=== PATIENT | male | born 1950 | race Two or more races ===

== ENCOUNTER 2017-06-27 13:53 | Inpatient (IN) | payer OTHER ==
[2017-06-27] MEDS ORDERED: METOPROLOL TARTRATE 5 MG/5 ML VIAL ONE ×3 (14:37→15:28)
[2017-06-27] MEDS ORDERED: ASPIRIN 81 MG CHEWABLE TABLETS PO ONE (14:37)
[2017-06-27] MEDS ORDERED: METOPROLOL TARTRATE 5 MG/5 ML VIAL IVPUSH ONE ×3 (14:37→15:30)
[2017-06-27 14:51] LABS: BASO % 0.8 % (0-2.0); HEMATOCRIT 36.9 % (35.4-49); HEMOGLOBIN 11.9 GM/dL (11.7-16.9); LYMPH % 14.3 % (8-40); MCH 27.1 pg (25.7-33.7); MCHC 32.3 g/dl (32.0-35.9); MEAN CELL VOLUME 83.9 fl (80-96); MEAN PLT VOLUME 10.1 fl (7.5-11.1); MONO % 7.3 % (3.8-10.2); NEUT % 76.6 % (42.8-82.8); PLATELET COUNT 232 K/MM3 (134-434); RBC 4.39 M/mm3 (4.00-5.60); RDW 15.6 % (11.9-15.9); WHITE BLOOD COUNT 6.9 K/mm3 (4.0-10.0)
[2017-06-27 15:04] LABS: INR 1.3 (0.82-1.09); PROTHROMBIN TIME (PATIENT) 14.7 SEC (9.7-13.0)
--- NOTE | 2017-06-27 15:13 | PDOC ---
History of Present Illness <Alicia Vanegas - Last Filed: 06/27/17 18:38> <Finesse Fitzpatrick - Last Filed: 06/27/17 19:14> - General Chief Complaint: Chest Pain Stated Complaint: CHEST PAIN Time Seen by Provider: 06/27/17 14:29 - History of Present Illness Initial Comments: 06/27/17 18:38 Patient is a 66 year old Singaporean speaking male with history of hypertension, atrial fibrillation on Coumadin, diabetes and bladder CA s/p chemo and resection with urostomy in place who presents to the ED with chest pain, lightheadedness, sob, palpitations. Patient states that he saw his traffic attendant yesterday for evaluation. Pts family member reports that his blood pressure was abnormally low. He reports associated lightheadedness and shortness of breath. Patient denies fever, chills, nausea, vomiting, diarrhea, melena. Allergies: denies Medications: see nursing notes PCP: Celia Zurita [employer] Officer: Dr. Tejada ([facility]) (Alicia Vanegas) Past History <Alicia Vanegas - Last Filed: 06/27/17 18:38> - Past Medical History Cancer: Yes (Bladder) COPD: No Diabetes: Yes HTN: Yes - Surgical History Abdominal Surgery: Yes (RT ABD UROSTOMY) Neurologic Surgery: Yes - Immunization History Immunization Up to Date: No - Suicide/Smoking/Psychosocial Hx Smoking Status: No Smoking History: Never smoked Number of Cigarettes Smoked Daily: 0 Hx Alcohol Use: No Drug/Substance Use Hx: No Substance Use Type: None Hx Substance Use Treatment: No <Finesse Fitzpatrick - Last Filed: 06/27/17 19:14> - Past Medical History Allergies/Adverse Reactions: Allergies Allergy/AdvReac Type Severity Reaction Status Date / Time No Known Allergies Allergy Verified 06/27/17 14:01 Home Medications: Ambulatory Orders Alfuzosin HCl [Uroxatral] 10 mg PO DAILY 03/04/15 Aspirin [Aspirin EC] 81 mg PO DAILY 03/04/15 Cholecalciferol (Vitamin D3) [Vitamin D -] 400 unit PO DAILY 03/04/15 Citalopram Hydrobromide [Celexa -] 10 mg PO DAILY 03/04/15 Simvastatin [Zocor -] 20 mg PO HS 01/24/16 Metoprolol Tartrate 50 mg PO BID #60 tablet 03/08/15 Warfarin Na [Coumadin] 3 mg PO DAILY #30 tablet 03/08/15 Review of Systems <Alicia Vanegas - Last Filed: 06/27/17 18:38> <Finesse Fitzpatrick - Last Filed: 06/27/17 19:14> - Review of Systems Comments:: CONSTITUTIONAL: No reported: Fever, Chills, Diaphoresis, Generalized Weakness, Malaise, Loss of Appetite HEENT: No reported: Rhinorrhea, Nasal Congestion, Throat Pain, Throat Swelling, Difficulty Swallowing, Mouth Swelling, Ear Pain, Eye Pain, Visual Changes CARDIOVASCULAR: Reported: Chest Pain, Lightheadedness, Palpitations, No reported: , Syncope, Irregular Heart Rate, Peripheral Edema RESPIRATORY: Reported: Shortness of Breath No reported: Cough, SOB with Exertion, Orthopnea, Wheezing, Stridor, Hemoptysis GASTROINTESTINAL: Reported: Abdominal pain No reported: , Abdominal Distension, Nausea, Vomiting, Diarrhea, Constipation, Melena, Hematochezia GENITOURINARY: No reported: Dysuria, Frequency, Urgency, Hesitancy, Flank Pain, Genital Pain MUSCULOSKELETAL: No reported: Myalgia, Arthralgia, Joint Swelling, Back pain, Neck Pain SKIN: No reported: Rash, Itching, Pallor HEMEATOLOGIC/IMMUNOLOGIC: No reported: Easy Bleeding, Easy Bruising, Lymphadenopathy, Frequent infections ENDOCRINE: No reported: Unexplained Weight Gain, Unexplained Weight Loss, Heat Intolerance , Cold Intolerance NEUROLOGIC: No reported: Headache, Focal Weakness, Paresthesias, Vertigo, Lightheadedness, Unsteady Gait, Seizure, Mental Status Changes, Incontinence PSYCHIATRIC: No reported: Anxiety, Depression 06/27/17 18:39 (Alicia Vanegas) *Physical Exam <Alicia Vanegas - Last Filed: 06/27/17 18:38> <Finesse Fitzpatrick - Last Filed: 06/27/17 19:14> - Vital Signs Last Vital Signs Temp Pulse Resp BP Pulse Ox 98.0 F 96 H 18 122/83 96 06/27/17 18:53 06/27/17 18:53 06/27/17 18:53 06/27/17 18:53 06/27/17 18:53 - Physical Exam Comments: 06/27/17 18:39 GENERAL: The patient is awake, alert, and fully oriented, Nontoxic - in no acute distress. HEAD: Normocephalic, atraumatic. EYES: extraocular movements intact, sclera anicteric, conjunctiva clear. ENT: Normal voice, Moist mucous membranes. NECK: Normal range of motion, supple LUNGS: Breath sounds equal, clear to auscultation bilaterally. No wheezes, no rhonchi, no rales. HEART: Tachycardic. Irregular rate and rhythm, without murmur, rub or gallop. ABDOMEN: Soft, nontender, No guarding, no rebound.No CVA tenderness EXTREMITIES: Normal range of motion, trace edema. No cyanosis. No erythema, or tenderness. NEUROLOGICAL: No facial asymmetry, Normal speech, moving all 4 extremities spontaneously symmetrically PSYCH: Normal mood, normal affect. SKIN: Warm, Dry, normal turgor. (Alicia Vanegas) Heart Score/ECG Review <Alicia Vanegas - Last Filed: 06/27/17 18:38> <Finesse Fitzpatrick - Last Filed: 06/27/17 19:14> - ECG Impressions Comment:: 06/27/17 15:42 Twelve-lead EKG was performed and reviewed by me. Irregularly irregular rate of [address] depressionso n lateral leads impression: afib w/ rvr 06/27/17 16:41 Twelve-lead EKG was performed and reviewed by me. irregularluy irregular w HR of 108 twi in lateral leads (Finesse Fitzpatrick) ED Treatment Course - LABORATORY CBC & Chemistry Diagram: 06/27/17 14:20 06/27/17 14:20 - Consult/PCP Time Called: 16:35 (Parminder Bullard) <Alicia Vanegas - Last Filed: 06/27/17 18:38> - LABORATORY CBC & Chemistry Diagram: 06/27/17 14:20 06/27/17 14:20 <Finesse Fitzpatrick - Last Filed: 06/27/17 19:14> - ADDITIONAL ORDERS Additional order review: Laboratory Results 06/27/17 06/27/17 06/27/17 14:20 14:20 14:20 PT with INR 14.70 H INR 1.30 H D Sodium 139 Potassium 4.7 Chloride 109 H Carbon Dioxide 25 Anion Gap 5 L BUN 29 H D Creatinine 1.5 H D Creat Clearance w eGFR 46.54 Random Glucose 144 H Calcium 8.7 Magnesium 1.9 Total Bilirubin 0.7 D AST 14 L ALT 20 D Alkaline Phosphatase 107 D Creatine Kinase 98 Troponin I < 0.02 B-Natriuretic Peptide 4810.01 H Total Protein 7.4 D Albumin 3.5 D TSH 1.25 D 06/27/17 14:20 RBC 4.39 D MCV 83.9 MCHC 32.3 RDW 15.6 MPV 10.1 Neutrophils % 76.6 Lymphocytes % 14.3 Monocytes % 7.3 Eosinophils % 1.0 Basophils % 0.8 - RADIOLOGY Radiology Studies Ordered: Category Date Time Status CHEST X-RAY PORTABLE* [RAD] Stat Radiology 06/27/17 14:37 Completed Radiograph Interpretation: 06/27/17 17:20 Chest X-ray Imaging reveals a large heart, apical lordotic projection, lower cervical spine fusion and some congestive changes. A discrete infiltrate is not seen. The angles are sharp and the soft tissues are intact. Correlation recommended. Reported By: Sergio Kang MD 06/27/17 3523 (Alicia Vanegas) - Medications Given in the ED: ED Medications Discontinued Medications Generic Name Dose Route Start Last Admin Trade Name Freq PRN Reason Stop Dose Admin Aspirin 162 mg 06/27/17 14:37 06/27/17 15:04 Asa - PO 06/27/17 14:38 162 mg ONCE ONE Administration Diltiazem HCl 10 mg 06/27/17 16:32 06/27/17 16:35 Cardizem Injection - IVPUSH 06/27/17 16:33 10 mg ONCE ONE Administration Diltiazem HCl 30 mg 06/27/17 16:40 06/27/17 16:45 Cardizem - PO 06/27/17 16:41 30 mg ONCE ONE Administration Heparin Sodium (Porcine) 5,000 unit 06/27/17 18:26 06/27/17 18:29 Heparin - IVPUSH 06/27/17 18:27 5,000 unit ONCE ONE Administration Metoprolol Tartrate 5 mg 06/27/17 14:37 06/27/17 15:03 Lopressor Injection - IVPUSH 06/27/17 14:38 5 mg ONCE ONE Administration Metoprolol Tartrate 5 mg 06/27/17 15:10 06/27/17 15:14 Lopressor Injection - IVPUSH 06/27/17 15:11 5 mg ONCE ONE Administration Metoprolol Tartrate 5 mg 06/27/17 15:30 06/27/17 15:30 Lopressor Injection - IVPUSH 06/27/17 15:31 5 mg ONCE ONE Administration Medical Decision Making <Alicia Vanegas - Last Filed: 06/27/17 18:38> <Finesse Fitzpatrick - Last Filed: 06/27/17 19:14> - Medical Decision Making 06/27/17 15:36 66y M hx of bladder ca, htn, dm, afib on coumadin presents with complaint of feeling chest pain/lightheadedness, sob, for the past week, had gone to dr. pruett who referred the pt to cardiology. the pt presents today due to perssitent symptoms. on arrival pt noted with HR of 161 afib RVR on ekg ptw as brought to a room placed on monitor, given 5mg metoprolol x 3, bp stable in the 130s/80s. 06/27/17 16:40 HR improved with 10mg dilt IV will give dilt 30mg PO - recommended of 30mg Q6 hr per cardiology, and increase metoprolol 50mg Q8hr per will admit for furhter managment due to cr, will give heparin rather than lovenox 06/27/17 16:[address] delgadillo agree with admission fo furrther management of rapid afib and subtherapeutic inr stabel or tele 06/27/17 19:10 CRITICAL CARE DOCUMENTATION: I spent ~75 minutes of Critical Care time, excluding separately billable procedures, involving high complexity decision making to assess, manipulate and support vital system function(s) to treat single or multiple vital organ system failure and/or to prevent further life threatening deterioration of the patient' s condition. Case discussed in detail with admitting physician including history, physical exam and ancillary studies. Admitting physician has assumed care for the patient, will follow all pending diagnostics and will complete the evaluation and treatment. (Finesse Fitzpatrick) *DC/Admit/Observation/Transfer <Alicia Vanegas - Last Filed: 06/27/17 18:38> - Discharge Dispostion Decision to Admit order: Yes <Finesse Fitzpatrick - Last Filed: 06/27/17 19:14> Diagnosis at time of Disposition: Supratherapeutic INR Atrial fibrillation Qualifiers: Atrial fibrillation type: unspecified Qualified Code(s): I48.91 - Unspecified atrial fibrillation - Discharge Dispostion Condition at time of disposition: Stable - Attestations Scribe Attestion: 06/27/17 18:40 Documentation prepared by Alicia Vanegas, acting as director medical safety for Finesse Fitzpatrick MD. (Alicia Vanegas)
[2017-06-27 15:17] LABS: ALBUMIN 3.5 g/dl (3.4-5.0); ANION GAP 5 (8-16); BILIRUBIN,TOTAL 0.7 mg/dL (0.2-1.0); BLOOD UREA NITROGEN 29 mg/dL (7-18); CALCIUM 8.7 mg/dL (8.5-10.1); CHLORIDE 109 mmol/L (98-107); CO2 25 mmol/L (21-32); CREATININE 1.5 mg/dL (0.7-1.3); GLUCOSE,RANDOM 144 mg/dL (74-106); MAGNESIUM 1.9 mg/dL (1.8-2.4); POTASSIUM 4.7 mmol/L (3.5-5.1); SGOT/AST 14 U/L (15-37); SGPT/ALT 20 U/L (12-78); SODIUM 139 mmol/L (136-145); TOT PROT 7.4 g/dl (6.4-8.2)
[2017-06-27 15:20] LABS: ALK PHOS 107 U/L (45-117); N-TERMINAL BNP 4810.01 pg/ml (5-125)
[2017-06-27] MEDS ORDERED: ASPIRIN 81 MG CHEWABLE TABLETS ONE (15:25)
[2017-06-27] MEDS ORDERED: dilTIAZem HCL 125 MG/25 ML - 25 ML VIAL ONE (16:19)
[2017-06-27] MEDS ORDERED: dilTIAZem HCL 50 MG/10 ML - 10 ML VIAL IVPUSH ONE (16:32)
[2017-06-27] MEDS ORDERED: dilTIAZem HCL 30 MG TABLET (FP) PO ONE (16:40)
[2017-06-27] MEDS ORDERED: dilTIAZem HCL 30 MG TABLET (FP) ONE (16:47)
--- NOTE | 2017-06-27 17:52 | CON.CARD ---
Consult Consult Specialty:: cardiology Reason for Consultation:: AF with RVR - History of Present Illness Chief Complaint: shortness of breath History of Present Illness: 66y M hx of bladder ca, htn, dm, afib on coumadin, nonobstructive CAD on 2013 coronary angiogram (per pt's son), who presents with complaint of feeling chest pain/lightheadedness, sob, for the past week, had gone to dr. morales who referred the pt to cardiology. the pt presents today due to perssitent symptoms. on arrival pt noted with HR of 161 afib RVR on ekg ptw as brought to a room placed on monitor, given 5mg metoprolol x 3, bp stable in the 130s/80s. Pt was in Dr. Morales's office yesterday, and was noted by him to be in AF with RVR for the first time). INR subtherapeutic (?it had been held for a bladder procedure) - History Source History Provided By: Patient, Family Member, Medical Record Limitations to Obtaining History: No Limitations - Past Medical History Cardio/Vascular: Yes: AFIB, HTN, Hyperlipdemia Pulmonary: Yes: Sleep Apnea (rule out) Renal/: Yes: Cancer (bladder) Endocrine: Yes: Diabetes Mellitus - Alcohol/Substance Use Hx Alcohol Use: No History of Substance Use: reports: None - Smoking History Smoking history: Never smoked Aproximately how many cigarettes per day: 0 - Social History ADL: Independent History of Recent Travel: Yes ([place]) Home Medications - Allergies Allergies/Adverse Reactions: Allergies Allergy/AdvReac Type Severity Reaction Status Date / Time No Known Allergies Allergy Verified 06/27/17 14:01 - Home Medications Home Medications: Ambulatory Orders Alfuzosin HCl [Uroxatral] 10 mg PO DAILY 03/04/15 Aspirin [Aspirin EC] 81 mg PO DAILY 03/04/15 Cholecalciferol (Vitamin D3) [Vitamin D -] 400 unit PO DAILY 03/04/15 Citalopram Hydrobromide [Celexa -] 10 mg PO DAILY 03/04/15 Simvastatin [Zocor -] 20 mg PO HS 03/04/15 Metoprolol Tartrate 50 mg PO BID #60 tablet 03/08/15 Warfarin Na [Coumadin] 3 mg PO DAILY #30 tablet 03/08/15 Family Disease History - Family Disease History Family History: Denies Review of Systems - Review of Systems Constitutional: reports: No Symptoms Eyes: reports: No Symptoms HENT: reports: No Symptoms Neck: reports: No Symptoms Cardiovascular: reports: Chest Pain, Shortness of Breath Respiratory: reports: Exercise Intolerance, SOB Genitourinary: reports: No Symptoms Breasts: reports: No Symptoms Reported Musculoskeletal: reports: Muscle Weakness Integumentary: reports: No Symptoms Neurological: reports: Weakness Endocrine: reports: No Symptoms Hematology/Lymphatic: reports: No Symptoms Psychiatric: reports: No Symptoms - Risk Factors Known Risk Factors: Yes: Age, Gender, Hypercholesterolemia, Hypertension, Physical Inactivity, Other (CHF; AF) Vital Signs: Vital Signs Temperature 98.0 F 06/27/17 16:26 Pulse Rate 106 H 06/27/17 17:10 Respiratory Rate 16 06/27/17 17:10 Blood Pressure 99/76 06/27/17 17:10 O2 Sat by Pulse Oximetry (%) 98 06/27/17 17:10 Constitutional: Yes: Anxious, Mild Distress Eyes: Yes: WNL HENT: Yes: WNL Neck: Yes: Supple Respiratory: Yes: Diminished, Tachypnea Gastrointestinal: Yes: Soft Renal/: No: Anuria Cardiovascular: Yes: Tachycardia, Pulse Irregular Heart Sounds: Yes: S1 (varies in intensity), S2 Murmur: Yes: Systolic Murmur, Grade 2 Extremities: Yes: Cool Edema: Yes Edema: LLE: Trace, RLE: Trace Peripheral Pulses WNL: Yes Integumentary: Yes: WNL Neurological: Yes: Alert, Oriented, Weakness Psychiatric: Yes: WNL - Other Data Labs, Other Data: CBC, BMP 06/27/17 14:20 06/27/17 14:20 INR, PTT INR 1.30 (0.82-1.09) H D 06/27/17 14:20 Troponin, BNP 06/27/17 14:20 Troponin I < 0.02 B-Natriuretic Peptide 4810.01 H Troponin, BNP 06/27/17 14:20 Troponin I < 0.02 B-Natriuretic Peptide 4810.01 H Abnormal Lab Results 06/27/17 06/27/17 06/27/17 14:20 14:20 17:10 Hgb Hct Neutrophils % PT with INR 14.70 H INR 1.30 H D PTT (Actin FS) D-Dimer ABG pO2 at Pt Temp ABG HCO3 ABG O2 Sat (Measured) ABG Base Excess Chloride 109 H Anion Gap 5 L BUN 29 H D Creatinine 1.5 H D Random Glucose 144 H Calcium AST 14 L B-Natriuretic Peptide 4810.01 H HDL Cholesterol Free T4 1.21 H 06/28/17 06/28/17 06/28/17 01:15 02:43 03:15 Hgb Hct Neutrophils % PT with INR INR PTT (Actin FS) 39.6 H D D-Dimer 1027 H ABG pO2 at Pt Temp 217.0 H* ABG HCO3 19.0 L ABG O2 Sat (Measured) 99.7 H* ABG Base Excess -5.3 L Chloride Anion Gap BUN Creatinine Random Glucose Calcium AST B-Natriuretic Peptide HDL Cholesterol Free T4 06/28/17 06/28/17 06:00 06:00 Hgb 11.3 L Hct 34.2 L Neutrophils % 84.9 H PT with INR INR PTT (Actin FS) D-Dimer ABG pO2 at Pt Temp ABG HCO3 ABG O2 Sat (Measured) ABG Base Excess Chloride 109 H Anion Gap 7 L BUN 38 H D Creatinine 1.7 H Random Glucose 180 H D Calcium 7.9 L AST B-Natriuretic Peptide HDL Cholesterol 23 L Free T4 Imaging - Results EKG: Image Reviewed (AF with RVR) Problem List - Problems (1) Obesity Code(s): E66.9 - OBESITY, UNSPECIFIED (2) Atrial fibrillation with rapid ventricular response Assessment/Plan: On metoprolol: increase dose to 50 mg q8h. Now on diltiazem 30 mg PO q6h. IV heparin until warfarin --> INR 2-3. F/u telemetry. Serial HR and BP. TSH Serial TNIs Serial EKG ECHO for LVEF, wall motion, chamber sizes. Code(s): I48.91 - UNSPECIFIED ATRIAL FIBRILLATION (3) Hyperlipidemia Code(s): E78.5 - HYPERLIPIDEMIA, UNSPECIFIED Qualifiers: Hyperlipidemia type: Pure hypercholesterolemia (4) Hypertension Code(s): I10 - ESSENTIAL (PRIMARY) HYPERTENSION Qualifiers: Hypertension type: essential hypertension Qualified Code(s): I10 - Essential (primary) hypertension (5) CAD (coronary artery disease) Assessment/Plan: Son reports 30-40% ?two vessel disease on 2014 angiogram. F/u records. Reported STT changes noted while in AF qwith RVR in office yesterday. F/u TNI serially: initial TNI is < 0.02.. TSH WNL. Stress MIBI when stable. Code(s): I25.10 - ATHSCL HEART DISEASE OF [place] CORONARY ARTERY W/O ANG PCTRS
[2017-06-27] MEDS ORDERED: HEPARIN NA (PORCINE) 5,000 UNITS/ML 1ML VIAL IVPUSH ONE (18:26)
[2017-06-27] MEDS ORDERED: HEPARIN NA (PORCINE) 5,000 UNITS/ML 1ML VIAL ONE (18:41)
[2017-06-27] MEDS: HEPARIN INFUSION - 25,000 UNITS/500 ML INFUS.BAG IVPB SCH (18:45)
[2017-06-27] MEDS ORDERED: ENOXAPARIN NA (PORCINE) 120 MG/0.8 ML DISP.SYRIN SQ SCH (22:00)
[2017-06-27] MEDS ORDERED: ATORVASTATIN CA 10 MG TABLET (FP) PO SCH (22:00)
[2017-06-27] MEDS: METOPROLOL TARTRATE 50 MG TABLET (FP) PO SCH (22:18)
[2017-06-28] MEDS ORDERED: dilTIAZem HCL 25 MG/5 ML - 5 ML VIAL IVPUSH PRN (00:03)
[2017-06-28 00:36] VITALS: BMI 36.8
[2017-06-28] MEDS: dilTIAZem HCL 30 MG TABLET (FP) PO SCH ×4 (01:52→17:59)
[2017-06-28] MEDS ORDERED: FUROSEMIDE 40 MG/4 ML INJECTABLE VIAL ONE (02:37)
[2017-06-28] MEDS ORDERED: FUROSEMIDE 40 MG/4 ML INJECTABLE VIAL IVPUSH ONE ×2 (02:45→03:22)
[2017-06-28] MEDS ORDERED: ISOSORBIDE MONONITRATE 30 MG TAB.SR.24H (FP) PO ONE (02:45)
[2017-06-28 03:32] LABS: ARTERIAL BLOOD GAS BASE EXCESS -5.3 meq/l (-2-2); ARTERIAL BLOOD GAS PCO2 35.1 mmHg (35-45); ARTERIAL BLOOD GAS pH 7.35 (7.35-7.45)
[2017-06-28 03:36] LABS: ALLENS TEST POSITIVE
[2017-06-28 03:40] LABS: ARTERIAL BLD GAS O2 SATURATION 99.7 % (90-98.9)
--- NOTE | 2017-06-28 06:23 | HOSP ---
Subjective - Review of Symptoms Subjective: This is a delayed entry. Called by RN at approximately 12:30AM as pt was diaphoretic, hypoxic with worsening SOB. Examined patient at bedside. 02 sat 86% on 3L NC HOB elevated, pt placed on non-rebreather mask and improved sat to 92-93%. Respiratory at bedside, neb tx x 1 given. Stat troponin ordered (returned negative), stat EKG done without significant changes from past EKG. Pt sx improved, no longer c/o SOB, appeared comfortable. Called again at 3AM by nurse for reevaluation - pt still sat 100% on non-rebreather. Pt no longer SOB, sleeping. On exam, in sinus and with bibasilar crackles. -ABG was done - with elevated P02 at 207, ordered for change to NC 02 -CXR ordered -20mg Lasix IVP x 1 given Pt currently feeling improved without complaint, sat well. Physical Examination Vital Signs: Vital Signs Temperature 97.8 F 06/27/17 21:00 Pulse Rate 126 H 06/27/17 21:00 Respiratory Rate 20 06/27/17 21:00 Blood Pressure 130/96 06/27/17 21:00 O2 Sat by Pulse Oximetry (%) 94 L 06/27/17 21:00 Labs: CBC, BMP 06/27/17 14:20 06/27/17 14:20 Visit type - Emergency Visit Emergency Visit: No - New Patient This patient is new to me today: Yes Date on this admission: 06/28/17 - Critical Care Critical Care patient: No
[2017-06-28] MEDS: METOPROLOL TARTRATE 50 MG TABLET (FP) PO SCH ×4 (06:44→22:17)
[2017-06-28 06:52] LABS: BASO % 0.4 % (0-2.0); EOS % 0.1 % (0-4.5); HEMATOCRIT 34.2 % (35.4-49); HEMOGLOBIN 11.3 GM/dL (11.7-16.9); LYMPH % 8.4 % (8-40); MCH 27.8 pg (25.7-33.7); MCHC 32.9 g/dl (32.0-35.9); MEAN CELL VOLUME 84.5 fl (80-96); MEAN PLT VOLUME 10.1 fl (7.5-11.1); MONO % 6.2 % (3.8-10.2); NEUT % 84.9 % (42.8-82.8); PLATELET COUNT 238 K/MM3 (134-434); RBC 4.05 M/mm3 (4.00-5.60); RDW 15.5 % (11.9-15.9); WHITE BLOOD COUNT 9.1 K/mm3 (4.0-10.0)
[2017-06-28 07:10] LABS: CHLORIDE 109 mmol/L (98-107); CHOLESTEROL 107 mg/dL (50-200); POTASSIUM 4.9 mmol/L (3.5-5.1); SODIUM 140 mmol/L (136-145); TRIGLYCERIDES 80 mg/dL (35-160)
[2017-06-28 07:25] LABS: ANION GAP 7 (8-16); BLOOD UREA NITROGEN 38 mg/dL (7-18); CALCIUM 7.9 mg/dL (8.5-10.1); CO2 24 mmol/L (21-32); CREATININE 1.7 mg/dL (0.7-1.3); GLUCOSE,RANDOM 180 mg/dL (74-106); HDL CHOLESTEROL 23 mg/dL (40-60)
[2017-06-28] MEDS: HEPARIN INFUSION - 25,000 UNITS/500 ML INFUS.BAG IVPB SCH ×2 (09:00→18:00)
--- NOTE | 2017-06-28 09:55 | PN ---
Progress Note, Physician Chief Complaint: Pt sitting up; A&Ox3; feels better now (less dyspneic). Last night, converted to sinus rhythm; then had SOB with diaphoresis-->100% nonrebreather transiently. Responded to IV furosemide, Imdur. Now again in AF. History of Present Illness: 66y M hx of bladder ca, htn, dm, afib on coumadin, nonobstructive CAD on 2013 coronary angiogram (per pt's son), who presents with complaint of feeling chest pain/lightheadedness, sob, for the past week, had gone to dr. morales who referred the pt to cardiology. the pt presents today due to perssitent symptoms. on arrival pt noted with HR of 161 afib RVR on ekg ptw as brought to a room placed on monitor, given 5mg metoprolol x 3, bp stable in the 130s/80s. Pt was in Dr. Morales's office yesterday, and was noted by him to be in AF with RVR for the first time). INR subtherapeutic (?it had been held for a bladder procedure) - Current Medication List Current Medications: Active Medications Aspirin (Ecotrin -) 81 mg PO DAILY [facility] Atorvastatin Calcium (Lipitor -) 10 mg PO HS [facility] Last Admin: 06/27/17 22:18 Dose: 10 mg Cholecalciferol (Vitamin D3 -) 400 unit PO DAILY [facility] Citalopram Hydrobromide (Celexa -) 10 mg PO DAILY [facility] Diltiazem HCl (Cardizem -) 30 mg PO Q6HPO [facility] Last Admin: 06/28/17 06:44 Dose: Not Given Diltiazem HCl (Cardizem Injection -) 10 mg IVPUSH Q6H PRN PRN Reason: HR > 160 Heparin Sodium/Dextrose (Heparin Infusion -) 25,000 units in 500 mls @ 20 mls/ hr IVPB TITR ANGELITA; 1,000 UNITS/HR PRN Reason: Protocol Last Titration: 06/28/17 02:47 Dose: 1,150 units/hr, 23 mls/hr Metoprolol Tartrate (Lopressor -) 50 mg PO BID [facility] Last Admin: 06/27/17 22:18 Dose: 50 mg Metoprolol Tartrate (Lopressor -) 50 mg PO TID [facility] Last Admin: 06/28/17 06:44 Dose: 50 mg Pantoprazole Sodium (Protonix -) 20 mg PO DAILY [facility] Tamsulosin HCl (Flomax -) 0.4 mg PO DAILY@0830 [facility] Warfarin Sodium (Coumadin -) 5 mg PO DAILY@1800 [facility] - Objective Vital Signs: Vital Signs Temperature 98.3 F 06/28/17 06:23 Pulse Rate 70 06/28/17 06:23 Respiratory Rate 20 06/28/17 06:23 Blood Pressure 114/67 06/28/17 06:23 O2 Sat by Pulse Oximetry (%) 94 L 06/27/17 21:00 Constitutional: Yes: Calm Eyes: Yes: WNL HENT: Yes: WNL Neck: Yes: WNL Cardiovascular: Yes: Pulse Irregular, S1 (varies in intensity), S2 Respiratory: Yes: Diminished Gastrointestinal: Yes: Soft ...Rectal Exam: Yes: Deferred Genitourinary: No: Anuria Musculoskeletal: Yes: Muscle Weakness Extremities: Yes: Cool Edema: Yes Edema: LLE: Trace, RLE: Trace Peripheral Pulses WNL: Yes Neurological: Yes: WNL Psychiatric: Yes: WNL Labs: CBC, BMP 06/28/17 06:00 06/28/17 06:00 INR, PTT INR 1.30 (0.82-1.09) H D 06/27/17 14:20 Abnormal Lab Results 06/28/17 06/28/17 06/28/17 06:00 06:00 14:40 RBC Hgb Hct PT with INR INR PTT (Actin FS) 51.2 H Chloride 109 H Anion Gap 7 L BUN 38 H D Creatinine 1.7 H Random Glucose 180 H D Hemoglobin A1c % 7.3 H D Calcium 7.9 L HDL Cholesterol 23 L 06/29/17 06/29/17 06:25 06:25 RBC 3.93 L Hgb 10.7 L Hct 33.1 L PT with INR 14.90 H INR 1.32 H PTT (Actin FS) Chloride Anion Gap BUN Creatinine Random Glucose Hemoglobin A1c % Calcium HDL Cholesterol - ....Imaging Other: Image Reviewed (telemetry: AF with RVR converted to NSR overnight; in early am, reverted back to AF) Problem List - Problems (1) Obesity Code(s): E66.9 - OBESITY, UNSPECIFIED (2) Atrial fibrillation with rapid ventricular response Assessment/Plan: On metoprolol: increase dose to 50 mg q8h. Now on diltiazem 30 mg PO q6h (held doses when BP dropped and pt was in NSR; consider restart today given recurrence of AF). IV heparin until warfarin --> INR 2-3. F/u telemetry. Serial HR and BP. TSH WNL. Serial TNIs: < 0.02 Serial EKG ECHO for LVEF, wall motion, chamber sizes. Code(s): I48.91 - UNSPECIFIED ATRIAL FIBRILLATION (3) Hyperlipidemia Code(s): E78.5 - HYPERLIPIDEMIA, UNSPECIFIED Qualifiers: Hyperlipidemia type: Pure hypercholesterolemia (4) Hypertension Code(s): I10 - ESSENTIAL (PRIMARY) HYPERTENSION Qualifiers: Hypertension type: essential hypertension Qualified Code(s): I10 - Essential (primary) hypertension (5) CAD (coronary artery disease) Assessment/Plan: Son reports 30-40% ?two vessel disease on 2014 angiogram. F/u records. Reported STT changes noted while in AF with RVR in office yesterday. F/u TNI serially: initial TNI is < 0.02.. TSH WNL. Stress MIBI done 12/2016: no evidence of ischemia. Given STT changes noted while in AF with RVR, and clinical picture, vic require further evaluation to r/o CAD, likely coronary angiogram. Code(s): I25.10 - ATHSCL HEART DISEASE OF [place] CORONARY ARTERY W/O ANG PCTRS
[2017-06-28] MEDS: CHOLECALCIFEROL (VITAMIN D3) 400 UNIT TABLET (FP) PO SCH (10:00)
--- NOTE | 2017-06-28 10:22 | HP ---
Admitting History and Physical - Admission History of Present Illness: 66 year old Guinean speaking male with history of hypertension, atrial fibrillation on Coumadin, diabetes and bladder CA s/p chemo and resection with urostomy in place who presents to the ED with chest pain, lightheadedness, sob, palpitations. Patient states that he saw his systems engineer (DR Briones from [facility]) on thursday and w/u in progress for cad. Last night pt had sob requiring more oxygen This am better no cp - Past Medical History Cardiovascular: Yes: AFIB, HTN, Hyperlipdemia Pulmonary: Yes: Sleep Apnea (rule out) Renal/: Yes: Cancer (bladder) Endocrine: Yes: Diabetes Mellitus - Smoking History Smoking history: Never smoked Have you smoked in the past 12 months: No Aproximately how many cigarettes per day: 0 - Alcohol/Substance Use Hx Alcohol Use: No History of Substance Use: reports: None - Social History ADL: Independent History of Recent Travel: Yes ([place]) Home Medications - Allergies Allergies/Adverse Reactions: Allergies Allergy/AdvReac Type Severity Reaction Status Date / Time No Known Allergies Allergy Verified 06/27/17 14:01 - Home Medications Home Medications: Ambulatory Orders Alfuzosin HCl [Uroxatral] 10 mg PO DAILY 03/04/15 Aspirin [Aspirin EC] 81 mg PO DAILY 03/04/15 Cholecalciferol (Vitamin D3) [Vitamin D -] 400 unit PO DAILY 03/04/15 Citalopram Hydrobromide [Celexa -] 10 mg PO DAILY 03/04/15 Simvastatin [Zocor -] 20 mg PO HS 03/04/15 Metoprolol Tartrate 50 mg PO BID #60 tablet 03/08/15 Warfarin Na [Coumadin] 3 mg PO DAILY #30 tablet 03/08/15 Review of Systems - Review of Systems Constitutional: reports: Weakness Cardiovascular: reports: Chest Pain, Palpitations. denies: Edema Respiratory: reports: SOB, SOB on Exertion Neurological: reports: Weakness Physical Examination Vital Signs: Vital Signs Temperature 98.3 F 06/28/17 06:23 Pulse Rate 70 06/28/17 06:23 Respiratory Rate 20 06/28/17 06:23 Blood Pressure 114/67 06/28/17 06:23 O2 Sat by Pulse Oximetry (%) 94 L 06/27/17 21:00 Cardiovascular: Yes: Pulse Irregular, S1, S2 Respiratory: Yes: Regular, CTA Bilaterally Gastrointestinal: Yes: Normal Bowel Sounds, Soft Edema: No Labs: CBC, BMP 06/28/17 06:00 06/28/17 06:00 Problem List - Problems (1) Atrial fibrillation Assessment/Plan: -continue with AC --coumadin and heparin -same meds and monitor rate Code(s): I48.91 - UNSPECIFIED ATRIAL FIBRILLATION Qualifiers: Atrial fibrillation type: unspecified Qualified Code(s): I48.91 - Unspecified atrial fibrillation (2) CAD (coronary artery disease) Assessment/Plan: -on asa -pt will need yo follow up with cardio regarding cath depending on hospital course -statin -echo Code(s): I25.10 - ATHSCL HEART DISEASE OF [place] CORONARY ARTERY W/O ANG PCTRS (3) Hyperlipidemia Code(s): E78.5 - HYPERLIPIDEMIA, UNSPECIFIED Qualifiers: Hyperlipidemia type: Pure hypercholesterolemia (4) Hypertension Code(s): I10 - ESSENTIAL (PRIMARY) HYPERTENSION Qualifiers: Hypertension type: essential hypertension Qualified Code(s): I10 - Essential (primary) hypertension (5) CHF (congestive heart failure) Code(s): I50.9 - HEART FAILURE, UNSPECIFIED (6) SOB (shortness of breath) Code(s): R06.02 - SHORTNESS OF BREATH
[2017-06-28] MEDS: PANTOPRAZOLE 20 MG TABLET (FP) PO SCH (10:32)
[2017-06-28] MEDS: CITALOPRAM HYDROBROMIDE 10 MG TABLET (FP) PO SCH (10:32)
[2017-06-28] MEDS: TAMSULOSIN HCL 0.4 MG CAP.ER.24H (FP) PO SCH (10:32)
[2017-06-28] MEDS: ASPIRIN COATED 81 MG TABLET.EC PO SCH (10:32)
--- NOTE | 2017-06-28 13:46 | CON.PULM ---
Consult Consult Specialty:: PULMONARY Referred by:: MANOJ Reason for Consultation:: SOB - History of Present Illness Chief Complaint: SOB History of Present Illness: Patient is a 66 year old Cambodian speaking male with history of hypertension, atrial fibrillation on Coumadin, diabetes and bladder CA s/p chemo and resection with urostomy in place who presents to the ED with chest pain, lightheadedness, sob, palpitations. Patient states that he saw his site inspector yesterday for evaluation. Pts family member reports that his blood pressure was abnormally low. He reports associated lightheadedness and shortness of breath. Patient denies fever, chills, nausea, vomiting, diarrhea, melena. 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 Cardio/Vascular: Yes: AFIB, HTN, Hyperlipdemia Pulmonary: Yes: Sleep Apnea (rule out) Gastrointestinal: No: Ascites Hepatobiliary: No: Cirrhosis Renal/: Yes: Renal Inusuff, Cancer (bladder) Heme/Onc: Yes: Anemia Endocrine: Yes: Diabetes Mellitus - Alcohol/Substance Use Hx Alcohol Use: No History of Substance Use: reports: None - Smoking History Smoking history: Never smoked Have you smoked in the past 12 months: No Aproximately how many cigarettes per day: 0 - Social History ADL: Independent Place of : Other History of Recent Travel: Yes ([place]) Home Medications - Allergies Allergies/Adverse Reactions: Allergies Allergy/AdvReac Type Severity Reaction Status Date / Time No Known Allergies Allergy Verified 06/27/17 14:01 - Home Medications Home Medications: Ambulatory Orders Alfuzosin HCl [Uroxatral] 10 mg PO DAILY 03/04/15 Aspirin [Aspirin EC] 81 mg PO DAILY 03/04/15 Cholecalciferol (Vitamin D3) [Vitamin D -] 400 unit PO DAILY 03/04/15 Citalopram Hydrobromide [Celexa -] 10 mg PO DAILY 03/04/15 Simvastatin [Zocor -] 20 mg PO HS 03/04/15 Metoprolol Tartrate 50 mg PO BID #60 tablet 03/08/15 Warfarin Na [Coumadin] 3 mg PO DAILY #30 tablet 03/08/15 Family Disease History - Family Disease History Family History: Unremarkable Review of Systems Unable to obtain ROS, reason: DIFFICULT TO OBTAIN - Review of Systems Cardiovascular: denies: Chest Pain Respiratory: denies: Cough, SOB on Exertion Physical Exam Vital Sings: Vital Signs Temperature 98.3 F 06/28/17 06:23 Pulse Rate 70 06/28/17 06:23 Respiratory Rate 20 06/28/17 06:23 Blood Pressure 114/67 06/28/17 06:23 O2 Sat by Pulse Oximetry (%) 94 L 06/27/17 21:00 Constitutional: Yes: Calm Eyes: Yes: EOM Intact HENT: Yes: Normocephalic Neck: Yes: Trachea Midline Cardiovascular: Yes: Pulse Irregular, S1, S2 Respiratory: Yes: Diminished Gastrointestinal: Yes: Normal Bowel Sounds, Soft, Abdomen, Obese Edema: LLE: 1+, RLE: 1+ Neurological: Yes: Alert Labs: CBC, BMP 06/28/17 06:00 06/28/17 06:00 ABG Results ABG pH 7.35 (7.35-7.45) 06/28/17 03:15 ABG pCO2 at Pt Temp 35.1 mmHg (35-45) 06/28/17 03:15 ABG pO2 at Pt Temp 217.0 mmHg (80-100) H* 06/28/17 03:15 ABG HCO3 19.0 meq/L (22-26) L 06/28/17 03:15 ABG O2 Sat (Measured) 99.7 % (90-98.9) H* 06/28/17 03:15 ABG O2 Content 17.5 % vol (15-22) 06/28/17 03:15 ABG Base Excess -5.3 meq/l (-2-2) L 06/28/17 03:15 REST REVIEWED Imaging - Results Chest X-ray: Report Reviewed, Image Reviewed Problem List - Problems (1) Renal insufficiency Code(s): N28.9 - DISORDER OF KIDNEY AND URETER, UNSPECIFIED (2) Atrial fibrillation Code(s): I48.91 - UNSPECIFIED ATRIAL FIBRILLATION Qualifiers: Atrial fibrillation type: unspecified Qualified Code(s): I48.91 - Unspecified atrial fibrillation (3) CAD (coronary artery disease) Code(s): I25.10 - ATHSCL HEART DISEASE OF [place] CORONARY ARTERY W/O ANG PCTRS (4) CHF (congestive heart failure) Code(s): I50.9 - HEART FAILURE, UNSPECIFIED (5) Obesity Code(s): E66.9 - OBESITY, UNSPECIFIED (6) SOB (shortness of breath) Code(s): R06.02 - SHORTNESS OF BREATH (7) Atrial fibrillation with rapid ventricular response Code(s): I48.91 - UNSPECIFIED ATRIAL FIBRILLATION Assessment/Plan AF WITH RVR RESOLVING VOLUME OVERLOAD IMPROVING HPL/HTN/CAD RENAL INSUFFICIENCY M. OBESITY/DM BLADDER CA S/P RESECTION/CHEMOTX O2 TO KEEP SAT GREATER THAN 90% RATE CONTROL/ANTICOAGULATION DIURETICS IF REQUIRED WILL FOLLOW Wilberto SRIVASTAVA MD
[2017-06-28] MEDS: WARFARIN NA 5 MG TABLET (UD) PO SCH (17:59)
[2017-06-28] MEDS: ATORVASTATIN CA 40 MG TABLET (FP) PO SCH (22:18)
[2017-06-29] MEDS: dilTIAZem HCL 30 MG TABLET (FP) PO SCH ×4 (00:15→18:47)
[2017-06-29] MEDS: METOPROLOL TARTRATE 50 MG TABLET (FP) PO SCH ×3 (06:08→21:58)
[2017-06-29 06:46] LABS: BASO % 0.7 % (0-2.0); EOS % 2.4 % (0-4.5); HEMATOCRIT 33.1 % (35.4-49); HEMOGLOBIN 10.7 GM/dL (11.7-16.9); LYMPH % 17.6 % (8-40); MCH 27.2 pg (25.7-33.7); MCHC 32.3 g/dl (32.0-35.9); MEAN CELL VOLUME 84.1 fl (80-96); MEAN PLT VOLUME 9.9 fl (7.5-11.1); MONO % 7.9 % (3.8-10.2); NEUT % 71.4 % (42.8-82.8); PLATELET COUNT 196 K/MM3 (134-434); RBC 3.93 M/mm3 (4.00-5.60); RDW 15.3 % (11.9-15.9); WHITE BLOOD COUNT 6.5 K/mm3 (4.0-10.0)
[2017-06-29 07:15] LABS: CHLORIDE 108 mmol/L (98-107); INR 1.32 (0.82-1.09); POTASSIUM 4.3 mmol/L (3.5-5.1); PROTHROMBIN TIME (PATIENT) 14.9 SEC (9.7-13.0); SODIUM 138 mmol/L (136-145)
[2017-06-29 07:36] LABS: ALBUMIN 3.1 g/dl (3.4-5.0); ALK PHOS 90 U/L (45-117); ANION GAP 8 (8-16); BILIRUBIN,TOTAL 0.6 mg/dL (0.2-1.0); BLOOD UREA NITROGEN 39 mg/dL (7-18); CALCIUM 7.9 mg/dL (8.5-10.1); CO2 22 mmol/L (21-32); CREATININE 1.5 mg/dL (0.7-1.3); GLUCOSE,RANDOM 150 mg/dL (74-106); SGOT/AST 15 U/L (15-37); SGPT/ALT 24 U/L (12-78); TOT PROT 6.6 g/dl (6.4-8.2)
[2017-06-29] MEDS: HEPARIN INFUSION - 25,000 UNITS/500 ML INFUS.BAG IVPB SCH ×2 (09:00→16:00)
[2017-06-29] MEDS ORDERED: PT OWN MED DRAWER 7, Y5N ONE (09:42)
[2017-06-29] MEDS: PANTOPRAZOLE 20 MG TABLET (FP) PO SCH (09:59)
[2017-06-29] MEDS: ASPIRIN COATED 81 MG TABLET.EC PO SCH (09:59)
[2017-06-29] MEDS: CITALOPRAM HYDROBROMIDE 10 MG TABLET (FP) PO SCH (09:59)
[2017-06-29] MEDS: TAMSULOSIN HCL 0.4 MG CAP.ER.24H (FP) PO SCH (10:00)
[2017-06-29] MEDS: CHOLECALCIFEROL (VITAMIN D3) 400 UNIT TABLET (FP) PO SCH (10:00)
--- NOTE | 2017-06-29 10:19 | PN ---
Progress Note, Physician History of Present Illness: 66y M hx of bladder ca, htn, dm, afib on coumadin, nonobstructive CAD on 2013 coronary angiogram (per pt's son), who presents with complaint of feeling chest pain/lightheadedness, sob, for the past week, had gone to dr. morales who referred the pt to cardiology. the pt presents today due to perssitent symptoms. on arrival pt noted with HR of 161 afib RVR on ekg ptw as brought to a room placed on monitor, given 5mg metoprolol x 3, bp stable in the 130s/80s. Pt was in Dr. Morales's office yesterday, and was noted by him to be in AF with RVR for the first time). INR subtherapeutic (?it had been held for a bladder procedure) - Current Medication List Current Medications: Active Medications Aspirin (Ecotrin -) 81 mg PO DAILY [facility] Last Admin: 06/29/17 09:59 Dose: 81 mg Atorvastatin Calcium (Lipitor -) 40 mg PO HS [facility] Last Admin: 06/28/17 22:18 Dose: 40 mg Cholecalciferol (Vitamin D3 -) 400 unit PO DAILY [facility] Last Admin: 06/29/17 10:00 Dose: 400 unit Citalopram Hydrobromide (Celexa -) 10 mg PO DAILY [facility] Last Admin: 06/29/17 09:59 Dose: 10 mg Diltiazem HCl (Cardizem -) 30 mg PO Q6HPO [facility] Last Admin: 06/29/17 06:09 Dose: 30 mg Diltiazem HCl (Cardizem Injection -) 10 mg IVPUSH Q6H PRN PRN Reason: HR > 160 Heparin Sodium/Dextrose (Heparin Infusion -) 25,000 units in 500 mls @ 20 mls/ hr IVPB TITR ANGELITA; 1,000 UNITS/HR PRN Reason: Protocol Last Admin: 06/29/17 09:00 Dose: 1,350 units/hr, 27 mls/hr Metoprolol Tartrate (Lopressor -) 50 mg PO TID [facility] Last Admin: 06/29/17 06:08 Dose: 50 mg Pantoprazole Sodium (Protonix -) 20 mg PO DAILY [facility] Last Admin: 06/29/17 09:59 Dose: 20 mg Tamsulosin HCl (Flomax -) 0.4 mg PO DAILY@0830 [facility] Last Admin: 06/29/17 10:00 Dose: 0.4 mg Warfarin Sodium (Coumadin -) 5 mg PO DAILY@1800 [facility] Last Admin: 06/28/17 17:59 Dose: 5 mg - Objective Vital Signs: Vital Signs Temperature 97.2 F L 06/29/17 05:20 Pulse Rate 96 H 06/29/17 05:20 Respiratory Rate 20 06/29/17 05:20 Blood Pressure 102/69 06/29/17 05:20 O2 Sat by Pulse Oximetry (%) 95 06/28/17 21:00 Eyes: Yes: WNL, Conjunctiva Clear, EOM Intact HENT: Yes: WNL, Atraumatic, Normocephalic Neck: Yes: WNL, Supple, Trachea Midline Cardiovascular: Yes: WNL, Regular Rate and Rhythm Respiratory: Yes: WNL, Regular, CTA Bilaterally Gastrointestinal: Yes: WNL, Normal Bowel Sounds Genitourinary: Yes: WNL Musculoskeletal: Yes: WNL Extremities: Yes: WNL Edema: No Integumentary: Yes: WNL Neurological: Yes: WNL, Alert, Oriented ...Motor Strength: WNL Psychiatric: Yes: WNL Labs: CBC, BMP 06/29/17 06:25 06/29/17 06:25 INR, PTT INR 1.32 (0.82-1.09) H 06/29/17 06:25 Assessment/Plan - Problems (1) Obesity Code(s): E66.9 - OBESITY, UNSPECIFIED (2) Atrial fibrillation with rapid ventricular response Assessment/Plan: On metoprolol: increase dose to 50 mg q8h. Now on diltiazem 30 mg PO q6h (held doses when BP dropped and pt was in NSR; consider restart today given recurrence of AF). IV heparin until warfarin --> INR 2-3. F/u telemetry. Serial HR and BP. TSH WNL. Serial TNIs: < 0.02 Serial EKG ECHO for LVEF, wall motion, chamber sizes. Code(s): I48.91 - UNSPECIFIED ATRIAL FIBRILLATION (3) Hyperlipidemia Code(s): E78.5 - HYPERLIPIDEMIA, UNSPECIFIED Qualifiers: Hyperlipidemia type: Pure hypercholesterolemia (4) Hypertension Code(s): I10 - ESSENTIAL (PRIMARY) HYPERTENSION Qualifiers: Hypertension type: essential hypertension Qualified Code(s): I10 - Essential (primary) hypertension (5) CAD (coronary artery disease) Assessment/Plan: Son reports 30-40% ?two vessel disease on 2013 angiogram. F/u records. Reported STT changes noted while in AF with RVR in office yesterday. F/u TNI serially: initial TNI is < 0.02.. TSH WNL. Stress MIBI done 12/2016: no evidence of ischemia. Given STT changes noted while in AF with RVR, and clinical picture, vic require further evaluation to r/o CAD, likely coronary angiogram. Code(s): I25.10 - ATHSCL HEART DISEASE OF [place] CORONARY ARTERY W/O ANG PCTRS
--- NOTE | 2017-06-29 10:47 | PN ---
Progress Note, Physician History of Present Illness: PULMONARY ALERT,NAD,-SOB,-CP - Current Medication List Current Medications: Active Medications Aspirin (Ecotrin -) 81 mg PO DAILY [facility] Last Admin: 06/29/17 09:59 Dose: 81 mg Atorvastatin Calcium (Lipitor -) 40 mg PO HS [facility] Last Admin: 06/28/17 22:18 Dose: 40 mg Cholecalciferol (Vitamin D3 -) 400 unit PO DAILY [facility] Last Admin: 06/29/17 10:00 Dose: 400 unit Citalopram Hydrobromide (Celexa -) 10 mg PO DAILY [facility] Last Admin: 06/29/17 09:59 Dose: 10 mg Diltiazem HCl (Cardizem -) 30 mg PO Q6HPO [facility] Last Admin: 06/29/17 06:09 Dose: 30 mg Diltiazem HCl (Cardizem Injection -) 10 mg IVPUSH Q6H PRN PRN Reason: HR > 160 Heparin Sodium/Dextrose (Heparin Infusion -) 25,000 units in 500 mls @ 20 mls/ hr IVPB TITR ANGELITA; 1,000 UNITS/HR PRN Reason: Protocol Last Admin: 06/29/17 09:00 Dose: 1,350 units/hr, 27 mls/hr Metoprolol Tartrate (Lopressor -) 50 mg PO TID [facility] Last Admin: 06/29/17 06:08 Dose: 50 mg Pantoprazole Sodium (Protonix -) 20 mg PO DAILY [facility] Last Admin: 06/29/17 09:59 Dose: 20 mg Tamsulosin HCl (Flomax -) 0.4 mg PO DAILY@0830 [facility] Last Admin: 06/29/17 10:00 Dose: 0.4 mg Warfarin Sodium (Coumadin -) 5 mg PO DAILY@1800 [facility] Last Admin: 06/28/17 17:59 Dose: 5 mg - Objective Vital Signs: Vital Signs Temperature 97.2 F L 06/29/17 05:20 Pulse Rate 96 H 06/29/17 05:20 Respiratory Rate 20 06/29/17 05:20 Blood Pressure 102/69 06/29/17 05:20 O2 Sat by Pulse Oximetry (%) 95 06/28/17 21:00 Constitutional: Yes: Well Nourished, Calm Eyes: Yes: WNL HENT: Yes: WNL Neck: Yes: WNL Cardiovascular: Yes: Pulse Irregular, S1, S2 Respiratory: Yes: Diminished (BIBASIALR RALES), Rales Gastrointestinal: Yes: Normal Bowel Sounds, Soft Extremities: Yes: WNL Edema: No Labs: CBC, BMP 06/29/17 06:25 06/29/17 06:25 INR, PTT INR 1.32 (0.82-1.09) H 06/29/17 06:25 Assessment/Plan Problem List - Problems (1) Renal insufficiency Code(s): N28.9 - DISORDER OF KIDNEY AND URETER, UNSPECIFIED (2) Atrial fibrillation Code(s): I48.91 - UNSPECIFIED ATRIAL FIBRILLATION Qualifiers: Atrial fibrillation type: unspecified Qualified Code(s): I48.91 - Unspecified atrial fibrillation (3) CAD (coronary artery disease) Code(s): I25.10 - ATHSCL HEART DISEASE OF [place] CORONARY ARTERY W/O ANG PCTRS (4) CHF (congestive heart failure) Code(s): I50.9 - HEART FAILURE, UNSPECIFIED (5) Obesity Code(s): E66.9 - OBESITY, UNSPECIFIED (6) SOB (shortness of breath) Code(s): R06.02 - SHORTNESS OF BREATH (7) Atrial fibrillation with rapid ventricular response Code(s): I48.91 - UNSPECIFIED ATRIAL FIBRILLATION Assessment/Plan AF WITH RVR RESOLVED VOLUME OVERLOAD IMPROVING HPL/HTN/CAD RENAL INSUFFICIENCY M. OBESITY/DM BLADDER CA S/P RESECTION/CHEMOTX O2 TO KEEP SAT GREATER THAN 90% RATE CONTROL/ANTICOAGULATION DIURETICS PRN MONITOR LYTES,RENAL FUNCTION DR KENDALL
--- NOTE | 2017-06-29 16:48 | PN ---
Progress Note, Physician Chief Complaint: AWAKE ALERT MILD DISTRESS EVENTS AND NOTES REVIEWED - Current Medication List Current Medications: Active Medications Aspirin (Ecotrin -) 81 mg PO DAILY [facility] Last Admin: 06/29/17 09:59 Dose: 81 mg Atorvastatin Calcium (Lipitor -) 40 mg PO HS [facility] Last Admin: 06/28/17 22:18 Dose: 40 mg Cholecalciferol (Vitamin D3 -) 400 unit PO DAILY [facility] Last Admin: 06/29/17 10:00 Dose: 400 unit Citalopram Hydrobromide (Celexa -) 10 mg PO DAILY [facility] Last Admin: 06/29/17 09:59 Dose: 10 mg Diltiazem HCl (Cardizem -) 30 mg PO Q6HPO [facility] Last Admin: 06/29/17 12:38 Dose: 30 mg Diltiazem HCl (Cardizem Injection -) 10 mg IVPUSH Q6H PRN PRN Reason: HR > 160 Heparin Sodium/Dextrose (Heparin Infusion -) 25,000 units in 500 mls @ 20 mls/ hr IVPB TITR ANGELITA; 1,000 UNITS/HR PRN Reason: Protocol Last Admin: 06/29/17 09:00 Dose: 1,350 units/hr, 27 mls/hr Metoprolol Tartrate (Lopressor -) 50 mg PO TID [facility] Last Admin: 06/29/17 15:03 Dose: 50 mg Pantoprazole Sodium (Protonix -) 20 mg PO DAILY [facility] Last Admin: 06/29/17 09:59 Dose: 20 mg Tamsulosin HCl (Flomax -) 0.4 mg PO DAILY@0830 [facility] Last Admin: 06/29/17 10:00 Dose: 0.4 mg Warfarin Sodium (Coumadin -) 5 mg PO DAILY@1800 [facility] Last Admin: 06/28/17 17:59 Dose: 5 mg - Objective Vital Signs: Vital Signs Temperature 98.2 F 06/29/17 13:49 Pulse Rate 96 H 06/29/17 13:49 Respiratory Rate 18 06/29/17 13:49 Blood Pressure 132/65 06/29/17 13:49 O2 Sat by Pulse Oximetry (%) 96 06/29/17 09:00 Constitutional: Yes: Mild Distress Eyes: Yes: WNL HENT: Yes: WNL Neck: Yes: WNL Cardiovascular: Yes: Pulse Irregular Respiratory: Yes: WNL Gastrointestinal: Yes: WNL Genitourinary: Yes: WNL Musculoskeletal: Yes: WNL Extremities: Yes: WNL Edema: No Peripheral Pulses WNL: Yes Integumentary: Yes: WNL Wound/Incision: Yes: Clean/Dry Neurological: Yes: WNL ...Motor Strength: WNL Psychiatric: Yes: WNL Labs: CBC, BMP 06/29/17 06:25 06/29/17 06:25 INR, PTT INR 1.32 (0.82-1.09) H 06/29/17 06:25 Problem List - Problems (1) Atrial fibrillation Code(s): I48.91 - UNSPECIFIED ATRIAL FIBRILLATION Qualifiers: Atrial fibrillation type: unspecified Qualified Code(s): I48.91 - Unspecified atrial fibrillation (2) CAD (coronary artery disease) Code(s): I25.10 - ATHSCL HEART DISEASE OF [place] CORONARY ARTERY W/O ANG PCTRS (3) CHF (congestive heart failure) Code(s): I50.9 - HEART FAILURE, UNSPECIFIED (4) Obesity Code(s): E66.9 - OBESITY, UNSPECIFIED (5) Renal insufficiency Code(s): N28.9 - DISORDER OF KIDNEY AND URETER, UNSPECIFIED (6) Atrial fibrillation with rapid ventricular response Code(s): I48.91 - UNSPECIFIED ATRIAL FIBRILLATION (7) Hyperlipidemia Code(s): E78.5 - HYPERLIPIDEMIA, UNSPECIFIED Qualifiers: Hyperlipidemia type: Pure hypercholesterolemia Assessment/Plan CARDIOLOGY EVAL CHECK TSH/FREE T4 CRI STABLE INR CHECK TELEMETRY MONITORING CONTINUED PULMONARY EVAL
[2017-06-29] MEDS ORDERED: HEPARIN NA (PORCINE) 5,000 UNITS/ML 1ML VIAL IVPUSH PRN ×2 (17:46→17:51)
[2017-06-29] MEDS ORDERED: HEPARIN - 25,000 UNIT in SODIUM CHLORIDE 495 ML IV SCH (18:00)
[2017-06-29] MEDS: WARFARIN NA 5 MG TABLET (UD) PO SCH (18:46)
[2017-06-29] MEDS: ATORVASTATIN CA 40 MG TABLET (FP) PO SCH (21:58)
--- NOTE | 2017-06-29 23:37 | EKG ---
Test Reason : Blood Pressure : / mmHG Vent. Rate : 096 BPM Atrial Rate : 091 BPM P-R Int : 000 ms QRS Dur : 084 ms QT Int : 406 ms P-R-T Axes : 000 -27 260 degrees QTc Int : 512 ms ATRIAL FIBRILLATION WITH PREMATURE VENTRICULAR OR ABERRANTLY CONDUCTED COMPLEXES ABNORMAL ECG WHEN COMPARED WITH ECG OF 28-JUN-2017 10:11, ATRIAL FIBRILLATION HAS REPLACED ATRIAL FLUTTER Confirmed by ANNITA CHAMBERS, ROBBIE ([id number]) on 06/29/2017 11:36:47 PM Referred By: JOSE JACKSON Confirmed By:ROBBIE ARIZA MD
--- NOTE | 2017-06-30 00:07 | EKG ---
Test Reason : Blood Pressure : / mmHG Vent. Rate : 105 BPM Atrial Rate : 288 BPM P-R Int : 000 ms QRS Dur : 078 ms QT Int : 376 ms P-R-T Axes : 000 -16 269 degrees QTc Int : 496 ms ATRIAL FLUTTER WITH VARIABLE A-V BLOCK LOW VOLTAGE QRS ABNORMAL ECG WHEN COMPARED WITH ECG OF 28-JUN-2017 01:14, ATRIAL FLUTTER HAS REPLACED SINUS RHYTHM Confirmed by ANNITA CHAMBERS, ROBBIE ([id number]) on 06/30/2017 12:07:17 AM Referred By: Gaviota AVILA Confirmed By:ROBBIE ARIZA MD
--- NOTE | 2017-06-30 00:26 | EKG ---
Test Reason : Blood Pressure : / mmHG Vent. Rate : 086 BPM Atrial Rate : 086 BPM P-R Int : 168 ms QRS Dur : 082 ms QT Int : 406 ms P-R-T Axes : 046 -26 263 degrees QTc Int : 485 ms NORMAL SINUS RHYTHM ABNORMAL ECG WHEN COMPARED WITH ECG OF 27-JUN-2017 16:38, SINUS RHYTHM HAS REPLACED ATRIAL FIBRILLATION Confirmed by ROBBIE ARIZA MD ([id number]) on 06/30/2017 12:26:31 AM Referred By: Confirmed By:ROBBIE ARIZA MD
--- NOTE | 2017-06-30 00:31 | EKG ---
Test Reason : Blood Pressure : / mmHG Vent. Rate : 161 BPM Atrial Rate : 340 BPM P-R Int : 000 ms QRS Dur : 078 ms QT Int : 286 ms P-R-T Axes : 000 -22 168 degrees QTc Int : 468 ms ATRIAL FIBRILLATION WITH RAPID VENTRICULAR RESPONSE NONSPECIFIC ST AND T WAVE ABNORMALITY ABNORMAL ECG WHEN COMPARED WITH ECG OF 04-MAR-2015 13:37, NO SIGNIFICANT CHANGE WAS FOUND Confirmed by ROBBIE ARIZA MD ([id number]) on 06/30/2017 12:31:27 AM Referred By: Confirmed By:ROBBIE ARIZA MD
[2017-06-30] MEDS: METOPROLOL TARTRATE 50 MG TABLET (FP) PO SCH ×3 (06:42→21:23)
[2017-06-30] MEDS: dilTIAZem HCL 30 MG TABLET (FP) PO SCH ×4 (06:42→17:54)
[2017-06-30 08:03] LABS: HEMATOCRIT 34.6 % (35.4-49); HEMOGLOBIN 11.1 GM/dL (11.7-16.9); MCH 27.3 pg (25.7-33.7); MCHC 32.1 g/dl (32.0-35.9); MEAN CELL VOLUME 85.1 fl (80-96); MEAN PLT VOLUME 10.1 fl (7.5-11.1); PLATELET COUNT 201 K/MM3 (134-434); RBC 4.06 M/mm3 (4.00-5.60); RDW 15.6 % (11.9-15.9); WHITE BLOOD COUNT 6.2 K/mm3 (4.0-10.0)
[2017-06-30 08:17] LABS: INR 1.33 (0.82-1.09)
[2017-06-30 08:20] LABS: ACTIVATED PTT 50.7 SECONDS (26.9-34.4)
--- NOTE | 2017-06-30 09:23 | PN ---
Progress Note, Physician Chief Complaint: Pt sitting up; A&Ox3; still short of breath on mild exertion; no further chest discomfort. History of Present Illness: 66y M hx of bladder ca, htn, dm, afib on coumadin, nonobstructive CAD on 2013 coronary angiogram (per pt's son), who presents with complaint of feeling chest pain/lightheadedness, sob, for the past week, had gone to dr. morales who referred the pt to cardiology. the pt presents today due to perssitent symptoms. on arrival pt noted with HR of 161 afib RVR on ekg ptw as brought to a room placed on monitor, given 5mg metoprolol x 3, bp stable in the 130s/80s. Pt was in Dr. Morales's office yesterday, and was noted by him to be in AF with RVR for the first time). INR subtherapeutic (?it had been held for a bladder procedure) - Current Medication List Current Medications: Active Medications Aspirin (Ecotrin -) 81 mg PO DAILY [facility] Last Admin: 06/29/17 09:59 Dose: 81 mg Atorvastatin Calcium (Lipitor -) 40 mg PO HS [facility] Last Admin: 06/29/17 21:58 Dose: 40 mg Cholecalciferol (Vitamin D3 -) 400 unit PO DAILY [facility] Last Admin: 06/29/17 10:00 Dose: 400 unit Citalopram Hydrobromide (Celexa -) 10 mg PO DAILY [facility] Last Admin: 06/29/17 09:59 Dose: 10 mg Diltiazem HCl (Cardizem -) 30 mg PO Q6HPO [facility] Last Admin: 06/30/17 06:42 Dose: 30 mg Diltiazem HCl (Cardizem Injection -) 10 mg IVPUSH Q6H PRN PRN Reason: HR > 160 Heparin Sodium (Porcine) (Heparin -) 1,000 unit IVPUSH PRN PRN PRN Reason: Heparin Heparin Sodium (Porcine) (Heparin -) 5,000 unit IVPUSH PRN PRN PRN Reason: Heparin Heparin Sodium/Dextrose (Heparin Infusion -) 25,000 units in 500 mls @ 20 mls/ hr IVPB TITR [facility]; 1,000 UNITS/HR PRN Reason: Protocol Last Admin: 06/29/17 16:00 Dose: 1,450 units/hr, 29 mls/hr Metoprolol Tartrate (Lopressor -) 50 mg PO TID [facility] Last Admin: 06/30/17 06:42 Dose: 50 mg Pantoprazole Sodium (Protonix -) 20 mg PO DAILY [facility] Last Admin: 06/29/17 09:59 Dose: 20 mg Tamsulosin HCl (Flomax -) 0.4 mg PO DAILY@0830 [facility] Last Admin: 06/29/17 10:00 Dose: 0.4 mg Warfarin Sodium (Coumadin -) 5 mg PO DAILY@1800 [facility] Last Admin: 06/29/17 18:46 Dose: 5 mg - Objective Vital Signs: Vital Signs Temperature 98.2 F 06/30/17 02:00 Pulse Rate 126 H 06/30/17 02:00 Respiratory Rate 20 06/30/17 02:00 Blood Pressure 94/63 06/30/17 02:00 O2 Sat by Pulse Oximetry (%) 95 06/29/17 19:51 Constitutional: Yes: Calm Eyes: Yes: WNL HENT: Yes: WNL Neck: Yes: WNL Cardiovascular: Yes: Pulse Irregular Respiratory: Yes: Diminished Gastrointestinal: Yes: Soft, Abdomen, Obese ...Rectal Exam: Yes: Deferred Genitourinary: No: Anuria Musculoskeletal: Yes: Muscle Weakness Extremities: Yes: Cool Edema: Yes Edema: LLE: Trace, RLE: Trace Peripheral Pulses WNL: Yes Integumentary: Yes: WNL Neurological: Yes: Alert, Oriented Psychiatric: Yes: Alert, Oriented Labs: CBC, BMP 06/30/17 07:12 06/29/17 06:25 INR, PTT INR 1.33 (0.82-1.09) H 06/30/17 07:12 Abnormal Lab Results 06/30/17 06/30/17 07/01/17 21:25 21:25 05:00 RBC 3.88 L Hgb 10.6 L Hct 32.6 L PTT (Actin FS) Urine Protein 1+ H D Urine Blood 1+ H Ur Leukocyte Esterase 2+ H U Random Total Protein 47 H 07/01/17 05:00 RBC Hgb Hct PTT (Actin FS) 48.4 H Urine Protein Urine Blood Ur Leukocyte Esterase U Random Total Protein Problem List - Problems (1) Obesity Assessment/Plan: The importance of following a heart-healthy diet, with portion control and exercise as aids to losing weight, was discussed. Pt says he weighed only 130 lbs at 23 yrs old. He has lost at least 10 lbs lately (though still weighs >200 lbs) through changing diet and avoiding processed and fried foods. He does little exercise; his is in poor health, and he cares for her, leaving little time for himself. Code(s): E66.9 - OBESITY, UNSPECIFIED (2) Atrial fibrillation with rapid ventricular response Assessment/Plan: On metoprolol: increased dose to 50 mg q8h Now on diltiazem 30 mg PO q6h IV heparin until warfarin --> INR 2-3. F/u telemetry. Serial HR and BP. TSH WNL. Serial TNIs: < 0.02 Serial EKG ECHO for LVEF, wall motion, chamber sizes. Code(s): I48.91 - UNSPECIFIED ATRIAL FIBRILLATION (3) Hyperlipidemia Code(s): E78.5 - HYPERLIPIDEMIA, UNSPECIFIED Qualifiers: Hyperlipidemia type: Pure hypercholesterolemia (4) Hypertension Code(s): I10 - ESSENTIAL (PRIMARY) HYPERTENSION Qualifiers: Hypertension type: essential hypertension Qualified Code(s): I10 - Essential (primary) hypertension (5) CAD (coronary artery disease) Assessment/Plan: Son reports 30-40% ?two vessel disease on 2014 angiogram. F/u records. Reported STT changes noted while in AF with RVR in office yesterday. F/u TNI serially: initial TNI is < 0.02.. TSH WNL. Stress MIBI done 12/2016: no evidence of ischemia. Given STT changes noted while in AF with RVR, and clinical picture, vic require further evaluation to r/o CAD, either repeat stress test or coronary angiogram. Code(s): I25.10 - ATHSCL HEART DISEASE OF [place] CORONARY ARTERY W/O ANG PCTRS
--- NOTE | 2017-06-30 10:20 | PN ---
Progress Note, Physician History of Present Illness: PULMONARY ALERT,FEELING BETTER,-SOB,MILD CHEST TIGHTNESS - Current Medication List Current Medications: Active Medications Aspirin (Ecotrin -) 81 mg PO DAILY [facility] Last Admin: 06/29/17 09:59 Dose: 81 mg Atorvastatin Calcium (Lipitor -) 40 mg PO HS [facility] Last Admin: 06/29/17 21:58 Dose: 40 mg Cholecalciferol (Vitamin D3 -) 400 unit PO DAILY [facility] Last Admin: 06/29/17 10:00 Dose: 400 unit Citalopram Hydrobromide (Celexa -) 10 mg PO DAILY [facility] Last Admin: 06/29/17 09:59 Dose: 10 mg Diltiazem HCl (Cardizem -) 30 mg PO Q6HPO [facility] Last Admin: 06/30/17 06:42 Dose: 30 mg Diltiazem HCl (Cardizem Injection -) 10 mg IVPUSH Q6H PRN PRN Reason: HR > 160 Heparin Sodium (Porcine) (Heparin -) 1,000 unit IVPUSH PRN PRN PRN Reason: Heparin Heparin Sodium (Porcine) (Heparin -) 5,000 unit IVPUSH PRN PRN PRN Reason: Heparin Heparin Sodium/Dextrose (Heparin Infusion -) 25,000 units in 500 mls @ 20 mls/ hr IVPB TITR [facility]; 1,000 UNITS/HR PRN Reason: Protocol Last Admin: 06/29/17 16:00 Dose: 1,450 units/hr, 29 mls/hr Metoprolol Tartrate (Lopressor -) 50 mg PO TID [facility] Last Admin: 06/30/17 06:42 Dose: 50 mg Pantoprazole Sodium (Protonix -) 20 mg PO DAILY [facility] Last Admin: 06/29/17 09:59 Dose: 20 mg Tamsulosin HCl (Flomax -) 0.4 mg PO DAILY@0830 [facility] Last Admin: 06/29/17 10:00 Dose: 0.4 mg Warfarin Sodium (Coumadin -) 5 mg PO DAILY@1800 [facility] Last Admin: 06/29/17 18:46 Dose: 5 mg - Objective Vital Signs: Vital Signs Temperature 98.2 F 06/30/17 02:00 Pulse Rate 126 H 06/30/17 02:00 Respiratory Rate 20 06/30/17 02:00 Blood Pressure 94/63 06/30/17 02:00 O2 Sat by Pulse Oximetry (%) 95 06/29/17 19:51 Constitutional: Yes: Well Nourished, Calm Eyes: Yes: WNL HENT: Yes: WNL Neck: Yes: WNL Cardiovascular: Yes: Tachycardia, Pulse Irregular, S1, S2 Respiratory: Yes: Diminished Gastrointestinal: Yes: Normal Bowel Sounds, Soft Extremities: Yes: WNL Edema: No Labs: CBC, BMP 06/30/17 07:12 06/29/17 06:25 INR, PTT INR 1.33 (0.82-1.09) H 06/30/17 07:12 Assessment/Plan Problem List - Problems (1) Renal insufficiency Code(s): N28.9 - DISORDER OF KIDNEY AND URETER, UNSPECIFIED (2) Atrial fibrillation Code(s): I48.91 - UNSPECIFIED ATRIAL FIBRILLATION Qualifiers: Atrial fibrillation type: unspecified Qualified Code(s): I48.91 - Unspecified atrial fibrillation (3) CAD (coronary artery disease) Code(s): I25.10 - ATHSCL HEART DISEASE OF [place] CORONARY ARTERY W/O ANG PCTRS (4) CHF (congestive heart failure) Code(s): I50.9 - HEART FAILURE, UNSPECIFIED (5) Obesity Code(s): E66.9 - OBESITY, UNSPECIFIED (6) SOB (shortness of breath) Code(s): R06.02 - SHORTNESS OF BREATH (7) Atrial fibrillation with rapid ventricular response Code(s): I48.91 - UNSPECIFIED ATRIAL FIBRILLATION Assessment/Plan AF WITH RVR VOLUME OVERLOAD IMPROVING HPL/HTN/CAD RENAL INSUFFICIENCY M. OBESITY/DM BLADDER CA S/P RESECTION/CHEMOTX O2 TO KEEP SAT GREATER THAN 90% RATE CONTROL PER CARDIOLOGY ANTICOAGULATION DIURETICS PRN MONITOR LYTES,RENAL FUNCTION DR KENDALL
[2017-06-30] MEDS: TAMSULOSIN HCL 0.4 MG CAP.ER.24H (FP) PO SCH (11:11)
[2017-06-30] MEDS: ASPIRIN COATED 81 MG TABLET.EC PO SCH (11:11)
[2017-06-30] MEDS: CITALOPRAM HYDROBROMIDE 10 MG TABLET (FP) PO SCH (11:12)
[2017-06-30] MEDS: PANTOPRAZOLE 20 MG TABLET (FP) PO SCH (11:12)
[2017-06-30] MEDS: CHOLECALCIFEROL (VITAMIN D3) 400 UNIT TABLET (FP) PO SCH (11:29)
--- NOTE | 2017-06-30 14:31 | CONSULT ---
Consult Consult Specialty:: Nephrology Reason for Consultation:: HEYDI - History of Present Illness Chief Complaint: chest pain History of Present Illness: Pt is a 66 year old male with pmhx of HTN, a-fib, bladder cancer with urostomy, and DM who presents to the ER with chest pain. He was found to have hypotension. He was found to have elevated creatinine and I was called to evaluate him. He denies shortness of breath at the moment. He denies fevers or chills. He denies history of CKD. He denies hematuria. He denies nsaid use. - History Source History Provided By: Patient - Past Medical History Cardio/Vascular: Yes: AFIB, HTN, Hyperlipdemia Pulmonary: Yes: Sleep Apnea (rule out) Renal/: Yes: Renal Inusuff, Cancer (bladder) Endocrine: Yes: Diabetes Mellitus - Alcohol/Substance Use Hx Alcohol Use: No History of Substance Use: reports: None - Smoking History Smoking history: Never smoked Have you smoked in the past 12 months: No Aproximately how many cigarettes per day: 0 - Social History ADL: Independent History of Recent Travel: Yes ([place]) Home Medications - Allergies Allergies/Adverse Reactions: Allergies Allergy/AdvReac Type Severity Reaction Status Date / Time No Known Allergies Allergy Verified 06/27/17 14:01 - Home Medications Home Medications: Ambulatory Orders Alfuzosin HCl [Uroxatral] 10 mg PO DAILY 03/04/15 Aspirin [Aspirin EC] 81 mg PO DAILY 03/04/15 Cholecalciferol (Vitamin D3) [Vitamin D -] 400 unit PO DAILY 03/04/15 Citalopram Hydrobromide [Celexa -] 10 mg PO DAILY 03/04/15 Simvastatin [Zocor -] 20 mg PO HS 03/04/15 Metoprolol Tartrate 50 mg PO BID #60 tablet 03/08/15 Warfarin Na [Coumadin] 3 mg PO DAILY #30 tablet 03/08/15 Family Disease History - Family Disease History Family History: Denies Review of Systems - Review of Systems Constitutional: reports: No Symptoms Eyes: reports: No Symptoms HENT: reports: No Symptoms Neck: reports: No Symptoms Cardiovascular: reports: Chest Pain, Palpitations. denies: Edema Respiratory: reports: No Symptoms Gastrointestinal: reports: No Symptoms Genitourinary: reports: No Symptoms Musculoskeletal: reports: No Symptoms Integumentary: reports: No Symptoms Neurological: reports: No Symptoms Endocrine: reports: No Symptoms Hematology/Lymphatic: reports: No Symptoms Psychiatric: reports: No Symptoms Physical Exam Vital Signs: Vital Signs Temperature 98.2 F 06/30/17 02:00 Pulse Rate 126 H 06/30/17 02:00 Respiratory Rate 20 06/30/17 02:00 Blood Pressure 94/63 06/30/17 02:00 O2 Sat by Pulse Oximetry (%) 95 06/29/17 19:51 Constitutional: Yes: Calm Eyes: Yes: Conjunctiva Clear HENT: Yes: Atraumatic Neck: Yes: Supple Cardiovascular: Yes: S1, S2 Respiratory: Yes: CTA Bilaterally Gastrointestinal: Yes: Soft, Abdomen, Obese Musculoskeletal: Yes: WNL Edema: No Neurological: Yes: Oriented Psychiatric: Yes: Oriented Labs: CBC, BMP 06/30/17 07:12 06/29/17 06:25 Laboratory Tests 06/27/17 06/28/17 06/29/17 14:20 06:00 06:25 Hgb 10.7 L Sodium Potassium Chloride Creatinine 1.5 H D 1.7 H 06/29/17 06/30/17 06:25 07:12 Hgb 11.1 L Sodium 138 Potassium 4.3 Chloride 108 H Creatinine 1.5 H Imaging - Results Chest X-ray: Report Reviewed Problem List - Problems (1) Atrial fibrillation Code(s): I48.91 - UNSPECIFIED ATRIAL FIBRILLATION Qualifiers: Atrial fibrillation type: unspecified Qualified Code(s): I48.91 - Unspecified atrial fibrillation (2) Obesity Code(s): E66.9 - OBESITY, UNSPECIFIED (3) Renal insufficiency Code(s): N28.9 - DISORDER OF KIDNEY AND URETER, UNSPECIFIED Assessment/Plan Current Medications Generic Name Dose Route Start Last Admin Trade Name Freq PRN Reason Stop Dose Admin Aspirin 81 mg 06/28/17 10:00 06/30/17 11:11 Ecotrin - PO 81 mg DAILY [facility] Administration Atorvastatin Calcium 40 mg 06/28/17 22:00 06/29/17 21:58 Lipitor - PO 40 mg HS [facility] Administration Cholecalciferol 400 unit 06/28/17 10:00 06/30/17 11:29 Vitamin D3 - PO 400 unit DAILY [facility] Administration Citalopram Hydrobromide 10 mg 06/28/17 10:00 06/30/17 11:12 Celexa - PO 10 mg DAILY [facility] Administration Diltiazem HCl 30 mg 06/28/17 00:15 06/30/17 11:12 Cardizem - PO 30 mg Q6HPO [facility] Administration Diltiazem HCl 10 mg 06/28/17 00:03 Cardizem Injection - IVPUSH Q6H PRN HR > 160 Heparin Sodium (Porcine) 1,000 unit 06/29/17 17:51 Heparin - IVPUSH PRN PRN Heparin Heparin Sodium (Porcine) 5,000 unit 06/29/17 17:46 Heparin - IVPUSH PRN PRN Heparin Heparin Sodium/Dextrose 25,000 units in 500 mls @ 20 mls/hr 06/27/17 18:30 16:00 Heparin Infusion - IVPB 1,450 units/hr TITR [facility] 29 mls/hr Protocol Administration 1,000 UNITS/HR Metoprolol Tartrate 50 mg 06/28/17 06:00 06/30/17 14:52 Lopressor - PO 50 mg TID [facility] Administration Pantoprazole Sodium 20 mg 06/28/17 10:00 06/30/17 11:12 Protonix - PO 20 mg DAILY [facility] Administration Tamsulosin HCl 0.4 mg 06/28/17 08:30 06/30/17 11:11 Flomax - PO 0.4 mg DAILY@0830 [facility] Administration Warfarin Sodium 5 mg 06/28/17 18:00 06/29/17 18:46 Coumadin - PO 5 mg DAILY@1800 [facility] Administration Impression 1. CKD 2. r/o ACD 3. a-fib 4. DM 5. HTN 6. hx bladder cancer Plan - repeat bmp in am - check renal ultrasound - send ua - check prt to forestry fire aide ration - check lytes and forestry fire aide - avoid nsaids Dr Baltazar
--- NOTE | 2017-06-30 17:39 | PN ---
Progress Note, Physician Chief Complaint: AWAKE FEELING BETTER DENIES FEVER OR SOB - Current Medication List Current Medications: Active Medications Aspirin (Ecotrin -) 81 mg PO DAILY [facility] Last Admin: 06/30/17 11:11 Dose: 81 mg Atorvastatin Calcium (Lipitor -) 40 mg PO HS [facility] Last Admin: 06/29/17 21:58 Dose: 40 mg Cholecalciferol (Vitamin D3 -) 400 unit PO DAILY [facility] Last Admin: 06/30/17 11:29 Dose: 400 unit Citalopram Hydrobromide (Celexa -) 10 mg PO DAILY [facility] Last Admin: 06/30/17 11:12 Dose: 10 mg Diltiazem HCl (Cardizem -) 30 mg PO Q6HPO [facility] Last Admin: 06/30/17 11:12 Dose: 30 mg Diltiazem HCl (Cardizem Injection -) 10 mg IVPUSH Q6H PRN PRN Reason: HR > 160 Heparin Sodium (Porcine) (Heparin -) 1,000 unit IVPUSH PRN PRN PRN Reason: Heparin Heparin Sodium (Porcine) (Heparin -) 5,000 unit IVPUSH PRN PRN PRN Reason: Heparin Heparin Sodium/Dextrose (Heparin Infusion -) 25,000 units in 500 mls @ 20 mls/ hr IVPB TITR [facility]; 1,000 UNITS/HR PRN Reason: Protocol Last Admin: 06/29/17 16:00 Dose: 1,450 units/hr, 29 mls/hr Metoprolol Tartrate (Lopressor -) 50 mg PO TID [facility] Last Admin: 06/30/17 14:52 Dose: 50 mg Pantoprazole Sodium (Protonix -) 20 mg PO DAILY [facility] Last Admin: 06/30/17 11:12 Dose: 20 mg Tamsulosin HCl (Flomax -) 0.4 mg PO DAILY@0830 [facility] Last Admin: 06/30/17 11:11 Dose: 0.4 mg Warfarin Sodium (Coumadin -) 5 mg PO DAILY@1800 [facility] Last Admin: 06/29/17 18:46 Dose: 5 mg - Objective Vital Signs: Vital Signs Temperature 97.7 F 06/30/17 14:00 Pulse Rate 96 H 06/30/17 14:00 Respiratory Rate 20 06/30/17 09:00 Blood Pressure 138/68 06/30/17 14:00 O2 Sat by Pulse Oximetry (%) 95 06/30/17 09:00 Constitutional: Yes: No Distress Eyes: Yes: WNL HENT: Yes: WNL Neck: Yes: WNL Cardiovascular: Yes: Pulse Irregular Respiratory: Yes: WNL Gastrointestinal: Yes: WNL Genitourinary: Yes: WNL Musculoskeletal: Yes: WNL, Muscle Weakness Extremities: Yes: WNL Edema: No Peripheral Pulses WNL: Yes Integumentary: Yes: WNL Wound/Incision: Yes: Clean/Dry Neurological: Yes: WNL ...Motor Strength: WNL Psychiatric: Yes: WNL Labs: CBC, BMP 06/30/17 07:12 06/29/17 06:25 INR, PTT INR 1.33 (0.82-1.09) H 06/30/17 07:12 Problem List - Problems (1) Atrial fibrillation Code(s): I48.91 - UNSPECIFIED ATRIAL FIBRILLATION Qualifiers: Atrial fibrillation type: unspecified Qualified Code(s): I48.91 - Unspecified atrial fibrillation (2) CAD (coronary artery disease) Code(s): I25.10 - ATHSCL HEART DISEASE OF [place] CORONARY ARTERY W/O ANG PCTRS (3) CHF (congestive heart failure) Code(s): I50.9 - HEART FAILURE, UNSPECIFIED (4) Obesity Code(s): E66.9 - OBESITY, UNSPECIFIED (5) Renal insufficiency Code(s): N28.9 - DISORDER OF KIDNEY AND URETER, UNSPECIFIED (6) Atrial fibrillation with rapid ventricular response Code(s): I48.91 - UNSPECIFIED ATRIAL FIBRILLATION (7) Hyperlipidemia Code(s): E78.5 - HYPERLIPIDEMIA, UNSPECIFIED Qualifiers: Hyperlipidemia type: Pure hypercholesterolemia Assessment/Plan CARDIOLOGY EVAL APPRECIATED ON IV HEPARIN AND BRIDGING TO COUMADIN CHECK TSH/FREE T4 CRI STABLE INR CHECK TELEMETRY MONITORING CONTINUED PULMONARY EVAL
[2017-06-30] MEDS: HEPARIN INFUSION - 25,000 UNITS/500 ML INFUS.BAG IVPB SCH (17:54)
[2017-06-30] MEDS: WARFARIN NA 5 MG TABLET (UD) PO SCH (17:54)
[2017-06-30] MEDS: ATORVASTATIN CA 40 MG TABLET (FP) PO SCH (21:23)
[2017-06-30 21:49] LABS: URINE CREATININE 50.2 mg/dL (20-370)
[2017-06-30 21:51] LABS: RATIO URIN PROTEIN/URIN CREAT 0.93 MG/DL
[2017-06-30 21:57] LABS: URINE APPEARANCE SL CLOUDY; URINE COLOR YELLOW
[2017-06-30 21:58] LABS: URINE BILIRUBIN NEGATIVE (<2.0 mg/dL); URINE GLUCOSE (UA) NEGATIVE (NEGATIVE); URINE KETONE NEGATIVE (NEGATIVE); URINE LEUK ESTERASE 2+ (NEGATIVE); URINE NITRITE NEGATIVE (NEGATIVE); URINE PROTEIN 1+ (NEGATIVE)
[2017-06-30 21:59] LABS: EPI CELLS RARE /HPF (FEW); URINE BACTERIA RARE /hpf (NONE SEEN); URINE MUCUS RARE
[2017-07-01] MEDS: dilTIAZem HCL 30 MG TABLET (FP) PO SCH ×4 (00:11→17:47)
[2017-07-01] MEDS: METOPROLOL TARTRATE 50 MG TABLET (FP) PO SCH ×3 (06:37→21:50)
[2017-07-01 06:40] LABS: HEMATOCRIT 32.6 % (35.4-49); HEMOGLOBIN 10.6 GM/dL (11.7-16.9); MCH 27.2 pg (25.7-33.7); MCHC 32.4 g/dl (32.0-35.9); MEAN PLT VOLUME 10.5 fl (7.5-11.1); PLATELET COUNT 195 K/MM3 (134-434); RBC 3.88 M/mm3 (4.00-5.60); RDW 15.5 % (11.9-15.9); WHITE BLOOD COUNT 5.4 K/mm3 (4.0-10.0)
[2017-07-01] MEDS: HEPARIN INFUSION - 25,000 UNITS/500 ML INFUS.BAG IVPB SCH ×2 (09:00→16:00)
[2017-07-01] MEDS: PANTOPRAZOLE 20 MG TABLET (FP) PO SCH (09:51)
[2017-07-01] MEDS: TAMSULOSIN HCL 0.4 MG CAP.ER.24H (FP) PO SCH (09:51)
[2017-07-01] MEDS: ASPIRIN COATED 81 MG TABLET.EC PO SCH (09:51)
[2017-07-01] MEDS: CITALOPRAM HYDROBROMIDE 10 MG TABLET (FP) PO SCH (09:51)
[2017-07-01] MEDS: CHOLECALCIFEROL (VITAMIN D3) 400 UNIT TABLET (FP) PO SCH (09:51)
--- NOTE | 2017-07-01 09:59 | PN ---
Progress Note, Physician History of Present Illness: PULMONARY ALERT,NAD,-CP,-SOB - Current Medication List Current Medications: Active Medications Aspirin (Ecotrin -) 81 mg PO DAILY [facility] Last Admin: 07/01/17 09:51 Dose: 81 mg Atorvastatin Calcium (Lipitor -) 40 mg PO HS [facility] Last Admin: 06/30/17 21:23 Dose: 40 mg Cholecalciferol (Vitamin D3 -) 400 unit PO DAILY [facility] Last Admin: 07/01/17 09:51 Dose: 400 unit Citalopram Hydrobromide (Celexa -) 10 mg PO DAILY [facility] Last Admin: 07/01/17 09:51 Dose: 10 mg Diltiazem HCl (Cardizem -) 30 mg PO Q6HPO [facility] Last Admin: 07/01/17 06:37 Dose: 30 mg Diltiazem HCl (Cardizem Injection -) 10 mg IVPUSH Q6H PRN PRN Reason: HR > 160 Heparin Sodium (Porcine) (Heparin -) 1,000 unit IVPUSH PRN PRN PRN Reason: Heparin Heparin Sodium (Porcine) (Heparin -) 5,000 unit IVPUSH PRN PRN PRN Reason: Heparin Heparin Sodium/Dextrose (Heparin Infusion -) 25,000 units in 500 mls @ 20 mls/ hr IVPB TITR [facility]; Protocol Last Admin: 06/30/17 17:54 Dose: 1,450 units/hr, 29 mls/hr Metoprolol Tartrate (Lopressor -) 50 mg PO TID [facility] Last Admin: 07/01/17 06:37 Dose: 50 mg Pantoprazole Sodium (Protonix -) 20 mg PO DAILY [facility] Last Admin: 07/01/17 09:51 Dose: 20 mg Tamsulosin HCl (Flomax -) 0.4 mg PO DAILY@0830 [facility] Last Admin: 07/01/17 09:51 Dose: 0.4 mg Warfarin Sodium (Coumadin -) 5 mg PO DAILY@1800 [facility] Last Admin: 06/30/17 17:54 Dose: 5 mg - Objective Vital Signs: Vital Signs Temperature 98.2 F 07/01/17 06:00 Pulse Rate 98 H 07/01/17 06:00 Respiratory Rate 20 07/01/17 06:00 Blood Pressure 102/52 07/01/17 06:00 O2 Sat by Pulse Oximetry (%) 97 06/30/17 21:00 Constitutional: Yes: Well Nourished, Calm Eyes: Yes: WNL HENT: Yes: WNL Neck: Yes: WNL Cardiovascular: Yes: Pulse Irregular, S1, S2 Respiratory: Yes: CTA Bilaterally Gastrointestinal: Yes: Normal Bowel Sounds, Soft Extremities: Yes: WNL Edema: No Labs: CBC, BMP 07/01/17 05:00 INR, PTT INR 1.33 (0.82-1.09) H 06/30/17 07:12 Assessment/Plan Problem List - Problems (1) Renal insufficiency Code(s): N28.9 - DISORDER OF KIDNEY AND URETER, UNSPECIFIED (2) Atrial fibrillation Code(s): I48.91 - UNSPECIFIED ATRIAL FIBRILLATION Qualifiers: Atrial fibrillation type: unspecified Qualified Code(s): I48.91 - Unspecified atrial fibrillation (3) CAD (coronary artery disease) Code(s): I25.10 - ATHSCL HEART DISEASE OF [place] CORONARY ARTERY W/O ANG PCTRS (4) CHF (congestive heart failure) Code(s): I50.9 - HEART FAILURE, UNSPECIFIED (5) Obesity Code(s): E66.9 - OBESITY, UNSPECIFIED (6) SOB (shortness of breath) Code(s): R06.02 - SHORTNESS OF BREATH (7) Atrial fibrillation with rapid ventricular response Code(s): I48.91 - UNSPECIFIED ATRIAL FIBRILLATION Assessment/Plan AF WITH RVR IMPROVED VOLUME OVERLOAD IMPROVING HPL/HTN/CAD RENAL INSUFFICIENCY M. OBESITY/DM BLADDER CA S/P RESECTION/CHEMOTX O2 TO KEEP SAT GREATER THAN 90% RATE CONTROL PER CARDIOLOGY ANTICOAGULATION DIURETICS PRN MONITOR LYTES,RENAL FUNCTION DR KENDALL
--- NOTE | 2017-07-01 11:03 | PN ---
Progress Note, Physician Chief Complaint: AWAKE ALERT NO DISTRESS - Current Medication List Current Medications: Active Medications Aspirin (Ecotrin -) 81 mg PO DAILY [facility] Last Admin: 07/01/17 09:51 Dose: 81 mg Atorvastatin Calcium (Lipitor -) 40 mg PO HS [facility] Last Admin: 06/30/17 21:23 Dose: 40 mg Cholecalciferol (Vitamin D3 -) 400 unit PO DAILY [facility] Last Admin: 07/01/17 09:51 Dose: 400 unit Citalopram Hydrobromide (Celexa -) 10 mg PO DAILY [facility] Last Admin: 07/01/17 09:51 Dose: 10 mg Diltiazem HCl (Cardizem -) 30 mg PO Q6HPO [facility] Last Admin: 07/01/17 06:37 Dose: 30 mg Diltiazem HCl (Cardizem Injection -) 10 mg IVPUSH Q6H PRN PRN Reason: HR > 160 Heparin Sodium (Porcine) (Heparin -) 1,000 unit IVPUSH PRN PRN PRN Reason: Heparin Last Admin: 07/01/17 09:00 Dose: 1,000 unit Heparin Sodium (Porcine) (Heparin -) 5,000 unit IVPUSH PRN PRN PRN Reason: Heparin Heparin Sodium/Dextrose (Heparin Infusion -) 25,000 units in 500 mls @ 20 mls/ hr IVPB TITR [facility]; Protocol Last Admin: 07/01/17 09:00 Dose: 1,550 units/hr, 31 mls/hr Metoprolol Tartrate (Lopressor -) 50 mg PO TID [facility] Last Admin: 07/01/17 06:37 Dose: 50 mg Pantoprazole Sodium (Protonix -) 20 mg PO DAILY [facility] Last Admin: 07/01/17 09:51 Dose: 20 mg Tamsulosin HCl (Flomax -) 0.4 mg PO DAILY@0830 [facility] Last Admin: 07/01/17 09:51 Dose: 0.4 mg Warfarin Sodium (Coumadin -) 5 mg PO DAILY@1800 [facility] Last Admin: 06/30/17 17:54 Dose: 5 mg - Objective Vital Signs: Vital Signs Temperature 98.2 F 07/01/17 06:00 Pulse Rate 98 H 07/01/17 06:00 Respiratory Rate 20 07/01/17 06:00 Blood Pressure 102/52 07/01/17 06:00 O2 Sat by Pulse Oximetry (%) 97 06/30/17 21:00 Constitutional: Yes: No Distress Eyes: Yes: WNL HENT: Yes: WNL Neck: Yes: WNL Cardiovascular: Yes: Pulse Irregular Respiratory: Yes: WNL Gastrointestinal: Yes: WNL Genitourinary: Yes: WNL Musculoskeletal: Yes: WNL Extremities: Yes: WNL Edema: No Peripheral Pulses WNL: Yes Integumentary: Yes: WNL Wound/Incision: Yes: Steri Strips Neurological: Yes: WNL ...Motor Strength: WNL Psychiatric: Yes: WNL Labs: CBC, BMP 07/01/17 05:00 06/29/17 06:25 INR, PTT INR 1.33 (0.82-1.09) H 06/30/17 07:12 Problem List - Problems (1) Atrial fibrillation Code(s): I48.91 - UNSPECIFIED ATRIAL FIBRILLATION Qualifiers: Qualified Code(s): I48.91 - Unspecified atrial fibrillation (2) CAD (coronary artery disease) Code(s): I25.10 - ATHSCL HEART DISEASE OF [place] CORONARY ARTERY W/O ANG PCTRS (3) CHF (congestive heart failure) Code(s): I50.9 - HEART FAILURE, UNSPECIFIED (4) Obesity Code(s): E66.9 - OBESITY, UNSPECIFIED (5) Renal insufficiency Code(s): N28.9 - DISORDER OF KIDNEY AND URETER, UNSPECIFIED (6) Atrial fibrillation with rapid ventricular response Code(s): I48.91 - UNSPECIFIED ATRIAL FIBRILLATION (7) Hyperlipidemia Code(s): E78.5 - HYPERLIPIDEMIA, UNSPECIFIED Assessment/Plan CARDIOLOGY EVAL APPRECIATED STRESS TEST UNDERWAY AWAIT RESULTS ON IV HEPARIN AND BRIDGING TO COUMADIN CHECK TSH/FREE T4 CRI STABLE INR CHECK TELEMETRY MONITORING CONTINUED PULMONARY EVAL
--- NOTE | 2017-07-01 11:07 | PN ---
Progress Note, Physician History of Present Illness: 66y M hx of bladder ca, htn, dm, afib on coumadin, nonobstructive CAD on 2013 coronary angiogram (per pt's son), who presents with complaint of feeling chest pain/lightheadedness, sob, for the past week, had gone to dr. morales who referred the pt to cardiology. the pt presents today due to perssitent symptoms. on arrival pt noted with HR of 161 afib RVR on ekg ptw as brought to a room placed on monitor, given 5mg metoprolol x 3, bp stable in the 130s/80s. Pt was in Dr. Morales's office yesterday, and was noted by him to be in AF with RVR for the first time). INR subtherapeutic (?it had been held for a bladder procedure) - Current Medication List Current Medications: Active Medications Aspirin (Ecotrin -) 81 mg PO DAILY [facility] Last Admin: 07/01/17 09:51 Dose: 81 mg Atorvastatin Calcium (Lipitor -) 40 mg PO HS [facility] Last Admin: 06/30/17 21:23 Dose: 40 mg Cholecalciferol (Vitamin D3 -) 400 unit PO DAILY [facility] Last Admin: 07/01/17 09:51 Dose: 400 unit Citalopram Hydrobromide (Celexa -) 10 mg PO DAILY [facility] Last Admin: 07/01/17 09:51 Dose: 10 mg Diltiazem HCl (Cardizem -) 30 mg PO Q6HPO [facility] Last Admin: 07/01/17 06:37 Dose: 30 mg Diltiazem HCl (Cardizem Injection -) 10 mg IVPUSH Q6H PRN PRN Reason: HR > 160 Heparin Sodium (Porcine) (Heparin -) 1,000 unit IVPUSH PRN PRN PRN Reason: Heparin Last Admin: 07/01/17 09:00 Dose: 1,000 unit Heparin Sodium (Porcine) (Heparin -) 5,000 unit IVPUSH PRN PRN PRN Reason: Heparin Heparin Sodium/Dextrose (Heparin Infusion -) 25,000 units in 500 mls @ 20 mls/ hr IVPB TITR [facility]; Protocol Last Admin: 07/01/17 09:00 Dose: 1,550 units/hr, 31 mls/hr Metoprolol Tartrate (Lopressor -) 50 mg PO TID [facility] Last Admin: 07/01/17 06:37 Dose: 50 mg Pantoprazole Sodium (Protonix -) 20 mg PO DAILY [facility] Last Admin: 07/01/17 09:51 Dose: 20 mg Tamsulosin HCl (Flomax -) 0.4 mg PO DAILY@0830 [facility] Last Admin: 07/01/17 09:51 Dose: 0.4 mg Warfarin Sodium (Coumadin -) 5 mg PO DAILY@1800 [facility] Last Admin: 06/30/17 17:54 Dose: 5 mg - Objective Vital Signs: Vital Signs Temperature 98.2 F 07/01/17 06:00 Pulse Rate 98 H 07/01/17 06:00 Respiratory Rate 20 07/01/17 06:00 Blood Pressure 102/52 07/01/17 06:00 O2 Sat by Pulse Oximetry (%) 97 06/30/17 21:00 Eyes: Yes: WNL, Conjunctiva Clear, EOM Intact HENT: Yes: WNL, Atraumatic, Normocephalic Neck: Yes: WNL, Supple, Trachea Midline Cardiovascular: Yes: Pulse Irregular, S1, S2 Respiratory: Yes: WNL, Regular, CTA Bilaterally Gastrointestinal: Yes: WNL, Normal Bowel Sounds Genitourinary: Yes: WNL Musculoskeletal: Yes: WNL Extremities: Yes: WNL Edema: No Integumentary: Yes: WNL Neurological: Yes: WNL, Alert, Oriented ...Motor Strength: WNL Psychiatric: Yes: WNL Labs: CBC, BMP 07/01/17 05:00 06/29/17 06:25 INR, PTT INR 1.33 (0.82-1.09) H 06/30/17 07:12 Assessment/Plan - Problems (1) Obesity Assessment/Plan: The importance of following a heart-healthy diet, with portion control and exercise as aids to losing weight, was discussed. Pt says he weighed only 130 lbs at 23 yrs old. He has lost at least 10 lbs lately (though still weighs >200 lbs) through changing diet and avoiding processed and fried foods. He does little exercise; his is in poor health, and he cares for her, leaving little time for himself. Code(s): E66.9 - OBESITY, UNSPECIFIED (2) Atrial fibrillation with rapid ventricular response Assessment/Plan: On metoprolol: increased dose to 50 mg q8h Now on diltiazem 30 mg PO q6h IV heparin d/c warfarin prior to c. cath F/u telemetry. Serial HR and BP. TSH WNL. Serial TNIs: < 0.02 Serial EKG ECHO for LVEF, wall motion, chamber sizes. Code(s): I48.91 - UNSPECIFIED ATRIAL FIBRILLATION (3) Hyperlipidemia Code(s): E78.5 - HYPERLIPIDEMIA, UNSPECIFIED Qualifiers: Hyperlipidemia type: Pure hypercholesterolemia (4) Hypertension Code(s): I10 - ESSENTIAL (PRIMARY) HYPERTENSION Qualifiers: Hypertension type: essential hypertension Qualified Code(s): I10 - Essential (primary) hypertension (5) CAD (coronary artery disease) Assessment/Plan: Son reports 30-40% ?two vessel disease on 2013 angiogram. F/u records. Reported STT changes noted while in AF with RVR in office yesterday. F/u TNI serially: initial TNI is < 0.02.. TSH WNL. Stress MIBI done 12/2016: no evidence of ischemia. Given STT changes noted while in AF with RVR, and clinical picture, vic require further evaluation to r/o CAD, coronary angiogram in am. Code(s): I25.10 - ATHSCL HEART DISEASE OF [place] CORONARY ARTERY W/O ANG PCTRS
--- NOTE | 2017-07-01 13:35 | PN ---
Progress Note, Physician History of Present Illness: Pt seen and examined at bedside. He is awake and alert. He denies chest pain. - Current Medication List Current Medications: Active Medications Aspirin (Ecotrin -) 81 mg PO DAILY [facility] Last Admin: 07/01/17 09:51 Dose: 81 mg Atorvastatin Calcium (Lipitor -) 40 mg PO HS [facility] Last Admin: 06/30/17 21:23 Dose: 40 mg Cholecalciferol (Vitamin D3 -) 400 unit PO DAILY [facility] Last Admin: 07/01/17 09:51 Dose: 400 unit Citalopram Hydrobromide (Celexa -) 10 mg PO DAILY [facility] Last Admin: 07/01/17 09:51 Dose: 10 mg Diltiazem HCl (Cardizem -) 30 mg PO Q6HPO [facility] Last Admin: 07/01/17 12:34 Dose: 30 mg Diltiazem HCl (Cardizem Injection -) 10 mg IVPUSH Q6H PRN PRN Reason: HR > 160 Heparin Sodium (Porcine) (Heparin -) 1,000 unit IVPUSH PRN PRN PRN Reason: Heparin Last Admin: 07/01/17 09:00 Dose: 1,000 unit Heparin Sodium (Porcine) (Heparin -) 5,000 unit IVPUSH PRN PRN PRN Reason: Heparin Heparin Sodium/Dextrose (Heparin Infusion -) 25,000 units in 500 mls @ 20 mls/ hr IVPB TITR [facility]; Protocol Last Admin: 07/01/17 09:00 Dose: 1,550 units/hr, 31 mls/hr Metoprolol Tartrate (Lopressor -) 50 mg PO TID [facility] Last Admin: 07/01/17 06:37 Dose: 50 mg Pantoprazole Sodium (Protonix -) 20 mg PO DAILY [facility] Last Admin: 07/01/17 09:51 Dose: 20 mg Tamsulosin HCl (Flomax -) 0.4 mg PO DAILY@0830 [facility] Last Admin: 07/01/17 09:51 Dose: 0.4 mg - Objective Vital Signs: Vital Signs Temperature 97.7 F 07/01/17 10:00 Pulse Rate 88 07/01/17 10:00 Respiratory Rate 18 07/01/17 10:00 Blood Pressure 114/79 07/01/17 10:00 O2 Sat by Pulse Oximetry (%) 97 07/01/17 09:00 Constitutional: Yes: Calm Eyes: Yes: Conjunctiva Clear HENT: Yes: Atraumatic Neck: Yes: Supple Cardiovascular: Yes: S1, S2 Respiratory: Yes: CTA Bilaterally Gastrointestinal: Yes: Soft, Other (ileal conduit) Genitourinary: Yes: Other (ileal conduit) Musculoskeletal: Yes: WNL Edema: No Neurological: Yes: Oriented Psychiatric: Yes: Oriented Labs: CBC, BMP 07/01/17 05:00 06/29/17 06:25 INR, PTT INR 1.33 (0.82-1.09) H 06/30/17 07:12 Problem List - Problems (1) Atrial fibrillation Code(s): I48.91 - UNSPECIFIED ATRIAL FIBRILLATION Qualifiers: Atrial fibrillation type: unspecified Qualified Code(s): I48.91 - Unspecified atrial fibrillation (2) Obesity Code(s): E66.9 - OBESITY, UNSPECIFIED (3) Renal insufficiency Code(s): N28.9 - DISORDER OF KIDNEY AND URETER, UNSPECIFIED Assessment/Plan Current Medications Generic Name Dose Route Start Last Admin Trade Name Freq PRN Reason Stop Dose Admin Aspirin 81 mg 06/28/17 10:00 07/01/17 09:51 Ecotrin - PO 81 mg DAILY [facility] Administration Atorvastatin Calcium 40 mg 06/28/17 22:00 06/30/17 21:23 Lipitor - PO 40 mg HS [facility] Administration Cholecalciferol 400 unit 06/28/17 10:00 07/01/17 09:51 Vitamin D3 - PO 400 unit DAILY [facility] Administration Citalopram Hydrobromide 10 mg 06/28/17 10:00 07/01/17 09:51 Celexa - PO 10 mg DAILY [facility] Administration Diltiazem HCl 30 mg 06/28/17 00:15 07/01/17 12:34 Cardizem - PO 30 mg Q6HPO [facility] Administration Diltiazem HCl 10 mg 06/28/17 00:03 Cardizem Injection - IVPUSH Q6H PRN HR > 160 Heparin Sodium (Porcine) 1,000 unit 06/29/17 17:51 07/01/17 09:00 Heparin - IVPUSH 1,000 unit PRN PRN Administration Heparin Heparin Sodium (Porcine) 5,000 unit 06/29/17 17:46 Heparin - IVPUSH PRN PRN Heparin Heparin Sodium/Dextrose 25,000 units in 500 mls @ 20 mls/hr 06/27/17 18:30 09:00 Heparin Infusion - IVPB 1,550 units/hr TITR [facility] 31 mls/hr Administration Protocol 1,000 UNITS/HR Metoprolol Tartrate 50 mg 06/28/17 06:00 07/01/17 06:37 Lopressor - PO 50 mg TID [facility] Administration Pantoprazole Sodium 20 mg 06/28/17 10:00 07/01/17 09:51 Protonix - PO 20 mg DAILY [facility] Administration Tamsulosin HCl 0.4 mg 06/28/17 08:30 07/01/17 09:51 Flomax - PO 0.4 mg DAILY@0830 [facility] Administration Impression 1. CKD 2. r/o ACD 3. a-fib 4. DM 5. HTN 6. hx bladder cancer Plan - check bmp to evaluate renal function - renal ultrasound neg for hydro - cardio follow up for workup - follow urine studies - will need outpt follow up as well - avoid nsaids Dr Baltazar
[2017-07-01] MEDS: ATORVASTATIN CA 40 MG TABLET (FP) PO SCH (21:50)
[2017-07-02] MEDS: dilTIAZem HCL 30 MG TABLET (FP) PO SCH ×4 (00:43→17:42)
[2017-07-02] MEDS: METOPROLOL TARTRATE 50 MG TABLET (FP) PO SCH ×2 (05:50→14:49)
[2017-07-02 06:28] LABS: HEMATOCRIT 34.8 % (35.4-49); HEMOGLOBIN 11.1 GM/dL (11.7-16.9); MCH 26.9 pg (25.7-33.7); MEAN CELL VOLUME 84.1 fl (80-96); PLATELET COUNT 187 K/MM3 (134-434); RBC 4.14 M/mm3 (4.00-5.60); RDW 15.4 % (11.9-15.9); WHITE BLOOD COUNT 6.1 K/mm3 (4.0-10.0)
[2017-07-02 06:45] LABS: INR 1.69 (0.82-1.09); PROTHROMBIN TIME (PATIENT) 19.1 SEC (9.7-13.0)
[2017-07-02 07:35] LABS: ANION GAP 8 (8-16); BLOOD UREA NITROGEN 30 mg/dL (7-18); CALCIUM 8.4 mg/dL (8.5-10.1); CHLORIDE 107 mmol/L (98-107); CO2 24 mmol/L (21-32); CREATININE 1.4 mg/dL (0.7-1.3); GLUCOSE,RANDOM 195 mg/dL (74-106); SODIUM 139 mmol/L (136-145)
[2017-07-02 07:41] LABS: POTASSIUM 4.8 mmol/L (3.5-5.1)
[2017-07-02] MEDS: TAMSULOSIN HCL 0.4 MG CAP.ER.24H (FP) PO SCH (09:15)
[2017-07-02] MEDS: CITALOPRAM HYDROBROMIDE 10 MG TABLET (FP) PO SCH (09:15)
[2017-07-02] MEDS: CHOLECALCIFEROL (VITAMIN D3) 400 UNIT TABLET (FP) PO SCH (09:15)
[2017-07-02] MEDS: ASPIRIN COATED 81 MG TABLET.EC PO SCH (09:15)
[2017-07-02] MEDS: PANTOPRAZOLE 20 MG TABLET (FP) PO SCH (09:15)
--- NOTE | 2017-07-02 11:54 | PN ---
Progress Note, Physician Chief Complaint: Pt is A&Ox3; lying in bed; no chest pain or dyspnea; intermittent palpitations. History of Present Illness: 66y M hx of bladder ca, htn, dm, afib on coumadin, nonobstructive CAD on 2013 coronary angiogram (per pt's son), who presents with complaint of feeling chest pain/lightheadedness, sob, for the past week, had gone to dr. morales who referred the pt to cardiology. the pt presents today due to perssitent symptoms. on arrival pt noted with HR of 161 afib RVR on ekg ptw as brought to a room placed on monitor, given 5mg metoprolol x 3, bp stable in the 130s/80s. Pt was in Dr. Morales's office yesterday, and was noted by him to be in AF with RVR for the first time). INR subtherapeutic (?it had been held for a bladder procedure) - Current Medication List Current Medications: Active Medications Aspirin (Ecotrin -) 81 mg PO DAILY [facility] Last Admin: 07/02/17 09:15 Dose: 81 mg Atorvastatin Calcium (Lipitor -) 40 mg PO HS [facility] Last Admin: 07/01/17 21:50 Dose: 40 mg Cholecalciferol (Vitamin D3 -) 400 unit PO DAILY [facility] Last Admin: 07/02/17 09:15 Dose: 400 unit Citalopram Hydrobromide (Celexa -) 10 mg PO DAILY [facility] Last Admin: 07/02/17 09:15 Dose: 10 mg Diltiazem HCl (Cardizem -) 30 mg PO Q6HPO [facility] Last Admin: 07/02/17 05:50 Dose: 30 mg Diltiazem HCl (Cardizem Injection -) 10 mg IVPUSH Q6H PRN PRN Reason: HR > 160 Heparin Sodium (Porcine) (Heparin -) 1,000 unit IVPUSH PRN PRN PRN Reason: Heparin Last Admin: 07/01/17 09:00 Dose: 1,000 unit Heparin Sodium (Porcine) (Heparin -) 5,000 unit IVPUSH PRN PRN PRN Reason: Heparin Heparin Sodium/Dextrose (Heparin Infusion -) 25,000 units in 500 mls @ 20 mls/ hr IVPB TITR [facility]; Protocol Last Admin: 07/01/17 16:00 Dose: 1,400 units/hr, 28 mls/hr Metoprolol Tartrate (Lopressor -) 50 mg PO TID [facility] Last Admin: 07/02/17 05:50 Dose: 50 mg Pantoprazole Sodium (Protonix -) 20 mg PO DAILY [facility] Last Admin: 07/02/17 09:15 Dose: 20 mg Tamsulosin HCl (Flomax -) 0.4 mg PO DAILY@0830 [facility] Last Admin: 07/02/17 09:15 Dose: 0.4 mg - Objective Vital Signs: Vital Signs Temperature 98.2 F 07/02/17 05:51 Pulse Rate 96 H 07/02/17 05:51 Respiratory Rate 20 07/02/17 05:51 Blood Pressure 124/86 07/02/17 05:51 O2 Sat by Pulse Oximetry (%) 98 07/01/17 21:00 Constitutional: Yes: No Distress, Obese Eyes: Yes: WNL HENT: Yes: WNL Neck: Yes: WNL Cardiovascular: Yes: Pulse Irregular Labs: CBC, BMP 07/02/17 06:10 07/02/17 06:10 INR, PTT INR 1.69 (0.82-1.09) H 07/02/17 06:10 Problem List - Problems (1) Obesity Assessment/Plan: The importance of following a heart-healthy diet, with portion control and exercise as aids to losing weight, was discussed. Pt says he weighed only 130 lbs at 23 yrs old. He has lost at least 10 lbs lately (though still weighs >200 lbs) through changing diet and avoiding processed and fried foods. He does little exercise; his is in poor health, and he cares for her, leaving little time for himself. Code(s): E66.9 - OBESITY, UNSPECIFIED (2) Atrial fibrillation with rapid ventricular response Assessment/Plan: On metoprolol: increased dose to 50 mg q8h Now on diltiazem 30 mg PO q6h warfarin held pending corfonary angiogram. F/u telemetry. Serial HR and BP. TSH WNL. Serial TNIs: < 0.02 Serial EKG ECHO for LVEF, wall motion, chamber sizes. (3) Hyperlipidemia Code(s): E78.5 - HYPERLIPIDEMIA, UNSPECIFIED Qualifiers: Hyperlipidemia type: Pure hypercholesterolemia (4) Hypertension Code(s): I10 - ESSENTIAL (PRIMARY) HYPERTENSION Qualifiers: Hypertension type: essential hypertension Qualified Code(s): I10 - Essential (primary) hypertension (5) CAD (coronary artery disease) Assessment/Plan: Son reports 30-40% ?two vessel disease on 2013 angiogram. F/u records. Reported STT changes noted while in AF with RVR in office yesterday; anterolateral STT changes suspicious for ischemia noted during this admission, even when HR was < 100 bpm. TNI < 0.02 x 3 TSH WNL. Stress MIBI done 12/2016: no evidence of ischemia. Given STT changes noted while in AF with RVR, and clinical picture that includes chest tightness, pt will be transferred to [facility] for coronary angiogram. Code(s): I25.10 - ATHSCL HEART DISEASE OF [place] CORONARY ARTERY W/O ANG PCTRS (6) Renal dysfunction Assessment/Plan: BUN/Cr 30/1.4; will give IV hydrtation; pt for coronary angiogram. Code(s): N28.9 - DISORDER OF KIDNEY AND URETER, UNSPECIFIED
--- NOTE | 2017-07-02 12:16 | PN ---
Progress Note (short form) - Note Progress Note: PULMONARY Still some occasional chest discomfort, shortness of breath. For cardiac cath today. Last Vital Signs Temp Pulse Resp BP Pulse Ox 98.2 F 96 H 20 124/86 98 07/02/17 05:51 07/02/17 05:51 07/02/17 05:51 07/02/17 05:51 07/01/17 21:00 Gen: NAD in chair Heart: RRR Lung: decreased breath sounds at the bases Abd: soft, nontender Ext: no edema CBC, BMP 07/02/17 06:10 07/02/17 06:10 Active Medications Aspirin (Ecotrin -) 81 mg PO DAILY [facility] Last Admin: 07/02/17 09:15 Dose: 81 mg Atorvastatin Calcium (Lipitor -) 40 mg PO HS [facility] Last Admin: 07/01/17 21:50 Dose: 40 mg Cholecalciferol (Vitamin D3 -) 400 unit PO DAILY [facility] Last Admin: 07/02/17 09:15 Dose: 400 unit Citalopram Hydrobromide (Celexa -) 10 mg PO DAILY [facility] Last Admin: 07/02/17 09:15 Dose: 10 mg Diltiazem HCl (Cardizem -) 30 mg PO Q6HPO [facility] Last Admin: 07/02/17 05:50 Dose: 30 mg Diltiazem HCl (Cardizem Injection -) 10 mg IVPUSH Q6H PRN PRN Reason: HR > 160 Heparin Sodium (Porcine) (Heparin -) 1,000 unit IVPUSH PRN PRN PRN Reason: Heparin Last Admin: 07/01/17 09:00 Dose: 1,000 unit Heparin Sodium (Porcine) (Heparin -) 5,000 unit IVPUSH PRN PRN PRN Reason: Heparin Heparin Sodium/Dextrose (Heparin Infusion -) 25,000 units in 500 mls @ 20 mls/ hr IVPB TITR [facility]; Protocol Last Admin: 07/01/17 16:00 Dose: 1,400 units/hr, 28 mls/hr Dextrose/Sodium Chloride (D5-1/2ns -) 1,000 mls @ 83 mls/hr IV ASDIR [facility] Metoprolol Tartrate (Lopressor -) 50 mg PO TID [facility] Last Admin: 07/02/17 05:50 Dose: 50 mg Pantoprazole Sodium (Protonix -) 20 mg PO DAILY [facility] Last Admin: 07/02/17 09:15 Dose: 20 mg Tamsulosin HCl (Flomax -) 0.4 mg PO DAILY@0830 [facility] Last Admin: 07/02/17 09:15 Dose: 0.4 mg A/P Atrial Fibrillation with RVR Acute Diastolic Heart Failure CAD HTN Hyperlipidemia h/o Bladder Ca - rate controlled - continue anticoagulation - lasix as needed - O2 to keep SpO2 >90% - for cardiac catheterization
--- NOTE | 2017-07-02 12:26 | DS ---
Physical Examination Vital Signs: Vital Signs Temperature 98.2 F 07/02/17 05:51 Pulse Rate 96 H 07/02/17 05:51 Respiratory Rate 20 07/02/17 05:51 Blood Pressure 124/86 07/02/17 05:51 O2 Sat by Pulse Oximetry (%) 98 07/01/17 21:00 Constitutional: Yes: Mild Distress Eyes: Yes: WNL HENT: Yes: WNL Neck: Yes: WNL Cardiovascular: Yes: Pulse Irregular Respiratory: Yes: WNL Gastrointestinal: Yes: WNL Renal/: Yes: WNL Musculoskeletal: Yes: WNL Extremities: Yes: WNL Edema: No Peripheral Pulses WNL: Yes Integumentary: Yes: WNL Wound/Incision: Yes: Clean/Dry Neurological: Yes: WNL ...Motor Strength: WNL Psychiatric: Yes: WNL Labs: CBC, BMP 07/02/17 06:10 07/02/17 06:10 Discharge Summary Reason For Visit: MILD RENAL INSUFFIENCY,ATRIAL FIBRILLATION WITH Current Active Problems Atrial fibrillation (Acute) CAD (coronary artery disease) (Acute) CHF (congestive heart failure) (Acute) Obesity (Acute) Renal dysfunction (Acute) Renal insufficiency (Acute) SOB (shortness of breath) (Acute) Supratherapeutic INR (Acute) Procedures: Principal: stress test Hospital Course: admitted chest pain and transferring to [place] cardiac cath, workup here on telemetry iv heparin and coumadin therapy, arrythmia controlled on meds Condition: Stable - Instructions Diet, Activity, Other Instructions: low salt/ada low fat see your pmd on after discharge Referrals: Parminder Yang MD [Primary Care Provider] - Disposition: TRANSFER ACUTE CARE/OTHER HOSP - Home Medications Comprehensive Discharge Medication List: Ambulatory Orders Alfuzosin HCl [Uroxatral] 10 mg PO DAILY 03/04/15 Aspirin [Aspirin EC] 81 mg PO DAILY 03/04/15 Cholecalciferol (Vitamin D3) [Vitamin D -] 400 unit PO DAILY 03/04/15 Citalopram Hydrobromide [Celexa -] 10 mg PO DAILY 03/04/15 Simvastatin [Zocor -] 20 mg PO HS 03/04/15 Metoprolol Tartrate 50 mg PO BID #60 tablet 03/08/15 Warfarin Na [Coumadin] 3 mg PO DAILY #30 tablet 03/08/15
[2017-07-02] MEDS ORDERED: DEXTROSE 5%-0.45% SALINE 1,000 ML IV SCH (12:30)
--- NOTE | 2017-07-02 14:20 | PN ---
Progress Note, Physician History of Present Illness: Pt seen and examined at bedside. He is awake and alert. He denies shortness of breath. - Current Medication List Current Medications: Active Medications Aspirin (Ecotrin -) 81 mg PO DAILY [facility] Last Admin: 07/02/17 09:15 Dose: 81 mg Atorvastatin Calcium (Lipitor -) 40 mg PO HS [facility] Last Admin: 07/01/17 21:50 Dose: 40 mg Cholecalciferol (Vitamin D3 -) 400 unit PO DAILY [facility] Last Admin: 07/02/17 09:15 Dose: 400 unit Citalopram Hydrobromide (Celexa -) 10 mg PO DAILY [facility] Last Admin: 07/02/17 09:15 Dose: 10 mg Diltiazem HCl (Cardizem -) 30 mg PO Q6HPO [facility] Last Admin: 07/02/17 13:04 Dose: 30 mg Diltiazem HCl (Cardizem Injection -) 10 mg IVPUSH Q6H PRN PRN Reason: HR > 160 Heparin Sodium (Porcine) (Heparin -) 1,000 unit IVPUSH PRN PRN PRN Reason: Heparin Last Admin: 07/01/17 09:00 Dose: 1,000 unit Heparin Sodium (Porcine) (Heparin -) 5,000 unit IVPUSH PRN PRN PRN Reason: Heparin Heparin Sodium/Dextrose (Heparin Infusion -) 25,000 units in 500 mls @ 20 mls/ hr IVPB TITR [facility]; Protocol Last Admin: 07/01/17 16:00 Dose: 1,400 units/hr, 28 mls/hr Dextrose/Sodium Chloride (D5-1/2ns -) 1,000 mls @ 83 mls/hr IV ASDIR [facility] Last Admin: 07/02/17 13:04 Dose: 83 mls/hr Metoprolol Tartrate (Lopressor -) 50 mg PO TID [facility] Last Admin: 07/02/17 05:50 Dose: 50 mg Pantoprazole Sodium (Protonix -) 20 mg PO DAILY [facility] Last Admin: 07/02/17 09:15 Dose: 20 mg Tamsulosin HCl (Flomax -) 0.4 mg PO DAILY@0830 [facility] Last Admin: 07/02/17 09:15 Dose: 0.4 mg - Objective Vital Signs: Vital Signs Temperature 98.2 F 07/02/17 05:51 Pulse Rate 96 H 07/02/17 05:51 Respiratory Rate 20 07/02/17 09:00 Blood Pressure 124/86 07/02/17 05:51 O2 Sat by Pulse Oximetry (%) 98 07/02/17 09:00 Constitutional: Yes: Calm Eyes: Yes: Conjunctiva Clear HENT: Yes: Atraumatic Cardiovascular: Yes: S1, S2 Respiratory: Yes: CTA Bilaterally Gastrointestinal: Yes: Normal Bowel Sounds, Soft Genitourinary: Yes: Other (conduit) Musculoskeletal: Yes: WNL Edema: No Neurological: Yes: Oriented Psychiatric: Yes: Oriented Labs: CBC, BMP 07/02/17 06:10 07/02/17 06:10 INR, PTT INR 1.69 (0.82-1.09) H 07/02/17 06:10 Problem List - Problems (1) Atrial fibrillation Code(s): I48.91 - UNSPECIFIED ATRIAL FIBRILLATION Qualifiers: Atrial fibrillation type: unspecified Qualified Code(s): I48.91 - Unspecified atrial fibrillation (2) Obesity Code(s): E66.9 - OBESITY, UNSPECIFIED (3) Renal insufficiency Code(s): N28.9 - DISORDER OF KIDNEY AND URETER, UNSPECIFIED Assessment/Plan Current Medications Generic Name Dose Route Start Last Admin Trade Name Freq PRN Reason Stop Dose Admin Aspirin 81 mg 06/28/17 10:00 07/02/17 09:15 Ecotrin - PO 81 mg DAILY [facility] Administration Atorvastatin Calcium 40 mg 06/28/17 22:00 07/01/17 21:50 Lipitor - PO 40 mg HS [facility] Administration Cholecalciferol 400 unit 06/28/17 10:00 07/02/17 09:15 Vitamin D3 - PO 400 unit DAILY [facility] Administration Citalopram Hydrobromide 10 mg 06/28/17 10:00 07/02/17 09:15 Celexa - PO 10 mg DAILY [facility] Administration Diltiazem HCl 30 mg 06/28/17 00:15 07/02/17 13:04 Cardizem - PO 30 mg Q6HPO [facility] Administration Diltiazem HCl 10 mg 06/28/17 00:03 Cardizem Injection - IVPUSH Q6H PRN HR > 160 Heparin Sodium (Porcine) 1,000 unit 06/29/17 17:51 07/01/17 09:00 Heparin - IVPUSH 1,000 unit PRN PRN Administration Heparin Heparin Sodium (Porcine) 5,000 unit 06/29/17 17:46 Heparin - IVPUSH PRN PRN Heparin Heparin Sodium/Dextrose 25,000 units in 500 mls @ 20 mls/hr 06/27/17 18:30 16:00 Heparin Infusion - IVPB 1,400 units/hr TITR [facility] 28 mls/hr Administration Protocol 1,000 UNITS/HR Dextrose/Sodium Chloride 1,000 mls @ 83 mls/hr 07/02/17 12:30 07/02/17 13:04 D5-1/2ns - IV 83 mls/hr ASDIR [facility] Administration Metoprolol Tartrate 50 mg 06/28/17 06:00 07/02/17 05:50 Lopressor - PO 50 mg TID [facility] Administration Pantoprazole Sodium 20 mg 06/28/17 10:00 07/02/17 09:15 Protonix - PO 20 mg DAILY [facility] Administration Tamsulosin HCl 0.4 mg 06/28/17 08:30 07/02/17 09:15 Flomax - PO 0.4 mg DAILY@0830 [facility] Administration Impression 1. CKD 2. r/o ACD 3. a-fib 4. DM 5. HTN 6. hx bladder cancer Plan - cont to monitor renal function - repeat labs in am - pt will need ckd workup, this was explains to patient - cardio follow up - avoid nsaids Dr Baltazar
[2017-07-02 17:33] VITALS: BP 113/62; PULSE 96; TEMP 98.3
[2017-07-02 21:04] LABS: INR 1.56 (0.82-1.09); PROTHROMBIN TIME (PATIENT) 17.6 SEC (9.7-13.0)
== END 2017-07-02 18:31 | disposition short-term general hospital (02) | DRG 308 ==
LOC: JER 13:53 → JERBED 16:49 → J4W 21:41
PROVIDERS: ADMIT Family Medicine; ATTEND Family Medicine
DX: I48.91 Unspecified atrial fibrillation (principal); I50.31 Acute diastolic (congestive) heart failure; I25.10 Atherosclerotic heart disease of native coronary artery without angina pectoris; R79.1 Abnormal coagulation profile; E66.9 Obesity, unspecified; Z68.36 Body mass index [BMI] 36.0-36.9, adult; E78.5 Hyperlipidemia, unspecified; N28.9 Disorder of kidney and ureter, unspecified; Z85.51 Personal history of malignant neoplasm of bladder
CPT/HCPCS: 36415; 36600; 71045-TC-FY; 76775-TC; 76856-TC; 80048; 80053; 80061; 81003; 81015; 82436; 82550; 82570; 82803; 82962; 83036; 83721; 83735; 83880; 84133; 84156; 84300; 84439; 84443; 84481; 84484; 85025; 85027; 85379; 85610; 85730; 93005; 93010; 93306-TC; 99285-25; J1644

== ENCOUNTER 2017-08-25 10:06 | Inpatient (IN) | payer OTHER ==
--- NOTE | 2017-08-25 10:25 | PDOC ---
History of Present Illness - General Chief Complaint: Pain Stated Complaint: BLOOD PRESSURE PROBLEM, WEAKNESS History Source: Patient, Care Provider Exam Limitations: No Limitations - History of Present Illness Initial Comments: 08/25/17 10:24 66 year old French speaking male with history of hypertension, atrial fibrillation on Coumadin, (some ST changes last visit 06/28, was transferred to [facility] for coronary angio) diabetes and bladder CA s/p chemo and resection with urostomy in place who presents to the ED with bilateral sided flank pain for the past 3 weeks, increasing in intensity. Urologist Dr. Berrios, had appointment today but canceled to to intractable pain and difficulty ambulating. Also complains of chest pain from the "abdominal pressure". Denies fever, palpitations, shortness of breath, hematuria in the bag or weakness. PCP: Carmen Past History - Past Medical History Allergies/Adverse Reactions: Allergies Allergy/AdvReac Type Severity Reaction Status Date / Time No Known Allergies Allergy Verified 08/25/17 10:07 Home Medications: Ambulatory Orders Aspirin [Aspirin EC] 81 mg PO DAILY 08/25/17 Citalopram Hydrobromide [Citalopram HBr] 10 mg PO DAILY 08/25/17 Clopidogrel Bisulfate [Plavix] 75 mg PO DAILY 08/25/17 Ergocalciferol (Vitamin D2) [Drisdol] 1.25 mg PO WEEKLY 08/25/17 Furosemide [Lasix] 20 mg PO DAILY 08/25/17 Insulin Aspart [Novolog] 2 unit SQ ASDIR PRN 08/25/17 Insulin Glargine,Hum.rec.anlog [Basaglar Kwikpen U-100] 60 unit SQ DAILY Linagliptin [Tradjenta] 5 mg PO DAILY 08/25/17 Metoprolol Tartrate [Lopressor -] 50 mg PO BID 08/25/17 Oxycodone HCl/Acetaminophen [Endocet 5-325 Tablet] 1 each PO Q6H PRN 08/25/17 Pantoprazole Sodium [Protonix] 40 mg PO DAILY 08/25/17 Warfarin Na [Coumadin] 2 mg PO DAILY 08/25/17 Cancer: Yes (Bladder) COPD: No Diabetes: Yes HTN: Yes Hypercholesterolemia: Yes - Surgical History Abdominal Surgery: Yes (rectal, and urostomy) Neurologic Surgery: Yes - Immunization History Immunization Up to Date: No - Suicide/Smoking/Psychosocial Hx Smoking Status: No Smoking History: Never smoked Have you smoked in the past 12 months: No Number of Cigarettes Smoked Daily: 0 Information on smoking cessation initiated: No Hx Alcohol Use: No Drug/Substance Use Hx: No Substance Use Type: None Hx Substance Use Treatment: No Review of Systems - Review of Systems Able to Perform ROS?: Yes Is the patient limited Serbian proficient: Yes Constitutional: No: Symptoms Reported HEENTM: No: Symptoms Reported Respiratory: No: Symptoms reported Cardiac (ROS): No: Symptoms Reported ABD/GI: Yes: See HPI : Yes: See HPI Musculoskeletal: No: Symptoms Reported Integumentary: No: Symptoms Reported All Other Systems: Reviewed and Negative *Physical Exam - Vital Signs Last Vital Signs Temp Pulse Resp BP Pulse Ox 98.3 F 77 18 130/77 100 08/25/17 10:08 08/25/17 10:08 08/25/17 10:08 08/25/17 10:08 08/25/17 10:08 - Physical Exam General Appearance: Yes: Appropriately Dressed, Obese HEENT: positive: EOMI, CANDELARIA, Normal ENT Inspection Respiratory/Chest: positive: Lungs Clear, Normal Breath Sounds. negative: Chest Tender, Respiratory Distress Cardiovascular: positive: S1, S2, Tachycardia Gastrointestinal/Abdominal: positive: Normal Bowel Sounds, Protuberent, Other ( urostomy bad in place over lower right quadrant with minimal urine ) Musculoskeletal: positive: CVA Tenderness (bilaterally) Integumentary: positive: Normal Color, Dry, Warm Neurologic: positive: Fully Oriented, Alert, Normal Mood/Affect, Normal Response ED Treatment Course - LABORATORY CBC & Chemistry Diagram: 08/25/17 11:28 08/25/17 11:28 Medical Decision Making - Medical Decision Making 08/25/17 11:13 66m with pmh of atrial fibrillation on Coumadin,plavix s/p coronary angio diabetes and bladder CA s/p urostomy presents to the ED with bilateral sided flank pain. Will check basic labs, UA, cultures r/o pyelo, vs HEYDI vs bleed 08/25/17 11:[address] scan 08/25/17 12:11 Rapid afib on ekg: Atrial fibrillation with rapid ventricular response. St&Twave abdn. consider lateral ischemia. Rate controlled with cardizem 08/25/17 18:44 CT ABD: 1. Multiple, bilateral pulmonary masses strongly suspicious for metastatic disease. 2. A few small hepatic masses, also suspicious for metastases. 3. S/P cystectomy with right lower quadrant ileal conduit. 4. Mild right-sided hydronephrosis. 5. Moderate retroperitoneal lymphadenopathy, right greater than left. Clinical correlation and follow-up recommended. Please see above discussion.. 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
--- NOTE | 2017-08-25 10:51 | PDOC ---
Attending Attestation - HPI HPI: 08/25/17 11:08 The patient is a 66 year old [place]ib[place]ian speaking male accompanied with his aide, with a significant past medical history of bladder cancer s/p chemo and urostomy in place, atrial fibrillation on Warfarin, hypertension, diabetes, and hyperlipidemia, who presents to the emergency department for evaluation of bilateral lower back pain. The patient reports a 3 week history of bilateral lower back pain. He describes the pain as constant, radiating around the abdomen. As per aide at bedside, she states the pain has been worsening over the last 3 weeks and has become unbearable prompting them to visit our facility for further evaluation. Patient reports associated an associated symptom of nausea. The patient was given an echo on 08/13/2017 with noted bilateral cysts and no hydronephrosis. The patient denies chest pain, shortness of breath, headache, and dizziness. Denies fever, chills, vomiting, diarrhea, and constipation. Denies dysuria, urinary urgency/frequency, and hematuria. Allergies: NKDA Social History: No reported alcohol, cigarette, or drug use. Surgical History: Rectal and urostomy PCP: Dr. Iris Morales ([phone]) Jet Blade Polisher: Dr. Tejada ([facility]) Aide: Bety Arita [phone] - Physicial Exam PE: Vitals: Triage Vital signs reviewed General Appearance: no acute distress, well nourished well developed, Head: Atraumatic, normocephalic Eyes: Pupils equal reactive round, extraocular movement intact Neck: Supple Chest Wall: Nontender Cardiac: (+)Tachycardic, no murmurs, no rubs, no gallops, Lungs: Clear to auscultation bilateral, good air movement bilaterally, Abdomen: Soft, nondistended, nontender to palpation Back: (+)Reproducible bilateral lower back pain. Extremities: Full range of motion to all extremities, no cyanosis, clubbing, or edema Skin: Warm and dry, no rashes or lesions, no petechiae Psych: normal mood, normal affect - Medical Decision Making The patient is a 66 year old [place]ib[place]ian speaking male accompanied with his aide, with a significant past medical history of bladder cancer s/p chemo and urostomy in place, atrial fibrillation on Warfarin, hypertension, diabetes, and hyperlipidemia, who presents to the emergency department for evaluation of a 3 week history of bilateral lower back pain. Plans: CT scan of abdomen and pelvis ECG Labs UA <Mary Ann Tyson - Last Filed: 08/25/17 11:50> - Resident Resident Name: Corbin Hall - ED Attending Attestation I have performed the following: I have examined & evaluated the patient, The case was reviewed & discussed with the resident, I agree w/resident's findings & plan, Exceptions are as noted - Critical Care Time Total Critical Care Time: 45 Critical Care Statement: The care of this patient involved high complexity decision making to prevent further life threatening deterioration of the patient 's condition and/or to evaluate & treat vital organ system(s) failure or risk of failure. - Medical Decision Making Presents with low back discomfort EKG demonstrates A. fib with RVR treated with IV diltiazem and by mouth Cardizem Patient now rate controlled hemodynamically stable. CT abdomen pelvis demonstrates lymphadenopathy and evidence of metastatic disease this most likely is client account representative of patient's pain Findings discussed with patient's primary care provider We'll admit to medicine for further management. 08/25/17 18:27 <Troy Gregory - Last Filed: 08/25/17 18:28> Attestations - Attestations Documentation prepared by Mary Ann Tyson, acting as medical staff credentialing coordinator for Troy Gregory MD. <Mary Ann Tyson - Last Filed: 08/25/17 11:50>
[2017-08-25] MEDS ORDERED: ACETAMINOPHEN 1000 MG/100 ML VIAL (NON FORMULARY) IVPB ONE (11:01)
[2017-08-25] MEDS ORDERED: SODIUM CHLORIDE 500 ML IV STA (11:06)
[2017-08-25] MEDS ORDERED: dilTIAZem HCL 50 MG/10 ML - 10 ML VIAL IVPUSH ONE (11:32)
[2017-08-25] MEDS ORDERED: ACETAMINOPHEN INJECTION 100 ML IVPB ONE (11:34)
[2017-08-25] MEDS ORDERED: dilTIAZem HCL 50 MG/10 ML - 10 ML VIAL ONE (11:35)
[2017-08-25 11:39] LABS: BASO % 0.6 % (0-2.0); EOS % 0.4 % (0-4.5); HEMATOCRIT 42.5 % (35.4-49); HEMOGLOBIN 13.8 GM/dL (11.7-16.9); LYMPH % 9.5 % (8-40); MCHC 32.5 g/dl (32.0-35.9); MEAN CELL VOLUME 79.9 fl (80-96); MEAN PLT VOLUME 9.2 fl (7.5-11.1); MONO % 6.7 % (3.8-10.2); NEUT % 82.8 % (42.8-82.8); PLATELET COUNT 297 K/MM3 (134-434); RBC 5.32 M/mm3 (4.00-5.60); RDW 17.3 % (11.9-15.9); WHITE BLOOD COUNT 11.9 K/mm3 (4.0-10.0)
[2017-08-25 11:44] LABS: VENOUS PC02 39.4 mmHg (38-52); VENOUS PH 7.4 (7.32-7.42); VENOUS PO2 45.9 mmHg (28-48)
[2017-08-25] MEDS ORDERED: DILTIAZEM INJECTION 125 MG in DEXTROSE 5%-WATER - 100 ML IVPB SCH (11:45)
[2017-08-25 11:52] LABS: URINE APPEARANCE CLOUDY; URINE BILIRUBIN NEGATIVE (<2.0 mg/dL); URINE COLOR DKYELLOW; URINE GLUCOSE (UA) NEGATIVE (NEGATIVE); URINE KETONE NEGATIVE (NEGATIVE); URINE NITRITE NEGATIVE (NEGATIVE); URINE UROBILINOGEN NEGATIVE mg/dL (0.2-1.0)
[2017-08-25 11:56] LABS: INR 2.08 (0.82-1.09); PROTHROMBIN TIME (PATIENT) 23.5 SEC (9.7-13.0)
[2017-08-25 11:59] LABS: URINE LEUK ESTERASE 2+ (NEGATIVE); URINE PROTEIN 2+ (NEGATIVE)
[2017-08-25] MEDS ORDERED: dilTIAZem HCL 60 MG TABLET (FP) PO ONE (11:59)
[2017-08-25 12:02] LABS: ALBUMIN 3.3 g/dl (3.4-5.0); ALK PHOS 142 U/L (45-117); ANION GAP 9 (8-16); BILIRUBIN,TOTAL 0.5 mg/dL (0.2-1.0); BLOOD UREA NITROGEN 26 mg/dL (7-18); CALCIUM 8.9 mg/dL (8.5-10.1); CHLORIDE 105 mmol/L (98-107); CO2 24 mmol/L (21-32); CREATININE 1.3 mg/dL (0.7-1.3); GLUCOSE,RANDOM 109 mg/dL (74-106); SGPT/ALT 19 U/L (12-78); SODIUM 138 mmol/L (136-145); TOT PROT 8.1 g/dl (6.4-8.2)
[2017-08-25 12:05] LABS: URINE MUCUS RARE
[2017-08-25 12:10] LABS: POTASSIUM 5.1 mmol/L (3.5-5.1); SGOT/AST 24 U/L (15-37)
[2017-08-25] MEDS ORDERED: dilTIAZem HCL 60 MG TABLET (FP) ONE (12:15)
--- NOTE | 2017-08-25 21:50 | EKG ---
Test Reason : Blood Pressure : / mmHG Vent. Rate : 130 BPM Atrial Rate : 340 BPM P-R Int : 000 ms QRS Dur : 084 ms QT Int : 318 ms P-R-T Axes : 000 -28 131 degrees QTc Int : 467 ms ATRIAL FIBRILLATION WITH RAPID VENTRICULAR RESPONSE ABNORMAL ECG WHEN COMPARED WITH ECG OF 29-JUN-2017 08:55, NONSPECIFIC T WAVE ABNORMALITY NO LONGER EVIDENT IN INFERIOR LEADS T WAVE INVERSION LESS EVIDENT IN ANTERIOR LEADS Confirmed by MD CHAYA, SAMANTHA ([id number]) on 08/25/2017 9:49:49 PM Referred By: Confirmed By:SAMANTHA LARKIN MD
[2017-08-25] MEDS ORDERED: dilTIAZem HCL 30 MG TABLET (FP) PO ONE (22:04)
[2017-08-25] MEDS ORDERED: ERTAPENEM SODIUM 1 GM in SODIUM CHLORIDE 50 ML IVPB ONE (22:43)
[2017-08-25] MEDS: oxyCODONE HCL 5 MG TABLET PO PRN (22:55)
[2017-08-25] MEDS ORDERED: METOPROLOL TARTRATE 50 MG TABLET (FP) PO ONE (23:00)
[2017-08-26] MEDS: WARFARIN NA 2 MG TABLET (UD) PO SCH ×2 (00:04→18:40)
--- NOTE | 2017-08-26 00:06 | HP ---
CHIEF COMPLAINT: back pain PCP: Carmen HISTORY OF PRESENT ILLNESS: This is a 66 year old male with a significant past medical history of bladder CA , CAD s/p stent placement one month ago, CHF with lifevest who presented to the ED with bilateral flank pain and low back pain radiating to hips x 3 weeks. Pt states the pain started a few days after being DC from [facility] s/p stent. He reports increased pain when he walks. ER course was notable for: (1) WBC 11.9 (2) CT abd/pel with pulmonary and hepatic masses c/w metastatic disease (3) afib with RVR, corrected with cardizem IV and po Recent Travel: pt denies PAST MEDICAL HISTORY: Bladder CA s/p resection/urostomy, DM, HTN, Afib, CHF s/p life vest PAST SURGICAL HISTORY: ileal conduit lumbar spinal surgery 20y ago Social History: Smoking: prior Alcohol: pt denies Drugs: pt denies Family History: unk Allergies No Known Allergies Allergy (Verified 08/25/17 10:07) HOME MEDICATIONS: 3 Medication Instructions Recorded Aspirin [Aspirin EC] 81 mg PO DAILY 08/25/17 Citalopram Hydrobromide 10 mg PO DAILY 08/25/17 [Citalopram HBr] Clopidogrel Bisulfate [Plavix] 75 mg PO DAILY 08/25/17 Ergocalciferol (Vitamin D2) 1.25 mg PO WEEKLY 08/25/17 [Drisdol] Furosemide [Lasix] 20 mg PO DAILY 08/25/17 Insulin Aspart [Novolog] 2 unit SQ ASDIR PRN 08/25/17 Insulin Glargine,Hum.rec.anlog 60 unit SQ DAILY 08/25/17 [Basaglar Kwikpen U-100] Linagliptin [Tradjenta] 5 mg PO DAILY 08/25/17 Metoprolol Tartrate [Lopressor -] 50 mg PO BID 08/25/17 Oxycodone HCl/Acetaminophen 1 each PO Q6H PRN 08/25/17 [Endocet 5-325 Tablet] Pantoprazole Sodium [Protonix] 40 mg PO DAILY 08/25/17 Warfarin Na [Coumadin] 2 mg PO DAILY 08/25/17 REVIEW OF SYSTEMS CONSTITUTIONAL: Absent: fever, chills, diaphoresis, generalized weakness, malaise, loss of appetite, weight change HEENT: Absent: rhinorrhea, nasal congestion, throat pain, throat swelling, difficulty swallowing, mouth swelling, ear pain, eye pain, visual changes CARDIOVASCULAR: Absent: chest pain, syncope, palpitations, irregular heart rate, lightheadedness , peripheral edema RESPIRATORY: Absent: cough, shortness of breath, dyspnea with exertion, orthopnea, wheezing, stridor, hemoptysis GASTROINTESTINAL: Absent: abdominal pain, abdominal distension, nausea, vomiting, diarrhea, constipation, melena, hematochezia GENITOURINARY: Absent: dysuria, frequency, urgency, hesitancy, hematuria, flank pain, genital pain MUSCULOSKELETAL: Present: back pain Absent: myalgia, arthralgia, joint swelling, neck pain SKIN: Absent: rash, itching, pallor HEMATOLOGIC/IMMUNOLOGIC: Absent: easy bleeding, easy bruising, lymphadenopathy, frequent infections ENDOCRINE: Absent: unexplained weight gain, unexplained weight loss, heat intolerance, cold intolerance NEUROLOGIC: Absent: headache, focal weakness or paresthesias, dizziness, unsteady gait, seizure, mental status changes, bladder or bowel incontinence PSYCHIATRIC: Absent: anxiety, depression, suicidal or homicidal ideation, hallucinations. PHYSICAL EXAMINATION Vital Signs - 24 hr 3 08/25/17 08/25/17 08/25/17 10:08 10:43 11:00 Temperature 98.3 F 99.6 F Pulse Rate 77 Pulse Rate [ 118 H 136 H Right Radial] Respiratory 18 26 H 18 Rate Blood Pressure 130/77 Blood Pressure 117/87 117/56 [Left Arm] O2 Sat by Pulse 100 97 97 Oximetry (%) 08/25/17 08/25/17 08/25/17 11:37 11:42 11:48 Temperature Pulse Rate Pulse Rate [ 129 H 147 H 93 H Right Radial] Respiratory 25 H 20 22 Rate Blood Pressure Blood Pressure 124/105 132/88 [Left Arm] O2 Sat by Pulse 97 97 96 Oximetry (%) 08/25/17 08/25/17 08/25/17 12:00 15:05 15:38 Temperature 98.7 F Pulse Rate Pulse Rate [ 99 H 83 97 H Right Radial] Respiratory 25 H 18 18 Rate Blood Pressure Blood Pressure 119/90 127/64 [Left Arm] O2 Sat by Pulse 96 97 97 Oximetry (%) 08/25/17 20:41 Temperature Pulse Rate Pulse Rate [ 72 Right Radial] Respiratory 18 Rate Blood Pressure Blood Pressure 122/75 [Left Arm] O2 Sat by Pulse 100 Oximetry (%) GENERAL: Awake, alert, and fully oriented, in no acute distress. HEAD: Normal with no signs of trauma. EYES: Pupils equal, round and reactive to light, extraocular movements intact, sclera anicteric, conjunctiva clear. No lid lag. EARS, NOSE, THROAT: Ears normal, nares patent, oropharynx clear without exudates. Moist mucous membranes. NECK: Normal range of motion, supple without lymphadenopathy, JVD, or masses. LUNGS: Breath sounds equal, clear to auscultation bilaterally. No wheezes, and no crackles. No accessory muscle use. HEART: Regular rate and rhythm, normal S1 and S2 without murmur, rub or gallop. ABDOMEN: Soft, nontender, not distended, normoactive bowel sounds, no guarding, no rebound, no masses. No hepatomegaly or splenomegaly. urostomy present, normal appearance MUSCULOSKELETAL: Normal range of motion at all joints. No bony deformities or tenderness. No CVA tenderness. no tenderness on palpation of lumbar spine UPPER EXTREMITIES: 2+ pulses, warm, well-perfused. No cyanosis. No clubbing. No peripheral edema. LOWER EXTREMITIES: 2+ pulses, warm, well-perfused. No calf tenderness. No peripheral edema. NEUROLOGICAL: Cranial nerves II-XII intact. Normal speech. Normal gait. PSYCHIATRIC: Cooperative. Good eye contact. Appropriate mood and affect. SKIN: Warm, dry, normal turgor, no rashes or lesions noted, normal capillary refill. Laboratory Results - last 24 hr 3 08/25/17 08/25/17 08/25/17 11:14 11:28 11:28 WBC 11.9 H RBC 5.32 Hgb 13.8 Hct 42.5 D MCV 79.9 L MCH 26.0 MCHC 32.5 RDW 17.3 H Plt Count 297 D MPV 9.2 Absolute Neuts (auto) 9.9 Neutrophils % 82.8 Lymphocytes % 9.5 D Monocytes % 6.7 Eosinophils % 0.4 D Basophils % 0.6 Nucleated RBC % 0 PT with INR 23.50 H INR 2.08 H D VBG pH 7.40 POC VBG pCO2 39.4 POC VBG pO2 45.9 Mixed VBG HCO3 23.9 Sodium 138 Potassium 5.1 Chloride 105 Carbon Dioxide 24 Anion Gap 9 BUN 26 H Creatinine 1.3 Creat Clearance w eGFR 54.90 Random Glucose 109 H D Lactic Acid 1.4 Calcium 8.9 Total Bilirubin 0.5 AST 24 D ALT 19 D Alkaline Phosphatase 142 H Troponin I < 0.02 Total Protein 8.1 Albumin 3.3 L Urine Color Dkyellow Urine Appearance Cloudy Urine pH 7.0 Ur Specific [place] 1.015 Urine Protein 2+ H Urine Glucose (UA) Negative Urine Ketones Negative Urine Blood 3+ H Urine Nitrite Negative Urine Bilirubin Negative Urine Urobilinogen Negative Ur Leukocyte Esterase 2+ H Urine WBC (Auto) 115 Urine RBC (Auto) 642 Urine Mucus Rare ECG ATRIAL FIBRILLATION WITH RAPID VENTRICULAR RESPONSE ST & T WAVE ABNORMALITY, CONSIDER LATERAL ISCHEMIA ABNORMAL ECG WHEN COMPARED WITH ECG OF 29-JUN-2017 08:55, NONSPECIFIC T WAVE ABNORMALITY NO LONGER EVIDENT IN INFERIOR LEADS T WAVE INVERSION LESS EVIDENT IN ANTERIOR LEADS Confirmed by MD CHAYA, SAMANTHA ([id number]) on 08/25/2017 9:49:[address] abd/pelvis IMPRESSION: 1. Multiple, bilateral pulmonary masses strongly suspicious for metastatic disease. 2. A few small hepatic masses, also suspicious for metastases. 3. S/P cystectomy with right lower quadrant ileal conduit. 4. Mild right-sided hydronephrosis. 5. Moderate retroperitoneal lymphadenopathy, right greater than left. Clinical correlation and follow-up recommended. Please see above discussion. 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 sepsis secondary to UTI - start ertapenem, multiple resistances on previous urine c/s 03/05/15 - given IVF in ED, appears euvolemic at present, no further IVF - urine culture resent as not received by micro in computer - urology consult Bladder CA with probable liver and lung metastases - will need oncology consult, pt unsure of prior oncologist, defer to PCP - urology consult back pain - CT lumbar spine ordered to r/o metastasis, xray negative 08/05/17 - cont home oxycodone afib with RVR - rate now controlled. Cont home metoprolol - transfer to telemetry - trend trop to r/o ischemic event as trigger, likely sepsis as trigger - monitor hr, increase metoprolol dose if elevated and BP tolerating - cont home warfarin, INR therapeutic - cardiology consult, defer to PCP, pt seen multiple groups as inpt in past CHF - cont lifevest - cont home lopressor, lasix CAD s/p stent placement one month ago - cont ASA and plavix, cont lopressor DM - hold home tadjenta - home basaglar 60u qAM changed to formulary levemir 30BID - BGM AC/HS with novolog sliding scale DVT PPX - cont home warfarin, INR therapeutic FEN - tolerating po - BMP in am - low sodium, diabetic diet as tolerated Dispo: Pt currently requires further inpatient monitoring for management of his multiple acute conditions. Visit type - Emergency Visit Emergency Visit: Yes ED Registration Date: 08/25/17 Care time: The patient presented to the Emergency Department on the above date and was hospitalized for further evaluation of their emergent condition. - New Patient This patient is new to me today: Yes Date on this admission: 08/25/17 - Critical Care Critical Care patient: No Hospitalist Screening - Colonoscopy Questionnaire Colonoscopy Questionnaire: Colonoscopy Questionnaire - Patient: 50 - 75 years old and never had a screening colonoscopy: Yes History of colon or rectal polyps, or CA: No History of IBD, Crohn's disease or UC: No History of abdominal radiation therapy as a child: No - Relative: 1 with colon or rectal CA, or polyps at age 60 or younger: Unknown Colon or rectal CA diagnosed at age 45 or younger: Unknown Multiple relatives with colon or rectal CA: Unknown - Outcome: Screening Result: Positive Screen
[2017-08-26 00:30] VITALS: BMI 33.9
[2017-08-26] MEDS: ERTAPENEM SODIUM 1 GM in SODIUM CHLORIDE 50 ML IVPB SCH ×2 (00:47→22:48)
[2017-08-26] MEDS: INSULIN SLIDING SCALE (NOVOLOG) 1 VIAL SQ SCH ×4 (06:43→22:47)
[2017-08-26] MEDS: INSULIN (LEVEMIR) 100 UNITS/ML UNITS SQ SCH ×2 (07:45→22:48)
--- NOTE | 2017-08-26 08:25 | CON.GU ---
Consult Consult Specialty:: urology Reason for Consultation:: bladder cancer s/p cystectomy and ileal conduit - History of Present Illness Chief Complaint: abdominal pain History of Present Illness: Patient with history of bladder cancer s/p cystectomy and conduit. Patient presented with abdominal pain. Denies nausea, vomitin, fever, and chills or gross hematuria in conduit bag. Patient had a CT scan suspicious for metastases. The patient is comfortable. - History Source History Provided By: Patient - Past Medical History Cardio/Vascular: Yes: AFIB, HTN, Hyperlipdemia Pulmonary: Yes: Sleep Apnea (rule out) Renal/: Yes: Renal Inusuff, Cancer (bladder) Endocrine: Yes: Diabetes Mellitus - Alcohol/Substance Use Hx Alcohol Use: No History of Substance Use: reports: None - Smoking History Smoking history: Never smoked Have you smoked in the past 12 months: No Aproximately how many cigarettes per day: 0 - Social History ADL: Independent History of Recent Travel: Yes ([place]) Home Medications - Allergies Allergies/Adverse Reactions: Allergies Allergy/AdvReac Type Severity Reaction Status Date / Time No Known Allergies Allergy Verified 08/25/17 10:07 - Home Medications Home Medications: Ambulatory Orders Aspirin [Aspirin EC] 81 mg PO DAILY 08/25/17 Citalopram Hydrobromide [Citalopram HBr] 10 mg PO DAILY 08/25/17 Clopidogrel Bisulfate [Plavix] 75 mg PO DAILY 08/25/17 Ergocalciferol (Vitamin D2) [Drisdol] 1.25 mg PO WEEKLY 08/25/17 Furosemide [Lasix] 20 mg PO DAILY 08/25/17 Insulin Aspart [Novolog] 2 unit SQ ASDIR PRN 08/25/17 Insulin Glargine,Hum.rec.anlog [Basaglar Kwikpen U-100] 60 unit SQ DAILY Linagliptin [Tradjenta] 5 mg PO DAILY 08/25/17 Metoprolol Tartrate [Lopressor -] 50 mg PO BID 08/25/17 Oxycodone HCl/Acetaminophen [Endocet 5-325 Tablet] 1 each PO Q6H PRN 08/25/17 Pantoprazole Sodium [Protonix] 40 mg PO DAILY 08/25/17 Warfarin Na [Coumadin] 2 mg PO DAILY 08/25/17 Physical Exam- Vital Signs: Vital Signs Temperature 98.5 F 08/26/17 06:00 Pulse Rate 90 08/26/17 06:00 Respiratory Rate 20 08/26/17 06:00 Blood Pressure 115/62 08/26/17 06:00 O2 Sat by Pulse Oximetry (%) 96 08/26/17 02:00 Constitutional: Yes: Well Nourished, No Distress, Calm Eyes: Yes: WNL, Conjunctiva Clear, EOM Intact HENT: Yes: WNL, Atraumatic, Normocephalic Neck: Yes: WNL, Supple, Trachea Midline Cardiovascular: Yes: WNL Respiratory: Yes: WNL, Regular Gastrointestinal: Yes: WNL, Normal Bowel Sounds, Soft (conduit draining clear urine) Renal/: Yes: WNL, Urethral Discharge Pelvis: Yes: WNL Testicles: Yes: WNL Scrotum: Yes: WNL Penis: Yes: WNL (no prostate palpable) Extremities: Yes: WNL Labs: CBC, BMP 08/25/17 11:28 08/25/17 11:28 Imaging - Results Cat Scan: Report Reviewed Assessment/Plan impression metastatic bladder cancer right hydronephrosis with stable creatinine urine suspicious for uti from ostomy bag plan urine collected for culture is from ostomy bag and is contaminated; would treat organisms base on clinical findings right hydronephrosis may be followed without intervention; if creatinine rises would consider diuretic renal scan metastatic disease may be followed as outpatient by oncology discussed with patient and chart reviewed x 25 minutes
[2017-08-26] MEDS: METOPROLOL TARTRATE 50 MG TABLET (FP) PO SCH ×2 (09:45→22:48)
[2017-08-26] MEDS: ASPIRIN COATED 81 MG TABLET.EC PO SCH (09:45)
[2017-08-26] MEDS: PANTOPRAZOLE 40 MG TABLET (FP) PO SCH (09:45)
[2017-08-26] MEDS: CITALOPRAM HYDROBROMIDE 10 MG TABLET (FP) PO SCH (09:45)
[2017-08-26] MEDS: CLOPIDOGREL BISULFATE 75 MG TABLET (FP) PO SCH (09:45)
[2017-08-26] MEDS: FUROSEMIDE 20 MG TABLET (FP) PO SCH (09:45)
--- NOTE | 2017-08-26 11:39 | EKG ---
Test Reason : Blood Pressure : / mmHG Vent. Rate : 110 BPM Atrial Rate : 096 BPM P-R Int : 000 ms QRS Dur : 088 ms QT Int : 330 ms P-R-T Axes : 000 -24 204 degrees QTc Int : 446 ms ATRIAL FIBRILLATION WITH RAPID VENTRICULAR RESPONSE WITH PREMATURE VENTRICULAR OR ABERRANTLY CONDUCTED COMPLEXES ABNORMAL ECG WHEN COMPARED WITH ECG OF 25-AUG-2017 11:23, T WAVE INVERSION MORE EVIDENT IN ANTERIOR LEADS Confirmed by LIS CHAMBERS, ROMULO ([id number]) on 08/26/2017 11:39:06 AM Referred By: KIMBERLY CROSS DR Confirmed By:ROMULO HAYS MD
--- NOTE | 2017-08-26 15:30 | PN ---
Progress Note, Physician Chief Complaint: EVENTS AND NOTES REVIEWED IN BED MILD DISTRESS - Current Medication List Current Medications: Active Medications Aspirin (Ecotrin -) 81 mg PO DAILY [facility] Last Admin: 08/26/17 09:45 Dose: 81 mg Citalopram Hydrobromide (Celexa -) 10 mg PO DAILY [facility] Last Admin: 08/26/17 09:45 Dose: 10 mg Clopidogrel Bisulfate (Plavix -) 75 mg PO DAILY [facility] Last Admin: 08/26/17 09:45 Dose: 75 mg Ergocalciferol (Drisdol -) 50,000 unit PO Q7D@1000 [facility] Furosemide (Lasix -) 20 mg PO DAILY [facility] Last Admin: 08/26/17 09:45 Dose: 20 mg Ertapenem 1 gm/ Sodium (Chloride) 50 mls @ 100 mls/hr IVPB HS [facility]; Protocol Last Admin: 08/26/17 00:47 Dose: 100 mls/hr Insulin Aspart (Novolog Vial Sliding Scale -) 1 vial SQ ACHS [facility]; Protocol Last Admin: 08/26/17 12:27 Dose: Not Given Insulin Detemir (Levemir Vial) 30 units SQ BID@0700,2200 [facility] Last Admin: 08/26/17 07:45 Dose: Not Given Metoprolol Tartrate (Lopressor -) 50 mg PO BID [facility] Last Admin: 08/26/17 09:45 Dose: 50 mg Oxycodone HCl (Roxicodone -) 5 mg PO Q6H PRN PRN Reason: PAIN LEVEL 6-10 Last Admin: 08/25/17 22:55 Dose: 5 mg Pantoprazole Sodium (Protonix -) 40 mg PO DAILY [facility] Last Admin: 08/26/17 09:45 Dose: 40 mg Warfarin Sodium (Coumadin -) 2 mg PO DAILY@1800 [facility] Last Admin: 08/26/17 00:04 Dose: 2 mg - Objective Vital Signs: Vital Signs Temperature 98.2 F 08/26/17 14:10 Pulse Rate 119 H 08/26/17 14:10 Respiratory Rate 20 08/26/17 14:10 Blood Pressure 132/68 08/26/17 14:10 O2 Sat by Pulse Oximetry (%) 96 08/26/17 09:00 Constitutional: Yes: Mild Distress Eyes: Yes: WNL HENT: Yes: WNL Neck: Yes: WNL Cardiovascular: Yes: Pulse Irregular Respiratory: Yes: WNL, On Nasal O2 Gastrointestinal: Yes: WNL Genitourinary: Yes: Other Musculoskeletal: Yes: Muscle Weakness Extremities: Yes: Other Edema: Yes Edema: LLE: Trace, RLE: Trace Peripheral Pulses WNL: Yes Integumentary: Yes: WNL Wound/Incision: Yes: Clean/Dry Neurological: Yes: Pre-Existing Deficit ...Motor Strength: LLE, RLE Psychiatric: Yes: WNL Labs: CBC, BMP 08/25/17 11:28 08/25/17 11:28 INR, PTT INR 2.08 (0.82-1.09) H D 08/25/17 11:28 Problem List - Problems (1) Sepsis due to urinary tract infection Code(s): A41.9 - SEPSIS, UNSPECIFIED ORGANISM; N39.0 - URINARY TRACT INFECTION, SITE NOT SPECIFIED (2) 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 (3) 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 Code(s): C67.9 - MALIGNANT NEOPLASM OF BLADDER, UNSPECIFIED; C78.7 - SECONDARY MALIG NEOPLASM OF LIVER AND INTRAHEPATIC BILE DUCT (4) Atrial fibrillation Code(s): I48.91 - UNSPECIFIED ATRIAL FIBRILLATION Qualifiers: Atrial fibrillation type: unspecified Qualified Code(s): I48.91 - Unspecified atrial fibrillation (5) Atrial fibrillation with rapid ventricular response Code(s): I48.91 - UNSPECIFIED ATRIAL FIBRILLATION (6) CAD (coronary artery disease) Code(s): I25.10 - ATHSCL HEART DISEASE OF [place] CORONARY ARTERY W/O ANG PCTRS (7) Hematuria Code(s): R31.9 - HEMATURIA, UNSPECIFIED Assessment/Plan ID CONSULT CHECK CX AND SENS IV ABX TELE UROLOGY EVAL CHECK LABS OOB TO CHAIR
[2017-08-26] MEDS ORDERED: PT OWN MED DRAWER 7, Y5N ONE (22:42)
[2017-08-27] MEDS: INSULIN SLIDING SCALE (NOVOLOG) 1 VIAL SQ SCH ×4 (06:09→21:17)
[2017-08-27] MEDS: INSULIN (LEVEMIR) 100 UNITS/ML UNITS SQ SCH ×2 (06:09→21:21)
[2017-08-27 06:22] LABS: BASO % 0.6 % (0-2.0); EOS % 0.6 % (0-4.5); HEMATOCRIT 39.2 % (35.4-49); HEMOGLOBIN 13.2 GM/dL (11.7-16.9); LYMPH % 11.3 % (8-40); MCH 26.9 pg (25.7-33.7); MCHC 33.6 g/dl (32.0-35.9); MEAN PLT VOLUME 9.5 fl (7.5-11.1); MONO % 8.9 % (3.8-10.2); NEUT % 78.6 % (42.8-82.8); PLATELET COUNT 273 K/MM3 (134-434); RDW 17.6 % (11.9-15.9)
[2017-08-27 06:52] LABS: INR 2.16 (0.82-1.09); PROTHROMBIN TIME (PATIENT) 24.4 SEC (9.7-13.0)
[2017-08-27 06:55] LABS: CHLORIDE 104 mmol/L (98-107); POTASSIUM 4.4 mmol/L (3.5-5.1); SODIUM 140 mmol/L (136-145)
[2017-08-27 07:11] LABS: ALBUMIN 2.9 g/dl (3.4-5.0); ALK PHOS 130 U/L (45-117); ANION GAP 9 (8-16); BILIRUBIN,TOTAL 0.3 mg/dL (0.2-1.0); BLOOD UREA NITROGEN 32 mg/dL (7-18); CALCIUM 8.4 mg/dL (8.5-10.1); CO2 27 mmol/L (21-32); CREATININE 1.4 mg/dL (0.7-1.3); GLUCOSE,RANDOM 128 mg/dL (74-106); MAGNESIUM 1.9 mg/dL (1.8-2.4); PHOSPHOROUS 3.7 mg/dL (2.5-4.9); SGOT/AST 12 U/L (15-37); SGPT/ALT 16 U/L (12-78); TOT PROT 7.1 g/dl (6.4-8.2)
[2017-08-27] MEDS: METOPROLOL TARTRATE 50 MG TABLET (FP) PO SCH ×2 (09:56→21:17)
[2017-08-27] MEDS: ASPIRIN COATED 81 MG TABLET.EC PO SCH (09:56)
[2017-08-27] MEDS: FUROSEMIDE 20 MG TABLET (FP) PO SCH (09:56)
[2017-08-27] MEDS: PANTOPRAZOLE 40 MG TABLET (FP) PO SCH (09:56)
[2017-08-27] MEDS: CLOPIDOGREL BISULFATE 75 MG TABLET (FP) PO SCH (09:56)
[2017-08-27] MEDS: CITALOPRAM HYDROBROMIDE 10 MG TABLET (FP) PO SCH (09:57)
--- NOTE | 2017-08-27 11:40 | PN ---
Progress Note, Physician Chief Complaint: awake alert in mild distress - Current Medication List Current Medications: Active Medications Aspirin (Ecotrin -) 81 mg PO DAILY [facility] Last Admin: 08/27/17 09:56 Dose: 81 mg Citalopram Hydrobromide (Celexa -) 10 mg PO DAILY [facility] Last Admin: 08/27/17 09:57 Dose: 10 mg Clopidogrel Bisulfate (Plavix -) 75 mg PO DAILY [facility] Last Admin: 08/27/17 09:56 Dose: 75 mg Ergocalciferol (Drisdol -) 50,000 unit PO Q7D@1000 [facility] Furosemide (Lasix -) 20 mg PO DAILY [facility] Last Admin: 08/27/17 09:56 Dose: 20 mg Ertapenem 1 gm/ Sodium (Chloride) 50 mls @ 100 mls/hr IVPB HS [facility]; Protocol Last Admin: 08/26/17 22:48 Dose: 100 mls/hr Insulin Aspart (Novolog Vial Sliding Scale -) 1 vial SQ ACHS [facility]; Protocol Last Admin: 08/27/17 11:24 Dose: 2 units Insulin Detemir (Levemir Vial) 30 units SQ BID@0700,2200 [facility] Last Admin: 08/27/17 06:09 Dose: Not Given Metoprolol Tartrate (Lopressor -) 50 mg PO BID [facility] Last Admin: 08/27/17 09:56 Dose: 50 mg Oxycodone HCl (Roxicodone -) 5 mg PO Q6H PRN PRN Reason: PAIN LEVEL 6-10 Last Admin: 08/25/17 22:55 Dose: 5 mg Pantoprazole Sodium (Protonix -) 40 mg PO DAILY [facility] Last Admin: 08/27/17 09:56 Dose: 40 mg Warfarin Sodium (Coumadin -) 2 mg PO DAILY@1800 [facility] Last Admin: 08/26/17 18:40 Dose: 2 mg - Objective Vital Signs: Vital Signs Temperature 98.6 F 08/27/17 10:00 Pulse Rate 103 H 08/27/17 10:00 Respiratory Rate 18 08/27/17 10:00 Blood Pressure 107/49 08/27/17 10:00 O2 Sat by Pulse Oximetry (%) 96 08/27/17 09:00 Constitutional: Yes: Mild Distress Eyes: Yes: WNL HENT: Yes: WNL Neck: Yes: WNL Cardiovascular: Yes: WNL Respiratory: Yes: WNL Gastrointestinal: Yes: WNL Genitourinary: Yes: Other Musculoskeletal: Yes: Muscle Weakness, Other Extremities: Yes: WNL Edema: No Peripheral Pulses WNL: Yes Integumentary: Yes: WNL Wound/Incision: Yes: Clean/Dry Neurological: Yes: Pre-Existing Deficit ...Motor Strength: LLE, RLE Psychiatric: Yes: WNL Labs: CBC, BMP 08/27/17 05:30 08/27/17 05:30 INR, PTT INR 2.16 (0.82-1.09) H 08/27/17 05:30 Problem List - Problems (1) Sepsis due to urinary tract infection Code(s): A41.9 - SEPSIS, UNSPECIFIED ORGANISM; N39.0 - URINARY TRACT INFECTION, SITE NOT SPECIFIED (2) 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 (3) 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 Code(s): C67.9 - MALIGNANT NEOPLASM OF BLADDER, UNSPECIFIED; C78.7 - SECONDARY MALIG NEOPLASM OF LIVER AND INTRAHEPATIC BILE DUCT (4) Atrial fibrillation Code(s): I48.91 - UNSPECIFIED ATRIAL FIBRILLATION Qualifiers: Atrial fibrillation type: unspecified Qualified Code(s): I48.91 - Unspecified atrial fibrillation (5) Atrial fibrillation with rapid ventricular response Code(s): I48.91 - UNSPECIFIED ATRIAL FIBRILLATION (6) CAD (coronary artery disease) Code(s): I25.10 - ATHSCL HEART DISEASE OF [place] CORONARY ARTERY W/O ANG PCTRS (7) Hematuria Code(s): R31.9 - HEMATURIA, UNSPECIFIED Assessment/Plan ID CONSULT CHECK CX AND SENS IV ABX TELE UROLOGY EVAL CHECK LABS OOB TO CHAIR snf placement
--- NOTE | 2017-08-27 16:16 | CONSULT ---
Consult Consult Specialty:: Nephrology Reason for Consultation:: CKD - History of Present Illness Chief Complaint: flank pain History of Present Illness: Pt is a 66 year old male with pmhx of HTN, CKD, bladder cancer and DM who presents to the ER with flank pain. He says that he has had the flank pain for about 3 weeks. He denies fevers or chills. He denies nausea or voiting. He has al ileal conduit and does not feel that the urine is changed in color. I was called to evaluate him for elevated creatinine. He denies shortness of breath. - History Source History Provided By: Patient, Medical Record - Past Medical History Cardio/Vascular: Yes: AFIB, HTN, Hyperlipdemia Pulmonary: Yes: Sleep Apnea (rule out) Renal/: Yes: Renal Inusuff, Cancer (bladder) Endocrine: Yes: Diabetes Mellitus - Alcohol/Substance Use Hx Alcohol Use: No History of Substance Use: reports: None - Smoking History Smoking history: Never smoked Have you smoked in the past 12 months: No Aproximately how many cigarettes per day: 0 - Social History ADL: Independent History of Recent Travel: Yes ([place]) Home Medications - Allergies Allergies/Adverse Reactions: Allergies Allergy/AdvReac Type Severity Reaction Status Date / Time No Known Allergies Allergy Verified 08/25/17 10:07 - Home Medications Home Medications: Ambulatory Orders Aspirin [Aspirin EC] 81 mg PO DAILY 08/25/17 Citalopram Hydrobromide [Citalopram HBr] 10 mg PO DAILY 08/25/17 Clopidogrel Bisulfate [Plavix] 75 mg PO DAILY 08/25/17 Ergocalciferol (Vitamin D2) [Drisdol] 1.25 mg PO WEEKLY 08/25/17 Furosemide [Lasix] 20 mg PO DAILY 08/25/17 Insulin Aspart [Novolog] 2 unit SQ ASDIR PRN 08/25/17 Insulin Glargine,Hum.rec.anlog [Basaglar Kwikpen U-100] 60 unit SQ DAILY Linagliptin [Tradjenta] 5 mg PO DAILY 08/25/17 Metoprolol Tartrate [Lopressor -] 50 mg PO BID 08/25/17 Oxycodone HCl/Acetaminophen [Endocet 5-325 Tablet] 1 each PO Q6H PRN 08/25/17 Pantoprazole Sodium [Protonix] 40 mg PO DAILY 08/25/17 Warfarin Na [Coumadin] 2 mg PO DAILY 08/25/17 Family Disease History - Family Disease History Family History: Denies Review of Systems - Review of Systems Constitutional: reports: Malaise Eyes: reports: No Symptoms HENT: reports: No Symptoms Neck: reports: No Symptoms Cardiovascular: reports: No Symptoms Respiratory: reports: No Symptoms Gastrointestinal: reports: No Symptoms Genitourinary: reports: Flank Pain Musculoskeletal: reports: No Symptoms Neurological: reports: No Symptoms Hematology/Lymphatic: reports: No Symptoms Psychiatric: reports: No Symptoms Physical Exam Vital Signs: Vital Signs Temperature 98.4 F 08/27/17 14:00 Pulse Rate 97 H 08/27/17 14:00 Respiratory Rate 20 08/27/17 14:00 Blood Pressure 121/72 08/27/17 14:00 O2 Sat by Pulse Oximetry (%) 96 08/27/17 09:00 Constitutional: Yes: Calm Eyes: Yes: Conjunctiva Clear HENT: Yes: Atraumatic Cardiovascular: Yes: S1, S2 Respiratory: Yes: CTA Bilaterally Gastrointestinal: Yes: Soft Renal/: Yes: Other (ileal conduit) Musculoskeletal: Yes: WNL Edema: No Neurological: Yes: Oriented Psychiatric: Yes: Oriented Labs: CBC, BMP 08/27/17 05:30 08/27/17 05:30 Laboratory Tests 03/08/15 06/28/17 06/29/17 06:30 06:00 06:25 WBC BUN Creatinine 1.0 1.7 H 1.5 H 07/02/17 08/25/17 08/25/17 06:10 11:28 11:28 WBC 11.9 H BUN Creatinine 1.4 H 1.3 08/27/17 08/27/17 05:30 05:30 WBC 10.0 BUN 32 H Creatinine 1.4 H Imaging - Results Cat Scan: Report Reviewed Ultrasound: Report Reviewed 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 (2) Atrial fibrillation Code(s): I48.91 - UNSPECIFIED ATRIAL FIBRILLATION Qualifiers: Atrial fibrillation type: unspecified Qualified Code(s): I48.91 - Unspecified atrial fibrillation (3) Hyperlipidemia Code(s): E78.5 - HYPERLIPIDEMIA, UNSPECIFIED Qualifiers: Hyperlipidemia type: Pure hypercholesterolemia Assessment/Plan Current Medications Generic Name Dose Route Start Last Admin Trade Name Blayneq PRN Reason Stop Dose Admin Aspirin 81 mg 08/26/17 10:00 08/27/17 09:56 Ecotrin - PO 81 mg DAILY [facility] Administration Citalopram Hydrobromide 10 mg 08/26/17 10:00 08/27/17 09:57 Celexa - PO 10 mg DAILY [facility] Administration Clopidogrel Bisulfate 75 mg 08/26/17 10:00 08/27/17 09:56 Plavix - PO 75 mg DAILY [facility] Administration Ergocalciferol 50,000 unit 09/01/17 10:00 Drisdol - PO Q7D@1000 [facility] Furosemide 20 mg 08/26/17 10:00 08/27/17 09:56 Lasix - PO 20 mg DAILY [facility] Administration Ertapenem 1 gm/ Sodium 50 mls @ 100 mls/hr 08/25/17 22:45 08/26/17 22:48 Chloride IVPB 100 mls/hr HS [facility] Administration Protocol Insulin Aspart 1 vial 08/26/17 07:00 08/27/17 11:24 Novolog Vial Sliding Scale - SQ 2 units ACHS [facility] Administration Protocol Insulin Detemir 30 units 08/26/17 07:00 08/27/17 06:09 Levemir Vial SQ Not Given BID@0700,2200 [facility] Metoprolol Tartrate 50 mg 08/26/17 10:00 08/27/17 09:56 Lopressor - PO 50 mg BID [facility] Administration Oxycodone HCl 5 mg 08/25/17 22:06 08/25/17 22:55 Roxicodone - PO 5 mg Q6H PRN Administration PAIN LEVEL 6-10 Pantoprazole Sodium 40 mg 08/26/17 10:00 08/27/17 09:56 Protonix - PO 40 mg DAILY [facility] Administration Warfarin Sodium 2 mg 08/25/17 23:45 08/26/17 18:40 Coumadin - PO 2 mg DAILY@1800 [facility] Administration Impression 1. CKD 2. right hydro 3. a-fib 4. DM 5. HTN 6. hx bladder cancer 7. bladder cancer Plan - renal function is stable - repeat labs in am - urology input is appreciated - pt will need ckd workup - pt has not followed as outpt - avoid nsaids Dr Baltazar
[2017-08-27] MEDS ORDERED: INSULIN (NOVOLOG) ASPART 100 UNITS/ML 10ML VIAL ONE ×2 (17:06→21:09)
[2017-08-27] MEDS: WARFARIN NA 2 MG TABLET (UD) PO SCH (17:28)
--- NOTE | 2017-08-27 18:52 | CON.ID ---
Consult Consult Specialty:: infectious diseases Referred by:: Reason for Consultation:: urosepsis - History of Present Illness Chief Complaint: bilateral flank pain History of Present Illness: This is a 66 year old male with a significant past medical history of bladder CA , CAD s/p stent placement one month ago, CHF with life[facility] who presented to the ED with bilateral flank pain and low back pain radiating to hips x 3 weeks. Pt states the pain started a few days after being DC from [facility] s/p stent. He reports increased pain when he walks. currently patient feels much better patient was started on ceftriaxone and his cx were send.patient currently calm - History Source History Provided By: Patient, Medical Record Limitations to Obtaining History: Language Barrier - Past Medical History Cardio/Vascular: Yes: AFIB, HTN, Hyperlipdemia Pulmonary: Yes: Sleep Apnea (rule out) Renal/: Yes: Renal Inusuff, Cancer (bladder) Endocrine: Yes: Diabetes Mellitus - Alcohol/Substance Use Hx Alcohol Use: No History of Substance Use: reports: None - Smoking History Smoking history: Never smoked Have you smoked in the past 12 months: No Aproximately how many cigarettes per day: 0 - Social History ADL: Independent History of Recent Travel: Yes ([place]) Home Medications - Allergies Allergies/Adverse Reactions: Allergies Allergy/AdvReac Type Severity Reaction Status Date / Time No Known Allergies Allergy Verified 08/25/17 10:07 - Home Medications Home Medications: Ambulatory Orders Aspirin [Aspirin EC] 81 mg PO DAILY 08/25/17 Citalopram Hydrobromide [Citalopram HBr] 10 mg PO DAILY 08/25/17 Clopidogrel Bisulfate [Plavix] 75 mg PO DAILY 08/25/17 Ergocalciferol (Vitamin D2) [Drisdol] 1.25 mg PO WEEKLY 08/25/17 Furosemide [Lasix] 20 mg PO DAILY 08/25/17 Insulin Aspart [Novolog] 2 unit SQ ASDIR PRN 08/25/17 Insulin Glargine,Hum.rec.anlog [Basaglar Kwikpen U-100] 60 unit SQ DAILY Linagliptin [Tradjenta] 5 mg PO DAILY 08/25/17 Metoprolol Tartrate [Lopressor -] 50 mg PO BID 08/25/17 Oxycodone HCl/Acetaminophen [Endocet 5-325 Tablet] 1 each PO Q6H PRN 08/25/17 Pantoprazole Sodium [Protonix] 40 mg PO DAILY 08/25/17 Warfarin Na [Coumadin] 2 mg PO DAILY 08/25/17 Review of Systems - Review of Systems Constitutional: reports: No Symptoms Eyes: reports: No Symptoms HENT: reports: No Symptoms Neck: reports: No Symptoms Cardiovascular: reports: No Symptoms Respiratory: reports: No Symptoms Gastrointestinal: reports: No Symptoms Genitourinary: reports: Flank Pain Musculoskeletal: reports: No Symptoms Integumentary: reports: No Symptoms Neurological: reports: No Symptoms Endocrine: reports: No Symptoms Hematology/Lymphatic: reports: No Symptoms Psychiatric: reports: No Symptoms Physical Exam Vital Signs: Vital Signs Temperature 98.4 F 08/27/17 14:00 Pulse Rate 97 H 08/27/17 14:00 Respiratory Rate 20 08/27/17 14:00 Blood Pressure 121/72 08/27/17 14:00 O2 Sat by Pulse Oximetry (%) 96 08/27/17 09:00 Constitutional: Yes: Well Nourished, No Distress, Calm Eyes: Yes: Conjunctiva Clear HENT: Yes: Atraumatic, Normocephalic Neck: Yes: Supple, Trachea Midline Cardiovascular: Yes: Regular Rate and Rhythm Respiratory: Yes: Regular, CTA Bilaterally Gastrointestinal: Yes: Normal Bowel Sounds, Soft, Other (urostomy in place site loks good,draiang clear urine) Musculoskeletal: Yes: WNL Extremities: Yes: WNL Integumentary: Yes: WNL Neurological: Yes: Alert, Oriented Psychiatric: Yes: Alert, Oriented Labs: CBC, BMP 08/27/17 05:30 08/27/17 05:30 Imaging - Results Cat Scan: Report Reviewed, Image Reviewed Ultrasound: Report Reviewed, Image Reviewed Assessment/Plan Problem List - Problems (1) Sepsis due to urinary tract infection Code(s): A41.9 - SEPSIS, UNSPECIFIED ORGANISM; N39.0 - URINARY TRACT INFECTION, SITE NOT SPECIFIED (2) 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 (3) 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 Code(s): C67.9 - MALIGNANT NEOPLASM OF BLADDER, UNSPECIFIED; C78.7 - SECONDARY MALIG NEOPLASM OF LIVER AND INTRAHEPATIC BILE DUCT (4) Atrial fibrillation Code(s): I48.91 - UNSPECIFIED ATRIAL FIBRILLATION Qualifiers: Atrial fibrillation type: unspecified Qualified Code(s): I48.91 - Unspecified atrial fibrillation (5) Atrial fibrillation with rapid ventricular response Code(s): I48.91 - UNSPECIFIED ATRIAL FIBRILLATION (6) CAD (coronary artery disease) Code(s): I25.10 - ATHSCL HEART DISEASE OF [place] CORONARY ARTERY W/O ANG PCTRS (7) Hematuria Code(s): R31.9 - HEMATURIA, UNSPECIFIED plan will stop ceftriaxone will switch to zosyn await for identification and sensitivities rest continue current mgmt
[2017-08-27] MEDS ORDERED: DEXTROSE 5%-WATER - 50 ML IVPB ONE (19:53)
[2017-08-27] MEDS ORDERED: PIPERACILLIN/TAZOBACTAM 3.375 GM VIAL IVPB ONE (19:53)
[2017-08-27] MEDS: PIPERACILLIN/TAZOB 3.375 GM 3.375 GM in DEXTROSE 5%-WATER - 50 ML IVPB SCH (20:01)
[2017-08-28] MEDS ORDERED: PIPERACILLIN/TAZOBACTAM 3.375 GM VIAL IVPB ONE ×2 (02:25→16:51)
[2017-08-28] MEDS ORDERED: DEXTROSE 5%-WATER - 50 ML IVPB ONE ×2 (02:26→16:51)
[2017-08-28] MEDS: PIPERACILLIN/TAZOB 3.375 GM 3.375 GM in DEXTROSE 5%-WATER - 50 ML IVPB SCH ×3 (02:44→16:54)
[2017-08-28] MEDS: INSULIN (LEVEMIR) 100 UNITS/ML UNITS SQ SCH ×2 (06:28→22:06)
[2017-08-28] MEDS: INSULIN SLIDING SCALE (NOVOLOG) 1 VIAL SQ SCH ×4 (06:29→22:07)
[2017-08-28] MEDS: METOPROLOL TARTRATE 50 MG TABLET (FP) PO SCH ×3 (08:18→22:06)
[2017-08-28] MEDS: oxyCODONE HCL 5 MG TABLET PO PRN (08:18)
[2017-08-28] MEDS: PANTOPRAZOLE 40 MG TABLET (FP) PO SCH (10:51)
[2017-08-28] MEDS: CLOPIDOGREL BISULFATE 75 MG TABLET (FP) PO SCH (10:52)
[2017-08-28] MEDS: CITALOPRAM HYDROBROMIDE 10 MG TABLET (FP) PO SCH (10:52)
[2017-08-28] MEDS: FUROSEMIDE 20 MG TABLET (FP) PO SCH (10:52)
[2017-08-28] MEDS: ASPIRIN COATED 81 MG TABLET.EC PO SCH (10:52)
--- NOTE | 2017-08-28 14:25 | PN ---
Progress Note, Physician History of Present Illness: patient feeling better no complaints - Current Medication List Current Medications: Active Medications Aspirin (Ecotrin -) 81 mg PO DAILY [facility] Last Admin: 08/28/17 10:52 Dose: 81 mg Citalopram Hydrobromide (Celexa -) 10 mg PO DAILY [facility] Last Admin: 08/28/17 10:52 Dose: 10 mg Clopidogrel Bisulfate (Plavix -) 75 mg PO DAILY [facility] Last Admin: 08/28/17 10:52 Dose: 75 mg Ergocalciferol (Drisdol -) 50,000 unit PO Q7D@1000 [facility] Furosemide (Lasix -) 20 mg PO DAILY [facility] Last Admin: 08/28/17 10:52 Dose: 20 mg Piperacillin Sod/Tazobactam (Sod 3.375 gm/ Dextrose) 50 mls @ 100 mls/hr IVPB Q8H-IV [facility]; Protocol Last Admin: 08/28/17 10:52 Dose: 100 mls/hr Insulin Aspart (Novolog Vial Sliding Scale -) 1 vial SQ ACHS [facility]; Protocol Last Admin: 08/28/17 12:56 Dose: 2 units Insulin Detemir (Levemir Vial) 30 units SQ BID@0700,2200 [facility] Last Admin: 08/28/17 06:28 Dose: Not Given Metoprolol Tartrate (Lopressor -) 50 mg PO BID [facility] Last Admin: 08/28/17 10:52 Dose: Not Given Oxycodone HCl (Roxicodone -) 5 mg PO Q6H PRN PRN Reason: PAIN LEVEL 6-10 Last Admin: 08/28/17 08:18 Dose: 5 mg Pantoprazole Sodium (Protonix -) 40 mg PO DAILY [facility] Last Admin: 08/28/17 10:51 Dose: 40 mg Warfarin Sodium (Coumadin -) 2 mg PO DAILY@1800 [facility] Last Admin: 08/27/17 17:28 Dose: 2 mg - Objective Vital Signs: Vital Signs Temperature 98.2 F 08/28/17 06:00 Pulse Rate 110 H 08/28/17 08:47 Respiratory Rate 20 08/28/17 08:47 Blood Pressure 102/64 08/28/17 08:47 O2 Sat by Pulse Oximetry (%) 96 08/27/17 21:00 Constitutional: Yes: No Distress, Calm Cardiovascular: Yes: Regular Rate and Rhythm Respiratory: Yes: Regular, CTA Bilaterally Gastrointestinal: Yes: Normal Bowel Sounds, Soft, Other (urostomy in place) Musculoskeletal: Yes: WNL Extremities: Yes: WNL Neurological: Yes: Alert, Oriented Psychiatric: Yes: Alert, Oriented Labs: CBC, BMP 08/27/17 05:30 08/27/17 05:30 INR, PTT INR 2.16 (0.82-1.09) H 08/27/17 05:30 Assessment/Plan Problem List - Problems (1) Sepsis due to urinary tract infection Code(s): A41.9 - SEPSIS, UNSPECIFIED ORGANISM; N39.0 - URINARY TRACT INFECTION, SITE NOT SPECIFIED (2) 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 (3) 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 Code(s): C67.9 - MALIGNANT NEOPLASM OF BLADDER, UNSPECIFIED; C78.7 - SECONDARY MALIG NEOPLASM OF LIVER AND INTRAHEPATIC BILE DUCT (4) Atrial fibrillation Code(s): I48.91 - UNSPECIFIED ATRIAL FIBRILLATION Qualifiers: Atrial fibrillation type: unspecified Qualified Code(s): I48.91 - Unspecified atrial fibrillation (5) Atrial fibrillation with rapid ventricular response Code(s): I48.91 - UNSPECIFIED ATRIAL FIBRILLATION (6) CAD (coronary artery disease) Code(s): I25.10 - ATHSCL HEART DISEASE OF [place] CORONARY ARTERY W/O ANG PCTRS (7) Hematuria Code(s): R31.9 - HEMATURIA, UNSPECIFIED plan continue zosyn await for identification of one organism rest continue current mgmt patient stable
--- NOTE | 2017-08-28 14:52 | PN ---
Progress Note, Physician Chief Complaint: AWAKE ALERT NO COMPLAINTS - Current Medication List Current Medications: Active Medications Aspirin (Ecotrin -) 81 mg PO DAILY [facility] Last Admin: 08/28/17 10:52 Dose: 81 mg Citalopram Hydrobromide (Celexa -) 10 mg PO DAILY [facility] Last Admin: 08/28/17 10:52 Dose: 10 mg Clopidogrel Bisulfate (Plavix -) 75 mg PO DAILY [facility] Last Admin: 08/28/17 10:52 Dose: 75 mg Ergocalciferol (Drisdol -) 50,000 unit PO Q7D@1000 [facility] Furosemide (Lasix -) 20 mg PO DAILY [facility] Last Admin: 08/28/17 10:52 Dose: 20 mg Piperacillin Sod/Tazobactam (Sod 3.375 gm/ Dextrose) 50 mls @ 100 mls/hr IVPB Q8H-IV [facility]; Protocol Last Admin: 08/28/17 10:52 Dose: 100 mls/hr Insulin Aspart (Novolog Vial Sliding Scale -) 1 vial SQ ACHS [facility]; Protocol Last Admin: 08/28/17 12:56 Dose: 2 units Insulin Detemir (Levemir Vial) 30 units SQ BID@0700,2200 [facility] Last Admin: 08/28/17 06:28 Dose: Not Given Metoprolol Tartrate (Lopressor -) 50 mg PO BID [facility] Last Admin: 08/28/17 10:52 Dose: Not Given Oxycodone HCl (Roxicodone -) 5 mg PO Q6H PRN PRN Reason: PAIN LEVEL 6-10 Last Admin: 08/28/17 08:18 Dose: 5 mg Pantoprazole Sodium (Protonix -) 40 mg PO DAILY [facility] Last Admin: 08/28/17 10:51 Dose: 40 mg Warfarin Sodium (Coumadin -) 2 mg PO DAILY@1800 [facility] Last Admin: 08/27/17 17:28 Dose: 2 mg - Objective Vital Signs: Vital Signs Temperature 98.2 F 08/28/17 06:00 Pulse Rate 110 H 08/28/17 08:47 Respiratory Rate 20 08/28/17 08:47 Blood Pressure 102/64 08/28/17 08:47 O2 Sat by Pulse Oximetry (%) 96 08/27/17 21:00 Constitutional: Yes: Mild Distress Eyes: Yes: WNL HENT: Yes: WNL Neck: Yes: WNL Cardiovascular: Yes: Pulse Irregular Respiratory: Yes: WNL Gastrointestinal: Yes: WNL Genitourinary: Yes: [place] Present Musculoskeletal: Yes: Muscle Weakness Extremities: Yes: WNL Edema: Yes Peripheral Pulses WNL: Yes Integumentary: Yes: Rash, Venous Stasis Changes Wound/Incision: Yes: Dressing Dry and Intact Neurological: Yes: Pre-Existing Deficit ...Motor Strength: LLE, RLE Psychiatric: Yes: WNL Labs: CBC, BMP 08/27/17 05:30 08/27/17 05:30 INR, PTT INR 2.16 (0.82-1.09) H 08/27/17 05:30 Problem List - Problems (1) Sepsis due to urinary tract infection Code(s): A41.9 - SEPSIS, UNSPECIFIED ORGANISM; N39.0 - URINARY TRACT INFECTION, SITE NOT SPECIFIED (2) 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 (3) 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 Code(s): C67.9 - MALIGNANT NEOPLASM OF BLADDER, UNSPECIFIED; C78.7 - SECONDARY MALIG NEOPLASM OF LIVER AND INTRAHEPATIC BILE DUCT (4) Atrial fibrillation Code(s): I48.91 - UNSPECIFIED ATRIAL FIBRILLATION Qualifiers: Atrial fibrillation type: unspecified Qualified Code(s): I48.91 - Unspecified atrial fibrillation (5) Atrial fibrillation with rapid ventricular response Code(s): I48.91 - UNSPECIFIED ATRIAL FIBRILLATION (6) CAD (coronary artery disease) Code(s): I25.10 - ATHSCL HEART DISEASE OF [place] CORONARY ARTERY W/O ANG PCTRS (7) Hematuria Code(s): R31.9 - HEMATURIA, UNSPECIFIED Assessment/Plan ID CONSULT CHECK CX AND SENS IV ABX ON ZOSYN TELE UROLOGY EVAL CHECK LABS OOB TO CHAIR HOME WITH NURSES CARE
--- NOTE | 2017-08-28 15:02 | PN ---
Progress Note, Physician History of Present Illness: Pt seen and examined at bedside. He is awake and alert. He denies shortness of breath. - Current Medication List Current Medications: Active Medications Aspirin (Ecotrin -) 81 mg PO DAILY [facility] Last Admin: 08/28/17 10:52 Dose: 81 mg Citalopram Hydrobromide (Celexa -) 10 mg PO DAILY [facility] Last Admin: 08/28/17 10:52 Dose: 10 mg Clopidogrel Bisulfate (Plavix -) 75 mg PO DAILY [facility] Last Admin: 08/28/17 10:52 Dose: 75 mg Ergocalciferol (Drisdol -) 50,000 unit PO Q7D@1000 [facility] Furosemide (Lasix -) 20 mg PO DAILY [facility] Last Admin: 08/28/17 10:52 Dose: 20 mg Piperacillin Sod/Tazobactam (Sod 3.375 gm/ Dextrose) 50 mls @ 100 mls/hr IVPB Q8H-IV [facility]; Protocol Last Admin: 08/28/17 10:52 Dose: 100 mls/hr Insulin Aspart (Novolog Vial Sliding Scale -) 1 vial SQ ACHS [facility]; Protocol Last Admin: 08/28/17 12:56 Dose: 2 units Insulin Detemir (Levemir Vial) 30 units SQ BID@0700,2200 [facility] Last Admin: 08/28/17 06:28 Dose: Not Given Metoprolol Tartrate (Lopressor -) 50 mg PO BID [facility] Last Admin: 08/28/17 10:52 Dose: Not Given Oxycodone HCl (Roxicodone -) 5 mg PO Q6H PRN PRN Reason: PAIN LEVEL 6-10 Last Admin: 08/28/17 08:18 Dose: 5 mg Pantoprazole Sodium (Protonix -) 40 mg PO DAILY [facility] Last Admin: 08/28/17 10:51 Dose: 40 mg Warfarin Sodium (Coumadin -) 2 mg PO DAILY@1800 [facility] Last Admin: 08/27/17 17:28 Dose: 2 mg - Objective Vital Signs: Vital Signs Temperature 98.2 F 08/28/17 06:00 Pulse Rate 110 H 08/28/17 08:47 Respiratory Rate 20 08/28/17 08:47 Blood Pressure 102/64 08/28/17 08:47 O2 Sat by Pulse Oximetry (%) 96 07/19/18 21:00 Constitutional: Yes: Calm Eyes: Yes: Conjunctiva Clear HENT: Yes: Atraumatic Neck: Yes: Supple Cardiovascular: Yes: S1, S2 Respiratory: Yes: CTA Bilaterally Gastrointestinal: Yes: Soft Genitourinary: Yes: Other (ileal conduit) Musculoskeletal: Yes: WNL Edema: No Neurological: Yes: Oriented Psychiatric: Yes: Oriented Labs: CBC, BMP 08/27/17 05:30 08/27/17 05:30 INR, PTT INR 2.16 (0.82-1.09) H 08/27/17 05:30 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 (2) Atrial fibrillation Code(s): I48.91 - UNSPECIFIED ATRIAL FIBRILLATION Qualifiers: Atrial fibrillation type: unspecified Qualified Code(s): I48.91 - Unspecified atrial fibrillation (3) Hyperlipidemia Code(s): E78.5 - HYPERLIPIDEMIA, UNSPECIFIED Qualifiers: Hyperlipidemia type: Pure hypercholesterolemia Assessment/Plan Current Medications Generic Name Dose Route Start Last Admin Trade Name Freq PRN Reason Stop Dose Admin Aspirin 81 mg 08/26/17 10:00 08/28/17 10:52 Ecotrin - PO 81 mg DAILY [facility] Administration Citalopram Hydrobromide 10 mg 08/26/17 10:00 08/28/17 10:52 Celexa - PO 10 mg DAILY [facility] Administration Clopidogrel Bisulfate 75 mg 08/26/17 10:00 08/28/17 10:52 Plavix - PO 75 mg DAILY [facility] Administration Ergocalciferol 50,000 unit 09/01/17 10:00 Drisdol - PO Q7D@1000 [facility] Furosemide 20 mg 08/26/17 10:00 08/28/17 10:52 Lasix - PO 20 mg DAILY [facility] Administration Piperacillin Sod/Tazobactam 50 mls @ 100 mls/hr 08/27/17 19:00 08/28/17 10:52 Sod 3.375 gm/ Dextrose IVPB 100 mls/hr Q8H-IV [facility] Administration Protocol Insulin Aspart 1 vial 08/26/17 07:00 08/28/17 12:56 Novolog Vial Sliding Scale - SQ 2 units ACHS [facility] Administration Protocol Insulin Detemir 30 units 08/26/17 07:00 08/28/17 06:28 Levemir Vial SQ Not Given BID@0700,2200 [facility] Metoprolol Tartrate 50 mg 08/26/17 10:00 08/28/17 10:52 Lopressor - PO Not Given BID [facility] Oxycodone HCl 5 mg 08/25/17 22:06 08/28/17 08:18 Roxicodone - PO 5 mg Q6H PRN Administration PAIN LEVEL 6-10 Pantoprazole Sodium 40 mg 08/26/17 10:00 08/28/17 10:51 Protonix - PO 40 mg DAILY [facility] Administration Warfarin Sodium 2 mg 08/25/17 23:45 08/27/17 17:28 Coumadin - PO 2 mg DAILY@1800 [facility] Administration Impression 1. CKD 2. right hydro 3. a-fib 4. DM 5. HTN 6. hx bladder cancer 7. bladder cancer Plan - check bmp - follow cultures - abx per ID - pt will need ckd workup - avoid nsaids Dr Baltazar
[2017-08-28] MEDS: WARFARIN NA 2 MG TABLET (UD) PO SCH (17:08)
[2017-08-29] MEDS ORDERED: PIPERACILLIN/TAZOBACTAM 3.375 GM VIAL IVPB ONE ×3 (00:44→18:39)
[2017-08-29] MEDS ORDERED: DEXTROSE 5%-WATER - 50 ML IVPB ONE ×3 (00:44→18:39)
[2017-08-29] MEDS: PIPERACILLIN/TAZOB 3.375 GM 3.375 GM in DEXTROSE 5%-WATER - 50 ML IVPB SCH ×4 (00:59→18:41)
[2017-08-29] MEDS: INSULIN SLIDING SCALE (NOVOLOG) 1 VIAL SQ SCH ×4 (06:01→22:15)
[2017-08-29] MEDS: INSULIN (LEVEMIR) 100 UNITS/ML UNITS SQ SCH ×2 (06:01→22:18)
[2017-08-29 08:52] LABS: ANION GAP 9 (8-16); BLOOD UREA NITROGEN 34 mg/dL (7-18); CALCIUM 8.6 mg/dL (8.5-10.1); CHLORIDE 103 mmol/L (98-107); CO2 28 mmol/L (21-32); CREATININE 1.5 mg/dL (0.7-1.3); GLUCOSE,RANDOM 115 mg/dL (74-106); POTASSIUM 3.8 mmol/L (3.5-5.1); SODIUM 140 mmol/L (136-145)
--- NOTE | 2017-08-29 10:32 | CONSULT ---
Consult - text type - Consultation Consultation Note: ONCOLOGY CONSULT : HISTORY OF PRESENT ILLNESS: 66 yr old male referred to us for further management of his metastatic cancer. He is a poor historian (I had this conversation with an pecan huller) 66 yr old male with PMH of bladder Ca with ileal conduit. He doesnt remember who is surgeon is, but said his office was across [facility]. He hasnt see the surgeon for a few years and since the surgeon's office moved he hasnt followed up with him. I introduced Dr. Remy dn Dr. Bee name but he didnt recognize it. He was admitted with flank pain and back pain and currently he is being treated for suspected UTI/ pyelonephritis with zosyn. A CTA/P shows extensive metastatic disease in the lungs, RP nodes and the liver. Comorbidities : CAD s/p stent placement one month ago, CHF with lifevest Recent Travel: pt denies PAST MEDICAL HISTORY: Bladder CA s/p resection/urostomy, DM, HTN, Afib, CHF s/p life vest PAST SURGICAL HISTORY: ileal conduit lumbar spinal surgery 20y ago Social History: Smoking: prior Alcohol: pt denies Drugs: pt denies Family History: unk Allergies No Known Allergies Allergy (Verified 08/25/17 10:07) HOME MEDICATIONS: 3 Medication Instructions Recorded Aspirin [Aspirin EC] 81 mg PO DAILY 08/25/17 Citalopram Hydrobromide 10 mg PO DAILY 08/25/17 [Citalopram HBr] Clopidogrel Bisulfate [Plavix] 75 mg PO DAILY 08/25/17 Ergocalciferol (Vitamin D2) 1.25 mg PO WEEKLY 08/25/17 [Drisdol] Furosemide [Lasix] 20 mg PO DAILY 08/25/17 Insulin Aspart [Novolog] 2 unit SQ ASDIR PRN 08/25/17 Insulin Glargine,Hum.rec.anlog 60 unit SQ DAILY 08/25/17 [Basaglar Kwikpen U-100] Linagliptin [Tradjenta] 5 mg PO DAILY 08/25/17 Metoprolol Tartrate [Lopressor -] 50 mg PO BID 08/25/17 Oxycodone HCl/Acetaminophen 1 each PO Q6H PRN 08/25/17 [Endocet 5-325 Tablet] Pantoprazole Sodium [Protonix] 40 mg PO DAILY 08/25/17 Warfarin Na [Coumadin] 2 mg PO DAILY 08/25/17 REVIEW OF SYSTEMS CONSTITUTIONAL: Absent: fever, chills, diaphoresis, generalized weakness, malaise, loss of appetite, weight change HEENT: Absent: rhinorrhea, nasal congestion, throat pain, throat swelling, difficulty swallowing, mouth swelling, ear pain, eye pain, visual changes CARDIOVASCULAR: Absent: chest pain, syncope, palpitations, irregular heart rate, lightheadedness , peripheral edema RESPIRATORY: Absent: cough, shortness of breath, dyspnea with exertion, orthopnea, wheezing, stridor, hemoptysis GASTROINTESTINAL: Absent: abdominal pain, abdominal distension, nausea, vomiting, diarrhea, constipation, melena, hematochezia GENITOURINARY: Absent: dysuria, frequency, urgency, hesitancy, hematuria, flank pain, genital pain MUSCULOSKELETAL: Present: back pain Absent: myalgia, arthralgia, joint swelling, neck pain SKIN: Absent: rash, itching, pallor HEMATOLOGIC/IMMUNOLOGIC: Absent: easy bleeding, easy bruising, lymphadenopathy, frequent infections ENDOCRINE: Absent: unexplained weight gain, unexplained weight loss, heat intolerance, cold intolerance NEUROLOGIC: Absent: headache, focal weakness or paresthesias, dizziness, unsteady gait, seizure, mental status changes, bladder or bowel incontinence PSYCHIATRIC: Absent: anxiety, depression, suicidal or homicidal ideation, hallucinations. Vital Signs Period Temp Pulse Resp BP Sys/Maynard Pulse Ox Last 24 Hr 97.9 F-98.6 F 66-105 18-20 100-119/60-74 98 GENERAL: Awake, alert, and fully oriented, in no acute distress. HEAD: Normal with no signs of trauma. EYES: Pupils equal, round and reactive to light, extraocular movements intact, sclera anicteric, conjunctiva clear. No lid lag. EARS, NOSE, THROAT: Ears normal, nares patent, oropharynx clear without exudates. Moist mucous membranes. NECK: Normal range of motion, supple without lymphadenopathy, JVD, or masses. LUNGS: Breath sounds equal, clear to auscultation bilaterally. No wheezes, and no crackles. No accessory muscle use. HEART: Regular rate and rhythm, normal S1 and S2 without murmur, rub or gallop. ABDOMEN: Soft, nontender, not distended, normoactive bowel sounds, no guarding, no rebound, no masses. No hepatomegaly or splenomegaly. urostomy bag present, normal appearance MUSCULOSKELETAL: Normal range of motion at all joints. No bony deformities or tenderness. UPPER EXTREMITIES: 2+ pulses, warm, well-perfused. No cyanosis. No clubbing. No peripheral edema. LOWER EXTREMITIES: 2+ pulses, warm, well-perfused. No calf tenderness. No peripheral edema. NEUROLOGICAL: Cranial nerves II-XII intact. Normal speech. Normal gait. PSYCHIATRIC: Cooperative. Good eye contact. Appropriate mood and affect. SKIN: Warm, dry, normal turgor, no rashes or lesions noted, normal capillary refill. 08/27/17 05:30 08/29/17 07:[address] abd/pelvis IMPRESSION: 1. Multiple, bilateral pulmonary masses strongly suspicious for metastatic disease. 2. A few small hepatic masses, also suspicious for metastases. 3. S/P cystectomy with right lower quadrant ileal conduit. 4. Mild right-sided hydronephrosis. 5. Moderate retroperitoneal lymphadenopathy, right greater than left. Clinical correlation and follow-up recommended. Please see above discussion. 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 Bladder cancer vs other primary - I see a note from 2016 in the chart saying that he had TCC of the bladder s/p BCG and TURBT but did not have muscle invasive disease at that time. The CT scans were also negative -A tissue diagnosis is important and a Retroperitoneal LN biopsy by IR is important to know which malignancy this is - the presentation could eb consistent with a lymphoma or GI primary as well. -Transitioning from coumadin to lovenox would be important to get a biopsy. -continue management of A. flutter and uro sepsis. -will order tumor markers
[2017-08-29] MEDS: CLOPIDOGREL BISULFATE 75 MG TABLET (FP) PO SCH (10:59)
[2017-08-29] MEDS: CITALOPRAM HYDROBROMIDE 10 MG TABLET (FP) PO SCH (10:59)
[2017-08-29] MEDS: METOPROLOL TARTRATE 50 MG TABLET (FP) PO SCH ×2 (10:59→22:17)
[2017-08-29] MEDS: FUROSEMIDE 20 MG TABLET (FP) PO SCH (10:59)
[2017-08-29] MEDS: PANTOPRAZOLE 40 MG TABLET (FP) PO SCH (10:59)
[2017-08-29] MEDS: ASPIRIN COATED 81 MG TABLET.EC PO SCH (10:59)
--- NOTE | 2017-08-29 13:02 | PN ---
Progress Note, Physician - Current Medication List Current Medications: Active Medications Aspirin (Ecotrin -) 81 mg PO DAILY [facility] Last Admin: 08/29/17 10:59 Dose: 81 mg Citalopram Hydrobromide (Celexa -) 10 mg PO DAILY [facility] Last Admin: 08/29/17 10:59 Dose: 10 mg Clopidogrel Bisulfate (Plavix -) 75 mg PO DAILY [facility] Last Admin: 08/29/17 10:59 Dose: 75 mg Ergocalciferol (Drisdol -) 50,000 unit PO Q7D@1000 [facility] Furosemide (Lasix -) 20 mg PO DAILY [facility] Last Admin: 08/29/17 10:59 Dose: 20 mg Piperacillin Sod/Tazobactam (Sod 3.375 gm/ Dextrose) 50 mls @ 100 mls/hr IVPB Q8H-IV [facility]; Protocol Last Admin: 08/29/17 10:58 Dose: 100 mls/hr Insulin Aspart (Novolog Vial Sliding Scale -) 1 vial SQ ACHS [facility]; Protocol Last Admin: 08/29/17 10:59 Dose: 6 units Insulin Detemir (Levemir Vial) 30 units SQ BID@0700,2200 [facility] Last Admin: 08/29/17 06:01 Dose: Not Given Metoprolol Tartrate (Lopressor -) 50 mg PO BID [facility] Last Admin: 08/29/17 10:59 Dose: 50 mg Pantoprazole Sodium (Protonix -) 40 mg PO DAILY [facility] Last Admin: 08/29/17 10:59 Dose: 40 mg Warfarin Sodium (Coumadin -) 2 mg PO DAILY@1800 [facility] Last Admin: 08/28/17 17:08 Dose: 2 mg - Objective Vital Signs: Vital Signs Temperature 98.2 F 08/29/17 06:00 Pulse Rate 105 H 08/29/17 09:18 Respiratory Rate 18 08/29/17 09:18 Blood Pressure 118/74 08/29/17 09:18 O2 Sat by Pulse Oximetry (%) 98 08/28/17 21:00 Labs: CBC, BMP 08/27/17 05:30 08/29/17 07:00 INR, PTT INR 2.16 (0.82-1.09) H 08/27/17 05:30 Problem List - Problems (1) Sepsis due to urinary tract infection Assessment/Plan: - and sepsis secondary to UTI - multiple resistances on previous urine c/s 03/05/15 - given IVF in ED, appears euvolemic at present, no further IVF - urine culture resent as not received by micro in computer - urology consult -ID consult--abx per id Code(s): A41.9 - SEPSIS, UNSPECIFIED ORGANISM; N39.0 - URINARY TRACT INFECTION, SITE NOT SPECIFIED (2) Metastasis Assessment/Plan: -Oncology consult Code(s): C79.9 - SECONDARY MALIGNANT NEOPLASM OF UNSPECIFIED SITE (3) Bladder cancer Assessment/Plan: -Bladder CA with probable liver and lung metastases - will need oncology consult - urology consult Code(s): C67.9 - MALIGNANT NEOPLASM OF BLADDER, UNSPECIFIED (4) Atrial fibrillation Assessment/Plan: - rate now controlled. Cont home metoprolol - trend trop to r/o ischemic event as trigger, likely sepsis as trigger - monitor hr, increase metoprolol dose if elevated and BP tolerating - cont home warfarin, INR therapeutic - cardiology consult Code(s): I48.91 - UNSPECIFIED ATRIAL FIBRILLATION Qualifiers: Atrial fibrillation type: unspecified Qualified Code(s): I48.91 - Unspecified atrial fibrillation (5) CAD (coronary artery disease) Assessment/Plan: -CAD s/p stent placement one month ago - cont ASA and plavix, cont lopressor Code(s): I25.10 - ATHSCL HEART DISEASE OF [place] CORONARY ARTERY W/O ANG PCTRS (6) Renal dysfunction Code(s): N28.9 - DISORDER OF KIDNEY AND URETER, UNSPECIFIED (7) Diabetes Assessment/Plan: - hold home tadjenta - home basaglar 60u qAM changed to formulary levemir 30BID - BGM AC/HS with novolog sliding scale Code(s): E11.9 - TYPE 2 DIABETES MELLITUS WITHOUT COMPLICATIONS (8) CHF (congestive heart failure) Assessment/Plan: - cont lifevest - cont home lopressor, lasix Code(s): I50.9 - HEART FAILURE, UNSPECIFIED
--- NOTE | 2017-08-29 13:25 | PN ---
Progress Note, Physician History of Present Illness: Pt seen and examined. Events noted. Pt states he is feeling better. Denies chills or any other specific new complaints. - Current Medication List Current Medications: Active Medications Aspirin (Ecotrin -) 81 mg PO DAILY [facility] Last Admin: 08/29/17 10:59 Dose: 81 mg Citalopram Hydrobromide (Celexa -) 10 mg PO DAILY [facility] Last Admin: 08/29/17 10:59 Dose: 10 mg Clopidogrel Bisulfate (Plavix -) 75 mg PO DAILY [facility] Last Admin: 08/29/17 10:59 Dose: 75 mg Ergocalciferol (Drisdol -) 50,000 unit PO Q7D@1000 [facility] Furosemide (Lasix -) 20 mg PO DAILY [facility] Last Admin: 08/29/17 10:59 Dose: 20 mg Piperacillin Sod/Tazobactam (Sod 3.375 gm/ Dextrose) 50 mls @ 100 mls/hr IVPB Q8H-IV [facility]; Protocol Last Admin: 08/29/17 10:58 Dose: 100 mls/hr Insulin Aspart (Novolog Vial Sliding Scale -) 1 vial SQ ACHS [facility]; Protocol Last Admin: 08/29/17 10:59 Dose: 6 units Insulin Detemir (Levemir Vial) 30 units SQ BID@0700,2200 [facility] Last Admin: 08/29/17 06:01 Dose: Not Given Metoprolol Tartrate (Lopressor -) 50 mg PO BID [facility] Last Admin: 08/29/17 10:59 Dose: 50 mg Pantoprazole Sodium (Protonix -) 40 mg PO DAILY [facility] Last Admin: 08/29/17 10:59 Dose: 40 mg Warfarin Sodium (Coumadin -) 2 mg PO DAILY@1800 [facility] Last Admin: 08/28/17 17:08 Dose: 2 mg - Objective Vital Signs: Vital Signs Temperature 98.2 F 08/29/17 06:00 Pulse Rate 105 H 08/29/17 09:18 Respiratory Rate 18 08/29/17 09:18 Blood Pressure 118/74 08/29/17 09:18 O2 Sat by Pulse Oximetry (%) 98 08/28/17 21:00 Constitutional: Yes: No Distress, Calm Cardiovascular: Yes: Regular Rate and Rhythm Respiratory: Yes: Regular Gastrointestinal: Yes: Normal Bowel Sounds, Soft Genitourinary: Yes: Other (ileostomy) Musculoskeletal: Yes: Back Pain Extremities: Yes: WNL Integumentary: Yes: WNL Neurological: Yes: Alert, Oriented Labs: CBC, BMP 08/27/17 05:30 08/29/17 07:00 INR, PTT INR 2.16 (0.82-1.09) H 08/27/17 05:30 Microbiology 08/25/17 11:33 Urine - Urine Nephrostomy Tube Right Urine Culture - Final Escherichia Coli Escherichia Coli#2 Enterococcus Faecalis 08/25/17 11:33 Blood - Peripheral Venous Blood Culture - Preliminary NO GROWTH OBTAINED AFTER 96 HOURS, INCUBATION TO CONTINUE FOR 1 DAYS. 08/25/17 11:28 Blood - Peripheral Venous Blood Culture - Preliminary NO GROWTH OBTAINED AFTER 96 HOURS, INCUBATION TO CONTINUE FOR 1 DAYS. 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 Code(s): C67.9 - MALIGNANT NEOPLASM OF BLADDER, UNSPECIFIED; C78.7 - SECONDARY MALIG NEOPLASM OF LIVER AND INTRAHEPATIC BILE DUCT (3) Diabetes Code(s): E11.9 - TYPE 2 DIABETES MELLITUS WITHOUT COMPLICATIONS (4) Sepsis due to urinary tract infection Code(s): A41.9 - SEPSIS, UNSPECIFIED ORGANISM; N39.0 - URINARY TRACT INFECTION, SITE NOT SPECIFIED (5) Atrial fibrillation with rapid ventricular response Code(s): I48.91 - UNSPECIFIED ATRIAL FIBRILLATION (6) CAD (coronary artery disease) Code(s): I25.10 - ATHSCL HEART DISEASE OF [place] CORONARY ARTERY W/O ANG PCTRS (7) Hematuria Code(s): R31.9 - HEMATURIA, UNSPECIFIED Assessment/Plan Enterococcal/E. coli complicated UTI Metastatic Bladder CA with ileostomy CAD AFIB - cont. current antibiotic - pt currently afebrile without leukocytosis cont. monitor
[2017-08-29] MEDS: WARFARIN NA 2 MG TABLET (UD) PO SCH (18:41)
--- NOTE | 2017-08-29 21:42 | CONSULT ---
Consult Consult Specialty:: endocrine Referred by:: dr.annabi baxter Reason for Consultation:: diabetes mellitus - History of Present Illness Chief Complaint: back pain History of Present Illness: 66 year old male with a significant past medical history of bladder CA, CAD s/p stent placement one month ago, CHF with lifevest who presented to the ED with bilateral flank pain and low back pain radiating to hips. Pt states the pain started a few days ago,has since had higher sugars,despite not eating well,with shortness of breath and heavy breathing - Past Medical History Cardio/Vascular: Yes: AFIB, HTN, Hyperlipdemia Pulmonary: Yes: Sleep Apnea (rule out) Renal/: Yes: Renal Inusuff, Cancer (bladder) Endocrine: Yes: Diabetes Mellitus - Alcohol/Substance Use Hx Alcohol Use: No History of Substance Use: reports: None - Smoking History Smoking history: Never smoked Have you smoked in the past 12 months: No Aproximately how many cigarettes per day: 0 - Social History ADL: Independent History of Recent Travel: Yes ([place]) Home Medications - Allergies Allergies/Adverse Reactions: Allergies Allergy/AdvReac Type Severity Reaction Status Date / Time No Known Allergies Allergy Verified 08/25/17 10:07 - Home Medications Home Medications: Ambulatory Orders Aspirin [Aspirin EC] 81 mg PO DAILY 08/25/17 Citalopram Hydrobromide [Citalopram HBr] 10 mg PO DAILY 08/25/17 Clopidogrel Bisulfate [Plavix] 75 mg PO DAILY 08/25/17 Ergocalciferol (Vitamin D2) [Drisdol] 1.25 mg PO WEEKLY 08/25/17 Furosemide [Lasix] 20 mg PO DAILY 08/25/17 Insulin Aspart [Novolog] 2 unit SQ ASDIR PRN 08/25/17 Insulin Glargine,Hum.rec.anlog [Basaglar Kwikpen U-100] 60 unit SQ DAILY Linagliptin [Tradjenta] 5 mg PO DAILY 08/25/17 Metoprolol Tartrate [Lopressor -] 50 mg PO BID 08/25/17 Oxycodone HCl/Acetaminophen [Endocet 5-325 Tablet] 1 each PO Q6H PRN 08/25/17 Pantoprazole Sodium [Protonix] 40 mg PO DAILY 08/25/17 Warfarin Na [Coumadin] 2 mg PO DAILY 08/25/17 Review of Systems - Review of Systems Constitutional: reports: Weakness Eyes: reports: No Symptoms HENT: reports: No Symptoms Neck: reports: No Symptoms Cardiovascular: reports: Shortness of Breath Respiratory: reports: Exercise Intolerance, SOB on Exertion Gastrointestinal: reports: Bloating, Constipation Genitourinary: reports: Frequency, Urgency Breasts: reports: No Symptoms Reported Musculoskeletal: reports: Joint Pain, Joint Swelling, Muscle Pain Integumentary: reports: No Symptoms Endocrine: reports: Unexplained Weight Loss Physical Exam Vital Signs: Vital Signs Temperature 97.8 F 08/29/17 19:22 Pulse Rate 80 08/29/17 19:22 Respiratory Rate 18 08/29/17 19:22 Blood Pressure 107/76 08/29/17 19:22 O2 Sat by Pulse Oximetry (%) 98 08/28/17 21:00 Constitutional: Yes: Anxious Eyes: Yes: EOM Intact HENT: Yes: Normocephalic Neck: Yes: Trachea Midline Cardiovascular: Yes: Regular Rate and Rhythm Respiratory: Yes: CTA Bilaterally Gastrointestinal: Yes: Normal Bowel Sounds ...Rectal Exam: Yes: Deferred Breast(s): Yes: WNL Musculoskeletal: Yes: Back Pain, Muscle Pain Extremities: Yes: WNL Neurological: Yes: Alert, Oriented Labs: CBC, BMP 08/27/17 05:30 08/29/17 07:00 Assessment/Plan Current Active Problems Bladder cancer (Acute) 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 (Acute) 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 (Acute) Diabetes (Acute) Metastasis (Acute) Sepsis due to urinary tract infection (Acute) Abnormal Lab Results 08/29/17 07:00 BUN 34 H Creatinine 1.5 H Random Glucose 115 H Laboratory Results - last 24 hr 08/28/17 08/29/17 08/29/17 22:03 05:24 07:00 Sodium 140 Potassium 3.8 Chloride 103 Carbon Dioxide 28 Anion Gap 9 BUN 34 H Creatinine 1.5 H Creat Clearance w eGFR 46.54 POC Glucometer 162 129 Random Glucose 115 H Calcium 8.6 08/29/17 08/29/17 10:58 16:46 Sodium Potassium Chloride Carbon Dioxide Anion Gap BUN Creatinine Creat Clearance w eGFR POC Glucometer 329 145 Random Glucose Calcium plan bgm qid novolog scale levemir 20 units bid hold if sugar lower than 120mg/dl ck [id number]
[2017-08-30] MEDS: PIPERACILLIN/TAZOB 3.375 GM 3.375 GM in DEXTROSE 5%-WATER - 50 ML IVPB SCH ×3 (03:30→17:41)
[2017-08-30] MEDS ORDERED: oxyCODONE HCL 5 MG TABLET PO ONE (03:47)
[2017-08-30] MEDS: INSULIN (LEVEMIR) 100 UNITS/ML UNITS SQ SCH ×2 (06:10→21:59)
[2017-08-30] MEDS: INSULIN SLIDING SCALE (NOVOLOG) 1 VIAL SQ SCH ×4 (06:10→22:00)
[2017-08-30 07:47] LABS: BASO % 0.5 % (0-2.0); EOS % 1.7 % (0-4.5); HEMATOCRIT 36.6 % (35.4-49); HEMOGLOBIN 12.3 GM/dL (11.7-16.9); LYMPH % 10.1 % (8-40); MCH 26.8 pg (25.7-33.7); MCHC 33.6 g/dl (32.0-35.9); MEAN CELL VOLUME 79.8 fl (80-96); MEAN PLT VOLUME 9.4 fl (7.5-11.1); MONO % 6.8 % (3.8-10.2); NEUT % 80.9 % (42.8-82.8); PLATELET COUNT 270 K/MM3 (134-434); RBC 4.59 M/mm3 (4.00-5.60); RDW 17.8 % (11.9-15.9)
[2017-08-30 08:27] LABS: CHLORIDE 103 mmol/L (98-107); POTASSIUM 3.9 mmol/L (3.5-5.1); SODIUM 139 mmol/L (136-145)
[2017-08-30 08:35] LABS: ALBUMIN 2.8 g/dl (3.4-5.0); ALK PHOS 122 U/L (45-117); ANION GAP 9 (8-16); BILIRUBIN,TOTAL 0.6 mg/dL (0.2-1.0); BLOOD UREA NITROGEN 31 mg/dL (7-18); CALCIUM 8.4 mg/dL (8.5-10.1); CO2 27 mmol/L (21-32); CREATININE 1.4 mg/dL (0.7-1.3); GLUCOSE,RANDOM 123 mg/dL (74-106); LDH 179 U/L (87-241); SGOT/AST 12 U/L (15-37); SGPT/ALT 15 U/L (12-78)
[2017-08-30] MEDS ORDERED: PIPERACILLIN/TAZOBACTAM 3.375 GM VIAL IVPB ONE ×2 (10:27→17:18)
[2017-08-30] MEDS ORDERED: DEXTROSE 5%-WATER - 50 ML IVPB ONE ×2 (10:27→17:18)
[2017-08-30] MEDS: CLOPIDOGREL BISULFATE 75 MG TABLET (FP) PO SCH (10:36)
[2017-08-30] MEDS: PANTOPRAZOLE 40 MG TABLET (FP) PO SCH (10:36)
[2017-08-30] MEDS: ASPIRIN COATED 81 MG TABLET.EC PO SCH (10:36)
[2017-08-30] MEDS: FUROSEMIDE 20 MG TABLET (FP) PO SCH (10:37)
[2017-08-30] MEDS: CITALOPRAM HYDROBROMIDE 10 MG TABLET (FP) PO SCH (10:37)
[2017-08-30] MEDS: METOPROLOL TARTRATE 50 MG TABLET (FP) PO SCH (10:37)
--- NOTE | 2017-08-30 11:43 | PN ---
Progress Note, Physician - Current Medication List Current Medications: Active Medications Aspirin (Ecotrin -) 81 mg PO DAILY [facility] Last Admin: 08/30/17 10:36 Dose: 81 mg Citalopram Hydrobromide (Celexa -) 10 mg PO DAILY [facility] Last Admin: 08/30/17 10:37 Dose: 10 mg Clopidogrel Bisulfate (Plavix -) 75 mg PO DAILY [facility] Last Admin: 08/30/17 10:36 Dose: 75 mg Ergocalciferol (Drisdol -) 50,000 unit PO Q7D@1000 [facility] Furosemide (Lasix -) 20 mg PO DAILY [facility] Last Admin: 08/30/17 10:37 Dose: 20 mg Piperacillin Sod/Tazobactam (Sod 3.375 gm/ Dextrose) 50 mls @ 100 mls/hr IVPB Q8H-IV [facility]; Protocol Last Admin: 08/30/17 10:37 Dose: 100 mls/hr Insulin Aspart (Novolog Vial Sliding Scale -) 1 vial SQ ACHS [facility]; Protocol Last Admin: 08/30/17 06:10 Dose: Not Given Insulin Detemir (Levemir Vial) 20 units SQ BID@0700,2200 [facility] Last Admin: 08/30/17 06:10 Dose: Not Given Metoprolol Tartrate (Lopressor -) 50 mg PO BID [facility] Last Admin: 08/30/17 10:37 Dose: 50 mg Pantoprazole Sodium (Protonix -) 40 mg PO DAILY [facility] Last Admin: 08/30/17 10:36 Dose: 40 mg Warfarin Sodium (Coumadin -) 2 mg PO DAILY@1800 [facility] Last Admin: 08/29/17 18:41 Dose: 2 mg - Objective Vital Signs: Vital Signs Temperature 98.4 F 08/30/17 06:00 Pulse Rate 95 H 08/30/17 06:00 Respiratory Rate 20 08/30/17 06:00 Blood Pressure 110/66 08/30/17 06:00 O2 Sat by Pulse Oximetry (%) 98 08/29/17 21:00 Cardiovascular: Yes: S1, S2 Respiratory: Yes: Regular, CTA Bilaterally Gastrointestinal: Yes: Normal Bowel Sounds, Soft Labs: CBC, BMP 08/30/17 05:50 08/30/17 05:50 INR, PTT INR 2.16 (0.82-1.09) H 07/19/18 05:30 Problem List - Problems (1) Sepsis due to urinary tract infection Assessment/Plan: - and sepsis secondary to UTI - multiple resistances on previous urine c/s 03/05/15 - given IVF in ED, appears euvolemic at present, no further IVF - urine culture resent as not received by micro in computer - urology consult -ID consult--abx per id Code(s): A41.9 - SEPSIS, UNSPECIFIED ORGANISM; N39.0 - URINARY TRACT INFECTION, SITE NOT SPECIFIED (2) Metastasis Assessment/Plan: -Oncology consult noted -possible biopsy Code(s): C79.9 - SECONDARY MALIGNANT NEOPLASM OF UNSPECIFIED SITE (3) Bladder cancer Assessment/Plan: -Bladder CA with probable liver and lung metastases - will need oncology consult - urology consult Code(s): C67.9 - MALIGNANT NEOPLASM OF BLADDER, UNSPECIFIED (4) Atrial fibrillation Assessment/Plan: - rate now controlled. Cont home metoprolol - trend trop to r/o ischemic event as trigger, likely sepsis as trigger - monitor hr, increase metoprolol dose if elevated and BP tolerating - cont home warfarin, INR therapeutic - cardiology consult Code(s): I48.91 - UNSPECIFIED ATRIAL FIBRILLATION Qualifiers: Atrial fibrillation type: unspecified Qualified Code(s): I48.91 - Unspecified atrial fibrillation (5) CAD (coronary artery disease) Assessment/Plan: -CAD s/p stent placement one month ago - cont ASA and plavix, cont lopressor Code(s): I25.10 - ATHSCL HEART DISEASE OF [place] CORONARY ARTERY W/O ANG PCTRS (6) Renal dysfunction Code(s): N28.9 - DISORDER OF KIDNEY AND URETER, UNSPECIFIED (7) Diabetes Assessment/Plan: - hold home tadjenta - home basaglar 60u qAM changed to formulary levemir 30BID - BGM AC/HS with novolog sliding scale Code(s): E11.9 - TYPE 2 DIABETES MELLITUS WITHOUT COMPLICATIONS (8) CHF (congestive heart failure) Assessment/Plan: - cont lifevest - cont home lopressor, lasix Code(s): I50.9 - HEART FAILURE, UNSPECIFIED
--- NOTE | 2017-08-30 12:02 | CON.CARD ---
Consult Consult Specialty:: Cardiology for Drs. Michelle and Jenny Referred by:: Parminder Yang Reason for Consultation:: Afib, cardiomyopathy - History of Present Illness Chief Complaint: Flank and back pain History of Present Illness: 66y M hx of bladder ca with ileal conduit, htn, dm, afib on coumadin, CAD s/p recent PCI 1 month ago, cardiomyopathy on Lifevest admitted with flank pain and back pain and currently he is being treated for suspected UTI/ pyelonephritis with zosyn. A CTA/P shows extensive metastatic disease in the lungs, RP nodes and the liver. He denies chest pain, dyspnea, palpitations, near or true syncope , orthopnea, PND or LE edema. - History Source History Provided By: Patient, Caregiver - Past Medical History Cardio/Vascular: Yes: AFIB, CAD, HTN, Hyperlipdemia Pulmonary: Yes: Sleep Apnea (rule out) Renal/: Yes: Renal Inusuff, Cancer (bladder) Endocrine: Yes: Diabetes Mellitus - Past Surgical History Past Surgical History: Yes: Stent - Alcohol/Substance Use Hx Alcohol Use: No History of Substance Use: reports: None - Smoking History Smoking history: Never smoked Have you smoked in the past 12 months: No Aproximately how many cigarettes per day: 0 - Social History ADL: Independent History of Recent Travel: Yes ([place]) Home Medications - Allergies Allergies/Adverse Reactions: Allergies Allergy/AdvReac Type Severity Reaction Status Date / Time No Known Allergies Allergy Verified 08/25/17 10:07 - Home Medications Home Medications: Ambulatory Orders Aspirin [Aspirin EC] 81 mg PO DAILY 08/25/17 Citalopram Hydrobromide [Citalopram HBr] 10 mg PO DAILY 08/25/17 Clopidogrel Bisulfate [Plavix] 75 mg PO DAILY 08/25/17 Ergocalciferol (Vitamin D2) [Drisdol] 1.25 mg PO WEEKLY 08/25/17 Furosemide [Lasix] 20 mg PO DAILY 08/25/17 Insulin Aspart [Novolog] 2 unit SQ ASDIR PRN 08/25/17 Insulin Glargine,Hum.rec.anlog [Basaglar Kwikpen U-100] 60 unit SQ DAILY Linagliptin [Tradjenta] 5 mg PO DAILY 08/25/17 Metoprolol Tartrate [Lopressor -] 50 mg PO BID 08/25/17 Oxycodone HCl/Acetaminophen [Endocet 5-325 Tablet] 1 each PO Q6H PRN 08/25/17 Pantoprazole Sodium [Protonix] 40 mg PO DAILY 08/25/17 Warfarin Na [Coumadin] 2 mg PO DAILY 08/25/17 Review of Systems - Review of Systems Genitourinary: reports: Flank Pain Vital Signs: Vital Signs Temperature 98.4 F 08/30/17 06:00 Pulse Rate 95 H 08/30/17 06:00 Respiratory Rate 20 08/30/17 06:00 Blood Pressure 110/66 08/30/17 06:00 O2 Sat by Pulse Oximetry (%) 98 08/29/17 21:00 Constitutional: Yes: No Distress, Calm Neck: Yes: Supple Respiratory: Yes: Regular Gastrointestinal: Yes: Normal Bowel Sounds, Soft Cardiovascular: Yes: Pulse Irregular JVD: No Carotid Bruit: No Heart Sounds: Yes: S1, S2 Murmur: Yes: Systolic Murmur, Grade 2 Edema: No - Other Data Labs, Other Data: CBC, BMP 08/30/17 05:50 08/30/17 05:50 INR, PTT INR 2.16 (0.82-1.09) H 08/27/17 05:30 Afib @ 110 Echo: Report Reviewed Prior Cardiac Procedures: PTCA with Stent Ejection Fraction %: LVEF < 40 % Imaging - Results Cat Scan: Report Reviewed (CT abd/pelvis IMPRESSION: 1. Multiple, bilateral pulmonary masses strongly suspicious for metastatic disease. 2. A few small hepatic masses, also suspicious for metastases. 3. S/P cystectomy with right lower quadrant ileal conduit. 4. Mild right-sided hydronephrosis. 5. Moderate retroperitoneal lymphadenopathy, right greater than left. Clinical correlation and follow-up recommended. Please see above discussion. 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 (5) 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 Code(s): C67.9 - MALIGNANT NEOPLASM OF BLADDER, UNSPECIFIED; C78.7 - SECONDARY MALIG NEOPLASM OF LIVER AND INTRAHEPATIC BILE DUCT (6) Sepsis due to urinary tract infection Code(s): A41.9 - SEPSIS, UNSPECIFIED ORGANISM; N39.0 - URINARY TRACT INFECTION, SITE NOT SPECIFIED (7) Atrial fibrillation Code(s): I48.91 - UNSPECIFIED ATRIAL FIBRILLATION Qualifiers: Atrial fibrillation type: persistent Qualified Code(s): I48.1 - Persistent atrial fibrillation (8) CAD (coronary artery disease) Code(s): I25.10 - ATHSCL HEART DISEASE OF [place] CORONARY ARTERY W/O ANG PCTRS Qualifiers: Coronary Disease-Associated Artery/Lesion type: [place] artery [place] vs. transplanted heart: [place] heart Associated angina: without angina Qualified Code(s): I25.10 - Atherosclerotic heart disease of [place] coronary artery without angina pectoris (9) Hypertension Code(s): I10 - ESSENTIAL (PRIMARY) HYPERTENSION Qualifiers: Hypertension type: essential hypertension Qualified Code(s): I10 - Essential (primary) hypertension Assessment/Plan July 02, 2017 Echo: Normal LV size with moderate-severely decreased LV fxn mod dilated RV with decreased RV fxn, mild NICA, mod MR, TR Stress MIBI done 12/2016: no evidence of ischemia 1. Enterococcal/E. coli complicated UTI 2. Metastatic Bladder CA to lung and liver with ileostomy 3. CAD s/p recent PCI at [facility] 4. AFIB on coumadin with therapeutic INR 5. Cardiomyopathy on Lifevest pending reassessment of LV fxn post- revascularization, euvolemic 6. Acute on CKD with right hydronephrosis improving P: 1. Continue current antibiotic regimen per C&S 2. Oncology recommends retroperitoneal LN biopsy by IR, coumadin held prior to procedure 3. Review cath report from [facility], if LIDIA then would hesitate to d/c Plavix for at least 6 months post-procedure 4. Continue Plavix 75 qd, consider d/c ASA 81 qd while on coumadin after review of cath report, change Lasix 20 qd to aldactone 25 qd, change Lopressor 50 bid to Toprol XL 50 qd, ISAC-I/ARB once renal fxn stabilizes all with uptitration as hemodynamics tolerate 5. 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 Thank you for consultative opportunity
--- NOTE | 2017-08-30 14:29 | PN ---
Progress Note, Physician History of Present Illness: Pt states he feels well, remains afebrile. No specific complaints. - Current Medication List Current Medications: Active Medications Aspirin (Ecotrin -) 81 mg PO DAILY [facility] Last Admin: 08/30/17 10:36 Dose: 81 mg Citalopram Hydrobromide (Celexa -) 10 mg PO DAILY [facility] Last Admin: 08/30/17 10:37 Dose: 10 mg Clopidogrel Bisulfate (Plavix -) 75 mg PO DAILY [facility] Last Admin: 08/30/17 10:36 Dose: 75 mg Ergocalciferol (Drisdol -) 50,000 unit PO Q7D@1000 [facility] Furosemide (Lasix -) 20 mg PO DAILY [facility] Last Admin: 08/30/17 10:37 Dose: 20 mg Piperacillin Sod/Tazobactam (Sod 3.375 gm/ Dextrose) 50 mls @ 100 mls/hr IVPB Q8H-IV [facility]; Protocol Last Admin: 08/30/17 10:37 Dose: 100 mls/hr Insulin Aspart (Novolog Vial Sliding Scale -) 1 vial SQ ACHS [facility]; Protocol Last Admin: 08/30/17 12:33 Dose: 2 units Insulin Detemir (Levemir Vial) 20 units SQ BID@0700,2200 [facility] Last Admin: 08/30/17 06:10 Dose: Not Given Metoprolol Tartrate (Lopressor -) 50 mg PO BID [facility] Last Admin: 08/30/17 10:37 Dose: 50 mg Pantoprazole Sodium (Protonix -) 40 mg PO DAILY [facility] Last Admin: 08/30/17 10:36 Dose: 40 mg Warfarin Sodium (Coumadin -) 2 mg PO DAILY@1800 [facility] Last Admin: 08/29/17 18:41 Dose: 2 mg - Objective Vital Signs: Vital Signs Temperature 98.4 F 08/30/17 06:00 Pulse Rate 95 H 08/30/17 06:00 Respiratory Rate 20 08/30/17 06:00 Blood Pressure 110/66 08/30/17 06:00 O2 Sat by Pulse Oximetry (%) 98 08/29/17 21:00 Constitutional: Yes: No Distress, Calm Cardiovascular: Yes: Regular Rate and Rhythm Respiratory: Yes: Regular Gastrointestinal: Yes: Normal Bowel Sounds, Soft Genitourinary: Yes: Other (ostomy with clear, yellow urine) Extremities: Yes: WNL Neurological: Yes: Alert Labs: CBC, BMP 08/30/17 05:50 08/30/17 05:50 INR, PTT INR 2.16 (0.82-1.09) H 08/27/17 05:30 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 Code(s): C67.9 - MALIGNANT NEOPLASM OF BLADDER, UNSPECIFIED; C78.7 - SECONDARY MALIG NEOPLASM OF LIVER AND INTRAHEPATIC BILE DUCT (3) Diabetes Code(s): E11.9 - TYPE 2 DIABETES MELLITUS WITHOUT COMPLICATIONS (4) Sepsis due to urinary tract infection Code(s): A41.9 - SEPSIS, UNSPECIFIED ORGANISM; N39.0 - URINARY TRACT INFECTION, SITE NOT SPECIFIED (5) Atrial fibrillation with rapid ventricular response Code(s): I48.91 - UNSPECIFIED ATRIAL FIBRILLATION (6) CAD (coronary artery disease) Code(s): I25.10 - ATHSCL HEART DISEASE OF [place] CORONARY ARTERY W/O ANG PCTRS (7) Hematuria Code(s): R31.9 - HEMATURIA, UNSPECIFIED Assessment/Plan Enterococcal/E. coli complicated UTI Metastatic Bladder CA with ileostomy DM CAD AFIB - cont. Zosyn - pt afebrile without leukocytosis cont. monitor
[2017-08-30] MEDS ORDERED: PT OWN MED DRAWER 7, Y5N ONE (17:17)
[2017-08-31] MEDS ORDERED: oxyCODONE HCL 5 MG TABLET PO ONE (00:12)
[2017-08-31] MEDS ORDERED: PIPERACILLIN/TAZOBACTAM 3.375 GM VIAL IVPB ONE ×3 (00:56→16:25)
[2017-08-31] MEDS ORDERED: DEXTROSE 5%-WATER - 50 ML IVPB ONE ×3 (00:56→16:25)
[2017-08-31] MEDS: PIPERACILLIN/TAZOB 3.375 GM 3.375 GM in DEXTROSE 5%-WATER - 50 ML IVPB SCH ×3 (01:47→17:11)
[2017-08-31] MEDS: INSULIN (LEVEMIR) 100 UNITS/ML UNITS SQ SCH ×2 (06:02→21:21)
[2017-08-31] MEDS: INSULIN SLIDING SCALE (NOVOLOG) 1 VIAL SQ SCH ×4 (06:03→21:19)
[2017-08-31 06:56] LABS: INR 1.96 (0.82-1.09); PROTHROMBIN TIME (PATIENT) 22.2 SEC (9.7-13.0)
[2017-08-31] MEDS: ASPIRIN COATED 81 MG TABLET.EC PO SCH (09:13)
[2017-08-31] MEDS: CLOPIDOGREL BISULFATE 75 MG TABLET (FP) PO SCH (09:13)
[2017-08-31] MEDS: CITALOPRAM HYDROBROMIDE 10 MG TABLET (FP) PO SCH (09:13)
[2017-08-31] MEDS: PANTOPRAZOLE 40 MG TABLET (FP) PO SCH (09:13)
[2017-08-31] MEDS: SPIRONOLACTONE 25 MG TABLET (FP) PO SCH (09:14)
--- NOTE | 2017-08-31 09:52 | PN ---
Progress Note, Physician History of Present Illness: 66y M hx of bladder ca with ileal conduit, htn, dm, afib on coumadin, CAD s/p recent PCI 1 month ago, cardiomyopathy on Lifevest admitted with flank pain and back pain and currently he is being treated for suspected UTI/ pyelonephritis with zosyn. A CTA/P shows extensive metastatic disease in the lungs, RP nodes and the liver. He denies chest pain, dyspnea, palpitations, near or true syncope , orthopnea, PND or LE edema. - Current Medication List Current Medications: Active Medications Aspirin (Ecotrin -) 81 mg PO DAILY [facility] Last Admin: 08/31/17 09:13 Dose: 81 mg Citalopram Hydrobromide (Celexa -) 10 mg PO DAILY [facility] Last Admin: 08/31/17 09:13 Dose: 10 mg Clopidogrel Bisulfate (Plavix -) 75 mg PO DAILY [facility] Last Admin: 08/31/17 09:13 Dose: 75 mg Ergocalciferol (Drisdol -) 50,000 unit PO Q7D@1000 [facility] Piperacillin Sod/Tazobactam (Sod 3.375 gm/ Dextrose) 50 mls @ 100 mls/hr IVPB Q8H-IV [facility]; Protocol Last Admin: 08/31/17 09:11 Dose: 100 mls/hr Insulin Aspart (Novolog Vial Sliding Scale -) 1 vial SQ ACHS [facility]; Protocol Last Admin: 08/31/17 06:03 Dose: Not Given Insulin Detemir (Levemir Vial) 20 units SQ BID@0700,2200 [facility] Last Admin: 08/31/17 06:02 Dose: Not Given Metoprolol Succinate (Toprol Xl -) 50 mg PO DAILY [facility] Last Admin: 08/31/17 09:13 Dose: 50 mg Pantoprazole Sodium (Protonix -) 40 mg PO DAILY [facility] Last Admin: 08/31/17 09:13 Dose: 40 mg Spironolactone (Aldactone -) 25 mg PO DAILY [facility] Last Admin: 08/31/17 09:14 Dose: 25 mg - Objective Vital Signs: Vital Signs Temperature 98.4 F 08/31/17 05:47 Pulse Rate 71 08/31/17 05:47 Respiratory Rate 20 08/31/17 05:47 Blood Pressure 137/70 08/31/17 05:47 O2 Sat by Pulse Oximetry (%) 98 08/29/17 21:00 Eyes: Yes: WNL, Conjunctiva Clear, EOM Intact HENT: Yes: WNL, Atraumatic, Normocephalic Neck: Yes: WNL, Supple, Trachea Midline Cardiovascular: Yes: WNL, Regular Rate and Rhythm Respiratory: Yes: WNL, Regular, CTA Bilaterally Gastrointestinal: Yes: WNL, Normal Bowel Sounds Genitourinary: Yes: WNL Musculoskeletal: Yes: WNL Extremities: Yes: WNL Edema: No Integumentary: Yes: WNL Neurological: Yes: WNL, Alert, Oriented ...Motor Strength: WNL Psychiatric: Yes: WNL Labs: CBC, BMP 08/30/17 05:50 08/30/17 05:50 INR, PTT INR 1.96 (0.82-1.09) H 08/31/17 05:30 Assessment/Plan July 02, 2017 Echo: Normal LV size with moderate-severely decreased LV fxn mod dilated RV with decreased RV fxn, mild NICA, mod MR, TR Stress MIBI done 12/2016: no evidence of ischemia 1. Enterococcal/E. coli complicated UTI 2. Metastatic Bladder CA to lung and liver with ileostomy 3. CAD s/p LIDIA mRCA July 03 [facility] 4. AFIB on coumadin with therapeutic INR 5. Cardiomyopathy on Lifevest pending reassessment of LV fxn post- revascularization, euvolemic 6. Acute on CKD with right hydronephrosis improving P: 1. Continue current antibiotic regimen per C&S 2. Oncology recommends retroperitoneal LN biopsy by IR, coumadin held prior to procedure 3 Continue Plavix 75 qd, ASA 81 qd while on coumadin after review of cath report , change Lasix 20 qd to aldactone 25 qd, change Lopressor 50 bid to Toprol XL 50 qd, ISAC-I/ARB once renal fxn stabilizes all with uptitration as hemodynamics tolerate 5. 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
--- NOTE | 2017-08-31 12:47 | PN ---
Progress Note, Physician History of Present Illness: Pt seen and examined at bedside. He denies fevers or chills. - Current Medication List Current Medications: Active Medications Aspirin (Ecotrin -) 81 mg PO DAILY [facility] Last Admin: 08/31/17 09:13 Dose: 81 mg Citalopram Hydrobromide (Celexa -) 10 mg PO DAILY [facility] Last Admin: 08/31/17 09:13 Dose: 10 mg Clopidogrel Bisulfate (Plavix -) 75 mg PO DAILY [facility] Last Admin: 08/31/17 09:13 Dose: 75 mg Ergocalciferol (Drisdol -) 50,000 unit PO Q7D@1000 [facility] Piperacillin Sod/Tazobactam (Sod 3.375 gm/ Dextrose) 50 mls @ 100 mls/hr IVPB Q8H-IV [facility]; Protocol Last Admin: 08/31/17 09:11 Dose: 100 mls/hr Insulin Aspart (Novolog Vial Sliding Scale -) 1 vial SQ ACHS [facility]; Protocol Last Admin: 08/31/17 12:18 Dose: 2 units Insulin Detemir (Levemir Vial) 20 units SQ BID@0700,2200 [facility] Last Admin: 08/31/17 06:02 Dose: Not Given Metoprolol Succinate (Toprol Xl -) 50 mg PO DAILY [facility] Last Admin: 08/31/17 09:13 Dose: 50 mg Pantoprazole Sodium (Protonix -) 40 mg PO DAILY [facility] Last Admin: 08/31/17 09:13 Dose: 40 mg Spironolactone (Aldactone -) 25 mg PO DAILY [facility] Last Admin: 08/31/17 09:14 Dose: 25 mg - Objective Vital Signs: Vital Signs Temperature 97.8 F 08/31/17 10:00 Pulse Rate 80 08/31/17 10:00 Respiratory Rate 18 08/31/17 10:00 Blood Pressure 136/78 08/31/17 10:00 O2 Sat by Pulse Oximetry (%) 98 08/29/17 21:00 Constitutional: Yes: Calm Eyes: Yes: Conjunctiva Clear HENT: Yes: Atraumatic Cardiovascular: Yes: S1, S2 Respiratory: Yes: CTA Bilaterally Gastrointestinal: Yes: Normal Bowel Sounds, Soft Genitourinary: Yes: Other (ileal conduit) Musculoskeletal: Yes: WNL Edema: No Neurological: Yes: Oriented Psychiatric: Yes: Oriented Labs: CBC, BMP 07/22/18 05:50 08/30/17 05:50 INR, PTT INR 1.96 (0.82-1.09) H 08/31/17 05:30 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 (2) Atrial fibrillation Code(s): I48.91 - UNSPECIFIED ATRIAL FIBRILLATION Qualifiers: Atrial fibrillation type: persistent Qualified Code(s): I48.1 - Persistent atrial fibrillation (3) Hyperlipidemia Code(s): E78.5 - HYPERLIPIDEMIA, UNSPECIFIED Qualifiers: Hyperlipidemia type: pure hypercholesterolemia Qualified Code(s): E78.00 - Pure hypercholesterolemia, unspecified; E78.0 - Pure hypercholesterolemia Assessment/Plan Current Medications Generic Name Dose Route Start Last Admin Trade Name Freq PRN Reason Stop Dose Admin Aspirin 81 mg 08/26/17 10:00 08/31/17 09:13 Ecotrin - PO 81 mg DAILY [facility] Administration Citalopram Hydrobromide 10 mg 08/26/17 10:00 08/31/17 09:13 Celexa - PO 10 mg DAILY [facility] Administration Clopidogrel Bisulfate 75 mg 08/26/17 10:00 08/31/17 09:13 Plavix - PO 75 mg DAILY [facility] Administration Ergocalciferol 50,000 unit 09/01/17 10:00 Drisdol - PO Q7D@1000 [facility] Piperacillin Sod/Tazobactam 50 mls @ 100 mls/hr 08/27/17 19:00 08/31/17 09:11 Sod 3.375 gm/ Dextrose IVPB 100 mls/hr Q8H-IV [facility] Administration Protocol Insulin Aspart 1 vial 08/26/17 07:00 08/31/17 12:18 Novolog Vial Sliding Scale - SQ 2 units ACHS [facility] Administration Protocol Insulin Detemir 20 units 08/29/17 21:37 08/31/17 06:02 Levemir Vial SQ Not Given BID@0700,2200 [facility] Metoprolol Succinate 50 mg 08/31/17 10:00 08/31/17 09:13 Toprol Xl - PO 50 mg DAILY [facility] Administration Pantoprazole Sodium 40 mg 08/26/17 10:00 08/31/17 09:13 Protonix - PO 40 mg DAILY [facility] Administration Spironolactone 25 mg 08/31/17 10:00 08/31/17 09:14 Aldactone - PO 25 mg DAILY [facility] Administration Impression 1. CKD 2. right hydro 3. a-fib 4. DM 5. HTN 6. hx bladder cancer 7. bladder cancer Plan - check bmp and monitor renal function - follow up echo - abx per ID - pt will need ckd workup - avoid nsaids Dr Baltazar
--- NOTE | 2017-08-31 14:23 | ECHO ---
Name: MIRTA HANDY Exam:Adult Echocardiogram Study Date: 08/31/2017 12:29 PM Age: 66 yrs Reason For Study: LVEF Height: 66 in Weight: 210 lb BSA: 2.0 m2 MMode/2D Measurements & Calculations IVSd: 1.0 cm Ao root diam: 2.9 cm LVIDd: 5.7 cm LA dimension: 3.9 cm LVIDs: 3.6 cm LVPWd: 1.0 cm EDV(Teich): 161.0 ml ESV(Teich): 55.3 ml Doppler Measurements & Calculations MV E max tanner: 45.4 cm/sec MR max tanner: 277.6 cm/sec MV A max tanner: 66.6 cm/sec MR max P.8 mmHg MV E/A: 0.68 TR max tanner: 203.3 cm/sec Med Peak E' Tanner: 5.4 cm/sec TR max P.6 mmHg Med E/e': 8.5 Lat Peak E' Tanner: 6.5 cm/sec Lat E/e': 7.0 Procedure A two-dimensional transthoracic echocardiogram with color flow and Doppler was performed. The study w as technically difficult with many images being suboptimal in quality. Left Ventricle The left ventricle is mildly dilated. Left ventricular systolic function is mildly reduced. E/A rever anastasia consistent with but not diagnostic of poor LV compliance. Septal motion is consistent with conduction abnormality. Regional wall motion abnormalities cannot be excluded due to limited visualization. Right Ventricle The right ventricle is normal in size and function. Atria The left atrium is borderline dilated. The right atrium is borderline dilated. Mitral Valve There is mild mitral valve thickening. There is no mitral valve stenosis. There is mild to moderate m itral regurgitation. The mitral regurgitant jet is eccentrically directed. Tricuspid Valve There is mild tricuspid valve thickening. There is no tricuspid stenosis. There is mild tricuspid regurgitation. Right ventricular systolic pressure is normal. Aortic Valve The aortic valve is normal in structure and function. There is mild aortic valve thickening. No hemodynamically significant valvular aortic stenosis. No aortic regurgitation is present. Pulmonic Valve The pulmonic valve is not well visualized. There is no pulmonic valvular stenosis. Trace pulmonic maggie vular regurgitation. Great Vessels The aortic root is normal size. Pericardium/Pleura There is no pericardial effusion. Interpretation Summary The left ventricle is mildly dilated. Septal motion is consistent with conduction abnormality. The left atrium is borderline dilated. The right atrium is borderline dilated. Trace pulmonic valvular regurgitation. There is mild to moderate mitral regurgitation. The mitral regurgitant jet is eccentrically directed. The study was technically difficult with many images being suboptimal in quality. Regional wall motion abnormalities cannot be excluded due to limited visualization. E/A reversal consistent with but not diagnostic of poor LV compliance There is mild tricuspid regurgitation. Right ventricular systolic pressure is normal. MD Grant Michelle 08/31/2017 02:22 PM
--- NOTE | 2017-08-31 16:20 | PN ---
Progress Note, Physician Chief Complaint: AWAKE ALERT /C/O RIGHT HIP PAIN - Current Medication List Current Medications: Active Medications Aspirin (Ecotrin -) 81 mg PO DAILY [facility] Last Admin: 08/31/17 09:13 Dose: 81 mg Citalopram Hydrobromide (Celexa -) 10 mg PO DAILY [facility] Last Admin: 08/31/17 09:13 Dose: 10 mg Clopidogrel Bisulfate (Plavix -) 75 mg PO DAILY [facility] Last Admin: 08/31/17 09:13 Dose: 75 mg Ergocalciferol (Drisdol -) 50,000 unit PO Q7D@1000 [facility] Piperacillin Sod/Tazobactam (Sod 3.375 gm/ Dextrose) 50 mls @ 100 mls/hr IVPB Q8H-IV [facility]; Protocol Last Admin: 08/31/17 09:11 Dose: 100 mls/hr Insulin Aspart (Novolog Vial Sliding Scale -) 1 vial SQ ACHS [facility]; Protocol Last Admin: 08/31/17 12:18 Dose: 2 units Insulin Detemir (Levemir Vial) 20 units SQ BID@0700,2200 [facility] Last Admin: 08/31/17 06:02 Dose: Not Given Metoprolol Succinate (Toprol Xl -) 50 mg PO DAILY [facility] Last Admin: 08/31/17 09:13 Dose: 50 mg Pantoprazole Sodium (Protonix -) 40 mg PO DAILY [facility] Last Admin: 08/31/17 09:13 Dose: 40 mg Spironolactone (Aldactone -) 25 mg PO DAILY [facility] Last Admin: 08/31/17 09:14 Dose: 25 mg - Objective Vital Signs: Vital Signs Temperature 984 F H 08/31/17 15:00 Pulse Rate 82 08/31/17 15:00 Respiratory Rate 18 08/31/17 15:00 Blood Pressure 99/69 08/31/17 15:00 O2 Sat by Pulse Oximetry (%) 98 08/31/17 09:00 Constitutional: Yes: Mild Distress Eyes: Yes: WNL HENT: Yes: WNL Neck: Yes: WNL Cardiovascular: Yes: Pulse Irregular Respiratory: Yes: WNL Gastrointestinal: Yes: WNL, Tenderness, Other Genitourinary: Yes: Incontinence Musculoskeletal: Yes: Muscle Weakness Extremities: Yes: WNL Edema: Yes Edema: LLE: Trace, RLE: Trace Peripheral Pulses WNL: Yes Integumentary: Yes: Other Wound/Incision: Yes: Other Neurological: Yes: Pre-Existing Deficit ...Motor Strength: LLE, RLE Psychiatric: Yes: WNL Labs: CBC, BMP 08/30/17 05:50 08/30/17 05:50 INR, PTT INR 1.96 (0.82-1.09) H 08/31/17 05:30 Problem List - Problems (1) Sepsis due to urinary tract infection Code(s): A41.9 - SEPSIS, UNSPECIFIED ORGANISM; N39.0 - URINARY TRACT INFECTION, SITE NOT SPECIFIED (2) 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 (3) 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 Code(s): C67.9 - MALIGNANT NEOPLASM OF BLADDER, UNSPECIFIED; C78.7 - SECONDARY MALIG NEOPLASM OF LIVER AND INTRAHEPATIC BILE DUCT (4) Atrial fibrillation Code(s): I48.91 - UNSPECIFIED ATRIAL FIBRILLATION Qualifiers: Atrial fibrillation type: persistent Qualified Code(s): I48.1 - Persistent atrial fibrillation (5) Atrial fibrillation with rapid ventricular response Code(s): I48.91 - UNSPECIFIED ATRIAL FIBRILLATION (6) CAD (coronary artery disease) Code(s): I25.10 - ATHSCL HEART DISEASE OF [place] CORONARY ARTERY W/O ANG PCTRS Qualifiers: Coronary Disease-Associated Artery/Lesion type: [place] artery [place] vs. transplanted heart: [place] heart Associated angina: without angina Qualified Code(s): I25.10 - Atherosclerotic heart disease of [place] coronary artery without angina pectoris (7) Hematuria Code(s): R31.9 - HEMATURIA, UNSPECIFIED Assessment/Plan IV ABX PER ID NOW ON ZOSYN XRAYS HIPS OXYCODONE INCREASED 10MG Q 6HRS PT EVAL WORKUP
[2017-08-31] MEDS: oxyCODONE HCL 5 MG TABLET PO PRN (17:03)
--- NOTE | 2017-08-31 17:55 | PN ---
Progress Note, Physician History of Present Illness: doing well no complaints all cx result noted sensitivities noted - Current Medication List Current Medications: Active Medications Acetaminophen (Tylenol -) 650 mg PO Q6H PRN PRN Reason: PAIN LEVEL 1-6 Aspirin (Ecotrin -) 81 mg PO DAILY [facility] Last Admin: 08/31/17 09:13 Dose: 81 mg Citalopram Hydrobromide (Celexa -) 10 mg PO DAILY [facility] Last Admin: 08/31/17 09:13 Dose: 10 mg Clopidogrel Bisulfate (Plavix -) 75 mg PO DAILY [facility] Last Admin: 08/31/17 09:13 Dose: 75 mg Docusate Sodium (Colace -) 300 mg PO HS [facility] Ergocalciferol (Drisdol -) 50,000 unit PO Q7D@1000 [facility] Piperacillin Sod/Tazobactam (Sod 3.375 gm/ Dextrose) 50 mls @ 100 mls/hr IVPB Q8H-IV [facility]; Protocol Last Admin: 08/31/17 17:11 Dose: 100 mls/hr Insulin Aspart (Novolog Vial Sliding Scale -) 1 vial SQ ACHS [facility]; Protocol Last Admin: 08/31/17 17:11 Dose: Not Given Insulin Detemir (Levemir Vial) 20 units SQ BID@0700,2200 [facility] Last Admin: 08/31/17 06:02 Dose: Not Given Metoprolol Succinate (Toprol Xl -) 50 mg PO DAILY [facility] Last Admin: 08/31/17 09:13 Dose: 50 mg Oxycodone HCl (Roxicodone -) 10 mg PO Q6H PRN PRN Reason: PAIN LEVEL 7 - 10 Last Admin: 08/31/17 17:03 Dose: 10 mg Pantoprazole Sodium (Protonix -) 40 mg PO DAILY [facility] Last Admin: 08/31/17 09:13 Dose: 40 mg Spironolactone (Aldactone -) 25 mg PO DAILY [facility] Last Admin: 08/31/17 09:14 Dose: 25 mg - Objective Vital Signs: Vital Signs Temperature 984 F H 08/31/17 15:00 Pulse Rate 82 08/31/17 15:00 Respiratory Rate 18 08/31/17 15:00 Blood Pressure 99/69 08/31/17 15:00 O2 Sat by Pulse Oximetry (%) 98 08/31/17 09:00 Constitutional: Yes: No Distress, Calm Cardiovascular: Yes: Regular Rate and Rhythm Respiratory: Yes: Regular, CTA Bilaterally Gastrointestinal: Yes: Other (urosotmy in place) Musculoskeletal: Yes: WNL Extremities: Yes: WNL Neurological: Yes: Alert, Oriented Psychiatric: Yes: Alert, Oriented Labs: CBC, BMP 08/30/17 05:50 08/30/17 05:50 INR, PTT INR 1.96 (0.82-1.09) H 08/31/17 05:30 Assessment/Plan Problem List - Problems (1) Sepsis due to urinary tract infection Code(s): A41.9 - SEPSIS, UNSPECIFIED ORGANISM; N39.0 - URINARY TRACT INFECTION, SITE NOT SPECIFIED (2) 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 (3) 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 Code(s): C67.9 - MALIGNANT NEOPLASM OF BLADDER, UNSPECIFIED; C78.7 - SECONDARY MALIG NEOPLASM OF LIVER AND INTRAHEPATIC BILE DUCT (4) Atrial fibrillation Code(s): I48.91 - UNSPECIFIED ATRIAL FIBRILLATION Qualifiers: Atrial fibrillation type: unspecified Qualified Code(s): I48.91 - Unspecified atrial fibrillation (5) Atrial fibrillation with rapid ventricular response Code(s): I48.91 - UNSPECIFIED ATRIAL FIBRILLATION (6) CAD (coronary artery disease) Code(s): I25.10 - ATHSCL HEART DISEASE OF [place] CORONARY ARTERY W/O ANG PCTRS (7) Hematuria Code(s): R31.9 - HEMATURIA, UNSPECIFIED plan continue zosyn rest continue as per the team patient stable monitor for fevers
[2017-08-31] MEDS: DOCUSATE SODIUM 100 MG CAPSULE (FP) PO SCH (21:18)
--- NOTE | 2017-08-31 21:59 | PN ---
Progress Note (short form) - Note Progress Note: PAtient seen and examined Denies any complaints AFVSS Cor: RSR, No murmurs, No gallops Lungs: Clear to P&A Abd: Soft, Normal bowel sounds, No organomegaly Ext:No significant edema Abnormal Lab Results 09/01/17 05:30 BUN 24 H Random Glucose 118 H Active Medications Generic Name Dose Route Start Last Admin Trade Name Freq PRN Reason Stop Dose Admin Acetaminophen 650 mg 08/31/17 16:48 Tylenol - PO Q6H PRN PAIN LEVEL 1-6 Aspirin 81 mg 08/26/17 10:00 08/31/17 09:13 Ecotrin - PO 81 mg DAILY [facility] Administration Citalopram Hydrobromide 10 mg 08/26/17 10:00 08/31/17 09:13 Celexa - PO 10 mg DAILY [facility] Administration Clopidogrel Bisulfate 75 mg 08/26/17 10:00 08/31/17 09:13 Plavix - PO 75 mg DAILY [facility] Administration Docusate Sodium 300 mg 08/31/17 22:00 08/31/17 21:18 Colace - PO 300 mg HS [facility] Administration Ergocalciferol 50,000 unit 09/01/17 10:00 Drisdol - PO Q7D@1000 [facility] Piperacillin Sod/Tazobactam 50 mls @ 100 mls/hr 08/27/17 19:00 09/01/17 01:13 Sod 3.375 gm/ Dextrose IVPB 100 mls/hr Q8H-IV [facility] Administration Protocol Insulin Aspart 1 vial 08/26/17 07:00 09/01/17 06:19 Novolog Vial Sliding Scale - SQ Not Given ACHS [facility] Protocol Insulin Detemir 20 units 08/29/17 21:37 09/01/17 06:18 Levemir Vial SQ Not Given BID@0700,2200 [facility] Metoprolol Succinate 50 mg 08/31/17 10:00 08/31/17 09:13 Toprol Xl - PO 50 mg DAILY [facility] Administration Oxycodone HCl 10 mg 08/31/17 16:43 08/31/17 17:03 Roxicodone - PO 10 mg Q6H PRN Administration PAIN LEVEL 7 - 10 Pantoprazole Sodium 40 mg 08/26/17 10:00 08/31/17 09:13 Protonix - PO 40 mg DAILY [facility] Administration Spironolactone 25 mg 08/31/17 10:00 08/31/17 09:14 Aldactone - PO 25 mg DAILY [facility] Administration A/P 66yM with PMH 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 - I see a note from 2016 in the chart saying that he had TCC of the bladder s/p BCG and TURBT but did not have muscle invasive disease at that time. The CT scans were also negative -Now with hepatic masses/pulmonary masses and retroperitoneal adenopathy -will need tissue diagnosis -will need to coordinate with cardiology regarding ASA/Plavix/coumadin? bridging Currently coumadin on hold -continue management of A. flutter and uro sepsis.
[2017-09-01] MEDS ORDERED: PIPERACILLIN/TAZOBACTAM 3.375 GM VIAL IVPB ONE ×3 (00:51→17:01)
[2017-09-01] MEDS ORDERED: DEXTROSE 5%-WATER - 50 ML IVPB ONE ×3 (00:52→17:01)
[2017-09-01] MEDS: PIPERACILLIN/TAZOB 3.375 GM 3.375 GM in DEXTROSE 5%-WATER - 50 ML IVPB SCH ×3 (01:13→17:06)
[2017-09-01] MEDS: INSULIN (LEVEMIR) 100 UNITS/ML UNITS SQ SCH ×2 (06:18→22:08)
[2017-09-01] MEDS: INSULIN SLIDING SCALE (NOVOLOG) 1 VIAL SQ SCH ×4 (06:19→22:08)
[2017-09-01 06:27] LABS: HEMATOCRIT 34.9 % (35.4-49); HEMOGLOBIN 11.6 GM/dL (11.7-16.9); MCH 26.7 pg (25.7-33.7); MCHC 33.3 g/dl (32.0-35.9); MEAN CELL VOLUME 80.3 fl (80-96); MEAN PLT VOLUME 9.4 fl (7.5-11.1); PLATELET COUNT 238 K/MM3 (134-434); RBC 4.35 M/mm3 (4.00-5.60); RDW 17.8 % (11.9-15.9); WHITE BLOOD COUNT 8.9 K/mm3 (4.0-10.0)
[2017-09-01 06:51] LABS: ANION GAP 10 (8-16); BLOOD UREA NITROGEN 24 mg/dL (7-18); CALCIUM 8.6 mg/dL (8.5-10.1); CHLORIDE 104 mmol/L (98-107); CO2 26 mmol/L (21-32); CREATININE 1.2 mg/dL (0.7-1.3); GLUCOSE,RANDOM 118 mg/dL (74-106); POTASSIUM 3.9 mmol/L (3.5-5.1); SODIUM 140 mmol/L (136-145)
[2017-09-01] MEDS ORDERED: ERGOCALCIFEROL (VITAMIN D2) 50,000 UNIT CAPSULE (FP) PO SCH (10:00)
[2017-09-01] MEDS: SPIRONOLACTONE 25 MG TABLET (FP) PO SCH (11:05)
[2017-09-01] MEDS: CITALOPRAM HYDROBROMIDE 10 MG TABLET (FP) PO SCH (11:06)
[2017-09-01] MEDS: CLOPIDOGREL BISULFATE 75 MG TABLET (FP) PO SCH (11:14)
[2017-09-01] MEDS: ASPIRIN COATED 81 MG TABLET.EC PO SCH (11:14)
[2017-09-01] MEDS: PANTOPRAZOLE 40 MG TABLET (FP) PO SCH (11:15)
[2017-09-01] MEDS: oxyCODONE HCL 5 MG TABLET PO PRN (11:34)
[2017-09-01] MEDS: ACETAMINOPHEN 325 MG TABLET (FP) PO PRN (11:35)
--- NOTE | 2017-09-01 12:11 | PN ---
Progress Note, Physician Chief Complaint: Metastatic bladder ca History of Present Illness: NAD Seen by Hematology and cardiology needs retroperitoneal LN biopsy IR consult Warfarin being held Continue plavix - Current Medication List Current Medications: Active Medications Acetaminophen (Tylenol -) 650 mg PO Q6H PRN PRN Reason: PAIN LEVEL 1-6 Last Admin: 09/01/17 11:35 Dose: 650 mg Aspirin (Ecotrin -) 81 mg PO DAILY [facility] Last Admin: 09/01/17 11:14 Dose: 81 mg Citalopram Hydrobromide (Celexa -) 10 mg PO DAILY [facility] Last Admin: 09/01/17 11:06 Dose: 10 mg Clopidogrel Bisulfate (Plavix -) 75 mg PO DAILY [facility] Last Admin: 09/01/17 11:14 Dose: 75 mg Docusate Sodium (Colace -) 300 mg PO HS [facility] [place] Last Admin: 08/31/17 21:18 Dose: 300 mg Ergocalciferol (Drisdol -) 50,000 unit PO Q7D@1000 [facility] [place] Last Admin: 09/01/17 11:14 Dose: 50,000 unit Piperacillin Sod/Tazobactam (Sod 3.375 gm/ Dextrose) 50 mls @ 100 mls/hr IVPB Q8H-IV [facility]; Protocol Last Admin: 09/01/17 11:15 Dose: 100 mls/hr Insulin Aspart (Novolog Vial Sliding Scale -) 1 vial SQ ACHS [facility] [place]; Protocol Last Admin: 09/01/17 11:32 Dose: 2 units Insulin Detemir (Levemir Vial) 20 units SQ BID@0700,2200 [facility] [place] Last Admin: 09/01/17 06:18 Dose: Not Given Metoprolol Succinate (Toprol Xl -) 50 mg PO DAILY [facility] [place] Last Admin: 09/01/17 11:15 Dose: 50 mg Oxycodone HCl (Roxicodone -) 10 mg PO Q6H PRN PRN Reason: PAIN LEVEL 7 - 10 Last Admin: 09/01/17 11:34 Dose: 10 mg Pantoprazole Sodium (Protonix -) 40 mg PO DAILY [facility] [place] Last Admin: 09/01/17 11:15 Dose: 40 mg Spironolactone (Aldactone -) 25 mg PO DAILY [facility] Last Admin: 09/01/17 11:05 Dose: 25 mg - Objective Vital Signs: Vital Signs Temperature 98.7 F 09/01/17 10:00 Pulse Rate 73 09/01/17 10:00 Respiratory Rate 18 09/01/17 10:00 Blood Pressure 140/74 09/01/17 10:00 O2 Sat by Pulse Oximetry (%) 97 08/31/17 20:01 Constitutional: Yes: Well Nourished, No Distress, Calm Cardiovascular: Yes: Pulse Irregular Respiratory: Yes: Regular Gastrointestinal: Yes: Normal Bowel Sounds, Soft Neurological: Yes: Alert, Oriented Psychiatric: Yes: Alert, Oriented Labs: CBC, BMP 09/01/17 05:30 09/01/17 05:30 INR, PTT INR 1.96 (0.82-1.09) H 08/31/17 05:30 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 Assessment/Plan: -needs lung biopsy -Unable to stop ASA, plavix until the end of September, would re-initiate Warfarin at this time -Seen by Oncology Code(s): C67.9 - MALIGNANT NEOPLASM OF BLADDER, UNSPECIFIED; C78.00 - SECONDARY MALIGNANT NEOPLASM OF UNSPECIFIED LUNG (2) Cardiomyopathy Assessment/Plan: -seen by Cardiology -Has Life vest -Continue to monitor on Tele Code(s): I42.9 - CARDIOMYOPATHY, UNSPECIFIED Qualifiers: Cardiomyopathy type: ischemic Qualified Code(s): I25.5 - Ischemic cardiomyopathy (3) Diabetes Assessment/Plan: -Diabetic diet -Last A1C 7.3 -BGM ACHS -Levemir and novolog -RD consult Code(s): E11.9 - TYPE 2 DIABETES MELLITUS WITHOUT COMPLICATIONS (4) Constipation Assessment/Plan: -Takes milk of magnesia at home, would try the same inpatient -If needed would order fleet enema Code(s): K59.00 - CONSTIPATION, UNSPECIFIED (5) S/P coronary artery stent placement Assessment/Plan: s/p [place] Stent of RCA 07/03/2017 Unable to stop asa plavix until end september, if needed for any procedure -Seen by cardiology Code(s): Z95.5 - PRESENCE OF CORONARY ANGIOPLASTY IMPLANT AND GRAFT (6) Atrial fibrillation Assessment/Plan: -rate controlled -On BB and ISAC -Tele monitoring Code(s): I48.91 - UNSPECIFIED ATRIAL FIBRILLATION Qualifiers: Atrial fibrillation type: persistent Qualified Code(s): I48.1 - Persistent atrial fibrillation Assessment/Plan see problem list
--- NOTE | 2017-09-01 13:46 | PN ---
Progress Note, Physician Chief Complaint: Pt alert; ambulates slowly; c/o intermittent right lower back pain (he uses "a pomade" at home to alleviate the wright). History of Present Illness: 66 year old [place] speaking male with history of hypertension, atrial fibrillation on Coumadin, (some ST changes last visit 06/28, was transferred to [facility] for coronary angio) diabetes and bladder CA s/p chemo and resection with urostomy in place who presents to the ED with bilateral sided flank pain for the past 3 weeks, increasing in intensity. Urologist Dr. Berrios, had appointment today but canceled to to intractable pain and difficulty ambulating. Also complains of chest pain from the "abdominal pressure". Denies fever, palpitations, shortness of breath, hematuria in the bag or weakness. - Current Medication List Current Medications: Active Medications Acetaminophen (Tylenol -) 650 mg PO Q6H PRN PRN Reason: PAIN LEVEL 1-6 Last Admin: 09/01/17 11:35 Dose: 650 mg Aspirin (Ecotrin -) 81 mg PO DAILY [facility] Last Admin: 09/01/17 11:14 Dose: 81 mg Citalopram Hydrobromide (Celexa -) 10 mg PO DAILY [facility] Last Admin: 09/01/17 11:06 Dose: 10 mg Clopidogrel Bisulfate (Plavix -) 75 mg PO DAILY [facility] Last Admin: 09/01/17 11:14 Dose: 75 mg Docusate Sodium (Colace -) 300 mg PO HS [facility] Last Admin: 08/31/17 21:18 Dose: 300 mg Ergocalciferol (Drisdol -) 50,000 unit PO Q7D@1000 [facility] Last Admin: 09/01/17 11:14 Dose: 50,000 unit Piperacillin Sod/Tazobactam (Sod 3.375 gm/ Dextrose) 50 mls @ 100 mls/hr IVPB Q8H-IV [facility]; Protocol Last Admin: 09/01/17 11:15 Dose: 100 mls/hr Insulin Aspart (Novolog Vial Sliding Scale -) 1 vial SQ ACHS [facility]; Protocol Last Admin: 09/01/17 11:32 Dose: 2 units Insulin Detemir (Levemir Vial) 20 units SQ BID@0700,2200 [facility] Last Admin: 09/01/17 06:18 Dose: Not Given Metoprolol Succinate (Toprol Xl -) 50 mg PO DAILY [facility] Last Admin: 09/01/17 11:15 Dose: 50 mg Oxycodone HCl (Roxicodone -) 10 mg PO Q6H PRN PRN Reason: PAIN LEVEL 7 - 10 Last Admin: 09/01/17 11:34 Dose: 10 mg Pantoprazole Sodium (Protonix -) 40 mg PO DAILY [facility] Last Admin: 09/01/17 11:15 Dose: 40 mg Spironolactone (Aldactone -) 25 mg PO DAILY [facility] Last Admin: 09/01/17 11:05 Dose: 25 mg - Objective Vital Signs: Vital Signs Temperature 98.7 F 09/01/17 10:00 Pulse Rate 73 09/01/17 10:00 Respiratory Rate 18 09/01/17 10:00 Blood Pressure 140/74 09/01/17 10:00 O2 Sat by Pulse Oximetry (%) 97 08/31/17 20:01 Constitutional: Yes: Calm Eyes: Yes: WNL HENT: Yes: WNL Neck: Yes: WNL Cardiovascular: Yes: S1 (varies in intensity), S2 Respiratory: Yes: Regular Gastrointestinal: Yes: Soft ...Rectal Exam: Yes: Deferred Genitourinary: No: Anuria Musculoskeletal: Yes: Back Pain Extremities: Yes: WNL Edema: No Peripheral Pulses WNL: Yes Integumentary: Yes: WNL Neurological: Yes: Alert, Oriented, Weakness Psychiatric: Yes: Alert Labs: CBC, BMP 09/01/17 05:30 09/01/17 05:30 INR, PTT INR 1.96 (0.82-1.09) H 08/31/17 05:30 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 Damian. 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 Will discontinue Life Vest. [employer] (company) has been called, and will remove the vest today or tomorrow, per pt's RN. Continue metoprolol, spironolactone; start ACEI. Code(s): I42.9 - CARDIOMYOPATHY, UNSPECIFIED Qualifiers: Cardiomyopathy type: ischemic Qualified Code(s): I25.5 - Ischemic cardiomyopathy (4) Diabetes Code(s): E11.9 - TYPE 2 DIABETES MELLITUS WITHOUT COMPLICATIONS (5) S/P coronary artery stent placement Assessment/Plan: s/p DE Stent of RCA 07/03/2017. As discussed with pt's interventionalist, ASA and clopidogrel should be continued for a minimum of three months post-DE stent (i.e. until last week of this September) before stopping temporarily for any proposed procedure. Code(s): Z95.5 - PRESENCE OF CORONARY ANGIOPLASTY IMPLANT AND GRAFT (6) Atrial fibrillation Assessment/Plan: On metoprolol ER for HR caontrol (and systolic CHF). On warfarin for anticoagulation; this has been held pending biopsy. Would start IV heparin while INR is < 2.0. Code(s): I48.91 - UNSPECIFIED ATRIAL FIBRILLATION Qualifiers: Atrial fibrillation type: persistent Qualified Code(s): I48.1 - Persistent atrial fibrillation (7) Confusion Assessment/Plan: Pt appears disoriented to place, time. ? Hx dementia. He believes chronic right lower back pain is due to "arthritis"; denies having cancer. Code(s): R41.0 - DISORIENTATION, UNSPECIFIED
[2017-09-01] MEDS ORDERED: LISINOPRIL 5 MG TABLET (FP) PO ONE (15:00)
--- NOTE | 2017-09-01 15:33 | PN ---
Progress Note, Physician History of Present Illness: Pt seen and examined at bedside. He is awake and alert. He denies shortness of breath. - Current Medication List Current Medications: Active Medications Acetaminophen (Tylenol -) 650 mg PO Q6H PRN PRN Reason: PAIN LEVEL 1-6 Last Admin: 09/01/17 11:35 Dose: 650 mg Aspirin (Ecotrin -) 81 mg PO DAILY [facility] Last Admin: 09/01/17 11:14 Dose: 81 mg Citalopram Hydrobromide (Celexa -) 10 mg PO DAILY [facility] Last Admin: 09/01/17 11:06 Dose: 10 mg Clopidogrel Bisulfate (Plavix -) 75 mg PO DAILY [facility] Last Admin: 09/01/17 11:14 Dose: 75 mg Docusate Sodium (Colace -) 300 mg PO HS [facility] Last Admin: 08/31/17 21:18 Dose: 300 mg Ergocalciferol (Drisdol -) 50,000 unit PO Q7D@1000 [facility] Last Admin: 09/01/17 11:14 Dose: 50,000 unit Piperacillin Sod/Tazobactam (Sod 3.375 gm/ Dextrose) 50 mls @ 100 mls/hr IVPB Q8H-IV [facility]; Protocol Last Admin: 09/01/17 11:15 Dose: 100 mls/hr Insulin Aspart (Novolog Vial Sliding Scale -) 1 vial SQ ACHS [facility]; Protocol Last Admin: 09/01/17 11:32 Dose: 2 units Insulin Detemir (Levemir Vial) 20 units SQ BID@0700,2200 [facility] Last Admin: 09/01/17 06:18 Dose: Not Given Lisinopril (Prinivil) 2.5 mg PO DAILY [facility] Metoprolol Succinate (Toprol Xl -) 50 mg PO DAILY [facility] Last Admin: 09/01/17 11:15 Dose: 50 mg Oxycodone HCl (Roxicodone -) 10 mg PO Q6H PRN PRN Reason: PAIN LEVEL 7 - 10 Last Admin: 09/01/17 11:34 Dose: 10 mg Pantoprazole Sodium (Protonix -) 40 mg PO DAILY [facility] Last Admin: 09/01/17 11:15 Dose: 40 mg Spironolactone (Aldactone -) 25 mg PO DAILY [facility] Last Admin: 09/01/17 11:05 Dose: 25 mg - Objective Vital Signs: Vital Signs Temperature 98.6 F 09/01/17 14:23 Pulse Rate 79 09/01/17 14:23 Respiratory Rate 18 09/01/17 14:23 Blood Pressure 127/55 09/01/17 14:23 O2 Sat by Pulse Oximetry (%) 96 09/01/17 09:00 Constitutional: Yes: Calm Eyes: Yes: Conjunctiva Clear HENT: Yes: Atraumatic Neck: Yes: Supple Cardiovascular: Yes: S1, S2 Respiratory: Yes: CTA Bilaterally Gastrointestinal: Yes: Soft Genitourinary: Yes: Other (ileal conduit) Musculoskeletal: Yes: WNL Edema: No Neurological: Yes: Oriented Psychiatric: Yes: Oriented Labs: CBC, BMP 09/01/17 05:30 09/01/17 05:30 INR, PTT INR 1.96 (0.82-1.09) H 08/31/17 05:30 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 (2) Atrial fibrillation Code(s): I48.91 - UNSPECIFIED ATRIAL FIBRILLATION Qualifiers: Atrial fibrillation type: persistent Qualified Code(s): I48.1 - Persistent atrial fibrillation (3) Hyperlipidemia Code(s): E78.5 - HYPERLIPIDEMIA, UNSPECIFIED Qualifiers: Hyperlipidemia type: pure hypercholesterolemia Qualified Code(s): E78.00 - Pure hypercholesterolemia, unspecified; E78.0 - Pure hypercholesterolemia Assessment/Plan Current Medications Generic Name Dose Route Start Last Admin Trade Name Freq PRN Reason Stop Dose Admin Acetaminophen 650 mg 08/31/17 16:48 09/01/17 11:35 Tylenol - PO 650 mg Q6H PRN Administration PAIN LEVEL 1-6 Aspirin 81 mg 08/26/17 10:00 09/01/17 11:14 Ecotrin - PO 81 mg DAILY [facility] Administration Citalopram Hydrobromide 10 mg 08/26/17 10:00 09/01/17 11:06 Celexa - PO 10 mg DAILY [facility] Administration Clopidogrel Bisulfate 75 mg 08/26/17 10:00 09/01/17 11:14 Plavix - PO 75 mg DAILY [facility] Administration Docusate Sodium 300 mg 08/31/17 22:00 08/31/17 21:18 Colace - PO 300 mg HS [facility] Administration Ergocalciferol 50,000 unit 09/01/17 10:00 09/01/17 11:14 Drisdol - PO 50,000 unit Q7D@1000 [facility] Administration Piperacillin Sod/Tazobactam 50 mls @ 100 mls/hr 08/27/17 19:00 09/01/17 11:15 Sod 3.375 gm/ Dextrose IVPB 100 mls/hr Q8H-IV [facility] Administration Protocol Insulin Aspart 1 vial 08/26/17 07:00 09/01/17 11:32 Novolog Vial Sliding Scale - SQ 2 units ACHS [facility] Administration Protocol Insulin Detemir 20 units 08/29/17 21:37 09/01/17 06:18 Levemir Vial SQ Not Given BID@0700,2200 [facility] Lisinopril 2.5 mg 09/02/17 10:00 Prinivil PO DAILY [facility] Metoprolol Succinate 50 mg 08/31/17 10:00 09/01/17 11:15 Toprol Xl - PO 50 mg DAILY [facility] Administration Oxycodone HCl 10 mg 08/31/17 16:43 09/01/17 11:34 Roxicodone - PO 10 mg Q6H PRN Administration PAIN LEVEL 7 - 10 Pantoprazole Sodium 40 mg 08/26/17 10:00 09/01/17 11:15 Protonix - PO 40 mg DAILY ANGELITA Administration Spironolactone 25 mg 08/31/17 10:00 09/01/17 11:05 Aldactone - PO 25 mg DAILY ANGELITA Administration Impression 1. CKD 2. right hydro 3. a-fib 4. DM 5. HTN 6. hx bladder cancer 7. bladder cancer Plan - renal function is stable - monitor lytes - can titrate up to the dose of lisinopril if lytes stable - cardio input appreciated - avoid nsaids Dr Baltazar
[2017-09-01] MEDS: DOCUSATE SODIUM 100 MG CAPSULE (FP) PO SCH (22:02)
[2017-09-02] MEDS ORDERED: PIPERACILLIN/TAZOBACTAM 3.375 GM VIAL IVPB ONE ×3 (01:49→17:58)
[2017-09-02] MEDS ORDERED: DEXTROSE 5%-WATER - 50 ML IVPB ONE ×3 (01:50→17:58)
[2017-09-02] MEDS: PIPERACILLIN/TAZOB 3.375 GM 3.375 GM in DEXTROSE 5%-WATER - 50 ML IVPB SCH ×3 (02:01→18:30)
[2017-09-02] MEDS: oxyCODONE HCL 5 MG TABLET PO PRN ×2 (02:02→18:32)
[2017-09-02] MEDS: INSULIN SLIDING SCALE (NOVOLOG) 1 VIAL SQ SCH ×4 (06:08→22:49)
[2017-09-02] MEDS: INSULIN (LEVEMIR) 100 UNITS/ML UNITS SQ SCH ×2 (07:26→22:52)
--- NOTE | 2017-09-02 08:33 | PN ---
Progress Note (short form) - Note Progress Note: Patient seen and examined offers no specific complaints Last Vital Signs Temp Pulse Resp BP Pulse Ox 97.8 F 60 20 135/58 100 09/02/17 06:00 09/02/17 06:00 09/02/17 06:00 09/02/17 06:00 09/01/17 21:00 HEENT: BECYK, EOM Intact,upper dentures Oropharynx: No thrush, No mucositis Neck: Supple Nodes: Without adenopathy Cor: RSR, systolic murmur, Lungs: Clear to P&A Abd: Soft, Normal bowel sounds, No organomegaly Ext:No significant edema Skin: No rashes, Integument intact ileal conduit CBC, BMP 09/01/17 05:30 09/01/17 05:30 Current Medications Generic Name Dose Route Start Last Admin Trade Name Freq PRN Reason Stop Dose Admin Acetaminophen 650 mg 08/31/17 16:48 09/01/17 11:35 Tylenol - PO 650 mg Q6H PRN Administration PAIN LEVEL 1-6 Aspirin 81 mg 08/26/17 10:00 09/01/17 11:14 Ecotrin - PO 81 mg DAILY [facility] Administration Citalopram Hydrobromide 10 mg 08/26/17 10:00 09/01/17 11:06 Celexa - PO 10 mg DAILY [facility] Administration Clopidogrel Bisulfate 75 mg 08/26/17 10:00 09/01/17 11:14 Plavix - PO 75 mg DAILY [facility] Administration Docusate Sodium 300 mg 08/31/17 22:00 09/01/17 22:02 Colace - PO 300 mg HS [facility] Administration Ergocalciferol 50,000 unit 09/01/17 10:00 09/01/17 11:14 Drisdol - PO 50,000 unit Q7D@1000 [facility] Administration Piperacillin Sod/Tazobactam 50 mls @ 100 mls/hr 08/27/17 19:00 09/02/17 02:01 Sod 3.375 gm/ Dextrose IVPB 100 mls/hr Q8H-IV [facility] Administration Protocol Insulin Aspart 1 vial 08/26/17 07:00 09/02/17 06:08 Novolog Vial Sliding Scale - SQ Not Given ACHS [facility] Protocol Insulin Detemir 20 units 08/29/17 21:37 09/02/17 07:26 Levemir Vial SQ Not Given BID@0700,2200 [facility] Lisinopril 2.5 mg 09/02/17 10:00 Prinivil PO DAILY [facility] Metoprolol Succinate 50 mg 08/31/17 10:00 09/01/17 11:15 Toprol Xl - PO 50 mg DAILY [facility] Administration Oxycodone HCl 10 mg 08/31/17 16:43 09/02/17 02:02 Roxicodone - PO 10 mg Q6H PRN Administration PAIN LEVEL 7 - 10 Pantoprazole Sodium 40 mg 08/26/17 10:00 09/01/17 11:15 Protonix - PO 40 mg DAILY [facility] Administration Spironolactone 25 mg 08/31/17 10:00 09/01/17 11:05 Aldactone - PO 25 mg DAILY [facility] Administration Problem: Patient needs to be maintained on A/C in view of recent cardiac procedures. Apparently this is for 3 months. On imaging, It appears that patient has metastatic ca (? bladder) and to delay 3 months may be detrimental and not allow us the opportunity to treat patients presumed metastatic disease. Will need to discuss.
--- NOTE | 2017-09-02 09:18 | PN ---
Progress Note, Physician Chief Complaint: Metastatic bladder ca History of Present Illness: NAD Seen by Hematology and cardiology needs retroperitoneal LN biopsy IR consult Warfarin being held Continue plavix - Current Medication List Current Medications: Active Medications Acetaminophen (Tylenol -) 650 mg PO Q6H PRN PRN Reason: PAIN LEVEL 1-6 Last Admin: 09/01/17 11:35 Dose: 650 mg Aspirin (Ecotrin -) 81 mg PO DAILY [facility] Last Admin: 09/01/17 11:14 Dose: 81 mg Citalopram Hydrobromide (Celexa -) 10 mg PO DAILY [facility] Last Admin: 09/01/17 11:06 Dose: 10 mg Clopidogrel Bisulfate (Plavix -) 75 mg PO DAILY [facility] Last Admin: 09/01/17 11:14 Dose: 75 mg Docusate Sodium (Colace -) 300 mg PO HS [facility] Last Admin: 09/01/17 22:02 Dose: 300 mg Ergocalciferol (Drisdol -) 50,000 unit PO Q7D@1000 [facility] Last Admin: 09/01/17 11:14 Dose: 50,000 unit Piperacillin Sod/Tazobactam (Sod 3.375 gm/ Dextrose) 50 mls @ 100 mls/hr IVPB Q8H-IV [facility]; Protocol Last Admin: 09/02/17 02:01 Dose: 100 mls/hr Insulin Aspart (Novolog Vial Sliding Scale -) 1 vial SQ ACHS [facility]; Protocol Last Admin: 09/02/17 06:08 Dose: Not Given Insulin Detemir (Levemir Vial) 20 units SQ BID@0700,2200 [facility] Last Admin: 09/02/17 07:26 Dose: Not Given Lisinopril (Prinivil) 2.5 mg PO DAILY [facility] Metoprolol Succinate (Toprol Xl -) 50 mg PO DAILY [facility] Last Admin: 09/01/17 11:15 Dose: 50 mg Oxycodone HCl (Roxicodone -) 10 mg PO Q6H PRN PRN Reason: PAIN LEVEL 7 - 10 Last Admin: 09/02/17 02:02 Dose: 10 mg Pantoprazole Sodium (Protonix -) 40 mg PO DAILY [facility] Last Admin: 09/01/17 11:15 Dose: 40 mg Spironolactone (Aldactone -) 25 mg PO DAILY [facility] Last Admin: 09/01/17 11:05 Dose: 25 mg - Objective Vital Signs: Vital Signs Temperature 97.8 F 09/02/17 06:00 Pulse Rate 60 09/02/17 06:00 Respiratory Rate 20 09/02/17 06:00 Blood Pressure 135/58 09/02/17 06:00 O2 Sat by Pulse Oximetry (%) 100 09/01/17 21:00 Constitutional: Yes: Well Nourished, No Distress, Calm Cardiovascular: Yes: Regular Rate and Rhythm Respiratory: Yes: Regular Gastrointestinal: Yes: Normal Bowel Sounds, Soft Musculoskeletal: Yes: WNL Extremities: Yes: WNL Edema: No Peripheral Pulses WNL: Yes Neurological: Yes: Alert Psychiatric: Yes: Alert Labs: CBC, BMP 09/01/17 05:30 09/01/17 05:30 INR, PTT INR 1.96 (0.82-1.09) H 08/31/17 05:30 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 Assessment/Plan: -needs lung biopsy -Unable to stop ASA, plavix until the end september, would re-initiate Warfarin at this time -Seen by Oncology Code(s): C67.9 - MALIGNANT NEOPLASM OF BLADDER, UNSPECIFIED; C78.00 - SECONDARY MALIGNANT NEOPLASM OF UNSPECIFIED LUNG (2) Cardiomyopathy Assessment/Plan: -seen by Cardiology -Life vest discontinued -Continue to monitor on Tele Code(s): I42.9 - CARDIOMYOPATHY, UNSPECIFIED Qualifiers: Cardiomyopathy type: ischemic Qualified Code(s): I25.5 - Ischemic cardiomyopathy (3) Diabetes Assessment/Plan: -Diabetic diet -Last A1C 7.3 -BGM ACHS -Levemir and novolog -RD consult Code(s): E11.9 - TYPE 2 DIABETES MELLITUS WITHOUT COMPLICATIONS (4) Constipation Assessment/Plan: -Takes milk of magnesia at home, would try the same inpatient -If needed would order fleet enema Code(s): K59.00 - CONSTIPATION, UNSPECIFIED (5) S/P coronary artery stent placement Assessment/Plan: s/p DE Stent of RCA 07/03/2017 Unable to stop asa plavix until end september, if needed for any procedure -Seen by cardiology Code(s): Z95.5 - PRESENCE OF CORONARY ANGIOPLASTY IMPLANT AND GRAFT (6) Atrial fibrillation Assessment/Plan: -rate controlled -On BB and ISAC -Tele monitoring Code(s): I48.91 - UNSPECIFIED ATRIAL FIBRILLATION Qualifiers: Atrial fibrillation type: persistent Qualified Code(s): I48.1 - Persistent atrial fibrillation Assessment/Plan see problem list
[2017-09-02] MEDS: SPIRONOLACTONE 25 MG TABLET (FP) PO SCH (10:19)
[2017-09-02] MEDS: CITALOPRAM HYDROBROMIDE 10 MG TABLET (FP) PO SCH (11:20)
[2017-09-02] MEDS: CLOPIDOGREL BISULFATE 75 MG TABLET (FP) PO SCH (11:20)
[2017-09-02] MEDS: ASPIRIN COATED 81 MG TABLET.EC PO SCH (11:20)
[2017-09-02] MEDS: LISINOPRIL 5 MG TABLET (FP) PO SCH (11:20)
[2017-09-02] MEDS: PANTOPRAZOLE 40 MG TABLET (FP) PO SCH (11:21)
--- NOTE | 2017-09-02 11:49 | PN ---
Progress Note, Physician History of Present Illness: 66y M hx of bladder ca with ileal conduit, htn, dm, afib on coumadin, CAD s/p recent PCI 1 month ago, cardiomyopathy on Lifevest admitted with flank pain and back pain and currently he is being treated for suspected UTI/ pyelonephritis with zosyn. A CTA/P shows extensive metastatic disease in the lungs, RP nodes and the liver. He denies chest pain, dyspnea, palpitations, near or true syncope , orthopnea, PND or LE edema. - Current Medication List Current Medications: Active Medications Acetaminophen (Tylenol -) 650 mg PO Q6H PRN PRN Reason: PAIN LEVEL 1-6 Last Admin: 09/01/17 11:35 Dose: 650 mg Aspirin (Ecotrin -) 81 mg PO DAILY [facility] Last Admin: 09/02/17 11:20 Dose: 81 mg Citalopram Hydrobromide (Celexa -) 10 mg PO DAILY [facility] Last Admin: 09/02/17 11:20 Dose: 10 mg Clopidogrel Bisulfate (Plavix -) 75 mg PO DAILY [facility] Last Admin: 09/02/17 11:20 Dose: 75 mg Docusate Sodium (Colace -) 300 mg PO HS [facility] Last Admin: 09/01/17 22:02 Dose: 300 mg Ergocalciferol (Drisdol -) 50,000 unit PO Q7D@1000 [facility] Last Admin: 09/01/17 11:14 Dose: 50,000 unit Piperacillin Sod/Tazobactam (Sod 3.375 gm/ Dextrose) 50 mls @ 100 mls/hr IVPB Q8H-IV [facility]; Protocol Last Admin: 09/02/17 10:21 Dose: 100 mls/hr Insulin Aspart (Novolog Vial Sliding Scale -) 1 vial SQ ACHS [facility]; Protocol Last Admin: 09/02/17 06:08 Dose: Not Given Insulin Detemir (Levemir Vial) 20 units SQ BID@0700,2200 [facility] Last Admin: 09/02/17 07:26 Dose: Not Given Lisinopril (Prinivil) 2.5 mg PO DAILY [facility] Last Admin: 09/02/17 11:20 Dose: 2.5 mg Magnesium Hydroxide (Milk Of Magnesia -) 30 ml PO DAILY [facility] Metoprolol Succinate (Toprol Xl -) 50 mg PO DAILY [facility] Last Admin: 09/02/17 11:21 Dose: 50 mg Oxycodone HCl (Roxicodone -) 10 mg PO Q6H PRN PRN Reason: PAIN LEVEL 7 - 10 Last Admin: 09/02/17 02:02 Dose: 10 mg Pantoprazole Sodium (Protonix -) 40 mg PO DAILY [facility] Last Admin: 09/02/17 11:21 Dose: 40 mg Spironolactone (Aldactone -) 25 mg PO DAILY [facility] Last Admin: 09/02/17 10:19 Dose: 25 mg Warfarin Sodium (Coumadin -) 5 mg PO ONCE@1800 ONE Stop: 09/02/17 18:01 - Objective Vital Signs: Vital Signs Temperature 98.2 F 09/02/17 10:00 Pulse Rate 66 09/02/17 10:00 Respiratory Rate 18 09/02/17 10:00 Blood Pressure 142/80 09/02/17 10:00 O2 Sat by Pulse Oximetry (%) 100 09/01/17 21:00 Eyes: Yes: WNL, Conjunctiva Clear, EOM Intact HENT: Yes: WNL, Atraumatic, Normocephalic Neck: Yes: WNL, Supple, Trachea Midline Cardiovascular: Yes: WNL, Regular Rate and Rhythm Respiratory: Yes: WNL, Regular, CTA Bilaterally Gastrointestinal: Yes: WNL, Normal Bowel Sounds Genitourinary: Yes: WNL Musculoskeletal: Yes: WNL Extremities: Yes: WNL Edema: No Integumentary: Yes: WNL Neurological: Yes: WNL, Alert, Oriented ...Motor Strength: WNL Psychiatric: Yes: WNL Labs: CBC, BMP 09/01/17 05:30 09/01/17 05:30 INR, PTT INR 1.96 (0.82-1.09) H 08/31/17 05:30 Assessment/Plan - Problems (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 Damian. 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 Will discontinue Life Vest. [facility]) has been called, and will remove the vest today or tomorrow, per pt's RN. Continue metoprolol, spironolactone; start ACEI. Code(s): I42.9 - CARDIOMYOPATHY, UNSPECIFIED Qualifiers: Cardiomyopathy type: ischemic Qualified Code(s): I25.5 - Ischemic cardiomyopathy (4) Diabetes Code(s): E11.9 - TYPE 2 DIABETES MELLITUS WITHOUT COMPLICATIONS (5) S/P coronary artery stent placement Assessment/Plan: s/p DE Stent of RCA 07/03/2017. As discussed with pt's interventionalist, ASA and clopidogrel should be continued for a minimum of three months post-DE stent (i.e. until last week of this September) before stopping temporarily for any proposed procedure. Code(s): Z95.5 - PRESENCE OF CORONARY ANGIOPLASTY IMPLANT AND GRAFT (6) Atrial fibrillation Assessment/Plan: On metoprolol ER for HR caontrol (and systolic CHF). On warfarin for anticoagulation; this has been held pending biopsy. Would start IV heparin while INR is < 2.0. Code(s): I48.91 - UNSPECIFIED ATRIAL FIBRILLATION Qualifiers: Atrial fibrillation type: persistent Qualified Code(s): I48.1 - Persistent atrial fibrillation (7) Confusion Assessment/Plan: Pt appears disoriented to place, time. ? Hx dementia. He believes chronic right lower back pain is due to "arthritis"; denies having cancer. Code(s): R41.0 - DISORIENTATION, UNSPECIFIED
[2017-09-02] MEDS: MAGNESIUM HYDROX 2400MG/30ML ORAL SUSPENSION 30 ML CUP PO SCH (11:55)
--- NOTE | 2017-09-02 12:18 | PN ---
Progress Note, Physician History of Present Illness: Pt seen and examined at bedside. he denies shortness of breath. - Current Medication List Current Medications: Active Medications Acetaminophen (Tylenol -) 650 mg PO Q6H PRN PRN Reason: PAIN LEVEL 1-6 Last Admin: 09/01/17 11:35 Dose: 650 mg Aspirin (Ecotrin -) 81 mg PO DAILY [facility] Last Admin: 09/02/17 11:20 Dose: 81 mg Citalopram Hydrobromide (Celexa -) 10 mg PO DAILY [facility] Last Admin: 09/02/17 11:20 Dose: 10 mg Clopidogrel Bisulfate (Plavix -) 75 mg PO DAILY [facility] Last Admin: 09/02/17 11:20 Dose: 75 mg Docusate Sodium (Colace -) 300 mg PO HS [facility] Last Admin: 09/01/17 22:02 Dose: 300 mg Ergocalciferol (Drisdol -) 50,000 unit PO Q7D@1000 [facility] Last Admin: 09/01/17 11:14 Dose: 50,000 unit Piperacillin Sod/Tazobactam (Sod 3.375 gm/ Dextrose) 50 mls @ 100 mls/hr IVPB Q8H-IV [facility]; Protocol Last Admin: 09/02/17 10:21 Dose: 100 mls/hr Insulin Aspart (Novolog Vial Sliding Scale -) 1 vial SQ ACHS [facility]; Protocol Last Admin: 09/02/17 11:59 Dose: 2 units Insulin Detemir (Levemir Vial) 20 units SQ BID@0700,2200 [facility] Last Admin: 09/02/17 07:26 Dose: Not Given Lisinopril (Prinivil) 2.5 mg PO DAILY [facility] Last Admin: 09/02/17 11:20 Dose: 2.5 mg Magnesium Hydroxide (Milk Of Magnesia -) 30 ml PO DAILY [facility] Last Admin: 09/02/17 11:55 Dose: 30 ml Metoprolol Succinate (Toprol Xl -) 50 mg PO DAILY [facility] Last Admin: 09/02/17 11:21 Dose: 50 mg Oxycodone HCl (Roxicodone -) 10 mg PO Q6H PRN PRN Reason: PAIN LEVEL 7 - 10 Last Admin: 09/02/17 02:02 Dose: 10 mg Pantoprazole Sodium (Protonix -) 40 mg PO DAILY [facility] Last Admin: 09/02/17 11:21 Dose: 40 mg Spironolactone (Aldactone -) 25 mg PO DAILY [facility] Last Admin: 09/02/17 10:19 Dose: 25 mg Warfarin Sodium (Coumadin -) 5 mg PO ONCE@1800 ONE Stop: 09/02/17 18:01 - Objective Vital Signs: Vital Signs Temperature 98.2 F 09/02/17 10:00 Pulse Rate 66 09/02/17 10:00 Respiratory Rate 18 09/02/17 10:00 Blood Pressure 142/80 09/02/17 10:00 O2 Sat by Pulse Oximetry (%) 100 09/01/17 21:00 Constitutional: Yes: Calm Eyes: Yes: Conjunctiva Clear HENT: Yes: Atraumatic Neck: Yes: Supple Cardiovascular: Yes: S1, S2 Respiratory: Yes: CTA Bilaterally Gastrointestinal: Yes: Normal Bowel Sounds, Soft Genitourinary: Yes: Other (ileal conduit) Musculoskeletal: Yes: WNL Edema: No Neurological: Yes: Oriented Psychiatric: Yes: Oriented Labs: CBC, BMP 09/01/17 05:30 09/01/17 05:30 INR, PTT INR 1.96 (0.82-1.09) H 08/31/17 05:30 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 (2) Atrial fibrillation Code(s): I48.91 - UNSPECIFIED ATRIAL FIBRILLATION Qualifiers: Atrial fibrillation type: persistent Qualified Code(s): I48.1 - Persistent atrial fibrillation (3) Hyperlipidemia Code(s): E78.5 - HYPERLIPIDEMIA, UNSPECIFIED Qualifiers: Hyperlipidemia type: pure hypercholesterolemia Qualified Code(s): E78.00 - Pure hypercholesterolemia, unspecified; E78.0 - Pure hypercholesterolemia Assessment/Plan Current Medications Generic Name Dose Route Start Last Admin Trade Name Freq PRN Reason Stop Dose Admin Acetaminophen 650 mg 08/31/17 16:48 09/01/17 11:35 Tylenol - PO 650 mg Q6H PRN Administration PAIN LEVEL 1-6 Aspirin 81 mg 08/26/17 10:00 09/02/17 11:20 Ecotrin - PO 81 mg DAILY [facility] Administration Citalopram Hydrobromide 10 mg 08/26/17 10:00 09/02/17 11:20 Celexa - PO 10 mg DAILY [facility] Administration Clopidogrel Bisulfate 75 mg 08/26/17 10:00 09/02/17 11:20 Plavix - PO 75 mg DAILY [facility] Administration Docusate Sodium 300 mg 08/31/17 22:00 09/01/17 22:02 Colace - PO 300 mg HS [facility] Administration Ergocalciferol 50,000 unit 09/01/17 10:00 09/01/17 11:14 Drisdol - PO 50,000 unit Q7D@1000 [facility] Administration Piperacillin Sod/Tazobactam 50 mls @ 100 mls/hr 08/27/17 19:00 09/02/17 10:21 Sod 3.375 gm/ Dextrose IVPB 100 mls/hr Q8H-IV [facility] Administration Protocol Insulin Aspart 1 vial 08/26/17 07:00 09/02/17 11:59 Novolog Vial Sliding Scale - SQ 2 units ACHS [facility] Administration Protocol Insulin Detemir 20 units 08/29/17 21:37 09/02/17 07:26 Levemir Vial SQ Not Given BID@0700,2200 [facility] Lisinopril 2.5 mg 09/02/17 10:00 09/02/17 11:20 Prinivil PO 2.5 mg DAILY [facility] Administration Magnesium Hydroxide 30 ml 09/02/17 10:00 09/02/17 11:55 Milk Of Magnesia - PO 30 ml DAILY [facility] Administration Metoprolol Succinate 50 mg 08/31/17 10:00 09/02/17 11:21 Toprol Xl - PO 50 mg DAILY [facility] Administration Oxycodone HCl 10 mg 08/31/17 16:43 09/02/17 02:02 Roxicodone - PO 10 mg Q6H PRN Administration PAIN LEVEL 7 - 10 Pantoprazole Sodium 40 mg 08/26/17 10:00 09/02/17 11:21 Protonix - PO 40 mg DAILY [facility] Administration Spironolactone 25 mg 08/31/17 10:00 09/02/17 10:19 Aldactone - PO 25 mg DAILY [facility] Administration Warfarin Sodium 5 mg 09/02/17 18:00 Coumadin - PO 09/02/17 18:01 ONCE@1800 ONE Impression 1. CKD 2. right hydro 3. a-fib 4. DM 5. HTN 6. hx bladder cancer 7. bladder cancer Plan - check bmp - cont diuretics - renal function has been stable - ileal conduit care - cardio follow up - avoid nsaids Dr Baltazar
--- NOTE | 2017-09-02 13:08 | PN ---
Progress Note, Physician History of Present Illness: stable doing well no complaints - Current Medication List Current Medications: Active Medications Acetaminophen (Tylenol -) 650 mg PO Q6H PRN PRN Reason: PAIN LEVEL 1-6 Last Admin: 09/01/17 11:35 Dose: 650 mg Aspirin (Ecotrin -) 81 mg PO DAILY [facility] Last Admin: 09/02/17 11:20 Dose: 81 mg Citalopram Hydrobromide (Celexa -) 10 mg PO DAILY [facility] Last Admin: 09/02/17 11:20 Dose: 10 mg Clopidogrel Bisulfate (Plavix -) 75 mg PO DAILY [facility] Last Admin: 09/02/17 11:20 Dose: 75 mg Docusate Sodium (Colace -) 300 mg PO HS [facility] Last Admin: 09/01/17 22:02 Dose: 300 mg Ergocalciferol (Drisdol -) 50,000 unit PO Q7D@1000 [facility] Last Admin: 09/01/17 11:14 Dose: 50,000 unit Piperacillin Sod/Tazobactam (Sod 3.375 gm/ Dextrose) 50 mls @ 100 mls/hr IVPB Q8H-IV [facility]; Protocol Last Admin: 09/02/17 10:21 Dose: 100 mls/hr Insulin Aspart (Novolog Vial Sliding Scale -) 1 vial SQ ACHS [facility]; Protocol Last Admin: 09/02/17 11:59 Dose: 2 units Insulin Detemir (Levemir Vial) 20 units SQ BID@0700,2200 [facility] Last Admin: 09/02/17 07:26 Dose: Not Given Lisinopril (Prinivil) 2.5 mg PO DAILY [facility] Last Admin: 09/02/17 11:20 Dose: 2.5 mg Magnesium Hydroxide (Milk Of Magnesia -) 30 ml PO DAILY [facility] Last Admin: 09/02/17 11:55 Dose: 30 ml Metoprolol Succinate (Toprol Xl -) 50 mg PO DAILY [facility] Last Admin: 09/02/17 11:21 Dose: 50 mg Oxycodone HCl (Roxicodone -) 10 mg PO Q6H PRN PRN Reason: PAIN LEVEL 7 - 10 Last Admin: 09/02/17 02:02 Dose: 10 mg Pantoprazole Sodium (Protonix -) 40 mg PO DAILY [facility] Last Admin: 09/02/17 11:21 Dose: 40 mg Spironolactone (Aldactone -) 25 mg PO DAILY [facility] Last Admin: 09/02/17 10:19 Dose: 25 mg Warfarin Sodium (Coumadin -) 5 mg PO ONCE@1800 ONE Stop: 09/02/17 18:01 - Objective Vital Signs: Vital Signs Temperature 98.2 F 09/02/17 10:00 Pulse Rate 66 09/02/17 10:00 Respiratory Rate 18 09/02/17 10:00 Blood Pressure 142/80 09/02/17 10:00 O2 Sat by Pulse Oximetry (%) 100 09/01/17 21:00 Constitutional: Yes: No Distress, Calm Cardiovascular: Yes: Regular Rate and Rhythm Respiratory: Yes: Regular, CTA Bilaterally Gastrointestinal: Yes: Normal Bowel Sounds, Soft Neurological: Yes: Alert, Oriented Psychiatric: Yes: Alert, Oriented Labs: CBC, BMP 09/01/17 05:30 09/01/17 05:30 INR, PTT INR 1.96 (0.82-1.09) H 08/31/17 05:30 Assessment/Plan Problem List - Problems (1) Sepsis due to urinary tract infection Code(s): A41.9 - SEPSIS, UNSPECIFIED ORGANISM; N39.0 - URINARY TRACT INFECTION, SITE NOT SPECIFIED (2) 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 (3) 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 Code(s): C67.9 - MALIGNANT NEOPLASM OF BLADDER, UNSPECIFIED; C78.7 - SECONDARY MALIG NEOPLASM OF LIVER AND INTRAHEPATIC BILE DUCT (4) Atrial fibrillation Code(s): I48.91 - UNSPECIFIED ATRIAL FIBRILLATION Qualifiers: Atrial fibrillation type: unspecified Qualified Code(s): I48.91 - Unspecified atrial fibrillation (5) Atrial fibrillation with rapid ventricular response Code(s): I48.91 - UNSPECIFIED ATRIAL FIBRILLATION (6) CAD (coronary artery disease) Code(s): I25.10 - ATHSCL HEART DISEASE OF [place] CORONARY ARTERY W/O ANG PCTRS (7) Hematuria Code(s): R31.9 - HEMATURIA, UNSPECIFIED plan continue zosyn rest continue as per the team patient stable monitor for fevers we will give a 7 day course of abx
--- NOTE | 2017-09-02 13:10 | PN ---
Progress Note, Physician History of Present Illness: stable doing well no complaints all cx and sensitivites noted - Current Medication List Current Medications: Active Medications Acetaminophen (Tylenol -) 650 mg PO Q6H PRN PRN Reason: PAIN LEVEL 1-6 Last Admin: 09/01/17 11:35 Dose: 650 mg Aspirin (Ecotrin -) 81 mg PO DAILY [facility] Last Admin: 09/02/17 11:20 Dose: 81 mg Citalopram Hydrobromide (Celexa -) 10 mg PO DAILY [facility] Last Admin: 09/02/17 11:20 Dose: 10 mg Clopidogrel Bisulfate (Plavix -) 75 mg PO DAILY [facility] Last Admin: 09/02/17 11:20 Dose: 75 mg Docusate Sodium (Colace -) 300 mg PO HS [facility] Last Admin: 09/01/17 22:02 Dose: 300 mg Ergocalciferol (Drisdol -) 50,000 unit PO Q7D@1000 [facility] Last Admin: 09/01/17 11:14 Dose: 50,000 unit Piperacillin Sod/Tazobactam (Sod 3.375 gm/ Dextrose) 50 mls @ 100 mls/hr IVPB Q8H-IV [facility]; Protocol Last Admin: 09/02/17 10:21 Dose: 100 mls/hr Insulin Aspart (Novolog Vial Sliding Scale -) 1 vial SQ ACHS [facility]; Protocol Last Admin: 09/02/17 11:59 Dose: 2 units Insulin Detemir (Levemir Vial) 20 units SQ BID@0700,2200 [facility] Last Admin: 09/02/17 07:26 Dose: Not Given Lisinopril (Prinivil) 2.5 mg PO DAILY [facility] Last Admin: 09/02/17 11:20 Dose: 2.5 mg Magnesium Hydroxide (Milk Of Magnesia -) 30 ml PO DAILY [facility] Last Admin: 09/02/17 11:55 Dose: 30 ml Metoprolol Succinate (Toprol Xl -) 50 mg PO DAILY [facility] Last Admin: 09/02/17 11:21 Dose: 50 mg Oxycodone HCl (Roxicodone -) 10 mg PO Q6H PRN PRN Reason: PAIN LEVEL 7 - 10 Last Admin: 09/02/17 02:02 Dose: 10 mg Pantoprazole Sodium (Protonix -) 40 mg PO DAILY [facility] Last Admin: 09/02/17 11:21 Dose: 40 mg Spironolactone (Aldactone -) 25 mg PO DAILY [facility] Last Admin: 09/02/17 10:19 Dose: 25 mg Warfarin Sodium (Coumadin -) 5 mg PO ONCE@1800 ONE Stop: 09/02/17 18:01 - Objective Vital Signs: Vital Signs Temperature 98.2 F 09/02/17 10:00 Pulse Rate 66 09/02/17 10:00 Respiratory Rate 18 09/02/17 10:00 Blood Pressure 142/80 09/02/17 10:00 O2 Sat by Pulse Oximetry (%) 100 09/01/17 21:00 Constitutional: Yes: No Distress, Calm Cardiovascular: Yes: Regular Rate and Rhythm Respiratory: Yes: Regular, CTA Bilaterally Gastrointestinal: Yes: Normal Bowel Sounds, Soft Genitourinary: Yes: Other Musculoskeletal: Yes: WNL Extremities: Yes: WNL Neurological: Yes: Alert, Oriented Psychiatric: Yes: Alert, Oriented Labs: CBC, BMP 09/01/17 05:30 09/01/17 05:30 INR, PTT INR 1.96 (0.82-1.09) H 08/31/17 05:30 Assessment/Plan Problem List - Problems (1) Sepsis due to urinary tract infection Code(s): A41.9 - SEPSIS, UNSPECIFIED ORGANISM; N39.0 - URINARY TRACT INFECTION, SITE NOT SPECIFIED (2) 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 (3) 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 Code(s): C67.9 - MALIGNANT NEOPLASM OF BLADDER, UNSPECIFIED; C78.7 - 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
[2017-09-02 15:52] LABS: INR 1.43 (0.82-1.09)
[2017-09-02 16:00] LABS: PROTHROMBIN TIME (PATIENT) 16.2 SEC (9.7-13.0)
[2017-09-02] MEDS ORDERED: WARFARIN NA 5 MG TABLET (UD) PO ONE (18:00)
[2017-09-02] MEDS: ACETAMINOPHEN 325 MG TABLET (FP) PO PRN (18:34)
[2017-09-02] MEDS: DOCUSATE SODIUM 100 MG CAPSULE (FP) PO SCH (22:48)
[2017-09-03] MEDS: PIPERACILLIN/TAZOB 3.375 GM 3.375 GM in DEXTROSE 5%-WATER - 50 ML IVPB SCH ×2 (03:30→10:01)
[2017-09-03] MEDS ORDERED: PIPERACILLIN/TAZOBACTAM 3.375 GM VIAL IVPB ONE ×2 (03:37→09:28)
[2017-09-03] MEDS ORDERED: DEXTROSE 5%-WATER - 50 ML IVPB ONE ×2 (03:38→09:29)
[2017-09-03] MEDS: INSULIN SLIDING SCALE (NOVOLOG) 1 VIAL SQ SCH ×2 (06:58→11:52)
[2017-09-03] MEDS: INSULIN (LEVEMIR) 100 UNITS/ML UNITS SQ SCH (07:06)
[2017-09-03 07:58] VITALS: BP 119/75; PULSE 84; TEMP 97.5
[2017-09-03 08:12] LABS: BASO % 0.6 % (0-2.0); EOS % 0.9 % (0-4.5); HEMATOCRIT 35.7 % (35.4-49); HEMOGLOBIN 11.8 GM/dL (11.7-16.9); LYMPH % 7.8 % (8-40); MCH 26.7 pg (25.7-33.7); MEAN PLT VOLUME 9.1 fl (7.5-11.1); MONO % 7.4 % (3.8-10.2); NEUT % 83.3 % (42.8-82.8); PLATELET COUNT 273 K/MM3 (134-434); RBC 4.41 M/mm3 (4.00-5.60); RDW 17.9 % (11.9-15.9); WHITE BLOOD COUNT 9.5 K/mm3 (4.0-10.0)
[2017-09-03 08:22] LABS: INR 1.41 (0.82-1.09); PROTHROMBIN TIME (PATIENT) 15.9 SEC (9.7-13.0)
[2017-09-03 08:24] LABS: ACTIVATED PTT 30.2 SECONDS (25.2-36.5)
[2017-09-03 08:34] LABS: CHLORIDE 102 mmol/L (98-107); POTASSIUM 4.2 mmol/L (3.5-5.1); SODIUM 138 mmol/L (136-145)
[2017-09-03 08:43] LABS: ALK PHOS 112 U/L (45-117); ANION GAP 9 (8-16); BILIRUBIN,TOTAL 0.6 mg/dL (0.2-1.0); BLOOD UREA NITROGEN 20 mg/dL (7-18); CALCIUM 8.8 mg/dL (8.5-10.1); CO2 27 mmol/L (21-32); CREATININE 1.2 mg/dL (0.7-1.3); GLUCOSE,RANDOM 144 mg/dL (74-106); SGOT/AST 12 U/L (15-37); SGPT/ALT 21 U/L (12-78); TOT PROT 7.3 g/dl (6.4-8.2)
[2017-09-03] MEDS ORDERED: PT OWN MED DRAWER 7, Y5N ONE (09:28)
[2017-09-03] MEDS: CITALOPRAM HYDROBROMIDE 10 MG TABLET (FP) PO SCH (09:59)
[2017-09-03] MEDS: LISINOPRIL 5 MG TABLET (FP) PO SCH (09:59)
[2017-09-03] MEDS: SPIRONOLACTONE 25 MG TABLET (FP) PO SCH (09:59)
[2017-09-03] MEDS: CLOPIDOGREL BISULFATE 75 MG TABLET (FP) PO SCH (10:00)
[2017-09-03] MEDS: PANTOPRAZOLE 40 MG TABLET (FP) PO SCH (10:00)
[2017-09-03] MEDS: MAGNESIUM HYDROX 2400MG/30ML ORAL SUSPENSION 30 ML CUP PO SCH (10:00)
[2017-09-03] MEDS: ASPIRIN COATED 81 MG TABLET.EC PO SCH (10:00)
--- NOTE | 2017-09-03 10:11 | DS ---
Physical Examination Vital Signs: Vital Signs Temperature 97.5 F L 09/03/17 06:00 Pulse Rate 84 09/03/17 06:00 Respiratory Rate 20 09/03/17 06:00 Blood Pressure 119/75 09/03/17 06:00 O2 Sat by Pulse Oximetry (%) 98 09/02/17 09:00 Findings/Remarks: STILL SLIGHTLY CONFUSED, AX0 X 2 Constitutional: Yes: Mild Distress Eyes: Yes: WNL HENT: Yes: WNL Neck: Yes: WNL Cardiovascular: Yes: WNL Respiratory: Yes: WNL Gastrointestinal: Yes: Other Renal/: Yes: Other Musculoskeletal: Yes: Muscle Weakness Edema: No Peripheral Pulses WNL: Yes Integumentary: Yes: Other Wound/Incision: Yes: Dressing Dry and Intact, Unapproximated Neurological: Yes: Confusion, Pre-Existing Deficit, Unsteady Gait ...Motor Strength: LLE, RLE Psychiatric: Yes: Other Labs: CBC, BMP 09/03/17 07:00 09/03/17 07:00 Discharge Summary Reason For Visit: CARCINOMA OF BLADDER METASTATIC Current Active Problems Bladder cancer (Acute) 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 WILL NEED TO F/U INR Thursday WITH DR NICHOLS Condition: Fair - Instructions Diet, Activity, Other Instructions: SEE DR NICHOLS THURSDAY FOR INR CHECK COUMADIN 5MG DAILY FOR 3 DAYS, THURSDAY, THURSDAY AND THURSDAY THEN 2MG DAILY STARTING THURSDAY RENAL BIOPSY IN THE END OF SEPTEMBER AFTER 3 COMPLETE MONTHS OF PLAVIX POST-CARDIAC STENT. FOLLOW UP WITH ONCOLOGY NEXT WEEK Referrals: Iris Morales MD [Primary Care Provider] - Disposition: VNS/HOME HEALTH CARE - Home Medications Comprehensive Discharge Medication List: Ambulatory Orders Aspirin [Aspirin EC] 81 mg PO DAILY 08/25/17 Citalopram Hydrobromide [Citalopram HBr] 10 mg PO DAILY 08/25/17 Clopidogrel Bisulfate [Plavix] 75 mg PO DAILY 08/25/17 Ergocalciferol (Vitamin D2) [Drisdol] 1.25 mg PO WEEKLY 08/25/17 Insulin Glargine,Hum.rec.anlog [Basaglar Kwikpen U-100] 60 unit SQ DAILY Oxycodone HCl/Acetaminophen [Endocet 5-325 Tablet] 1 each PO Q6H PRN 08/25/17 Pantoprazole Sodium [Protonix] 40 mg PO DAILY 08/25/17 Acetaminophen [Tylenol .Regular Strength -] 650 mg PO Q6H PRN #120 tablet MDD 6 09/03/17 Docusate Sodium [Colace -] 300 mg PO HS #90 capsule 09/03/17 Insulin Aspart [Novolog Flexpen] 20 unit SQ BID #4 insuln.pen 09/03/17 Lisinopril [Prinivil] 2.5 mg PO DAILY #30 tablet 09/03/17 Metoprolol Succinate [Toprol XL -] 50 mg PO DAILY #30 tab.sr.24h 09/03/17 Spironolactone [Aldactone -] 25 mg PO DAILY #30 tablet 09/03/17 Warfarin Sodium [Coumadin] 2 mg PO DAILY #30 tablet 09/03/17 Warfarin Sodium [Coumadin] 5 mg PO DAILY #3 tablet 09/03/17
--- NOTE | 2017-09-03 10:36 | PN ---
Progress Note, Physician Chief Complaint: Pt alert; still with frequent bouts of lower back pain, though was able to sleep well. Does not know the date, nor his date of ; did not know he was in a hospital; was able to name "[place]" as the city. History of Present Illness: 66 year old Filipino speaking male with history of hypertension, atrial fibrillation on Coumadin, (some ST changes last visit 06/28, was transferred to [facility] for coronary angio) diabetes and bladder CA s/p chemo and resection with urostomy in place who presents to the ED with bilateral sided flank pain for the past 3 weeks, increasing in intensity. Urologist Dr. Berrios, had appointment today but canceled to to intractable pain and difficulty ambulating. Also complains of chest pain from the "abdominal pressure". Denies fever, palpitations, shortness of breath, hematuria in the bag or weakness. - Current Medication List Current Medications: Active Medications Acetaminophen (Tylenol -) 650 mg PO Q6H PRN PRN Reason: PAIN LEVEL 1-6 Last Admin: 09/02/17 18:34 Dose: 650 mg Aspirin (Ecotrin -) 81 mg PO DAILY [facility] Last Admin: 09/03/17 10:00 Dose: 81 mg Citalopram Hydrobromide (Celexa -) 10 mg PO DAILY [facility] Last Admin: 09/03/17 09:59 Dose: 10 mg Clopidogrel Bisulfate (Plavix -) 75 mg PO DAILY [facility] Last Admin: 09/03/17 10:00 Dose: 75 mg Docusate Sodium (Colace -) 300 mg PO HS [facility] Last Admin: 09/02/17 22:48 Dose: 300 mg Ergocalciferol (Drisdol -) 50,000 unit PO Q7D@1000 [facility] Last Admin: 09/01/17 11:14 Dose: 50,000 unit Piperacillin Sod/Tazobactam (Sod 3.375 gm/ Dextrose) 50 mls @ 100 mls/hr IVPB Q8H-IV [facility]; Protocol Last Admin: 09/03/17 10:01 Dose: 100 mls/hr Insulin Aspart (Novolog Vial Sliding Scale -) 1 vial SQ ACHS [facility]; Protocol Last Admin: 09/03/17 06:58 Dose: Not Given Insulin Detemir (Levemir Vial) 20 units SQ BID@0700,2200 [facility] Last Admin: 09/03/17 07:06 Dose: 20 units Lisinopril (Prinivil) 2.5 mg PO DAILY [facility] Last Admin: 09/03/17 09:59 Dose: 2.5 mg Magnesium Hydroxide (Milk Of Magnesia -) 30 ml PO DAILY [facility] Last Admin: 09/03/17 10:00 Dose: 30 ml Metoprolol Succinate (Toprol Xl -) 50 mg PO DAILY [facility] Last Admin: 09/03/17 10:00 Dose: 50 mg Oxycodone HCl (Roxicodone -) 10 mg PO Q6H PRN PRN Reason: PAIN LEVEL 7 - 10 Last Admin: 09/02/17 18:32 Dose: 10 mg Pantoprazole Sodium (Protonix -) 40 mg PO DAILY [facility] Last Admin: 09/03/17 10:00 Dose: 40 mg Spironolactone (Aldactone -) 25 mg PO DAILY [facility] Last Admin: 09/03/17 09:59 Dose: 25 mg - Objective Vital Signs: Vital Signs Temperature 97.5 F L 09/03/17 06:00 Pulse Rate 84 09/03/17 06:00 Respiratory Rate 20 09/03/17 06:00 Blood Pressure 119/75 09/03/17 06:00 O2 Sat by Pulse Oximetry (%) 98 09/02/17 09:00 Labs: CBC, BMP 09/03/17 07:00 09/03/17 07:00 INR, PTT INR 1.41 (0.82-1.09) H 09/03/17 07:00 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 Damian and Dr. Guaman. Pt will require being on both ASA and clopidogrel for at least one month ( until October 03) before they can be held for biopsy, unless procdure is felt to be emergent and risk of bleed on both medications (or risk of stent stenoss if medications are stopped early) is understood. 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 Life vest removed. Continue metoprolol, spironolactone; started ACEI. Code(s): I42.9 - CARDIOMYOPATHY, UNSPECIFIED Qualifiers: Cardiomyopathy type: ischemic Qualified Code(s): I25.5 - Ischemic cardiomyopathy (4) Diabetes Code(s): E11.9 - TYPE 2 DIABETES MELLITUS WITHOUT COMPLICATIONS (5) S/P coronary artery stent placement Code(s): Z95.5 - PRESENCE OF CORONARY ANGIOPLASTY IMPLANT AND GRAFT (6) Atrial fibrillation Code(s): I48.91 - UNSPECIFIED ATRIAL FIBRILLATION Qualifiers: Atrial fibrillation type: persistent Qualified Code(s): I48.1 - Persistent atrial fibrillation (7) Confusion Code(s): R41.0 - DISORIENTATION, UNSPECIFIED
== END 2017-09-03 12:55 | disposition home health service (06) | DRG 698 ==
LOC: JER 10:06 → JERBED 13:39 → J6S 21:41 → J4W 08-26 02:47
PROVIDERS: ADMIT Family Medicine; ATTEND Family Medicine
DX: N99.521 Infection of incontinent external stoma of urinary tract (principal); A41.9 Sepsis, unspecified organism; C78.7 Secondary malignant neoplasm of liver and intrahepatic bile duct; C78.00 Secondary malignant neoplasm of unspecified lung; N39.0 Urinary tract infection, site not specified; I50.22 Chronic systolic (congestive) heart failure; N13.30 Unspecified hydronephrosis; I13.0 Hypertensive heart and chronic kidney disease with heart failure and stage 1 through stage 4 chronic kidney disease, or unspecified chronic kidney disease; I48.92 Unspecified atrial flutter; I42.9 Cardiomyopathy, unspecified; E11.22 Type 2 diabetes mellitus with diabetic chronic kidney disease; N18.9 Chronic kidney disease, unspecified; I48.91 Unspecified atrial fibrillation; Y83.3 Surgical operation with formation of external stoma as the cause of abnormal reaction of the patient, or of later complication, without mention of misadventure at the time of the procedure; B95.2 Enterococcus as the cause of diseases classified elsewhere; B96.29 Other Escherichia coli [E. coli] as the cause of diseases classified elsewhere; I34.0 Nonrheumatic mitral (valve) insufficiency; Z85.51 Personal history of malignant neoplasm of bladder; Z79.4 Long term (current) use of insulin; E66.9 Obesity, unspecified; Z79.01 Long term (current) use of anticoagulants; Z68.33 Body mass index [BMI] 33.0-33.9, adult; E78.5 Hyperlipidemia, unspecified; I25.10 Atherosclerotic heart disease of native coronary artery without angina pectoris; Z95.5 Presence of coronary angioplasty implant and graft; M54.5 Low back pain; K59.00 Constipation, unspecified; R41.0 Disorientation, unspecified
CPT/HCPCS: 36415; 72131-TC; 74177-TC; 76775-TC; 80048; 80053; 81003; 81015; 82378; 82550; 82803; 82962; 83605; 83615; 83735; 84100; 84153; 84484; 85025; 85027; 85610; 85730; 86301; 87040; 87086; 87186; 93005; 93010; 93306-TC; 97116-GP; 97161-GP; 99285-25; J0131

== ENCOUNTER 2017-10-27 23:15 | Inpatient (IN) | payer MEDICARE, OTHER ==
--- NOTE | 2017-10-28 00:12 | PDOC ---
Attending Attestation - Medical Decision Making 10/28/17 00:37 Call placed to person to notify Ms. Regalado, case was discussed with resident. <Demond Pizano - Last Filed: 10/28/17 06:01> - Resident Resident Name: Edyta Wang - ED Attending Attestation I have performed the following: I have examined & evaluated the patient, The case was reviewed & discussed with the resident, I agree w/resident's findings & plan, Exceptions are as noted - HPI HPI: 10/28/17 01:27 The patient is a 67 year old Czech-speaking male, with a significant past medical history of metastatic bladder cancer to(s/p urostomy not on chemotherapy ), atrial fibrillation (unclear if on Warfarin), hypertension, diabetes, and hyperlipidemia, who presents to the emergency department with, generalized pain and weakness. Upon arrival, the patient is covered in feces with a full urostomy bag. He is unaware why he is currently in the ED and cannot remember his birthday or medications. The patient lives at home alone. He denies any recent fevers, chills, headache or dizziness. He denies any recent nausea, vomit, diarrhea or constipation. He denies any recent chest pain or shortness of breath. He denies any recent dysuria, frequency, urgency or hematuria. Allergies: NKDA Past surgical history: Urostomy placement. Cardiac catheterization (09/2017). Social History: Nonsmoker. Denies EtOH use and recreational drug use. Primary Care Physician: Dr. Morales Behavior Therapist: Dr. Tejada ([facility]) - Physicial Exam PE: 10/28/17 01:27 agree with resident exam - Medical Decision Making 10/28/17 01:28 67yo M MMP including metastatic bladder ca, AF presents to the ED with tachycardia, confusion, borderline low BP c/f sepsis. Will cover empirically and admit 10/28/17 06:14 Workup thus far remarkable for WBC 20.6 and +UA Pt with episode of diarrhea in ED c/f C.diff - sample sent Significant delay in dispo due to delays in obtaining CTH, CTA <Dallin Irene - Last Filed: 10/28/17 06:15> Attestations - Attestations 10/28/17 06:01 Documentation prepared by Demond Pizano, acting as medical illustrator for Dallin Irene MD. <Demond Pizano - Last Filed: 10/28/17 06:01>
[2017-10-28] MEDS ORDERED: SODIUM CHLORIDE 1,000 ML IV STA (00:16)
[2017-10-28 00:40] LABS: VENOUS PC02 37.7 mmHg (38-52); VENOUS PH 7.36 (7.32-7.42); VENOUS PO2 20.5 mmHg (28-48)
[2017-10-28 00:47] LABS: BASO % 0.2 % (0-2.0); EOS % 0.1 % (0-4.5); HEMATOCRIT 38.4 % (35.4-49); HEMOGLOBIN 12.5 GM/dL (11.7-16.9); LYMPH % 3.7 % (8-40); MCHC 32.4 g/dl (32.0-35.9); MEAN CELL VOLUME 83.2 fl (80-96); MEAN PLT VOLUME 9.1 fl (7.5-11.1); MONO % 8.2 % (3.8-10.2); NEUT % 87.8 % (42.8-82.8); PLATELET COUNT 341 K/MM3 (134-434); RBC 4.62 M/mm3 (4.00-5.60); RDW 16.4 % (11.9-15.9); WHITE BLOOD COUNT 20.6 K/mm3 (4.0-10.0)
[2017-10-28 00:48] LABS: URINE APPEARANCE CLOUDY; URINE BILIRUBIN NEGATIVE (<2.0 mg/dL); URINE COLOR DKYELLOW; URINE GLUCOSE (UA) NEGATIVE (NEGATIVE); URINE KETONE NEGATIVE (NEGATIVE); URINE NITRITE NEGATIVE (NEGATIVE); URINE UROBILINOGEN NEGATIVE mg/dL (0.2-1.0)
[2017-10-28 00:50] LABS: URINE LEUK ESTERASE 3+ (NEGATIVE); URINE PROTEIN 1+ (NEGATIVE)
[2017-10-28 00:53] LABS: EPI CELLS RARE /HPF (FEW); URINE BACTERIA MANY /hpf (NONE SEEN); URINE HYALINE CAST 6 /lpf; URINE MUCUS RARE; YEAST RARE
[2017-10-28 01:12] LABS: INR 1.46 (0.83-1.09); PROTHROMBIN TIME (PATIENT) 16.5 SEC (9.7-13.0)
[2017-10-28 01:14] LABS: ACTIVATED PTT 28.2 SECONDS (25.2-36.5)
--- NOTE | 2017-10-28 01:21 | PDOC ---
History of Present Illness - General Chief Complaint: Pain Stated Complaint: BACK PAIN Time Seen by Provider: 10/27/17 23:58 History Source: Patient Exam Limitations: No Limitations - History of Present Illness Initial Comments: This is a 67 YOM with h/o metastatic bladder cancer (with mets to liver and lung , s/p suprapubic catheter placement), and A-fib (on coumadin), CHF (on furosemide) who p/w rapid heart rate and generalized weakness. The patient himself is a somewhat poor historian and denies symptoms other than feeling generally weak/unwell. He denies f/c/n/v/d/c, abdominal pain, chest pain, SOB, n /t/w focally, dizziness, lightheadedness, black/bloody stool, or other symptoms. On discussion with the patient's emergency contact over the phone ( who identifies herself as his caregiver but not as a family member) the patient lives alone, has been unable to care for himself, and has been increasingly generally weak today. She notes he has the metastatic cancer and no family members living close by. He has no advance directive paperwork that the caregiver knows of. Past History - Past Medical History Allergies/Adverse Reactions: Allergies Allergy/AdvReac Type Severity Reaction Status Date / Time No Known Allergies Allergy Verified 10/27/17 23:31 Home Medications: Ambulatory Orders Aspirin [Aspirin EC] 81 mg PO DAILY 08/25/17 Citalopram Hydrobromide [Citalopram HBr] 10 mg PO DAILY 08/25/17 Clopidogrel Bisulfate [Plavix] 75 mg PO DAILY 08/25/17 Ergocalciferol (Vitamin D2) [Drisdol] 1.25 mg PO WEEKLY 08/25/17 Insulin Glargine,Hum.rec.anlog [Basaglar Kwikpen U-100] 60 unit SQ DAILY Oxycodone HCl/Acetaminophen [Endocet 5-325 Tablet] 1 each PO Q6H PRN 08/25/17 Pantoprazole Sodium [Protonix] 40 mg PO DAILY 08/25/17 Acetaminophen [Tylenol .Regular Strength -] 650 mg PO Q6H PRN #120 tablet MDD 6 09/03/17 Docusate Sodium [Colace -] 300 mg PO HS #90 capsule 09/03/17 Insulin Aspart [Novolog Flexpen] 20 unit SQ BID #4 insuln.pen 09/03/17 Lisinopril [Prinivil] 2.5 mg PO DAILY #30 tablet 09/03/17 Metoprolol Succinate [Toprol XL -] 50 mg PO DAILY #30 tab.sr.24h 09/03/17 Spironolactone [Aldactone -] 25 mg PO DAILY #30 tablet 09/03/17 Warfarin Sodium [Coumadin] 2 mg PO DAILY #30 tablet 09/03/17 Warfarin Sodium [Coumadin] 5 mg PO DAILY #3 tablet 09/03/17 Cancer: Yes (Bladder) COPD: No Diabetes: Yes HTN: Yes Hypercholesterolemia: Yes - Surgical History Abdominal Surgery: Yes (BLADDER) Neurologic Surgery: Yes - Immunization History Immunization Up to Date: No - Suicide/Smoking/Psychosocial Hx Smoking Status: No Smoking History: Never smoked Have you smoked in the past 12 months: No Number of Cigarettes Smoked Daily: 0 Information on smoking cessation initiated: No Hx Alcohol Use: No Drug/Substance Use Hx: No Substance Use Type: None Hx Substance Use Treatment: No Review of Systems - Review of Systems Able to Perform ROS?: No (altered) *Physical Exam - Vital Signs Last Vital Signs Temp Pulse Resp BP Pulse Ox 126 H 18 110/75 95 10/27/17 23:28 10/27/17 23:28 10/27/17 23:28 10/28/17 00:45 - Physical Exam General Appearance: Yes: Other (Older adult male patient, chronically ill appearing, answers simple questions but only about present symptomology, smells strongly of urine) HEENT: positive: EOMI, CANDELARIA, Hearing Grossly Normal, Other (slightly dry mucous membranes). negative: Scleral Icterus (R), Scleral Icterus (L), Pharyngeal Erythema, Tonsillar Exudate, Tonsillar Erythema, Rhinorrhea Neck: positive: Trachea midline, Supple. negative: Tender, Rigid, Lymphadenopathy (R), Lymphadenopathy (L) Respiratory/Chest: positive: Lungs Clear, Normal Breath Sounds. negative: Respiratory Distress, Labored Respiration Cardiovascular: positive: S1, S2, Tachycardia, Irregularly Irregular. negative : Edema, JVD Gastrointestinal/Abdominal: positive: Tender (minimal diffuse abdominal tenderness with mild right sided ttp), Protuberent, Other (suprapubic catheter bag in place, very full of joel urine). negative: Hernia Male Genitalia: positive: normal genitalia. negative: discharge Musculoskeletal: positive: Normal Inspection. negative: CVA Tenderness Neurologic: positive: manager universal II-XII NML intact (grossly), Alert. negative: Fully Oriented, EOM Palsy, Facial Droop, Numbness, Sensory Deficit ED Treatment Course - LABORATORY CBC & Chemistry Diagram: 10/30/17 05:30 10/30/17 05:30 - ADDITIONAL ORDERS Additional order review: Laboratory Results 10/28/17 10/28/17 00:21 00:21 VBG pH 7.36 POC VBG pCO2 37.7 L POC VBG pO2 20.5 L Mixed VBG HCO3 20.7 Urine Color Dkyellow Urine Appearance Cloudy Urine pH 6.0 Ur Specific [place] 1.011 Urine Protein 1+ H Urine Glucose (UA) Negative Urine Ketones Negative Urine Blood 1+ H Urine Nitrite Negative Urine Bilirubin Negative Urine Urobilinogen Negative Ur Leukocyte Esterase 3+ H Urine WBC (Auto) 46 Urine RBC (Auto) 4 Ur Epithelial Cells Rare Urine Bacteria Many Hyaline Casts 6 Urine Mucus Rare Urine Yeast Rare 10/28/17 00:21 RBC 4.62 MCV 83.2 MCHC 32.4 RDW 16.4 H MPV 9.1 Neutrophils % 87.8 H Lymphocytes % 3.7 L D Monocytes % 8.2 Eosinophils % 0.1 D Basophils % 0.2 - RADIOLOGY Radiology Studies Ordered: Category Date Time Status CHEST X-RAY PORTABLE* [RAD] Stat Radiology 10/28/17 00:16 Taken - Medications Given in the ED: ED Medications Discontinued Medications Generic Name Dose Route Start Last Admin Trade Name Freq PRN Reason Stop Dose Admin Sodium Chloride 1,000 mls @ 1,000 mls/hr 10/28/17 00:16 10/28/17 00:39 Normal Saline - IV 10/28/17 01:15 1,000 mls/hr ASDIR STA Administration Medical Decision Making - Medical Decision Making 10/28/17 02:50 Adult male Pt with metastatic bladder CA p/w palpitations, generalized weakness. Initial Vital Signs Pulse Resp BP Pulse Ox 126 H 18 110/75 95 10/27/17 23:28 10/27/17 23:28 10/27/17 23:28 10/27/17 23:28 Exam: As noted in Physical Exam section. DDX IBNLT: tachyarrhythmia (e.g. SVT, re-entrant tachycardia, WPW, Brugada, long QT, AF/AFL w/ RVR, MAT, ventricular dysrhythmia), ischemia (ACS), structural heart condition (MVP, mitral stenosis, atrial enlargement, HOCM), anxiety/panic, hypoxia, hemorrhage/anemia, PE, bronchitis/PNA, sepsis/shock, tamponade, metabolic (e.g. DKA, hypoglycemia), thyroid condition, catecholamine surge (e.g. pheochromocytoma), anxiety/panic disorder, medication effect, substance use, etc. W/U ordered: Monitor EKG CXR CBCD CMP Mg Phos Cardiac Panel UA UCx Chest CT with contrast (PE protocol), Head CT TX ordered: IV O2 Pacer pads applied IVF EKG: Reviewed; results as noted in ECG Review section. Laboratory Tests 10/28/17 10/28/17 10/28/17 00:21 00:21 00:21 WBC 20.6 H RBC 4.62 Hgb 12.5 Hct 38.4 MCV 83.2 MCH 27.0 MCHC 32.4 RDW 16.4 H Plt Count 341 D MPV 9.1 Absolute Neuts (auto) 18.0 H Neutrophils % 87.8 H Lymphocytes % 3.7 L D Monocytes % 8.2 Eosinophils % 0.1 D Basophils % 0.2 Nucleated RBC % 0 PT with INR 16.50 H INR 1.46 H PTT (Actin FS) 28.2 VBG pH POC VBG pCO2 POC VBG pO2 Mixed VBG HCO3 Sodium Potassium Chloride Carbon Dioxide Anion Gap BUN Creatinine Creat Clearance w eGFR Random Glucose Lactic Acid Calcium Total Bilirubin AST ALT Alkaline Phosphatase Creatine Kinase CK-MB (CK-2) Troponin I Total Protein Albumin Urine Color Dkyellow Urine Appearance Cloudy Urine pH 6.0 Ur Specific [place] 1.011 Urine Protein 1+ H Urine Glucose (UA) Negative Urine Ketones Negative Urine Blood 1+ H Urine Nitrite Negative Urine Bilirubin Negative Urine Urobilinogen Negative Ur Leukocyte Esterase 3+ H Urine WBC (Auto) 46 Urine RBC (Auto) 4 Ur Epithelial Cells Rare Urine Bacteria Many Hyaline Casts 6 Urine Mucus Rare Urine Yeast Rare Blood Type Antibody Screen 10/28/17 10/28/17 10/28/17 00:21 00:21 00:21 WBC RBC Hgb Hct MCV MCH MCHC RDW Plt Count MPV Absolute Neuts (auto) Neutrophils % Lymphocytes % Monocytes % Eosinophils % Basophils % Nucleated RBC % PT with INR INR PTT (Actin FS) VBG pH 7.36 POC VBG pCO2 37.7 L POC VBG pO2 20.5 L Mixed VBG HCO3 20.7 Sodium 131 L Potassium 4.1 Chloride 99 Carbon Dioxide 21 Anion Gap 11 BUN 41 H Creatinine 1.5 H Creat Clearance w eGFR 46.40 Random Glucose 148 H Lactic Acid 1.9 Calcium 9.1 Total Bilirubin 0.8 AST 27 ALT 25 Alkaline Phosphatase 250 H Creatine Kinase 103 CK-MB (CK-2) 2.75 Troponin I Total Protein 7.1 Albumin 2.3 L Urine Color Urine Appearance Urine pH Ur Specific [place] Urine Protein Urine Glucose (UA) Urine Ketones Urine Blood Urine Nitrite Urine Bilirubin Urine Urobilinogen Ur Leukocyte Esterase Urine WBC (Auto) Urine RBC (Auto) Ur Epithelial Cells Urine Bacteria Hyaline Casts Urine Mucus Urine Yeast Blood Type Antibody Screen 10/28/17 10/28/17 00:21 00:21 WBC RBC Hgb Hct MCV MCH MCHC RDW Plt Count MPV Absolute Neuts (auto) Neutrophils % Lymphocytes % Monocytes % Eosinophils % Basophils % Nucleated RBC % PT with INR INR PTT (Actin FS) VBG pH POC VBG pCO2 POC VBG pO2 Mixed VBG HCO3 Sodium Potassium Chloride Carbon Dioxide Anion Gap BUN Creatinine Creat Clearance w eGFR Random Glucose Lactic Acid Calcium Total Bilirubin AST ALT Alkaline Phosphatase Creatine Kinase CK-MB (CK-2) Troponin I < 0.02 Total Protein Albumin Urine Color Urine Appearance Urine pH Ur Specific [place] Urine Protein Urine Glucose (UA) Urine Ketones Urine Blood Urine Nitrite Urine Bilirubin Urine Urobilinogen Ur Leukocyte Esterase Urine WBC (Auto) Urine RBC (Auto) Ur Epithelial Cells Urine Bacteria Hyaline Casts Urine Mucus Urine Yeast Blood Type A POSITIVE Antibody Screen Negative Patient's rate has improved, 110s to low 120s. TX ordered: Vancomycin, Zosyn Vital Signs Temperature 98.2 F 10/28/17 02:54 Pulse Rate 133 H 10/28/17 03:35 Respiratory Rate 20 10/28/17 03:35 Blood Pressure 103/69 10/28/17 03:35 O2 Sat by Pulse Oximetry (%) 98 10/28/17 03:35 Reassessment: Patient states feeling improved, no pain. Vital Signs Temperature 98.2 F 09/19/18 02:54 Pulse Rate 142 H 10/28/17 06:50 Respiratory Rate 20 10/28/17 06:50 Blood Pressure 126/61 10/28/17 06:50 O2 Sat by Pulse Oximetry (%) 96 10/28/17 06:50 10/28/17 06:15 Repeat lactate was 1.4. BP re-checked to be 123/67 at this time. Ordered is 10 mg diltiazem as patient's rate intermittently increasing to 140s. 10/28/17 06:37 Patient's care will be signed out to oncoming attending physician at the end of my shift. Patient pending CT Chest PE protocol given h/o metastatic cancer. He will need admission for IV abx as he is unable to care for himself at home. Patient's admission will go to his primary team. Patient's care is endorsed to Dr. Mcdaniel at the end of my shift. *DC/Admit/Observation/Transfer Diagnosis at time of Disposition: Atrial fibrillation with rapid ventricular response, HEYDI (acute kidney injury) UTI (urinary tract infection) Qualifiers: Urinary tract infection type: acute cystitis Hematuria presence: without hematuria Qualified Code(s): N30.00 - Acute cystitis without hematuria - Discharge Dispostion Condition at time of disposition: Guarded - Referrals - Patient Instructions - Post Discharge Activity
[2017-10-28 01:22] LABS: ALBUMIN 2.3 g/dl (3.4-5.0); ANION GAP 11 MMOL/L (8-16); BILIRUBIN,TOTAL 0.8 mg/dL (0.2-1); BLOOD UREA NITROGEN 41 mg/dL (7-18); CALCIUM 9.1 mg/dL (8.5-10.1); CHLORIDE 99 mmol/L (98-107); CO2 21 mmol/L (21-32); CREATININE 1.5 mg/dL (0.55-1.3); GLUCOSE,RANDOM 148 mg/dL (74-106); POTASSIUM 4.1 mmol/L (3.5-5.1); SGOT/AST 27 U/L (15-37); SGPT/ALT 25 U/L (13-61); SODIUM 131 mmol/L (136-145); TOT PROT 7.1 g/dl (6.4-8.2)
[2017-10-28] MEDS ORDERED: PIPERACILLIN/TAZOB 4.5 GM 4.5 GM in DEXTROSE 5%-WATER 100 ML IVPB ONE (01:22)
[2017-10-28] MEDS ORDERED: VANCOMYCIN 1,500 MG in DEXTROSE 5%-WATER - 500 ML IVPB ONE (01:22)
[2017-10-28 01:24] LABS: ALK PHOS 250 U/L (45-117)
[2017-10-28] MEDS ORDERED: PIPERACILLIN/TAZOB 4.5 GM 4.5 GM/100 ML BAG IVPB ONE (02:30)
[2017-10-28 03:06] LABS: PLATELET ESTIMATE ADEQUATE
[2017-10-28] MEDS ORDERED: dilTIAZem HCL 50 MG/10 ML - 10 ML VIAL IVPUSH ONE (06:33)
[2017-10-28] MEDS ORDERED: dilTIAZem HCL 125 MG/25 ML - 25 ML VIAL ONE (06:51)
[2017-10-28] MEDS ORDERED: dilTIAZem HCL 30 MG TABLET (FP) ONE (07:22)
[2017-10-28] MEDS ORDERED: dilTIAZem HCL 30 MG TABLET (FP) PO ONE (07:50)
--- NOTE | 2017-10-28 09:19 | PDOC ---
*Physical Exam - Vital Signs Last Vital Signs Temp Pulse Resp BP Pulse Ox 98.2 F 118 H 18 111/68 98 10/28/17 02:54 10/28/17 08:00 10/28/17 08:00 10/28/17 08:00 10/28/17 08:00 ED Treatment Course - LABORATORY CBC & Chemistry Diagram: 10/31/17 05:30 10/31/17 05:30 - ADDITIONAL ORDERS Additional order review: Laboratory Results 10/28/17 10/28/17 10/28/17 03:28 00:21 00:21 PT with INR INR PTT (Actin FS) VBG pH POC VBG pCO2 POC VBG pO2 Mixed VBG HCO3 Sodium Potassium Chloride Carbon Dioxide Anion Gap BUN Creatinine Creat Clearance w eGFR Random Glucose Lactic Acid 1.4 Calcium Total Bilirubin AST ALT Alkaline Phosphatase Creatine Kinase CK-MB (CK-2) Troponin I < 0.02 Total Protein Albumin Urine Color Urine Appearance Urine pH Ur Specific [place] Urine Protein Urine Glucose (UA) Urine Ketones Urine Blood Urine Nitrite Urine Bilirubin Urine Urobilinogen Ur Leukocyte Esterase Urine WBC (Auto) Urine RBC (Auto) Ur Epithelial Cells Urine Bacteria Hyaline Casts Urine Mucus Urine Yeast Blood Type A POSITIVE Antibody Screen Negative 10/28/17 10/28/17 10/28/17 00:21 00:21 00:21 PT with INR INR PTT (Actin FS) VBG pH 7.36 POC VBG pCO2 37.7 L POC VBG pO2 20.5 L Mixed VBG HCO3 20.7 Sodium 131 L Potassium 4.1 Chloride 99 Carbon Dioxide 21 Anion Gap 11 BUN 41 H Creatinine 1.5 H Creat Clearance w eGFR 46.40 Random Glucose 148 H Lactic Acid 1.9 Calcium 9.1 Total Bilirubin 0.8 AST 27 ALT 25 Alkaline Phosphatase 250 H Creatine Kinase 103 CK-MB (CK-2) 2.75 Troponin I Total Protein 7.1 Albumin 2.3 L Urine Color Urine Appearance Urine pH Ur Specific [place] Urine Protein Urine Glucose (UA) Urine Ketones Urine Blood Urine Nitrite Urine Bilirubin Urine Urobilinogen Ur Leukocyte Esterase Urine WBC (Auto) Urine RBC (Auto) Ur Epithelial Cells Urine Bacteria Hyaline Casts Urine Mucus Urine Yeast Blood Type Antibody Screen 10/28/17 10/28/17 00:21 00:21 PT with INR 16.50 H INR 1.46 H PTT (Actin FS) 28.2 VBG pH POC VBG pCO2 POC VBG pO2 Mixed VBG HCO3 Sodium Potassium Chloride Carbon Dioxide Anion Gap BUN Creatinine Creat Clearance w eGFR Random Glucose Lactic Acid Calcium Total Bilirubin AST ALT Alkaline Phosphatase Creatine Kinase CK-MB (CK-2) Troponin I Total Protein Albumin Urine Color Dkyellow Urine Appearance Cloudy Urine pH 6.0 Ur Specific [place] 1.011 Urine Protein 1+ H Urine Glucose (UA) Negative Urine Ketones Negative Urine Blood 1+ H Urine Nitrite Negative Urine Bilirubin Negative Urine Urobilinogen Negative Ur Leukocyte Esterase 3+ H Urine WBC (Auto) 46 Urine RBC (Auto) 4 Ur Epithelial Cells Rare Urine Bacteria Many Hyaline Casts 6 Urine Mucus Rare Urine Yeast Rare Blood Type Antibody Screen 10/28/17 00:21 RBC 4.62 MCV 83.2 MCHC 32.4 RDW 16.4 H MPV 9.1 Neutrophils % 87.8 H Lymphocytes % 3.7 L D Monocytes % 8.2 Eosinophils % 0.1 D Basophils % 0.2 - Medications Given in the ED: ED Medications Discontinued Medications Generic Name Dose Route Start Last Admin Trade Name Blayneq PRN Reason Stop Dose Admin Diltiazem HCl 10 mg 10/28/17 06:33 10/28/17 07:00 Cardizem Injection - IVPUSH 10/28/17 06:34 10 mg ONCE ONE Administration Diltiazem HCl 30 mg 10/28/17 07:50 10/28/17 07:30 Cardizem - PO 10/28/17 07:51 30 mg ONCE ONE Administration Sodium Chloride 1,000 mls @ 1,000 mls/hr 10/28/17 00:16 10/28/17 00:39 Normal Saline - IV 10/28/17 01:15 1,000 mls/hr ASDIR STA Administration Vancomycin HCl 1,500 mg/ 500 mls @ 250 mls/hr 10/28/17 01:22 10/28/17 03:12 Dextrose IVPB 10/28/17 03:21 250 mls/hr ONCE ONE Administration Protocol Piperacillin Sod/Tazobactam 100 mls @ 200 mls/hr 10/28/17 01:22 10/28/17 02: 43 Sod 4.5 gm/ Dextrose IVPB 10/28/17 01:51 200 mls/hr ONCE ONE Administration Protocol Medical Decision Making - Medical Decision Making 10/28/17 09:08 I received this patient on sign out Plan is for admission to Dr Yang Pt given abx already HR improved s/p Cardizem IV/PO I received a call from pt son who would like him to be sent to [place] upon discharge I have asked pt to speak with case management in this regard *DC/Admit/Observation/Transfer Diagnosis at time of Disposition: Atrial fibrillation with rapid ventricular response, HEYDI (acute kidney injury) UTI (urinary tract infection) Qualifiers: Urinary tract infection type: acute cystitis Hematuria presence: without hematuria Qualified Code(s): N30.00 - Acute cystitis without hematuria - Discharge Dispostion Condition at time of disposition: Stable Decision to Admit order: Yes - Referrals - Patient Instructions - Post Discharge Activity
--- NOTE | 2017-10-28 10:27 | EKG ---
Test Reason : Blood Pressure : / mmHG Vent. Rate : 145 BPM Atrial Rate : 227 BPM P-R Int : 000 ms QRS Dur : 080 ms QT Int : 272 ms P-R-T Axes : 000 -18 245 degrees QTc Int : 422 ms ATRIAL FIBRILLATION WITH RAPID VENTRICULAR RESPONSE WITH PREMATURE VENTRICULAR OR ABERRANTLY CONDUCTED COMPLEXES LOW VOLTAGE QRS NONSPECIFIC ST AND T WAVE ABNORMALITY ABNORMAL ECG WHEN COMPARED WITH ECG OF 26-AUG-2017 08:53, NONSPECIFIC T WAVE ABNORMALITY HAS REPLACED INVERTED T WAVES IN ANTERIOR LEADS Confirmed by LIS CHAMBERS, ROMULO ([id number]) on 10/28/2017 10:27:27 AM Referred By: Confirmed By:ROMULO HAYS MD
[2017-10-28] MEDS ORDERED: ACETAMINOPHEN 325 MG TABLET (FP) PO PRN (10:39)
--- NOTE | 2017-10-28 11:44 | CON.CARD ---
Consult - History of Present Illness History of Present Illness: This is a 67 YOM with h/o metastatic bladder cancer (with mets to liver and lung , s/p suprapubic catheter placement), and A-fib (on coumadin), CHF (on furosemide) who p/w rapid heart rate and generalized weakness. The patient himself is a somewhat poor historian and denies symptoms other than feeling generally weak/unwell. He denies f/c/n/v/d/c, abdominal pain, chest pain, SOB, n /t/w focally, dizziness, lightheadedness, black/bloody stool, or other symptoms. On discussion with the patient's emergency contact over the phone ( who identifies herself as his caregiver but not as a family member) the patient lives alone, has been unable to care for himself, and has been increasingly generally weak today. She notes he has the metastatic cancer and no family members living close by. He has no advance directive paperwork that the caregiver knows of. Cardiac Cath: 07/03/17 LAD proximal 40%, mid 40%, distal 30% LCx mid 30% RCA mid 80%, RPDA 40% LVEDP ~ 20 mmHg No LV gram performed in order to minimize contrast load Also limited angiography performed due to elevated creatinine No significant on pull back Moderate pulmonary hypertension as noted PASP up to 50 mmHg Mean RA pressure ~ 8-10 mmHg Ongoing medical problems Hypertension Diabetes mellitus Bladder cancer Nonobstructive CAD A Fib - Past Medical History Cardio/Vascular: Yes: AFIB, CAD, HTN, Hyperlipdemia Pulmonary: Yes: Sleep Apnea (rule out) Renal/: Yes: Renal Inusuff, Cancer (bladder) Endocrine: Yes: Diabetes Mellitus - Past Surgical History Past Surgical History: Yes: Stent - Alcohol/Substance Use Hx Alcohol Use: No History of Substance Use: reports: None - Smoking History Smoking history: Never smoked Have you smoked in the past 12 months: No Aproximately how many cigarettes per day: 0 - Social History ADL: Independent History of Recent Travel: Yes ([place]) Home Medications - Allergies Allergies/Adverse Reactions: Allergies Allergy/AdvReac Type Severity Reaction Status Date / Time No Known Allergies Allergy Verified 10/27/17 23:31 - Home Medications Home Medications: Ambulatory Orders Aspirin [Aspirin EC] 81 mg PO DAILY 08/25/17 Citalopram Hydrobromide [Citalopram HBr] 10 mg PO DAILY 08/25/17 Clopidogrel Bisulfate [Plavix] 75 mg PO DAILY 08/25/17 Ergocalciferol (Vitamin D2) [Drisdol] 1.25 mg PO WEEKLY 08/25/17 Insulin Glargine,Hum.rec.anlog [Basaglar Kwikpen U-100] 60 unit SQ DAILY Oxycodone HCl/Acetaminophen [Endocet 5-325 Tablet] 1 each PO Q6H PRN 08/25/17 Pantoprazole Sodium [Protonix] 40 mg PO DAILY 08/25/17 Acetaminophen [Tylenol .Regular Strength -] 650 mg PO Q6H PRN #120 tablet MDD 6 09/03/17 Docusate Sodium [Colace -] 300 mg PO HS #90 capsule 09/03/17 Insulin Aspart [Novolog Flexpen] 20 unit SQ BID #4 insuln.pen 09/03/17 Lisinopril [Prinivil] 2.5 mg PO DAILY #30 tablet 09/03/17 Metoprolol Succinate [Toprol XL -] 50 mg PO DAILY #30 tab.sr.24h 09/03/17 Spironolactone [Aldactone -] 25 mg PO DAILY #30 tablet 09/03/17 Warfarin Sodium [Coumadin] 2 mg PO DAILY #30 tablet 09/03/17 Warfarin Sodium [Coumadin] 5 mg PO DAILY #3 tablet 09/03/17 Review of Systems - Review of Systems Constitutional: reports: No Symptoms Eyes: reports: No Symptoms HENT: reports: No Symptoms Neck: reports: No Symptoms Cardiovascular: reports: Palpitations Gastrointestinal: reports: No Symptoms Genitourinary: reports: No Symptoms Breasts: reports: No Symptoms Reported Musculoskeletal: reports: No Symptoms Integumentary: reports: No Symptoms Neurological: reports: No Symptoms Endocrine: reports: No Symptoms Hematology/Lymphatic: reports: No Symptoms Psychiatric: reports: No Symptoms Vital Signs: Vital Signs Temperature 98.2 F 10/28/17 02:54 Pulse Rate 118 H 10/28/17 08:00 Respiratory Rate 18 10/28/17 08:00 Blood Pressure 111/68 10/28/17 08:00 O2 Sat by Pulse Oximetry (%) 98 10/28/17 08:00 Constitutional: Yes: Well Nourished, No Distress, Calm Eyes: Yes: WNL, Conjunctiva Clear, EOM Intact HENT: Yes: WNL, Atraumatic, Normocephalic Neck: Yes: WNL, Supple, Trachea Midline Respiratory: Yes: WNL, Regular, CTA Bilaterally Gastrointestinal: Yes: WNL, Normal Bowel Sounds Renal/: Yes: WNL Cardiovascular: Yes: Pulse Irregular Musculoskeletal: Yes: WNL Extremities: Yes: WNL Integumentary: Yes: WNL Neurological: Yes: WNL, Alert, Oriented ...Motor Strength: WNL Psychiatric: Yes: WNL, Alert, Oriented - Other Data Labs, Other Data: CBC, BMP 10/28/17 00:21 10/28/17 00:21 INR, PTT INR 1.46 (0.83-1.09) H 10/28/17 00:21 Troponin, BNP 10/28/17 00:21 Troponin I < 0.02 Troponin, BNP 10/28/17 00:21 Troponin I < 0.02 Imaging - Results Chest X-ray: Image Reviewed (no i/e) EKG: Image Reviewed ([facility]) Problem List - Problems (1) Atrial fibrillation with rapid ventricular response Code(s): I48.91 - UNSPECIFIED ATRIAL FIBRILLATION (2) UTI (urinary tract infection) Code(s): N39.0 - URINARY TRACT INFECTION, SITE NOT SPECIFIED Qualifiers: Urinary tract infection type: acute cystitis Hematuria presence: without hematuria Qualified Code(s): N30.00 - Acute cystitis without hematuria (3) Atrial fibrillation Code(s): I48.91 - UNSPECIFIED ATRIAL FIBRILLATION Qualifiers: Atrial fibrillation type: persistent Qualified Code(s): I48.1 - Persistent atrial fibrillation (4) Bladder cancer Code(s): C67.9 - MALIGNANT NEOPLASM OF BLADDER, UNSPECIFIED (5) 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 (6) CAD (coronary artery disease) Code(s): I25.10 - ATHSCL HEART DISEASE OF [place] CORONARY ARTERY W/O ANG PCTRS Qualifiers: Coronary Disease-Associated Artery/Lesion type: [place] artery [place] vs. transplanted heart: [place] heart Associated angina: without angina Qualified Code(s): I25.10 - Atherosclerotic heart disease of [place] coronary artery without angina pectoris (7) CHF (congestive heart failure) Code(s): I50.9 - HEART FAILURE, UNSPECIFIED (8) 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 Code(s): C67.9 - MALIGNANT NEOPLASM OF BLADDER, UNSPECIFIED; C78.7 - SECONDARY MALIG NEOPLASM OF LIVER AND INTRAHEPATIC BILE DUCT (9) Cardiomyopathy Code(s): I42.9 - CARDIOMYOPATHY, UNSPECIFIED Qualifiers: Cardiomyopathy type: ischemic Qualified Code(s): I25.5 - Ischemic cardiomyopathy (10) Chronic anticoagulation Code(s): Z79.01 - [employer] MACHINE (CURRENT) USE OF ANTICOAGULANTS (11) Confusion Code(s): R41.0 - DISORIENTATION, UNSPECIFIED (12) Constipation Code(s): K59.00 - CONSTIPATION, UNSPECIFIED (13) Diabetes Code(s): E11.9 - TYPE 2 DIABETES MELLITUS WITHOUT COMPLICATIONS (14) Hematuria Code(s): R31.9 - HEMATURIA, UNSPECIFIED (15) Hyperlipidemia Code(s): E78.5 - HYPERLIPIDEMIA, UNSPECIFIED Qualifiers: Hyperlipidemia type: pure hypercholesterolemia Qualified Code(s): E78.00 - Pure hypercholesterolemia, unspecified; E78.0 - Pure hypercholesterolemia (16) Hypertension Code(s): I10 - ESSENTIAL (PRIMARY) HYPERTENSION Qualifiers: Hypertension type: essential hypertension Qualified Code(s): I10 - Essential (primary) hypertension (17) Metastasis Code(s): C79.9 - SECONDARY MALIGNANT NEOPLASM OF UNSPECIFIED SITE (18) Obesity Code(s): E66.9 - OBESITY, UNSPECIFIED (19) Rectal bleed Code(s): K62.5 - HEMORRHAGE OF ANUS AND RECTUM (20) Renal dysfunction Code(s): N28.9 - DISORDER OF KIDNEY AND URETER, UNSPECIFIED (21) Renal insufficiency Code(s): N28.9 - DISORDER OF KIDNEY AND URETER, UNSPECIFIED (22) Renal insufficiency, mild Code(s): N28.9 - DISORDER OF KIDNEY AND URETER, UNSPECIFIED (23) S/P coronary artery stent placement Code(s): Z95.5 - PRESENCE OF CORONARY ANGIOPLASTY IMPLANT AND GRAFT (24) SOB (shortness of breath) Code(s): R06.02 - SHORTNESS OF BREATH (25) Sepsis due to urinary tract infection Code(s): A41.9 - SEPSIS, UNSPECIFIED ORGANISM; N39.0 - URINARY TRACT INFECTION, SITE NOT SPECIFIED (26) Supratherapeutic INR Code(s): R79.1 - ABNORMAL COAGULATION PROFILE Assessment/Plan This is a 67 YOM with h/o metastatic bladder cancer (with mets to liver and lung , s/p suprapubic catheter placement), and A-fib (on coumadin), CHF (on furosemide) who p/w rapid heart rate and generalized weakness. Plan cont ac metoprolol for rate control echo will f/u
[2017-10-28] MEDS: CLOPIDOGREL BISULFATE 75 MG TABLET (FP) PO SCH (12:12)
--- NOTE | 2017-10-28 15:20 | ECHO ---
Name: MIRTA HANDY Exam:Adult Echocardiogram Study Date: 10/28/2017 02:04 PM Age: 67 yrs Reason For Study: ef Height: 63 in Weight: 265 lb BSA: 2.2 m2 MMode/2D Measurements & Calculations LVIDd: 4.0 cm Ao root diam: 3.1 cm LVIDs: 3.3 cm LA dimension: 3.1 cm EDV(Teich): 69.1 ml LVOT diam: 2.0 cm ESV(Teich): 45.5 ml Doppler Measurements & Calculations MV E max humza: 47.0 cm/sec Med Peak E' Humza: 8.9 cm/sec Med E/e': 5.3 Lat Peak E' Humza: 11.2 cm/sec Lat E/e': 4.2 Procedure A two-dimensional transthoracic echocardiogram with color flow and Doppler was performed. The study w as technically difficult with many images being suboptimal in quality. Left Ventricle The left ventricle is grossly normal size. Left ventricular systolic function is severely reduced. Th ere is severe global hypokinesis of the left ventricle. Regional wall motion abnormalities cannot be exclude d due to limited visualization. Right Ventricle The right ventricle is not well visualized. Atria Normal left and right atrial size and function. Mitral Valve The mitral valve is not well visualized. There is no mitral valve stenosis. There is trace to mild mi tral regurgitation. Tricuspid Valve The tricuspid valve is not well visualized. There is no tricuspid stenosis. There was insufficient TR detected to calculate RV systolic pressure. Aortic Valve The aortic valve is not well visualized. No hemodynamically significant valvular aortic stenosis. No aortic regurgitation is present. Pulmonic Valve The pulmonic valve is not well visualized. There is no pulmonic valvular stenosis. There is no pulmon ic valvular regurgitation. Great Vessels The aortic root is normal size. Pericardium/Pleura There is no pericardial effusion. Interpretation Summary The left ventricle is grossly normal size. Left ventricular systolic function is severely reduced. There is severe global hypokinesis of the left ventricle. Regional wall motion abnormalities cannot be excluded due to limited visualization. There is trace to mild mitral regurgitation. There was insufficient TR detected to calculate RV systolic pressure. MD Grant Michelle 10/28/2017 03:20 PM
--- NOTE | 2017-10-28 18:04 | HP ---
Admitting History and Physical - Primary Care Physician PCP: Iris Morales I (Parminder Yang) - Admission Chief Complaint: Rapid Afib. Sepsis History of Present Illness: This is a 67 YOM with h/o metastatic bladder cancer (with mets to liver and lung , s/p suprapubic catheter placement), and A-fib (on coumadin), CHF (on furosemide) who p/w rapid heart rate and generalized weakness. The patient himself is a somewhat poor historian and denies symptoms other than feeling generally weak/unwell. He denies f/c/n/v/d/c, abdominal pain, chest pain, SOB, n /t/w focally, dizziness, lightheadedness, black/bloody stool, or other symptoms. On discussion with the patient's emergency contact over the phone ( who identifies herself as his caregiver but not as a family member) the patient lives alone, has been unable to care for himself, and has been increasingly generally weak today. She notes he has the metastatic cancer and no family members living close by. He has no advance directive paperwork that the caregiver knows of. History Source: Medical Record Limitations to Obtaining History: Clinical Condition - Past Medical History Cardiovascular: Yes: AFIB, CAD, HTN, Hyperlipdemia Pulmonary: Yes: Sleep Apnea (rule out) Renal/: Yes: Renal Inusuff, Cancer (bladder) Heme/Onc: Yes: Anemia Endocrine: Yes: Diabetes Mellitus - Past Surgical History Past Surgical History: Yes: Stent - Smoking History Smoking history: Never smoked Have you smoked in the past 12 months: No Aproximately how many cigarettes per day: 0 - Alcohol/Substance Use Hx Alcohol Use: No History of Substance Use: reports: None - Social History ADL: Independent History of Recent Travel: Yes ([place]) Home Medications - Allergies Allergies/Adverse Reactions: Allergies Allergy/AdvReac Type Severity Reaction Status Date / Time No Known Allergies Allergy Verified 10/27/17 23:31 - Home Medications Home Medications: Ambulatory Orders Aspirin [Aspirin EC] 81 mg PO DAILY 08/25/17 Citalopram Hydrobromide [Citalopram HBr] 10 mg PO DAILY 08/25/17 Clopidogrel Bisulfate [Plavix] 75 mg PO DAILY 08/25/17 Ergocalciferol (Vitamin D2) [Drisdol] 1.25 mg PO WEEKLY 08/25/17 Insulin Glargine,Hum.rec.anlog [Basaglar Kwikpen U-100] 60 unit SQ DAILY Oxycodone HCl/Acetaminophen [Endocet 5-325 Tablet] 1 each PO Q6H PRN 08/25/17 Pantoprazole Sodium [Protonix] 40 mg PO DAILY 08/25/17 Acetaminophen [Tylenol .Regular Strength -] 650 mg PO Q6H PRN #120 tablet MDD 6 09/03/17 Docusate Sodium [Colace -] 300 mg PO HS #90 capsule 09/03/17 Insulin Aspart [Novolog Flexpen] 20 unit SQ BID #4 insuln.pen 09/03/17 Lisinopril [Prinivil] 2.5 mg PO DAILY #30 tablet 09/03/17 Metoprolol Succinate [Toprol XL -] 50 mg PO DAILY #30 tab.sr.24h 09/03/17 Spironolactone [Aldactone -] 25 mg PO DAILY #30 tablet 09/03/17 Warfarin Sodium [Coumadin] 2 mg PO DAILY #30 tablet 09/03/17 Warfarin Sodium [Coumadin] 5 mg PO DAILY #3 tablet 09/03/17 Review of Systems - Review of Systems Constitutional: reports: Weakness Eyes: reports: No Symptoms HENT: reports: No Symptoms Neck: reports: No Symptoms Cardiovascular: reports: No Symptoms Respiratory: reports: No Symptoms Gastrointestinal: reports: No Symptoms Genitourinary: reports: No Symptoms Breasts: reports: No Symptoms Reported Musculoskeletal: reports: No Symptoms Integumentary: reports: No Symptoms Neurological: reports: No Symptoms Endocrine: reports: No Symptoms Hematology/Lymphatic: reports: No Symptoms Psychiatric: reports: No Symptoms Physical Examination Vital Signs: Vital Signs Temperature 98.3 F 10/28/17 12:48 Pulse Rate 114 H 10/28/17 12:48 Respiratory Rate 18 10/28/17 12:48 Blood Pressure 103/74 10/28/17 12:48 O2 Sat by Pulse Oximetry (%) 98 10/28/17 08:00 Constitutional: Yes: No Distress, Calm, Obese Labs: CBC, BMP 10/28/17 00:21 10/28/17 00:21
[2017-10-28] MEDS ORDERED: WARFARIN NA 5 MG TABLET (UD) ONE (18:17)
[2017-10-28] MEDS: WARFARIN NA 7.5 MG TABLET (FP) PO SCH (18:21)
--- NOTE | 2017-10-28 18:22 | PN ---
Progress Note (short form) - Note Progress Note: ID consult dictated imp/reccd metastatic bladder cancer with ileal conduit leukocytosis lives alone came to ED weak and covered in feces awake no complaints empiric ceftriaxone pending cultures ?leukemoid reaction renal ultrasound Problem List - Problems (1) Leukocytosis Code(s): D72.829 - ELEVATED WHITE BLOOD CELL COUNT, UNSPECIFIED (2) 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
[2017-10-28] MEDS ORDERED: CEFTRIAXONE 2 GM/100 ML BAG IVPB ONE (19:44)
[2017-10-28] MEDS: CEFTRIAXONE 2 GM in DEXTROSE 5%-WATER 100 ML IVPB SCH (19:48)
[2017-10-28] MEDS: DOCUSATE SODIUM 100 MG CAPSULE (FP) PO SCH (22:03)
[2017-10-28] MEDS: INSULIN SLIDING SCALE (NOVOLOG) 1 VIAL SQ SCH (22:04)
[2017-10-28] MEDS ORDERED: METOPROLOL TARTRATE 25 MG TABLET (FP) PO ONE (23:30)
[2017-10-28] MEDS ORDERED: METOPROLOL TARTRATE 5 MG/5 ML VIAL IVPUSH ONE (23:30)
--- NOTE | 2017-10-29 00:01 | CONS ---
DATE OF CONSULTATION: DATE OF DICTATION: 10/28/2017 INFECTIOUS DISEASE CONSULTATION REQUESTING PHYSICIAN: Parminder Yang M.D. CONSULTING PHYSICIAN: Jair Lubin M.D. HISTORY OF PRESENT ILLNESS: This is a 67-year-old man. Most of the history was from the chart. He lives alone. He presented to the emergency room covered in feces with overflowing urostomy bag. He has a history of metastatic bladder cancer. Never got any chemotherapy, with metastases to liver and lung, who has a urostomy. He has been unable to care for himself with generally increasing weakness. He was sent to the emergency room in the condition as stated previously. There was no recorded fever. He has a history of atrial fibrillation, coronary artery disease, hypertension, hyperlipidemia, sleep apnea, renal insufficiency, bladder cancer, anemia, diabetes. SURGICAL HISTORY: Notable for what appears to be an ileal conduit. He has a history of a stent as well. SOCIAL HISTORY: Negative for cigarette or substance use. ALLERGIES: He has no known drug allergies. MEDICATION: Include aspirin, Celexa, Plavix, Colace, Prinivil, metoprolol, spironolactone and warfarin. He is currently resting comfortably without any complaints. He is currently awake and alert. REVIEW OF SYSTEMS: He denies all complaints. He was seen in August by oncology, at which time he was noted to have bladder cancer with an ileal conduit. He has not seen the surgeon since that time. He was noted to have extensive metastatic disease. PHYSICAL EXAMINATION: GENERAL: He is alert. Temperature 98.3, pulse 114, blood pressure 103/74, respiratory rate 18, saturating 97% on room air. HEENT: Normocephalic. Eyes are anicteric. NECK: Supple. LUNGS: Diminished breath sounds at the bases. HEART: Tachycardic. ABDOMEN: Firm. He has got a ileostomy that is full of urine. EXTREMITIES: Without edema. LABORATORY: Notable for a white count of 20, hemoglobin 12.5, platelets 341, INR 1.4. His BUN and creatinine are 41 and 1.5. His urinalysis is 3+ leukocytes with [address] white cells[address] His chest CT reveals no evidence of PE and multiple pulmonary masses and liver masses. He had a head CT which shows no evidence of CVA. IMPRESSION: 1. In summary, this is a 67-year-old man with metastatic bladder cancer with ileal conduit. He has got leukocytosis. He lives alone. I would cover him empirically with ceftriaxone pending cultures. This could all be a leukemoid reaction. He also has had no imaging of his abdomen and pelvis, given the elevated creatinine, I think it would be reasonable to at least obtain a renal ultrasound. 2. History of coronary artery disease. He is status post stent. Further recommendations to follow. JAIR LUBIN M.D. [id number] MTDD
[2017-10-29 01:25] VITALS: BMI 30.4
[2017-10-29] MEDS: INSULIN SLIDING SCALE (NOVOLOG) 1 VIAL SQ SCH ×4 (06:07→21:44)
[2017-10-29] MEDS: INSULIN (LEVEMIR) 100 UNITS/ML UNITS SQ SCH (06:41)
[2017-10-29 08:05] LABS: BASO % 0.4 % (0-2.0); EOS % 0.2 % (0-4.5); HEMATOCRIT 35.1 % (35.4-49); HEMOGLOBIN 11.3 GM/dL (11.7-16.9); MCH 26.8 pg (25.7-33.7); MCHC 32.3 g/dl (32.0-35.9); MEAN PLT VOLUME 9.4 fl (7.5-11.1); MONO % 7.6 % (3.8-10.2); NEUT % 87.8 % (42.8-82.8); PLATELET COUNT 284 K/MM3 (134-434); RBC 4.23 M/mm3 (4.00-5.60); RDW 16.5 % (11.9-15.9); WHITE BLOOD COUNT 15.4 K/mm3 (4.0-10.0)
--- NOTE | 2017-10-29 08:27 | PN ---
Progress Note, Physician - Current Medication List Current Medications: Active Medications Acetaminophen (Tylenol -) 650 mg PO Q6H PRN PRN Reason: PAIN LEVEL 1-6 Acetaminophen (Tylenol -) 325 mg PO Q6H PRN PRN Reason: PAIN 7-10 Aspirin (Ecotrin -) 81 mg PO DAILY [facility] Citalopram Hydrobromide (Celexa -) 10 mg PO DAILY [facility] Clopidogrel Bisulfate (Plavix -) 75 mg PO DAILY [facility] Last Admin: 10/28/17 12:12 Dose: 75 mg Docusate Sodium (Colace -) 300 mg PO HS [facility] Last Admin: 10/28/17 22:03 Dose: 300 mg Ceftriaxone Sodium 2 gm/ (Dextrose) 100 mls @ 200 mls/hr IVPB DAILY [facility]; Protocol Last Admin: 10/28/17 19:48 Dose: 200 mls/hr Influenza Virus Vaccine Quadrival (Flulaval Quad ) 60 mcg IM .ONCE ONE Stop: 10/29/17 10:01 Insulin Aspart (Novolog Vial Sliding Scale -) 1 vial SQ ACHS [facility]; Protocol Last Admin: 10/29/17 06:07 Dose: Not Given Insulin Detemir (Levemir Vial) 60 units SQ DAILY@0700 [facility] Last Admin: 10/29/17 06:41 Dose: Not Given Lisinopril (Prinivil) 2.5 mg PO DAILY [facility] Metoprolol Succinate (Toprol Xl -) 50 mg PO DAILY [facility] Last Admin: 10/28/17 20:54 Dose: 50 mg Oxycodone HCl (Roxicodone -) 5 mg PO Q6H PRN PRN Reason: PAIN 7-10 Pantoprazole Sodium (Protonix -) 40 mg PO DAILY [facility] Spironolactone (Aldactone -) 25 mg PO DAILY [facility] Warfarin Sodium (Coumadin -) 7.5 mg PO DAILY@1800 [facility] Last Admin: 10/28/17 18:21 Dose: 7.5 mg - Objective Vital Signs: Vital Signs Temperature 98.1 F 10/29/17 05:50 Pulse Rate 98 H 10/29/17 05:50 Respiratory Rate 18 10/29/17 05:50 Blood Pressure 94/67 10/29/17 05:50 O2 Sat by Pulse Oximetry (%) 98 10/29/17 06:00 Cardiovascular: Yes: S1, S2 Respiratory: Yes: Regular, CTA Bilaterally Gastrointestinal: Yes: Normal Bowel Sounds, Soft. No: Tenderness Neurological: Yes: Alert Labs: CBC, BMP 10/29/17 06:45 INR, PTT INR 1.46 (0.83-1.09) H 10/28/17 00:21 <Parminder Yang - Last Filed: 10/29/17 10:55> Chief Complaint: AWAKE ALERT EVENTS AND NOTES REVIEWED DENIES CHEST PAIN OR SOB - Current Medication List Current Medications: Active Medications Acetaminophen (Tylenol -) 650 mg PO Q6H PRN PRN Reason: PAIN LEVEL 1-6 Acetaminophen (Tylenol -) 325 mg PO Q6H PRN PRN Reason: PAIN 7-10 Last Admin: 10/29/17 14:39 Dose: 325 mg Aspirin (Ecotrin -) 81 mg PO DAILY [facility] Last Admin: 10/29/17 10:07 Dose: 81 mg Citalopram Hydrobromide (Celexa -) 10 mg PO DAILY [facility] Last Admin: 10/29/17 10:07 Dose: 10 mg Clopidogrel Bisulfate (Plavix -) 75 mg PO DAILY [facility] Last Admin: 10/29/17 10:07 Dose: 75 mg Docusate Sodium (Colace -) 300 mg PO HS [facility] Last Admin: 10/29/17 21:45 Dose: 300 mg Ceftriaxone Sodium 2 gm/ (Dextrose) 100 mls @ 200 mls/hr IVPB DAILY [facility]; Protocol Last Admin: 10/29/17 10:07 Dose: 200 mls/hr Insulin Aspart (Novolog Vial Sliding Scale -) 1 vial SQ ACHS [facility]; Protocol Last Admin: 10/30/17 06:13 Dose: Not Given Insulin Detemir (Levemir Vial) 60 units SQ DAILY@0700 [facility] Last Admin: 10/30/17 06:12 Dose: Not Given Lisinopril (Prinivil) 2.5 mg PO DAILY [facility] Last Admin: 10/29/17 10:05 Dose: 2.5 mg Metoprolol Succinate (Toprol Xl -) 50 mg PO DAILY [facility] Last Admin: 10/29/17 10:07 Dose: 50 mg Oxycodone HCl (Roxicodone -) 5 mg PO Q6H PRN PRN Reason: PAIN 7-10 Last Admin: 10/29/17 14:39 Dose: 5 mg Pantoprazole Sodium (Protonix -) 40 mg PO DAILY [facility] Last Admin: 10/29/17 10:05 Dose: 40 mg Spironolactone (Aldactone -) 25 mg PO DAILY [facility] Last Admin: 10/29/17 10:07 Dose: 25 mg Warfarin Sodium (Coumadin -) 7.5 mg PO DAILY@1800 [facility] Last Admin: 10/29/17 17:02 Dose: 7.5 mg - Objective Vital Signs: Vital Signs Temperature 98.4 F 10/30/17 06:00 Pulse Rate 74 10/30/17 06:00 Respiratory Rate 16 10/30/17 06:00 Blood Pressure 106/60 10/30/17 06:00 O2 Sat by Pulse Oximetry (%) 97 10/30/17 06:00 Constitutional: Yes: No Distress Eyes: Yes: WNL HENT: Yes: WNL Neck: Yes: WNL Cardiovascular: Yes: Pulse Irregular Respiratory: Yes: WNL Gastrointestinal: Yes: WNL Genitourinary: Yes: [place] Present Musculoskeletal: Yes: Muscle Weakness Extremities: Yes: WNL Edema: No Peripheral Pulses WNL: Yes Integumentary: Yes: WNL Wound/Incision: Yes: Clean/Dry Neurological: Yes: WNL ...Motor Strength: LLE, RLE Psychiatric: Yes: WNL Labs: CBC, BMP 10/30/17 05:30 10/30/17 05:30 INR, PTT INR 3.27 (0.83-1.09) H 10/30/17 05:30 <Enrique Hernadez - Last Filed: 10/30/17 10:08> Problem List - Problems (1) Leukocytosis Assessment/Plan: -Follow Cultures -Abx Per ID -Follow Labs Code(s): D72.829 - ELEVATED WHITE BLOOD CELL COUNT, UNSPECIFIED (2) 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 Assessment/Plan: -Oncology Consult Code(s): C67.9 - MALIGNANT NEOPLASM OF BLADDER, UNSPECIFIED; C78.00 - SECONDARY MALIGNANT NEOPLASM OF UNSPECIFIED LUNG (3) Atrial fibrillation Assessment/Plan: -Home meds -Monitor on Tele -Cardio on board Code(s): I48.91 - UNSPECIFIED ATRIAL FIBRILLATION Qualifiers: Atrial fibrillation type: persistent Qualified Code(s): I48.1 - Persistent atrial fibrillation (4) CHF (congestive heart failure) Assessment/Plan: -No evidence of failure Code(s): I50.9 - HEART FAILURE, UNSPECIFIED (5) Diabetes Assessment/Plan: -Bgm -Follow Labs Code(s): E11.9 - TYPE 2 DIABETES MELLITUS WITHOUT COMPLICATIONS <Parminder Yang - Last Filed: 10/29/17 10:55> - Problems (1) Leukocytosis Code(s): D72.829 - ELEVATED WHITE BLOOD CELL COUNT, UNSPECIFIED (2) UTI (urinary tract infection) Code(s): N39.0 - URINARY TRACT INFECTION, SITE NOT SPECIFIED Qualifiers: Urinary tract infection type: acute cystitis Hematuria presence: without hematuria Qualified Code(s): N30.00 - Acute cystitis without hematuria (3) Atrial fibrillation Code(s): I48.91 - UNSPECIFIED ATRIAL FIBRILLATION Qualifiers: Atrial fibrillation type: persistent Qualified Code(s): I48.1 - Persistent atrial fibrillation (4) 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 transplanted heart: [place] heart Associated angina: without angina Qualified Code(s): I25.10 - Atherosclerotic heart disease of [place] coronary artery without angina pectoris (6) Diabetes Code(s): E11.9 - TYPE 2 DIABETES MELLITUS WITHOUT COMPLICATIONS (7) Hematuria Code(s): R31.9 - HEMATURIA, UNSPECIFIED <Enrique Hernadez - Last Filed: 10/30/17 10:08> Assessment/Plan CEFTRIAXONE CONTINUE FOR UTI FOLLOW CULTURES OOB TO CHAIR WITH PT CONTINUE TRUJILLO CATH WILL NEED SNF HOLD COUMADIN TODAY FOR INR 3.27 <Enrique Hernadez - Last Filed: 10/30/17 10:08>
[2017-10-29 08:59] LABS: CHLORIDE 102 mmol/L (98-107); POTASSIUM 4.8 mmol/L (3.5-5.1); SODIUM 133 mmol/L (136-145)
[2017-10-29 09:16] LABS: ALBUMIN 2.1 g/dl (3.4-5.0); ALK PHOS 234 U/L (45-117); ANION GAP 11 MMOL/L (8-16); BILIRUBIN,TOTAL 0.6 mg/dL (0.2-1); BLOOD UREA NITROGEN 33 mg/dL (7-18); CALCIUM 9.4 mg/dL (8.5-10.1); CO2 20 mmol/L (21-32); CREATININE 1.2 mg/dL (0.55-1.3); GLUCOSE,RANDOM 134 mg/dL (74-106); SGOT/AST 20 U/L (15-37); SGPT/ALT 24 U/L (13-61); TOT PROT 6.4 g/dl (6.4-8.2)
[2017-10-29 09:17] LABS: INR 1.77 (0.83-1.09)
[2017-10-29] MEDS ORDERED: DEXTROSE 5%-WATER 100 ML IVPB ONE (09:55)
[2017-10-29] MEDS ORDERED: FLU VACCINE QUAD 60 MCG/0.5 ML (MDV 18-19) IM ONE (10:00)
[2017-10-29] MEDS: LISINOPRIL 5 MG TABLET (FP) PO SCH (10:05)
[2017-10-29] MEDS: PANTOPRAZOLE 40 MG TABLET (FP) PO SCH (10:05)
[2017-10-29] MEDS: CEFTRIAXONE 2 GM in DEXTROSE 5%-WATER 100 ML IVPB SCH (10:07)
[2017-10-29] MEDS: SPIRONOLACTONE 25 MG TABLET (FP) PO SCH (10:07)
[2017-10-29] MEDS: CLOPIDOGREL BISULFATE 75 MG TABLET (FP) PO SCH (10:07)
[2017-10-29] MEDS: ASPIRIN COATED 81 MG TABLET.EC PO SCH (10:07)
[2017-10-29] MEDS: CITALOPRAM HYDROBROMIDE 10 MG TABLET (FP) PO SCH (10:07)
--- NOTE | 2017-10-29 11:20 | CONSULT ---
Consultation: REQUESTING PROVIDER: CONSULT REQUEST: We have been asked to medically evaluate this patient for ( bladder cancer). HISTORY OF PRESENT ILLNESS: Patient is a poor historian. 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 Patient is a 66 year old Nepalese speaking male who presented to the ED via EMS for weakness and lower abdominal pain. As per the patient, he was by himself at home and his was at the 7th floor, he called EMS due to weakness. But per the EMR records, his youth care worker was contacted by the ED physician who stated he lives alone and doesn't have family members around. Patient stated he had severe abdominal pain, 6/10 in intensity, non radiating, not associated with nausea or vomiting. Further history couldn't be obtained as patient is not oriented. Recent Travel: Denies PAST MEDICAL HISTORY: Bladder CA s/p resection/urostomy, DM, HTN, Afib, CHF, CAD s.p stent placement in 07/27 s/p life vest PAST SURGICAL HISTORY:ileal conduit; lumbar spinal surgery 20yrs ago Social History: Smoking: prior Alcohol: pt denies Drugs: pt denies Family History: Unknown. REVIEW OF SYSTEMS: CONSTITUTIONAL: Absent: fever, chills, diaphoresis, generalized weakness, malaise, loss of appetite, weight change HEENT: Absent: rhinorrhea, nasal congestion, throat pain, throat swelling, difficulty swallowing, mouth swelling, ear pain, eye pain, visual changes CARDIOVASCULAR: Absent: chest pain, syncope, palpitations, irregular heart rate, lightheadedness , peripheral edema RESPIRATORY: Absent: cough, shortness of breath, dyspnea with exertion, orthopnea, wheezing, stridor, hemoptysis GASTROINTESTINAL: Present: abdominal pain Absent: abdominal distension, nausea, vomiting, diarrhea, constipation, melena , hematochezia GENITOURINARY: Absent: dysuria, frequency, urgency, hesitancy, hematuria, flank pain, genital pain MUSCULOSKELETAL: Absent: myalgia, arthralgia, joint swelling, back pain, neck pain SKIN: Absent: rash, itching, pallor HEMATOLOGIC/IMMUNOLOGIC: Absent: easy bleeding, easy bruising, lymphadenopathy, frequent infections ENDOCRINE: Absent: unexplained weight gain, unexplained weight loss, heat intolerance, cold intolerance NEUROLOGIC: Absent: headache, focal weakness or paresthesias, dizziness, unsteady gait, seizure, mental status changes, bladder or bowel incontinence PSYCHIATRIC: Absent: anxiety, depression, suicidal or homicidal ideation, hallucinations. PHYSICAL EXAMINATION Vital Signs - 24 hr 10/28/17 10/28/17 10/28/17 12:48 18:09 20:05 Temperature 98.3 F 98.2 F Pulse Rate 121 H Pulse Rate [ 114 H 120 H Apical] Respiratory 18 16 18 Rate Blood Pressure 120/63 Blood Pressure 103/74 114/76 [Right Arm] O2 Sat by Pulse 100 98 Oximetry (%) 10/28/17 10/28/17 10/29/17 22:00 23:47 01:54 Temperature 98.5 F 97.7 F Pulse Rate 125 H 128 H 110 H Pulse Rate [ Apical] Respiratory 18 18 Rate Blood Pressure 135/67 117/58 101/54 Blood Pressure [Right Arm] O2 Sat by Pulse Oximetry (%) 10/29/17 10/29/17 05:50 06:00 Temperature 98.1 F Pulse Rate 98 H Pulse Rate [ Apical] Respiratory 18 Rate Blood Pressure 94/67 Blood Pressure [Right Arm] O2 Sat by Pulse 98 Oximetry (%) GENERAL: Elderly male, lying comfortably in bed, Awake, alert, and oriented x 1 , in no acute distress. HEAD: Normal with no signs of trauma. EYES: EOM intact, no pallor or icterus. EARS, NOSE, THROAT: Ears normal. Moist mucous membranes. NECK: Supple. LUNGS: Breath sounds equal, clear to auscultation bilaterally. No wheezes, and no crackles. No accessory muscle use. HEART: Irregularly irregular rate and rhythm, normal S1 and S2 without murmur. ABDOMEN: ileal conduit in place draining clear urine. Soft, nontender, no organomegaly. MUSCULOSKELETAL: Normal range of motion at all joints. No bony deformities or tenderness. No CVA tenderness. UPPER EXTREMITIES: 2+ pulses, warm, well-perfused. No cyanosis. No clubbing. Cap refill <2 seconds. No peripheral edema. LOWER EXTREMITIES: 2+ pulses, warm, well-perfused. No calf tenderness. No peripheral edema. NEUROLOGICAL: No facial droop. Normal speech. Gait not observed. PSYCHIATRIC: Cooperative. Good eye contact. Appropriate mood and affect. SKIN: Warm, dry, normal turgor, no rashes or lesions noted. Laboratory Results - last 24 hr 10/28/17 10/28/17 10/29/17 15:23 22:02 05:49 WBC RBC Hgb Hct MCV MCH MCHC RDW Plt Count MPV Absolute Neuts (auto) Neutrophils % Lymphocytes % Monocytes % Eosinophils % Basophils % Nucleated RBC % PT with INR INR Sodium Potassium Chloride Carbon Dioxide Anion Gap BUN Creatinine Creat Clearance w eGFR POC Glucometer 182 141 Random Glucose Calcium Total Bilirubin AST ALT Alkaline Phosphatase Creatine Kinase 49 Troponin I < 0.02 B-Natriuretic Peptide 4093.30 H Total Protein Albumin 10/29/17 10/29/17 10/29/17 06:45 06:45 06:45 WBC 15.4 H RBC 4.23 Hgb 11.3 L Hct 35.1 L MCV 83.0 MCH 26.8 MCHC 32.3 RDW 16.5 H Plt Count 284 MPV 9.4 Absolute Neuts (auto) 13.5 H Neutrophils % 87.8 H Lymphocytes % 4.0 L Monocytes % 7.6 Eosinophils % 0.2 D Basophils % 0.4 Nucleated RBC % 0 PT with INR 20.00 H INR 1.77 H Sodium 133 L Potassium 4.8 Chloride 102 Carbon Dioxide 20 L Anion Gap 11 BUN 33 H Creatinine 1.2 Creat Clearance w eGFR > 60 POC Glucometer Random Glucose 134 H Calcium 9.4 Total Bilirubin 0.6 AST 20 ALT 24 Alkaline Phosphatase 234 H Creatine Kinase 42 Troponin I < 0.02 B-Natriuretic Peptide Total Protein 6.4 Albumin 2.1 L Active Medications Generic Name Dose Route Start Last Admin Trade Name Freq PRN Reason Stop Dose Admin Acetaminophen 650 mg 10/28/17 10:39 Tylenol - PO Q6H PRN PAIN LEVEL 1-6 Acetaminophen 325 mg 10/28/17 10:55 Tylenol - PO Q6H PRN PAIN 7-10 Aspirin 81 mg 10/29/17 10:00 10/29/17 10:07 Ecotrin - PO 81 mg DAILY [facility] Administration Citalopram Hydrobromide 10 mg 10/29/17 10:00 10/29/17 10:07 Celexa - PO 10 mg DAILY [facility] Administration Clopidogrel Bisulfate 75 mg 10/28/17 10:45 10/29/17 10:07 Plavix - PO 75 mg DAILY [facility] Administration Docusate Sodium 300 mg 10/28/17 22:00 10/28/17 22:03 Colace - PO 300 mg HS [facility] Administration Ceftriaxone Sodium 2 gm/ 100 mls @ 200 mls/hr 10/28/17 18:30 10/29/17 10:07 Dextrose IVPB 200 mls/hr DAILY [facility] Administration Protocol Insulin Aspart 1 vial 10/28/17 22:00 10/29/17 06:07 Novolog Vial Sliding Scale - SQ Not Given ACHS [facility] Protocol Insulin Detemir 60 units 10/29/17 07:00 10/29/17 06:41 Levemir Vial SQ Not Given DAILY@0700 [facility] Lisinopril 2.5 mg 10/29/17 10:00 10/29/17 10:05 Prinivil PO 2.5 mg DAILY [facility] Administration Metoprolol Succinate 50 mg 10/28/17 21:00 10/29/17 10:07 Toprol Xl - PO 50 mg DAILY [facility] Administration Oxycodone HCl 5 mg 10/28/17 10:55 Roxicodone - PO Q6H PRN PAIN 7-10 Pantoprazole Sodium 40 mg 10/29/17 10:00 10/29/17 10:05 Protonix - PO 40 mg DAILY [facility] Administration Spironolactone 25 mg 10/29/17 10:00 10/29/17 10:07 Aldactone - PO 25 mg DAILY [facility] Administration Warfarin Sodium 7.5 mg 10/28/17 18:00 10/28/17 18:21 Coumadin - PO 7.5 mg DAILY@1800 [facility] Administration Patient is a 66 year old Nepalese speaking male who presented to the ED via EMS for weakness and lower abdominal pain. ASSESSMENT Multiple pulmonary masses Bladder CA s/p resection/urostomy Leukocytosis DM HTN Afib on Coumadin CAD s/p stent in 07/27 CHF PLAN Leukocytosis likely due to infection vs reactive WBC count was 20--> 15 today. On IV Ceftriaxone. Received one dose of Vancomycin Repeat CBC in AM. Multiple pulmonary mass likely metastatic disease Will discuss if IR guided biopsy can be done. Ct head neg for mets Bladder CA s/p resection/urostomy Pt reports he had resection 7 yrs ago, underwent chemo and radiation. Details unknown. Will try to get the name of his oncologist from his youth care worker. Case discussed with Dr. Collier: We will continue to follow the patient. Thank you for this consultative opportunity. Visit type - Emergency Visit Emergency Visit: Yes ED Registration Date: 10/28/17 Care time: The patient presented to the Emergency Department on the above date and was hospitalized for further evaluation of their emergent condition. - New Patient This patient is new to me today: Yes Date on this admission: 10/29/17 - Critical Care Critical Care patient: No
[2017-10-29] MEDS: ACETAMINOPHEN 325 MG TABLET (FP) PO PRN (14:39)
[2017-10-29] MEDS: oxyCODONE HCL 5 MG TABLET PO PRN (14:39)
--- NOTE | 2017-10-29 15:32 | CONSULT ---
Consult Consult Specialty:: Nephrology Reason for Consultation:: CKD - History of Present Illness Chief Complaint: generalized weakness History of Present Illness: Pt is a 67 year old male with pmhx of metastatic bladder cancer, urostomy, a-fib , DM, CKD, and HTN who presents to the ER with confusion and generalized weakness. He was confused and had generalized weakness. His creatinine was elevated and I was called to evaluate him. He does not remember what happened. He denies shortness of breath or palpitations. He denies fevers. He was also found to have leukocytosis. - History Source History Provided By: Medical Record - Past Medical History Cardio/Vascular: Yes: AFIB, CAD, HTN, Hyperlipdemia Pulmonary: Yes: Sleep Apnea (rule out) Renal/: Yes: Renal Inusuff, Cancer (bladder) Endocrine: Yes: Diabetes Mellitus - Past Surgical History Past Surgical History: Yes: Stent - Alcohol/Substance Use Hx Alcohol Use: No History of Substance Use: reports: None - Smoking History Smoking history: Never smoked Have you smoked in the past 12 months: No Aproximately how many cigarettes per day: 0 - Social History ADL: Independent History of Recent Travel: Yes ([place]) Home Medications - Allergies Allergies/Adverse Reactions: Allergies Allergy/AdvReac Type Severity Reaction Status Date / Time No Known Allergies Allergy Verified 10/27/17 23:31 - Home Medications Home Medications: Ambulatory Orders Aspirin [Aspirin EC] 81 mg PO DAILY 08/25/17 Citalopram Hydrobromide [Citalopram HBr] 10 mg PO DAILY 08/25/17 Clopidogrel Bisulfate [Plavix] 75 mg PO DAILY 08/25/17 Ergocalciferol (Vitamin D2) [Drisdol] 1.25 mg PO WEEKLY 08/25/17 Insulin Glargine,Hum.rec.anlog [Basaglar Kwikpen U-100] 60 unit SQ DAILY Oxycodone HCl/Acetaminophen [Endocet 5-325 Tablet] 1 each PO Q6H PRN 08/25/17 Pantoprazole Sodium [Protonix] 40 mg PO DAILY 08/25/17 Acetaminophen [Tylenol .Regular Strength -] 650 mg PO Q6H PRN #120 tablet MDD 6 09/03/17 Docusate Sodium [Colace -] 300 mg PO HS #90 capsule 09/03/17 Insulin Aspart [Novolog Flexpen] 20 unit SQ BID #4 insuln.pen 09/03/17 Lisinopril [Prinivil] 2.5 mg PO DAILY #30 tablet 09/03/17 Metoprolol Succinate [Toprol XL -] 50 mg PO DAILY #30 tab.sr.24h 09/03/17 Spironolactone [Aldactone -] 25 mg PO DAILY #30 tablet 09/03/17 Warfarin Sodium [Coumadin] 2 mg PO DAILY #30 tablet 09/03/17 Warfarin Sodium [Coumadin] 5 mg PO DAILY #3 tablet 09/03/17 Family Disease History - Family Disease History Family History: Unable to Obtain Review of Systems - Review of Systems Constitutional: reports: Malaise. denies: Chills, Fever Eyes: reports: No Symptoms HENT: reports: No Symptoms Neck: reports: No Symptoms Cardiovascular: reports: No Symptoms Respiratory: reports: No Symptoms Gastrointestinal: reports: No Symptoms Musculoskeletal: reports: Muscle Weakness Integumentary: reports: No Symptoms Neurological: reports: No Symptoms Endocrine: reports: No Symptoms Hematology/Lymphatic: reports: No Symptoms Psychiatric: reports: No Symptoms Physical Exam Vital Signs: Vital Signs Temperature 98 F 10/29/17 14:41 Pulse Rate 74 10/29/17 14:41 Respiratory Rate 18 10/29/17 14:41 Blood Pressure 117/68 10/29/17 14:41 O2 Sat by Pulse Oximetry (%) 96 10/29/17 10:00 Constitutional: Yes: Calm Eyes: Yes: Conjunctiva Clear HENT: Yes: Atraumatic Neck: Yes: Supple Cardiovascular: Yes: S1, S2 Respiratory: Yes: CTA Bilaterally Gastrointestinal: Yes: Normal Bowel Sounds, Soft Renal/: Yes: Other (ileal cnduit) Musculoskeletal: Yes: WNL Edema: Yes Edema: LLE: Trace, RLE: Trace Neurological: Yes: Confusion Labs: CBC, BMP 10/29/17 06:45 10/29/17 06:45 Laboratory Tests 09/01/17 09/03/17 10/28/17 05:30 07:00 00:21 WBC 20.6 H Hgb BUN Creatinine 1.2 1.2 Urine Protein Urine Blood 10/28/17 10/28/17 10/29/17 00:21 00:21 06:45 WBC 15.4 H Hgb 11.3 L BUN Creatinine 1.5 H Urine Protein 1+ H Urine Blood 1+ H 10/29/17 06:45 WBC Hgb BUN 33 H Creatinine 1.2 Urine Protein Urine Blood Imaging - Results Ultrasound: Report Reviewed Problem List - Problems (1) Atrial fibrillation with rapid ventricular response Code(s): I48.91 - UNSPECIFIED ATRIAL FIBRILLATION (2) Leukocytosis Code(s): D72.829 - ELEVATED WHITE BLOOD CELL COUNT, UNSPECIFIED (3) UTI (urinary tract infection) Code(s): N39.0 - URINARY TRACT INFECTION, SITE NOT SPECIFIED Qualifiers: Urinary tract infection type: acute cystitis Hematuria presence: without hematuria Qualified Code(s): N30.00 - Acute cystitis without hematuria (4) Bladder cancer Code(s): C67.9 - MALIGNANT NEOPLASM OF BLADDER, UNSPECIFIED Assessment/Plan Current Medications Generic Name Dose Route Start Last Admin Trade Name Freq PRN Reason Stop Dose Admin Acetaminophen 650 mg 10/28/17 10:39 Tylenol - PO Q6H PRN PAIN LEVEL 1-6 Acetaminophen 325 mg 10/28/17 10:55 10/29/17 14:39 Tylenol - PO 325 mg Q6H PRN Administration PAIN 7-10 Aspirin 81 mg 10/29/17 10:00 10/29/17 10:07 Ecotrin - PO 81 mg DAILY [facility] Administration Citalopram Hydrobromide 10 mg 10/29/17 10:00 10/29/17 10:07 Celexa - PO 10 mg DAILY [facility] Administration Clopidogrel Bisulfate 75 mg 10/28/17 10:45 10/29/17 10:07 Plavix - PO 75 mg DAILY [facility] Administration Docusate Sodium 300 mg 10/28/17 22:00 10/28/17 22:03 Colace - PO 300 mg HS [facility] Administration Ceftriaxone Sodium 2 gm/ 100 mls @ 200 mls/hr 10/28/17 18:30 10/29/17 10:07 Dextrose IVPB 200 mls/hr DAILY [facility] Administration Protocol Insulin Aspart 1 vial 10/28/17 22:00 10/29/17 16:34 Novolog Vial Sliding Scale - SQ Not Given ACHS [facility] Protocol Insulin Detemir 60 units 10/29/17 07:00 10/29/17 06:41 Levemir Vial SQ Not Given DAILY@0700 [facility] Lisinopril 2.5 mg 10/29/17 10:00 10/29/17 10:05 Prinivil PO 2.5 mg DAILY [facility] Administration Metoprolol Succinate 50 mg 10/28/17 21:00 10/29/17 10:07 Toprol Xl - PO 50 mg DAILY [facility] Administration Oxycodone HCl 5 mg 10/28/17 10:55 10/29/17 14:39 Roxicodone - PO 5 mg Q6H PRN Administration PAIN 7-10 Pantoprazole Sodium 40 mg 10/29/17 10:00 10/29/17 10:05 Protonix - PO 40 mg DAILY [facility] Administration Spironolactone 25 mg 10/29/17 10:00 10/29/17 10:07 Aldactone - PO 25 mg DAILY [facility] Administration Warfarin Sodium 7.5 mg 10/28/17 18:00 10/29/17 17:02 Coumadin - PO 7.5 mg DAILY@1800 [facility] Administration Impression 1. CKD 2. altered mental status 3. a-fib 4. DM 5. HTN 6. hx bladder cancer 7. leukocytosis 8. r/o uti Plan - renal function has returned to baseline - monitor lytes - bilateral renal cysts on ultrasound - follow cultures - cont abx - ileal conduit care
[2017-10-29] MEDS: WARFARIN NA 7.5 MG TABLET (FP) PO SCH (17:02)
--- NOTE | 2017-10-29 21:27 | PN ---
Teaching Attending Note Name of Resident: Elly Quiñones ATTENDING PHYSICIAN STATEMENT I saw and evaluated the patient. I reviewed the resident's note and discussed the case with the resident. I agree with the resident's findings and plan as documented. Bladder CA s/p resection/urostomy Multiple lung masses, liver masses Leukocytosis DM HTN Afib on Coumadin CAD s/p stent in 07/27. 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 Bahena --- biopsy of metastatic site was bein contemplated Also poor performance status and goals of care were being discussed at this time patient on coumadin/asa/plavix --will discuss with cardiology/IR MAy be a candidate for immunotherapy
[2017-10-29] MEDS: DOCUSATE SODIUM 100 MG CAPSULE (FP) PO SCH (21:45)
[2017-10-30] MEDS: INSULIN (LEVEMIR) 100 UNITS/ML UNITS SQ SCH (06:12)
[2017-10-30] MEDS: INSULIN SLIDING SCALE (NOVOLOG) 1 VIAL SQ SCH ×4 (06:13→21:37)
[2017-10-30 06:53] LABS: BASO % 0.4 % (0-2.0); EOS % 0.5 % (0-4.5); HEMATOCRIT 32.6 % (35.4-49); HEMOGLOBIN 10.5 GM/dL (11.7-16.9); LYMPH % 4.8 % (8-40); MCH 26.7 pg (25.7-33.7); MCHC 32.2 g/dl (32.0-35.9); MEAN PLT VOLUME 9.2 fl (7.5-11.1); MONO % 7.6 % (3.8-10.2); NEUT % 86.7 % (42.8-82.8); PLATELET COUNT 274 K/MM3 (134-434); RBC 3.93 M/mm3 (4.00-5.60); RDW 16.2 % (11.9-15.9); WHITE BLOOD COUNT 12.5 K/mm3 (4.0-10.0)
[2017-10-30 07:04] LABS: INR 3.27 (0.83-1.09)
[2017-10-30 07:48] LABS: ALK PHOS 207 U/L (45-117); ANION GAP 10 MMOL/L (8-16); BILIRUBIN,TOTAL 0.3 mg/dL (0.2-1); BLOOD UREA NITROGEN 37 mg/dL (7-18); CALCIUM 9.1 mg/dL (8.5-10.1); CHLORIDE 104 mmol/L (98-107); CO2 21 mmol/L (21-32); CREATININE 1.3 mg/dL (0.55-1.3); GLUCOSE,RANDOM 100 mg/dL (74-106); POTASSIUM 4.2 mmol/L (3.5-5.1); SGOT/AST 13 U/L (15-37); SGPT/ALT 21 U/L (13-61); SODIUM 135 mmol/L (136-145)
[2017-10-30] MEDS ORDERED: DEXTROSE 5%-WATER 100 ML IVPB ONE (09:34)
[2017-10-30] MEDS ORDERED: PT OWN MED DRAWER 7, Y5N ONE (09:35)
[2017-10-30] MEDS: ASPIRIN COATED 81 MG TABLET.EC PO SCH (10:09)
[2017-10-30] MEDS: CITALOPRAM HYDROBROMIDE 10 MG TABLET (FP) PO SCH (10:09)
[2017-10-30] MEDS: PANTOPRAZOLE 40 MG TABLET (FP) PO SCH (10:09)
[2017-10-30] MEDS: SPIRONOLACTONE 25 MG TABLET (FP) PO SCH (10:09)
[2017-10-30] MEDS: CLOPIDOGREL BISULFATE 75 MG TABLET (FP) PO SCH (10:09)
[2017-10-30] MEDS: LISINOPRIL 5 MG TABLET (FP) PO SCH (10:10)
[2017-10-30] MEDS: CEFTRIAXONE 2 GM in DEXTROSE 5%-WATER 100 ML IVPB SCH (10:10)
[2017-10-30] MEDS: ACETAMINOPHEN 325 MG TABLET (FP) PO PRN (10:12)
[2017-10-30] MEDS: oxyCODONE HCL 5 MG TABLET PO PRN (10:12)
--- NOTE | 2017-10-30 14:51 | PN ---
Progress Note (short form) - Note Progress Note: awake knows his name, denies any pain no diarrhea Vital Signs Period Temp Pulse Resp BP Sys/Maynard Pulse Ox Last 24 Hr 98.4 F-98.8 F 70-98 16-18 91-106/55-63 97-97 cor-rrr lungs clear, decreased bs at bases abd soft,nt +urostomy ext no edema CBC, BMP 10/30/17 05:30 10/30/17 05:30 Microbiology 10/28/17 01:51 Stool Clostridium difficile (PCR) - Preliminary 10/28/17 00:21 Urine - Urine Suprapubic Urine Culture - Preliminary Escherichia Coli Group D Strep Or Entero Coccus 10/28/17 00:21 Blood - Peripheral Venous Blood Culture - Preliminary NO GROWTH OBTAINED AFTER 48 HOURS, INCUBATION TO CONTINUE FOR 3 DAYS. 10/28/17 00:21 Blood - Peripheral Venous Blood Culture - Preliminary NO GROWTH OBTAINED AFTER 48 HOURS, INCUBATION TO CONTINUE FOR 3 DAYS. 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
--- NOTE | 2017-10-30 14:58 | PN ---
Progress Note, Physician History of Present Illness: Pt seen and examined at bedside. He is awake and appears comfortable. He denies shortness of breath. - Current Medication List Current Medications: Active Medications Acetaminophen (Tylenol -) 650 mg PO Q6H PRN PRN Reason: PAIN LEVEL 1-6 Acetaminophen (Tylenol -) 325 mg PO Q6H PRN PRN Reason: PAIN 7-10 Last Admin: 10/30/17 10:12 Dose: 325 mg Amoxicillin (Amoxicillin -) 500 mg PO TID [facility] Aspirin (Ecotrin -) 81 mg PO DAILY [facility] Last Admin: 10/30/17 10:09 Dose: 81 mg Citalopram Hydrobromide (Celexa -) 10 mg PO DAILY [facility] Last Admin: 10/30/17 10:09 Dose: 10 mg Clopidogrel Bisulfate (Plavix -) 75 mg PO DAILY [facility] Last Admin: 10/30/17 10:09 Dose: 75 mg Docusate Sodium (Colace -) 300 mg PO HS [facility] Last Admin: 10/29/17 21:45 Dose: 300 mg Insulin Aspart (Novolog Vial Sliding Scale -) 1 vial SQ [facility]; Protocol Last Admin: 10/30/17 11:31 Dose: Not Given Insulin Detemir (Levemir Vial) 60 units SQ DAILY@0700 [facility] Last Admin: 10/30/17 06:12 Dose: Not Given Lisinopril (Prinivil) 2.5 mg PO DAILY [facility] Last Admin: 10/30/17 10:10 Dose: 2.5 mg Metoprolol Succinate (Toprol Xl -) 50 mg PO DAILY [facility] Last Admin: 10/30/17 10:09 Dose: 50 mg Oxycodone HCl (Roxicodone -) 5 mg PO Q6H PRN PRN Reason: PAIN 7-10 Last Admin: 10/30/17 10:12 Dose: 5 mg Pantoprazole Sodium (Protonix -) 40 mg PO DAILY [facility] Last Admin: 10/30/17 10:09 Dose: 40 mg Spironolactone (Aldactone -) 25 mg PO DAILY [facility] Last Admin: 10/30/17 10:09 Dose: 25 mg Warfarin Sodium (Coumadin -) 7.5 mg PO DAILY@1800 [facility] Last Admin: 10/29/17 17:02 Dose: 7.5 mg - Objective Vital Signs: Vital Signs Temperature 98.4 F 10/30/17 06:00 Pulse Rate 74 10/30/17 06:00 Respiratory Rate 16 10/30/17 06:00 Blood Pressure 106/60 10/30/17 06:00 O2 Sat by Pulse Oximetry (%) 97 10/30/17 06:00 Constitutional: Yes: Calm Eyes: Yes: Conjunctiva Clear HENT: Yes: Atraumatic Cardiovascular: Yes: S1, S2 Respiratory: Yes: CTA Bilaterally Gastrointestinal: Yes: Soft Genitourinary: Yes: Other (ileal conduit) Musculoskeletal: Yes: WNL Edema: No Neurological: Yes: Oriented Labs: CBC, BMP 10/30/17 05:30 10/30/17 05:30 INR, PTT INR 3.27 (0.83-1.09) H 10/30/17 05:30 Problem List - Problems (1) Atrial fibrillation with rapid ventricular response Code(s): I48.91 - UNSPECIFIED ATRIAL FIBRILLATION (2) Leukocytosis Code(s): D72.829 - ELEVATED WHITE BLOOD CELL COUNT, UNSPECIFIED (3) UTI (urinary tract infection) Code(s): N39.0 - URINARY TRACT INFECTION, SITE NOT SPECIFIED Qualifiers: Urinary tract infection type: acute cystitis Hematuria presence: without hematuria Qualified Code(s): N30.00 - Acute cystitis without hematuria (4) Bladder cancer Code(s): C67.9 - MALIGNANT NEOPLASM OF BLADDER, UNSPECIFIED Assessment/Plan Current Medications Generic Name Dose Route Start Last Admin Trade Name Freq PRN Reason Stop Dose Admin Acetaminophen 650 mg 10/28/17 10:39 Tylenol - PO Q6H PRN PAIN LEVEL 1-6 Acetaminophen 325 mg 10/28/17 10:55 10/30/17 10:12 Tylenol - PO 325 mg Q6H PRN Administration PAIN 7-10 Amoxicillin 500 mg 10/30/17 22:00 Amoxicillin - PO TID [facility] Aspirin 81 mg 10/29/17 10:00 10/30/17 10:09 Ecotrin - PO 81 mg DAILY [facility] Administration Citalopram Hydrobromide 10 mg 10/29/17 10:00 10/30/17 10:09 Celexa - PO 10 mg DAILY [facility] Administration Clopidogrel Bisulfate 75 mg 10/28/17 10:45 10/30/17 10:09 Plavix - PO 75 mg DAILY [facility] Administration Docusate Sodium 300 mg 10/28/17 22:00 10/29/17 21:45 Colace - PO 300 mg HS [facility] Administration Insulin Aspart 1 vial 10/28/17 22:00 10/30/17 11:31 Novolog Vial Sliding Scale - SQ Not Given ACHS [facility] Protocol Insulin Detemir 60 units 10/29/17 07:00 10/30/17 06:12 Levemir Vial SQ Not Given DAILY@0700 [facility] Lactobacillus Acidophilus 1 tab 10/30/17 15:00 Bacid - PO DAILY [facility] Lisinopril 2.5 mg 10/29/17 10:00 10/30/17 10:10 Prinivil PO 2.5 mg DAILY [facility] Administration Metoprolol Succinate 50 mg 10/28/17 21:00 10/30/17 10:09 Toprol Xl - PO 50 mg DAILY [facility] Administration Oxycodone HCl 5 mg 10/28/17 10:55 10/30/17 10:12 Roxicodone - PO 5 mg Q6H PRN Administration PAIN 7-10 Pantoprazole Sodium 40 mg 10/29/17 10:00 10/30/17 10:09 Protonix - PO 40 mg DAILY [facility] Administration Spironolactone 25 mg 10/29/17 10:00 10/30/17 10:09 Aldactone - PO 25 mg DAILY [facility] Administration Warfarin Sodium 7.5 mg 10/28/17 18:00 10/29/17 17:02 Coumadin - PO 7.5 mg DAILY@1800 [facility] Administration Impression 1. CKD 2. altered mental status 3. a-fib 4. DM 5. HTN 6. hx bladder cancer 7. leukocytosis 8. r/o uti Plan - cont to monitor renal function - monitor potassium on aldactone and lisinopril - cont abx - follow cultures - ileal conduit care - renal function is stable - will follow PRN
--- NOTE | 2017-10-30 16:56 | CONSULT ---
Consult Consult Specialty:: endocrine Referred by:: dr.annabi baxter Reason for Consultation:: diabetes mellitus hyperglycemia - History of Present Illness Chief Complaint: high sugars History of Present Illness: 67 YOM with h/o diabetes mellitus metastatic bladder cancer (with mets to liver and lung, s/p suprapubic catheter placement), and A-fib (on coumadin), CHF (on furosemide) who p/w rapid heart rate and generalize, has been unable to care for himself, and has been increasingly generally weak today. She notes he has the metastatic cancer and has not been checkin blood sugars lately. - History Source History Provided By: Patient - Past Medical History Cardio/Vascular: Yes: AFIB, CAD, HTN, Hyperlipdemia Pulmonary: Yes: Sleep Apnea (rule out) Renal/: Yes: Renal Inusuff, Cancer (bladder) Endocrine: Yes: Diabetes Mellitus - Past Surgical History Past Surgical History: Yes: Stent - Alcohol/Substance Use Hx Alcohol Use: No History of Substance Use: reports: None - Smoking History Smoking history: Never smoked Have you smoked in the past 12 months: No Aproximately how many cigarettes per day: 0 - Social History ADL: Independent History of Recent Travel: Yes ([place]) Home Medications - Allergies Allergies/Adverse Reactions: Allergies Allergy/AdvReac Type Severity Reaction Status Date / Time No Known Allergies Allergy Verified 10/27/17 23:31 - Home Medications Home Medications: Ambulatory Orders Aspirin [Aspirin EC] 81 mg PO DAILY 08/25/17 Citalopram Hydrobromide [Citalopram HBr] 10 mg PO DAILY 08/25/17 Clopidogrel Bisulfate [Plavix] 75 mg PO DAILY 08/25/17 Ergocalciferol (Vitamin D2) [Drisdol] 1.25 mg PO WEEKLY 08/25/17 Insulin Glargine,Hum.rec.anlog [Basaglar Kwikpen U-100] 60 unit SQ DAILY Oxycodone HCl/Acetaminophen [Endocet 5-325 Tablet] 1 each PO Q6H PRN 08/25/17 Pantoprazole Sodium [Protonix] 40 mg PO DAILY 08/25/17 Acetaminophen [Tylenol .Regular Strength -] 650 mg PO Q6H PRN #120 tablet MDD 6 09/03/17 Docusate Sodium [Colace -] 300 mg PO HS #90 capsule 09/03/17 Insulin Aspart [Novolog Flexpen] 20 unit SQ BID #4 insuln.pen 09/03/17 Lisinopril [Prinivil] 2.5 mg PO DAILY #30 tablet 09/03/17 Metoprolol Succinate [Toprol XL -] 50 mg PO DAILY #30 tab.sr.24h 09/03/17 Spironolactone [Aldactone -] 25 mg PO DAILY #30 tablet 09/03/17 Warfarin Sodium [Coumadin] 2 mg PO DAILY #30 tablet 09/03/17 Warfarin Sodium [Coumadin] 5 mg PO DAILY #3 tablet 09/03/17 Review of Systems - Review of Systems Constitutional: reports: Lethargy, Weakness Eyes: reports: No Symptoms HENT: reports: No Symptoms Neck: reports: No Symptoms Cardiovascular: reports: Shortness of Breath Respiratory: reports: Exercise Intolerance, SOB on Exertion Gastrointestinal: reports: Bloating Genitourinary: reports: No Symptoms Musculoskeletal: reports: Muscle Pain, Muscle Cramps, Muscle Weakness Integumentary: reports: No Symptoms Neurological: reports: Weakness Endocrine: reports: Unexplained Weight Gain Physical Exam Vital Signs: Vital Signs Temperature 98.4 F 10/30/17 06:00 Pulse Rate 74 10/30/17 06:00 Respiratory Rate 16 10/30/17 06:00 Blood Pressure 106/60 10/30/17 06:00 O2 Sat by Pulse Oximetry (%) 97 10/30/17 06:00 Constitutional: Yes: Calm Eyes: Yes: EOM Intact HENT: Yes: Normocephalic Neck: Yes: Trachea Midline Cardiovascular: Yes: Regular Rate and Rhythm Respiratory: Yes: CTA Bilaterally Gastrointestinal: Yes: Normal Bowel Sounds ...Rectal Exam: Yes: Deferred Renal/: Yes: WNL Musculoskeletal: Yes: WNL Extremities: Yes: WNL Neurological: Yes: Alert, Oriented, Weakness Labs: CBC, BMP 10/30/17 05:30 10/30/17 05:30 Problem List - Problems (1) Diabetes 1.5, managed as type 2 Code(s): E10.9 - TYPE 1 DIABETES MELLITUS WITHOUT COMPLICATIONS (2) Atrial fibrillation with rapid ventricular response Code(s): I48.91 - UNSPECIFIED ATRIAL FIBRILLATION (3) Leukocytosis Code(s): D72.829 - ELEVATED WHITE BLOOD CELL COUNT, UNSPECIFIED (4) Atrial fibrillation Code(s): I48.91 - UNSPECIFIED ATRIAL FIBRILLATION Qualifiers: Atrial fibrillation type: persistent Qualified Code(s): I48.1 - Persistent atrial fibrillation (5) Bladder cancer Code(s): C67.9 - MALIGNANT NEOPLASM OF BLADDER, UNSPECIFIED (6) 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 (7) CAD (coronary artery disease) Code(s): I25.10 - ATHSCL HEART DISEASE OF [place] CORONARY ARTERY W/O ANG PCTRS Qualifiers: Coronary Disease-Associated Artery/Lesion type: [place] artery [place] vs. transplanted heart: [place] heart Associated angina: without angina Qualified Code(s): I25.10 - Atherosclerotic heart disease of [place] coronary artery without angina pectoris Assessment/Plan Current Active Problems Atrial fibrillation with rapid ventricular response (Acute) Leukocytosis (Acute) UTI (urinary tract infection) (Acute) diabetes mellitus hyperglycemia Abnormal Lab Results 10/30/17 10/30/17 10/30/17 05:30 05:30 05:30 WBC 12.5 H RBC 3.93 L Hgb 10.5 L Hct 32.6 L RDW 16.2 H Absolute Neuts (auto) 10.8 H Neutrophils % 86.7 H Lymphocytes % 4.8 L PT with INR 37.00 H INR 3.27 H Sodium 135 L BUN 37 H AST 13 L Alkaline Phosphatase 207 H Total Protein 6.0 L Albumin 2.0 L Laboratory Results - last 24 hr 10/29/17 10/29/17 10/30/17 16:33 21:44 05:30 WBC 12.5 H RBC 3.93 L Hgb 10.5 L Hct 32.6 L MCV 83.0 MCH 26.7 MCHC 32.2 RDW 16.2 H Plt Count 274 MPV 9.2 Absolute Neuts (auto) 10.8 H Neutrophils % 86.7 H Lymphocytes % 4.8 L Monocytes % 7.6 Eosinophils % 0.5 D Basophils % 0.4 Nucleated RBC % 0 PT with INR INR Sodium Potassium Chloride Carbon Dioxide Anion Gap BUN Creatinine Creat Clearance w eGFR POC Glucometer 151 129 Random Glucose Calcium Total Bilirubin AST ALT Alkaline Phosphatase Total Protein Albumin 10/30/17 10/30/17 10/30/17 05:30 05:30 06:11 WBC RBC Hgb Hct MCV MCH MCHC RDW Plt Count MPV Absolute Neuts (auto) Neutrophils % Lymphocytes % Monocytes % Eosinophils % Basophils % Nucleated RBC % PT with INR 37.00 H INR 3.27 H Sodium 135 L Potassium 4.2 Chloride 104 Carbon Dioxide 21 Anion Gap 10 BUN 37 H Creatinine 1.3 Creat Clearance w eGFR 54.73 POC Glucometer 123 Random Glucose 100 Calcium 9.1 Total Bilirubin 0.3 AST 13 L ALT 21 Alkaline Phosphatase 207 H Total Protein 6.0 L Albumin 2.0 L 10/30/17 11:24 WBC RBC Hgb Hct MCV MCH MCHC RDW Plt Count MPV Absolute Neuts (auto) Neutrophils % Lymphocytes % Monocytes % Eosinophils % Basophils % Nucleated RBC % PT with INR INR Sodium Potassium Chloride Carbon Dioxide Anion Gap BUN Creatinine Creat Clearance w eGFR POC Glucometer 131 Random Glucose Calcium Total Bilirubin AST ALT Alkaline Phosphatase Total Protein Albumin plan Laboratory Tests 06/27/17 06/28/17 06/28/17 17:10 06:00 06:00 Sodium Potassium Chloride Carbon Dioxide Anion Gap BUN Creatinine Creat Clearance w eGFR POC Glucometer Hemoglobin A1c % 7.3 H D Total LDL Cholesterol 78 TSH 1.29 D 10/30/17 10/30/17 10/30/17 05:30 06:11 11:24 Sodium 135 L Potassium 4.2 Chloride 104 Carbon Dioxide 21 Anion Gap 10 BUN 37 H Creatinine 1.3 Creat Clearance w eGFR 54.73 POC Glucometer 123 131 Hemoglobin A1c % Total LDL Cholesterol TSH continue bgm qid novolog insulin dose levemir/novolog am diet and close follow up as outpatient Current Medications Generic Name Dose Route Start Last Admin Trade Name Freq PRN Reason Stop Dose Admin Acetaminophen 650 mg 10/28/17 10:39 Tylenol - PO Q6H PRN PAIN LEVEL 1-6 Acetaminophen 325 mg 10/28/17 10:55 10/30/17 10:12 Tylenol - PO 325 mg Q6H PRN Administration PAIN 7-10 Amoxicillin 500 mg 10/30/17 22:00 Amoxicillin - PO TID [facility] Aspirin 81 mg 10/29/17 10:00 10/30/17 10:09 Ecotrin - PO 81 mg DAILY [facility] Administration Citalopram Hydrobromide 10 mg 10/29/17 10:00 10/30/17 10:09 Celexa - PO 10 mg DAILY [facility] Administration Clopidogrel Bisulfate 75 mg 10/28/17 10:45 10/30/17 10:09 Plavix - PO 75 mg DAILY [facility] Administration Docusate Sodium 300 mg 10/28/17 22:00 10/29/17 21:45 Colace - PO 300 mg HS [facility] Administration Insulin Aspart 1 vial 10/28/17 22:00 10/30/17 11:31 Novolog Vial Sliding Scale - SQ Not Given ACHS [facility] Protocol Insulin Detemir 60 units 10/29/17 07:00 10/30/17 06:12 Levemir Vial SQ Not Given DAILY@0700 [facility] Lactobacillus Acidophilus 1 tab 10/30/17 15:00 Bacid - PO DAILY [facility] Lisinopril 2.5 mg 10/29/17 10:00 10/30/17 10:10 Prinivil PO 2.5 mg DAILY [facility] Administration Metoprolol Succinate 50 mg 10/28/17 21:00 10/30/17 10:09 Toprol Xl - PO 50 mg DAILY [facility] Administration Oxycodone HCl 5 mg 10/28/17 10:55 10/30/17 10:12 Roxicodone - PO 5 mg Q6H PRN Administration PAIN 7-10 Pantoprazole Sodium 40 mg 10/29/17 10:00 10/30/17 10:09 Protonix - PO 40 mg DAILY [facility] Administration Spironolactone 25 mg 10/29/17 10:00 10/30/17 10:09 Aldactone - PO 25 mg DAILY [facility] Administration Warfarin Sodium 7.5 mg 10/28/17 18:00 10/29/17 17:02 Coumadin - PO 7.5 mg DAILY@1800 [facility] Administration
--- NOTE | 2017-10-30 18:19 | PN ---
Progress Note, Physician Chief Complaint: AWAKE ALERT CHART AND NOTES REVIEWED DENIES PAIN OR FEVER - Current Medication List Current Medications: Active Medications Acetaminophen (Tylenol -) 650 mg PO Q6H PRN PRN Reason: PAIN LEVEL 1-6 Acetaminophen (Tylenol -) 325 mg PO Q6H PRN PRN Reason: PAIN 7-10 Last Admin: 10/30/17 10:12 Dose: 325 mg Amoxicillin (Amoxicillin -) 500 mg PO TID [facility] Aspirin (Ecotrin -) 81 mg PO DAILY [facility] Last Admin: 10/30/17 10:09 Dose: 81 mg Citalopram Hydrobromide (Celexa -) 10 mg PO DAILY [facility] Last Admin: 10/30/17 10:09 Dose: 10 mg Clopidogrel Bisulfate (Plavix -) 75 mg PO DAILY [facility] Last Admin: 10/30/17 10:09 Dose: 75 mg Docusate Sodium (Colace -) 300 mg PO HS [facility] Last Admin: 10/29/17 21:45 Dose: 300 mg Insulin Aspart (Novolog Vial Sliding Scale -) 1 vial SQ [facility]; Protocol Last Admin: 10/30/17 18:17 Dose: Not Given Insulin Detemir (Levemir Vial) 60 units SQ DAILY@0700 [facility] Last Admin: 10/30/17 06:12 Dose: Not Given Lactobacillus Acidophilus (Bacid -) 1 tab PO DAILY [facility] Lisinopril (Prinivil) 2.5 mg PO DAILY [facility] Last Admin: 10/30/17 10:10 Dose: 2.5 mg Metoprolol Succinate (Toprol Xl -) 50 mg PO DAILY [facility] Last Admin: 10/30/17 10:09 Dose: 50 mg Oxycodone HCl (Roxicodone -) 5 mg PO Q6H PRN PRN Reason: PAIN 7-10 Last Admin: 10/30/17 10:12 Dose: 5 mg Pantoprazole Sodium (Protonix -) 40 mg PO DAILY [facility] Last Admin: 10/30/17 10:09 Dose: 40 mg Spironolactone (Aldactone -) 25 mg PO DAILY [facility] Last Admin: 10/30/17 10:09 Dose: 25 mg Warfarin Sodium (Coumadin -) 7.5 mg PO DAILY@1800 [facility] Last Admin: 10/29/17 17:02 Dose: 7.5 mg - Objective Vital Signs: Vital Signs Temperature 98.4 F 10/30/17 06:00 Pulse Rate 74 10/30/17 06:00 Respiratory Rate 16 10/30/17 06:00 Blood Pressure 106/60 10/30/17 06:00 O2 Sat by Pulse Oximetry (%) 97 10/30/17 06:00 Constitutional: Yes: No Distress Eyes: Yes: WNL HENT: Yes: WNL Neck: Yes: WNL Cardiovascular: Yes: WNL Respiratory: Yes: WNL Gastrointestinal: Yes: WNL Genitourinary: Yes: [place] Present Musculoskeletal: Yes: Muscle Weakness Extremities: Yes: Other Edema: No Peripheral Pulses WNL: Yes Integumentary: Yes: WNL Wound/Incision: Yes: Clean/Dry Neurological: Yes: Other ...Motor Strength: LLE, RLE Psychiatric: Yes: Other Labs: CBC, BMP 10/30/17 05:30 10/30/17 05:30 INR, PTT INR 3.27 (0.83-1.09) H 10/30/17 05:30 Problem List - Problems (1) Leukocytosis Code(s): D72.829 - ELEVATED WHITE BLOOD CELL COUNT, UNSPECIFIED (2) UTI (urinary tract infection) Code(s): N39.0 - URINARY TRACT INFECTION, SITE NOT SPECIFIED Qualifiers: Urinary tract infection type: acute cystitis Hematuria presence: without hematuria Qualified Code(s): N30.00 - Acute cystitis without hematuria (3) Atrial fibrillation Code(s): I48.91 - UNSPECIFIED ATRIAL FIBRILLATION Qualifiers: Atrial fibrillation type: persistent Qualified Code(s): I48.1 - Persistent atrial fibrillation (4) 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 (5) CAD (coronary artery disease) Code(s): I25.10 - ATHSCL HEART DISEASE OF [place] CORONARY ARTERY W/O ANG PCTRS Qualifiers: Coronary Disease-Associated Artery/Lesion type: [place] artery [place] vs. transplanted heart: [place] heart Associated angina: without angina Qualified Code(s): I25.10 - Atherosclerotic heart disease of [place] coronary artery without angina pectoris (6) Diabetes Code(s): E11.9 - TYPE 2 DIABETES MELLITUS WITHOUT COMPLICATIONS (7) Hematuria Code(s): R31.9 - HEMATURIA, UNSPECIFIED Assessment/Plan IV ABX PER ID CHECKING CX LEUKMOID RX VS UTI DVT PROPHYLAXIS
[2017-10-30] MEDS: LACTOBACILLUS ACIDOPHILUS 1 TABLET PO SCH (19:21)
--- NOTE | 2017-10-30 21:19 | PN ---
Progress Note (short form) - Note Progress Note: Patient seen and examined Offers no complaints Discussed in detail with him and his domestic partner via moz[place]ican speaking nurse Last Vital Signs Temp Pulse Resp BP Pulse Ox 98.2 F 69 18 100/60 96 10/30/17 21:00 10/30/17 21:00 10/30/17 21:00 10/30/17 21:00 10/30/17 21:00 Cor: RSR, No murmurs, No gallops Lungs: Clear to P&A Abd: Soft, Normal bowel sounds, No organomegaly Ext:No significant edema Abnormal Lab Results 10/30/17 10/30/17 10/30/17 05:30 05:30 05:30 WBC 12.5 H RBC 3.93 L Hgb 10.5 L Hct 32.6 L RDW 16.2 H Absolute Neuts (auto) 10.8 H Neutrophils % 86.7 H Lymphocytes % 4.8 L PT with INR 37.00 H INR 3.27 H Sodium 135 L BUN 37 H AST 13 L Alkaline Phosphatase 207 H Total Protein 6.0 L Albumin 2.0 L Home Medication List Medication Instructions Recorded Confirmed Type Aspirin [Aspirin EC] 81 mg PO DAILY 08/25/17 10/28/17 History Citalopram Hydrobromide 10 mg PO DAILY 08/25/17 10/28/17 History [Citalopram HBr] Clopidogrel Bisulfate [Plavix] 75 mg PO DAILY 08/25/17 10/28/17 History Ergocalciferol (Vitamin D2) 1.25 mg PO WEEKLY 08/25/17 10/28/17 History [Drisdol] Insulin Glargine,Hum.rec.anlog 60 unit SQ DAILY 08/25/17 10/28/17 History [Basaglar Kwikpen U-100] Oxycodone HCl/Acetaminophen 1 each PO Q6H PRN 08/25/17 10/28/17 History [Endocet 5-325 Tablet] Pantoprazole Sodium [Protonix] 40 mg PO DAILY 08/25/17 10/28/17 History Active Medications Generic Name Dose Route Start Last Admin Trade Name Freq PRN Reason Stop Dose Admin Acetaminophen 650 mg 10/28/17 10:39 Tylenol - PO Q6H PRN PAIN LEVEL 1-6 Acetaminophen 325 mg 10/28/17 10:55 10/30/17 10:12 Tylenol - PO 325 mg Q6H PRN Administration PAIN 7-10 Amoxicillin 500 mg 10/30/17 22:00 Amoxicillin - PO TID [facility] Aspirin 81 mg 10/29/17 10:00 10/30/17 10:09 Ecotrin - PO 81 mg DAILY [facility] Administration Citalopram Hydrobromide 10 mg 10/29/17 10:00 10/30/17 10:09 Celexa - PO 10 mg DAILY [facility] Administration Clopidogrel Bisulfate 75 mg 10/28/17 10:45 10/30/17 10:09 Plavix - PO 75 mg DAILY [facility] Administration Docusate Sodium 300 mg 10/28/17 22:00 10/29/17 21:45 Colace - PO 300 mg HS [facility] Administration Insulin Aspart 1 vial 10/28/17 22:00 10/30/17 18:17 Novolog Vial Sliding Scale - SQ Not Given ACHS [facility] Protocol Insulin Detemir 60 units 10/29/17 07:00 10/30/17 06:12 Levemir Vial SQ Not Given DAILY@0700 [facility] Lactobacillus Acidophilus 1 tab 10/30/17 15:00 10/30/17 19:21 Bacid - PO 1 tab DAILY [facility] Administration Lisinopril 2.5 mg 10/29/17 10:00 10/30/17 10:10 Prinivil PO 2.5 mg DAILY [facility] Administration Metoprolol Succinate 50 mg 10/28/17 21:00 10/30/17 10:09 Toprol Xl - PO 50 mg DAILY [facility] Administration Oxycodone HCl 5 mg 10/28/17 10:55 10/30/17 10:12 Roxicodone - PO 5 mg Q6H PRN Administration PAIN 7-10 Pantoprazole Sodium 40 mg 10/29/17 10:00 10/30/17 10:09 Protonix - PO 40 mg DAILY [facility] Administration Spironolactone 25 mg 10/29/17 10:00 10/30/17 10:09 Aldactone - PO 25 mg DAILY [facility] Administration Warfarin Sodium 7.5 mg 10/28/17 18:00 10/29/17 17:02 Coumadin - PO 7.5 mg DAILY@1800 [facility] Administration A/P Bladder CA s/p resection/urostomy Multiple lung masses, liver masses Leukocytosis DM HTN Afib on Coumadin CAD s/p stent in 07/27. on ASA/pLavix CHF PLAN 66yM with PMH transitional cell bladder CA s/p resection, ileal conduit, CHF , CAD s/p stent placement recently, afib, DM who presents with weakness h/o bladder cancer, s/p resection, followed by at [facility] now with concern for liver/lung mets Last seen by Dr. Bahena on 10/06 --- biopsy of metastatic site was being contemplated Also poor performance status and goals of care were being discussed does not have social support here. discussed with patient and his in great detail via mozambican speaking nurse. discussed that we could pursue biopsy if he is able to come back and forth to get immunotherapy in the office. Patient is unable to do that given his performance status and care needs and social support. He wants to go to [place] ansd spend his last days with his children in [place]. He and his partner are very keen about it. He has appointed his partner as health care proxy. she is sick herself and not able to care for him His 2 nd health care proxy is his daughter who will come and help make arrangements to take him to [place] if feasible psych social worker consult to look into this Rehab placement when medically stable Will discuss with primary team
[2017-10-30] MEDS: DOCUSATE SODIUM 100 MG CAPSULE (FP) PO SCH (21:28)
[2017-10-30] MEDS: AMOXICILLIN 500 MG CAPSULE (FP) PO SCH (21:29)
--- NOTE | 2017-10-30 23:35 | PN ---
Progress Note, Physician Chief Complaint: Pt A&O; no chest pain or dyspnea; c/o pain in lower back, and at ileal conduit site History of Present Illness: This is a 67 YOM with h/o metastatic bladder cancer (with mets to liver and lung , s/p suprapubic catheter placement), and A-fib (on coumadin), severe systolic CHF (on furosemide) who p/w rapid heart rate and generalized weakness. The patient himself is a somewhat poor historian and denies symptoms other than feeling generally weak/unwell. He denies f/c/n/v/d/c, abdominal pain, chest pain , SOB, n/t/w focally, dizziness, lightheadedness, black/bloody stool, or other symptoms. On discussion with the patient's emergency contact over the phone ( who identifies herself as his caregiver but not as a family member) the patient lives alone, has been unable to care for himself, and has been increasingly generally weak today. She notes he has the metastatic cancer and no family members living close by. He has no advance directive paperwork that the caregiver knows of. Cardiac Cath: 07/03/17 LAD proximal 40%, mid 40%, distal 30% LCx mid 30% RCA mid 80%, RPDA 40% LVEDP ~ 20 mmHg No LV gram performed in order to minimize contrast load Also limited angiography performed due to elevated creatinine No significant on pull back Moderate pulmonary hypertension as noted PASP up to 50 mmHg Mean RA pressure ~ 8-10 mmHg Ongoing medical problems Hypertension Diabetes mellitus Bladder cancer Nonobstructive CAD A Fib - Current Medication List Current Medications: Active Medications Acetaminophen (Tylenol -) 650 mg PO Q6H PRN PRN Reason: PAIN LEVEL 1-6 Acetaminophen (Tylenol -) 325 mg PO Q6H PRN PRN Reason: PAIN 7-10 Last Admin: 10/30/17 10:12 Dose: 325 mg Amoxicillin (Amoxicillin -) 500 mg PO TID [facility] Last Admin: 10/30/17 21:29 Dose: 500 mg Aspirin (Ecotrin -) 81 mg PO DAILY [facility] Last Admin: 10/30/17 10:09 Dose: 81 mg Citalopram Hydrobromide (Celexa -) 10 mg PO DAILY [facility] Last Admin: 10/30/17 10:09 Dose: 10 mg Clopidogrel Bisulfate (Plavix -) 75 mg PO DAILY [facility] Last Admin: 10/30/17 10:09 Dose: 75 mg Docusate Sodium (Colace -) 300 mg PO HS [facility] Last Admin: 10/30/17 21:28 Dose: 300 mg Insulin Aspart (Novolog Vial Sliding Scale -) 1 vial SQ ACHS [facility]; Protocol Last Admin: 10/30/17 21:37 Dose: Not Given Insulin Detemir (Levemir Vial) 60 units SQ DAILY@0700 [facility] Last Admin: 10/30/17 06:12 Dose: Not Given Lactobacillus Acidophilus (Bacid -) 1 tab PO DAILY [facility] Last Admin: 10/30/17 19:21 Dose: 1 tab Lisinopril (Prinivil) 2.5 mg PO DAILY [facility] Last Admin: 10/30/17 10:10 Dose: 2.5 mg Metoprolol Succinate (Toprol Xl -) 50 mg PO DAILY [facility] Last Admin: 10/30/17 10:09 Dose: 50 mg Oxycodone HCl (Roxicodone -) 5 mg PO Q6H PRN PRN Reason: PAIN 7-10 Last Admin: 10/30/17 10:12 Dose: 5 mg Pantoprazole Sodium (Protonix -) 40 mg PO DAILY [facility] Last Admin: 10/30/17 10:09 Dose: 40 mg Spironolactone (Aldactone -) 25 mg PO DAILY [facility] Last Admin: 10/30/17 10:09 Dose: 25 mg Warfarin Sodium (Coumadin -) 7.5 mg PO DAILY@1800 [facility] Last Admin: 10/29/17 17:02 Dose: 7.5 mg - Objective Vital Signs: Vital Signs Temperature 98.2 F 10/30/17 21:00 Pulse Rate 69 10/30/17 21:00 Respiratory Rate 18 10/30/17 21:00 Blood Pressure 100/60 10/30/17 21:00 O2 Sat by Pulse Oximetry (%) 96 10/30/17 21:00 Constitutional: Yes: Anxious HENT: Yes: WNL Neck: Yes: WNL Cardiovascular: Yes: Pulse Irregular, S1 (varies in intensity), S2 Respiratory: Yes: Regular Gastrointestinal: Yes: Soft ...Rectal Exam: Yes: Deferred Genitourinary: No: Anuria Breast(s): Yes: WNL Musculoskeletal: Yes: Muscle Pain, Muscle Weakness Extremities: Yes: Cool Edema: No Peripheral Pulses WNL: Yes Integumentary: Yes: Incision Wound/Incision: Yes: Other Neurological: Yes: Alert, Oriented, Weakness Psychiatric: Yes: Alert, Oriented Labs: CBC, BMP 10/30/17 05:30 10/30/17 05:30 INR, PTT INR 3.27 (0.83-1.09) H 10/30/17 05:30 Problem List - Problems (1) Chronic systolic (congestive) heart failure Assessment/Plan: On lisinopril, metoprolol, and spironolactone. Furosemide prn. F/u BUN/cr, electrolytes, daily weight, Is and Os. Code(s): I50.22 - CHRONIC SYSTOLIC (CONGESTIVE) HEART FAILURE (2) Leukocytosis Assessment/Plan: on antibiotics; f/u cultures. Code(s): D72.829 - ELEVATED WHITE BLOOD CELL COUNT, UNSPECIFIED (3) Atrial fibrillation Assessment/Plan: On metoprolol for HR contrl. On warfarin: maintain INR 2-3. Code(s): I48.91 - UNSPECIFIED ATRIAL FIBRILLATION Qualifiers: Atrial fibrillation type: persistent Qualified Code(s): I48.1 - Persistent atrial fibrillation (4) Bladder cancer Assessment/Plan: ?mets to liver and lung. F/u with oncologist. Code(s): C67.9 - MALIGNANT NEOPLASM OF BLADDER, UNSPECIFIED (5) CAD (coronary artery disease) Assessment/Plan: s/p coronary stent. Total cholesterol 107 mg/dL. On clopidogrel and ASA. Code(s): I25.10 - ATHSCL HEART DISEASE OF [place] CORONARY ARTERY W/O ANG PCTRS Qualifiers: Coronary Disease-Associated Artery/Lesion type: [place] artery [place] vs. transplanted heart: [place] heart Associated angina: without angina Qualified Code(s): I25.10 - Atherosclerotic heart disease of [place] coronary artery without angina pectoris
--- NOTE | 2017-10-31 00:12 | PN ---
Progress Note, Physician Chief Complaint: Pt A&O; no chest pain or dyspnea; again asks for pain medication lower back and abdominal pain. History of Present Illness: This is a 67 YO man with h/o metastatic bladder cancer (with possible mets to liver and lung, s/p suprapubic catheter placement), A-fib (on coumadin), severe systolic CHF (on metoprolol, lisinopril, spironolactone; and furosemide prn), renal dysfunction, who c/w rapid heart rate and generalized weakness. The patient himself is a somewhat poor historian and denies symptoms other than feeling generally weak/unwell. He denies f/c/n/v/d/c, abdominal pain, chest pain , SOB, n/t/w focally, dizziness, lightheadedness, black/bloody stool, or other symptoms. On discussion with the patient's emergency contact over the phone ( who identifies herself as his caregiver but not as a family member) the patient lives alone, has been unable to care for himself, and has been increasingly generally weak today. She notes he has metastatic cancer and no family members living close by. He has no advance directive paperwork that the caregiver knows of. Cardiac Cath: 07/03/17 LAD proximal 40%, mid 40%, distal 30% LCx mid 30% RCA mid 80%, RPDA 40% LVEDP ~ 20 mmHg No LV gram performed in order to minimize contrast load Also limited angiography performed due to elevated creatinine No significant on pull back Moderate pulmonary hypertension as noted PASP up to 50 mmHg Mean RA pressure ~ 8-10 mmHg Ongoing medical problems Hypertension Diabetes mellitus Bladder cancer Nonobstructive CAD A Fib - Current Medication List Current Medications: Active Medications Acetaminophen (Tylenol -) 650 mg PO Q6H PRN PRN Reason: PAIN LEVEL 1-6 Acetaminophen (Tylenol -) 325 mg PO Q6H PRN PRN Reason: PAIN 7-10 Last Admin: 10/30/17 10:12 Dose: 325 mg Amoxicillin (Amoxicillin -) 500 mg PO TID [facility] Last Admin: 10/30/17 21:29 Dose: 500 mg Aspirin (Ecotrin -) 81 mg PO DAILY [facility] Last Admin: 10/30/17 10:09 Dose: 81 mg Citalopram Hydrobromide (Celexa -) 10 mg PO DAILY [facility] Last Admin: 10/30/17 10:09 Dose: 10 mg Clopidogrel Bisulfate (Plavix -) 75 mg PO DAILY [facility] Last Admin: 10/30/17 10:09 Dose: 75 mg Docusate Sodium (Colace -) 300 mg PO HS [facility] Last Admin: 10/30/17 21:28 Dose: 300 mg Insulin Aspart (Novolog Vial Sliding Scale -) 1 vial SQ ACHS [facility]; Protocol Last Admin: 10/30/17 21:37 Dose: Not Given Insulin Detemir (Levemir Vial) 60 units SQ DAILY@0700 [facility] Last Admin: 10/30/17 06:12 Dose: Not Given Lactobacillus Acidophilus (Bacid -) 1 tab PO DAILY [facility] Last Admin: 10/30/17 19:21 Dose: 1 tab Lisinopril (Prinivil) 2.5 mg PO DAILY [facility] Last Admin: 10/30/17 10:10 Dose: 2.5 mg Metoprolol Succinate (Toprol Xl -) 50 mg PO DAILY [facility] Last Admin: 10/30/17 10:09 Dose: 50 mg Oxycodone HCl (Roxicodone -) 5 mg PO Q6H PRN PRN Reason: PAIN 7-10 Last Admin: 10/30/17 10:12 Dose: 5 mg Pantoprazole Sodium (Protonix -) 40 mg PO DAILY [facility] Last Admin: 10/30/17 10:09 Dose: 40 mg Spironolactone (Aldactone -) 25 mg PO DAILY [facility] Last Admin: 10/30/17 10:09 Dose: 25 mg Warfarin Sodium (Coumadin -) 7.5 mg PO DAILY@1800 [facility] Last Admin: 10/29/17 17:02 Dose: 7.5 mg - Objective Vital Signs: Vital Signs Temperature 98.2 F 10/30/17 21:00 Pulse Rate 69 10/30/17 21:00 Respiratory Rate 18 10/30/17 21:00 Blood Pressure 100/60 10/30/17 21:00 O2 Sat by Pulse Oximetry (%) 96 10/30/17 21:00 Constitutional: Yes: Calm Eyes: Yes: WNL HENT: Yes: WNL Neck: Yes: WNL Cardiovascular: Yes: Pulse Irregular, S1 (varies in intentisy), S2 Respiratory: Yes: WNL Gastrointestinal: Yes: Soft, Other (ileal conduit) ...Rectal Exam: Yes: Deferred Genitourinary: Yes: Other. No: Anuria Musculoskeletal: Yes: Muscle Pain, Muscle Weakness Extremities: Yes: Cool Edema: No Peripheral Pulses WNL: Yes Neurological: Yes: Alert, Weakness Psychiatric: Yes: Alert Labs: CBC, BMP 10/30/17 05:30 10/30/17 05:30 INR, PTT INR 3.27 (0.83-1.09) H 10/30/17 05:30 Abnormal Lab Results 10/30/17 10/30/17 10/30/17 05:30 05:30 05:30 WBC 12.5 H RBC 3.93 L Hgb 10.5 L Hct 32.6 L RDW 16.2 H Absolute Neuts (auto) 10.8 H Neutrophils % 86.7 H Lymphocytes % 4.8 L PT with INR 37.00 H INR 3.27 H Sodium 135 L BUN 37 H AST 13 L Alkaline Phosphatase 207 H Total Protein 6.0 L Albumin 2.0 L - ....Imaging Cat Scan: Image Reviewed (likely pulmonary metastases) Problem List - Problems (1) Chronic systolic (congestive) heart failure Assessment/Plan: continue lisinopril, metoprolol, and spironolactone. Furosemide prn. F/u BUN/Cr, electrolytes, daily weight, Is and Os. Code(s): I50.22 - CHRONIC SYSTOLIC (CONGESTIVE) HEART FAILURE (2) Leukocytosis Assessment/Plan: on antibiotics (now changed to oral amoxicillin; cuiltures are negative; WBCs, while still elevated, are decreasing). Code(s): D72.829 - ELEVATED WHITE BLOOD CELL COUNT, UNSPECIFIED (3) Atrial fibrillation Assessment/Plan: On metoprolol; HR better-controlled. On warfarin: maintain INR 2-3. Code(s): I48.91 - UNSPECIFIED ATRIAL FIBRILLATION Qualifiers: Atrial fibrillation type: persistent Qualified Code(s): I48.1 - Persistent atrial fibrillation (4) Bladder cancer Assessment/Plan: Images show high likelihood of extensive metasteses to liver and lung. F/u with oncologist. Code(s): C67.9 - MALIGNANT NEOPLASM OF BLADDER, UNSPECIFIED (5) CAD (coronary artery disease) Assessment/Plan: ?hx coronary stent (80% lesion mid RCA on angiogram). Total cholesterol 107 mg/dL. On clopidogrel and ASA. Code(s): I25.10 - ATHSCL HEART DISEASE OF [place] CORONARY ARTERY W/O ANG PCTRS Qualifiers: Coronary Disease-Associated Artery/Lesion type: [place] artery [place] vs. transplanted heart: [place] heart Associated angina: without angina Qualified Code(s): I25.10 - Atherosclerotic heart disease of [place] coronary artery without angina pectoris (6) Anemia Code(s): D64.9 - ANEMIA, UNSPECIFIED
[2017-10-31 06:19] LABS: BASO % 0.7 % (0-2.0); EOS % 0.5 % (0-4.5); HEMATOCRIT 32.9 % (35.4-49); HEMOGLOBIN 10.5 GM/dL (11.7-16.9); LYMPH % 5.5 % (8-40); MCH 26.4 pg (25.7-33.7); MCHC 32.1 g/dl (32.0-35.9); MEAN CELL VOLUME 82.3 fl (80-96); MONO % 7.8 % (3.8-10.2); NEUT % 85.5 % (42.8-82.8); PLATELET COUNT 282 K/MM3 (134-434); RBC 3.99 M/mm3 (4.00-5.60); WHITE BLOOD COUNT 12.8 K/mm3 (4.0-10.0)
[2017-10-31 06:29] LABS: PROTHROMBIN TIME (PATIENT) 50.5 SEC (9.7-13.0)
[2017-10-31] MEDS: INSULIN (LEVEMIR) 100 UNITS/ML UNITS SQ SCH (06:29)
[2017-10-31] MEDS: INSULIN SLIDING SCALE (NOVOLOG) 1 VIAL SQ SCH ×4 (06:29→21:52)
[2017-10-31] MEDS: AMOXICILLIN 500 MG CAPSULE (FP) PO SCH ×3 (06:39→21:56)
[2017-10-31 06:48] LABS: INR 4.47 (0.83-1.09)
[2017-10-31 07:26] LABS: ALBUMIN 2.2 g/dl (3.4-5.0); ALK PHOS 237 U/L (45-117); ANION GAP 10 MMOL/L (8-16); BILIRUBIN,TOTAL 0.3 mg/dL (0.2-1); BLOOD UREA NITROGEN 36 mg/dL (7-18); CALCIUM 9.4 mg/dL (8.5-10.1); CHLORIDE 104 mmol/L (98-107); CO2 21 mmol/L (21-32); CREATININE 1.3 mg/dL (0.55-1.3); GLUCOSE,RANDOM 105 mg/dL (74-106); POTASSIUM 4.9 mmol/L (3.5-5.1); SGOT/AST 17 U/L (15-37); SGPT/ALT 24 U/L (13-61); SODIUM 135 mmol/L (136-145); TOT PROT 6.3 g/dl (6.4-8.2)
--- NOTE | 2017-10-31 09:00 | PN ---
Progress Note (short form) - Note Progress Note: Subjective: 67 year old male with past medical history significant for bladder cancer s/p resection/urostomy complicated by mets to lung and liverwith atrial fibrillation on coumadin, HTN, HL, CAD s/p PCI admitted with infection found to be in atrial fibrillation with rapid ventricular response- currently improving on antibiotics, hemodynamically stable with HR in the 70s. No complaints this morning. Denies any lh, dizziness, chest pain or shortness of breath. Past Medical History of significance: HTN DM Bladder CA s/p resection/urostomy complicated by mets to lung and liver Afib on coumadin CAD status post PCI 07/27 on ASA/plavix Objective: T: 98.6 HR: 76 BP: 100/61 Gen: well appearing male sitting upright breathing comfortably on room air in NAD HEENT: NC/AT. OP Clear, MMM Cardiac: S1/S2, 2/6 systolic murmur loudest at LSB. JVP 6 cm. Pulm: clear breath sounds bilaterally. No rales. Ext: WWP. No edema Labs: reviewed. K 4.9 Cr 1.34 INR 4.47 Echocardiogram 9.21: severely reduced LV function with global hypokinesis. poor quality study. A/P: 67 year old male with past medical history significant for bladder cancer s/p resection/urostomy complicated by mets to lung and liverwith atrial fibrillation on coumadin, HTN, HL, CAD s/p PCI admitted with infection found to be in atrial fibrillation with rapid ventricular response- currently improving on antibiotics, hemodynamically stable with HR in the 70s. #AHA/ACC Stage C HF; --echocardiogram with severely reduced LVEF, consider outpatient echocardiogram with definity contrast to better assess wall motion if within goals of care --continue GDMT including aspirin 81mg, metoprolol succinate 50mg, lisinopril 2.5mg #CAD s/p PCI --continue GDMT as above including ASA/plavix #pAfib --continue rate control with metoprolol succinate 50mg qday --continue coumadin with goal INR 2-3 (elevated today, management per primary team) Will follow-up with outpatient planer off [facility] for further management. No further recommendations at this time. We will sign off but if any questions or concerns please do not hesitate to contact me. Pool Ji MD
[2017-10-31] MEDS: LISINOPRIL 5 MG TABLET (FP) PO SCH (09:54)
[2017-10-31] MEDS: LACTOBACILLUS ACIDOPHILUS 1 TABLET PO SCH (09:55)
[2017-10-31] MEDS: ASPIRIN COATED 81 MG TABLET.EC PO SCH (09:55)
[2017-10-31] MEDS: PANTOPRAZOLE 40 MG TABLET (FP) PO SCH (09:55)
[2017-10-31] MEDS: CLOPIDOGREL BISULFATE 75 MG TABLET (FP) PO SCH (09:55)
[2017-10-31] MEDS: CITALOPRAM HYDROBROMIDE 10 MG TABLET (FP) PO SCH (09:55)
[2017-10-31] MEDS: SPIRONOLACTONE 25 MG TABLET (FP) PO SCH (09:56)
[2017-10-31] MEDS ORDERED: PT OWN MED DRAWER 7, Y5N ONE ×2 (14:56→21:54)
--- NOTE | 2017-10-31 17:43 | PN ---
Progress Note, Physician Chief Complaint: UTI History of Present Illness: NAD comfortable in bed alert but confused, knows that he is in the hospital Spoke to daughter, who is also primarily comoran speaking, questions translated by great grand daughter Elda to pat's daughter Bety. Pt did poorly with PT, candidate for SNF, daughter in agreement - Current Medication List Current Medications: Active Medications Acetaminophen (Tylenol -) 650 mg PO Q6H PRN PRN Reason: PAIN LEVEL 1-6 Acetaminophen (Tylenol -) 325 mg PO Q6H PRN PRN Reason: PAIN 7-10 Last Admin: 10/30/17 10:12 Dose: 325 mg Amoxicillin (Amoxicillin -) 500 mg PO TID [facility] Last Admin: 10/31/17 14:57 Dose: 500 mg Aspirin (Ecotrin -) 81 mg PO DAILY [facility] Last Admin: 10/31/17 09:55 Dose: 81 mg Citalopram Hydrobromide (Celexa -) 10 mg PO DAILY [facility] Last Admin: 10/31/17 09:55 Dose: 10 mg Clopidogrel Bisulfate (Plavix -) 75 mg PO DAILY [facility] Last Admin: 10/31/17 09:55 Dose: 75 mg Docusate Sodium (Colace -) 300 mg PO [facility] Last Admin: 10/30/17 21:28 Dose: 300 mg Insulin Aspart (Novolog Vial Sliding Scale -) 1 vial SQ [facility]; Protocol Last Admin: 10/31/17 17:19 Dose: Not Given Insulin Detemir (Levemir Vial) 60 units SQ DAILY@0700 [facility] Last Admin: 10/31/17 06:29 Dose: Not Given Lactobacillus Acidophilus (Bacid -) 1 tab PO DAILY [facility] Last Admin: 10/31/17 09:55 Dose: 1 tab Lisinopril (Prinivil) 2.5 mg PO DAILY [facility] Last Admin: 10/31/17 09:54 Dose: 2.5 mg Metoprolol Succinate (Toprol Xl -) 50 mg PO DAILY [facility] Last Admin: 10/31/17 09:55 Dose: 50 mg Oxycodone HCl (Roxicodone -) 5 mg PO Q6H PRN PRN Reason: PAIN 7-10 Last Admin: 10/30/17 10:12 Dose: 5 mg Pantoprazole Sodium (Protonix -) 40 mg PO DAILY [facility] Last Admin: 10/31/17 09:55 Dose: 40 mg Spironolactone (Aldactone -) 25 mg PO DAILY [facility] Last Admin: 10/31/17 09:56 Dose: 25 mg Warfarin Sodium (Coumadin -) 7.5 mg PO DAILY@1800 [facility] Last Admin: 10/29/17 17:02 Dose: 7.5 mg - Objective Vital Signs: Vital Signs Temperature 97.5 F L 10/31/17 14:00 Pulse Rate 73 10/31/17 14:00 Respiratory Rate 20 10/31/17 14:00 Blood Pressure 107/61 10/31/17 14:00 O2 Sat by Pulse Oximetry (%) 97 10/31/17 09:00 Constitutional: Yes: Well Nourished, No Distress, Calm Cardiovascular: Yes: Regular Rate and Rhythm Respiratory: Yes: Regular Gastrointestinal: Yes: Normal Bowel Sounds, Soft Musculoskeletal: Yes: WNL Extremities: Yes: WNL Edema: No Neurological: Yes: Alert, Pre-Existing Deficit Psychiatric: Yes: Alert Labs: CBC, BMP 10/31/17 05:30 10/31/17 05:30 INR, PTT INR 4.47 (0.83-1.09) H* 10/31/17 05:30 Problem List - Problems (1) UTI (urinary tract infection) Assessment/Plan: -UC: Microbiology 10/28/17 00:21 Urine - Urine Suprapubic Urine Culture - Final Escherichia Coli Enterococcus Faecalis 10/28/17 00:21 Blood - Peripheral Venous Blood Culture - Preliminary NO GROWTH OBTAINED AFTER 72 HOURS, INCUBATION TO CONTINUE FOR 2 DAYS. 10/28/17 00:21 Blood - Peripheral Venous Blood Culture - Preliminary NO GROWTH OBTAINED AFTER 72 HOURS, INCUBATION TO CONTINUE FOR 2 DAYS. 10/28/17 01:51 Stool Clostridium difficile (PCR) - Preliminary 10/29/17 12:00 Stool Clostridium difficile Antigen (MAGDA) - Final 10/29/17 12:00 Stool Clostridium difficile Toxin Assay - Final -Seen by ID -on PO amoxicillin Code(s): N39.0 - URINARY TRACT INFECTION, SITE NOT SPECIFIED Qualifiers: Urinary tract infection type: acute cystitis Hematuria presence: without hematuria Qualified Code(s): N30.00 - Acute cystitis without hematuria (2) Atrial fibrillation Assessment/Plan: on warfarin, on hold due to elevated INR -daily INR check Code(s): I48.91 - UNSPECIFIED ATRIAL FIBRILLATION Qualifiers: Atrial fibrillation type: persistent Qualified Code(s): I48.1 - Persistent atrial fibrillation (3) Diabetes Assessment/Plan: -A1c at 7.3, has not been getting levemir due to decreased blood sugars -d/c levemir -BGM ACHS -continue novolog sliding scale -diabetic diet Code(s): E11.9 - TYPE 2 DIABETES MELLITUS WITHOUT COMPLICATIONS Assessment/Plan see problem list
--- NOTE | 2017-10-31 17:47 | DS ---
Physical Examination Vital Signs: Vital Signs Temperature 97.5 F L 10/31/17 14:00 Pulse Rate 73 10/31/17 14:00 Respiratory Rate 20 10/31/17 14:00 Blood Pressure 107/61 10/31/17 14:00 O2 Sat by Pulse Oximetry (%) 97 10/31/17 09:00 Findings/Remarks: This is a 67 YOM with h/o metastatic bladder cancer (with mets to liver and lung , s/p suprapubic catheter placement), and A-fib (on coumadin), CHF (on furosemide) who p/w rapid heart rate and generalized weakness. The patient himself is a somewhat poor historian and denies symptoms other than feeling generally weak/unwell. He denies f/c/n/v/d/c, abdominal pain, chest pain, SOB, n /t/w focally, dizziness, lightheadedness, black/bloody stool, or other symptoms. On discussion with the patient's emergency contact over the phone ( who identifies herself as his caregiver but not as a family member) the patient lives alone, has been unable to care for himself, and has been increasingly generally weak today. She notes he has the metastatic cancer and no family members living close by. He has no advance directive paperwork that the caregiver knows of. Constitutional: Yes: Well Nourished, No Distress, Calm Cardiovascular: Yes: Regular Rate and Rhythm Respiratory: Yes: Regular Gastrointestinal: Yes: Normal Bowel Sounds, Soft Musculoskeletal: Yes: Muscle Weakness Edema: No Peripheral Pulses WNL: Yes Neurological: Yes: Alert, Pre-Existing Deficit Psychiatric: Yes: Alert Labs: CBC, BMP 10/31/17 05:30 10/31/17 05:30 Discharge Summary Reason For Visit: URINARY TRACT INFECTION, ATRIAL FIBRILLATION WITH Current Active Problems HEYDI (acute kidney injury) (Acute) Anemia (Acute) Atrial fibrillation with rapid ventricular response (Acute) Chronic systolic (congestive) heart failure (Acute) Diabetes 1.5, managed as type 2 (Acute) Leukocytosis (Acute) UTI (urinary tract infection) (Acute) Condition: Stable - Instructions Referrals: Iris Morales MD [Primary Care Provider] - iMtch Alvarado MD [Staff Physician] - Nati Villar MD [Staff Physician] - Disposition: [facility] - Home Medications Comprehensive Discharge Medication List: Ambulatory Orders Aspirin [Aspirin EC] 81 mg PO DAILY 08/25/17 Citalopram Hydrobromide [Citalopram HBr] 10 mg PO DAILY 08/25/17 Clopidogrel Bisulfate [Plavix] 75 mg PO DAILY 08/25/17 Ergocalciferol (Vitamin D2) [Drisdol] 1.25 mg PO WEEKLY 08/25/17 Insulin Glargine,Hum.rec.anlog [Basaglar Kwikpen U-100] 60 unit SQ DAILY Oxycodone HCl/Acetaminophen [Endocet 5-325 Tablet] 1 each PO Q6H PRN 08/25/17 Pantoprazole Sodium [Protonix] 40 mg PO DAILY 08/25/17 Acetaminophen [Tylenol .Regular Strength -] 650 mg PO Q6H PRN #120 tablet MDD 6 09/03/17 Docusate Sodium [Colace -] 300 mg PO HS #90 capsule 09/03/17 Insulin Aspart [Novolog Flexpen] 20 unit SQ BID #4 insuln.pen 09/03/17 Lisinopril [Prinivil] 2.5 mg PO DAILY #30 tablet 09/03/17 Metoprolol Succinate [Toprol XL -] 50 mg PO DAILY #30 tab.sr.24h 09/03/17 Spironolactone [Aldactone -] 25 mg PO DAILY #30 tablet 09/03/17 Warfarin Sodium [Coumadin] 2 mg PO DAILY #30 tablet 09/03/17 Warfarin Sodium [Coumadin] 5 mg PO DAILY #3 tablet 09/03/17
[2017-10-31] MEDS: DOCUSATE SODIUM 100 MG CAPSULE (FP) PO SCH (21:56)
[2017-11-01] MEDS: AMOXICILLIN 500 MG CAPSULE (FP) PO SCH ×3 (05:48→21:37)
[2017-11-01] MEDS: INSULIN SLIDING SCALE (NOVOLOG) 1 VIAL SQ SCH ×3 (06:09→21:23)
[2017-11-01 06:14] LABS: BASO % 0.2 % (0-2.0); EOS % 0.6 % (0-4.5); HEMATOCRIT 32.7 % (35.4-49); HEMOGLOBIN 10.7 GM/dL (11.7-16.9); MCH 27.1 pg (25.7-33.7); MCHC 32.7 g/dl (32.0-35.9); MEAN CELL VOLUME 82.8 fl (80-96); MONO % 7.9 % (3.8-10.2); NEUT % 86.3 % (42.8-82.8); PLATELET COUNT 321 K/MM3 (134-434); RBC 3.95 M/mm3 (4.00-5.60); RDW 16.1 % (11.9-15.9); WHITE BLOOD COUNT 11.6 K/mm3 (4.0-10.0)
[2017-11-01 06:38] LABS: PROTHROMBIN TIME (PATIENT) 45.6 SEC (9.7-13.0)
[2017-11-01 07:03] LABS: INR 4.04 (0.83-1.09)
[2017-11-01 07:26] LABS: ALK PHOS 255 U/L (45-117); ANION GAP 9 MMOL/L (8-16); BILIRUBIN,TOTAL 0.4 mg/dL (0.2-1); BLOOD UREA NITROGEN 30 mg/dL (7-18); CALCIUM 8.7 mg/dL (8.5-10.1); CHLORIDE 104 mmol/L (98-107); CO2 20 mmol/L (21-32); CREATININE 1.1 mg/dL (0.55-1.3); GLUCOSE,RANDOM 97 mg/dL (74-106); SGOT/AST 17 U/L (15-37); SGPT/ALT 22 U/L (13-61); SODIUM 132 mmol/L (136-145); TOT PROT 6.3 g/dl (6.4-8.2)
[2017-11-01] MEDS: CLOPIDOGREL BISULFATE 75 MG TABLET (FP) PO SCH (10:19)
[2017-11-01] MEDS: PANTOPRAZOLE 40 MG TABLET (FP) PO SCH (10:19)
[2017-11-01] MEDS: LACTOBACILLUS ACIDOPHILUS 1 TABLET PO SCH (10:19)
[2017-11-01] MEDS: SPIRONOLACTONE 25 MG TABLET (FP) PO SCH (10:19)
[2017-11-01] MEDS: LISINOPRIL 5 MG TABLET (FP) PO SCH (10:20)
[2017-11-01] MEDS: CITALOPRAM HYDROBROMIDE 10 MG TABLET (FP) PO SCH (10:20)
[2017-11-01] MEDS: ASPIRIN COATED 81 MG TABLET.EC PO SCH (10:20)
[2017-11-01] MEDS ORDERED: PHYTONADIONE 5 MG TABLET PO ONE (12:42)
--- NOTE | 2017-11-01 12:47 | PN ---
Progress Note, Physician Chief Complaint: UTI History of Present Illness: NAD comfortable in bed alert but confused, knows that he is in the hospital Spoke to daughter, who is also primarily uzbek speaking, questions translated by great grand daughter Elda to pat's daughter Bety. Pt did poorly with PT, candidate for SNF, daughter in agreement, ok with [facility] - Current Medication List Current Medications: Active Medications Acetaminophen (Tylenol -) 650 mg PO Q6H PRN PRN Reason: PAIN LEVEL 1-6 Acetaminophen (Tylenol -) 325 mg PO Q6H PRN PRN Reason: PAIN 7-10 Last Admin: 10/30/17 10:12 Dose: 325 mg Amoxicillin (Amoxicillin -) 500 mg PO TID [facility] Last Admin: 11/01/17 05:48 Dose: 500 mg Aspirin (Ecotrin -) 81 mg PO DAILY [facility] Last Admin: 11/01/17 10:20 Dose: 81 mg Citalopram Hydrobromide (Celexa -) 10 mg PO DAILY [facility] Last Admin: 11/01/17 10:20 Dose: 10 mg Clopidogrel Bisulfate (Plavix -) 75 mg PO DAILY [facility] Last Admin: 11/01/17 10:19 Dose: 75 mg Docusate Sodium (Colace -) 300 mg PO HS [facility] Last Admin: 10/31/17 21:56 Dose: 300 mg Insulin Aspart (Novolog Vial Sliding Scale -) 1 vial SQ ACHS [facility]; Protocol Last Admin: 11/01/17 06:09 Dose: Not Given Lactobacillus Acidophilus (Bacid -) 1 tab PO DAILY [facility] Last Admin: 11/01/17 10:19 Dose: 1 tab Lisinopril (Prinivil) 2.5 mg PO DAILY [facility] Last Admin: 11/01/17 10:20 Dose: 2.5 mg Metoprolol Succinate (Toprol Xl -) 50 mg PO DAILY [facility] Last Admin: 11/01/17 10:19 Dose: 50 mg Oxycodone HCl (Roxicodone -) 5 mg PO Q6H PRN PRN Reason: PAIN 7-10 Last Admin: 10/30/17 10:12 Dose: 5 mg Pantoprazole Sodium (Protonix -) 40 mg PO DAILY [facility] Last Admin: 11/01/17 10:19 Dose: 40 mg Phytonadione (Mephyton -) 5 mg PO ONCE ONE Stop: 11/01/17 12:43 Spironolactone (Aldactone -) 25 mg PO DAILY [facility] Last Admin: 11/01/17 10:19 Dose: 25 mg Warfarin Sodium (Coumadin -) 7.5 mg PO DAILY@1800 [facility] Last Admin: 10/29/17 17:02 Dose: 7.5 mg - Objective Vital Signs: Vital Signs Temperature 99.2 F 11/01/17 05:11 Pulse Rate 80 11/01/17 05:11 Respiratory Rate 18 11/01/17 09:00 Blood Pressure 112/62 11/01/17 05:11 O2 Sat by Pulse Oximetry (%) 100 11/01/17 09:00 Constitutional: Yes: Well Nourished, No Distress, Calm Cardiovascular: Yes: Regular Rate and Rhythm Respiratory: Yes: Regular Gastrointestinal: Yes: Normal Bowel Sounds, Soft Musculoskeletal: Yes: Muscle Weakness Extremities: Yes: WNL Edema: No Peripheral Pulses WNL: Yes Neurological: Yes: Alert, Pre-Existing Deficit Psychiatric: Yes: Alert Labs: CBC, BMP 11/01/17 05:03 11/01/17 05:03 INR, PTT INR 4.04 (0.83-1.09) H* 11/01/17 05:03 Problem List - Problems (1) UTI (urinary tract infection) Assessment/Plan: -UC: Microbiology 10/28/17 00:21 Urine - Urine Suprapubic Urine Culture - Final Escherichia Coli Enterococcus Faecalis 10/28/17 00:21 Blood - Peripheral Venous Blood Culture - Preliminary NO GROWTH OBTAINED AFTER 72 HOURS, INCUBATION TO CONTINUE FOR 2 DAYS. 10/28/17 00:21 Blood - Peripheral Venous Blood Culture - Preliminary NO GROWTH OBTAINED AFTER 72 HOURS, INCUBATION TO CONTINUE FOR 2 DAYS. 10/28/17 01:51 Stool Clostridium difficile (PCR) - Preliminary 10/29/17 12:00 Stool Clostridium difficile Antigen (MAGDA) - Final 10/29/17 12:00 Stool Clostridium difficile Toxin Assay - Final -Seen by ID -on PO amoxicillin Code(s): N39.0 - URINARY TRACT INFECTION, SITE NOT SPECIFIED Qualifiers: Urinary tract infection type: acute cystitis Hematuria presence: without hematuria Qualified Code(s): N30.00 - Acute cystitis without hematuria (2) Atrial fibrillation Assessment/Plan: on warfarin, on hold due to elevated INR -daily INR check Code(s): I48.91 - UNSPECIFIED ATRIAL FIBRILLATION Qualifiers: Atrial fibrillation type: persistent Qualified Code(s): I48.1 - Persistent atrial fibrillation (3) Diabetes Assessment/Plan: -A1c at 7.3, has not been getting levemir due to decreased blood sugars -d/c levemir -BGM ACHS -continue novolog sliding scale -diabetic diet Code(s): E11.9 - TYPE 2 DIABETES MELLITUS WITHOUT COMPLICATIONS Assessment/Plan see problem list
[2017-11-01] MEDS ORDERED: PT OWN MED DRAWER 7, Y5N ONE (16:16)
--- NOTE | 2017-11-01 18:06 | PN ---
Progress Note, Physician Chief Complaint: improving sugars no complaint History of Present Illness: dm,ashd,cad,diabetic neuropathy with labile sugar levels - Current Medication List Current Medications: Active Medications Acetaminophen (Tylenol -) 650 mg PO Q6H PRN PRN Reason: PAIN LEVEL 1-6 Acetaminophen (Tylenol -) 325 mg PO Q6H PRN PRN Reason: PAIN 7-10 Last Admin: 10/30/17 10:12 Dose: 325 mg Amoxicillin (Amoxicillin -) 500 mg PO TID [facility] Last Admin: 11/01/17 05:48 Dose: 500 mg Aspirin (Ecotrin -) 81 mg PO DAILY [facility] Last Admin: 11/01/17 10:20 Dose: 81 mg Citalopram Hydrobromide (Celexa -) 10 mg PO DAILY [facility] Last Admin: 11/01/17 10:20 Dose: 10 mg Clopidogrel Bisulfate (Plavix -) 75 mg PO DAILY [facility] Last Admin: 11/01/17 10:19 Dose: 75 mg Docusate Sodium (Colace -) 300 mg PO [facility] Last Admin: 10/31/17 21:56 Dose: 300 mg Insulin Aspart (Novolog Vial Sliding Scale -) 1 vial SQ [facility]; Protocol Last Admin: 11/01/17 06:09 Dose: Not Given Lactobacillus Acidophilus (Bacid -) 1 tab PO DAILY [facility] Last Admin: 11/01/17 10:19 Dose: 1 tab Lisinopril (Prinivil) 2.5 mg PO DAILY [facility] Last Admin: 11/01/17 10:20 Dose: 2.5 mg Metoprolol Succinate (Toprol Xl -) 50 mg PO DAILY [facility] Last Admin: 11/01/17 10:19 Dose: 50 mg Oxycodone HCl (Roxicodone -) 5 mg PO Q6H PRN PRN Reason: PAIN 7-10 Last Admin: 10/30/17 10:12 Dose: 5 mg Pantoprazole Sodium (Protonix -) 40 mg PO DAILY [facility] Last Admin: 11/01/17 10:19 Dose: 40 mg Spironolactone (Aldactone -) 25 mg PO DAILY [facility] Last Admin: 11/01/17 10:19 Dose: 25 mg Warfarin Sodium (Coumadin -) 7.5 mg PO DAILY@1800 [facility] Last Admin: 10/29/17 17:02 Dose: 7.5 mg - Objective Vital Signs: Vital Signs Temperature 98.2 F 11/01/17 17:59 Pulse Rate 72 11/01/17 17:59 Respiratory Rate 20 11/01/17 17:59 Blood Pressure 114/62 11/01/17 17:59 O2 Sat by Pulse Oximetry (%) 100 11/01/17 09:00 Constitutional: Yes: Calm Eyes: Yes: EOM Intact HENT: Yes: Normocephalic Neck: Yes: Trachea Midline Cardiovascular: Yes: Regular Rate and Rhythm Respiratory: Yes: CTA Bilaterally Gastrointestinal: Yes: Normal Bowel Sounds ...Rectal Exam: Yes: Deferred Genitourinary: Yes: WNL Breast(s): Yes: WNL Musculoskeletal: Yes: Muscle Pain, Muscle Weakness Labs: CBC, BMP 11/01/17 05:03 11/01/17 05:03 INR, PTT INR 4.04 (0.83-1.09) H* 11/01/17 05:03 Problem List - Problems (1) Diabetes 1.5, managed as type 2 Code(s): E10.9 - TYPE 1 DIABETES MELLITUS WITHOUT COMPLICATIONS (2) Atrial fibrillation with rapid ventricular response Code(s): I48.91 - UNSPECIFIED ATRIAL FIBRILLATION (3) Leukocytosis Code(s): D72.829 - ELEVATED WHITE BLOOD CELL COUNT, UNSPECIFIED (4) Atrial fibrillation Code(s): I48.91 - UNSPECIFIED ATRIAL FIBRILLATION Qualifiers: Atrial fibrillation type: persistent Qualified Code(s): I48.1 - Persistent atrial fibrillation (5) Bladder cancer Code(s): C67.9 - MALIGNANT NEOPLASM OF BLADDER, UNSPECIFIED (6) 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 transplanted heart: [place] heart Associated angina: without angina Qualified Code(s): I25.10 - Atherosclerotic heart disease of [place] coronary artery without angina pectoris Assessment/Plan Current Active Problems HEYDI (acute kidney injury) (Acute) Anemia (Acute) Atrial fibrillation with rapid ventricular response (Acute) Chronic systolic (congestive) heart failure (Acute) Diabetes 1.5, managed as type 2 (Acute) Leukocytosis (Acute) UTI (urinary tract infection) (Acute) Abnormal Lab Results 11/01/17 11/01/17 11/01/17 05:03 05:03 05:03 WBC 11.6 H RBC 3.95 L Hgb 10.7 L Hct 32.7 L RDW 16.1 H Absolute Neuts (auto) 10.1 H Neutrophils % 86.3 H Lymphocytes % 5.0 L PT with INR 45.60 H INR 4.04 H* Sodium 132 L Carbon Dioxide 20 L BUN 30 H Ferritin Alkaline Phosphatase 255 H Total Protein 6.3 L Albumin 2.0 L Vitamin B12 Free T4 11/01/17 05:03 WBC RBC Hgb Hct RDW Absolute Neuts (auto) Neutrophils % Lymphocytes % PT with INR INR Sodium Carbon Dioxide BUN Ferritin 537.7 H Alkaline Phosphatase Total Protein Albumin Vitamin B12 5957 H Free T4 1.37 H Current Medications Generic Name Dose Route Start Last Admin Trade Name Freq PRN Reason Stop Dose Admin Acetaminophen 650 mg 10/28/17 10:39 Tylenol - PO Q6H PRN PAIN LEVEL 1-6 Acetaminophen 325 mg 10/28/17 10:55 10/30/17 10:12 Tylenol - PO 325 mg Q6H PRN Administration PAIN 7-10 Amoxicillin 500 mg 10/30/17 22:00 11/01/17 05:48 Amoxicillin - PO 500 mg TID [facility] Administration Aspirin 81 mg 10/29/17 10:00 11/01/17 10:20 Ecotrin - PO 81 mg DAILY [facility] Administration Citalopram Hydrobromide 10 mg 10/29/17 10:00 11/01/17 10:20 Celexa - PO 10 mg DAILY [facility] Administration Clopidogrel Bisulfate 75 mg 10/28/17 10:45 11/01/17 10:19 Plavix - PO 75 mg DAILY [facility] Administration Docusate Sodium 300 mg 10/28/17 22:00 10/31/17 21:56 Colace - PO 300 mg HS [facility] Administration Insulin Aspart 1 vial 10/28/17 22:00 11/01/17 06:09 Novolog Vial Sliding Scale - SQ Not Given ACHS [facility] Protocol Lactobacillus Acidophilus 1 tab 10/30/17 15:00 11/01/17 10:19 Bacid - PO 1 tab DAILY [facility] Administration Lisinopril 2.5 mg 10/29/17 10:00 11/01/17 10:20 Prinivil PO 2.5 mg DAILY [facility] Administration Metoprolol Succinate 50 mg 10/28/17 21:00 11/01/17 10:19 Toprol Xl - PO 50 mg DAILY [facility] Administration Oxycodone HCl 5 mg 10/28/17 10:55 10/30/17 10:12 Roxicodone - PO 5 mg Q6H PRN Administration PAIN 7-10 Pantoprazole Sodium 40 mg 10/29/17 10:00 11/01/17 10:19 Protonix - PO 40 mg DAILY [facility] Administration Spironolactone 25 mg 10/29/17 10:00 11/01/17 10:19 Aldactone - PO 25 mg DAILY [facility] Administration Warfarin Sodium 7.5 mg 10/28/17 18:00 10/29/17 17:02 Coumadin - PO 7.5 mg DAILY@1800 [facility] Administration plan: nutrition guide family to advise for continued follow with outpatient care continue same dose insulin
[2017-11-01] MEDS: DOCUSATE SODIUM 100 MG CAPSULE (FP) PO SCH (21:33)
[2017-11-02] MEDS ORDERED: PT OWN MED DRAWER 7, Y5N ONE ×3 (05:44→22:15)
[2017-11-02] MEDS: AMOXICILLIN 500 MG CAPSULE (FP) PO SCH ×3 (05:51→22:17)
[2017-11-02] MEDS: INSULIN SLIDING SCALE (NOVOLOG) 1 VIAL SQ SCH ×4 (05:59→22:26)
[2017-11-02 06:52] LABS: INR 3.43 (0.83-1.09); PROTHROMBIN TIME (PATIENT) 38.8 SEC (9.7-13.0)
[2017-11-02 07:01] LABS: BASO % 0.3 % (0-2.0); EOS % 0.7 % (0-4.5); HEMATOCRIT 34.7 % (35.4-49); HEMOGLOBIN 11.1 GM/dL (11.7-16.9); MCH 26.6 pg (25.7-33.7); MCHC 32.1 g/dl (32.0-35.9); MEAN PLT VOLUME 9.6 fl (7.5-11.1); MONO % 8.6 % (3.8-10.2); NEUT % 85.4 % (42.8-82.8); PLATELET COUNT 346 K/MM3 (134-434); RBC 4.18 M/mm3 (4.00-5.60); WHITE BLOOD COUNT 12.5 K/mm3 (4.0-10.0)
[2017-11-02 07:13] LABS: ALBUMIN 2.1 g/dl (3.4-5.0); ALK PHOS 263 U/L (45-117); ANION GAP 10 MMOL/L (8-16); BILIRUBIN,TOTAL 0.4 mg/dL (0.2-1); BLOOD UREA NITROGEN 32 mg/dL (7-18); CALCIUM 9.1 mg/dL (8.5-10.1); CHLORIDE 104 mmol/L (98-107); CO2 20 mmol/L (21-32); CREATININE 1.1 mg/dL (0.55-1.3); GLUCOSE,RANDOM 103 mg/dL (74-106); POTASSIUM 4.3 mmol/L (3.5-5.1); SGOT/AST 16 U/L (15-37); SGPT/ALT 24 U/L (13-61); SODIUM 134 mmol/L (136-145); TOT PROT 6.7 g/dl (6.4-8.2)
[2017-11-02 08:06] LABS: SERUM IRON SATURATION 12 % (15-55); TOTAL IRON BINDING CAPACITY 162 ug/dL (250-450); UIBC 142 ug/dL (111-343)
--- NOTE | 2017-11-02 08:58 | PN ---
Progress Note, Physician - Current Medication List Current Medications: Active Medications Acetaminophen (Tylenol -) 650 mg PO Q6H PRN PRN Reason: PAIN LEVEL 1-6 Acetaminophen (Tylenol -) 325 mg PO Q6H PRN PRN Reason: PAIN 7-10 Last Admin: 10/30/17 10:12 Dose: 325 mg Amoxicillin (Amoxicillin -) 500 mg PO TID [facility] Last Admin: 11/02/17 05:51 Dose: 500 mg Aspirin (Ecotrin -) 81 mg PO DAILY [facility] Last Admin: 11/01/17 10:20 Dose: 81 mg Citalopram Hydrobromide (Celexa -) 10 mg PO DAILY [facility] Last Admin: 11/01/17 10:20 Dose: 10 mg Clopidogrel Bisulfate (Plavix -) 75 mg PO DAILY [facility] Last Admin: 11/01/17 10:19 Dose: 75 mg Docusate Sodium (Colace -) 300 mg PO HS [facility] Last Admin: 11/01/17 21:33 Dose: 300 mg Insulin Aspart (Novolog Vial Sliding Scale -) [address] [facility]; Protocol Last Admin: 11/02/17 05:59 Dose: Not Given Lactobacillus Acidophilus (Bacid -) 1 tab PO DAILY [facility] Last Admin: 11/01/17 10:19 Dose: 1 tab Lisinopril (Prinivil) 2.5 mg PO DAILY [facility] Last Admin: 11/01/17 10:20 Dose: 2.5 mg Metoprolol Succinate (Toprol Xl -) 50 mg PO DAILY [facility] Last Admin: 11/01/17 10:19 Dose: 50 mg Oxycodone HCl (Roxicodone -) 5 mg PO Q6H PRN PRN Reason: PAIN 7-10 Last Admin: 10/30/17 10:12 Dose: 5 mg Pantoprazole Sodium (Protonix -) 40 mg PO DAILY [facility] Last Admin: 11/01/17 10:19 Dose: 40 mg Spironolactone (Aldactone -) 25 mg PO DAILY [facility] Last Admin: 11/01/17 10:19 Dose: 25 mg Warfarin Sodium (Coumadin -) 7.5 mg PO DAILY@1800 [facility] Last Admin: 10/29/17 17:02 Dose: 7.5 mg - Objective Vital Signs: Vital Signs Temperature 98.2 F 11/02/17 05:00 Pulse Rate 82 11/02/17 08:26 Respiratory Rate 18 09/24/18 08:27 Blood Pressure 103/60 11/02/17 08:26 O2 Sat by Pulse Oximetry (%) 100 11/02/17 08:27 Labs: CBC, BMP 11/02/17 05:30 11/02/17 05:30 INR, PTT INR 3.43 (0.83-1.09) H 11/02/17 05:30 Problem List - Problems (1) Leukocytosis Assessment/Plan: -Follow Cultures -Abx Per ID-- -Follow Lab-on PO amoxicillin Microbiology 10/28/17 00:21 Urine - Urine Suprapubic Urine Culture - Final Escherichia Coli Enterococcus Faecalis 10/28/17 00:21 Blood - Peripheral Venous Blood Culture - Preliminary NO GROWTH OBTAINED AFTER 72 HOURS, INCUBATION TO CONTINUE FOR 2 DAYS. 10/28/17 00:21 Blood - Peripheral Venous Blood Culture - Preliminary NO GROWTH OBTAINED AFTER 72 HOURS, INCUBATION TO CONTINUE FOR 2 DAYS. 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 Assessment/Plan: -Oncology Consult Code(s): C67.9 - MALIGNANT NEOPLASM OF BLADDER, UNSPECIFIED; C78.00 - SECONDARY MALIGNANT NEOPLASM OF UNSPECIFIED LUNG (3) Atrial fibrillation Assessment/Plan: -Home meds -Monitor on Tele -Cardio on board on warfarin, on hold due to elevated INR -daily INR check Code(s): I48.91 - UNSPECIFIED ATRIAL FIBRILLATION Qualifiers: Atrial fibrillation type: persistent Qualified Code(s): I48.1 - Persistent atrial fibrillation (4) CHF (congestive heart failure) Assessment/Plan: -No evidence of failure Code(s): I50.9 - HEART FAILURE, UNSPECIFIED (5) Diabetes Assessment/Plan: -A1c at 7.3, has not been getting levemir due to decreased blood sugars -d/c levemir -BGM ACHS -continue novolog sliding scale -diabetic diet Code(s): E11.9 - TYPE 2 DIABETES MELLITUS WITHOUT COMPLICATIONS
[2017-11-02] MEDS: LACTOBACILLUS ACIDOPHILUS 1 TABLET PO SCH (11:33)
[2017-11-02] MEDS: LISINOPRIL 5 MG TABLET (FP) PO SCH (11:33)
[2017-11-02] MEDS: CLOPIDOGREL BISULFATE 75 MG TABLET (FP) PO SCH (11:33)
[2017-11-02] MEDS: CITALOPRAM HYDROBROMIDE 10 MG TABLET (FP) PO SCH (11:33)
[2017-11-02] MEDS: ASPIRIN COATED 81 MG TABLET.EC PO SCH (11:33)
[2017-11-02] MEDS: PANTOPRAZOLE 40 MG TABLET (FP) PO SCH (11:33)
[2017-11-02] MEDS: SPIRONOLACTONE 25 MG TABLET (FP) PO SCH (11:34)
--- NOTE | 2017-11-02 12:40 | PN ---
Progress Note, Physician History of Present Illness: This is a 67 YOM with h/o metastatic bladder cancer (with mets to liver and lung , s/p suprapubic catheter placement), and A-fib (on coumadin), CHF (on furosemide) who p/w rapid heart rate and generalized weakness. The patient himself is a somewhat poor historian and denies symptoms other than feeling generally weak/unwell. He denies f/c/n/v/d/c, abdominal pain, chest pain, SOB, n /t/w focally, dizziness, lightheadedness, black/bloody stool, or other symptoms. On discussion with the patient's emergency contact over the phone ( who identifies herself as his caregiver but not as a family member) the patient lives alone, has been unable to care for himself, and has been increasingly generally weak today. She notes he has the metastatic cancer and no family members living close by. He has no advance directive paperwork that the caregiver knows of. Cardiac Cath: 07/03/17 LAD proximal 40%, mid 40%, distal 30% LCx mid 30% RCA mid 80%, RPDA 40% LVEDP ~ 20 mmHg No LV gram performed in order to minimize contrast load Also limited angiography performed due to elevated creatinine No significant on pull back Moderate pulmonary hypertension as noted PASP up to 50 mmHg Mean RA pressure ~ 8-10 mmHg Ongoing medical problems Hypertension Diabetes mellitus Bladder cancer Nonobstructive CAD A Fib - Current Medication List Current Medications: Active Medications Acetaminophen (Tylenol -) 650 mg PO Q6H PRN PRN Reason: PAIN LEVEL 1-6 Acetaminophen (Tylenol -) 325 mg PO Q6H PRN PRN Reason: PAIN 7-10 Last Admin: 10/30/17 10:12 Dose: 325 mg Amoxicillin (Amoxicillin -) 500 mg PO TID [facility] Last Admin: 11/02/17 05:51 Dose: 500 mg Aspirin (Ecotrin -) 81 mg PO DAILY [facility] Last Admin: 11/02/17 11:33 Dose: 81 mg Citalopram Hydrobromide (Celexa -) 10 mg PO DAILY [facility] Last Admin: 11/02/17 11:33 Dose: 10 mg Clopidogrel Bisulfate (Plavix -) 75 mg PO DAILY [facility] Last Admin: 11/02/17 11:33 Dose: 75 mg Docusate Sodium (Colace -) 300 mg PO HS [facility] Last Admin: 11/01/17 21:33 Dose: 300 mg Insulin Aspart (Novolog Vial Sliding Scale -) 1 vial SQ ACHS [facility]; Protocol Last Admin: 11/02/17 11:34 Dose: Not Given Lactobacillus Acidophilus (Bacid -) 1 tab PO DAILY [facility] Last Admin: 11/02/17 11:33 Dose: 1 tab Lisinopril (Prinivil) 2.5 mg PO DAILY [facility] Last Admin: 11/02/17 11:33 Dose: 2.5 mg Metoprolol Succinate (Toprol Xl -) 50 mg PO DAILY [facility] Last Admin: 11/02/17 11:33 Dose: 50 mg Oxycodone HCl (Roxicodone -) 5 mg PO Q6H PRN PRN Reason: PAIN 7-10 Last Admin: 10/30/17 10:12 Dose: 5 mg Pantoprazole Sodium (Protonix -) 40 mg PO DAILY [facility] Last Admin: 11/02/17 11:33 Dose: 40 mg Spironolactone (Aldactone -) 25 mg PO DAILY [facility] Last Admin: 11/02/17 11:34 Dose: 25 mg Warfarin Sodium (Coumadin -) 5 mg PO DAILY@1800 [facility] - Objective Vital Signs: Vital Signs Temperature 98.2 F 11/02/17 05:00 Pulse Rate 82 11/02/17 08:26 Respiratory Rate 18 11/02/17 08:27 Blood Pressure 103/60 11/02/17 08:26 O2 Sat by Pulse Oximetry (%) 100 11/02/17 08:27 Eyes: Yes: WNL, Conjunctiva Clear, EOM Intact HENT: Yes: WNL, Atraumatic, Normocephalic Neck: Yes: WNL, Supple, Trachea Midline Cardiovascular: Yes: WNL, Regular Rate and Rhythm Respiratory: Yes: WNL, Regular, CTA Bilaterally Gastrointestinal: Yes: WNL, Normal Bowel Sounds Genitourinary: Yes: WNL Musculoskeletal: Yes: WNL Extremities: Yes: WNL Edema: No Integumentary: Yes: WNL Neurological: Yes: WNL, Alert, Oriented ...Motor Strength: WNL Psychiatric: Yes: WNL Labs: CBC, BMP 11/02/17 05:30 11/02/17 05:30 INR, PTT INR 3.43 (0.83-1.09) H 11/02/17 05:30 Problem List - Problems (1) Atrial fibrillation with rapid ventricular response Code(s): I48.91 - UNSPECIFIED ATRIAL FIBRILLATION (2) UTI (urinary tract infection) Code(s): N39.0 - URINARY TRACT INFECTION, SITE NOT SPECIFIED Qualifiers: Urinary tract infection type: acute cystitis Hematuria presence: without hematuria Qualified Code(s): N30.00 - Acute cystitis without hematuria (3) Atrial fibrillation Code(s): I48.91 - UNSPECIFIED ATRIAL FIBRILLATION Qualifiers: Atrial fibrillation type: persistent Qualified Code(s): I48.1 - Persistent atrial fibrillation (4) Bladder cancer Code(s): C67.9 - MALIGNANT NEOPLASM OF BLADDER, UNSPECIFIED (5) 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 transplanted heart: [place] heart Associated angina: without angina Qualified Code(s): I25.10 - Atherosclerotic heart disease of [place] coronary artery without angina pectoris (7) CHF (congestive heart failure) Code(s): I50.9 - HEART FAILURE, UNSPECIFIED (8) 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 Code(s): C67.9 - MALIGNANT NEOPLASM OF BLADDER, UNSPECIFIED; C78.7 - SECONDARY MALIG NEOPLASM OF LIVER AND INTRAHEPATIC BILE DUCT (9) Cardiomyopathy Code(s): I42.9 - CARDIOMYOPATHY, UNSPECIFIED Qualifiers: Cardiomyopathy type: ischemic Qualified Code(s): I25.5 - Ischemic cardiomyopathy (10) Chronic anticoagulation Code(s): Z79.01 - PRISON (CURRENT) USE OF ANTICOAGULANTS (11) Confusion Code(s): R41.0 - DISORIENTATION, UNSPECIFIED (12) Constipation Code(s): K59.00 - CONSTIPATION, UNSPECIFIED (13) Diabetes Code(s): E11.9 - TYPE 2 DIABETES MELLITUS WITHOUT COMPLICATIONS (14) Hematuria Code(s): R31.9 - HEMATURIA, UNSPECIFIED (15) Hyperlipidemia Code(s): E78.5 - HYPERLIPIDEMIA, UNSPECIFIED Qualifiers: Hyperlipidemia type: pure hypercholesterolemia Qualified Code(s): E78.00 - Pure hypercholesterolemia, unspecified; E78.0 - Pure hypercholesterolemia (16) Hypertension Code(s): I10 - ESSENTIAL (PRIMARY) HYPERTENSION Qualifiers: Hypertension type: essential hypertension Qualified Code(s): I10 - Essential (primary) hypertension (17) Metastasis Code(s): C79.9 - SECONDARY MALIGNANT NEOPLASM OF UNSPECIFIED SITE (18) Obesity Code(s): E66.9 - OBESITY, UNSPECIFIED (19) Rectal bleed Code(s): K62.5 - HEMORRHAGE OF ANUS AND RECTUM (20) Renal dysfunction Code(s): N28.9 - DISORDER OF KIDNEY AND URETER, UNSPECIFIED (21) Renal insufficiency Code(s): N28.9 - DISORDER OF KIDNEY AND URETER, UNSPECIFIED (22) Renal insufficiency, mild Code(s): N28.9 - DISORDER OF KIDNEY AND URETER, UNSPECIFIED (23) S/P coronary artery stent placement Code(s): Z95.5 - PRESENCE OF CORONARY ANGIOPLASTY IMPLANT AND GRAFT (24) SOB (shortness of breath) Code(s): R06.02 - SHORTNESS OF BREATH (25) Sepsis due to urinary tract infection Code(s): A41.9 - SEPSIS, UNSPECIFIED ORGANISM; N39.0 - URINARY TRACT INFECTION, SITE NOT SPECIFIED (26) Supratherapeutic INR Code(s): R79.1 - ABNORMAL COAGULATION PROFILE Assessment/Plan This is a 67 YOM with h/o metastatic bladder cancer (with mets to liver and lung , s/p suprapubic catheter placement), and A-fib (on coumadin), CHF (on furosemide) who p/w rapid heart rate and generalized weakness. Plan cont ac metoprolol for rate control cardiac calvin stable
--- NOTE | 2017-11-02 12:52 | PN ---
Progress Note, Physician History of Present Illness: Pt seen and examined at bedside. He is awake and appears comfortable. He denies shortness of breath. - Current Medication List Current Medications: Active Medications Acetaminophen (Tylenol -) 650 mg PO Q6H PRN PRN Reason: PAIN LEVEL 1-6 Acetaminophen (Tylenol -) 325 mg PO Q6H PRN PRN Reason: PAIN 7-10 Last Admin: 10/30/17 10:12 Dose: 325 mg Amoxicillin (Amoxicillin -) 500 mg PO TID [facility] Last Admin: 11/02/17 05:51 Dose: 500 mg Aspirin (Ecotrin -) 81 mg PO DAILY [facility] Last Admin: 11/02/17 11:33 Dose: 81 mg Citalopram Hydrobromide (Celexa -) 10 mg PO DAILY [facility] Last Admin: 11/02/17 11:33 Dose: 10 mg Clopidogrel Bisulfate (Plavix -) 75 mg PO DAILY [facility] Last Admin: 11/02/17 11:33 Dose: 75 mg Docusate Sodium (Colace -) 300 mg PO HS [facility] Last Admin: 11/01/17 21:33 Dose: 300 mg Insulin Aspart (Novolog Vial Sliding Scale -) 1 vial SQ [facility]; Protocol Last Admin: 11/02/17 11:34 Dose: Not Given Lactobacillus Acidophilus (Bacid -) 1 tab PO DAILY [facility] Last Admin: 11/02/17 11:33 Dose: 1 tab Lisinopril (Prinivil) 2.5 mg PO DAILY [facility] Last Admin: 11/02/17 11:33 Dose: 2.5 mg Metoprolol Succinate (Toprol Xl -) 50 mg PO DAILY [facility] Last Admin: 11/02/17 11:33 Dose: 50 mg Oxycodone HCl (Roxicodone -) 5 mg PO Q6H PRN PRN Reason: PAIN 7-10 Last Admin: 10/30/17 10:12 Dose: 5 mg Pantoprazole Sodium (Protonix -) 40 mg PO DAILY [facility] Last Admin: 11/02/17 11:33 Dose: 40 mg Spironolactone (Aldactone -) 25 mg PO DAILY [facility] Last Admin: 11/02/17 11:34 Dose: 25 mg Warfarin Sodium (Coumadin -) 5 mg PO DAILY@1800 [facility] - Objective Vital Signs: Vital Signs Temperature 98.2 F 11/02/17 05:00 Pulse Rate 82 11/02/17 08:26 Respiratory Rate 18 11/02/17 08:27 Blood Pressure 103/60 11/02/17 08:26 O2 Sat by Pulse Oximetry (%) 100 11/02/17 08:27 Constitutional: Yes: Calm Eyes: Yes: Conjunctiva Clear HENT: Yes: Atraumatic Cardiovascular: Yes: S1, S2 Respiratory: Yes: CTA Bilaterally Gastrointestinal: Yes: Normal Bowel Sounds, Soft Genitourinary: Yes: Other (ileal conduit) Musculoskeletal: Yes: WNL Edema: No Psychiatric: Yes: Oriented Labs: CBC, BMP 11/02/17 05:30 11/02/17 05:30 INR, PTT INR 3.43 (0.83-1.09) H 11/02/17 05:30 Problem List - Problems (1) Atrial fibrillation with rapid ventricular response Code(s): I48.91 - UNSPECIFIED ATRIAL FIBRILLATION (2) Leukocytosis Code(s): D72.829 - ELEVATED WHITE BLOOD CELL COUNT, UNSPECIFIED (3) UTI (urinary tract infection) Code(s): N39.0 - URINARY TRACT INFECTION, SITE NOT SPECIFIED Qualifiers: Urinary tract infection type: acute cystitis Hematuria presence: without hematuria Qualified Code(s): N30.00 - Acute cystitis without hematuria (4) Bladder cancer Code(s): C67.9 - MALIGNANT NEOPLASM OF BLADDER, UNSPECIFIED Assessment/Plan Current Medications Generic Name Dose Route Start Last Admin Trade Name Freq PRN Reason Stop Dose Admin Acetaminophen 650 mg 10/28/17 10:39 Tylenol - PO Q6H PRN PAIN LEVEL 1-6 Acetaminophen 325 mg 10/28/17 10:55 10/30/17 10:12 Tylenol - PO 325 mg Q6H PRN Administration PAIN 7-10 Amoxicillin 500 mg 10/30/17 22:00 11/02/17 05:51 Amoxicillin - PO 500 mg TID [facility] Administration Aspirin 81 mg 10/29/17 10:00 11/02/17 11:33 Ecotrin - PO 81 mg DAILY [facility] Administration Citalopram Hydrobromide 10 mg 10/29/17 10:00 11/02/17 11:33 Celexa - PO 10 mg DAILY [facility] Administration Clopidogrel Bisulfate 75 mg 10/28/17 10:45 11/02/17 11:33 Plavix - PO 75 mg DAILY [facility] Administration Docusate Sodium 300 mg 10/28/17 22:00 11/01/17 21:33 Colace - PO 300 mg HS [facility] Administration Insulin Aspart 1 vial 10/28/17 22:00 11/02/17 11:34 Novolog Vial Sliding Scale - SQ Not Given ACHS [facility] Protocol Lactobacillus Acidophilus 1 tab 10/30/17 15:00 11/02/17 11:33 Bacid - PO 1 tab DAILY [facility] Administration Lisinopril 2.5 mg 10/29/17 10:00 11/02/17 11:33 Prinivil PO 2.5 mg DAILY [facility] Administration Metoprolol Succinate 50 mg 10/28/17 21:00 11/02/17 11:33 Toprol Xl - PO 50 mg DAILY [facility] Administration Oxycodone HCl 5 mg 10/28/17 10:55 10/30/17 10:12 Roxicodone - PO 5 mg Q6H PRN Administration PAIN 7-10 Pantoprazole Sodium 40 mg 10/29/17 10:00 11/02/17 11:33 Protonix - PO 40 mg DAILY [facility] Administration Spironolactone 25 mg 10/29/17 10:00 11/02/17 11:34 Aldactone - PO 25 mg DAILY [facility] Administration Warfarin Sodium 5 mg 11/02/17 18:00 Coumadin - PO DAILY@1800 [facility] Impression 1. CKD 2. altered mental status 3. a-fib 4. DM 5. HTN 6. hx bladder cancer 7. leukocytosis 8. r/o uti Plan - renal function is stable - cont diuretics - cont yaima - monitor lytes - ileal conduit care - will follow PRN
[2017-11-02] MEDS: WARFARIN NA 5 MG TABLET (UD) PO SCH (17:41)
[2017-11-02] MEDS: DOCUSATE SODIUM 100 MG CAPSULE (FP) PO SCH (22:17)
[2017-11-03] MEDS ORDERED: ACETAMINOPHEN 325 MG TABLET (FP) PO PRN ×2 (00:44)
[2017-11-03] MEDS ORDERED: oxyCODONE HCL 5 MG TABLET PO PRN (00:44)
[2017-11-03] MEDS ORDERED: PT OWN MED DRAWER 7, Y5N ONE ×2 (06:10→09:19)
[2017-11-03] MEDS: AMOXICILLIN 500 MG CAPSULE (FP) PO SCH ×3 (06:25→22:10)
[2017-11-03] MEDS: INSULIN SLIDING SCALE (NOVOLOG) 1 VIAL SQ SCH ×4 (06:27→21:51)
[2017-11-03] MEDS: PANTOPRAZOLE 40 MG TABLET (FP) PO SCH (09:42)
[2017-11-03] MEDS: LISINOPRIL 5 MG TABLET (FP) PO SCH (09:42)
[2017-11-03] MEDS: ASPIRIN COATED 81 MG TABLET.EC PO SCH (09:42)
[2017-11-03] MEDS: CITALOPRAM HYDROBROMIDE 10 MG TABLET (FP) PO SCH (09:42)
[2017-11-03] MEDS: CLOPIDOGREL BISULFATE 75 MG TABLET (FP) PO SCH (09:42)
[2017-11-03] MEDS: LACTOBACILLUS ACIDOPHILUS 1 TABLET PO SCH (09:42)
[2017-11-03] MEDS: SPIRONOLACTONE 25 MG TABLET (FP) PO SCH (09:43)
--- NOTE | 2017-11-03 14:13 | PN ---
Progress Note, Physician Chief Complaint: Pt alert; denies feeling depressed. Poor appetite (says food has little taste for him, and that he has trouble chewing). History of Present Illness: This is a 67 YO man (b. [place]), with h/o metastatic bladder cancer (with possible mets to liver and lung, s/p suprapubic catheter placement), A-fib (on coumadin), severe systolic CHF (on metoprolol, lisinopril, spironolactone; and furosemide prn), renal dysfunction, who c/w rapid heart rate and generalized weakness. The patient himself is a somewhat poor historian and denies symptoms other than feeling generally weak/unwell. He denies f/c/n/v/d/c, abdominal pain , chest pain, SOB, n/t/w focally, dizziness, lightheadedness, black/bloody stool , or other symptoms. On discussion with the patient's emergency contact over the phone (who identifies herself as his caregiver but not as a family member) the patient lives alone, has been unable to care for himself, and has been increasingly generally weak today. She notes he has metastatic cancer and no family members living close by. He has no advance directive paperwork that the caregiver knows of. Cardiac Cath: 07/03/17 LAD proximal 40%, mid 40%, distal 30% LCx mid 30% RCA mid 80%, RPDA 40% LVEDP ~ 20 mmHg No LV gram performed in order to minimize contrast load Also limited angiography performed due to elevated creatinine No significant on pull back Moderate pulmonary hypertension as noted PASP up to 50 mmHg Mean RA pressure ~ 8-10 mmHg Ongoing medical problems Hypertension Diabetes mellitus Bladder cancer Nonobstructive CAD A Fib - Current Medication List Current Medications: Active Medications Acetaminophen (Tylenol -) 650 mg PO Q6H PRN PRN Reason: PAIN LEVEL 1-6 Acetaminophen (Tylenol -) 325 mg PO Q6H PRN PRN Reason: PAIN 7-10 Amoxicillin (Amoxicillin -) 500 mg PO TID [facility] Last Admin: 11/03/17 06:25 Dose: 500 mg Aspirin (Ecotrin -) 81 mg PO DAILY [facility] Last Admin: 11/03/17 09:42 Dose: 81 mg Citalopram Hydrobromide (Celexa -) 10 mg PO DAILY [facility] Last Admin: 11/03/17 09:42 Dose: 10 mg Clopidogrel Bisulfate (Plavix -) 75 mg PO DAILY [facility] Last Admin: 11/03/17 09:42 Dose: 75 mg Docusate Sodium (Colace -) 300 mg PO [facility] Insulin Aspart (Novolog Vial Sliding Scale -) 1 vial SQ ACHS [facility]; Protocol Last Admin: 11/03/17 11:28 Dose: Not Given Lactobacillus Acidophilus (Bacid -) 1 tab PO DAILY [facility] Last Admin: 11/03/17 09:42 Dose: 1 tab Lisinopril (Prinivil) 2.5 mg PO DAILY [facility] Last Admin: 11/03/17 09:42 Dose: 2.5 mg Metoprolol Succinate (Toprol Xl -) 50 mg PO DAILY [facility] Last Admin: 11/03/17 09:42 Dose: 50 mg Oxycodone HCl (Roxicodone -) 5 mg PO Q6H PRN PRN Reason: PAIN 7-10 Pantoprazole Sodium (Protonix -) 40 mg PO DAILY [facility] Last Admin: 11/03/17 09:42 Dose: 40 mg Spironolactone (Aldactone -) 25 mg PO DAILY [facility] Last Admin: 11/03/17 09:43 Dose: 25 mg Warfarin Sodium (Coumadin -) 5 mg PO DAILY@1800 [facility] Last Admin: 11/02/17 17:41 Dose: Not Given - Objective Vital Signs: Vital Signs Temperature 98.1 F 11/03/17 09:39 Pulse Rate 79 11/03/17 09:39 Respiratory Rate 18 11/03/17 09:39 Blood Pressure 119/58 L 11/03/17 09:39 O2 Sat by Pulse Oximetry (%) 100 11/02/17 21:00 Constitutional: Yes: Pallor Eyes: Yes: WNL HENT: Yes: WNL Neck: Yes: WNL Cardiovascular: Yes: S1 (varies in intensity), S2 Respiratory: Yes: Regular Gastrointestinal: Yes: Soft, Other (ileosomy conduit) ...Rectal Exam: Yes: Deferred Genitourinary: No: Anuria Musculoskeletal: Yes: Muscle Weakness Extremities: Yes: Cool Edema: No Peripheral Pulses WNL: Yes Integumentary: Yes: Other Wound/Incision: Yes: Open to air Psychiatric: Yes: Other (ani xiety) Labs: CBC, BMP 11/02/17 05:30 11/02/17 05:30 INR, PTT INR 3.43 (0.83-1.09) H 11/02/17 05:30 Problem List - Problems (1) Chronic systolic (congestive) heart failure Assessment/Plan: continue lisinopril, metoprolol, and spironolactone. Furosemide prn. F/u BUN/Cr, electrolytes, daily weight, Is and Os. Code(s): I50.22 - CHRONIC SYSTOLIC (CONGESTIVE) HEART FAILURE (2) Leukocytosis Assessment/Plan: on antibiotics (now changed to oral amoxicillin; cuiltures are negative; WBCs, while still elevated, are decreasing). Code(s): D72.829 - ELEVATED WHITE BLOOD CELL COUNT, UNSPECIFIED (3) Atrial fibrillation Assessment/Plan: On metoprolol; HR better-controlled. On warfarin: maintain INR 2-3. (F/u today's level; yesterday showed >3). f/u EKG in am. Code(s): I48.91 - UNSPECIFIED ATRIAL FIBRILLATION Qualifiers: Atrial fibrillation type: persistent Qualified Code(s): I48.1 - Persistent atrial fibrillation (4) Bladder cancer Assessment/Plan: Images show high likelihood of extensive metasteses to liver and lung. F/u with oncologist. Code(s): C67.9 - MALIGNANT NEOPLASM OF BLADDER, UNSPECIFIED (5) CAD (coronary artery disease) Assessment/Plan: ?hx coronary stent (80% lesion mid RCA on angiogram). Total cholesterol 107 mg/dL. On clopidogrel and ASA. Code(s): I25.10 - ATHSCL HEART DISEASE OF [place] CORONARY ARTERY W/O ANG PCTRS Qualifiers: Coronary Disease-Associated Artery/Lesion type: [place] artery [place] vs. transplanted heart: [place] heart Associated angina: without angina Qualified Code(s): I25.10 - Atherosclerotic heart disease of [place] coronary artery without angina pectoris (6) Anemia Code(s): D64.9 - ANEMIA, UNSPECIFIED (7) Anxiety Assessment/Plan: pt denies depression, but eating poorly, and not very communicative with staff. Code(s): F41.9 - ANXIETY DISORDER, UNSPECIFIED (8) Poor appetite Code(s): R63.0 - ANOREXIA
--- NOTE | 2017-11-03 14:28 | PN ---
Progress Note, Physician Chief Complaint: patient in bed no distress - Current Medication List Current Medications: Active Medications Acetaminophen (Tylenol -) 650 mg PO Q6H PRN PRN Reason: PAIN LEVEL 1-6 Acetaminophen (Tylenol -) 325 mg PO Q6H PRN PRN Reason: PAIN 7-10 Amoxicillin (Amoxicillin -) 500 mg PO TID [facility] Last Admin: 11/03/17 06:25 Dose: 500 mg Aspirin (Ecotrin -) 81 mg PO DAILY [facility] Last Admin: 11/03/17 09:42 Dose: 81 mg Citalopram Hydrobromide (Celexa -) 10 mg PO DAILY [facility] Last Admin: 11/03/17 09:42 Dose: 10 mg Clopidogrel Bisulfate (Plavix -) 75 mg PO DAILY [facility] Last Admin: 11/03/17 09:42 Dose: 75 mg Docusate Sodium (Colace -) 300 mg PO [facility] Insulin Aspart (Novolog Vial Sliding Scale -) 1 vial SQ [facility]; Protocol Last Admin: 11/03/17 11:28 Dose: Not Given Lactobacillus Acidophilus (Bacid -) 1 tab PO DAILY [facility] Last Admin: 11/03/17 09:42 Dose: 1 tab Lisinopril (Prinivil) 2.5 mg PO DAILY [facility] Last Admin: 11/03/17 09:42 Dose: 2.5 mg Metoprolol Succinate (Toprol Xl -) 50 mg PO DAILY [facility] Last Admin: 11/03/17 09:42 Dose: 50 mg Oxycodone HCl (Roxicodone -) 5 mg PO Q6H PRN PRN Reason: PAIN 7-10 Pantoprazole Sodium (Protonix -) 40 mg PO DAILY [facility] Last Admin: 11/03/17 09:42 Dose: 40 mg Spironolactone (Aldactone -) 25 mg PO DAILY [facility] Last Admin: 11/03/17 09:43 Dose: 25 mg Warfarin Sodium (Coumadin -) 5 mg PO DAILY@1800 [facility] Last Admin: 11/02/17 17:41 Dose: Not Given - Objective Vital Signs: Vital Signs Temperature 98.1 F 11/03/17 09:39 Pulse Rate 79 11/03/17 09:39 Respiratory Rate 18 11/03/17 09:39 Blood Pressure 119/58 L 11/03/17 09:39 O2 Sat by Pulse Oximetry (%) 100 11/02/17 21:00 Constitutional: Yes: Calm Cardiovascular: Yes: Regular Rate and Rhythm, S1, S2 Respiratory: Yes: CTA Bilaterally Gastrointestinal: Yes: Normal Bowel Sounds, Soft Genitourinary: Yes: [place] Present Edema: No Labs: CBC, BMP 11/02/17 05:30 11/02/17 05:30 INR, PTT INR 3.43 (0.83-1.09) H 11/02/17 05:30 Problem List - Problems (1) HEYDI (acute kidney injury) Assessment/Plan: renal function much improved Code(s): N17.9 - ACUTE KIDNEY FAILURE, UNSPECIFIED (2) Anemia Assessment/Plan: h/h stable iron saturation low will give venofer and start ferrous sulfate for low saturation Code(s): D64.9 - ANEMIA, UNSPECIFIED (3) Diabetes 1.5, managed as type 2 Assessment/Plan: bgm sliding scale Code(s): E10.9 - TYPE 1 DIABETES MELLITUS WITHOUT COMPLICATIONS (4) Atrial fibrillation Assessment/Plan: hold couamdin given supratherapuetic INR restart couamdin tmw Code(s): I48.91 - UNSPECIFIED ATRIAL FIBRILLATION Qualifiers: Atrial fibrillation type: persistent Qualified Code(s): I48.1 - Persistent atrial fibrillation (5) Chronic systolic (congestive) heart failure Assessment/Plan: lisinopril aldactone metoprolol Code(s): I50.22 - CHRONIC SYSTOLIC (CONGESTIVE) HEART FAILURE Assessment/Plan dc to [facility] in AM check iNR daily till INR btw 2-3
[2017-11-03] MEDS ORDERED: IRON SUCROSE INJECTION 100 MG in SODIUM CHLORIDE 95 ML IVPB ONE (14:45)
[2017-11-03 16:52] LABS: INR 2.35 (0.83-1.09); PROTHROMBIN TIME (PATIENT) 26.5 SEC (9.7-13.0)
--- NOTE | 2017-11-03 16:55 | PN ---
Progress Note, Physician History of Present Illness: Pt seen and examined at bedside. He is awake and appears comfortable. - Current Medication List Current Medications: Active Medications Acetaminophen (Tylenol -) 650 mg PO Q6H PRN PRN Reason: PAIN LEVEL 1-6 Acetaminophen (Tylenol -) 325 mg PO Q6H PRN PRN Reason: PAIN 7-10 Amoxicillin (Amoxicillin -) 500 mg PO TID [facility] Last Admin: 11/03/17 14:32 Dose: 500 mg Aspirin (Ecotrin -) 81 mg PO DAILY [facility] Last Admin: 11/03/17 09:42 Dose: 81 mg Citalopram Hydrobromide (Celexa -) 10 mg PO DAILY [facility] Last Admin: 11/03/17 09:42 Dose: 10 mg Clopidogrel Bisulfate (Plavix -) 75 mg PO DAILY [facility] Last Admin: 11/03/17 09:42 Dose: 75 mg Docusate Sodium (Colace -) 300 mg PO HS [facility] Insulin Aspart (Novolog Vial Sliding Scale -) 1 vial SQ ACHS [facility]; Protocol Last Admin: 11/03/17 16:38 Dose: Not Given Lactobacillus Acidophilus (Bacid -) 1 tab PO DAILY [facility] Last Admin: 11/03/17 09:42 Dose: 1 tab Lisinopril (Prinivil) 2.5 mg PO DAILY [facility] Last Admin: 11/03/17 09:42 Dose: 2.5 mg Metoprolol Succinate (Toprol Xl -) 50 mg PO DAILY [facility] Last Admin: 11/03/17 09:42 Dose: 50 mg Oxycodone HCl (Roxicodone -) 5 mg PO Q6H PRN PRN Reason: PAIN 7-10 Pantoprazole Sodium (Protonix -) 40 mg PO DAILY [facility] Last Admin: 11/03/17 09:42 Dose: 40 mg Spironolactone (Aldactone -) 25 mg PO DAILY [facility] Last Admin: 11/03/17 09:43 Dose: 25 mg Warfarin Sodium (Coumadin -) 5 mg PO DAILY@1800 [facility] Last Admin: 11/02/17 17:41 Dose: Not Given - Objective Vital Signs: Vital Signs Temperature 98.0 F 11/03/17 14:49 Pulse Rate 75 11/03/17 14:49 Respiratory Rate 18 11/03/17 14:49 Blood Pressure 115/62 11/03/17 14:49 O2 Sat by Pulse Oximetry (%) 98 11/03/17 09:39 Constitutional: Yes: Calm Eyes: Yes: Conjunctiva Clear HENT: Yes: Atraumatic Cardiovascular: Yes: S1, S2 Respiratory: Yes: CTA Bilaterally Gastrointestinal: Yes: Soft Genitourinary: Yes: Other (ileal conduit care) Edema: No Neurological: Yes: Oriented Labs: CBC, BMP 11/02/17 05:30 11/02/17 05:30 INR, PTT INR 3.43 (0.83-1.09) H 11/02/17 05:30 Problem List - Problems (1) Atrial fibrillation with rapid ventricular response Code(s): I48.91 - UNSPECIFIED ATRIAL FIBRILLATION (2) Leukocytosis Code(s): D72.829 - ELEVATED WHITE BLOOD CELL COUNT, UNSPECIFIED (3) UTI (urinary tract infection) Code(s): N39.0 - URINARY TRACT INFECTION, SITE NOT SPECIFIED Qualifiers: Urinary tract infection type: acute cystitis Hematuria presence: without hematuria Qualified Code(s): N30.00 - Acute cystitis without hematuria (4) Bladder cancer Code(s): C67.9 - MALIGNANT NEOPLASM OF BLADDER, UNSPECIFIED Assessment/Plan Current Medications Generic Name Dose Route Start Last Admin Trade Name Freq PRN Reason Stop Dose Admin Acetaminophen 650 mg 11/03/17 00:44 Tylenol - PO Q6H PRN PAIN LEVEL 1-6 Acetaminophen 325 mg 11/03/17 00:44 Tylenol - PO Q6H PRN PAIN 7-10 Amoxicillin 500 mg 11/03/17 06:00 11/03/17 14:32 Amoxicillin - PO 500 mg TID ANGELITA Administration Aspirin 81 mg 11/03/17 10:00 11/03/17 09:42 Ecotrin - PO 81 mg DAILY [facility] Administration Citalopram Hydrobromide 10 mg 11/03/17 10:00 11/03/17 09:42 Celexa - PO 10 mg DAILY [facility] Administration Clopidogrel Bisulfate 75 mg 11/03/17 10:00 11/03/17 09:42 Plavix - PO 75 mg DAILY [facility] Administration Docusate Sodium 300 mg 11/03/17 22:00 Colace - PO HS [facility] Insulin Aspart 1 vial 11/03/17 07:00 11/03/17 16:38 Novolog Vial Sliding Scale - SQ Not Given ACHS [facility] Protocol Lactobacillus Acidophilus 1 tab 11/03/17 10:00 11/03/17 09:42 Bacid - PO 1 tab DAILY [facility] Administration Lisinopril 2.5 mg 11/03/17 10:00 11/03/17 09:42 Prinivil PO 2.5 mg DAILY [facility] Administration Metoprolol Succinate 50 mg 11/03/17 10:00 11/03/17 09:42 Toprol Xl - PO 50 mg DAILY [facility] Administration Oxycodone HCl 5 mg 11/03/17 00:44 Roxicodone - PO Q6H PRN PAIN 7-10 Pantoprazole Sodium 40 mg 11/03/17 10:00 11/03/17 09:42 Protonix - PO 40 mg DAILY [facility] Administration Spironolactone 25 mg 11/03/17 10:00 11/03/17 09:43 Aldactone - PO 25 mg DAILY [facility] Administration Warfarin Sodium 5 mg 11/02/17 18:00 11/02/17 17:41 Coumadin - PO Not Given DAILY@1800 [facility] Impression 1. CKD 2. altered mental status 3. a-fib 4. DM 5. HTN 6. hx bladder cancer 7. leukocytosis 8. r/o uti Plan - check bmp - cont diuretics - cont yaima - monitor lytes - ileal conduit care - will follow PRN
[2017-11-03] MEDS: WARFARIN NA 5 MG TABLET (UD) PO SCH (18:18)
[2017-11-03] MEDS ORDERED: DOCUSATE SODIUM 100 MG CAPSULE (FP) PO SCH (22:00)
[2017-11-04] MEDS: INSULIN SLIDING SCALE (NOVOLOG) 1 VIAL SQ SCH ×2 (06:12→11:54)
[2017-11-04] MEDS: AMOXICILLIN 500 MG CAPSULE (FP) PO SCH ×2 (06:37→13:20)
[2017-11-04 07:23] LABS: ANION GAP 12 MMOL/L (8-16); BLOOD UREA NITROGEN 37 mg/dL (7-18); CALCIUM 10.1 mg/dL (8.5-10.1); CHLORIDE 104 mmol/L (98-107); CO2 18 mmol/L (21-32); GLUCOSE,RANDOM 90 mg/dL (74-106); SODIUM 134 mmol/L (136-145)
[2017-11-04 07:27] LABS: INR 2.61 (0.83-1.09); PROTHROMBIN TIME (PATIENT) 29.5 SEC (9.7-13.0)
--- NOTE | 2017-11-04 10:01 | DS ---
Physical Examination Vital Signs: Vital Signs Temperature 97.8 F 11/04/17 05:15 Pulse Rate 81 11/04/17 05:15 Respiratory Rate 18 11/04/17 05:15 Blood Pressure 105/58 L 11/04/17 05:15 O2 Sat by Pulse Oximetry (%) 100 11/03/17 21:00 Labs: CBC, BMP 11/02/17 05:30 11/04/17 06:00 Discharge Summary Reason For Visit: URINARY TRACT INFECTION, ATRIAL FIBRILLATION WITH Current Active Problems HEYDI (acute kidney injury) (Acute) Anemia (Acute) Anxiety (Acute) Atrial fibrillation with rapid ventricular response (Acute) Chronic systolic (congestive) heart failure (Acute) Diabetes 1.5, managed as type 2 (Acute) Leukocytosis (Acute) Poor appetite (Acute) UTI (urinary tract infection) (Acute) Condition: Stable - Instructions Diet, Activity, Other Instructions: daily inr till INR is btw 2-3 and then check INR -- monitor bgm and if elevated restart levemir and novolog Referrals: Iris Morales MD [Primary Care Provider] - Mitch Alvarado MD [Staff Physician] - Nati Villar MD [Staff Physician] - Disposition: SNF FACILITY - Home Medications Comprehensive Discharge Medication List: Ambulatory Orders Aspirin [Aspirin EC] 81 mg PO DAILY 08/25/17 Citalopram Hydrobromide [Citalopram HBr] 10 mg PO DAILY 08/25/17 Clopidogrel Bisulfate [Plavix] 75 mg PO DAILY 08/25/17 Oxycodone HCl/Acetaminophen [Endocet 5-325 Tablet] 1 each PO Q6H PRN 08/25/17 Pantoprazole Sodium [Protonix] 40 mg PO DAILY 08/25/17 Acetaminophen [Tylenol .Regular Strength -] 650 mg PO Q6H PRN #120 tablet MDD 6 09/03/17 Docusate Sodium [Colace -] 300 mg PO HS #90 capsule 09/03/17 Lisinopril [Prinivil] 2.5 mg PO DAILY #30 tablet 09/03/17 Metoprolol Succinate [Toprol XL -] 50 mg PO DAILY #30 tab.sr.24h 09/03/17 Spironolactone [Aldactone -] 25 mg PO DAILY #30 tablet 09/03/17 Warfarin Sodium [Coumadin] 4 mg PO HS #20 tablet MDD 1 11/03/17
[2017-11-04 10:08] VITALS: BP 110/61
[2017-11-04] MEDS: LISINOPRIL 5 MG TABLET (FP) PO SCH (10:09)
[2017-11-04] MEDS: LACTOBACILLUS ACIDOPHILUS 1 TABLET PO SCH (10:09)
[2017-11-04] MEDS: PANTOPRAZOLE 40 MG TABLET (FP) PO SCH (10:10)
[2017-11-04] MEDS: ASPIRIN COATED 81 MG TABLET.EC PO SCH (10:10)
[2017-11-04] MEDS: CLOPIDOGREL BISULFATE 75 MG TABLET (FP) PO SCH (10:10)
[2017-11-04] MEDS: SPIRONOLACTONE 25 MG TABLET (FP) PO SCH (10:11)
[2017-11-04] MEDS: CITALOPRAM HYDROBROMIDE 10 MG TABLET (FP) PO SCH (10:18)
--- NOTE | 2017-11-04 11:30 | PN ---
Progress Note, Physician History of Present Illness: This is a 67 YOM with h/o metastatic bladder cancer (with mets to liver and lung , s/p suprapubic catheter placement), and A-fib (on coumadin), CHF (on furosemide) who p/w rapid heart rate and generalized weakness. The patient himself is a somewhat poor historian and denies symptoms other than feeling generally weak/unwell. He denies f/c/n/v/d/c, abdominal pain, chest pain, SOB, n /t/w focally, dizziness, lightheadedness, black/bloody stool, or other symptoms. On discussion with the patient's emergency contact over the phone ( who identifies herself as his caregiver but not as a family member) the patient lives alone, has been unable to care for himself, and has been increasingly generally weak today. She notes he has the metastatic cancer and no family members living close by. He has no advance directive paperwork that the caregiver knows of. Cardiac Cath: 07/03/17 LAD proximal 40%, mid 40%, distal 30% LCx mid 30% RCA mid 80%, RPDA 40% LVEDP ~ 20 mmHg No LV gram performed in order to minimize contrast load Also limited angiography performed due to elevated creatinine No significant on pull back Moderate pulmonary hypertension as noted PASP up to 50 mmHg Mean RA pressure ~ 8-10 mmHg Ongoing medical problems Hypertension Diabetes mellitus Bladder cancer Nonobstructive CAD A Fib - Current Medication List Current Medications: Active Medications Acetaminophen (Tylenol -) 650 mg PO Q6H PRN PRN Reason: PAIN LEVEL 1-6 Acetaminophen (Tylenol -) 325 mg PO Q6H PRN PRN Reason: PAIN 7-10 Amoxicillin (Amoxicillin -) 500 mg PO TID [facility] Last Admin: 11/04/17 06:37 Dose: 500 mg Aspirin (Ecotrin -) 81 mg PO DAILY [facility] Last Admin: 11/04/17 10:10 Dose: 81 mg Citalopram Hydrobromide (Celexa -) 10 mg PO DAILY [facility] Last Admin: 11/04/17 10:18 Dose: 10 mg Clopidogrel Bisulfate (Plavix -) 75 mg PO DAILY [facility] Last Admin: 11/04/17 10:10 Dose: 75 mg Docusate Sodium (Colace -) 300 mg PO [facility] Last Admin: 11/03/17 22:09 Dose: 300 mg Insulin Aspart (Novolog Vial Sliding Scale -) 1 vial SQ ACHS [facility]; Protocol Last Admin: 11/04/17 06:12 Dose: Not Given Lactobacillus Acidophilus (Bacid -) 1 tab PO DAILY [facility] Last Admin: 11/04/17 10:09 Dose: 1 tab Lisinopril (Prinivil) 2.5 mg PO DAILY [facility] Last Admin: 11/04/17 10:09 Dose: 2.5 mg Metoprolol Succinate (Toprol Xl -) 50 mg PO DAILY [facility] Last Admin: 11/04/17 10:10 Dose: 50 mg Oxycodone HCl (Roxicodone -) 5 mg PO Q6H PRN PRN Reason: PAIN 7-10 Pantoprazole Sodium (Protonix -) 40 mg PO DAILY [facility] Last Admin: 11/04/17 10:10 Dose: 40 mg Spironolactone (Aldactone -) 25 mg PO DAILY [facility] Last Admin: 11/04/17 10:11 Dose: 25 mg Warfarin Sodium (Coumadin -) 5 mg PO DAILY@1800 [facility] Last Admin: 11/03/17 18:18 Dose: 5 mg - Objective Vital Signs: Vital Signs Temperature 98.3 F 11/04/17 10:00 Pulse Rate 88 11/04/17 10:00 Respiratory Rate 18 11/04/17 10:00 Blood Pressure 110/61 11/04/17 10:00 O2 Sat by Pulse Oximetry (%) 100 11/03/17 21:00 Eyes: Yes: WNL, Conjunctiva Clear, EOM Intact HENT: Yes: WNL, Atraumatic, Normocephalic Neck: Yes: WNL, Supple, Trachea Midline Cardiovascular: Yes: WNL, Regular Rate and Rhythm Respiratory: Yes: WNL, Regular, CTA Bilaterally Gastrointestinal: Yes: WNL, Normal Bowel Sounds Genitourinary: Yes: WNL Musculoskeletal: Yes: WNL Extremities: Yes: WNL Edema: No Integumentary: Yes: WNL Neurological: Yes: WNL, Alert, Oriented ...Motor Strength: WNL Psychiatric: Yes: WNL Labs: CBC, BMP 11/02/17 05:30 11/04/17 06:00 INR, PTT INR 2.61 (0.83-1.09) H 11/04/17 06:00 Problem List - Problems (1) Atrial fibrillation with rapid ventricular response Code(s): I48.91 - UNSPECIFIED ATRIAL FIBRILLATION (2) UTI (urinary tract infection) Code(s): N39.0 - URINARY TRACT INFECTION, SITE NOT SPECIFIED Qualifiers: Urinary tract infection type: acute cystitis Hematuria presence: without hematuria Qualified Code(s): N30.00 - Acute cystitis without hematuria (3) Atrial fibrillation Code(s): I48.91 - UNSPECIFIED ATRIAL FIBRILLATION Qualifiers: Atrial fibrillation type: persistent Qualified Code(s): I48.1 - Persistent atrial fibrillation (4) Bladder cancer Code(s): C67.9 - MALIGNANT NEOPLASM OF BLADDER, UNSPECIFIED (5) 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 (6) CAD (coronary artery disease) Code(s): I25.10 - ATHSCL HEART DISEASE OF [place] CORONARY ARTERY W/O ANG PCTRS Qualifiers: Coronary Disease-Associated Artery/Lesion type: [place] artery [place] vs. transplanted heart: [place] heart Associated angina: without angina Qualified Code(s): I25.10 - Atherosclerotic heart disease of [place] coronary artery without angina pectoris (7) CHF (congestive heart failure) Code(s): I50.9 - HEART FAILURE, UNSPECIFIED (8) 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 Code(s): C67.9 - MALIGNANT NEOPLASM OF BLADDER, UNSPECIFIED; C78.7 - SECONDARY MALIG NEOPLASM OF LIVER AND INTRAHEPATIC BILE DUCT (9) Cardiomyopathy Code(s): I42.9 - CARDIOMYOPATHY, UNSPECIFIED Qualifiers: Cardiomyopathy type: ischemic Qualified Code(s): I25.5 - Ischemic cardiomyopathy (10) Chronic anticoagulation Code(s): Z79.01 - LONGTERM (CURRENT) USE OF ANTICOAGULANTS (11) Confusion Code(s): R41.0 - DISORIENTATION, UNSPECIFIED (12) Constipation Code(s): K59.00 - CONSTIPATION, UNSPECIFIED (13) Diabetes Code(s): E11.9 - TYPE 2 DIABETES MELLITUS WITHOUT COMPLICATIONS (14) Hematuria Code(s): R31.9 - HEMATURIA, UNSPECIFIED (15) Hyperlipidemia Code(s): E78.5 - HYPERLIPIDEMIA, UNSPECIFIED Qualifiers: Hyperlipidemia type: pure hypercholesterolemia Qualified Code(s): E78.00 - Pure hypercholesterolemia, unspecified; E78.0 - Pure hypercholesterolemia (16) Hypertension Code(s): I10 - ESSENTIAL (PRIMARY) HYPERTENSION Qualifiers: Hypertension type: essential hypertension Qualified Code(s): I10 - Essential (primary) hypertension (17) Metastasis Code(s): C79.9 - SECONDARY MALIGNANT NEOPLASM OF UNSPECIFIED SITE (18) Obesity Code(s): E66.9 - OBESITY, UNSPECIFIED (19) Rectal bleed Code(s): K62.5 - HEMORRHAGE OF ANUS AND RECTUM (20) Renal dysfunction Code(s): N28.9 - DISORDER OF KIDNEY AND URETER, UNSPECIFIED (21) Renal insufficiency Code(s): N28.9 - DISORDER OF KIDNEY AND URETER, UNSPECIFIED (22) Renal insufficiency, mild Code(s): N28.9 - DISORDER OF KIDNEY AND URETER, UNSPECIFIED (23) S/P coronary artery stent placement Code(s): Z95.5 - PRESENCE OF CORONARY ANGIOPLASTY IMPLANT AND GRAFT (24) SOB (shortness of breath) Code(s): R06.02 - SHORTNESS OF BREATH (25) Sepsis due to urinary tract infection Code(s): A41.9 - SEPSIS, UNSPECIFIED ORGANISM; N39.0 - URINARY TRACT INFECTION, SITE NOT SPECIFIED (26) Supratherapeutic INR Code(s): R79.1 - ABNORMAL COAGULATION PROFILE Assessment/Plan - Problems (1) Chronic systolic (congestive) heart failure Assessment/Plan: continue lisinopril, metoprolol, and spironolactone. Furosemide prn. F/u BUN/Cr, electrolytes, daily weight, Is and Os. Code(s): I50.22 - CHRONIC SYSTOLIC (CONGESTIVE) HEART FAILURE (2) Leukocytosis Assessment/Plan: on antibiotics (now changed to oral amoxicillin; cuiltures are negative; WBCs, while still elevated, are decreasing). Code(s): D72.829 - ELEVATED WHITE BLOOD CELL COUNT, UNSPECIFIED (3) Atrial fibrillation Assessment/Plan: On metoprolol; HR better-controlled. On warfarin: maintain INR 2-3. (F/u today's level; yesterday showed >3). f/u EKG in am. Code(s): I48.91 - UNSPECIFIED ATRIAL FIBRILLATION Qualifiers: Atrial fibrillation type: persistent Qualified Code(s): I48.1 - Persistent atrial fibrillation (4) Bladder cancer Assessment/Plan: Images show high likelihood of extensive metasteses to liver and lung. F/u with oncologist. Code(s): C67.9 - MALIGNANT NEOPLASM OF BLADDER, UNSPECIFIED (5) CAD (coronary artery disease) Assessment/Plan: ?hx coronary stent (80% lesion mid RCA on angiogram). Total cholesterol 107 mg/dL. On clopidogrel and ASA. Code(s): I25.10 - ATHSCL HEART DISEASE OF [place] CORONARY ARTERY W/O ANG PCTRS Qualifiers: Coronary Disease-Associated Artery/Lesion type: [place] artery [place] vs. transplanted heart: [place] heart Associated angina: without angina Qualified Code(s): I25.10 - Atherosclerotic heart disease of [place] coronary artery without angina pectoris (6) Anemia Code(s): D64.9 - ANEMIA, UNSPECIFIED (7) Anxiety Assessment/Plan: pt denies depression, but eating poorly, and not very communicative with staff. Code(s): F41.9 - ANXIETY DISORDER, UNSPECIFIED (8) Poor appetite Code(s): R63.0 - ANOREXIA
--- NOTE | 2017-11-04 11:40 | EKG ---
Test Reason : Blood Pressure : / mmHG Vent. Rate : 089 BPM Atrial Rate : 089 BPM P-R Int : 146 ms QRS Dur : 086 ms QT Int : 368 ms P-R-T Axes : 068 -09 041 degrees QTc Int : 447 ms NORMAL SINUS RHYTHM LOW VOLTAGE QRS BORDERLINE ECG WHEN COMPARED WITH ECG OF 27-OCT-2017 23:57, SINUS RHYTHM HAS REPLACED ATRIAL FIBRILLATION VENT. RATE HAS DECREASED BY 56 BPM NONSPECIFIC T WAVE ABNORMALITY, IMPROVED IN INFERIOR LEADS NONSPECIFIC T WAVE ABNORMALITY NO LONGER EVIDENT IN ANTEROLATERAL LEADS Confirmed by LIS CHAMBERS, ROMULO ([id number]) on 11/04/2017 11:40:19 AM Referred By: SHAINA ALCOCER Confirmed By:ROMULO HAYS MD
[2017-11-04 15:18] VITALS: PULSE 78; TEMP 97.7
--- NOTE | 2017-11-04 16:33 | PN ---
Progress Note, Physician History of Present Illness: Pt seen and examined earlier today. He says he feels well. - Objective Vital Signs: Vital Signs Temperature 97.7 F 11/04/17 15:17 Pulse Rate 78 11/04/17 15:17 Respiratory Rate 18 11/04/17 15:17 Blood Pressure 110/61 11/04/17 10:00 O2 Sat by Pulse Oximetry (%) 98 11/04/17 09:00 Constitutional: Yes: Calm Eyes: Yes: Conjunctiva Clear HENT: Yes: Atraumatic Cardiovascular: Yes: S1, S2 Respiratory: Yes: CTA Bilaterally Gastrointestinal: Yes: Soft Genitourinary: Yes: Other (ileal conduit) Edema: No Neurological: Yes: Oriented Psychiatric: Yes: Oriented Labs: CBC, BMP 11/02/17 05:30 11/04/17 06:00 INR, PTT INR 2.61 (0.83-1.09) H 11/04/17 06:00 Problem List - Problems (1) Atrial fibrillation with rapid ventricular response Code(s): I48.91 - UNSPECIFIED ATRIAL FIBRILLATION (2) Leukocytosis Code(s): D72.829 - ELEVATED [place]ITE BLOOD CELL COUNT, UNSPECIFIED (3) UTI (urinary tract infection) Code(s): N39.0 - URINARY TRACT INFECTION, SITE NOT SPECIFIED Qualifiers: Urinary tract infection type: acute cystitis Hematuria presence: without hematuria Qualified Code(s): N30.00 - Acute cystitis without hematuria (4) Bladder cancer Code(s): C67.9 - MALIGNANT NEOPLASM OF BLADDER, UNSPECIFIED Assessment/Plan Impression 1. CKD 2. altered mental status 3. a-fib 4. DM 5. HTN 6. hx bladder cancer 7. leukocytosis 8. r/o uti Plan - labs reviewed - can see in iffice - avoid nsaids - cont yaima - monitor lytes - ileal conduit care - will follow PRN
== END 2017-11-04 15:33 | DRG 690 ==
LOC: JER 23:15 → JERBED 10-28 09:20 → J4W 10-28 20:11 → J7W 11-03 00:11
PROVIDERS: ADMIT Family Medicine; ATTEND Family Medicine
DX: N39.0 Urinary tract infection, site not specified (principal); I48.1 Persistent atrial fibrillation; I50.22 Chronic systolic (congestive) heart failure; C78.7 Secondary malignant neoplasm of liver and intrahepatic bile duct; C78.00 Secondary malignant neoplasm of unspecified lung; I13.0 Hypertensive heart and chronic kidney disease with heart failure and stage 1 through stage 4 chronic kidney disease, or unspecified chronic kidney disease; I42.9 Cardiomyopathy, unspecified; D64.9 Anemia, unspecified; D72.829 Elevated white blood cell count, unspecified; C67.9 Malignant neoplasm of bladder, unspecified; R41.82 Altered mental status, unspecified; E11.22 Type 2 diabetes mellitus with diabetic chronic kidney disease; N18.9 Chronic kidney disease, unspecified; I27.20 Pulmonary hypertension, unspecified; I25.10 Atherosclerotic heart disease of native coronary artery without angina pectoris; E78.5 Hyperlipidemia, unspecified; R79.1 Abnormal coagulation profile; F41.9 Anxiety disorder, unspecified; R63.0 Anorexia; E11.40 Type 2 diabetes mellitus with diabetic neuropathy, unspecified; Z98.61 Coronary angioplasty status; R31.9 Hematuria, unspecified; E11.65 Type 2 diabetes mellitus with hyperglycemia
CPT/HCPCS: 36415; 70450-TC; 71045-TC-FY; 71260-TC; 76775-TC; 80048; 80053; 81003; 81015; 82550; 82553; 82607; 82728; 82746; 82803; 82962; 83540; 83550; 83605; 83880; 84439; 84443; 84484; 85025; 85610; 85730; 86850; 86900; 86901; 87040; 87086; 87186; 87324; 87449; 87493; 90688; 93005; 93010; 93306-TC; 97116-GP; 97162-GP; 99285-25; G0008; J1756; J7030

== ENCOUNTER 2017-11-05 08:33 | Inpatient (IN) | payer MEDICARE, OTHER ==
[2017-11-05] MEDS ORDERED: SODIUM CHLORIDE 0.9% 500 ML INFUS.BAG IV ONE ×3 (08:38→15:45)
--- NOTE | 2017-11-05 08:49 | PDOC ---
Attending Attestation - HPI HPI: 11/05/17 10:13 The patient is a 67 year old male, from [facility], with a significant PMH of atrial fibrillation (on Warfarin, Plavix and baby aspirin), congestive heart failure, coronary artery disease, hypertension, GERD and depression who presents to the emergency department via EMS with mid back pain. As per EMS the patients systolic was noted to be in the 60s and they placed a PIV and started a liter of NS prior to arrival in the emergency department. The patient denies chest pain, shortness of breath, headache and dizziness. Denies fever, chills, nausea, vomit, diarrhea and constipation. Denies dysuria, frequency, urgency and hematuria. Allergies: NKA PCP: Dr Betancur - Medical Decision Making 11/05/17 10:14 Patient is a 67 year old male, from [facility], with history of atrial fibrillation (on Warfarin, Plavix and baby aspirin), congestive heart failure, coronary artery disease, hypertension, GERD and depression, presents to the emergency department via EMS with mid back pain. Plan: CXR, Labs/ Blood work, Meds, Abdomen/ Chest CT, EKG. <Artie Taylor - Last Filed: 11/05/17 10:17> - Resident Resident Name: Edyta Wang - ED Attending Attestation I have performed the following: I have examined & evaluated the patient, The case was reviewed & discussed with the resident, I agree w/resident's findings & plan, Exceptions are as noted - HPI HPI: 11/05/17 14:15 67 years old A. fib on Plavix congestive heart failure metastatic cancer with metastases to lung bone presents to the emergency department with vital signs concerning for sepsis Sepsis workup initiated Patient with suprapubic catheter. Source of infection appears to be urine. Despite 30 mL/kg fluid resuscitation patient has remained hypotensive Broad-spectrum antibiotics started. Central line placed. Timeout and consent performed prior to procedure. Goals of care addressed with family daughter who is health care proxy states that at this time patient is full code although the acknowledge the poor prognosis of the patient's situation and the necessity to reassess goals of care with family Central line placed we'll start vasopressors and admit to ICU We'll consult urology - Physicial Exam PE: 11/05/17 14:17 Agree with residents PE <Troy Gregory - Last Filed: 11/05/17 17:09> Heart Score/ECG Review - ECG Impressions Comment:: 11/05/17 17:09 EKG performed at 8:52 AM demonstrates atrial fibrillation no ST elevations subtle ST depressions laterally <Troy Gregory - Last Filed: 11/05/17 17:09> Attestations - Attestations 11/05/17 10:17 Documentation prepared by Artie Taylor, acting as medical practice administrator for Troy Gregory MD. <Artie Taylor - Last Filed: 11/05/17 10:17>
--- NOTE | 2017-11-05 09:04 | PDOC ---
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 vertebrae), s/p ileal conduit, A-fib (on warfarin, Plavix, and baby ASA), CHF, CAD, HTN, GERD, and depression who was BIBEMS from [facility] (where he was recently admitted) who was found by care facility staff this morning half-off his bed and complaining of mid-back pain. They measured his BP to be 86/60, HR 77, RR 18, T 97.8. EMS reports that his pressures were actually in the 60s systolic during their care, and they placed a PIV and started a liter of NS. The patient himself has no complaints other than back pain (denies malaise, body aches, fever, chills, nausea, vomiting, diarrhea, dizziness, n/t/w focally , headache, chest pain, SOB, abdominal pain, etc. PCP from [facility] is Dr. Betancur. Past History - Past Medical History Allergies/Adverse Reactions: Allergies Allergy/AdvReac Type Severity Reaction Status Date / Time No Known Allergies Allergy Verified 10/27/17 23:31 Home Medications: Ambulatory Orders Aspirin [Aspirin EC] 81 mg PO DAILY 08/25/17 Citalopram Hydrobromide [Citalopram HBr] 10 mg PO DAILY 08/25/17 Clopidogrel Bisulfate [Plavix] 75 mg PO DAILY 08/25/17 Oxycodone HCl/Acetaminophen [Endocet 5-325 Tablet] 1 each PO Q6H PRN 08/25/17 Pantoprazole Sodium [Protonix] 40 mg PO DAILY 08/25/17 Acetaminophen [Tylenol .Regular Strength -] 650 mg PO Q6H PRN #120 tablet MDD 6 09/03/17 Docusate Sodium [Colace -] 300 mg PO HS #90 capsule 09/03/17 Lisinopril [Prinivil] 2.5 mg PO DAILY #30 tablet 09/03/17 Metoprolol Succinate [Toprol XL -] 50 mg PO DAILY #30 tab.sr.24h 09/03/17 Spironolactone [Aldactone -] 25 mg PO DAILY #30 tablet 09/03/17 Warfarin Sodium [Coumadin] 4 mg PO HS #20 tablet MDD 1 11/03/17 Cancer: Yes (Bladder) COPD: No Diabetes: Yes Disorders: Yes (BLADDER CANCER) HTN: Yes Hypercholesterolemia: Yes - Surgical History Abdominal Surgery: Yes (BLADDER) Neurologic Surgery: Yes - Immunization History Immunization Up to Date: No - Suicide/Smoking/Psychosocial Hx Smoking Status: No Smoking History: Never smoked Have you smoked in the past 12 months: No Number of Cigarettes Smoked Daily: 0 Hx Alcohol Use: No Drug/Substance Use Hx: No Substance Use Type: None Hx Substance Use Treatment: No Review of Systems - Review of Systems Able to Perform ROS?: Yes Constitutional: No: Chills, Fever, Unexplained wgt Loss HEENTM: No: Nose Congestion, Throat Pain Respiratory: No: Cough, Shortness of Breath Cardiac (ROS): No: Chest Pain, Palpitations ABD/GI: No: Constipated, Diarrhea, Nausea, Vomiting : No: Burning, Dysuria Musculoskeletal: Yes: Back Pain. No: Neck Pain Integumentary: No: Bruising, Rash Neurological: No: Headache, Numbness, Tingling, Weakness, Dizziness Endocrine: No: Unexplained Weight Gain, Unexplained Weight Loss *Physical Exam - Vital Signs Initial Vital Signs Temp Pulse Resp BP Pulse Ox 96.7 F L 140 H 20 80/42 L 96 11/05/17 08:35 11/05/17 08:35 11/05/17 08:35 11/05/17 08:35 11/05/17 08:35 GENERAL: pale and a bit unwell-appearing, generally well nourished appearing, A/ O to self, date, and type of building only, no acute distress, speaking in full sentences, answers simple questions appropriately, Azeri-speaking only HEENT: PERRLA, EOMI, dry mucous membranes, no posterior pharyngeal erythema, no tonsillar swelling or exudates, no cervical lymphadenopathy NECK: No midline ttp, no spinal stepoff or deformity, full ROM, supple CARDIOVASCULAR: Irregularly irregular and tachycardic, normal S1S2, MGR, radial and DP pulses a thready, capillary refill 4 seconds, extremities lukewarm Chest wall: Normal appearance, no rash, no bruising, no costal stepoff or deformity, nontender to compression LUNGS/RESPIRATORY: No respiratory distress, normal and symmetric chest movements during respirations, lungs CTA bilaterally, equal breath sounds, no cyanosis, no nail clubbing GI/ABDOMEN: Normal symmetric appearance, normoactive bowel sounds, soft, mild RUQ tenderness to palpation, no midline pulsatile masses, no palpated organomegaly : R>L CVA tenderness, ileal conduit in place draining urine, normal external genitalia appearance, no lesions BACK: Moderate midline ttp to lower thoracic and upper lumbar spine without stepoff or deformity EXTREMITIES: distal pulses 1+, no LE edema SKIN: Warm and dry, pale, no jaundice, no bruising, no rash, no skin breakdown, no cuts, no lesions NEUROLOGICAL: GCS 15, CN II-XII grossly intact, moving all extremities, 4/5 strength proximally and distally and equal all 4 extremities, no facial droop, no decreased sensation Procedures - Central Line Central Line Lumen: triple Central Line Position: internal jugular (R) Anesthesia: 1% Lidocaine Amount of anesthesia (ccs): 4 Complications: none Post Central Line Insertion: sutured, good blood return, position confirmed w/ CXR Progress: Patient tolerated well - Bedside Ultrasound Bedside Ultrasound: Gallbladder Remarks: Study: GB/RUQ Indication: RUQ pain Findings: Difficult study, no pericholecystic fluid, wall thickening, sludge/ stones, distention. Conclusion: Very limited but no gross e/o cholecystitis. Heart Score/ECG Review #1 11/05/17 08:53 A-fib with RVR, rate 144, low voltages in limb leads, normal axis, QKr=046, no ischemic ST-T changes ED Treatment Course - LABORATORY CBC & Chemistry Diagram: 11/05/17 08:55 11/05/17 16:45 - RADIOLOGY Radiology Studies Ordered: Category Date Time Status CHEST X-RAY PORTABLE* [RAD] Stat Radiology 11/05/17 08:36 Ordered Medical Decision Making - Critical Care Time Total Critical Care Time (minutes): 45 Critical Care Statement: The care of this patient involved high complexity decision making to prevent further life threatening deterioration of the patient 's condition and/or to evaluate & treat vital organ system(s) failure or risk of failure. - Medical Decision Making 11/05/17 09:11 Elderly Pt p/w hypotension, back pain, rapid palpitations, found in strange position on bed by [facility] staff. Initial Vital Signs Temp Pulse Resp BP Pulse Ox 96.7 F L 140 H 20 80/42 L 96 11/05/17 08:35 11/05/17 08:35 11/05/17 08:35 11/05/17 08:35 11/05/17 08:35 Exam: As noted in Physical Exam section. DDX IBNLT: sepsis (c/f severe versus shock, UTI, PNA), tachyarrhythmia (e.g. SVT , re-entrant tachycardia, WPW, Brugada, long QT, AF/AFL w/ RVR, MAT, ventricular dysrhythmia), ischemia (ACS), structural heart condition (MVP, mitral stenosis, atrial enlargement, HOCM), anxiety/panic, hypoxia, anemia ( e.g. hemorrhage from heavy menstruation, ruptured ectopic, etc), PE, PTX, bronchitis/PNA, sepsis/shock, tamponade, metabolic (e.g. DKA, hypoglycemia), thyroid condition, catecholamine surge (e.g. pheochromocytoma), anxiety/panic disorder, medication effect, substance use, etc. W/U ordered: Monitor EKG CXR CBCD CMP Cardiac Panel UA UCx TX ordered: IV O2 EMS has administered 1 liter fluids as running when patient arrives. The patient's 30 cc/kg bolus requirement is 2410cc. I have placed orders for an additional 1500 cc NS. The patient has no clinical e/o volume overload. EKG: Reviewed; results as noted in ECG Review section. 11/05/17 09:57 Pressure at this time is 99/65, HR is 108. TX ordered: Zosyn, vancomycin, Ofirmev. CXR: multiple lung nodules not significantly changed from prior, nothing acute. Vital Signs Temperature 96.4 F L 11/05/17 08:36 Pulse Rate 120 H 11/05/17 10:26 Respiratory Rate 16 11/05/17 10:26 Blood Pressure 106/59 L 11/05/17 10:26 O2 Sat by Pulse Oximetry (%) 98 11/05/17 10:26 11/05/17 10:50 BP 93/60 LUE, 79/61 RUE. Additional 1 liter beyond 30 cc/kg bolus has already been ordered. Laboratory Tests 11/05/17 11/05/17 11/05/17 08:43 08:45 08:55 WBC 16.0 H RBC 4.48 Hgb 12.0 Hct 37.4 MCV 83.4 MCH 26.7 MCHC 32.0 RDW 16.0 H Plt Count 467 H D MPV 9.5 Absolute Neuts (auto) 14.4 H Neutrophils % 90.0 H Lymphocytes % 2.7 L D Monocytes % 6.4 Eosinophils % 0.1 D Basophils % 0.8 Nucleated RBC % 0 PT with INR INR PTT (Actin FS) VBG pH POC VBG pCO2 POC VBG pO2 Mixed VBG HCO3 Sodium Potassium Chloride Carbon Dioxide Anion Gap BUN Creatinine Creat Clearance w eGFR POC Glucometer [phone] Random Glucose Lactic Acid Calcium Total Bilirubin AST ALT Alkaline Phosphatase Creatine Kinase CK-MB (CK-2) Troponin I Total Protein Albumin Urine Color Urine Appearance Urine pH Ur Specific [place] Urine Protein Urine Glucose (UA) Urine Ketones Urine Blood Urine Nitrite Urine Bilirubin Urine Urobilinogen Ur Leukocyte Esterase Urine WBC (Auto) Urine RBC (Auto) Ur Epithelial Cells Urine Bacteria Urine Yeast Stool Occult Blood Negative 11/05/17 11/05/17 11/05/17 08:55 08:55 08:55 WBC RBC Hgb Hct MCV MCH MCHC RDW Plt Count MPV Absolute Neuts (auto) Neutrophils % Lymphocytes % Monocytes % Eosinophils % Basophils % Nucleated RBC % PT with INR 54.60 H INR 4.83 H* PTT (Actin FS) 38.0 H VBG pH 7.31 L POC VBG pCO2 35.9 L POC VBG pO2 24.3 L Mixed VBG HCO3 17.7 L Sodium Potassium Chloride Carbon Dioxide Anion Gap BUN Creatinine Creat Clearance w eGFR POC Glucometer Random Glucose Lactic Acid Calcium Total Bilirubin AST ALT Alkaline Phosphatase Creatine Kinase CK-MB (CK-2) Troponin I Total Protein Albumin Urine Color Dkyellow Urine Appearance Cloudy Urine pH 7.0 Ur Specific [place] 1.012 Urine Protein 2+ H Urine Glucose (UA) Negative Urine Ketones Negative Urine Blood 2+ H Urine Nitrite Negative Urine Bilirubin Negative Urine Urobilinogen Negative Ur Leukocyte Esterase 3+ H Urine WBC (Auto) 107 Urine RBC (Auto) 14 Ur Epithelial Cells Rare Urine Bacteria Many Urine Yeast Moderate Stool Occult Blood 11/05/17 11/05/17 08:55 08:55 WBC RBC Hgb Hct MCV MCH MCHC RDW Plt Count MPV Absolute Neuts (auto) Neutrophils % Lymphocytes % Monocytes % Eosinophils % Basophils % Nucleated RBC % PT with INR INR PTT (Actin FS) VBG pH POC VBG pCO2 POC VBG pO2 Mixed VBG HCO3 Sodium 133 L Potassium 5.5 H Chloride 102 Carbon Dioxide 16 L Anion Gap 15 BUN 48 H Creatinine 1.8 H Creat Clearance w eGFR 37.60 POC Glucometer Random Glucose 204 H Lactic Acid 2.4 H* Calcium 9.7 Total Bilirubin 0.5 AST 22 ALT 25 Alkaline Phosphatase 260 H Creatine Kinase 42 CK-MB (CK-2) 1.9 Troponin I < 0.02 Total Protein 6.5 Albumin 2.0 L Urine Color Urine Appearance Urine pH Ur Specific [place] Urine Protein Urine Glucose (UA) Urine Ketones Urine Blood Urine Nitrite Urine Bilirubin Urine Urobilinogen Ur Leukocyte Esterase Urine WBC (Auto) Urine RBC (Auto) Ur Epithelial Cells Urine Bacteria Urine Yeast Stool Occult Blood Reassessment: Sleeping comfortably, repeat exam with continued mild RUQ tenderness. Vital Signs Temperature 96.4 F L 11/05/17 08:36 Pulse Rate 112 H 11/05/17 11:10 Respiratory Rate 18 11/05/17 11:10 Blood Pressure 87/57 L 11/05/17 11:10 O2 Sat by Pulse Oximetry (%) 98 11/05/17 11:10 Repeat BP again at 12:00: 88/59. This is after 3 liters IVF. Patient may need pressors during admission. Likelihood that patient will need central venous access when back from CT. 11/05/17 12:13 Ordered one albuterol neb given hyperkalemia. Will await CT results to ensure nonsurgical abdomen, then decide whether to order PO kayexalate. Again, there are no peaked T waves on EKG taken at 08:53 today. The Pt is unsafe for discharge at this time. They require further hospital observation, workup, and treatment. I spoke with Dr. Yang who is in agreement patient to be admitted. Decision to Admit order placed. I spoke with ICU on-call and the patient is accepted for placement. Consult orders placed for Delaney Aguirre, Hyun Alvarado, and Caitlin. 11/05/17 14:45 Post-CVC placement film shows good RIJ CVC placement with tip of CVC in the right atrium. *DC/Admit/Observation/Transfer Diagnosis at time of Disposition: HEYDI (acute kidney injury), Supratherapeutic INR UTI (urinary tract infection) Qualifiers: Urinary tract infection type: acute cystitis Hematuria presence: with hematuria Qualified Code(s): N30.01 - Acute cystitis with hematuria Sepsis Qualifiers: Sepsis type: sepsis due to unspecified organism Qualified Code(s): A41.9 - Sepsis, unspecified organism - Discharge Dispostion Condition at time of disposition: Guarded Decision to Admit order: Yes - Referrals - Patient Instructions - Post Discharge Activity
[2017-11-05 09:20] LABS: BASO % 0.8 % (0-2.0); EOS % 0.1 % (0-4.5); HEMATOCRIT 37.4 % (35.4-49); LYMPH % 2.7 % (8-40); MCH 26.7 pg (25.7-33.7); MEAN CELL VOLUME 83.4 fl (80-96); MEAN PLT VOLUME 9.5 fl (7.5-11.1); MONO % 6.4 % (3.8-10.2); PLATELET COUNT 467 K/MM3 (134-434); RBC 4.48 M/mm3 (4.00-5.60)
[2017-11-05 09:23] LABS: VENOUS PC02 35.9 mmHg (38-52); VENOUS PH 7.31 (7.32-7.42); VENOUS PO2 24.3 mmHg (28-48)
[2017-11-05] MEDS ORDERED: PIPERACILLIN/TAZOBACTAM 4.5 GM VIAL IVPB ONE (09:39)
[2017-11-05] MEDS ORDERED: SODIUM CHLORIDE 0.9% 1000 ML INFUS.BAG IV ONE (09:48)
[2017-11-05 09:51] LABS: PROTHROMBIN TIME (PATIENT) 54.6 SEC (9.7-13.0)
[2017-11-05 10:11] LABS: INR 4.83 (0.83-1.09)
[2017-11-05 10:14] LABS: ALK PHOS 260 U/L (45-117); ANION GAP 15 MMOL/L (8-16); BILIRUBIN,TOTAL 0.5 mg/dL (0.2-1); BLOOD UREA NITROGEN 48 mg/dL (7-18); CALCIUM 9.7 mg/dL (8.5-10.1); CHLORIDE 102 mmol/L (98-107); CO2 16 mmol/L (21-32); CREATININE 1.8 mg/dL (0.55-1.3); GLUCOSE,RANDOM 204 mg/dL (74-106); POTASSIUM 5.5 mmol/L (3.5-5.1); SGOT/AST 22 U/L (15-37); SGPT/ALT 25 U/L (13-61); SODIUM 133 mmol/L (136-145); TOT PROT 6.5 g/dl (6.4-8.2)
[2017-11-05] MEDS ORDERED: PIPERACILLIN/TAZOB 4.5 GM 4.5 GM/100 ML BAG IVPB ONE (10:28)
[2017-11-05] MEDS ORDERED: ACETAMINOPHEN 1000 MG/100 ML VIAL (NON FORMULARY) IVPB ONE (10:37)
[2017-11-05] MEDS ORDERED: VANCOMYCIN 1,500 MG in DEXTROSE 5%-WATER - 500 ML IVPB ONE (10:38)
[2017-11-05 10:45] LABS: URINE APPEARANCE CLOUDY; URINE BILIRUBIN NEGATIVE (<2.0 mg/dL); URINE COLOR DKYELLOW; URINE GLUCOSE (UA) NEGATIVE (NEGATIVE); URINE KETONE NEGATIVE (NEGATIVE); URINE NITRITE NEGATIVE (NEGATIVE); URINE UROBILINOGEN NEGATIVE mg/dL (0.2-1.0)
[2017-11-05 10:51] LABS: URINE LEUK ESTERASE 3+ (NEGATIVE); URINE PROTEIN 2+ (NEGATIVE)
[2017-11-05 10:52] LABS: EPI CELLS RARE /HPF (FEW); URINE BACTERIA MANY /hpf (NONE SEEN); YEAST MODERATE
[2017-11-05] MEDS ORDERED: ACETAMINOPHEN INJECTION 100 ML IVPB ONE (10:56)
[2017-11-05 11:24] LABS: ACANTHOCYTES 0; ANISOCYTOSIS 0; HELMET CELLS 0; HOWELL-JOLLY BODIES 0; MACROCYTOSIS 0; OVALOCYTE 0; PLATELET ESTIMATE NORMAL; ROULEAU 0; SICKELED CELLS 0; TARGET CELLS 0; TEAR DROP CELLS 0; TOXIC GRANULATION 0
[2017-11-05] MEDS ORDERED: ALBUTEROL SO4 0.083% IH SOL 2.5 MG/3 ML VIAL.NEB. NEB ONE (12:10)
[2017-11-05] MEDS ORDERED: VASOPRESSIN 50 UNITS in SODIUM CHLORIDE 97.5 ML IVPB SCH (14:00)
--- NOTE | 2017-11-05 14:31 | EKG ---
Test Reason : Blood Pressure : / mmHG Vent. Rate : 144 BPM Atrial Rate : 156 BPM P-R Int : 000 ms QRS Dur : 086 ms QT Int : 312 ms P-R-T Axes : 000 -15 046 degrees QTc Int : 483 ms ATRIAL FIBRILLATION WITH RAPID VENTRICULAR RESPONSE NONSPECIFIC ST AND T WAVE ABNORMALITY ABNORMAL ECG WHEN COMPARED WITH ECG OF 04-NOV-2017 09:31, ATRIAL FIBRILLATION HAS REPLACED SINUS RHYTHM VENT. RATE HAS INCREASED BY 55 BPM Confirmed by KAMLESH CAMARGO MD ([id number]) on 11/05/2017 2:31:05 PM Referred By: Confirmed By:KAMLESH CAMARGO MD
[2017-11-05] MEDS ORDERED: SODIUM POLYSTYRENE SULFONATE 15 GM/60 ML BOTTLE PO ONE (14:36)
[2017-11-05] MEDS ORDERED: SODIUM CHLORIDE 1,000 ML IV SCH (14:45)
[2017-11-05] MEDS ORDERED: ACETAMINOPHEN 1000 MG/100 ML VIAL (NON FORMULARY) IVPB PRN (14:49)
--- NOTE | 2017-11-05 15:01 | CONSULT ---
Consultation: REQUESTING PROVIDER: Dr. Gregory CONSULT REQUEST: We have been asked to medically evaluate this patient for Dr. Morales. HISTORY OF PRESENT ILLNESS: A 67 y.o. M w/ PMHx. of A.Fib ( on warfarin), sCHF, CAD, HTN, GERD, s/p cystectomy and ileal conduit for Metastatic Bladder Ca ( Lungs, Liver, L2-L4 vertebrae and right adrenal gland), and recent (discharged ) hospital admission for UTI( completed Amoxicillin for E.Coli and Enterrococcus Faecium). Pt. states that he has had a suprapubic catheter placed over 7 years ago and has not had chemotherapy in years. Pt. is a poor historian as Pt. is unable to remember the date, his birthday or where he is. Pt. describes feeling weak and endorses back pain. Per EMS report and chart review from ED records, Pt. presented from [facility] with tachycardia, SBP in the 60s , non-responsive to fluids and generalized weakness. Pt. received 3.5 L in total before being trasnported to the ICU. REVIEW OF SYSTEMS: CONSTITUTIONAL: Present: generalized weakness Absent: fever, chills, diaphoresis, , malaise, loss of appetite, weight change HEENT: Absent: rhinorrhea, nasal congestion, throat pain, throat swelling, difficulty swallowing, mouth swelling, ear pain, eye pain, visual changes CARDIOVASCULAR: Absent: chest pain, syncope, palpitations, irregular heart rate , lightheadedness, peripheral edema RESPIRATORY: Absent: cough, shortness of breath, dyspnea with exertion, orthopnea, wheezing, stridor, hemoptysis GASTROINTESTINAL: Absent: abdominal pain, abdominal distension, nausea, vomiting , diarrhea, constipation, melena, hematochezia GENITOURINARY: Present: Hematuria Absent: dysuria, frequency, urgency, hesitancy , flank pain, genital pain MUSCULOSKELETAL: Present: back pain Absent: myalgia, arthralgia, joint swelling , neck pain SKIN: Absent: rash, itching, pallor HEMATOLOGIC/IMMUNOLOGIC: Absent: easy bleeding, easy bruising, lymphadenopathy, frequent infections ENDOCRINE: Present: cold intolerance Absent: unexplained weight gain, unexplained weight loss, heat intolerance, NEUROLOGIC: Absent: headache, focal weakness or paresthesias, dizziness, unsteady gait, seizure, mental status changes, bladder or bowel incontinence PHYSICAL EXAMINATION Vital Signs - 24 hr 09/27/18 09/27/18 09/27/18 08:35 08:36 08:37 Temperature 96.7 F L 96.4 F L Pulse Rate 140 H Pulse Rate [ 145 H Apical] Respiratory 20 20 Rate Blood Pressure 80/42 L Blood Pressure 70/42 L [Right Arm] O2 Sat by Pulse 96 96 Oximetry (%) 11/05/17 11/05/17 11/05/17 09:06 10:05 10:26 Temperature Pulse Rate Pulse Rate [ 116 H 130 H 120 H Apical] Respiratory 20 20 16 Rate Blood Pressure Blood Pressure 88/46 L 99/56 L 106/59 L [Right Arm] O2 Sat by Pulse 98 98 98 Oximetry (%) 11/05/17 11/05/17 11/05/17 10:45 11:10 12:05 Temperature Pulse Rate Pulse Rate [ 120 H 112 H 120 H Apical] Respiratory 20 18 20 Rate Blood Pressure Blood Pressure 74/56 L 87/57 L 88/56 L [Right Arm] O2 Sat by Pulse 98 98 98 Oximetry (%) 11/05/17 11/05/17 11/05/17 13:00 13:54 14:16 Temperature Pulse Rate Pulse Rate [ 118 H 96 H 125 H Apical] Respiratory 20 16 16 Rate Blood Pressure Blood Pressure 77/56 L 95/56 L 77/56 L [Right Arm] O2 Sat by Pulse 100 100 100 Oximetry (%) GENERAL: Awake, alert, and oriented only to name, in no acute distress. EYES: Pupils equal, round and reactive to light, sclera anicteric, conjunctiva clear. No lid lag. EARS, NOSE, THROAT: Ears normal, nares patent, oropharynx clear without exudates. Moist mucous membranes. LUNGS: Breath sounds equal, clear to auscultation bilaterally. No wheezes, and no crackles. No accessory muscle use. HEART: Irregular rate and rhythm ABDOMEN: Soft, nontender, not distended, normoactive bowel sounds, no guarding, no rebound, no masses. MUSCULOSKELETAL: No CVA tenderness? UPPER EXTREMITIES: 2+ pulses, cool to touch, pale, no clubbing. Cap refill <3 seconds. No peripheral edema. LOWER EXTREMITIES: 2+ pulses, warm, well-perfused. No calf tenderness. No peripheral edema. PSYCHIATRIC: Cooperative. Good eye contact. Appropriate mood and affect. SKIN: Warm, dry, normal turgor, Laboratory Results - last 24 hr 11/05/17 11/05/17 11/05/17 08:43 08:45 08:55 WBC 16.0 H RBC 4.48 Hgb 12.0 Hct 37.4 MCV 83.4 MCH 26.7 MCHC 32.0 RDW 16.0 H Plt Count 467 H D MPV 9.5 Absolute Neuts (auto) 14.4 H Neutrophils % 90.0 H Neutrophils % (Manual) 84.4 H Band Neutrophils % 0.0 Lymphocytes % 2.7 L D Lymphocytes % (Manual) 4.2 L Monocytes % 6.4 Monocytes % (Manual) 6 D Eosinophils % 0.1 D Eosinophils % (Manual) 0.0 Basophils % 0.8 Basophils % (Manual) 1.0 Myelocytes % (Man) 0 Promyelocytes % (Man) 0 Blast Cells % (Manual) 0 Nucleated RBC % 0 Metamyelocytes 0 Hypochromia 0 Toxic Granulation 0 Dohle Bodies 0 Platelet Estimate Normal Polychromasia 0 Poikilocytosis 0 Basophilic Stippling 0 Anisocytosis 0 Microcytosis 0 Macrocytosis 0 Spherocytes 0 Sickle Cells 0 Target Cells 0 Tear Drop Cells 0 Ovalocytes 0 Stomatocytes 0 Helmet Cells 0 [place] Bodies 0 [place] Rings 0 [place] Cells 0 Acanthocytes (Spur) 0 Rouleaux 0 Fragmented RBCs 0 Schistocytes 0 PT with INR INR PTT (Actin FS) VBG pH POC VBG pCO2 POC VBG pO2 Mixed VBG HCO3 Sodium Potassium Chloride Carbon Dioxide Anion Gap BUN Creatinine Creat Clearance w eGFR POC Glucometer [phone] Random Glucose Lactic Acid Calcium Total Bilirubin AST ALT Alkaline Phosphatase Creatine Kinase CK-MB (CK-2) Troponin I Total Protein Albumin Urine Color Urine Appearance Urine pH Ur Specific [place] Urine Protein Urine Glucose (UA) Urine Ketones Urine Blood Urine Nitrite Urine Bilirubin Urine Urobilinogen Ur Leukocyte Esterase Urine WBC (Auto) Urine RBC (Auto) Ur Epithelial Cells Urine Bacteria Urine Yeast Stool Occult Blood Negative Blood Type Antibody Screen 11/05/17 11/05/17 11/05/17 08:55 08:55 08:55 WBC RBC Hgb Hct MCV MCH MCHC RDW Plt Count MPV Absolute Neuts (auto) Neutrophils % Neutrophils % (Manual) Band Neutrophils % Lymphocytes % Lymphocytes % (Manual) Monocytes % Monocytes % (Manual) Eosinophils % Eosinophils % (Manual) Basophils % Basophils % (Manual) Myelocytes % (Man) Promyelocytes % (Man) Blast Cells % (Manual) Nucleated RBC % Metamyelocytes Hypochromia Toxic Granulation Dohle Bodies Platelet Estimate Polychromasia Poikilocytosis Basophilic Stippling Anisocytosis Microcytosis Macrocytosis Spherocytes Sickle Cells Target Cells Tear Drop Cells Ovalocytes Stomatocytes Helmet Cells [place] Bodies [place] Rings [place] Cells Acanthocytes (Spur) Rouleaux Fragmented RBCs Schistocytes PT with INR 54.60 H INR 4.83 H* PTT (Actin FS) 38.0 H VBG pH 7.31 L POC VBG pCO2 35.9 L POC VBG pO2 24.3 L Mixed VBG HCO3 17.7 L Sodium Potassium Chloride Carbon Dioxide Anion Gap BUN Creatinine Creat Clearance w eGFR POC Glucometer Random Glucose Lactic Acid Calcium Total Bilirubin AST ALT Alkaline Phosphatase Creatine Kinase CK-MB (CK-2) Troponin I Total Protein Albumin Urine Color Dkyellow Urine Appearance Cloudy Urine pH 7.0 Ur Specific [place] 1.012 Urine Protein 2+ H Urine Glucose (UA) Negative Urine Ketones Negative Urine Blood 2+ H Urine Nitrite Negative Urine Bilirubin Negative Urine Urobilinogen Negative Ur Leukocyte Esterase 3+ H Urine WBC (Auto) 107 Urine RBC (Auto) 14 Ur Epithelial Cells Rare Urine Bacteria Many Urine Yeast Moderate Stool Occult Blood Blood Type Antibody Screen 11/05/17 11/05/17 11/05/17 08:55 08:55 08:55 WBC RBC Hgb Hct MCV MCH MCHC RDW Plt Count MPV Absolute Neuts (auto) Neutrophils % Neutrophils % (Manual) Band Neutrophils % Lymphocytes % Lymphocytes % (Manual) Monocytes % Monocytes % (Manual) Eosinophils % Eosinophils % (Manual) Basophils % Basophils % (Manual) Myelocytes % (Man) Promyelocytes % (Man) Blast Cells % (Manual) Nucleated RBC % Metamyelocytes Hypochromia Toxic Granulation Dohle Bodies Platelet Estimate Polychromasia Poikilocytosis Basophilic Stippling Anisocytosis Microcytosis Macrocytosis Spherocytes Sickle Cells Target Cells Tear Drop Cells Ovalocytes Stomatocytes Helmet Cells [place] Bodies [place] Rings [place] Cells Acanthocytes (Spur) Rouleaux Fragmented RBCs Schistocytes PT with INR INR PTT (Actin FS) VBG pH POC VBG pCO2 POC VBG pO2 Mixed VBG HCO3 Sodium 133 L Potassium 5.5 H Chloride 102 Carbon Dioxide 16 L Anion Gap 15 BUN 48 H Creatinine 1.8 H Creat Clearance w eGFR 37.60 POC Glucometer Random Glucose 204 H Lactic Acid 2.4 H* Calcium 9.7 Total Bilirubin 0.5 AST 22 ALT 25 Alkaline Phosphatase 260 H Creatine Kinase 42 CK-MB (CK-2) 1.9 Troponin I < 0.02 Total Protein 6.5 Albumin 2.0 L Urine Color Urine Appearance Urine pH Ur Specific [place] Urine Protein Urine Glucose (UA) Urine Ketones Urine Blood Urine Nitrite Urine Bilirubin Urine Urobilinogen Ur Leukocyte Esterase Urine WBC (Auto) Urine RBC (Auto) Ur Epithelial Cells Urine Bacteria Urine Yeast Stool Occult Blood Blood Type A POSITIVE Antibody Screen Negative 11/05/17 10:46 WBC RBC Hgb Hct MCV MCH MCHC RDW Plt Count MPV Absolute Neuts (auto) Neutrophils % Neutrophils % (Manual) Band Neutrophils % Lymphocytes % Lymphocytes % (Manual) Monocytes % Monocytes % (Manual) Eosinophils % Eosinophils % (Manual) Basophils % Basophils % (Manual) Myelocytes % (Man) Promyelocytes % (Man) Blast Cells % (Manual) Nucleated RBC % Metamyelocytes Hypochromia Toxic Granulation Dohle Bodies Platelet Estimate Polychromasia Poikilocytosis Basophilic Stippling Anisocytosis Microcytosis Macrocytosis Spherocytes Sickle Cells Target Cells Tear Drop Cells Ovalocytes Stomatocytes Helmet Cells [place] Bodies [place] Rings [place] Cells Acanthocytes (Spur) Rouleaux Fragmented RBCs Schistocytes PT with INR INR PTT (Actin FS) VBG pH POC VBG pCO2 POC VBG pO2 Mixed VBG HCO3 Sodium Potassium Chloride Carbon Dioxide Anion Gap BUN Creatinine Creat Clearance w eGFR POC Glucometer Random Glucose Lactic Acid 1.5 Calcium Total Bilirubin AST ALT Alkaline Phosphatase Creatine Kinase CK-MB (CK-2) Troponin I Total Protein Albumin Urine Color Urine Appearance Urine pH Ur Specific [place] Urine Protein Urine Glucose (UA) Urine Ketones Urine Blood Urine Nitrite Urine Bilirubin Urine Urobilinogen Ur Leukocyte Esterase Urine WBC (Auto) Urine RBC (Auto) Ur Epithelial Cells Urine Bacteria Urine Yeast Stool Occult Blood Blood Type Antibody Screen Active Medications Current Medications Acetaminophen (Ofirmev Injection -) 1,000 mg IVPB Q6H PRN PRN Reason: Pain 1-7 Aspirin (Ecotrin -) 81 mg PO DAILY [facility] Chlorhexidine Gluconate (Hibiclens For Decolonization -) 1 applic TP HS [facility] Clopidogrel Bisulfate (Plavix -) 75 mg PO DAILY [facility] Heparin Sodium (Porcine) (Heparin -) 5,000 unit SQ TID [facility] Norepinephrine Bitartrate 4, (000 mcg/ Dextrose) 500 mls @ 37.5 mls/hr IV TITR [facility]; Protocol Sodium Chloride (Normal Saline -) 1,000 mls @ 75 mls/hr IV ASDIR [facility] Insulin Aspart (Novolog Vial Sliding Scale -) 0 vial SQ ACHS [facility]; Protocol Mupirocin (Bactroban Ointment (For Decolonization) -) 1 applic NS BID [facility] Stop: 11/10/17 21:59 Pantoprazole Sodium (Protonix Iv) 40 mg IVPUSH DAILY [facility] ASSESSMENT/PLAN: A 67 y.o. M w/ PMHx. of A.Fib (on warfarin), sCHF, CAD, HTN, GERD, s/p cystectomy and ileal conduit for Metastatic Bladder Ca (Lungs, Liver, L2-L4 vertebrae and right adrenal gland), and recent (discharged 11/04/17) hospital admission for UTI( completed Amoxicillin for E.Coli and Enterrococcus Faecium) presents to the ED with hypotension, tachycardia and generalized weakness. #Cardiovascular -Hypotension 2/2 septic shock Received 5L of NS Central Line placed( RIJ) monitor CVP start Levophed @ 10mcg start Hydrocortisone 50mg Q6H Hold Spironolactone, Lisinopril and Metoprolol VBG appreciated Lactic Acid 2.4-->1.5 -CAD Hardware visible on CT scan c/w ASA and Plavix Troponin - EKG appreciated: A.Fib w/ RVR, QTc: 483, Monitor QTc, especially with QT prolonging drugs. -CHF Hold home Lasix Echo(10/28/17): severe global hypokinesis of LV, severe reduced LV function, normal LV size Cardiology consult appreciated ( Dr. Alvarado) Strict Is & Os -A.Fib Hold warfarin as INR is supra therapeutic to 4.83 Hold Metoprolol as Pt. is hypotensive on Levophed #Pulmonology -Pulmonary Metastases CXR (11/05/17) confirmed pulmonary nodules, no acute pathology CT Scan (11/05/17): shows multiple mets to liver, lungs, worsening hydronephrosis , suspicious for distal ureteral strictures at conduit, worsening L2-L4 bone metastases, new right adrenal metastases stable #Urology -s/p cystectomy and ileal conduit for Metastatic Bladder Ca S/p suprapubic catheter placement Urology Consult appreciated (Dr. Ruddy Mcguire) Nephrology Consult appreciated (Dr. Baltazar) #Infectious Disease -Septic Shock 2/2 complicated UTI UA positive for bacteria, yeast, WBCs and 3+ LE received 1 dose of Vanc and Zosyn in ED, will D/C Vanc at this time per ID Given loading dose of Cancidas(Capsofungin) 70mg. Will reassess tomorrow if we need to continue with 50mg maintenance dose. Did not give Diflucan as that would further increase warfarin levels which are already supratherapeutic c/w Zosyn 3.375- (renally dosed) f/u random Vancomycin level f/u Urine Cx. and BCx. ID consult appreciated (Dr. Gaines) #Psychiatry -Depression stable hold Citalopram 10mg #F/E/N -received 1L NS in EMS, 3L in ED and 1L in ICU, -Strict Is & Os -monitor electrolytes and replete as necessary -NPO #PPx. -DVT Heparin SQ ASA Plavix Hold Warfarin as INR is supratherapeutic @ 4.83 -GI c/w IV Protonix 50mg Visit type - Emergency Visit Emergency Visit: Yes ED Registration Date: 11/05/17 Care time: The patient presented to the Emergency Department on the above date and was hospitalized for further evaluation of their emergent condition. - New Patient This patient is new to me today: Yes Date on this admission: 11/06/17 - Critical Care Critical Care patient: No
[2017-11-05] MEDS ORDERED: NOREPINEPHRINE BITARTRATE 4 MG/4 ML ML IV ONE (15:20)
--- NOTE | 2017-11-05 15:36 | PN ---
Teaching Attending Note Name of Resident: Durga Crystal ATTENDING PHYSICIAN STATEMENT I saw and evaluated the patient. I reviewed the resident's note and discussed the case with the resident. I agree with the resident's findings and plan as documented. SUBJECTIVE: 67 M, known metastatic bladder CA (lungs, liver, right adrenal), Cystectomy, ileal conduit, AFib on Coumadin, CAD, CHF, GERD, and recent admission for UTI. Re-admitted via the ER due to hypotension. Patient has received 3.5 Liters of IVF and remains hypotensive. Right IJ TLC was inserted in the ER. No travel history or sick contacts. No hemoptysis. CXR: multiple bilateral lesions / (-) PTX Intake & Output 11/02/17 11/03/17 11/04/17 11/05/17 23:59 23:59 23:59 23:59 Intake Total 1500 Output Total 100 Balance 1400 Weight 177 lb Last Vital Signs Temp Pulse Resp BP Pulse Ox 96.4 F L 98 H 18 87/65 L 100 11/05/17 08:36 11/05/17 14:59 11/05/17 14:59 11/05/17 14:59 11/05/17 14:59 Active Medications Acetaminophen (Ofirmev Injection -) 1,000 mg IVPB Q6H PRN PRN Reason: Pain 1-7 Aspirin (Ecotrin -) 81 mg PO DAILY [facility] Chlorhexidine Gluconate (Hibiclens For Decolonization -) 1 applic TP HS [facility] Clopidogrel Bisulfate (Plavix -) 75 mg PO DAILY [facility] Heparin Sodium (Porcine) (Heparin -) 5,000 unit SQ TID [facility] Norepinephrine Bitartrate 4, (000 mcg/ Dextrose) 500 mls @ 37.5 mls/hr IV TITR [facility]; Protocol Sodium Chloride (Normal Saline -) 1,000 mls @ 75 mls/hr IV ASDIR [facility] Insulin Aspart (Novolog Vial Sliding Scale -) 0 vial SQ ACHS [facility]; Protocol Mupirocin (Bactroban Ointment (For Decolonization) -) 1 applic NS BID [facility] Stop: 11/10/17 21:59 Pantoprazole Sodium (Protonix Iv) 40 mg IVPUSH DAILY [facility] GENERAL: Awake, alert, confused EYES: Sclera anicteric, conjunctiva clear. No lid lag. EARS, NOSE, THROAT: Ears normal, nares patent, oropharynx clear without exudates. Moist mucous membranes. LUNGS: few rhonchi, (-) wheeze HEART: Tachycardia ABDOMEN: Soft, nontender, (+) BS, (+) RLQ ileal conduit MUSCULOSKELETAL: No CVA tenderness UPPER EXTREMITIES: 2+ pulses, cool to touch, pale, no clubbing. Cap refill <2 seconds. No peripheral edema. LOWER EXTREMITIES: 2+ pulses, warm, well-perfused. No calf tenderness. No peripheral edema. PSYCHIATRIC: Cooperative. SKIN: Warm, dry, normal turgor Laboratory Results - last 24 hr 11/05/17 11/05/17 11/05/17 08:43 08:45 08:55 WBC 16.0 H RBC 4.48 Hgb 12.0 Hct 37.4 MCV 83.4 MCH 26.7 MCHC 32.0 RDW 16.0 H Plt Count 467 H D MPV 9.5 Absolute Neuts (auto) 14.4 H Neutrophils % 90.0 H Neutrophils % (Manual) 84.4 H Band Neutrophils % 0.0 Lymphocytes % 2.7 L D Lymphocytes % (Manual) 4.2 L Monocytes % 6.4 Monocytes % (Manual) 6 D Eosinophils % 0.1 D Eosinophils % (Manual) 0.0 Basophils % 0.8 Basophils % (Manual) 1.0 Myelocytes % (Man) 0 Promyelocytes % (Man) 0 Blast Cells % (Manual) 0 Nucleated RBC % 0 Metamyelocytes 0 Hypochromia 0 Toxic Granulation 0 Dohle Bodies 0 Platelet Estimate Normal Polychromasia 0 Poikilocytosis 0 Basophilic Stippling 0 Anisocytosis 0 Microcytosis 0 Macrocytosis 0 Spherocytes 0 Sickle Cells 0 Target Cells 0 Tear Drop Cells 0 Ovalocytes 0 Stomatocytes 0 Helmet Cells 0 [place] Bodies 0 [place] Rings 0 [place]ja Cells 0 Acanthocytes (Spur) 0 Rouleaux 0 Fragmented RBCs 0 Schistocytes 0 PT with INR INR PTT (Actin FS) VBG pH POC VBG pCO2 POC VBG pO2 Mixed VBG HCO3 Sodium Potassium Chloride Carbon Dioxide Anion Gap BUN Creatinine Creat Clearance w eGFR POC Glucometer [phone] Random Glucose Lactic Acid Calcium Total Bilirubin AST ALT Alkaline Phosphatase Creatine Kinase CK-MB (CK-2) Troponin I Total Protein Albumin Urine Color Urine Appearance Urine pH Ur Specific [place] Urine Protein Urine Glucose (UA) Urine Ketones Urine Blood Urine Nitrite Urine Bilirubin Urine Urobilinogen Ur Leukocyte Esterase Urine WBC (Auto) Urine RBC (Auto) Ur Epithelial Cells Urine Bacteria Urine Yeast Stool Occult Blood Negative Blood Type Antibody Screen 11/05/17 11/05/17 11/05/17 08:55 08:55 08:55 WBC RBC Hgb Hct MCV MCH MCHC RDW Plt Count MPV Absolute Neuts (auto) Neutrophils % Neutrophils % (Manual) Band Neutrophils % Lymphocytes % Lymphocytes % (Manual) Monocytes % Monocytes % (Manual) Eosinophils % Eosinophils % (Manual) Basophils % Basophils % (Manual) Myelocytes % (Man) Promyelocytes % (Man) Blast Cells % (Manual) Nucleated RBC % Metamyelocytes Hypochromia Toxic Granulation Dohle Bodies Platelet Estimate Polychromasia Poikilocytosis Basophilic Stippling Anisocytosis Microcytosis Macrocytosis Spherocytes Sickle Cells Target Cells Tear Drop Cells Ovalocytes Stomatocytes Helmet Cells [place] Bodies [place] Rings Sonja Cells Acanthocytes (Spur) Rouleaux Fragmented RBCs Schistocytes PT with INR 54.60 H INR 4.83 H* PTT (Actin FS) 38.0 H VBG pH 7.31 L POC VBG pCO2 35.9 L POC VBG pO2 24.3 L Mixed VBG HCO3 17.7 L Sodium Potassium Chloride Carbon Dioxide Anion Gap BUN Creatinine Creat Clearance w eGFR POC Glucometer Random Glucose Lactic Acid Calcium Total Bilirubin AST ALT Alkaline Phosphatase Creatine Kinase CK-MB (CK-2) Troponin I Total Protein Albumin Urine Color Dkyellow Urine Appearance Cloudy Urine pH 7.0 Ur Specific [place] 1.012 Urine Protein 2+ H Urine Glucose (UA) Negative Urine Ketones Negative Urine Blood 2+ H Urine Nitrite Negative Urine Bilirubin Negative Urine Urobilinogen Negative Ur Leukocyte Esterase 3+ H Urine WBC (Auto) 107 Urine RBC (Auto) 14 Ur Epithelial Cells Rare Urine Bacteria Many Urine Yeast Moderate Stool Occult Blood Blood Type Antibody Screen 11/05/17 11/05/17 11/05/17 08:55 08:55 08:55 WBC RBC Hgb Hct MCV MCH MCHC RDW Plt Count MPV Absolute Neuts (auto) Neutrophils % Neutrophils % (Manual) Band Neutrophils % Lymphocytes % Lymphocytes % (Manual) Monocytes % Monocytes % (Manual) Eosinophils % Eosinophils % (Manual) Basophils % Basophils % (Manual) Myelocytes % (Man) Promyelocytes % (Man) Blast Cells % (Manual) Nucleated RBC % Metamyelocytes Hypochromia Toxic Granulation Dohle Bodies Platelet Estimate Polychromasia Poikilocytosis Basophilic Stippling Anisocytosis Microcytosis Macrocytosis Spherocytes Sickle Cells Target Cells Tear Drop Cells Ovalocytes Stomatocytes Helmet Cells [place] Bodies [place] Rings [place] Cells Acanthocytes (Spur) Rouleaux Fragmented RBCs Schistocytes PT with INR INR PTT (Actin FS) VBG pH POC VBG pCO2 POC VBG pO2 Mixed VBG HCO3 Sodium 133 L Potassium 5.5 H Chloride 102 Carbon Dioxide 16 L Anion Gap 15 BUN 48 H Creatinine 1.8 H Creat Clearance w eGFR 37.60 POC Glucometer Random Glucose 204 H Lactic Acid 2.4 H* Calcium 9.7 Total Bilirubin 0.5 AST 22 ALT 25 Alkaline Phosphatase 260 H Creatine Kinase 42 CK-MB (CK-2) 1.9 Troponin I < 0.02 Total Protein 6.5 Albumin 2.0 L Urine Color Urine Appearance Urine pH Ur Specific [place] Urine Protein Urine Glucose (UA) Urine Ketones Urine Blood Urine Nitrite Urine Bilirubin Urine Urobilinogen Ur Leukocyte Esterase Urine WBC (Auto) Urine RBC (Auto) Ur Epithelial Cells Urine Bacteria Urine Yeast Stool Occult Blood Blood Type A POSITIVE Antibody Screen Negative 11/05/17 10:46 WBC RBC Hgb Hct MCV MCH MCHC RDW Plt Count MPV Absolute Neuts (auto) Neutrophils % Neutrophils % (Manual) Band Neutrophils % Lymphocytes % Lymphocytes % (Manual) Monocytes % Monocytes % (Manual) Eosinophils % Eosinophils % (Manual) Basophils % Basophils % (Manual) Myelocytes % (Man) Promyelocytes % (Man) Blast Cells % (Manual) Nucleated RBC % Metamyelocytes Hypochromia Toxic Granulation Dohle Bodies Platelet Estimate Polychromasia Poikilocytosis Basophilic Stippling Anisocytosis Microcytosis Macrocytosis Spherocytes Sickle Cells Target Cells Tear Drop Cells Ovalocytes Stomatocytes Helmet Cells [place] Bodies [place] Rings [place] Cells Acanthocytes (Spur) Rouleaux Fragmented RBCs Schistocytes PT with INR INR PTT (Actin FS) VBG pH POC VBG pCO2 POC VBG pO2 Mixed VBG HCO3 Sodium Potassium Chloride Carbon Dioxide Anion Gap BUN Creatinine Creat Clearance w eGFR POC Glucometer Random Glucose Lactic Acid 1.5 Calcium Total Bilirubin AST ALT Alkaline Phosphatase Creatine Kinase CK-MB (CK-2) Troponin I Total Protein Albumin Urine Color Urine Appearance Urine pH Ur Specific [place] Urine Protein Urine Glucose (UA) Urine Ketones Urine Blood Urine Nitrite Urine Bilirubin Urine Urobilinogen Ur Leukocyte Esterase Urine WBC (Auto) Urine RBC (Auto) Ur Epithelial Cells Urine Bacteria Urine Yeast Stool Occult Blood Blood Type Antibody Screen ASSESSMENT/PLAN: Sepsis / Septic Shock due to a source Afib CHF CAD GERD HTN S/P Cystectomy Ileal conduit Metastatic Bladder CA Recent UTI PLAN: Check CVP Volume resuscitation CVP: 8 to 12 Will likely need to start NE for hemodynamic support Strict I & O Broad ABX ID evaluation O2 as needed Benitez-culture ICU monitoring for shock Dr Varma Critical care time spent in reviewing chart, evaluating patient and formulating plan - 36 minutes.
[2017-11-05] MEDS: NOREPINEPHRINE BITARTRATE 4,000 MCG in DEXTROSE 5%-WATER - 496 ML IV SCH (15:50)
--- NOTE | 2017-11-05 15:53 | CONSULT ---
Consult Consult Specialty:: Nephrology Reason for Consultation:: HEYDI - History of Present Illness Chief Complaint: sent in from [facility] for hypotension History of Present Illness: Pt is a 67 year old male with pmhx of ckd, bladder cancer, a-fib, CHFn HTN and CAD who was sent in from [place] for hypotension. He was discharged from the hospital yesterday. He was found to be in acute renal failure. He was also found to be hyperkalemic. He has received 4 liters of saline so far. He remained hypotensive. He was admitted to the ICU for pressors. - History Source History Provided By: Patient, Medical Record - Past Medical History Cardio/Vascular: Yes: AFIB, CAD, HTN, Hyperlipdemia Pulmonary: Yes: Sleep Apnea (rule out) Renal/: Yes: Renal Inusuff, Cancer (bladder) Endocrine: Yes: Diabetes Mellitus - Past Surgical History Past Surgical History: Yes: Stent - Alcohol/Substance Use Hx Alcohol Use: No History of Substance Use: reports: None - Smoking History Smoking history: Never smoked Have you smoked in the past 12 months: No Aproximately how many cigarettes per day: 0 - Social History ADL: Independent History of Recent Travel: Yes ([place]) Home Medications - Allergies Allergies/Adverse Reactions: Allergies Allergy/AdvReac Type Severity Reaction Status Date / Time No Known Allergies Allergy Verified 10/27/17 23:31 - Home Medications Home Medications: Ambulatory Orders Aspirin [Aspirin EC] 81 mg PO DAILY 08/25/17 Citalopram Hydrobromide [Citalopram HBr] 10 mg PO DAILY 08/25/17 Clopidogrel Bisulfate [Plavix] 75 mg PO DAILY 08/25/17 Oxycodone HCl/Acetaminophen [Endocet 5-325 Tablet] 1 each PO Q6H PRN 08/25/17 Pantoprazole Sodium [Protonix] 40 mg PO DAILY 08/25/17 Acetaminophen [Tylenol .Regular Strength -] 650 mg PO Q6H PRN #120 tablet MDD 6 09/03/17 Docusate Sodium [Colace -] 300 mg PO HS #90 capsule 09/03/17 Lisinopril [Prinivil] 2.5 mg PO DAILY #30 tablet 09/03/17 Metoprolol Succinate [Toprol XL -] 50 mg PO DAILY #30 tab.sr.24h 09/03/17 Spironolactone [Aldactone -] 25 mg PO DAILY #30 tablet 09/03/17 Warfarin Sodium [Coumadin] 4 mg PO HS #20 tablet MDD 1 11/03/17 Family Disease History - Family Disease History Family History: Denies Review of Systems - Review of Systems Constitutional: reports: Chills, Malaise Eyes: reports: No Symptoms HENT: reports: No Symptoms Neck: reports: No Symptoms Cardiovascular: reports: No Symptoms Respiratory: reports: No Symptoms Genitourinary: reports: Other (ileal conduit) Musculoskeletal: reports: No Symptoms Neurological: reports: Confusion Physical Exam Vital Signs: Vital Signs Temperature 98.9 F 11/05/17 15:36 Pulse Rate 104 H 11/05/17 15:36 Respiratory Rate 22 H 11/05/17 15:36 Blood Pressure 72/57 L 11/05/17 15:36 O2 Sat by Pulse Oximetry (%) 100 11/05/17 14:59 Constitutional: Yes: Calm Eyes: Yes: Conjunctiva Clear HENT: Yes: Atraumatic Neck: Yes: Supple Cardiovascular: Yes: S1, S2 Respiratory: Yes: CTA Bilaterally Gastrointestinal: Yes: Soft Renal/: Yes: Other (ileal conduit) Musculoskeletal: Yes: Back Pain Neurological: Yes: Confusion Psychiatric: Yes: Oriented Labs: CBC, BMP 11/05/17 08:55 11/05/17 08:55 Imaging - Results Chest X-ray: Report Reviewed Assessment/Plan Current Medications Generic Name Dose Route Start Last Admin Trade Name Freq PRN Reason Stop Dose Admin Acetaminophen 1,000 mg 11/05/17 14:49 Ofirmev Injection - IVPB Q6H PRN Pain 1-7 Aspirin 81 mg 11/06/17 10:00 Ecotrin - PO DAILY [facility] Chlorhexidine Gluconate 1 applic 11/05/17 22:00 Hibiclens For Decolonization - TP HS [facility] Clopidogrel Bisulfate 75 mg 11/06/17 10:00 Plavix - PO DAILY [facility] Heparin Sodium (Porcine) 5,000 unit 11/05/17 22:00 Heparin - SQ TID [facility] Norepinephrine Bitartrate 4, 500 mls @ 37.5 mls/hr 11/05/17 14:45 000 mcg/ Dextrose IV TITR ANGELITA Protocol 5 MCG/MIN Sodium Chloride 1,000 mls @ 75 mls/hr 11/05/17 14:45 Normal Saline - IV ASDIR [facility] Insulin Aspart 0 vial 11/05/17 16:30 Novolog Vial Sliding Scale - SQ ACHS [facility] Protocol Mupirocin 1 applic 11/05/17 22:00 Bactroban Ointment (For Decolonization) - NS 11/10/17 21:59 BID [facility] Pantoprazole Sodium 40 mg 11/05/17 14:45 Protonix Iv IVPUSH DAILY [facility] Impression 1. CKD 2. altered mental status 3. a-fib 4. DM 5. HTN 6. hx bladder cancer 7. leukocytosis 8. sepsis 9. hyperkalemia 10. heydi Plan - cont with fluids - cont with pressors for a map of 65 - repeat labs - discussed with ICU team - avoid nsaids - monitor lytes - ileal conduit care - hold yaima -admit to ICU Dr Baltazar
[2017-11-05] MEDS: PANTOPRAZOLE SODIUM 40 MG VIAL IVPUSH SCH (16:13)
--- NOTE | 2017-11-05 16:24 | CON.ID ---
Consult Consult Specialty:: infectious disease Referred by:: dr thompson Reason for Consultation:: septic shock - History of Present Illness Chief Complaint: hypotension History of Present Illness: just discharged from hospital yesterday after admission for lethargy historyof metastatic bladder cancer received 3 liters ivf in Ed started on pressors ctscan abd and pelvis shows increased hydronephrosis - History Source History Provided By: Medical Record Limitations to Obtaining History: Clinical Condition - Past Medical History Cardio/Vascular: Yes: AFIB, CAD, HTN, Hyperlipdemia Pulmonary: Yes: Sleep Apnea (rule out) Renal/: Yes: Renal Inusuff, Cancer (bladder) Endocrine: Yes: Diabetes Mellitus - Past Surgical History Past Surgical History: Yes: Stent - Alcohol/Substance Use Hx Alcohol Use: No History of Substance Use: reports: None - Smoking History Smoking history: Never smoked Have you smoked in the past 12 months: No Aproximately how many cigarettes per day: 0 - Social History ADL: Independent History of Recent Travel: Yes ([place]) Home Medications - Allergies Allergies/Adverse Reactions: Allergies Allergy/AdvReac Type Severity Reaction Status Date / Time No Known Allergies Allergy Verified 10/27/17 23:31 - Home Medications Home Medications: Ambulatory Orders Aspirin [Aspirin EC] 81 mg PO DAILY 08/25/17 Citalopram Hydrobromide [Citalopram HBr] 10 mg PO DAILY 08/25/17 Clopidogrel Bisulfate [Plavix] 75 mg PO DAILY 08/25/17 Oxycodone HCl/Acetaminophen [Endocet 5-325 Tablet] 1 each PO Q6H PRN 08/25/17 Pantoprazole Sodium [Protonix] 40 mg PO DAILY 08/25/17 Acetaminophen [Tylenol .Regular Strength -] 650 mg PO Q6H PRN #120 tablet MDD 6 09/03/17 Docusate Sodium [Colace -] 300 mg PO HS #90 capsule 09/03/17 Lisinopril [Prinivil] 2.5 mg PO DAILY #30 tablet 09/03/17 Metoprolol Succinate [Toprol XL -] 50 mg PO DAILY #30 tab.sr.24h 09/03/17 Spironolactone [Aldactone -] 25 mg PO DAILY #30 tablet 09/03/17 Warfarin Sodium [Coumadin] 4 mg PO HS #20 tablet MDD 1 11/03/17 Family Disease History - Family Disease History Family History: Unable to Obtain Physical Exam Vital Signs: Vital Signs Temperature 98.9 F 11/05/17 15:36 Pulse Rate 104 H 11/05/17 15:50 Respiratory Rate 22 H 11/05/17 15:36 Blood Pressure 72/57 L 11/05/17 15:50 O2 Sat by Pulse Oximetry (%) 100 11/05/17 14:59 Constitutional: Yes: No Distress, Calm Eyes: Yes: Conjunctiva Clear HENT: Yes: Atraumatic, Normocephalic Neck: Yes: Supple Cardiovascular: Yes: Regular Rate and Rhythm Respiratory: Yes: Regular, CTA Bilaterally Gastrointestinal: Yes: Normal Bowel Sounds, Soft ...Rectal Exam: Yes: Deferred Extremities: Yes: WNL Labs: CBC, BMP 11/05/17 08:55 11/05/17 08:55 Imaging - Results Chest X-ray: Report Reviewed, Image Reviewed Cat Scan: Report Reviewed Problem List - Problems (1) Sepsis Code(s): A41.9 - SEPSIS, UNSPECIFIED ORGANISM Qualifiers: Sepsis type: sepsis due to unspecified organism Qualified Code(s): A41.9 - Sepsis, unspecified organism (2) Hydronephrosis Code(s): N13.30 - UNSPECIFIED HYDRONEPHROSIS (3) UTI (urinary tract infection) Code(s): N39.0 - URINARY TRACT INFECTION, SITE NOT SPECIFIED Qualifiers: Urinary tract infection type: acute cystitis Hematuria presence: with hematuria Qualified Code(s): N30.01 - Acute cystitis with hematuria (4) Supratherapeutic INR Code(s): R79.1 - ABNORMAL COAGULATION PROFILE (5) 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 new adrenal mass agree with adding steroids overall prognosis is poor
--- NOTE | 2017-11-05 16:24 | CON.ID ---
Consult Consult Specialty:: infectious diseases Reason for Consultation:: septic shock,uti - Past Medical History Cardio/Vascular: Yes: AFIB, CAD, HTN, Hyperlipdemia Pulmonary: Yes: Sleep Apnea (rule out) Renal/: Yes: Renal Inusuff, Cancer (bladder) Endocrine: Yes: Diabetes Mellitus - Past Surgical History Past Surgical History: Yes: Stent - Alcohol/Substance Use Hx Alcohol Use: No History of Substance Use: reports: None - Smoking History Smoking history: Never smoked Have you smoked in the past 12 months: No Aproximately how many cigarettes per day: 0 - Social History ADL: Independent History of Recent Travel: Yes ([place]) Home Medications - Allergies Allergies/Adverse Reactions: Allergies Allergy/AdvReac Type Severity Reaction Status Date / Time No Known Allergies Allergy Verified 10/27/17 23:31 - Home Medications Home Medications: Ambulatory Orders Aspirin [Aspirin EC] 81 mg PO DAILY 08/25/17 Citalopram Hydrobromide [Citalopram HBr] 10 mg PO DAILY 08/25/17 Clopidogrel Bisulfate [Plavix] 75 mg PO DAILY 08/25/17 Oxycodone HCl/Acetaminophen [Endocet 5-325 Tablet] 1 each PO Q6H PRN 08/25/17 Pantoprazole Sodium [Protonix] 40 mg PO DAILY 08/25/17 Acetaminophen [Tylenol .Regular Strength -] 650 mg PO Q6H PRN #120 tablet MDD 6 09/03/17 Docusate Sodium [Colace -] 300 mg PO HS #90 capsule 09/03/17 Lisinopril [Prinivil] 2.5 mg PO DAILY #30 tablet 09/03/17 Metoprolol Succinate [Toprol XL -] 50 mg PO DAILY #30 tab.sr.24h 09/03/17 Spironolactone [Aldactone -] 25 mg PO DAILY #30 tablet 09/03/17 Warfarin Sodium [Coumadin] 4 mg PO HS #20 tablet MDD 1 11/03/17 Physical Exam Vital Signs: Vital Signs Temperature 98.9 F 11/05/17 15:36 Pulse Rate 104 H 11/05/17 15:50 Respiratory Rate 22 H 11/05/17 15:36 Blood Pressure 72/57 L 11/05/17 15:50 O2 Sat by Pulse Oximetry (%) 100 11/05/17 14:59 Labs: CBC, BMP 11/05/17 08:55 11/05/17 08:55
[2017-11-05] MEDS: HYDROCORTISONE SOD SUCCINATE 100 MG/2 ML VIAL IVPB SCH ×2 (16:28→21:03)
[2017-11-05] MEDS ORDERED: INSULIN SLIDING SCALE (NOVOLOG) 1 VIAL SQ SCH (16:30)
[2017-11-05] MEDS ORDERED: CASPOFUNGIN ACETATE 70 MG in SODIUM CHLORIDE 250 ML IVPB ONE (17:15)
[2017-11-05] MEDS ORDERED: PIPERACILLIN/TAZOBACTAM 3.375 GM VIAL IVPB ONE (17:35)
[2017-11-05] MEDS ORDERED: DEXTROSE 5%-WATER - 50 ML IVPB ONE (17:35)
[2017-11-05] MEDS: PIPERACILLIN/TAZOB 3.375 GM 3.375 GM in DEXTROSE 5%-WATER - 50 ML IVPB SCH (17:36)
[2017-11-05 18:13] LABS: ANION GAP 11 MMOL/L (8-16); BLOOD UREA NITROGEN 41 mg/dL (7-18); CHLORIDE 108 mmol/L (98-107); CO2 16 mmol/L (21-32); CREATININE 1.3 mg/dL (0.55-1.3); GLUCOSE,RANDOM 168 mg/dL (74-106); POTASSIUM 4.2 mmol/L (3.5-5.1); SODIUM 135 mmol/L (136-145)
[2017-11-05] MEDS: HEPARIN NA (PORCINE) 5,000 UNITS/ML 1ML VIAL SQ SCH (21:04)
[2017-11-05] MEDS: CHLORHEXIDINE GLUCONATE 4% CLEANSER FOR DECOLONIZATION TP SCH (21:06)
[2017-11-05] MEDS: MUPIROCIN 2% TOPICAL OINTMENT FOR DECOLONIZATION NS SCH (21:07)
--- NOTE | 2017-11-05 21:15 | PN ---
Repeat PE for Septic Shock - Vital Signs Vital Signs: Vital Signs Temperature 99.8 F H 11/05/17 20:00 Pulse Rate 105 H 11/05/17 20:00 Respiratory Rate 20 11/05/17 20:00 Blood Pressure 113/79 11/05/17 20:00 O2 Sat by Pulse Oximetry (%) 100 11/05/17 20:39 I have reviewed the most recent vital signs: Yes - PE CV for Spetic Shock: S1, S2 Lungs: Lungs Clear, Normal Breath Sounds Vascular: Left Radial: 2+, Right Radial: 2+, Left Doralis Pedis: 1+, Right Dorsalis Pedis: 1+ Capillary Refill: <3 seconds Skin exam: Pale (still requires vasopressors )
[2017-11-05] MEDS: INSULIN SLIDING SCALE (NOVOLOG) 1 VIAL SQ SCH (21:20)
[2017-11-06] MEDS ORDERED: PIPERACILLIN/TAZOBACTAM 3.375 GM VIAL IVPB ONE ×3 (00:55→17:38)
[2017-11-06] MEDS ORDERED: DEXTROSE 5%-WATER - 50 ML IVPB ONE ×3 (00:55→17:38)
[2017-11-06] MEDS: PIPERACILLIN/TAZOB 3.375 GM 3.375 GM in DEXTROSE 5%-WATER - 50 ML IVPB SCH ×3 (01:02→17:43)
[2017-11-06] MEDS: HYDROCORTISONE SOD SUCCINATE 100 MG/2 ML VIAL IVPB SCH ×3 (02:22→21:07)
[2017-11-06] MEDS: HEPARIN NA (PORCINE) 5,000 UNITS/ML 1ML VIAL SQ SCH ×3 (06:37→21:07)
[2017-11-06] MEDS: INSULIN SLIDING SCALE (NOVOLOG) 1 VIAL SQ SCH ×4 (06:37→21:23)
[2017-11-06 06:46] LABS: BASO % 0.1 % (0-2.0); HEMATOCRIT 34.2 % (35.4-49); HEMOGLOBIN 10.7 GM/dL (11.7-16.9); LYMPH % 1.9 % (8-40); MCH 26.1 pg (25.7-33.7); MCHC 31.2 g/dl (32.0-35.9); MEAN CELL VOLUME 83.5 fl (80-96); MEAN PLT VOLUME 9.5 fl (7.5-11.1); MONO % 3.2 % (3.8-10.2); NEUT % 94.8 % (42.8-82.8); PLATELET COUNT 413 K/MM3 (134-434); RDW 16.3 % (11.9-15.9); WHITE BLOOD COUNT 21.3 K/mm3 (4.0-10.0)
[2017-11-06 06:50] LABS: PROTHROMBIN TIME (PATIENT) 77.3 SEC (9.7-13.0)
[2017-11-06 06:53] LABS: ACTIVATED PTT 40.2 SECONDS (25.2-36.5)
[2017-11-06 06:58] LABS: INR 6.84 (0.83-1.09)
[2017-11-06 07:50] LABS: ALBUMIN 1.8 g/dl (3.4-5.0); ALK PHOS 202 U/L (45-117); ANION GAP 10 MMOL/L (8-16); BILIRUBIN,TOTAL 0.4 mg/dL (0.2-1); BLOOD UREA NITROGEN 33 mg/dL (7-18); CALCIUM 8.1 mg/dL (8.5-10.1); CHLORIDE 109 mmol/L (98-107); CO2 16 mmol/L (21-32); CREATININE 1.2 mg/dL (0.55-1.3); GLUCOSE,RANDOM 152 mg/dL (74-106); MAGNESIUM 1.9 mg/dL (1.8-2.4); PHOSPHOROUS 3.5 mg/dL (2.5-4.9); POTASSIUM 4.3 mmol/L (3.5-5.1); SGOT/AST 14 U/L (15-37); SGPT/ALT 20 U/L (13-61); SODIUM 135 mmol/L (136-145); TOT PROT 5.7 g/dl (6.4-8.2)
[2017-11-06] MEDS ORDERED: SODIUM CHLORIDE 1,000 ML IV SCH (08:14)
[2017-11-06] MEDS: SODIUM CHLORIDE 1,000 ML IV SCH (08:15)
--- NOTE | 2017-11-06 08:24 | CONSULT ---
Consult - text type - Consultation Consultation Note: CC: urosepsis with metastatic TCC s/p radical cystectomy and ileal conduit HPI: Patient has had recurrent episodes of urosepsis. Patient came in due to hypotension. Renal function has normalized with hydration. Patient is currently on levophed and is comfortable. The patient denies nausea/vomiting/ renal colic PE ileastomy draining clear urine no CVAT abdomen is soft and nontender wbc 21.[address] scan reviewed blood cultures pending impression urosepsis metastatic TCC s/p radical cystectomy and ileal conduit mild-moderate right hydronephrosis plan continue antibiotics as per ID follow renal function consideration for a right percutaneous nephrostomy if there is a change in renal function
--- NOTE | 2017-11-06 09:26 | PN ---
Progress Note (short form) - Note Progress Note: awake and alert pressors beiing tapered off quite comfortable Vital Signs Period Temp Pulse Resp BP Sys/Maynard Pulse Ox Last 24 Hr 98.3 F-99.8 F 96-130 16-24 72-124/55-88 92-100 cor-rrr lungs clear abd soft,nt +ileostomy-urine clear ext no edema CBC, BMP 11/06/17 05:30 11/06/17 05:30 Microbiology 11/05/17 08:55 Blood - Peripheral Venous Blood Culture - Preliminary NO GROWTH OBTAINED AFTER 24 HOURS, INCUBATION TO CONTINUE FOR 4 DAYS. 11/05/17 08:55 Blood - Peripheral Venous Blood Culture - Preliminary NO GROWTH OBTAINED AFTER 24 HOURS, INCUBATION TO CONTINUE FOR 4 DAYS. urine culture pending Current Medications Acetaminophen (Ofirmev Injection -) 1,000 mg IVPB Q6H PRN PRN Reason: Pain 1-7 Aspirin (Ecotrin -) 81 mg PO DAILY [facility] Chlorhexidine Gluconate (Hibiclens For Decolonization -) 1 applic TP HS ANGELITA Last Admin: 11/05/17 21:06 Dose: 1 applic Clopidogrel Bisulfate (Plavix -) 75 mg PO DAILY [facility] Heparin Sodium (Porcine) (Heparin -) 5,000 unit SQ TID ANGELITA Last Admin: 11/06/17 06:37 Dose: 5,000 unit Hydrocortisone Sodium Succinate (Solu-Cortef -) 50 mg IVPB Q6H-IV ANGELITA Last Admin: 11/06/17 02:22 Dose: 50 mg Norepinephrine Bitartrate 4, (000 mcg/ Dextrose) 500 mls @ 37.5 mls/hr IV TITR ANGELITA; Protocol Last Admin: 11/05/17 15:50 Dose: 5 mcg/min, 37.5 mls/hr Piperacillin Sod/Tazobactam (Sod 3.375 gm/ Dextrose) 50 mls @ 100 mls/hr IVPB Q8H-IV ANGELITA; Protocol Last Admin: 11/06/17 01:02 Dose: 100 mls/hr Sodium Chloride (Normal Saline -) 1,000 mls @ 125 mls/hr IV ASDIR ANGELITA Insulin Aspart (Novolog Vial Sliding Scale -) 1 vial SQ ACHS [facility]; Protocol Last Admin: 11/06/17 06:37 Dose: 2 units Mupirocin (Bactroban Ointment (For Decolonization) -) 1 applic NS BID [facility] Stop: 11/10/17 21:59 Last Admin: 11/05/17 21:07 Dose: 1 applic Pantoprazole Sodium (Protonix Iv) 40 mg IVPUSH DAILY [facility] Last Admin: 11/05/17 16:13 Dose: 40 mg a/p sepsis- most likely secondary to UTI/hydronephrosis suspected adrenal insufficiency due to adrenal mass (new) metastatic bladder cancer CAD- s/p stent leukocytosis most likely infection and steroids Problem List - Problems (1) Sepsis Code(s): A41.9 - SEPSIS, UNSPECIFIED ORGANISM Qualifiers: Sepsis type: sepsis due to unspecified organism Qualified Code(s): A41.9 - Sepsis, unspecified organism (2) Hydronephrosis Code(s): N13.30 - UNSPECIFIED HYDRONEPHROSIS (3) UTI (urinary tract infection) Code(s): N39.0 - URINARY TRACT INFECTION, SITE NOT SPECIFIED Qualifiers: Urinary tract infection type: acute cystitis Hematuria presence: with hematuria Qualified Code(s): N30.01 - Acute cystitis with hematuria (4) Supratherapeutic INR Code(s): R79.1 - ABNORMAL COAGULATION PROFILE (5) 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
[2017-11-06] MEDS: CLOPIDOGREL BISULFATE 75 MG TABLET (FP) PO SCH (10:03)
[2017-11-06] MEDS: PANTOPRAZOLE SODIUM 40 MG VIAL IVPUSH SCH (10:03)
[2017-11-06] MEDS: ASPIRIN COATED 81 MG TABLET.EC PO SCH (10:03)
[2017-11-06] MEDS: MUPIROCIN 2% TOPICAL OINTMENT FOR DECOLONIZATION NS SCH ×2 (10:04→21:09)
--- NOTE | 2017-11-06 10:17 | PN ---
Progress Note, Physician History of Present Illness: 67 y.o. M w/ PMHx. of A.Fib (on warfarin), sCHF, CAD, HTN, GERD, s/p cystectomy and ileal conduit for Metastatic Bladder Ca (Lungs, Liver, L2-L4 vertebrae and right adrenal gland), and recent (discharged 11/04/17) hospital admission for UTI( completed Amoxicillin for E.Coli and Enterrococcus Faecium) presents to the ED with hypotension, tachycardia and generalized weakness. - Current Medication List Current Medications: Active Medications Acetaminophen (Ofirmev Injection -) 1,000 mg IVPB Q6H PRN PRN Reason: Pain 1-7 Aspirin (Ecotrin -) 81 mg PO DAILY ANGELITA Last Admin: 11/06/17 10:03 Dose: 81 mg Chlorhexidine Gluconate (Hibiclens For Decolonization -) 1 applic TP HS ANGELITA Last Admin: 11/05/17 21:06 Dose: 1 applic Clopidogrel Bisulfate (Plavix -) 75 mg PO DAILY ANGELITA Last Admin: 11/06/17 10:03 Dose: 75 mg Heparin Sodium (Porcine) (Heparin -) 5,000 unit SQ TID ANGELITA Last Admin: 11/06/17 06:37 Dose: 5,000 unit Hydrocortisone Sodium Succinate (Solu-Cortef -) 50 mg IVPB Q6H-IV ANGELITA Last Admin: 11/06/17 10:03 Dose: 50 mg Norepinephrine Bitartrate 4, (000 mcg/ Dextrose) 500 mls @ 37.5 mls/hr IV TITR ANGELITA; Protocol Last Admin: 11/05/17 15:50 Dose: 5 mcg/min, 37.5 mls/hr Piperacillin Sod/Tazobactam (Sod 3.375 gm/ Dextrose) 50 mls @ 100 mls/hr IVPB Q8H-IV ANGELITA; Protocol Last Admin: 11/06/17 10:05 Dose: 100 mls/hr Sodium Chloride (Normal Saline -) 1,000 mls @ 125 mls/hr IV ASDIR ANGELITA Last Admin: 11/06/17 08:15 Dose: 125 mls/hr Insulin Aspart (Novolog Vial Sliding Scale -) 1 vial SQ ACHS ANGELITA; Protocol Last Admin: 11/06/17 06:37 Dose: 2 units Mupirocin (Bactroban Ointment (For Decolonization) -) 1 applic NS BID ANGELITA Stop: 11/10/17 21:59 Last Admin: 11/06/17 10:04 Dose: 1 applic Pantoprazole Sodium (Protonix Iv) 40 mg IVPUSH DAILY [facility] Last Admin: 11/06/17 10:03 Dose: 40 mg - Objective Vital Signs: Vital Signs Temperature 98.3 F 11/06/17 06:00 Pulse Rate 126 H 11/06/17 08:00 Respiratory Rate 18 11/06/17 09:00 Blood Pressure 111/72 11/06/17 08:00 O2 Sat by Pulse Oximetry (%) 100 11/06/17 09:00 Cardiovascular: Yes: S1, S2 Respiratory: Yes: Regular, CTA Bilaterally Gastrointestinal: Yes: Normal Bowel Sounds, Soft. No: Tenderness Labs: CBC, BMP 11/06/17 05:30 11/06/17 05:30 INR, PTT INR 6.84 (0.83-1.09) H* 11/06/17 05:30 Problem List - Problems (1) Adrenal mass Assessment/Plan: on Hydrocortisone 50mg Q6H -Endo consult Code(s): E27.9 - DISORDER OF ADRENAL GLAND, UNSPECIFIED (2) Sepsis Assessment/Plan: -Septic Shock 2/2 complicated UTI UA positive for bacteria, yeast, WBCs and 3+ LE received 1 dose of Vanc and Zosyn in ED, will D/C Vanc at this time per ID Given loading dose of Cancidas(Capsofungin) 70mg. Will reassess tomorrow if we need to continue with 50mg maintenance dose. f/u Urine Cx. and BCx. ID consult appreciated Code(s): A41.9 - SEPSIS, UNSPECIFIED ORGANISM Qualifiers: Sepsis type: sepsis due to unspecified organism Qualified Code(s): A41.9 - Sepsis, unspecified organism (3) Atrial fibrillation Assessment/Plan: Hold warfarin as INR is supra therapeutic to 4.83 Hold Metoprolol as Pt. is hypotensive on Levophed Code(s): I48.91 - UNSPECIFIED ATRIAL FIBRILLATION Qualifiers: Atrial fibrillation type: persistent Qualified Code(s): I48.1 - Persistent atrial fibrillation (4) CAD (coronary artery disease) Assessment/Plan: -Hypotension 2/2 septic shock monitor CVP on Levophed @ 2mcg Hold Spironolactone, Lisinopril and Metoprolol c/w ASA and Plavix Troponin - EKG appreciated: Mavis w/ RVR, Code(s): I25.10 - ATHSCL HEART DISEASE OF [place] CORONARY ARTERY W/O ANG PCTRS Qualifiers: Coronary Disease-Associated Artery/Lesion type: [place] artery [place] vs. 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 Ruddy Mcguire) Nephrology Consult appreciated (Dr. Baltazar) Code(s): C67.9 - MALIGNANT NEOPLASM OF BLADDER, UNSPECIFIED; C78.7 - SECONDARY MALIG NEOPLASM OF LIVER AND INTRAHEPATIC BILE DUCT (7) Diabetes Code(s): E11.9 - TYPE 2 DIABETES MELLITUS WITHOUT COMPLICATIONS
[2017-11-06] MEDS ORDERED: MORPHINE SULFATE 2 MG/ML VIAL IVPUSH PRN (11:27)
--- NOTE | 2017-11-06 12:11 | PN ---
Teaching Attending Note Name of Resident: Durga Crystal ATTENDING PHYSICIAN STATEMENT I saw and evaluated the patient. I reviewed the resident's note and discussed the case with the resident. I agree with the resident's findings and plan as documented. SUBJECTIVE: Patient seen and examined in the ICU. Remains on NE @ 2 mcq for hemodynamic support. Awake and responsive. Reports back pain. No CP or SOB. CXR: No gross change Intake & Output 11/03/17 11/04/17 11/05/17 11/06/17 23:59 23:59 23:59 23:59 Intake Total 3287.5 642.5 Output Total 1100 800 Balance 2187.5 -157.5 Weight 184 lb 11.958 oz 184 lb 5 oz Last Vital Signs Temp Pulse Resp BP Pulse Ox 98 F 118 H 22 H 107/61 100 11/06/17 10:00 11/06/17 11:00 11/06/17 11:00 11/06/17 11:00 11/06/17 09:00 Active Medications Acetaminophen (Ofirmev Injection -) 1,000 mg IVPB Q6H PRN PRN Reason: Pain 1-7 Aspirin (Ecotrin -) 81 mg PO DAILY [facility] Last Admin: 11/06/17 10:03 Dose: 81 mg Chlorhexidine Gluconate (Hibiclens For Decolonization -) 1 applic TP HS [facility]GEL[facility] Last Admin: 11/05/17 21:06 Dose: 1 applic Clopidogrel Bisulfate (Plavix -) 75 mg PO DAILY [facility] Last Admin: 11/06/17 10:03 Dose: 75 mg Fludrocortisone Acetate (Florinef -) 0.05 mg PO DAILY [facility] Heparin Sodium (Porcine) (Heparin -) 5,000 unit SQ TID [facility] Last Admin: 11/06/17 06:37 Dose: 5,000 unit Hydrocortisone Sodium Succinate (Solu-Cortef -) 50 mg IVPB Q6H-IV ANG[facility] Last Admin: 11/06/17 10:03 Dose: 50 mg Norepinephrine Bitartrate 4, (000 mcg/ Dextrose) 500 mls @ 37.5 mls/hr IV TITR ANGELITA; Protocol Last Admin: 11/05/17 15:50 Dose: 5 mcg/min, 37.5 mls/hr Piperacillin Sod/Tazobactam (Sod 3.375 gm/ Dextrose) 50 mls @ 100 mls/hr IVPB Q8H-IV ANGELITA; Protocol Last Admin: 11/06/17 10:05 Dose: 100 mls/hr Sodium Chloride (Normal Saline -) 1,000 mls @ 125 mls/hr IV ASDIR [facility]GEL[facility] Last Admin: 11/06/17 08:15 Dose: 125 mls/hr Insulin Aspart (Novolog Vial Sliding Scale -) 1 vial SQ ACHS ANGELITA; Protocol Last Admin: 11/06/17 06:37 Dose: 2 units Morphine Sulfate (Morphine Sulfate) 2 mg IVPUSH Q6H PRN PRN Reason: PAIN LEVEL 6-10 Mupirocin (Bactroban Ointment (For Decolonization) -) 1 applic NS BID ANGELITA Stop: 11/10/17 21:59 Last Admin: 11/06/17 10:04 Dose: 1 applic Pantoprazole Sodium (Protonix Iv) 40 mg IVPUSH DAILY [facility] Last Admin: 11/06/17 10:03 Dose: 40 mg GENERAL: Awake, alert, robbi confused EYES: Sclera anicteric, conjunctiva clear. No lid lag. EARS, NOSE, THROAT: Ears normal, nares patent, oropharynx clear without exudates. Moist mucous membranes. LUNGS: few rhonchi, (-) wheeze HEART: Tachycardia ABDOMEN: Soft, nontender, (+) BS, (+) RLQ ileal conduit MUSCULOSKELETAL: No CVA tenderness UPPER EXTREMITIES: 2+ pulses, cool to touch, pale, no clubbing. Cap refill <2 seconds. No peripheral edema. LOWER EXTREMITIES: 2+ pulses, warm, well-perfused. No calf tenderness. No peripheral edema. PSYCHIATRIC: Cooperative. SKIN: Warm, dry, normal turgor Laboratory Results - last 24 hr 11/05/17 11/05/17 11/05/17 08:55 10:46 16:45 WBC RBC Hgb Hct MCV MCH MCHC RDW Plt Count MPV Absolute Neuts (auto) Neutrophils % Lymphocytes % Monocytes % Eosinophils % Basophils % Nucleated RBC % PT with INR INR PTT (Actin FS) Sodium 135 L Potassium 4.2 Chloride 108 H Carbon Dioxide 16 L Anion Gap 11 BUN 41 H Creatinine 1.3 Creat Clearance w eGFR 54.73 POC Glucometer Random Glucose 168 H Lactic Acid 1.5 Calcium 8.0 L Phosphorus Magnesium Total Bilirubin AST ALT Alkaline Phosphatase Total Protein Albumin Random Vancomycin Blood Type A POSITIVE Antibody Screen Negative 11/05/17 11/05/17 11/06/17 17:07 21:18 05:30 WBC RBC Hgb Hct MCV MCH MCHC RDW Plt Count MPV Absolute Neuts (auto) Neutrophils % Lymphocytes % Monocytes % Eosinophils % Basophils % Nucleated RBC % PT with INR INR PTT (Actin FS) Sodium Potassium Chloride Carbon Dioxide Anion Gap BUN Creatinine Creat Clearance w eGFR POC Glucometer 61.29845 233.67187 Random Glucose Lactic Acid Calcium Phosphorus Magnesium Total Bilirubin AST ALT Alkaline Phosphatase Total Protein Albumin Random Vancomycin 10.8 L Blood Type Antibody Screen 11/06/17 11/06/17 11/06/17 05:30 05:30 05:30 WBC 21.3 H RBC 4.10 Hgb 10.7 L Hct 34.2 L MCV 83.5 MCH 26.1 MCHC 31.2 L RDW 16.3 H Plt Count 413 MPV 9.5 Absolute Neuts (auto) 20.2 H Neutrophils % 94.8 H Lymphocytes % 1.9 L D Monocytes % 3.2 L Eosinophils % 0.0 D Basophils % 0.1 Nucleated RBC % 0 PT with INR 77.30 H INR 6.84 H* PTT (Actin FS) 40.2 H Sodium 135 L Potassium 4.3 Chloride 109 H Carbon Dioxide 16 L Anion Gap 10 BUN 33 H Creatinine 1.2 Creat Clearance w eGFR > 60 POC Glucometer Random Glucose 152 H Lactic Acid Calcium 8.1 L Phosphorus 3.5 Magnesium 1.9 Total Bilirubin 0.4 AST 14 L ALT 20 Alkaline Phosphatase 202 H Total Protein 5.7 L Albumin 1.8 L Random Vancomycin Blood Type Antibody Screen 11/06/17 05:47 WBC RBC Hgb Hct MCV MCH MCHC RDW Plt Count MPV Absolute Neuts (auto) Neutrophils % Lymphocytes % Monocytes % Eosinophils % Basophils % Nucleated RBC % PT with INR INR PTT (Actin FS) Sodium Potassium Chloride Carbon Dioxide Anion Gap BUN Creatinine Creat Clearance w eGFR POC Glucometer [phone] Random Glucose Lactic Acid Calcium Phosphorus Magnesium Total Bilirubin AST ALT Alkaline Phosphatase Total Protein Albumin Random Vancomycin Blood Type Antibody Screen ASSESSMENT/PLAN: Sepsis / Septic Shock due to a source (?) component of adrenal insufficiency Afib CHF CAD GERD HTN S/P Cystectomy Ileal conduit Metastatic Bladder CA Recent UTI PLAN: Volume resuscitation CVP: 8 to 12 Taper NE as hemodynamics tolerate Hydrocortisone / Fludrocortisone Strict I & O Broad ABX per ID O2 as needed Follow cultures ICU monitoring for shock Dr Varma Critical care time spent in reviewing chart, evaluating patient and formulating plan - 36 minutes.
[2017-11-06 12:30] LABS: ANISOCYTOSIS 1+; MACROCYTOSIS 0; PLATELET ESTIMATE NORMAL
[2017-11-06] MEDS: FLUDROCORTISONE ACETATE 0.1 MG TABLET (FP) PO SCH (12:38)
--- NOTE | 2017-11-06 12:40 | PN ---
Physical Exam: SUBJECTIVE: Patient seen and examined. Pt. had BMm no bernadine blood or dark colored stool noted. Nurse was able to titrate Pt. off Levophed over night but BP declined progressively raymond to 80s/50s and Levophed was re-applied. Nurse was then able to titrate off Levophed this afternoon. Pt. endorses lower back pain. Pt. denies chest pain, abdominal pain, dizziness, SOB, palpitations or any other complaints at this time. OBJECTIVE: Vital Signs Period Temp Pulse Resp BP Sys/Maynard Pulse Ox Last 24 Hr 98 F-99.8 F 96-126 16-24 72-124/55-88 92-100 GENERAL: The patient is awake, alert, and fully oriented, lying in bed in no acute distress, Pt. jerks/twitches entire body in sleep. HEAD: Normal with no signs of gross trauma. EYES: PERRL, sclera anicteric, conjunctiva clear. No ptosis. ENT: Ears normal, nares patent, moist mucous membranes. LUNGS: Breath sounds equal, clear to auscultation bilaterally, no wheezes, no crackles, no accessory muscle use. HEART: Tachycardic, Irregular rate and rhythm, S1, S2 without murmur ABDOMEN: Soft, nontender, nondistended, normoactive bowel sounds, ileal conduit in place draining clear yellow urine EXTREMITIES: 2+ dorsal pedal pulses, warm, well-perfused, no edema, 3< seconds capillary refill, resting hand tremors, generalized weakness throughout limbs NEUROLOGICAL: Cranial nerves II through XII grossly intact. Normal speech, gait not assessed PSYCH: Normal mood, normal affect. SKIN: Warm, dry, normal turgor Laboratory Results - last 24 hr 11/05/17 11/05/17 11/05/17 10:46 16:45 17:07 WBC RBC Hgb Hct MCV MCH MCHC RDW Plt Count MPV Absolute Neuts (auto) Neutrophils % Lymphocytes % Monocytes % Eosinophils % Basophils % Nucleated RBC % PT with INR INR PTT (Actin FS) Sodium 135 L Potassium 4.2 Chloride 108 H Carbon Dioxide 16 L Anion Gap 11 BUN 41 H Creatinine 1.3 Creat Clearance w eGFR 54.73 POC Glucometer 61.17403 Random Glucose 168 H Lactic Acid 1.5 Calcium 8.0 L Phosphorus Magnesium Total Bilirubin AST ALT Alkaline Phosphatase Total Protein Albumin Random Vancomycin 11/05/17 11/06/17 11/06/17 21:18 05:30 05:30 WBC 21.3 H RBC 4.10 Hgb 10.7 L Hct 34.2 L MCV 83.5 MCH 26.1 MCHC 31.2 L RDW 16.3 H Plt Count 413 MPV 9.5 Absolute Neuts (auto) 20.2 H Neutrophils % 94.8 H Lymphocytes % 1.9 L D Monocytes % 3.2 L Eosinophils % 0.0 D Basophils % 0.1 Nucleated RBC % 0 PT with INR INR PTT (Actin FS) Sodium Potassium Chloride Carbon Dioxide Anion Gap BUN Creatinine Creat Clearance w eGFR POC Glucometer [phone] Random Glucose Lactic Acid Calcium Phosphorus Magnesium Total Bilirubin AST ALT Alkaline Phosphatase Total Protein Albumin Random Vancomycin 10.8 L 11/06/17 11/06/17 11/06/17 05:30 05:30 05:47 WBC RBC Hgb Hct MCV MCH MCHC RDW Plt Count MPV Absolute Neuts (auto) Neutrophils % Lymphocytes % Monocytes % Eosinophils % Basophils % Nucleated RBC % PT with INR 77.30 H INR 6.84 H* PTT (Actin FS) 40.2 H Sodium 135 L Potassium 4.3 Chloride 109 H Carbon Dioxide 16 L Anion Gap 10 BUN 33 H Creatinine 1.2 Creat Clearance w eGFR > 60 POC Glucometer 184.57171 Random Glucose 152 H Lactic Acid Calcium 8.1 L Phosphorus 3.5 Magnesium 1.9 Total Bilirubin 0.4 AST 14 L ALT 20 Alkaline Phosphatase 202 H Total Protein 5.7 L Albumin 1.8 L Random Vancomycin Active Medications Current Medications Acetaminophen (Ofirmev Injection -) 1,000 mg IVPB Q6H PRN PRN Reason: Pain 1-7 Aspirin (Ecotrin -) 81 mg PO DAILY [facility] Last Admin: 11/06/17 10:03 Dose: 81 mg Chlorhexidine Gluconate (Hibiclens For Decolonization -) 1 applic TP HS [facility] Last Admin: 11/05/17 21:06 Dose: 1 applic Clopidogrel Bisulfate (Plavix -) 75 mg PO DAILY [facility] Last Admin: 11/06/17 10:03 Dose: 75 mg Fludrocortisone Acetate (Florinef -) 0.05 mg PO DAILY [facility] Heparin Sodium (Porcine) (Heparin -) 5,000 unit SQ TID [facility] Last Admin: 11/06/17 06:37 Dose: 5,000 unit Hydrocortisone Sodium Succinate (Solu-Cortef -) 50 mg IVPB Q6H-IV [facility] Last Admin: 11/06/17 10:03 Dose: 50 mg Norepinephrine Bitartrate 4, (000 mcg/ Dextrose) 500 mls @ 37.5 mls/hr IV TITR ANGELITA; Protocol Last Admin: 11/05/17 15:50 Dose: 5 mcg/min, 37.5 mls/hr Piperacillin Sod/Tazobactam (Sod 3.375 gm/ Dextrose) 50 mls @ 100 mls/hr IVPB Q8H-IV ANGELITA; Protocol Last Admin: 11/06/17 10:05 Dose: 100 mls/hr Sodium Chloride (Normal Saline -) 1,000 mls @ 125 mls/hr IV ASDIR ANGELITA Last Admin: 11/06/17 08:15 Dose: 125 mls/hr Insulin Aspart (Novolog Vial Sliding Scale -) 1 vial SQ ACHS [facility]; Protocol Last Admin: 11/06/17 06:37 Dose: 2 units Morphine Sulfate (Morphine Sulfate) 2 mg IVPUSH Q6H PRN PRN Reason: PAIN LEVEL 6-10 Mupirocin (Bactroban Ointment (For Decolonization) -) 1 applic NS BID [facility] Stop: 11/10/17 21:59 Last Admin: 11/06/17 10:04 Dose: 1 applic Pantoprazole Sodium (Protonix Iv) 40 mg IVPUSH DAILY [facility] Last Admin: 11/06/17 10:03 Dose: 40 mg ASSESSMENT/PLAN: A 67 y.o. M w/ PMHx. of A.Fib (on warfarin), sCHF, CAD, HTN, GERD, s/p cystectomy and ileal conduit for Metastatic Bladder Ca (Lungs, Liver, L2-L4 vertebrae and right adrenal gland), and recent (discharged 11/04/17) hospital admission for UTI( completed Amoxicillin for E.Coli and Enterrococcus Faecium) presents to the ED with hypotension, tachycardia and generalized weakness. #Cardiovascular -Hypotension 2/2 septic shock and adrenal insufficiency D/c Levophed start Fludrocortisone 50mcg Daily monitor CVP, currecntly ~10 Increase Hydrocortisone to 100mg TID Central Line placed( RIJ) Use Lopressor 5mg to control heart rate until we restart home medications Hold Spironolactone and Lisinopril, Metoprolol will consider restarting in AM VBG appreciated Lactic Acid 2.4-->1.5 -CAD Hardware visible on CT scan c/w ASA and Plavix Troponin - EKG appreciated: A.Fib w/ RVR, QTc: 483, Monitor QTc, especially with QT prolonging drugs. -CHF Hold home Lasix Echo(10/28/17): severe global hypokinesis of LV, severe reduced LV function, normal LV size Cardiology consult appreciated (Dr. Alvarado) Strict Is & Os -A.Fib Hold warfarin as INR is supra therapeutic to 6.83, as per 2012 ACCP guidelines we can hold warfarin and monitor for bleeding. Vitamin K is not indicated at this time. If bleeding is noted can give 1-2.5mg oral Vitamin K. If severe bleeding is noted can give FFP as this acts faster. Hold Metoprolol as BP is hypotensive off Levophed #Endocrinology -Adrenal Insufficiency Consult with Endocrinology (Dr. Ortiz) appreciated- Recommends Hydrocortisone 100mg TID f/u TSH, free T4, T3, cortisol AM levels and PM levels. Normal AM(~6am) levels range from 10-20mcg/dL. Normal PM(after 4PM) levels range from 3-10mcg/dL c/w Fludrocortisone 50 mcg daily Increased hydrocortisone to 100mg TID #Pulmonology -Pulmonary Metastases CXR (11/05/17) confirmed pulmonary nodules, no acute pathology CT Scan (11/05/17): shows multiple mets to liver, lungs, worsening hydronephrosis , suspicious for distal ureteral strictures at conduit, worsening L2-L4 bone metastases, new right adrenal metastases stable #Urology -s/p cystectomy and ileal conduit for Metastatic Bladder Ca Started Oxycodone 5mg and 10mg for pain 4-6 and 7-10 respectively. S/p suprapubic catheter placement Urology Consult appreciated (Dr. Ruddy Mcguire)- if renal function continues to decline may need percutaneous nephrostomy tube, mild hydronephrosis is not concerning at this time Nephrology Consult appreciated (Dr. Baltazar) #Infectious Disease -Septic Shock 2/2 complicated UTI UCx. growing 100k CFUs Psuedomanas preliminarily UA positive for bacteria, yeast, WBCs and 3+ LE received 1 dose of Vanc and Zosyn in ED, will D/C Vanc at this time per ID Given loading dose of Cancidas(Capsofungin) 70mg. Will reassess tomorrow if we need to continue with 50mg maintenance dose. Did not give Diflucan as that would further increase warfarin levels which are already supratherapeutic c/w Zosyn 3.375- (renally dosed) random Vancomycin level: 10.8 f/u BCx. ID consult appreciated (Dr. Gaines) #Psychiatry -Depression stable hold Citalopram 10mg #F/E/N -c/w NS @ 125ml/hr -Strict Is & Os -monitor electrolytes and replete as necessary -NPO #PPx. -DVT Heparin SQ ASA Plavix Hold Warfarin as INR is supratherapeutic @ 6.84 -GI c/w IV Protonix 50mg Visit type - Emergency Visit Emergency Visit: Yes ED Registration Date: 11/05/17 Care time: The patient presented to the Emergency Department on the above date and was hospitalized for further evaluation of their emergent condition. - New Patient This patient is new to me today: No - Critical Care Critical Care patient: Yes Total Critical Care Time (in minutes): 36 Critical Care Statement: The care of this patient involved high complexity decision making to prevent further life threatening deterioration of the patient 's condition and/or to evaluate & treat vital organ system(s) failure or risk of failure. - Discharge Referral Referred to [facility] No
[2017-11-06] MEDS ORDERED: oxyCODONE HCL 5 MG TABLET PO PRN (13:30)
[2017-11-06] MEDS ORDERED: LACTATED RINGERS SOLUTION 1000 ML INFUS.BAG IV ONE ×2 (13:45→16:00)
[2017-11-06] MEDS ORDERED: METOPROLOL TARTRATE 5 MG/5 ML VIAL IVPUSH ONE (14:04)
[2017-11-06] MEDS ORDERED: METOPROLOL TARTRATE 5 MG/5 ML VIAL ONE (14:06)
--- NOTE | 2017-11-06 14:20 | CONSULT ---
Consult Consult Specialty:: endocrine Referred by:: dr.annabi baxter Reason for Consultation:: adrenal insuficiency - History of Present Illness Chief Complaint: weakness lethargic History of Present Illness: 67 YOM with h/o bladder CA with mets to lung, liver, and bone (delphine. vertebrae), s/p ileal conduit, A-fib (on warfarin, Plavix, and baby ASA), CHF, CAD, HTN, GERD, and depression who was BIBEMS from [facility] (where he was recently admitted ) who was found by care facility staff this morning half-off his bed and complaining of mid-back pain. They measured his BP to be 86/60, HR 77, RR 18, T 97.8. EMS reports that his pressures were actually in the 60s systolic during their care, and they placed a PIV and started a liter of NS. The patient himself has no complaints other than back pain denies nausea and vomiting,fever or chills, - History Source History Provided By: Patient - Past Medical History Cardio/Vascular: Yes: AFIB, CAD, HTN, Hyperlipdemia Pulmonary: Yes: Sleep Apnea (rule out) Renal/: Yes: Renal Inusuff, Cancer (bladder) Endocrine: Yes: Diabetes Mellitus - Past Surgical History Past Surgical History: Yes: Stent - Alcohol/Substance Use Hx Alcohol Use: No History of Substance Use: reports: None - Smoking History Smoking history: Never smoked Have you smoked in the past 12 months: No Aproximately how many cigarettes per day: 0 - Social History ADL: Independent History of Recent Travel: Yes ([place]) Home Medications - Allergies Allergies/Adverse Reactions: Allergies Allergy/AdvReac Type Severity Reaction Status Date / Time No Known Allergies Allergy Verified 10/27/17 23:31 - Home Medications Home Medications: Ambulatory Orders Aspirin [Aspirin EC] 81 mg PO DAILY 08/25/17 Citalopram Hydrobromide [Citalopram HBr] 10 mg PO DAILY 08/25/17 Clopidogrel Bisulfate [Plavix] 75 mg PO DAILY 08/25/17 Oxycodone HCl/Acetaminophen [Endocet 5-325 Tablet] 1 each PO Q6H PRN 08/25/17 Pantoprazole Sodium [Protonix] 40 mg PO DAILY 08/25/17 Acetaminophen [Tylenol .Regular Strength -] 650 mg PO Q6H PRN #120 tablet MDD 6 07/26/18 Docusate Sodium [Colace -] 300 mg PO HS #90 capsule 09/03/17 Lisinopril [Prinivil] 2.5 mg PO DAILY #30 tablet 09/03/17 Metoprolol Succinate [Toprol XL -] 50 mg PO DAILY #30 tab.sr.24h 09/03/17 Spironolactone [Aldactone -] 25 mg PO DAILY #30 tablet 09/03/17 Warfarin Sodium [Coumadin] 4 mg PO HS #20 tablet MDD 1 11/03/17 Review of Systems - Review of Systems Constitutional: reports: Lethargy, Weakness Eyes: reports: No Symptoms HENT: reports: Throat Pain Neck: reports: No Symptoms Cardiovascular: reports: Shortness of Breath Respiratory: reports: Exercise Intolerance, Orthopnea, SOB on Exertion Gastrointestinal: reports: Bloating, Nausea Genitourinary: reports: Hematuria, Urgency Breasts: reports: No Symptoms Reported Musculoskeletal: reports: Muscle Pain, Muscle Cramps, Muscle Weakness Endocrine: reports: Unexplained Weight Loss Physical Exam Vital Signs: Vital Signs Temperature 98 F 11/06/17 10:00 Pulse Rate 140 H 11/06/17 14:09 Respiratory Rate 16 11/06/17 12:00 Blood Pressure 90/58 L 11/06/17 14:09 O2 Sat by Pulse Oximetry (%) 100 11/06/17 09:00 Constitutional: Yes: Calm Eyes: Yes: EOM Intact HENT: Yes: Normocephalic Neck: Yes: Trachea Midline Respiratory: Yes: On Nasal O2, SOB, SOB on Exertion Gastrointestinal: Yes: Soft ...Rectal Exam: Yes: Deferred Renal/: Yes: Incontinence Breast(s): Yes: WNL Musculoskeletal: Yes: Back Pain, Joint Stiffness, Muscle Weakness Extremities: Yes: WNL, Cool Edema: No Neurological: Yes: Alert, Oriented Labs: CBC, BMP 11/06/17 05:30 11/06/17 05:30 Problem List - Problems (1) HEYDI (acute kidney injury) Code(s): N17.9 - ACUTE KIDNEY FAILURE, UNSPECIFIED (2) Adrenal mass Code(s): E27.9 - DISORDER OF ADRENAL GLAND, UNSPECIFIED (3) Hydronephrosis Code(s): N13.30 - UNSPECIFIED HYDRONEPHROSIS (4) Sepsis Code(s): A41.9 - SEPSIS, UNSPECIFIED ORGANISM Qualifiers: Sepsis type: sepsis due to unspecified organism Qualified Code(s): A41.9 - Sepsis, unspecified organism (5) Supratherapeutic INR Code(s): R79.1 - ABNORMAL COAGULATION PROFILE (6) Anemia Code(s): D64.9 - ANEMIA, UNSPECIFIED (7) Anxiety Code(s): F41.9 - ANXIETY DISORDER, UNSPECIFIED Assessment/Plan Current Active Problems HEYDI (acute kidney injury) (Acute) Adrenal mass (Acute) Hydronephrosis (Acute) Sepsis (Acute) Supratherapeutic INR (Acute) UTI (urinary tract infection) (Acute) adrenal insuficiency Abnormal Lab Results 11/05/17 11/06/17 11/06/17 16:45 05:30 05:30 WBC 21.3 H Hgb 10.7 L Hct 34.2 L MCHC 31.2 L RDW 16.3 H Absolute Neuts (auto) 20.2 H Neutrophils % 94.8 H Neutrophils % (Manual) 93.0 H Lymphocytes % 1.9 L D Lymphocytes % (Manual) 0.0 L Monocytes % 3.2 L PT with INR INR PTT (Actin FS) Sodium 135 L Chloride 108 H Carbon Dioxide 16 L BUN 41 H Random Glucose 168 H Calcium 8.0 L AST Alkaline Phosphatase Total Protein Albumin Random Vancomycin 10.8 L 11/06/17 11/06/17 05:30 05:30 WBC Hgb Hct MCHC RDW Absolute Neuts (auto) Neutrophils % Neutrophils % (Manual) Lymphocytes % Lymphocytes % (Manual) Monocytes % PT with INR 77.30 H INR 6.84 H* PTT (Actin FS) 40.2 H Sodium 135 L Chloride 109 H Carbon Dioxide 16 L BUN 33 H Random Glucose 152 H Calcium 8.1 L AST 14 L Alkaline Phosphatase 202 H Total Protein 5.7 L Albumin 1.8 L Random Vancomycin Laboratory Results - last 24 hr 11/05/17 11/05/17 11/05/17 16:45 17:07 21:18 WBC RBC Hgb Hct MCV MCH MCHC RDW Plt Count MPV Absolute Neuts (auto) Neutrophils % Neutrophils % (Manual) Band Neutrophils % Lymphocytes % Lymphocytes % (Manual) Monocytes % Monocytes % (Manual) Eosinophils % Eosinophils % (Manual) Basophils % Basophils % (Manual) Myelocytes % (Man) Promyelocytes % (Man) Blast Cells % (Manual) Nucleated RBC % Metamyelocytes Hypochromia Platelet Estimate Polychromasia Poikilocytosis Anisocytosis Microcytosis Macrocytosis Sonja Cells PT with INR INR PTT (Actin FS) Sodium 135 L Potassium 4.2 Chloride 108 H Carbon Dioxide 16 L Anion Gap 11 BUN 41 H Creatinine 1.3 Creat Clearance w eGFR 54.73 POC Glucometer 61.64896 233.56113 Random Glucose 168 H Calcium 8.0 L Phosphorus Magnesium Total Bilirubin AST ALT Alkaline Phosphatase Total Protein Albumin Random Vancomycin 11/06/17 11/06/17 11/06/17 05:30 05:30 05:30 WBC 21.3 H RBC 4.10 Hgb 10.7 L Hct 34.2 L MCV 83.5 MCH 26.1 MCHC 31.2 L RDW 16.3 H Plt Count 413 MPV 9.5 Absolute Neuts (auto) 20.2 H Neutrophils % 94.8 H Neutrophils % (Manual) 93.0 H Band Neutrophils % 1.0 Lymphocytes % 1.9 L D Lymphocytes % (Manual) 0.0 L Monocytes % 3.2 L Monocytes % (Manual) 6 Eosinophils % 0.0 D Eosinophils % (Manual) 0.0 Basophils % 0.1 Basophils % (Manual) 0.0 Myelocytes % (Man) 0 Promyelocytes % (Man) 0 Blast Cells % (Manual) 0 Nucleated RBC % 0 Metamyelocytes 0 Hypochromia 0 Platelet Estimate Normal Polychromasia 1+ Poikilocytosis 1+ Anisocytosis 1+ Microcytosis 1+ Macrocytosis 0 Sonja Cells 1+ PT with INR 77.30 H INR 6.84 H* PTT (Actin FS) 40.2 H Sodium Potassium Chloride Carbon Dioxide Anion Gap BUN Creatinine Creat Clearance w eGFR POC Glucometer Random Glucose Calcium Phosphorus Magnesium Total Bilirubin AST ALT Alkaline Phosphatase Total Protein Albumin Random Vancomycin 10.8 L 11/06/17 11/06/17 11/06/17 05:30 05:47 12:34 WBC RBC Hgb Hct MCV MCH MCHC RDW Plt Count MPV Absolute Neuts (auto) Neutrophils % Neutrophils % (Manual) Band Neutrophils % Lymphocytes % Lymphocytes % (Manual) Monocytes % Monocytes % (Manual) Eosinophils % Eosinophils % (Manual) Basophils % Basophils % (Manual) Myelocytes % (Man) Promyelocytes % (Man) Blast Cells % (Manual) Nucleated RBC % Metamyelocytes Hypochromia Platelet Estimate Polychromasia Poikilocytosis Anisocytosis Microcytosis Macrocytosis Sonja Cells PT with INR INR PTT (Actin FS) Sodium 135 L Potassium 4.3 Chloride 109 H Carbon Dioxide 16 L Anion Gap 10 BUN 33 H Creatinine 1.2 Creat Clearance w eGFR > 60 POC Glucometer 184.71259 178.24387 Random Glucose 152 H Calcium 8.1 L Phosphorus 3.5 Magnesium 1.9 Total Bilirubin 0.4 AST 14 L ALT 20 Alkaline Phosphatase 202 H Total Protein 5.7 L Albumin 1.8 L Random Vancomycin plan: check cortisol level check acth check tsh free t4 steroid support solucortef 100mg tid florinef po
[2017-11-06] MEDS: NOREPINEPHRINE BITARTRATE 4,000 MCG in DEXTROSE 5%-WATER - 496 ML IV SCH (15:35)
--- NOTE | 2017-11-06 15:42 | PN ---
Progress Note, Physician History of Present Illness: Pt seen and examined at bedside. He is awake and appears comfortable. - Current Medication List Current Medications: Active Medications Acetaminophen (Ofirmev Injection -) 1,000 mg IVPB Q6H PRN PRN Reason: Pain 1-7 Aspirin (Ecotrin -) 81 mg PO DAILY [facility] Last Admin: 11/06/17 10:03 Dose: 81 mg Chlorhexidine Gluconate (Hibiclens For Decolonization -) 1 applic TP HS [facility] Last Admin: 11/05/17 21:06 Dose: 1 applic Clopidogrel Bisulfate (Plavix -) 75 mg PO DAILY [facility] Last Admin: 11/06/17 10:03 Dose: 75 mg Fludrocortisone Acetate (Florinef -) 0.05 mg PO DAILY [facility] Last Admin: 11/06/17 12:38 Dose: 0.05 mg Heparin Sodium (Porcine) (Heparin -) 5,000 unit SQ TID [facility] Last Admin: 11/06/17 14:59 Dose: 5,000 unit Hydrocortisone Sodium Succinate (Solu-Cortef -) 100 mg IVPB TID [facility] Norepinephrine Bitartrate 4, (000 mcg/ Dextrose) 500 mls @ 37.5 mls/hr IV TITR [facility]; Protocol Last Admin: 11/06/17 15:35 Dose: Not Given Piperacillin Sod/Tazobactam (Sod 3.375 gm/ Dextrose) 50 mls @ 100 mls/hr IVPB Q8H-IV [facility]; Protocol Last Admin: 11/06/17 10:05 Dose: 100 mls/hr Sodium Chloride (Normal Saline -) 1,000 mls @ 125 mls/hr IV ASDIR [facility] Last Admin: 11/06/17 08:15 Dose: 125 mls/hr Insulin Aspart (Novolog Vial Sliding Scale -) 1 vial SQ ACHS [facility]; Protocol Last Admin: 11/06/17 12:38 Dose: 2 units Mupirocin (Bactroban Ointment (For Decolonization) -) 1 applic NS BID [facility] Stop: 11/10/17 21:59 Last Admin: 11/06/17 10:04 Dose: 1 applic Oxycodone HCl (Roxicodone -) 5 mg PO Q4H PRN PRN Reason: PAIN LEVEL 4 - 6 Oxycodone HCl (Roxicodone -) 10 mg PO Q4H PRN PRN Reason: PAIN LEVEL 7 - 10 Pantoprazole Sodium (Protonix Iv) 40 mg IVPUSH DAILY [facility] Last Admin: 11/06/17 10:03 Dose: 40 mg - Objective Vital Signs: Vital Signs Temperature 98.8 F 11/06/17 14:00 Pulse Rate 140 H 11/06/17 14:09 Respiratory Rate 18 11/06/17 14:00 Blood Pressure 90/58 L 11/06/17 14:09 O2 Sat by Pulse Oximetry (%) 100 11/06/17 09:00 Constitutional: Yes: Calm Eyes: Yes: Conjunctiva Clear HENT: Yes: Atraumatic Neck: Yes: Supple Cardiovascular: Yes: S1, S2 Respiratory: Yes: CTA Bilaterally Gastrointestinal: Yes: Normal Bowel Sounds, Soft Genitourinary: Yes: Other (ileal conduit) Musculoskeletal: Yes: WNL Edema: No Neurological: Yes: Oriented Labs: CBC, BMP 11/06/17 05:30 11/06/17 05:30 INR, PTT INR 6.84 (0.83-1.09) H* 11/06/17 05:30 Assessment/Plan Current Medications Generic Name Dose Route Start Last Admin Trade Name Blayneq PRN Reason Stop Dose Admin Acetaminophen 1,000 mg 11/05/17 14:49 Ofirmev Injection - IVPB Q6H PRN Pain 1-7 Aspirin 81 mg 11/06/17 10:00 11/06/17 10:03 Ecotrin - PO 81 mg DAILY [facility] Administration Chlorhexidine Gluconate 1 applic 11/05/17 22:00 11/05/17 21:06 Hibiclens For Decolonization - TP 1 applic HS [facility] Administration Clopidogrel Bisulfate 75 mg 11/06/17 10:00 11/06/17 10:03 Plavix - PO 75 mg DAILY [facility] Administration Fludrocortisone Acetate 0.05 mg 11/06/17 12:15 11/06/17 12:38 Florinef - PO 0.05 mg DAILY [facility] Administration Heparin Sodium (Porcine) 5,000 unit 11/05/17 22:00 11/06/17 14:59 Heparin - SQ 5,000 unit TID [facility] Administration Hydrocortisone Sodium Succinate 100 mg 11/06/17 22:00 Solu-Cortef - IVPB TID [facility] Norepinephrine Bitartrate 4, 500 mls @ 37.5 mls/hr 11/05/17 14:45 11/06/17 15 :35 000 mcg/ Dextrose IV Not Given TITR [facility] Protocol 5 MCG/MIN Piperacillin Sod/Tazobactam 50 mls @ 100 mls/hr 11/05/17 18:00 11/06/17 10:05 Sod 3.375 gm/ Dextrose IVPB 100 mls/hr Q8H-IV [facility] Administration Protocol Sodium Chloride 1,000 mls @ 125 mls/hr 11/06/17 08:15 11/06/17 08:15 Normal Saline - IV 125 mls/hr ASDIR [facility] Administration Insulin Aspart 1 vial 11/05/17 22:00 11/06/17 12:38 Novolog Vial Sliding Scale - SQ 2 units ACHS [facility] Administration Protocol Mupirocin 1 applic 11/05/17 22:00 11/06/17 10:04 Bactroban Ointment (For Decolonization) - NS 11/10/17 21:59 1 applic BID [facility] Administration Oxycodone HCl 5 mg 11/06/17 13:30 Roxicodone - PO Q4H PRN PAIN LEVEL 4 - 6 Oxycodone HCl 10 mg 11/06/17 13:30 Roxicodone - PO Q4H PRN PAIN LEVEL 7 - 10 Pantoprazole Sodium 40 mg 11/05/17 14:45 11/06/17 10:03 Protonix Iv IVPUSH 40 mg DAILY [facility] Administration Impression 1. CKD 2. altered mental status 3. a-fib 4. DM 5. HTN 6. hx bladder cancer 7. leukocytosis 8. sepsis 9. hyperkalemia 10. chon Plan - bp is improving - cont steroids - follow cortisol levels - endocrine input appreciated - pressor requirements improved - avoid nsaids - monitor lytes - ileal conduit care - hold yaima Dr Baltazar
[2017-11-06 19:21] LABS: PROTHROMBIN TIME (PATIENT) 80.7 SEC (9.7-13.0)
[2017-11-06 20:11] LABS: INR 6.71 (0.83-1.09)
[2017-11-06] MEDS: oxyCODONE HCL 5 MG TABLET PO PRN (21:08)
[2017-11-06] MEDS: CHLORHEXIDINE GLUCONATE 4% CLEANSER FOR DECOLONIZATION TP SCH (21:10)
[2017-11-07] MEDS ORDERED: DEXTROSE 5%-WATER - 50 ML IVPB ONE ×3 (00:58→17:25)
[2017-11-07] MEDS ORDERED: PIPERACILLIN/TAZOBACTAM 3.375 GM VIAL IVPB ONE ×3 (00:58→17:25)
[2017-11-07] MEDS: PIPERACILLIN/TAZOB 3.375 GM 3.375 GM in DEXTROSE 5%-WATER - 50 ML IVPB SCH ×3 (01:40→17:34)
[2017-11-07] MEDS: HYDROCORTISONE SOD SUCCINATE 100 MG/2 ML VIAL IVPB SCH ×3 (05:19→21:27)
[2017-11-07] MEDS: HEPARIN NA (PORCINE) 5,000 UNITS/ML 1ML VIAL SQ SCH ×3 (05:19→21:27)
[2017-11-07 05:56] LABS: BASO % 0.1 % (0-2.0); EOS % 0.1 % (0-4.5); HEMOGLOBIN 9.6 GM/dL (11.7-16.9); LYMPH % 3.3 % (8-40); MCH 26.6 pg (25.7-33.7); MEAN CELL VOLUME 83.1 fl (80-96); MEAN PLT VOLUME 9.1 fl (7.5-11.1); MONO % 3.9 % (3.8-10.2); NEUT % 92.6 % (42.8-82.8); PLATELET COUNT 335 K/MM3 (134-434); WHITE BLOOD COUNT 12.6 K/mm3 (4.0-10.0)
[2017-11-07 06:06] LABS: PROTHROMBIN TIME (PATIENT) 76.7 SEC (9.7-13.0)
[2017-11-07 06:13] LABS: INR 6.38 (0.83-1.09)
[2017-11-07 06:35] LABS: ALBUMIN 1.7 g/dl (3.4-5.0); ALK PHOS 180 U/L (45-117); ANION GAP 11 MMOL/L (8-16); BILIRUBIN,DIRECT 0.2 mg/dL (0.0-0.2); BILIRUBIN,TOTAL 0.3 mg/dL (0.2-1); BLOOD UREA NITROGEN 27 mg/dL (7-18); CALCIUM 8.4 mg/dL (8.5-10.1); CHLORIDE 113 mmol/L (98-107); CO2 16 mmol/L (21-32); GLUCOSE,RANDOM 135 mg/dL (74-106); MAGNESIUM 1.6 mg/dL (1.8-2.4); PHOSPHOROUS 2.8 mg/dL (2.5-4.9); POTASSIUM 3.5 mmol/L (3.5-5.1); SGOT/AST 10 U/L (15-37); SGPT/ALT 18 U/L (13-61); SODIUM 140 mmol/L (136-145); TOT PROT 5.3 g/dl (6.4-8.2)
[2017-11-07] MEDS: INSULIN SLIDING SCALE (NOVOLOG) 1 VIAL SQ SCH ×4 (06:57→21:33)
[2017-11-07] MEDS ORDERED: CALCIUM ACETATE 667 MG CAPSULE (FP) NGT ONE (08:00)
[2017-11-07] MEDS ORDERED: PT OWN MED DRAWER 7, Y5N ONE ×2 (09:04→11:10)
[2017-11-07] MEDS: ASPIRIN COATED 81 MG TABLET.EC PO SCH (09:08)
[2017-11-07] MEDS: PANTOPRAZOLE SODIUM 40 MG VIAL IVPUSH SCH (09:08)
[2017-11-07] MEDS: CLOPIDOGREL BISULFATE 75 MG TABLET (FP) PO SCH (09:08)
[2017-11-07] MEDS: SODIUM CHLORIDE 1,000 ML IV SCH (09:09)
[2017-11-07] MEDS: MUPIROCIN 2% TOPICAL OINTMENT FOR DECOLONIZATION NS SCH ×2 (09:10→21:29)
--- NOTE | 2017-11-07 10:21 | PN ---
Teaching Attending Note Name of Resident: Mary Bruce ATTENDING PHYSICIAN STATEMENT I saw and evaluated the patient. I reviewed the resident's note and discussed the case with the resident. I agree with the resident's findings and plan as documented. SUBJECTIVE: Pt seen and examined in the ICU. Off pressors. Denies fevers or chills. No shortness of breath or chest pain. OBJECTIVE: Vital Signs Period Temp Pulse Resp BP Sys/Maynard Pulse Ox Last 24 Hr 97 F-98.8 F 79-140 16-22 87-128/47-71 98 Intake & Output 11/04/17 11/05/17 11/06/17 11/07/17 23:59 23:59 23:59 23:59 Intake Total 3287.5 3557.5 1025 Output Total 1100 2000 500 Balance 2187.5 1557.5 525 Weight 83.8 kg 83.461 kg 85.332 kg Gen: NAD at rest Heart: RRR Lung: decreased breath sounds at the bases Abd: soft, nontender Ext: no edema CBC, BMP 11/07/17 05:30 11/07/17 05:30 Active Medications Acetaminophen (Ofirmev Injection -) 1,000 mg IVPB Q6H PRN PRN Reason: Pain 1-7 Aspirin (Ecotrin -) 81 mg PO DAILY [facility] Last Admin: 11/07/17 09:08 Dose: 81 mg Chlorhexidine Gluconate (Hibiclens For Decolonization -) 1 applic TP HS [facility] Last Admin: 11/06/17 21:10 Dose: 1 applic Clopidogrel Bisulfate (Plavix -) 75 mg PO DAILY [facility] Last Admin: 11/07/17 09:08 Dose: 75 mg Fludrocortisone Acetate (Florinef -) 0.05 mg PO DAILY [facility] Last Admin: 11/06/17 12:38 Dose: 0.05 mg Heparin Sodium (Porcine) (Heparin -) 5,000 unit SQ TID [facility] Last Admin: 11/07/17 05:19 Dose: 5,000 unit Hydrocortisone Sodium Succinate (Solu-Cortef -) 100 mg IVPB TID [facility] Last Admin: 11/07/17 05:19 Dose: 100 mg Norepinephrine Bitartrate 4, (000 mcg/ Dextrose) 500 mls @ 37.5 mls/hr IV TITR [facility]; Protocol Last Admin: 11/06/17 15:35 Dose: Not Given Piperacillin Sod/Tazobactam (Sod 3.375 gm/ Dextrose) 50 mls @ 100 mls/hr IVPB Q8H-IV [facility]; Protocol Last Admin: 11/07/17 09:08 Dose: 100 mls/hr Sodium Chloride (Normal Saline -) 1,000 mls @ 125 mls/hr IV ASDIR [facility] Last Admin: 11/07/17 09:09 Dose: 125 mls/hr Insulin Aspart (Novolog Vial Sliding Scale -) 1 vial SQ ACHS [facility]; Protocol Last Admin: 11/07/17 06:57 Dose: 2 units Mupirocin (Bactroban Ointment (For Decolonization) -) 1 applic NS BID [facility] Stop: 11/10/17 21:59 Last Admin: 11/07/17 09:10 Dose: 1 applic Oxycodone HCl (Roxicodone -) 5 mg PO Q4H PRN PRN Reason: PAIN LEVEL 4 - 6 Last Admin: 11/06/17 21:08 Dose: 5 mg Oxycodone HCl (Roxicodone -) 10 mg PO Q4H PRN PRN Reason: PAIN LEVEL 7 - 10 Pantoprazole Sodium (Protonix Iv) 40 mg IVPUSH DAILY [facility] Last Admin: 11/07/17 09:08 Dose: 40 mg ASSESSMENT AND PLAN: UTI Septic Shock improving h/o Bladder Ca s/p Cystectomy Acute on Chronic Renal Failure improving Adrenal Insufficiency Atrial Fibrillation HTN DM - continue antibiotics - f/u cultures - can d/c IVF - monitor urine output, creatinine - continue steroids - can d/c central line - PO as tolerated - DVT prophylaxis
[2017-11-07] MEDS: FLUDROCORTISONE ACETATE 0.1 MG TABLET (FP) PO SCH (11:19)
[2017-11-07] MEDS ORDERED: MAGNESIUM OXIDE 400 MG TABLET (FP) PO ONE (12:27)
--- NOTE | 2017-11-07 12:36 | PN ---
Progress Note, Physician - Current Medication List Current Medications: Active Medications Acetaminophen (Ofirmev Injection -) 1,000 mg IVPB Q6H PRN PRN Reason: Pain 1-7 Aspirin (Ecotrin -) 81 mg PO DAILY [facility] Last Admin: 11/07/17 09:08 Dose: 81 mg Chlorhexidine Gluconate (Hibiclens For Decolonization -) 1 applic TP HS [facility] Last Admin: 11/06/17 21:10 Dose: 1 applic Clopidogrel Bisulfate (Plavix -) 75 mg PO DAILY [facility] Last Admin: 11/07/17 09:08 Dose: 75 mg Fludrocortisone Acetate (Florinef -) 0.05 mg PO DAILY [facility] Last Admin: 11/07/17 11:19 Dose: 0.05 mg Heparin Sodium (Porcine) (Heparin -) 5,000 unit SQ TID [facility] Last Admin: 11/07/17 05:19 Dose: 5,000 unit Hydrocortisone Sodium Succinate (Solu-Cortef -) 100 mg IVPB TID [facility] Last Admin: 11/07/17 05:19 Dose: 100 mg Norepinephrine Bitartrate 4, (000 mcg/ Dextrose) 500 mls @ 37.5 mls/hr IV TITR [facility]; Protocol Last Admin: 11/06/17 15:35 Dose: Not Given Piperacillin Sod/Tazobactam (Sod 3.375 gm/ Dextrose) 50 mls @ 100 mls/hr IVPB Q8H-IV [facility]; Protocol Last Admin: 11/07/17 09:08 Dose: 100 mls/hr Insulin Aspart (Novolog Vial Sliding Scale -) 1 vial SQ ACHS [facility]; Protocol Last Admin: 11/07/17 11:19 Dose: 2 units Mupirocin (Bactroban Ointment (For Decolonization) -) 1 applic NS BID [facility] Stop: 11/10/17 21:59 Last Admin: 11/07/17 09:10 Dose: 1 applic Oxycodone HCl (Roxicodone -) 5 mg PO Q4H PRN PRN Reason: PAIN LEVEL 4 - 6 Last Admin: 11/06/17 21:08 Dose: 5 mg Oxycodone HCl (Roxicodone -) 10 mg PO Q4H PRN PRN Reason: PAIN LEVEL 7 - 10 Pantoprazole Sodium (Protonix Iv) 40 mg IVPUSH DAILY [facility] Last Admin: 11/07/17 09:08 Dose: 40 mg - Objective Vital Signs: Vital Signs Temperature 97.7 F 11/07/17 10:00 Pulse Rate 78 11/07/17 12:00 Respiratory Rate 20 11/07/17 12:00 Blood Pressure 136/79 11/07/17 12:00 O2 Sat by Pulse Oximetry (%) 96 11/07/17 09:00 Cardiovascular: Yes: S1, S2 Respiratory: Yes: Regular, CTA Bilaterally Gastrointestinal: Yes: Normal Bowel Sounds, Soft Labs: CBC, BMP 11/07/17 05:30 11/07/17 05:30 INR, PTT INR 6.38 (0.83-1.09) H* 11/07/17 05:30 Problem List - Problems (1) Adrenal mass Assessment/Plan: on Hydrocortisone 50mg Q6H -Endo consult Code(s): E27.9 - DISORDER OF ADRENAL GLAND, UNSPECIFIED (2) Sepsis Assessment/Plan: -Septic Shock 2/2 complicated UTI UA positive for bacteria, yeast, WBCs and 3+ LE ABX per ID f/u Urine Cx. and BCx. ID consult appreciated Microbiology 11/05/17 08:55 Urine Culture - Final Urine - Urine - Catheterized Pseudomonas Aeruginosa 11/05/17 08:55 Blood Culture - Preliminary Blood - Peripheral Venous NO GROWTH OBTAINED AFTER 48 HOURS, INCUBATION TO CONTINUE FOR 3 DAYS. 11/05/17 08:55 Blood Culture - Preliminary Blood - Peripheral Venous NO GROWTH OBTAINED AFTER 48 HOURS, INCUBATION TO CONTINUE FOR 3 DAYS. Code(s): A41.9 - SEPSIS, UNSPECIFIED ORGANISM Qualifiers: Sepsis type: sepsis due to unspecified organism Qualified Code(s): A41.9 - Sepsis, unspecified organism (3) Atrial fibrillation Assessment/Plan: Hold warfarin as INR is supra therapeutic to 4.83 Hold Metoprolol as Pt. is hypotensive on Levophed Code(s): I48.91 - UNSPECIFIED ATRIAL FIBRILLATION Qualifiers: Atrial fibrillation type: persistent Qualified Code(s): I48.1 - Persistent atrial fibrillation (4) CAD (coronary artery disease) Assessment/Plan: -Hypotension 2/2 septic shock monitor CVP on Levophed @ 2mcg Hold Spironolactone, Lisinopril and Metoprolol c/w ASA and Plavix Troponin - EKG appreciated: A.Fib w/ RVR, Code(s): I25.10 - ATHSCL HEART DISEASE OF [place] CORONARY ARTERY W/O ANG PCTRS Qualifiers: Coronary Disease-Associated Artery/Lesion type: [place] artery [place] vs. 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 Ruddy Mgcuire) Nephrology Consult appreciated (Dr. Baltazar) Code(s): C67.9 - MALIGNANT NEOPLASM OF BLADDER, UNSPECIFIED; C78.7 - SECONDARY MALIG NEOPLASM OF LIVER AND INTRAHEPATIC BILE DUCT (7) Diabetes Code(s): E11.9 - TYPE 2 DIABETES MELLITUS WITHOUT COMPLICATIONS
[2017-11-07 12:45] LABS: ANISOCYTOSIS 0; MACROCYTOSIS 0; PLATELET ESTIMATE NORMAL
--- NOTE | 2017-11-07 13:31 | PN ---
Progress Note, Physician History of Present Illness: Awake, alert Off pressors Afebrile WBC improved BC (-) Urine c/s Pseudomonas - Current Medication List Current Medications: Active Medications Acetaminophen (Ofirmev Injection -) 1,000 mg IVPB Q6H PRN PRN Reason: Pain 1-7 Aspirin (Ecotrin -) 81 mg PO DAILY [facility] Last Admin: 11/07/17 09:08 Dose: 81 mg Chlorhexidine Gluconate (Hibiclens For Decolonization -) 1 applic TP HS [facility] Last Admin: 11/06/17 21:10 Dose: 1 applic Clopidogrel Bisulfate (Plavix -) 75 mg PO DAILY [facility] Last Admin: 11/07/17 09:08 Dose: 75 mg Fludrocortisone Acetate (Florinef -) 0.05 mg PO DAILY [facility] Last Admin: 11/07/17 11:19 Dose: 0.05 mg Heparin Sodium (Porcine) (Heparin -) 5,000 unit SQ TID [facility] Last Admin: 11/07/17 13:09 Dose: 5,000 unit Hydrocortisone Sodium Succinate (Solu-Cortef -) 100 mg IVPB TID [facility] Last Admin: 11/07/17 13:11 Dose: 100 mg Norepinephrine Bitartrate 4, (000 mcg/ Dextrose) 500 mls @ 37.5 mls/hr IV TITR [facility]; Protocol Last Admin: 11/06/17 15:35 Dose: Not Given Piperacillin Sod/Tazobactam (Sod 3.375 gm/ Dextrose) 50 mls @ 100 mls/hr IVPB Q8H-IV [facility]; Protocol Last Admin: 11/07/17 09:08 Dose: 100 mls/hr Insulin Aspart (Novolog Vial Sliding Scale -) 1 vial SQ ACHS [facility]; Protocol Last Admin: 11/07/17 11:19 Dose: 2 units Mupirocin (Bactroban Ointment (For Decolonization) -) 1 applic NS BID [facility] Stop: 11/10/17 21:59 Last Admin: 11/07/17 09:10 Dose: 1 applic Oxycodone HCl (Roxicodone -) 5 mg PO Q4H PRN PRN Reason: PAIN LEVEL 4 - 6 Last Admin: 11/06/17 21:08 Dose: 5 mg Oxycodone HCl (Roxicodone -) 10 mg PO Q4H PRN PRN Reason: PAIN LEVEL 7 - 10 Pantoprazole Sodium (Protonix Iv) 40 mg IVPUSH DAILY [facility] Last Admin: 11/07/17 09:08 Dose: 40 mg - Objective Vital Signs: Vital Signs Temperature 97.7 F 11/07/17 10:00 Pulse Rate 78 11/07/17 12:00 Respiratory Rate 20 11/07/17 12:00 Blood Pressure 136/79 11/07/17 12:00 O2 Sat by Pulse Oximetry (%) 96 11/07/17 09:00 Constitutional: Yes: No Distress Eyes: Yes: Conjunctiva Clear Cardiovascular: Yes: Regular Rate and Rhythm, S1 Respiratory: Yes: Diminished Gastrointestinal: Yes: Normal Bowel Sounds, Soft, Other (+ ileal conduit). No: Tenderness Edema: No Labs: CBC, BMP 11/07/17 05:30 11/07/17 05:30 INR, PTT INR 6.38 (0.83-1.09) H* 11/07/17 05:30 Assessment/Plan Sepsis UTI/ sepsis secondary to UTI Metastatic bladder ca Leukocytosis- improved Continue zosyn
--- NOTE | 2017-11-07 14:32 | PN ---
Physical Exam: SUBJECTIVE: Patient seen and examined at bedside. No acute events overnight. Off pressors. Today, without complaint. Denies [place], fever, chills, SOB, or changes in urinary or bowel function. OBJECTIVE: -R IJ removed today -11/07/17 -has peripheral access -has been off pressors Vital Signs Period Temp Pulse Resp BP Sys/Maynard Pulse Ox Last 24 Hr 97 F-98.7 F 76-90 16-20 100-136/47-79 96-98 GENERAL: The patient is pleasant. awake, alert, and fully oriented, in no acute distress. HEAD: Normal with no signs of gross trauma. EYES: PERRL, sclera anicteric, conjunctiva clear. No ptosis. ENT: Ears normal, nares patent, moist mucous membranes. LUNGS: Breath sounds equal, clear to auscultation bilaterally, no wheezes, no crackles, no accessory muscle use. HEART:regular rate and rhythm, S1, S2 without rubs, murmurs or gallops ABDOMEN: Soft, nontender, nondistended, normoactive bowel sounds, ileal conduit in place. +yellow urine draining EXTREMITIES: 2+ dp pulses, warm, well-perfused, no edema NEUROLOGICAL: Cranial nerves II through XII grossly intact. Normal speech PSYCH: Normal mood, normal affect. Laboratory Results 11/06/17 11/07/17 11/07/17 16:15 05:30 05:30 WBC 12.6 H Hgb 9.6 L Hct 30.0 L Plt Count 335 Creatinine Cortisol AM Sample Pending Cortisol PM Sample Pending 11/07/17 11/07/17 05:30 05:30 INR 6.38 H* Sodium 140 Potassium 3.5 Chloride 113 H Carbon Dioxide 16 L BUN 27 H Creatinine 1.0 Active Medications Generic Name Dose Route Start Last Admin Trade Name Freq PRN Reason Stop Dose Admin Acetaminophen 1,000 mg 11/05/17 14:49 Ofirmev Injection - IVPB Q6H PRN Pain 1-7 Aspirin 81 mg 11/06/17 10:00 11/07/17 09:08 Ecotrin - PO 81 mg DAILY [facility] Administration Chlorhexidine Gluconate 1 applic 11/05/17 22:00 11/06/17 21:10 Hibiclens For Decolonization - TP 1 applic HS [facility] Administration Clopidogrel Bisulfate 75 mg 11/06/17 10:00 11/07/17 09:08 Plavix - PO 75 mg DAILY [facility] Administration Fludrocortisone Acetate 0.05 mg 11/06/17 12:15 11/07/17 11:19 Florinef - PO 0.05 mg DAILY [facility] Administration Heparin Sodium (Porcine) 5,000 unit 11/05/17 22:00 11/07/17 13:09 Heparin - SQ 5,000 unit TID [facility] Administration Hydrocortisone Sodium Succinate 100 mg 11/06/17 22:00 11/07/17 13:11 Solu-Cortef - IVPB 100 mg TID [facility] Administration Norepinephrine Bitartrate 4, 500 mls @ 37.5 mls/hr 11/05/17 14:45 11/06/17 15 :35 000 mcg/ Dextrose IV Not Given TITR [facility] Protocol 5 MCG/MIN Piperacillin Sod/Tazobactam 50 mls @ 100 mls/hr 11/05/17 18:00 11/07/17 09:08 Sod 3.375 gm/ Dextrose IVPB 100 mls/hr Q8H-IV [facility] Administration Protocol Insulin Aspart 1 vial 11/05/17 22:00 11/07/17 11:19 Novolog Vial Sliding Scale - SQ 2 units ACHS [facility] Administration Protocol Mupirocin 1 applic 11/05/17 22:00 11/07/17 09:10 Bactroban Ointment (For Decolonization) - NS 11/10/17 21:59 1 applic BID [facility] Administration Oxycodone HCl 5 mg 11/06/17 13:30 11/06/17 21:08 Roxicodone - PO 5 mg Q4H PRN Administration PAIN LEVEL 4 - 6 Oxycodone HCl 10 mg 11/06/17 13:30 Roxicodone - PO Q4H PRN PAIN LEVEL 7 - 10 Pantoprazole Sodium 40 mg 11/05/17 14:45 11/07/17 09:08 Protonix Iv IVPUSH 40 mg DAILY [facility] Administration ASSESSMENT/PLAN: 67 y.o. M w/ PMH of A.Fib (on warfarin), sCHF, CAD, HTN, GERD, s/p cystectomy and ileal conduit for Metastatic Bladder Ca (Lungs, Liver, L2-L4 vertebrae and right adrenal gland), and recent (discharged 11/04/17) hospital admission for UTI ( completed Amoxicillin for E.Coli and Enterrococcus Faecium) presented to the ED with hypotension, tachycardia and generalized weakness. Admitted to ICU since resistant to volume resuscitation and required pressors. ID #Septic Shock 2/2 complicated UTI -has been off pressors, maintaining MAP -central line removed today -off IVF -continue zosyn 3.375 gm IVPB q8h Cardio #Hypotension 2/2 septic shock and adrenal insufficiency -has resolved; normotensive -Fludrocortisone 50mcg Daily -Hydrocortisone 100mg TID #CAD -c/w ASA and Plavix -EKG appreciated: A.Fib w/ RVR, QTc: 483, Monitor QTc, especially with QT prolonging drugs. #CHF -hold home Lasix -Echo(10/28/17): severe global hypokinesis of LV, severe reduced LV function, normal LV size #A.Fib -Hold warfarin as INR is supra therapeutic to 6.83, as per 2012 ACCP guidelines we can hold warfarin and monitor for bleeding. Vitamin K is not indicated at this time. If bleeding is noted can give 1-2.5mg oral Vitamin K. If severe bleeding is noted can give FFP as this acts faster. -Holding Metoprolol Endocrine #Adrenal Insufficiency -f/u TSH, free T4, T3, cortisol AM levels and PM levels. Normal AM(~6am) levels range from 10-20mcg/dL. Normal PM(after 4PM) levels range from 3-10mcg/dL -c/w Fludrocortisone 50 mcg daily -hydrocortisone to 100mg TID Pulmonology #Pulmonary Metastases CXR (11/05/17) confirmed pulmonary nodules, no acute pathology CT Scan (11/05/17): shows multiple mets to liver, lungs, worsening hydronephrosis , suspicious for distal ureteral strictures at conduit, worsening L2-L4 bone metastases, new right adrenal metastases stable Urology -s/p cystectomy and ileal conduit for Metastatic Bladder Ca -Oxycodone 5mg and 10mg for pain 4-6 and 7-10 respectively. Psychiatry #Depression hold Citalopram 10mg #F/E/N -off IVF -continue to follow lytes -regular diet #PPx. -DVT: Heparin SQ -Hold Warfarin as INR is supratherapeutic -GI: c/w IV Protonix 50mg #Dispo -for transfer to med-surg Visit type - Emergency Visit Emergency Visit: No - New Patient This patient is new to me today: No - Critical Care Critical Care patient: Yes Total Critical Care Time (in minutes): 39 Critical Care Statement: The care of this patient involved high complexity decision making to prevent further life threatening deterioration of the patient 's condition and/or to evaluate & treat vital organ system(s) failure or risk of failure.
[2017-11-07] MEDS: CHLORHEXIDINE GLUCONATE 4% CLEANSER FOR DECOLONIZATION TP SCH (21:28)
[2017-11-08] MEDS ORDERED: DEXTROSE 5%-WATER - 50 ML IVPB ONE ×3 (02:31→17:21)
[2017-11-08] MEDS ORDERED: PIPERACILLIN/TAZOBACTAM 3.375 GM VIAL IVPB ONE ×3 (02:31→17:21)
[2017-11-08] MEDS: PIPERACILLIN/TAZOB 3.375 GM 3.375 GM in DEXTROSE 5%-WATER - 50 ML IVPB SCH ×3 (02:45→18:55)
[2017-11-08] MEDS: HYDROCORTISONE SOD SUCCINATE 100 MG/2 ML VIAL IVPB SCH ×3 (05:40→22:00)
[2017-11-08] MEDS: HEPARIN NA (PORCINE) 5,000 UNITS/ML 1ML VIAL SQ SCH ×2 (05:40→14:19)
[2017-11-08 06:01] LABS: BASO % 0.1 % (0-2.0); HEMOGLOBIN 10.5 GM/dL (11.7-16.9); LYMPH % 2.8 % (8-40); MCH 26.4 pg (25.7-33.7); MCHC 31.8 g/dl (32.0-35.9); MEAN CELL VOLUME 82.9 fl (80-96); MEAN PLT VOLUME 8.8 fl (7.5-11.1); NEUT % 92.1 % (42.8-82.8); PLATELET COUNT 342 K/MM3 (134-434); RBC 3.98 M/mm3 (4.00-5.60); RDW 16.1 % (11.9-15.9); WHITE BLOOD COUNT 12.9 K/mm3 (4.0-10.0)
[2017-11-08] MEDS: INSULIN SLIDING SCALE (NOVOLOG) 1 VIAL SQ SCH ×4 (06:04→23:02)
[2017-11-08 06:06] LABS: PROTHROMBIN TIME (PATIENT) 60.4 SEC (9.7-13.0)
[2017-11-08 06:19] LABS: ANION GAP 10 MMOL/L (8-16); BLOOD UREA NITROGEN 29 mg/dL (7-18); CALCIUM 8.2 mg/dL (8.5-10.1); CHLORIDE 112 mmol/L (98-107); CO2 17 mmol/L (21-32); CREATININE 1.1 mg/dL (0.55-1.3); GLUCOSE,RANDOM 138 mg/dL (74-106); MAGNESIUM 1.6 mg/dL (1.8-2.4); PHOSPHOROUS 2.9 mg/dL (2.5-4.9); POTASSIUM 3.5 mmol/L (3.5-5.1); SODIUM 139 mmol/L (136-145)
[2017-11-08 06:33] LABS: INR 5.04 (0.83-1.09)
[2017-11-08] MEDS ORDERED: PT OWN MED DRAWER 7, Y5N ONE ×2 (09:14→18:04)
[2017-11-08] MEDS: oxyCODONE HCL 5 MG TABLET PO PRN ×2 (09:39→20:21)
[2017-11-08] MEDS: ASPIRIN COATED 81 MG TABLET.EC PO SCH (09:40)
[2017-11-08] MEDS: PANTOPRAZOLE SODIUM 40 MG VIAL IVPUSH SCH (09:41)
[2017-11-08] MEDS: CLOPIDOGREL BISULFATE 75 MG TABLET (FP) PO SCH (09:41)
[2017-11-08] MEDS: FLUDROCORTISONE ACETATE 0.1 MG TABLET (FP) PO SCH (09:42)
[2017-11-08] MEDS: MUPIROCIN 2% TOPICAL OINTMENT FOR DECOLONIZATION NS SCH ×2 (09:44→23:03)
[2017-11-08 10:50] LABS: PLATELET ESTIMATE ADEQUATE
--- NOTE | 2017-11-08 11:13 | PN ---
Teaching Attending Note Name of Resident: Netta Tobar ATTENDING PHYSICIAN STATEMENT I saw and evaluated the patient. I reviewed the resident's note and discussed the case with the resident. I agree with the resident's findings and plan as documented. SUBJECTIVE: Pt seen and examined in the ICU. No issues overnight. No specific complaints. OBJECTIVE: Vital Signs Period Temp Pulse Resp BP Sys/Maynard Pulse Ox Last 24 Hr 97.8 F-98.4 F 76-90 11-21 136-146/72-94 97-98 Intake & Output 11/05/17 11/06/17 11/07/17 11/08/17 23:59 23:59 23:59 23:59 Intake Total 3287.5 3557.5 1535 290 Output Total 1100 2000 1700 600 Balance 2187.5 1557.5 -165 -310 Weight 83.8 kg 83.461 kg 85.332 kg 85.984 kg Gen: NAD at rest Heart: RRR Lung: decreased breath sounds at the bases Abd: soft, nontender Ext: + edema CBC, BMP 11/08/17 05:30 11/08/17 05:30 Active Medications Acetaminophen (Ofirmev Injection -) 1,000 mg IVPB Q6H PRN PRN Reason: Pain 1-7 Aspirin (Ecotrin -) 81 mg PO DAILY [facility] Last Admin: 11/08/17 09:40 Dose: 81 mg Chlorhexidine Gluconate (Hibiclens For Decolonization -) 1 applic TP HS [facility] Last Admin: 11/07/17 21:28 Dose: 1 applic Clopidogrel Bisulfate (Plavix -) 75 mg PO DAILY [facility] Last Admin: 11/08/17 09:41 Dose: 75 mg Fludrocortisone Acetate (Florinef -) 0.05 mg PO DAILY [facility] Last Admin: 11/08/17 09:42 Dose: 0.05 mg Heparin Sodium (Porcine) (Heparin -) 5,000 unit SQ TID [facility] Last Admin: 11/08/17 05:40 Dose: 5,000 unit Hydrocortisone Sodium Succinate (Solu-Cortef -) 100 mg IVPB TID [facility] Last Admin: 11/08/17 05:40 Dose: 100 mg Piperacillin Sod/Tazobactam (Sod 3.375 gm/ Dextrose) 50 mls @ 100 mls/hr IVPB Q8H-IV [facility]; Protocol Last Admin: 11/08/17 09:41 Dose: 100 mls/hr Insulin Aspart (Novolog Vial Sliding Scale -) 1 vial SQ ACHS [facility]; Protocol Last Admin: 11/08/17 06:04 Dose: 2 units Mupirocin (Bactroban Ointment (For Decolonization) -) 1 applic NS BID [facility] Stop: 11/10/17 21:59 Last Admin: 11/08/17 09:44 Dose: 1 applic Oxycodone HCl (Roxicodone -) 5 mg PO Q4H PRN PRN Reason: PAIN LEVEL 4 - 6 Last Admin: 11/08/17 09:39 Dose: 5 mg Oxycodone HCl (Roxicodone -) 10 mg PO Q4H PRN PRN Reason: PAIN LEVEL 7 - 10 Pantoprazole Sodium (Protonix Iv) 40 mg IVPUSH DAILY [facility] Last Admin: 11/08/17 09:41 Dose: 40 mg ASSESSMENT AND PLAN: UTI Septic Shock improved h/o Bladder Ca s/p Cystectomy Acute on Chronic Renal Failure improving Adrenal Insufficiency Atrial Fibrillation HTN DM - continue antibiotics - monitor urine output, creatinine - continue steroids - PO as tolerated - DVT prophylaxis - can monitor on floor
[2017-11-08] MEDS ORDERED: INSULIN (NOVOLOG) ASPART 100 UNITS/ML 10ML VIAL ONE ×2 (11:48→18:05)
--- NOTE | 2017-11-08 12:24 | PN ---
Progress Note, Physician History of Present Illness: Awake, alert Off pressors Afebrile WBC improved 12.9 BC (-) Urine c/s Pseudomonas - Current Medication List Current Medications: Active Medications Acetaminophen (Ofirmev Injection -) 1,000 mg IVPB Q6H PRN PRN Reason: Pain 1-7 Aspirin (Ecotrin -) 81 mg PO DAILY [facility] Last Admin: 11/08/17 09:40 Dose: 81 mg Chlorhexidine Gluconate (Hibiclens For Decolonization -) 1 applic TP HS [facility] Last Admin: 11/07/17 21:28 Dose: 1 applic Clopidogrel Bisulfate (Plavix -) 75 mg PO DAILY [facility] Last Admin: 11/08/17 09:41 Dose: 75 mg Fludrocortisone Acetate (Florinef -) 0.05 mg PO DAILY [facility] Last Admin: 11/08/17 09:42 Dose: 0.05 mg Heparin Sodium (Porcine) (Heparin -) 5,000 unit SQ TID [facility] Last Admin: 11/08/17 05:40 Dose: 5,000 unit Hydrocortisone Sodium Succinate (Solu-Cortef -) 100 mg IVPB TID [facility] Last Admin: 11/08/17 05:40 Dose: 100 mg Piperacillin Sod/Tazobactam (Sod 3.375 gm/ Dextrose) 50 mls @ 100 mls/hr IVPB Q8H-IV [facility]; Protocol Last Admin: 11/08/17 09:41 Dose: 100 mls/hr Insulin Aspart (Novolog Vial Sliding Scale -) 1 vial SQ ACHS [facility]; Protocol Last Admin: 11/08/17 11:49 Dose: 2 units Mupirocin (Bactroban Ointment (For Decolonization) -) 1 applic NS BID [facility] Stop: 11/10/17 21:59 Last Admin: 11/08/17 09:44 Dose: 1 applic Oxycodone HCl (Roxicodone -) 5 mg PO Q4H PRN PRN Reason: PAIN LEVEL 4 - 6 Last Admin: 11/08/17 09:39 Dose: 5 mg Oxycodone HCl (Roxicodone -) 10 mg PO Q4H PRN PRN Reason: PAIN LEVEL 7 - 10 Pantoprazole Sodium (Protonix Iv) 40 mg IVPUSH DAILY [facility] Last Admin: 11/08/17 09:41 Dose: 40 mg - Objective Vital Signs: Vital Signs Temperature 98.2 F 11/08/17 09:00 Pulse Rate 87 11/08/17 09:00 Respiratory Rate 16 11/08/17 09:00 Blood Pressure 143/83 11/08/17 09:00 O2 Sat by Pulse Oximetry (%) 97 11/08/17 09:00 Constitutional: Yes: No Distress Cardiovascular: Yes: Regular Rate and Rhythm, S1, S2 Respiratory: Yes: Diminished Gastrointestinal: Yes: Normal Bowel Sounds, Soft, Other (+ ileal conduit). No: Tenderness Edema: Yes Labs: CBC, BMP 11/08/17 05:30 11/08/17 05:30 INR, PTT INR 5.04 (0.83-1.09) H* 11/08/17 05:30 Assessment/Plan Sepsis UTI/ sepsis secondary to UTI Metastatic bladder ca Leukocytosis- improved Continue zosyn
--- NOTE | 2017-11-08 13:37 | CONSULT ---
Consult - text type - Consultation Consultation Note: 67 YOM with h/o bladder CA with mets to lung, liver, and bone , s/p ileal conduit, A-fib (on warfarin, Plavix, and baby ASA), CHF, CAD, HTN, GERD, and depression who was BIBEMS from [facility] (where he was recently admitted) who was found by care facility staff this morning half-off his bed and complaining of mid-back pain. He was readmitted for urospesis We have now been consulted for elevated INR - History Source History Provided By: Patient - Past Medical History Cardio/Vascular: Yes: AFIB, CAD, HTN, Hyperlipdemia Pulmonary: Yes: Sleep Apnea (rule out) Renal/: Yes: Renal Inusuff, Cancer (bladder) Endocrine: Yes: Diabetes Mellitus - Past Surgical History Past Surgical History: Yes: Stent - Smoking History Smoking history: Never smoked - Social History ADL: Independent History of Recent Travel: Yes ([place]) - Allergies Allergies/Adverse Reactions: Allergies Allergy/AdvReac Type Severity Reaction Status Date / Time No Known Allergies Allergy Verified 10/27/17 23:31 - Home Medications Home Medications: Ambulatory Orders Aspirin [Aspirin EC] 81 mg PO DAILY 08/25/17 Citalopram Hydrobromide [Citalopram HBr] 10 mg PO DAILY 08/25/17 Clopidogrel Bisulfate [Plavix] 75 mg PO DAILY 08/25/17 Oxycodone HCl/Acetaminophen [Endocet 5-325 Tablet] 1 each PO Q6H PRN 08/25/17 Pantoprazole Sodium [Protonix] 40 mg PO DAILY 08/25/17 Acetaminophen [Tylenol .Regular Strength -] 650 mg PO Q6H PRN #120 tablet MDD 6 09/03/17 Docusate Sodium [Colace -] 300 mg PO HS #90 capsule 09/03/17 Lisinopril [Prinivil] 2.5 mg PO DAILY #30 tablet 09/03/17 Metoprolol Succinate [Toprol XL -] 50 mg PO DAILY #30 tab.sr.24h 09/03/17 Spironolactone [Aldactone -] 25 mg PO DAILY #30 tablet 09/03/17 Warfarin Sodium [Coumadin] 4 mg PO HS #20 tablet MDD 1 11/03/17 Physical Exam Vital Signs: Last Vital Signs Temp Pulse Resp BP Pulse Ox 97.7 F 90 18 139/80 97 11/08/17 11:00 11/08/17 12:00 11/08/17 12:00 11/08/17 12:00 11/08/17 09:00 Cor: RSR, No murmurs, No gallops Lungs: Clear to P&A Abd: Soft, Normal bowel sounds, No organomegaly Ext:No significant edema Skin: No rashes, Integument intact Abnormal Lab Results 11/08/17 11/08/17 11/08/17 05:30 05:30 05:30 WBC 12.9 H RBC 3.98 L Hgb 10.5 L Hct 33.0 L MCHC 31.8 L RDW 16.1 H Absolute Neuts (auto) 11.9 H Neutrophils % 92.1 H Neutrophils % (Manual) 93.0 H Lymphocytes % 2.8 L Lymphocytes % (Manual) 2.0 L D PT with INR 60.40 H INR 5.04 H* Chloride 112 H Carbon Dioxide 17 L BUN 29 H Random Glucose 138 H Calcium 8.2 L Magnesium 1.6 L Active Medications Generic Name Dose Route Start Last Admin Trade Name Freq PRN Reason Stop Dose Admin Acetaminophen 1,000 mg 11/05/17 14:49 Ofirmev Injection - IVPB Q6H PRN Pain 1-7 Aspirin 81 mg 11/06/17 10:00 11/08/17 09:40 Ecotrin - PO 81 mg DAILY [facility] Administration Chlorhexidine Gluconate 1 applic 11/05/17 22:00 11/07/17 21:28 Hibiclens For Decolonization - TP 1 applic HS [facility] Administration Clopidogrel Bisulfate 75 mg 11/06/17 10:00 11/08/17 09:41 Plavix - PO 75 mg DAILY [facility] Administration Fludrocortisone Acetate 0.05 mg 11/06/17 12:15 11/08/17 09:42 Florinef - PO 0.05 mg DAILY [facility] Administration Heparin Sodium (Porcine) 5,000 unit 11/05/17 22:00 11/08/17 05:40 Heparin - SQ 5,000 unit TID [facility] Administration Hydrocortisone Sodium Succinate 100 mg 11/06/17 22:00 11/08/17 05:40 Solu-Cortef - IVPB 100 mg TID [facility] Administration Piperacillin Sod/Tazobactam 50 mls @ 100 mls/hr 11/05/17 18:00 11/08/17 09:41 Sod 3.375 gm/ Dextrose IVPB 100 mls/hr Q8H-IV [facility] Administration Protocol Insulin Aspart 1 vial 11/05/17 22:00 11/08/17 11:49 Novolog Vial Sliding Scale - SQ 2 units ACHS [facility] Administration Protocol Mupirocin 1 applic 11/05/17 22:00 11/08/17 09:44 Bactroban Ointment (For Decolonization) - NS 11/10/17 21:59 1 applic BID [facility] Administration Oxycodone HCl 5 mg 11/06/17 13:30 11/08/17 09:39 Roxicodone - PO 5 mg Q4H PRN Administration PAIN LEVEL 4 - 6 Oxycodone HCl 10 mg 11/06/17 13:30 Roxicodone - PO Q4H PRN PAIN LEVEL 7 - 10 Pantoprazole Sodium 40 mg 11/05/17 14:45 11/08/17 09:41 Protonix Iv IVPUSH 40 mg DAILY [facility] Administration Problem List - Problems (1) HEYDI (acute kidney injury) Code(s): N17.9 - ACUTE KIDNEY FAILURE, UNSPECIFIED (2) Adrenal mass Code(s): E27.9 - DISORDER OF ADRENAL GLAND, UNSPECIFIED (3) Hydronephrosis Code(s): N13.30 - UNSPECIFIED HYDRONEPHROSIS (4) Sepsis Code(s): A41.9 - SEPSIS, UNSPECIFIED ORGANISM Qualifiers: Sepsis type: sepsis due to unspecified organism Qualified Code(s): A41.9 - Sepsis, unspecified organism (5) Supratherapeutic INR Code(s): R79.1 - ABNORMAL COAGULATION PROFILE (6) Anemia Code(s): D64.9 - ANEMIA, UNSPECIFIED (7) Anxiety Code(s): F41.9 - ANXIETY DISORDER, UNSPECIFIED Assessment/Plan 67 YOM with h/o bladder CA with mets to lung, liver, and bone , s/p ileal conduit, A-fib (on warfarin, Plavix, and baby ASA), CHF, CAD, HTN, GERD, and depression who was BIBEMS from [facility] (where he was recently admitted) who was found by care facility staff this morning half-off his bed and complaining of mid-back pain. He was readmitted for urospesis We have now been consulted for elevated INR Elevated INR due to coagulopathy from sepsis/infection No active bleeding Monitor Metastatic bladder cancer -- poor peformance status ongoing discussions regarding goals of care
--- NOTE | 2017-11-08 14:13 | PN ---
Progress Note (short form) - Note Progress Note: Covering dr alex Soliz 1. CKD 2. altered mental status 3. a-fib 4. DM 5. HTN 6. hx bladder cancer 7. leukocytosis 8. sepsis 9. hyperkalemia 10. chon Current Medications Acetaminophen (Ofirmev Injection -) 1,000 mg IVPB Q6H PRN PRN Reason: Pain 1-7 Aspirin (Ecotrin -) 81 mg PO DAILY [facility] Last Admin: 11/08/17 09:40 Dose: 81 mg Chlorhexidine Gluconate (Hibiclens For Decolonization -) 1 applic TP HS [facility] Last Admin: 11/07/17 21:28 Dose: 1 applic Clopidogrel Bisulfate (Plavix -) 75 mg PO DAILY [facility] Last Admin: 11/08/17 09:41 Dose: 75 mg Fludrocortisone Acetate (Florinef -) 0.05 mg PO DAILY [facility] Last Admin: 11/08/17 09:42 Dose: 0.05 mg Heparin Sodium (Porcine) (Heparin -) 5,000 unit SQ TID [facility] Last Admin: 11/08/17 05:40 Dose: 5,000 unit Hydrocortisone Sodium Succinate (Solu-Cortef -) 100 mg IVPB TID [facility] Last Admin: 11/08/17 05:40 Dose: 100 mg Piperacillin Sod/Tazobactam (Sod 3.375 gm/ Dextrose) 50 mls @ 100 mls/hr IVPB Q8H-IV [facility]; Protocol Last Admin: 11/08/17 09:41 Dose: 100 mls/hr Insulin Aspart (Novolog Vial Sliding Scale -) 1 vial SQ ACHS [facility]; Protocol Last Admin: 11/08/17 11:49 Dose: 2 units Mupirocin (Bactroban Ointment (For Decolonization) -) 1 applic NS BID [facility] Stop: 11/10/17 21:59 Last Admin: 11/08/17 09:44 Dose: 1 applic Oxycodone HCl (Roxicodone -) 5 mg PO Q4H PRN PRN Reason: PAIN LEVEL 4 - 6 Last Admin: 11/08/17 09:39 Dose: 5 mg Oxycodone HCl (Roxicodone -) 10 mg PO Q4H PRN PRN Reason: PAIN LEVEL 7 - 10 Pantoprazole Sodium (Protonix Iv) 40 mg IVPUSH DAILY [facility] Last Admin: 11/08/17 09:41 Dose: 40 mg Last Vital Signs Temp Pulse Resp BP Pulse Ox 97.5 F L 92 H 18 141/78 97 11/08/17 14:00 11/08/17 14:00 11/08/17 14:00 11/08/17 14:00 11/08/17 09:00 Lungs clear Heart s1s2 Abd soft nontender Ext no edema CBC, BMP 11/08/17 05:30 11/08/17 05:30 IMP- obstructive uropathy UTI Medical acidosis Plan- follow renal function periodically
--- NOTE | 2017-11-08 15:06 | PN ---
Progress Note, Physician - Current Medication List Current Medications: Active Medications Acetaminophen (Ofirmev Injection -) 1,000 mg IVPB Q6H PRN PRN Reason: Pain 1-7 Aspirin (Ecotrin -) 81 mg PO DAILY [facility] Last Admin: 11/08/17 09:40 Dose: 81 mg Chlorhexidine Gluconate (Hibiclens For Decolonization -) 1 applic TP HS [facility] Last Admin: 11/07/17 21:28 Dose: 1 applic Clopidogrel Bisulfate (Plavix -) 75 mg PO DAILY [facility] Last Admin: 11/08/17 09:41 Dose: 75 mg Fludrocortisone Acetate (Florinef -) 0.05 mg PO DAILY [facility] Last Admin: 11/08/17 09:42 Dose: 0.05 mg Hydrocortisone Sodium Succinate (Solu-Cortef -) 100 mg IVPB TID [facility] Last Admin: 11/08/17 14:32 Dose: 100 mg Piperacillin Sod/Tazobactam (Sod 3.375 gm/ Dextrose) 50 mls @ 100 mls/hr IVPB Q8H-IV [facility]; Protocol Last Admin: 11/08/17 09:41 Dose: 100 mls/hr Insulin Aspart (Novolog Vial Sliding Scale -) 1 vial SQ ACHS [facility]; Protocol Last Admin: 11/08/17 11:49 Dose: 2 units Mupirocin (Bactroban Ointment (For Decolonization) -) 1 applic NS BID [facility] Stop: 11/10/17 21:59 Last Admin: 11/08/17 09:44 Dose: 1 applic Oxycodone HCl (Roxicodone -) 5 mg PO Q4H PRN PRN Reason: PAIN LEVEL 4 - 6 Last Admin: 11/08/17 09:39 Dose: 5 mg Oxycodone HCl (Roxicodone -) 10 mg PO Q4H PRN PRN Reason: PAIN LEVEL 7 - 10 Pantoprazole Sodium (Protonix Iv) 40 mg IVPUSH DAILY [facility] Last Admin: 11/08/17 09:41 Dose: 40 mg - Objective Vital Signs: Vital Signs Temperature 97.5 F L 11/08/17 14:00 Pulse Rate 92 H 11/08/17 14:00 Respiratory Rate 18 11/08/17 14:00 Blood Pressure 141/78 11/08/17 14:00 O2 Sat by Pulse Oximetry (%) 97 11/08/17 09:00 Cardiovascular: Yes: S1, S2 Respiratory: Yes: Regular, CTA Bilaterally Gastrointestinal: Yes: Normal Bowel Sounds, Soft, Distention Labs: CBC, BMP 11/08/17 05:30 11/08/17 05:30 INR, PTT INR 5.04 (0.83-1.09) H* 11/08/17 05:30 Problem List - Problems (1) Adrenal mass Assessment/Plan: on Hydrocortisone 50mg Q6H -Endo consult Code(s): E27.9 - DISORDER OF ADRENAL GLAND, UNSPECIFIED (2) Sepsis Assessment/Plan: -Septic Shock 2/2 complicated UTI UA positive for bacteria, yeast, WBCs and 3+ LE ABX per ID f/u Urine Cx. and BCx. ID consult appreciated Microbiology 11/05/17 08:55 Urine Culture - Final Urine - Urine - Catheterized Pseudomonas Aeruginosa 11/05/17 08:55 Blood Culture - Preliminary Blood - Peripheral Venous NO GROWTH OBTAINED AFTER 48 HOURS, INCUBATION TO CONTINUE FOR 3 DAYS. 11/05/17 08:55 Blood Culture - Preliminary Blood - Peripheral Venous NO GROWTH OBTAINED AFTER 48 HOURS, INCUBATION TO CONTINUE FOR 3 DAYS. Code(s): A41.9 - SEPSIS, UNSPECIFIED ORGANISM Qualifiers: Sepsis type: sepsis due to unspecified organism Qualified Code(s): A41.9 - Sepsis, unspecified organism (3) Atrial fibrillation Assessment/Plan: Hold warfarin as INR is supra therapeutic to 4.83 Hold Metoprolol as Pt. is hypotensive on Levophed Code(s): I48.91 - UNSPECIFIED ATRIAL FIBRILLATION Qualifiers: Atrial fibrillation type: persistent Qualified Code(s): I48.1 - Persistent atrial fibrillation (4) CAD (coronary artery disease) Assessment/Plan: -Hypotension 2/2 septic shock monitor CVP on Levophed @ 2mcg Hold Spironolactone, Lisinopril and Metoprolol c/w ASA and Plavix Troponin - EKG appreciated: A.Fib w/ RVR, Code(s): I25.10 - ATHSCL HEART DISEASE OF [place] CORONARY ARTERY W/O ANG PCTRS Qualifiers: Coronary Disease-Associated Artery/Lesion type: [place] artery [place] vs. transplanted heart: [place] heart Associated angina: without angina Qualified Code(s): I25.10 - Atherosclerotic heart disease of [place] coronary artery without angina pectoris (5) CHF (congestive heart failure) Assessment/Plan: Hold home Lasix Echo(10/28/17): severe global hypokinesis of LV, severe reduced LV function, normal LV size Cardiology consult Strict Is & Os Code(s): I50.9 - HEART FAILURE, UNSPECIFIED (6) 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 Assessment/Plan: -Pulmonary Metastases CXR (11/05/17) confirmed pulmonary nodules, no acute pathology CT Scan (11/05/17): shows multiple mets to liver, lungs, worsening hydronephrosis , suspicious for distal ureteral strictures at conduit, worsening L2-L4 bone metastases, new right adrenal metastases stable -s/p cystectomy and ileal conduit for Metastatic Bladder Ca S/p suprapubic catheter placement Urology Consult appreciated (Dr. Ruddy Mcguire) Nephrology Consult appreciated (Dr. Baltazar) Code(s): C67.9 - MALIGNANT NEOPLASM OF BLADDER, UNSPECIFIED; C78.7 - SECONDARY MALIG NEOPLASM OF LIVER AND INTRAHEPATIC BILE DUCT (7) Diabetes Code(s): E11.9 - TYPE 2 DIABETES MELLITUS WITHOUT COMPLICATIONS
--- NOTE | 2017-11-08 16:12 | PN ---
Physical Exam: SUBJECTIVE: Patient seen and examined; alert, oriented; off pressers, afebrile, in mild pain. Episodes of rapid a fib on monitor. OBJECTIVE: Vital Signs Period Temp Pulse Resp BP Sys/Maynard Pulse Ox Last 24 Hr 97.5 F-98.4 F 80-92 11-18 138-146/72-94 97-98 GENERAL: The patient is awake, alert, and fully oriented, LUNGS: decreased breath sounds HEART: Regular rate and rhythm, S1, S2 without murmur, rub or gallop. ABDOMEN: Soft,mildy tender, mild distension, BS+ EXTREMITIES: 2+ pulses, warm, well-perfused, no edema. NEUROLOGICAL: Cranial nerves II through XII grossly intact. Normal speech, gait not observed. SKIN: Warm, dry, normal turgor, no rashes or lesions noted Laboratory Results - last 24 hr 11/07/17 11/07/17 11/07/17 05:30 16:35 21:31 WBC RBC Hgb Hct MCV MCH MCHC RDW Plt Count MPV Absolute Neuts (auto) Total Counted Neutrophils % Neutrophils % (Manual) Lymphocytes % Lymphocytes % (Manual) Monocytes % Monocytes % (Manual) Eosinophils % Basophils % Nucleated RBC % Platelet Estimate Platelet Comment PT with INR INR Sodium Potassium Chloride Carbon Dioxide Anion Gap BUN Creatinine Creat Clearance w eGFR POC Glucometer 145.23295 162.30446 Random Glucose Calcium Phosphorus Magnesium Cortisol AM Sample 37.9 11/08/17 11/08/17 11/08/17 05:27 05:30 05:30 WBC 12.9 H RBC 3.98 L Hgb 10.5 L Hct 33.0 L MCV 82.9 MCH 26.4 MCHC 31.8 L RDW 16.1 H Plt Count 342 MPV 8.8 Absolute Neuts (auto) 11.9 H Total Counted 100 Neutrophils % 92.1 H Neutrophils % (Manual) 93.0 H Lymphocytes % 2.8 L Lymphocytes % (Manual) 2.0 L D Monocytes % 5.0 Monocytes % (Manual) 5 D Eosinophils % 0.0 D Basophils % 0.1 Nucleated RBC % 0 Platelet Estimate Adequate Platelet Comment No clumping noted PT with INR INR Sodium 139 Potassium 3.5 Chloride 112 H Carbon Dioxide 17 L Anion Gap 10 BUN 29 H Creatinine 1.1 Creat Clearance w eGFR > 60 POC Glucometer 151.22220 Random Glucose 138 H Calcium 8.2 L Phosphorus 2.9 Magnesium 1.6 L Cortisol AM Sample 11/08/17 11/08/17 05:30 11:43 WBC RBC Hgb Hct MCV MCH MCHC RDW Plt Count MPV Absolute Neuts (auto) Total Counted Neutrophils % Neutrophils % (Manual) Lymphocytes % Lymphocytes % (Manual) Monocytes % Monocytes % (Manual) Eosinophils % Basophils % Nucleated RBC % Platelet Estimate Platelet Comment PT with INR 60.40 H INR 5.04 H* Sodium Potassium Chloride Carbon Dioxide Anion Gap BUN Creatinine Creat Clearance w eGFR POC Glucometer 200.26126 Random Glucose Calcium Phosphorus Magnesium Cortisol AM Sample Active Medications Generic Name Dose Route Start Last Admin Trade Name Freq PRN Reason Stop Dose Admin Acetaminophen 1,000 mg 11/05/17 14:49 Ofirmev Injection - IVPB Q6H PRN Pain 1-7 Aspirin 81 mg 11/06/17 10:00 11/08/17 09:40 Ecotrin - PO 81 mg DAILY [facility] Administration Chlorhexidine Gluconate 1 applic 11/05/17 22:00 11/07/17 21:28 Hibiclens For Decolonization - TP 1 applic HS [facility] Administration Clopidogrel Bisulfate 75 mg 11/06/17 10:00 11/08/17 09:41 Plavix - PO 75 mg DAILY [facility] Administration Fludrocortisone Acetate 0.05 mg 11/06/17 12:15 11/08/17 09:42 Florinef - PO 0.05 mg DAILY [facility] Administration Hydrocortisone Sodium Succinate 100 mg 11/06/17 22:00 11/08/17 14:32 Solu-Cortef - IVPB 100 mg TID [facility] Administration Piperacillin Sod/Tazobactam 50 mls @ 100 mls/hr 11/05/17 18:00 11/08/17 09:41 Sod 3.375 gm/ Dextrose IVPB 100 mls/hr Q8H-IV [facility] Administration Protocol Insulin Aspart 1 vial 11/05/17 22:00 11/08/17 11:49 Novolog Vial Sliding Scale - SQ 2 units ACHS [facility] Administration Protocol Mupirocin 1 applic 11/05/17 22:00 11/08/17 09:44 Bactroban Ointment (For Decolonization) - NS 11/10/17 21:59 1 applic BID [facility] Administration Oxycodone HCl 5 mg 11/06/17 13:30 11/08/17 09:39 Roxicodone - PO 5 mg Q4H PRN Administration PAIN LEVEL 4 - 6 Oxycodone HCl 10 mg 11/06/17 13:30 Roxicodone - PO Q4H PRN PAIN LEVEL 7 - 10 Pantoprazole Sodium 40 mg 11/05/17 14:45 11/08/17 09:41 Protonix Iv IVPUSH 40 mg DAILY [facility] Administration ASSESSMENT/PLAN: This is a 67 yo male with h/o bladder CA with mets to lung, liver, and bone , s/ p ileal conduit, A-fib, CHF, CAD, HTN, GERD, and depression who was BIBEMS from [facility] presented with severe sepsis from urinary tract infection and supratheraputic INR. #septic shock secondary to UTI #metastatic bladder CA #acute on chronic renal failure #atrial fibrillation #adrenal insufficiency #hsx of htn #DM -off pressers -maintain MAP>65 -IV antibiotics on zosyn -cont steroids -will restart metoprolol 25mg BID; f/u cardio -hold warfarin due to supratheraputic INR -po intake -GI/DVY ppl Transfer to floors Visit type - Emergency Visit Emergency Visit: Yes ED Registration Date: 11/05/17 Care time: The patient presented to the Emergency Department on the above date and was hospitalized for further evaluation of their emergent condition. - New Patient This patient is new to me today: Yes Date on this admission: 11/08/17 - Critical Care Critical Care patient: Yes Total Critical Care Time (in minutes): 45 Critical Care Statement: The care of this patient involved high complexity decision making to prevent further life threatening deterioration of the patient 's condition and/or to evaluate & treat vital organ system(s) failure or risk of failure.
[2017-11-08] MEDS ORDERED: POTASSIUM CHLORIDE 20 MEQ PREMIX IVPB 100 ML IVPB ONE (17:14)
[2017-11-08] MEDS ORDERED: MAGNESIUM SULF 50% (8.12 MEQ/2 ML-1 GM VIAL) IVPB ONE (17:15)
[2017-11-08] MEDS ORDERED: METOPROLOL TARTRATE 25 MG TABLET (FP) PO ONE (17:30)
[2017-11-08] MEDS ORDERED: POTASSIUM CHLORIDE TABS 20 MEQ TABLET.ER (FP) PO ONE (17:30)
[2017-11-08] MEDS ORDERED: MAGNESIUM 1GM/D5W - 1 GM/100 ML IVPB IVPB ONE (17:30)
[2017-11-08] MEDS: KCL 10 MEQ IVPB 10 MEQ/100 ML INFUS.BAG IVPB SCH ×2 (18:38→20:20)
[2017-11-08] MEDS: CHLORHEXIDINE GLUCONATE 4% CLEANSER FOR DECOLONIZATION TP SCH (21:56)
[2017-11-08] MEDS: METOPROLOL TARTRATE 25 MG TABLET (FP) PO SCH (21:57)
[2017-11-09] MEDS ORDERED: DEXTROSE 5%-WATER - 50 ML IVPB ONE ×3 (00:31→18:37)
[2017-11-09] MEDS ORDERED: PIPERACILLIN/TAZOBACTAM 3.375 GM VIAL IVPB ONE ×3 (00:31→18:37)
[2017-11-09] MEDS: PIPERACILLIN/TAZOB 3.375 GM 3.375 GM in DEXTROSE 5%-WATER - 50 ML IVPB SCH ×3 (02:33→18:51)
[2017-11-09 05:40] LABS: BASO % 0.1 % (0-2.0); EOS % 0.1 % (0-4.5); HEMATOCRIT 33.2 % (35.4-49); HEMOGLOBIN 10.7 GM/dL (11.7-16.9); LYMPH % 2.4 % (8-40); MCH 26.5 pg (25.7-33.7); MCHC 32.1 g/dl (32.0-35.9); MEAN CELL VOLUME 82.7 fl (80-96); MONO % 4.3 % (3.8-10.2); NEUT % 93.1 % (42.8-82.8); PLATELET COUNT 404 K/MM3 (134-434); RBC 4.02 M/mm3 (4.00-5.60); RDW 16.5 % (11.9-15.9); WHITE BLOOD COUNT 15.3 K/mm3 (4.0-10.0)
[2017-11-09] MEDS: HYDROCORTISONE SOD SUCCINATE 100 MG/2 ML VIAL IVPB SCH ×3 (05:54→21:27)
[2017-11-09] MEDS: oxyCODONE HCL 5 MG TABLET PO PRN (05:55)
[2017-11-09 06:07] LABS: ALK PHOS 194 U/L (45-117); ANION GAP 14 MMOL/L (8-16); BILIRUBIN,TOTAL 0.3 mg/dL (0.2-1); BLOOD UREA NITROGEN 28 mg/dL (7-18); CALCIUM 8.9 mg/dL (8.5-10.1); CHLORIDE 111 mmol/L (98-107); CO2 15 mmol/L (21-32); CREATININE 1.1 mg/dL (0.55-1.3); GLUCOSE,RANDOM 121 mg/dL (74-106); MAGNESIUM 1.9 mg/dL (1.8-2.4); PHOSPHOROUS 2.7 mg/dL (2.5-4.9); POTASSIUM 3.8 mmol/L (3.5-5.1); SGOT/AST 14 U/L (15-37); SGPT/ALT 24 U/L (13-61); SODIUM 140 mmol/L (136-145); TOT PROT 5.9 g/dl (6.4-8.2)
[2017-11-09] MEDS: INSULIN SLIDING SCALE (NOVOLOG) 1 VIAL SQ SCH ×5 (06:51→21:26)
[2017-11-09] MEDS ORDERED: oxyCODONE HCL 5 MG TABLET PO PRN (06:58)
[2017-11-09] MEDS ORDERED: SODIUM POLYSTYRENE SULFONATE 15 GM/60 ML BOTTLE PO ONE (06:58)
[2017-11-09 08:26] LABS: INR 3.86 (0.83-1.09); PROTHROMBIN TIME (PATIENT) 46.2 SEC (9.7-13.0)
--- NOTE | 2017-11-09 09:00 | CON.CARD ---
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 As per EMS the patients systolic was noted to be in the 60s and they placed a PIV and started a liter of NS prior to arrival in the emergency department. The patient denies chest pain, shortness of breath, headache and dizziness. Denies fever, chills, nausea, vomit, diarrhea and constipation. Denies dysuria, frequency, urgency and hematuria. - History Source History Provided By: Patient, Caregiver Limitations to Obtaining History: Poor Historian - Past Medical History Cardio/Vascular: Yes: AFIB, CAD, HTN, Hyperlipdemia Pulmonary: Yes: Sleep Apnea (rule out) Renal/: Yes: Renal Inusuff, Cancer (bladder) Endocrine: Yes: Diabetes Mellitus - Past Surgical History Past Surgical History: Yes: Stent - Alcohol/Substance Use Hx Alcohol Use: No History of Substance Use: reports: None - Smoking History Smoking history: Never smoked Have you smoked in the past 12 months: No Aproximately how many cigarettes per day: 0 - Social History ADL: Independent History of Recent Travel: Yes ([place]) Home Medications - Allergies Allergies/Adverse Reactions: Allergies Allergy/AdvReac Type Severity Reaction Status Date / Time No Known Allergies Allergy Verified 10/27/17 23:31 - Home Medications Home Medications: Ambulatory Orders Aspirin [Aspirin EC] 81 mg PO DAILY 08/25/17 Citalopram Hydrobromide [Citalopram HBr] 10 mg PO DAILY 08/25/17 Clopidogrel Bisulfate [Plavix] 75 mg PO DAILY 08/25/17 Oxycodone HCl/Acetaminophen [Endocet 5-325 Tablet] 1 each PO Q6H PRN 08/25/17 Pantoprazole Sodium [Protonix] 40 mg PO DAILY 08/25/17 Acetaminophen [Tylenol .Regular Strength -] 650 mg PO Q6H PRN #120 tablet MDD 6 09/03/17 Docusate Sodium [Colace -] 300 mg PO HS #90 capsule 09/03/17 Lisinopril [Prinivil] 2.5 mg PO DAILY #30 tablet 09/03/17 Metoprolol Succinate [Toprol XL -] 50 mg PO DAILY #30 tab.sr.24h 09/03/17 Spironolactone [Aldactone -] 25 mg PO DAILY #30 tablet 09/03/17 Warfarin Sodium [Coumadin] 4 mg PO HS #20 tablet MDD 1 11/03/17 Family Disease History - Family Disease History Family History: Denies Review of Systems - Review of Systems Constitutional: reports: Weakness Eyes: reports: No Symptoms HENT: reports: No Symptoms Neck: reports: No Symptoms Cardiovascular: reports: No Symptoms Respiratory: reports: No Symptoms Gastrointestinal: reports: No Symptoms Genitourinary: reports: No Symptoms Breasts: reports: No Symptoms Reported Musculoskeletal: reports: Muscle Weakness Integumentary: reports: No Symptoms Neurological: reports: Weakness Endocrine: reports: No Symptoms Hematology/Lymphatic: reports: No Symptoms Psychiatric: reports: Anxiety - Risk Factors Known Risk Factors: Yes: Age, Gender, Hypercholesterolemia, Hypertension, Physical Inactivity, Other (severe systolic CHF; CAD) Vital Signs: Vital Signs Temperature 97.4 F L 11/09/17 06:00 Pulse Rate 72 11/09/17 08:00 Respiratory Rate 16 11/09/17 08:00 Blood Pressure 149/83 11/09/17 08:00 O2 Sat by Pulse Oximetry (%) 95 11/09/17 07:54 Constitutional: Yes: Pallor Eyes: Yes: WNL HENT: Yes: WNL Neck: Yes: WNL Respiratory: Yes: Regular Gastrointestinal: Yes: Soft Renal/: No: Anuria Cardiovascular: Yes: Tachycardia, Pulse Irregular JVD: No Carotid Bruit: No PMI: Displaced Heart Sounds: Yes: S1 (varies in intensity), S2 Murmur: Yes: Systolic Murmur, Grade 1 Musculoskeletal: Yes: Muscle Weakness Extremities: Yes: Cool Edema: No Peripheral Pulses WNL: Yes Integumentary: Yes: WNL Neurological: Yes: Alert, Oriented, Paresthesia Psychiatric: Yes: Alert, Oriented - Other Data Labs, Other Data: CBC, BMP 11/09/17 05:30 11/09/17 05:30 INR, PTT INR 3.86 (0.83-1.09) H 11/09/17 05:30 Echo: Report Reviewed Ejection Fraction %: LVEF < 40 % Imaging - Results Chest X-ray: Image Reviewed (no acute process; + metastatic disease) EKG: Image Reviewed (AF with RVR) Problem List - Problems (1) Sepsis Assessment/Plan: [id number]; antibiotics per ID Code(s): A41.9 - SEPSIS, UNSPECIFIED ORGANISM Qualifiers: Sepsis type: sepsis due to unspecified organism Qualified Code(s): A41.9 - Sepsis, unspecified organism (2) Anemia Code(s): D64.9 - ANEMIA, UNSPECIFIED (3) Anxiety Code(s): F41.9 - ANXIETY DISORDER, UNSPECIFIED (4) Atrial fibrillation with rapid ventricular response Assessment/Plan: hypotension makes starting beta blockers problematic; may use digoxin if HR remains elevated. 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 transplanted heart: [place] heart Associated angina: without angina Qualified Code(s): I25.10 - Atherosclerotic heart disease of [place] coronary artery without angina pectoris (7) Cardiomyopathy Code(s): I42.9 - CARDIOMYOPATHY, UNSPECIFIED Qualifiers: Cardiomyopathy type: ischemic Qualified Code(s): I25.5 - Ischemic cardiomyopathy (8) Chronic systolic (congestive) heart failure Assessment/Plan: restart metoprolol, ACEI, aldactone when no longer hypotensive. F/u BUN/Cr, Is and Os, daily weight, electroltytes. Code(s): I50.22 - CHRONIC SYSTOLIC (CONGESTIVE) HEART FAILURE (9) Hyperlipidemia Code(s): E78.5 - HYPERLIPIDEMIA, UNSPECIFIED Qualifiers: Hyperlipidemia type: pure hypercholesterolemia Qualified Code(s): E78.00 - Pure hypercholesterolemia, unspecified; E78.0 - Pure hypercholesterolemia (10) Hypertension Code(s): I10 - ESSENTIAL (PRIMARY) HYPERTENSION Qualifiers: Hypertension type: essential hypertension Qualified Code(s): I10 - Essential (primary) hypertension (11) S/P coronary artery stent placement Code(s): Z95.5 - PRESENCE OF CORONARY ANGIOPLASTY IMPLANT AND GRAFT (12) Supratherapeutic INR Code(s): R79.1 - ABNORMAL COAGULATION PROFILE
--- NOTE | 2017-11-09 09:12 | PN ---
Progress Note, Physician Chief Complaint: Pt A&Ox3; lower back pain; otherwise, asymptomatic. 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 As per EMS the patients systolic was noted to be in the 60s and they placed a PIV and started a liter of NS prior to arrival in the emergency department. The patient denies chest pain, shortness of breath, headache and dizziness. Denies fever, chills, nausea, vomit, diarrhea and constipation. Denies dysuria, frequency, urgency and hematuria. - Current Medication List Current Medications: Active Medications Aspirin (Ecotrin -) 81 mg PO DAILY [facility] Chlorhexidine Gluconate (Hibiclens For Decolonization -) 1 applic TP HS [facility] Clopidogrel Bisulfate (Plavix -) 75 mg PO DAILY [facility] Fludrocortisone Acetate (Florinef -) 0.05 mg PO DAILY [facility] Hydrocortisone Sodium Succinate (Solu-Cortef -) 100 mg IVPB TID [facility] Piperacillin Sod/Tazobactam (Sod 3.375 gm/ Dextrose) 50 mls @ 100 mls/hr IVPB Q8H-IV [facility]; Protocol Insulin Aspart (Novolog Vial Sliding Scale -) 1 vial SQ ACHS [facility]; Protocol Metoprolol Tartrate (Lopressor -) 25 mg PO BID [facility] Last Admin: 11/08/17 21:57 Dose: 25 mg Mupirocin (Bactroban Ointment (For Decolonization) -) 1 applic NS BID [facility] Stop: 11/10/17 21:59 Oxycodone HCl (Roxicodone -) 5 mg PO Q4H PRN PRN Reason: PAIN LEVEL 4 - 6 Oxycodone HCl (Roxicodone -) 10 mg PO Q4H PRN PRN Reason: PAIN LEVEL 7 - 10 Pantoprazole Sodium (Protonix Iv) 40 mg IVPUSH DAILY [facility] - Objective Vital Signs: Vital Signs Temperature 97.4 F L 11/09/17 06:00 Pulse Rate 72 11/09/17 08:00 Respiratory Rate 16 11/09/17 08:00 Blood Pressure 149/83 11/09/17 08:00 O2 Sat by Pulse Oximetry (%) 95 11/09/17 07:54 Constitutional: Yes: Calm Eyes: Yes: WNL HENT: Yes: WNL Neck: Yes: WNL Cardiovascular: Yes: S1 (varies in intensity) Respiratory: Yes: Regular Gastrointestinal: Yes: Soft ...Rectal Exam: Yes: Deferred Genitourinary: No: Anuria Breast(s): Yes: WNL Musculoskeletal: Yes: Back Pain, Muscle Weakness Extremities: Yes: Cool Edema: No Peripheral Pulses WNL: Yes Integumentary: Yes: WNL Neurological: Yes: Alert, Oriented Psychiatric: Yes: WNL Labs: CBC, BMP 11/09/17 05:30 11/09/17 05:30 INR, PTT INR 3.86 (0.83-1.09) H 11/09/17 05:30 - ....Imaging Other: Image Reviewed (telemetry: AF; periods of RVR) Problem List - Problems (1) Sepsis Assessment/Plan: [id number]; antibiotics per ID Code(s): A41.9 - SEPSIS, UNSPECIFIED ORGANISM Qualifiers: Sepsis type: sepsis due to unspecified organism Qualified Code(s): A41.9 - Sepsis, unspecified organism (2) Anemia Code(s): D64.9 - ANEMIA, UNSPECIFIED (3) Anxiety Code(s): F41.9 - ANXIETY DISORDER, UNSPECIFIED (4) Atrial fibrillation with rapid ventricular response Assessment/Plan: hypotension makes starting beta blockers problematic; may use digoxin if HR remains elevated. 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 transplanted heart: [place] heart Associated angina: without angina Qualified Code(s): I25.10 - Atherosclerotic heart disease of [place] coronary artery without angina pectoris (7) Cardiomyopathy Code(s): I42.9 - CARDIOMYOPATHY, UNSPECIFIED Qualifiers: Cardiomyopathy type: ischemic Qualified Code(s): I25.5 - Ischemic cardiomyopathy (8) Chronic systolic (congestive) heart failure Assessment/Plan: restart metoprolol, ACEI, aldactone when no longer hypotensive. F/u BUN/Cr, Is and Os, daily weight, electroltytes. Code(s): I50.22 - CHRONIC SYSTOLIC (CONGESTIVE) HEART FAILURE (9) Hyperlipidemia Code(s): E78.5 - HYPERLIPIDEMIA, UNSPECIFIED Qualifiers: Hyperlipidemia type: pure hypercholesterolemia Qualified Code(s): E78.00 - Pure hypercholesterolemia, unspecified; E78.0 - Pure hypercholesterolemia (10) Hypertension Code(s): I10 - ESSENTIAL (PRIMARY) HYPERTENSION Qualifiers: Hypertension type: essential hypertension Qualified Code(s): I10 - Essential (primary) hypertension (11) S/P coronary artery stent placement Code(s): Z95.5 - PRESENCE OF CORONARY ANGIOPLASTY IMPLANT AND GRAFT (12) Supratherapeutic INR Assessment/Plan: hold warfarin until INR < 2. Code(s): R79.1 - ABNORMAL COAGULATION PROFILE
--- NOTE | 2017-11-09 09:16 | PN ---
Progress Note, Physician Chief Complaint: Pt A&Ox3; no chest pain or SOB; Still weak; chronic lower back pain. 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 As per EMS the patients systolic was noted to be in the 60s and they placed a PIV and started a liter of NS prior to arrival in the emergency department. The patient denies chest pain, shortness of breath, headache and dizziness. Denies fever, chills, nausea, vomit, diarrhea and constipation. Denies dysuria, frequency, urgency and hematuria. - Current Medication List Current Medications: Active Medications Aspirin (Ecotrin -) 81 mg PO DAILY [facility] Chlorhexidine Gluconate (Hibiclens For Decolonization -) 1 applic TP HS [facility] Clopidogrel Bisulfate (Plavix -) 75 mg PO DAILY [facility] Fludrocortisone Acetate (Florinef -) 0.05 mg PO DAILY [facility] Hydrocortisone Sodium Succinate (Solu-Cortef -) 100 mg IVPB TID [facility] Piperacillin Sod/Tazobactam (Sod 3.375 gm/ Dextrose) 50 mls @ 100 mls/hr IVPB Q8H-IV [facility]; Protocol Insulin Aspart (Novolog Vial Sliding Scale -) 1 vial SQ ACHS [facility]; Protocol Metoprolol Tartrate (Lopressor -) 25 mg PO BID [facility] Last Admin: 11/08/17 21:57 Dose: 25 mg Mupirocin (Bactroban Ointment (For Decolonization) -) 1 applic NS BID [facility] Stop: 11/10/17 21:59 Oxycodone HCl (Roxicodone -) 5 mg PO Q4H PRN PRN Reason: PAIN LEVEL 4 - 6 Oxycodone HCl (Roxicodone -) 10 mg PO Q4H PRN PRN Reason: PAIN LEVEL 7 - 10 Pantoprazole Sodium (Protonix Iv) 40 mg IVPUSH DAILY [facility] - Objective Vital Signs: Vital Signs Temperature 97.4 F L 11/09/17 06:00 Pulse Rate 72 11/09/17 08:00 Respiratory Rate 16 11/09/17 08:00 Blood Pressure 149/83 11/09/17 08:00 O2 Sat by Pulse Oximetry (%) 95 11/09/17 07:54 Constitutional: Yes: No Distress Eyes: Yes: WNL HENT: Yes: WNL Neck: Yes: WNL Cardiovascular: Yes: Pulse Irregular Respiratory: Yes: Regular Gastrointestinal: Yes: Soft ...Rectal Exam: Yes: Deferred Genitourinary: No: Anuria Breast(s): Yes: WNL Musculoskeletal: Yes: Back Pain, Muscle Weakness Extremities: Yes: Cool Edema: No Peripheral Pulses WNL: Yes Integumentary: Yes: WNL Neurological: Yes: Alert, Oriented, Weakness Psychiatric: Yes: Other (anxiety) Labs: CBC, BMP 11/09/17 05:30 11/09/17 05:30 INR, PTT INR 3.86 (0.83-1.09) H 11/09/17 05:30 Problem List - Problems (1) Sepsis Code(s): A41.9 - SEPSIS, UNSPECIFIED ORGANISM Qualifiers: Sepsis type: sepsis due to unspecified organism Qualified Code(s): A41.9 - Sepsis, unspecified organism (2) Anemia Code(s): D64.9 - ANEMIA, UNSPECIFIED (3) Anxiety Code(s): F41.9 - ANXIETY DISORDER, UNSPECIFIED (4) Atrial fibrillation with rapid ventricular response Code(s): I48.91 - UNSPECIFIED ATRIAL FIBRILLATION (5) 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 transplanted heart: [place] heart Associated angina: without angina Qualified Code(s): I25.10 - Atherosclerotic heart disease of [place] coronary artery without angina pectoris (7) Cardiomyopathy Code(s): I42.9 - CARDIOMYOPATHY, UNSPECIFIED Qualifiers: Cardiomyopathy type: ischemic Qualified Code(s): I25.5 - Ischemic cardiomyopathy (8) Chronic systolic (congestive) heart failure Code(s): I50.22 - CHRONIC SYSTOLIC (CONGESTIVE) HEART FAILURE (9) Hyperlipidemia Code(s): E78.5 - HYPERLIPIDEMIA, UNSPECIFIED Qualifiers: Hyperlipidemia type: pure hypercholesterolemia Qualified Code(s): E78.00 - Pure hypercholesterolemia, unspecified; E78.0 - Pure hypercholesterolemia (10) Hypertension Code(s): I10 - ESSENTIAL (PRIMARY) HYPERTENSION Qualifiers: Hypertension type: essential hypertension Qualified Code(s): I10 - Essential (primary) hypertension (11) S/P coronary artery stent placement Code(s): Z95.5 - PRESENCE OF CORONARY ANGIOPLASTY IMPLANT AND GRAFT (12) Supratherapeutic INR Code(s): R79.1 - ABNORMAL COAGULATION PROFILE
--- NOTE | 2017-11-09 09:17 | PN ---
Progress Note, Physician Chief Complaint: Pt without complaints; pleasant, but not ceratin where he is. History of Present Illness: The patient is a 67 year old male (b. 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 As per EMS the patients systolic was noted to be in the 60s and they placed a PIV and started a liter of NS prior to arrival in the emergency department. The patient denies chest pain, shortness of breath, headache and dizziness. Denies fever, chills, nausea, vomit, diarrhea and constipation. Denies dysuria, frequency, urgency and hematuria. - Current Medication List Current Medications: Active Medications Aspirin (Ecotrin -) 81 mg PO DAILY [facility] Chlorhexidine Gluconate (Hibiclens For Decolonization -) 1 applic TP HS [facility] Clopidogrel Bisulfate (Plavix -) 75 mg PO DAILY [facility] Fludrocortisone Acetate (Florinef -) 0.05 mg PO DAILY [facility] Hydrocortisone Sodium Succinate (Solu-Cortef -) 100 mg IVPB TID [facility] Piperacillin Sod/Tazobactam (Sod 3.375 gm/ Dextrose) 50 mls @ 100 mls/hr IVPB Q8H-IV [facility]; Protocol Insulin Aspart (Novolog Vial Sliding Scale -) 1 vial SQ ACHS [facility]; Protocol Metoprolol Tartrate (Lopressor -) 25 mg PO BID [facility] Last Admin: 11/08/17 21:57 Dose: 25 mg Mupirocin (Bactroban Ointment (For Decolonization) -) 1 applic NS BID [facility] Stop: 11/10/17 21:59 Oxycodone HCl (Roxicodone -) 5 mg PO Q4H PRN PRN Reason: PAIN LEVEL 4 - 6 Oxycodone HCl (Roxicodone -) 10 mg PO Q4H PRN PRN Reason: PAIN LEVEL 7 - 10 Pantoprazole Sodium (Protonix Iv) 40 mg IVPUSH DAILY [facility] - Objective Vital Signs: Vital Signs Temperature 97.4 F L 11/09/17 06:00 Pulse Rate 72 11/09/17 08:00 Respiratory Rate 16 11/09/17 08:00 Blood Pressure 149/83 11/09/17 08:00 O2 Sat by Pulse Oximetry (%) 95 11/09/17 07:54 Constitutional: Yes: Calm Eyes: Yes: WNL HENT: Yes: WNL Neck: Yes: WNL Cardiovascular: Yes: Pulse Irregular Respiratory: Yes: Regular Gastrointestinal: Yes: Soft, Other ...Rectal Exam: Yes: Deferred Genitourinary: No: Anuria Musculoskeletal: Yes: Muscle Weakness Extremities: Yes: Cool Edema: No Peripheral Pulses WNL: Yes Integumentary: Yes: Other (ostomy site wihtout external drainage) Neurological: Yes: Alert, Weakness. No: Oriented Psychiatric: Yes: Other (?dementia) Labs: CBC, BMP 11/09/17 05:30 11/09/17 05:30 INR, PTT INR 3.86 (0.83-1.09) H 11/09/17 05:30 Abnormal Lab Results 11/23/17 11/24/17 11/24/17 05:30 05:30 05:30 WBC 19.3 H RBC 3.90 L Hgb 10.5 L Hct 33.5 L MCHC 31.2 L RDW 19.9 H Neutrophils % (Manual) 96.9 H Lymphocytes % (Manual) 1.1 L D Monocytes % (Manual) 1 L PT with INR INR PTT (Actin FS) 37.2 H 11/24/17 05:30 WBC RBC Hgb Hct MCHC RDW Neutrophils % (Manual) Lymphocytes % (Manual) Monocytes % (Manual) PT with INR 52.20 H INR 4.36 H* PTT (Actin FS) Problem List - Problems (1) Sepsis Assessment/Plan: antibiotics per ID Code(s): A41.9 - SEPSIS, UNSPECIFIED ORGANISM Qualifiers: Sepsis type: sepsis due to unspecified organism Qualified Code(s): A41.9 - Sepsis, unspecified organism (2) Anemia Assessment/Plan: f/u Hb +hematuria. Keep INR 2-3 for AF (though liver mets may be altering liver function). Hb stable. ASA and clopidogrel held due to hematuria. Code(s): D64.9 - ANEMIA, UNSPECIFIED (3) Anxiety Code(s): F41.9 - ANXIETY DISORDER, UNSPECIFIED (4) Atrial fibrillation with rapid ventricular response Assessment/Plan: on metoprolol for HR control. on warfarin for anticoagulation; problematic ontrolling INR (periods of supratherapeutic INR; pt has what appear to be extensive liver mets). 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 Started ARB (losartan 25 mg daily). Add aldactone later if BP, renal function, and electrolytes allow. This is problematic because of periods of hypotension; even losartan has had to be held lately. F/u BUN/Cr, Is and Os, daily weight, electrolytes. Code(s): I50.22 - CHRONIC SYSTOLIC (CONGESTIVE) HEART FAILURE (8) Hyperlipidemia Code(s): E78.5 - HYPERLIPIDEMIA, UNSPECIFIED Qualifiers: Hyperlipidemia type: pure hypercholesterolemia Qualified Code(s): E78.00 - Pure hypercholesterolemia, unspecified; E78.0 - Pure hypercholesterolemia (9) Hypertension Code(s): I10 - ESSENTIAL (PRIMARY) HYPERTENSION Qualifiers: Hypertension type: essential hypertension Qualified Code(s): I10 - Essential (primary) hypertension (10) S/P coronary artery stent placement Code(s): Z95.5 - PRESENCE OF CORONARY ANGIOPLASTY IMPLANT AND GRAFT (11) Supratherapeutic INR Code(s): R79.1 - ABNORMAL COAGULATION PROFILE
--- NOTE | 2017-11-09 09:40 | PN ---
Progress Note (short form) - Note Progress Note: awake and alert NAD Vital Signs Period Temp Pulse Resp BP Sys/Maynard Pulse Ox Last 24 Hr 97.4 F-98.5 F 62-94 11-18 135-150/70-83 95-97 cor-rrr lungs clear abd soft,nt +urostomy ext no edema CBC, BMP 11/09/17 05:30 11/09/17 05:30 Microbiology 11/05/17 08:55 Blood - Peripheral Venous Blood Culture - Preliminary NO GROWTH OBTAINED AFTER 96 HOURS, INCUBATION TO CONTINUE FOR 1 DAYS. 11/05/17 08:55 Blood - Peripheral Venous Blood Culture - Preliminary NO GROWTH OBTAINED AFTER 96 HOURS, INCUBATION TO CONTINUE FOR 1 DAYS. 11/05/17 08:55 Urine - Urine - Catheterized Urine Culture - Final Pseudomonas Aeruginosa Current Medications Aspirin (Ecotrin -) 81 mg PO DAILY [facility] Chlorhexidine Gluconate (Hibiclens For Decolonization -) 1 applic TP HS [facility] Clopidogrel Bisulfate (Plavix -) 75 mg PO DAILY [facility] Fludrocortisone Acetate (Florinef -) 0.05 mg PO DAILY [facility] Hydrocortisone Sodium Succinate (Solu-Cortef -) 100 mg IVPB TID [facility] Piperacillin Sod/Tazobactam (Sod 3.375 gm/ Dextrose) 50 mls @ 100 mls/hr IVPB Q8H-IV [facility]; Protocol Insulin Aspart (Novolog Vial Sliding Scale -) 1 vial SQ ACHS [facility]; Protocol Metoprolol Tartrate (Lopressor -) 25 mg PO BID [facility] Last Admin: 11/08/17 21:57 Dose: 25 mg Mupirocin (Bactroban Ointment (For Decolonization) -) 1 applic NS BID [facility] Stop: 11/10/17 21:59 Oxycodone HCl (Roxicodone -) 5 mg PO Q4H PRN PRN Reason: PAIN LEVEL 4 - 6 Oxycodone HCl (Roxicodone -) 10 mg PO Q4H PRN PRN Reason: PAIN LEVEL 7 - 10 Pantoprazole Sodium (Protonix Iv) 40 mg IVPUSH DAILY [facility] a/p sepsis- pseudomonas uti suspected adrenal insufficiency due to adrenal mass (new)-on steroids metastatic bladder cancer CAD- s/p stent leukocytosis most likely infection and steroids Problem List - Problems (1) Sepsis Code(s): A41.9 - SEPSIS, UNSPECIFIED ORGANISM Qualifiers: Sepsis type: sepsis due to unspecified organism Qualified Code(s): A41.9 - Sepsis, unspecified organism (2) Hydronephrosis Code(s): N13.30 - UNSPECIFIED HYDRONEPHROSIS (3) UTI (urinary tract infection) Code(s): N39.0 - URINARY TRACT INFECTION, SITE NOT SPECIFIED Qualifiers: Urinary tract infection type: acute cystitis Hematuria presence: with hematuria Qualified Code(s): N30.01 - Acute cystitis with hematuria (4) Supratherapeutic INR Code(s): R79.1 - ABNORMAL COAGULATION PROFILE (5) 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
[2017-11-09] MEDS: PANTOPRAZOLE SODIUM 40 MG VIAL IVPUSH SCH (10:19)
[2017-11-09] MEDS: CLOPIDOGREL BISULFATE 75 MG TABLET (FP) PO SCH (10:19)
[2017-11-09] MEDS: METOPROLOL TARTRATE 25 MG TABLET (FP) PO SCH ×2 (10:19→21:24)
[2017-11-09] MEDS: ASPIRIN COATED 81 MG TABLET.EC PO SCH (10:19)
[2017-11-09] MEDS ORDERED: PT OWN MED DRAWER 7, Y5N ONE ×3 (10:23→21:13)
[2017-11-09] MEDS: FLUDROCORTISONE ACETATE 0.1 MG TABLET (FP) PO SCH (10:25)
[2017-11-09] MEDS: MUPIROCIN 2% TOPICAL OINTMENT FOR DECOLONIZATION NS SCH ×2 (10:28→21:26)
--- NOTE | 2017-11-09 11:11 | PN ---
Progress Note, Physician Chief Complaint: seen and examined in ICU awake alert - Current Medication List Current Medications: Active Medications Aspirin (Ecotrin -) 81 mg PO DAILY [facility] Last Admin: 11/09/17 10:19 Dose: 81 mg Chlorhexidine Gluconate (Hibiclens For Decolonization -) 1 applic TP HS [facility] Clopidogrel Bisulfate (Plavix -) 75 mg PO DAILY [facility] Last Admin: 11/09/17 10:19 Dose: 75 mg Fludrocortisone Acetate (Florinef -) 0.05 mg PO DAILY [facility] Last Admin: 11/09/17 10:25 Dose: 0.05 mg Hydrocortisone Sodium Succinate (Solu-Cortef -) 100 mg IVPB TID [facility] Piperacillin Sod/Tazobactam (Sod 3.375 gm/ Dextrose) 50 mls @ 100 mls/hr IVPB Q8H-IV [facility]; Protocol Last Admin: 11/09/17 10:21 Dose: 100 mls/hr Insulin Aspart (Novolog Vial Sliding Scale -) 1 vial SQ ACHS [facility]; Protocol Metoprolol Tartrate (Lopressor -) 25 mg PO BID [facility] Last Admin: 11/09/17 10:19 Dose: 25 mg Mupirocin (Bactroban Ointment (For Decolonization) -) 1 applic NS BID [facility] Stop: 11/10/17 21:59 Last Admin: 11/09/17 10:28 Dose: 1 applic Oxycodone HCl (Roxicodone -) 5 mg PO Q4H PRN PRN Reason: PAIN LEVEL 4 - 6 Oxycodone HCl (Roxicodone -) 10 mg PO Q4H PRN PRN Reason: PAIN LEVEL 7 - 10 Pantoprazole Sodium (Protonix Iv) 40 mg IVPUSH DAILY [facility] Last Admin: 11/09/17 10:19 Dose: 40 mg - Objective Vital Signs: Vital Signs Temperature 97.6 F 11/09/17 10:00 Pulse Rate 74 11/09/17 10:00 Respiratory Rate 16 11/09/17 10:00 Blood Pressure 141/70 11/09/17 10:00 O2 Sat by Pulse Oximetry (%) 95 11/09/17 07:54 Constitutional: Yes: Calm Cardiovascular: Yes: Regular Rate and Rhythm, S1, S2 Respiratory: Yes: CTA Bilaterally Gastrointestinal: Yes: Normal Bowel Sounds, Soft Neurological: Yes: Alert Labs: CBC, BMP 11/09/17 05:30 11/09/17 05:30 INR, PTT INR 3.86 (0.83-1.09) H 11/09/17 05:30 Problem List - Problems (1) Adrenal mass Assessment/Plan: endocrine on board steroids hydrocortisone 100mg tid andrenal lesion seen on CT scan Code(s): E27.9 - DISORDER OF ADRENAL GLAND, UNSPECIFIED (2) Atrial fibrillation Assessment/Plan: metoprolol bid on aspirin Code(s): I48.91 - UNSPECIFIED ATRIAL FIBRILLATION Qualifiers: Atrial fibrillation type: persistent Qualified Code(s): I48.1 - Persistent atrial fibrillation (3) 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 transplanted heart: [place] heart Associated angina: without angina Qualified Code(s): I25.10 - Atherosclerotic heart disease of [place] coronary artery without angina pectoris (5) Sepsis Assessment/Plan: Microbiology 11/05/17 08:55 Urine - Urine - Catheterized Urine Culture - Final Pseudomonas Aeruginosa on zosyn Code(s): A41.9 - SEPSIS, UNSPECIFIED ORGANISM Qualifiers: Sepsis type: sepsis due to unspecified organism Qualified Code(s): A41.9 - Sepsis, unspecified organism
--- NOTE | 2017-11-09 12:07 | PN ---
Teaching Attending Note Name of Resident: Durga Crystal ATTENDING PHYSICIAN STATEMENT I saw and evaluated the patient. I reviewed the resident's note and discussed the case with the resident. I agree with the resident's findings and plan as documented. SUBJECTIVE: Pt seen and examined in the ICU. No issues overnight. No specific complaints this AM. No fevers recorded. OBJECTIVE: Vital Signs Period Temp Pulse Resp BP Sys/Maynard Pulse Ox Last 24 Hr 97.4 F-98.5 F 62-94 - 135-150/70-83 95-97 Intake & Output 11/06/17 11/07/17 11/08/17 11/09/17 23:59 23:59 23:59 23:59 Intake Total 3557.5 1535 980 170 Output Total 2000 1700 2100 700 Balance 1557.5 -165 -1120 -530 Weight 83.461 kg 85.332 kg 85.984 kg 85.814 kg Gen: NAD at rest Heart: RRR Lung: decreased breath sounds at the bases Abd: soft, nontender Ext: no edema CBC, BMP 11/09/17 05:30 11/09/17 05:30 Active Medications Aspirin (Ecotrin -) 81 mg PO DAILY [facility] Last Admin: 11/09/17 10:19 Dose: 81 mg Chlorhexidine Gluconate (Hibiclens For Decolonization -) 1 applic TP HS [facility] Clopidogrel Bisulfate (Plavix -) 75 mg PO DAILY [facility] Last Admin: 11/09/17 10:19 Dose: 75 mg Fludrocortisone Acetate (Florinef -) 0.05 mg PO DAILY [facility] Last Admin: 11/09/17 10:25 Dose: 0.05 mg Hydrocortisone Sodium Succinate (Solu-Cortef -) 100 mg IVPB TID [facility] Piperacillin Sod/Tazobactam (Sod 3.375 gm/ Dextrose) 50 mls @ 100 mls/hr IVPB Q8H-IV [facility]; Protocol Last Admin: 11/09/17 10:21 Dose: 100 mls/hr Insulin Aspart (Novolog Vial Sliding Scale -) 1 vial SQ ACHS [facility]; Protocol Metoprolol Tartrate (Lopressor -) 25 mg PO BID [facility] Last Admin: 11/09/17 10:19 Dose: 25 mg Mupirocin (Bactroban Ointment (For Decolonization) -) 1 applic NS BID [facility] Stop: 11/10/17 21:59 Last Admin: 11/09/17 10:28 Dose: 1 applic Oxycodone HCl (Roxicodone -) 5 mg PO Q4H PRN PRN Reason: PAIN LEVEL 4 - 6 Oxycodone HCl (Roxicodone -) 10 mg PO Q4H PRN PRN Reason: PAIN LEVEL 7 - 10 Pantoprazole Sodium (Protonix Iv) 40 mg IVPUSH DAILY [facility] Last Admin: 11/09/17 10:19 Dose: 40 mg ASSESSMENT AND PLAN: UTI Septic Shock improved h/o Bladder Ca s/p Cystectomy Acute on Chronic Renal Failure improving Adrenal Insufficiency Atrial Fibrillation HTN DM - continue antibiotics - monitor urine output, creatinine - continue steroids - PO as tolerated - DVT prophylaxis - can monitor on floor
--- NOTE | 2017-11-09 12:21 | PN ---
Progress Note, Physician - Current Medication List Current Medications: Active Medications Aspirin (Ecotrin -) 81 mg PO DAILY [facility] Last Admin: 11/09/17 10:19 Dose: 81 mg Chlorhexidine Gluconate (Hibiclens For Decolonization -) 1 applic TP HS [facility] Clopidogrel Bisulfate (Plavix -) 75 mg PO DAILY [facility] Last Admin: 11/09/17 10:19 Dose: 75 mg Fludrocortisone Acetate (Florinef -) 0.05 mg PO DAILY [facility] Last Admin: 11/09/17 10:25 Dose: 0.05 mg Hydrocortisone Sodium Succinate (Solu-Cortef -) 100 mg IVPB TID [facility] Piperacillin Sod/Tazobactam (Sod 3.375 gm/ Dextrose) 50 mls @ 100 mls/hr IVPB Q8H-IV [facility]; Protocol Last Admin: 11/09/17 10:21 Dose: 100 mls/hr Insulin Aspart (Novolog Vial Sliding Scale -) 1 vial SQ ACHS [facility]; Protocol Last Admin: 11/09/17 12:06 Dose: 2 units Metoprolol Tartrate (Lopressor -) 25 mg PO BID [facility] Last Admin: 11/09/17 10:19 Dose: 25 mg Mupirocin (Bactroban Ointment (For Decolonization) -) 1 applic NS BID [facility] Stop: 11/10/17 21:59 Last Admin: 11/09/17 10:28 Dose: 1 applic Oxycodone HCl (Roxicodone -) 5 mg PO Q4H PRN PRN Reason: PAIN LEVEL 4 - 6 Oxycodone HCl (Roxicodone -) 10 mg PO Q4H PRN PRN Reason: PAIN LEVEL 7 - 10 Pantoprazole Sodium (Protonix Iv) 40 mg IVPUSH DAILY [facility] Last Admin: 11/09/17 10:19 Dose: 40 mg - Objective Vital Signs: Vital Signs Temperature 97.6 F 11/09/17 10:00 Pulse Rate 74 11/09/17 10:00 Respiratory Rate 16 11/09/17 10:00 Blood Pressure 141/70 11/09/17 10:00 O2 Sat by Pulse Oximetry (%) 95 11/09/17 07:54 Eyes: Yes: WNL, Conjunctiva Clear, EOM Intact HENT: Yes: WNL, Atraumatic, Normocephalic Neck: Yes: WNL, Supple, Trachea Midline Cardiovascular: Yes: WNL, Regular Rate and Rhythm Respiratory: Yes: WNL, Regular, CTA Bilaterally Gastrointestinal: Yes: WNL, Normal Bowel Sounds Genitourinary: Yes: WNL Musculoskeletal: Yes: WNL Extremities: Yes: WNL Edema: No Integumentary: Yes: WNL Neurological: Yes: WNL, Alert, Oriented ...Motor Strength: WNL Psychiatric: Yes: WNL Labs: CBC, BMP 11/09/17 05:30 11/09/17 05:30 INR, PTT INR 3.86 (0.83-1.09) H 11/09/17 05:30 Assessment/Plan - Problems (1) Sepsis Assessment/Plan: [id number]; antibiotics per ID Code(s): A41.9 - SEPSIS, UNSPECIFIED ORGANISM Qualifiers: Sepsis type: sepsis due to unspecified organism Qualified Code(s): A41.9 - Sepsis, unspecified organism (2) Anemia Code(s): D64.9 - ANEMIA, UNSPECIFIED (3) Anxiety Code(s): F41.9 - ANXIETY DISORDER, UNSPECIFIED (4) Atrial fibrillation with rapid ventricular response Assessment/Plan: Pt;s HR again became tachycardia; now with elevated BP. Will restart metoprolol tartrate 25 mg bid; f/u HR and BP. Restart lisinopril and aldactone gradually, as BP and renal/electrolytes allow. 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 transplanted heart: [place] heart Associated angina: without angina Qualified Code(s): I25.10 - Atherosclerotic heart disease of [place] coronary artery without angina pectoris (7) Cardiomyopathy Code(s): I42.9 - CARDIOMYOPATHY, UNSPECIFIED Qualifiers: Cardiomyopathy type: ischemic Qualified Code(s): I25.5 - Ischemic cardiomyopathy (8) Chronic systolic (congestive) heart failure Code(s): I50.22 - CHRONIC SYSTOLIC (CONGESTIVE) HEART FAILURE (9) Hyperlipidemia Code(s): E78.5 - HYPERLIPIDEMIA, UNSPECIFIED Qualifiers: Hyperlipidemia type: pure hypercholesterolemia Qualified Code(s): E78.00 - Pure hypercholesterolemia, unspecified; E78.0 - Pure hypercholesterolemia (10) Hypertension Code(s): I10 - ESSENTIAL (PRIMARY) HYPERTENSION Qualifiers: Hypertension type: essential hypertension Qualified Code(s): I10 - Essential (primary) hypertension (11) S/P coronary artery stent placement Code(s): Z95.5 - PRESENCE OF CORONARY ANGIOPLASTY IMPLANT AND GRAFT (12) Supratherapeutic INR Code(s): R79.1 - ABNORMAL COAGULATION PROFILE CC time 35 min
[2017-11-09 12:44] LABS: ACANTHOCYTES 1+; ANISOCYTOSIS 1+; MACROCYTOSIS 0; PLATELET ESTIMATE NORMAL
--- NOTE | 2017-11-09 13:25 | PN ---
Physical Exam: SUBJECTIVE: Patient seen and examined. No acute events overnight. Pt. endorses some numbness in feet and back that has been present since before admission. OBJECTIVE: Vital Signs Period Temp Pulse Resp BP Sys/Maynard Pulse Ox Last 24 Hr 97.4 F-98.5 F 62-94 11-18 135-153/70-87 95-97 GENERAL: The patient is awake, alert, and fully oriented, lying in bed in no acute distress. HEAD: Normal with no signs of gross trauma. EYES: sclera anicteric, conjunctiva clear. No ptosis. ENT: Ears normal, nares patent, moist mucous membranes. LUNGS: Breath sounds equal, clear to auscultation bilaterally, no wheezes, no crackles, no accessory muscle use. HEART: Regular rate and rhythm, S1, S2 without murmur, no JVD ABDOMEN: Soft, nontender, nondistended, bowel sounds sluggish, no guarding, no rebound EXTREMITIES: 2+ pulses in all extremities, warm, well-perfused, no edema, no calf tenderness. NEUROLOGICAL: Normal speech, gait not observed. PSYCH: Normal mood, normal affect. SKIN: Warm, dry, normal turgor Laboratory Results - last 24 hr 11/08/17 11/08/17 11/09/17 17:36 23:00 05:30 WBC 15.3 H RBC 4.02 Hgb 10.7 L Hct 33.2 L MCV 82.7 MCH 26.5 MCHC 32.1 RDW 16.5 H Plt Count 404 MPV 9.0 Absolute Neuts (auto) 14.2 H Neutrophils % 93.1 H Neutrophils % (Manual) 95.7 H Band Neutrophils % 0.0 Lymphocytes % 2.4 L Lymphocytes % (Manual) 1.1 L D Monocytes % 4.3 Monocytes % (Manual) 3 L Eosinophils % 0.1 D Eosinophils % (Manual) 0.0 Basophils % 0.1 Basophils % (Manual) 0.0 Myelocytes % (Man) 0 Promyelocytes % (Man) 0 Blast Cells % (Manual) 0 Nucleated RBC % 0 Metamyelocytes 0 Hypochromia 0 Platelet Estimate Normal Platelet Comment Present Polychromasia 0 Poikilocytosis 1+ Anisocytosis 1+ Microcytosis 1+ Macrocytosis 0 Spherocytes 1+ Acanthocytes (Spur) 1+ PT with INR INR Sodium Potassium Chloride Carbon Dioxide Anion Gap BUN Creatinine Creat Clearance w eGFR POC Glucometer 148.54209 167.14555 Random Glucose Calcium Phosphorus Magnesium Total Bilirubin AST ALT Alkaline Phosphatase Total Protein Albumin 11/09/17 11/09/17 11/09/17 05:30 05:30 05:30 WBC RBC Hgb Hct MCV MCH MCHC RDW Plt Count MPV Absolute Neuts (auto) Neutrophils % Neutrophils % (Manual) Band Neutrophils % Lymphocytes % Lymphocytes % (Manual) Monocytes % Monocytes % (Manual) Eosinophils % Eosinophils % (Manual) Basophils % Basophils % (Manual) Myelocytes % (Man) Promyelocytes % (Man) Blast Cells % (Manual) Nucleated RBC % Metamyelocytes Hypochromia Platelet Estimate Platelet Comment Polychromasia Poikilocytosis Anisocytosis Microcytosis Macrocytosis Spherocytes Acanthocytes (Spur) PT with INR 46.20 H INR 3.86 H Sodium 140 Potassium 3.8 Chloride 111 H Carbon Dioxide 15 L Anion Gap 14 BUN 28 H Creatinine 1.1 Creat Clearance w eGFR > 60 POC Glucometer 147.34323 Random Glucose 121 H Calcium 8.9 Phosphorus 2.7 Magnesium 1.9 Total Bilirubin 0.3 AST 14 L ALT 24 Alkaline Phosphatase 194 H Total Protein 5.9 L Albumin 2.0 L 11/09/17 12:02 WBC RBC Hgb Hct MCV MCH MCHC RDW Plt Count MPV Absolute Neuts (auto) Neutrophils % Neutrophils % (Manual) Band Neutrophils % Lymphocytes % Lymphocytes % (Manual) Monocytes % Monocytes % (Manual) Eosinophils % Eosinophils % (Manual) Basophils % Basophils % (Manual) Myelocytes % (Man) Promyelocytes % (Man) Blast Cells % (Manual) Nucleated RBC % Metamyelocytes Hypochromia Platelet Estimate Platelet Comment Polychromasia Poikilocytosis Anisocytosis Microcytosis Macrocytosis Spherocytes Acanthocytes (Spur) PT with INR INR Sodium Potassium Chloride Carbon Dioxide Anion Gap BUN Creatinine Creat Clearance w eGFR POC Glucometer [phone] Random Glucose Calcium Phosphorus Magnesium Total Bilirubin AST ALT Alkaline Phosphatase Total Protein Albumin Active Medications Current Medications Aspirin (Ecotrin -) 81 mg PO DAILY [facility] Last Admin: 11/09/17 10:19 Dose: 81 mg Chlorhexidine Gluconate (Hibiclens For Decolonization -) 1 applic TP HS [facility] Clopidogrel Bisulfate (Plavix -) 75 mg PO DAILY [facility] Last Admin: 11/09/17 10:19 Dose: 75 mg Fludrocortisone Acetate (Florinef -) 0.05 mg PO DAILY [facility] Last Admin: 11/09/17 10:25 Dose: 0.05 mg Hydrocortisone Sodium Succinate (Solu-Cortef -) 100 mg IVPB TID [facility] Piperacillin Sod/Tazobactam (Sod 3.375 gm/ Dextrose) 50 mls @ 100 mls/hr IVPB Q8H-IV [facility]; Protocol Last Admin: 11/09/17 10:21 Dose: 100 mls/hr Insulin Aspart (Novolog Vial Sliding Scale -) 1 vial SQ ACHS [facility]; Protocol Last Admin: 11/09/17 12:06 Dose: 2 units Metoprolol Tartrate (Lopressor -) 25 mg PO BID [facility] Last Admin: 11/09/17 10:19 Dose: 25 mg Mupirocin (Bactroban Ointment (For Decolonization) -) 1 applic NS BID [facility] Stop: 11/10/17 21:59 Last Admin: 11/09/17 10:28 Dose: 1 applic Oxycodone HCl (Roxicodone -) 5 mg PO Q4H PRN PRN Reason: PAIN LEVEL 4 - 6 Oxycodone HCl (Roxicodone -) 10 mg PO Q4H PRN PRN Reason: PAIN LEVEL 7 - 10 Pantoprazole Sodium (Protonix Iv) 40 mg IVPUSH DAILY [facility] Last Admin: 11/09/17 10:19 Dose: 40 mg ASSESSMENT/PLAN: A 67 y.o. M w/ PMHx. of A.Fib (on warfarin), sCHF, CAD, HTN, GERD, s/p cystectomy and ileal conduit for Metastatic Bladder Ca (Lungs, Liver, L2-L4 vertebrae and right adrenal gland), and recent (discharged 11/04/17) hospital admission for UTI( completed Amoxicillin for E.Coli and Enterrococcus Faecium) presents to the ED with hypotension, tachycardia and generalized weakness. #Cardiovascular -Hypotension 2/2 septic shock and adrenal insufficiency -resolved D/c Levophed start Fludrocortisone 50mcg Daily monitor CVP, currecntly ~10 Increase Hydrocortisone to 100mg TID Central Line removed 11/07/17 Use Lopressor 5mg to control heart rate until we restart home medications Hold Spironolactone and Lisinopril will consider restarting in AM VBG appreciated Lactic Acid 2.4-->1.5 -HTN c/w Metoprolol 25mg BID restart Lisinopril and Aldactone gradually as BP, electrolytes and renal function will allow -CAD Hardware visible on CT scan c/w ASA and Plavix Troponin - EKG appreciated: A.Fib w/ RVR, QTc: 483, Monitor QTc, especially with QT prolonging drugs. -CHF Hold home Lasix Echo(10/28/17): severe global hypokinesis of LV, severe reduced LV function, normal LV size Cardiology consult appreciated (Dr. Alvarado) Strict Is & Os -A.Fib Hold warfarin as INR is supra therapeutic to 3.86, as per 2012 ACCP guidelines we can hold warfarin and monitor for bleeding. Vitamin K is not indicated at this time. If bleeding is noted can give 1-2.5mg oral Vitamin K. If severe bleeding is noted can give FFP as this acts faster. Started Metoprolol 25mg BID #Endocrinology -Adrenal Insufficiency Consult with Endocrinology (Dr. Ortiz) appreciated- Recommends Hydrocortisone 100mg TID TSH wnl, f/u free T4, T3, cortisol PM levels. Normal AM(~6am) levels range from 10-20mcg/dL. Normal PM(after 4PM) levels range from 3-10mcg/dL Cortisal AM levels( 11/07/17)- 37.2 c/w Fludrocortisone 50 mcg daily C/w hydrocortisone to 100mg TID #Pulmonology -Pulmonary Metastases -stable CXR (11/05/17) confirmed pulmonary nodules, no acute pathology CT Scan (11/05/17): shows multiple mets to liver, lungs, worsening hydronephrosis , suspicious for distal ureteral strictures at conduit, worsening L2-L4 bone metastases, new right adrenal metastases stable #Urology -s/p cystectomy and ileal conduit for Metastatic Bladder Ca Started Oxycodone 5mg and 10mg for pain 4-6 and 7-10 respectively. S/p suprapubic catheter placement Urology Consult appreciated (Dr. Ruddy Mcguire)- if renal function continues to decline may need percutaneous nephrostomy tube, mild hydronephrosis is not concerning at this time Nephrology Consult appreciated (Dr. Baltazar) #Infectious Disease -Septic Shock 2/2 complicated UTI-resolving UCx. growing 100k+ CFUs Psuedomanas UA positive for bacteria, yeast, WBCs and 3+ LE received 1 dose of Vanc and Zosyn in ED, will D/C Vanc at this time per ID Given loading dose of Cancidas(Capsofungin) 70mg. Will reassess tomorrow if we need to continue with 50mg maintenance dose. Did not give Diflucan as that would further increase warfarin levels which are already supratherapeutic c/w Zosyn 3.375- (renally dosed) random Vancomycin level: 10.8 f/u BCx. ID consult appreciated (Dr. Gaines) #Psychiatry -Depression stable hold Citalopram 10mg #F/E/N -D/C IVF, encourage PO intake -Strict Is & Os -monitor electrolytes and replete as necessary -NPO #PPx. -DVT Heparin SQ ASA Plavix Hold Warfarin as INR is supratherapeutic @ 3.86 -GI c/w IV Protonix 50mg #Dispo -Med/Surg Visit type - Emergency Visit Emergency Visit: Yes ED Registration Date: 11/05/17 Care time: The patient presented to the Emergency Department on the above date and was hospitalized for further evaluation of their emergent condition. - New Patient This patient is new to me today: No - Critical Care Critical Care patient: Yes Total Critical Care Time (in minutes): 40 Critical Care Statement: The care of this patient involved high complexity decision making to prevent further life threatening deterioration of the patient 's condition and/or to evaluate & treat vital organ system(s) failure or risk of failure. - Discharge Referral Referred to [facility] Med [facility] No
--- NOTE | 2017-11-09 17:23 | PN ---
Progress Note, Physician History of Present Illness: Pt seen and examined at bedside. He is awake and appears comfortable. - Current Medication List Current Medications: Active Medications Aspirin (Ecotrin -) 81 mg PO DAILY [facility] Last Admin: 11/09/17 10:19 Dose: 81 mg Chlorhexidine Gluconate (Hibiclens For Decolonization -) 1 applic TP HS [facility] Clopidogrel Bisulfate (Plavix -) 75 mg PO DAILY [facility] Last Admin: 11/09/17 10:19 Dose: 75 mg Fludrocortisone Acetate (Florinef -) 0.05 mg PO DAILY [facility] Last Admin: 11/09/17 10:25 Dose: 0.05 mg Hydrocortisone Sodium Succinate (Solu-Cortef -) 100 mg IVPB TID [facility] Last Admin: 11/09/17 15:52 Dose: 100 mg Piperacillin Sod/Tazobactam (Sod 3.375 gm/ Dextrose) 50 mls @ 100 mls/hr IVPB Q8H-IV [facility]; Protocol Last Admin: 11/09/17 10:21 Dose: 100 mls/hr Insulin Aspart (Novolog Vial Sliding Scale -) 1 vial SQ ACHS [facility]; Protocol Last Admin: 11/09/17 17:01 Dose: Not Given Metoprolol Tartrate (Lopressor -) 25 mg PO BID [facility] Last Admin: 11/09/17 10:19 Dose: 25 mg Mupirocin (Bactroban Ointment (For Decolonization) -) 1 applic NS BID [facility] Stop: 11/10/17 21:59 Last Admin: 11/09/17 10:28 Dose: 1 applic Oxycodone HCl (Roxicodone -) 5 mg PO Q4H PRN PRN Reason: PAIN LEVEL 4 - 6 Last Admin: 11/09/17 15:26 Dose: 5 mg Oxycodone HCl (Roxicodone -) 10 mg PO Q4H PRN PRN Reason: PAIN LEVEL 7 - 10 Pantoprazole Sodium (Protonix Iv) 40 mg IVPUSH DAILY [facility] Last Admin: 11/09/17 10:19 Dose: 40 mg - Objective Vital Signs: Vital Signs Temperature 98.6 F 11/09/17 17:04 Pulse Rate 74 11/09/17 17:04 Respiratory Rate 20 11/09/17 17:04 Blood Pressure 145/84 11/09/17 17:04 O2 Sat by Pulse Oximetry (%) 95 10/01/18 07:54 Constitutional: Yes: Calm Eyes: Yes: Conjunctiva Clear HENT: Yes: Atraumatic Neck: Yes: Supple Cardiovascular: Yes: S1, S2 Respiratory: Yes: CTA Bilaterally Genitourinary: Yes: Other (ileal conduit) Musculoskeletal: Yes: Muscle Weakness Edema: No Neurological: Yes: Oriented Labs: CBC, BMP 11/09/17 05:30 11/09/17 05:30 INR, PTT INR 3.86 (0.83-1.09) H 11/09/17 05:30 Assessment/Plan Current Medications Generic Name Dose Route Start Last Admin Trade Name Freq PRN Reason Stop Dose Admin Aspirin 81 mg 11/09/17 10:00 11/09/17 10:19 Ecotrin - PO 81 mg DAILY [facility] Administration Chlorhexidine Gluconate 1 applic 11/09/17 22:00 Hibiclens For Decolonization - TP HS [facility] Clopidogrel Bisulfate 75 mg 11/09/17 10:00 11/09/17 10:19 Plavix - PO 75 mg DAILY [facility] Administration Fludrocortisone Acetate 0.05 mg 11/09/17 10:00 11/09/17 10:25 Florinef - PO 0.05 mg DAILY [facility] Administration Hydrocortisone Sodium Succinate 100 mg 11/09/17 14:00 11/09/17 15:52 Solu-Cortef - IVPB 100 mg TID [facility] Administration Piperacillin Sod/Tazobactam 50 mls @ 100 mls/hr 11/09/17 10:00 11/09/17 10:21 Sod 3.375 gm/ Dextrose IVPB 100 mls/hr Q8H-IV [facility] Administration Protocol Insulin Aspart 1 vial 11/09/17 07:00 11/09/17 17:01 Novolog Vial Sliding Scale - SQ Not Given ACHS [facility] Protocol Metoprolol Tartrate 25 mg 11/08/17 22:00 11/09/17 10:19 Lopressor - PO 25 mg BID [facility] Administration Mupirocin 1 applic 11/09/17 10:00 11/09/17 10:28 Bactroban Ointment (For Decolonization) - NS 11/10/17 21:59 1 applic BID [facility] Administration Oxycodone HCl 5 mg 11/09/17 06:58 11/09/17 15:26 Roxicodone - PO 5 mg Q4H PRN Administration PAIN LEVEL 4 - 6 Oxycodone HCl 10 mg 11/09/17 06:58 Roxicodone - PO Q4H PRN PAIN LEVEL 7 - 10 Pantoprazole Sodium 40 mg 11/09/17 10:00 11/09/17 10:19 Protonix Iv IVPUSH 40 mg DAILY [facility] Administration Impression 1. CKD 2. altered mental status 3. a-fib 4. DM 5. HTN 6. hx bladder cancer 7. leukocytosis 8. sepsis 9. hyperkalemia 10. chon Plan - repeat labs in am - pt off of fluids - taper steroids - endocrine follow up - can restart yaima as tolerated - monitor bp Dr Baltazar
[2017-11-09] MEDS: CHLORHEXIDINE GLUCONATE 4% CLEANSER FOR DECOLONIZATION TP SCH (22:13)
[2017-11-10] MEDS ORDERED: DEXTROSE 5%-WATER - 50 ML IVPB ONE ×3 (02:46→17:22)
[2017-11-10] MEDS ORDERED: PIPERACILLIN/TAZOBACTAM 3.375 GM VIAL IVPB ONE ×3 (02:46→17:22)
[2017-11-10] MEDS: PIPERACILLIN/TAZOB 3.375 GM 3.375 GM in DEXTROSE 5%-WATER - 50 ML IVPB SCH ×3 (02:56→17:39)
[2017-11-10] MEDS: HYDROCORTISONE SOD SUCCINATE 100 MG/2 ML VIAL IVPB SCH ×3 (05:13→21:52)
[2017-11-10] MEDS: INSULIN SLIDING SCALE (NOVOLOG) 1 VIAL SQ SCH ×4 (06:34→21:53)
[2017-11-10 07:16] LABS: HEMATOCRIT 33.4 % (35.4-49); HEMOGLOBIN 10.6 GM/dL (11.7-16.9); MCH 26.1 pg (25.7-33.7); MCHC 31.6 g/dl (32.0-35.9); MEAN CELL VOLUME 82.6 fl (80-96); MEAN PLT VOLUME 8.9 fl (7.5-11.1); PLATELET COUNT 356 K/MM3 (134-434); RBC 4.04 M/mm3 (4.00-5.60); RDW 16.8 % (11.9-15.9); WHITE BLOOD COUNT 15.9 K/mm3 (4.0-10.0)
[2017-11-10 08:05] LABS: ANION GAP 13 MMOL/L (8-16); BLOOD UREA NITROGEN 33 mg/dL (7-18); CALCIUM 8.7 mg/dL (8.5-10.1); CHLORIDE 112 mmol/L (98-107); CO2 16 mmol/L (21-32); CREATININE 1.1 mg/dL (0.55-1.3); GLUCOSE,RANDOM 161 mg/dL (74-106); MAGNESIUM 1.9 mg/dL (1.8-2.4); PHOSPHOROUS 2.7 mg/dL (2.5-4.9); POTASSIUM 3.3 mmol/L (3.5-5.1); SODIUM 141 mmol/L (136-145)
[2017-11-10] MEDS ORDERED: POTASSIUM CHLORIDE TABS 20 MEQ TABLET.ER (FP) PO ONE (08:46)
--- NOTE | 2017-11-10 08:58 | PN ---
Progress Note, Physician - Current Medication List Current Medications: Active Medications Aspirin (Ecotrin -) 81 mg PO DAILY [facility] Last Admin: 11/09/17 10:19 Dose: 81 mg Chlorhexidine Gluconate (Hibiclens For Decolonization -) 1 applic TP HS [facility] Last Admin: 11/09/17 22:13 Dose: 1 applic Clopidogrel Bisulfate (Plavix -) 75 mg PO DAILY [facility] Last Admin: 11/09/17 10:19 Dose: 75 mg Fludrocortisone Acetate (Florinef -) 0.05 mg PO DAILY [facility] Last Admin: 11/09/17 10:25 Dose: 0.05 mg Hydrocortisone Sodium Succinate (Solu-Cortef -) 100 mg IVPB TID [facility] Last Admin: 11/10/17 05:13 Dose: 100 mg Piperacillin Sod/Tazobactam (Sod 3.375 gm/ Dextrose) 50 mls @ 100 mls/hr IVPB Q8H-IV [facility]; Protocol Last Admin: 11/10/17 02:56 Dose: 100 mls/hr Insulin Aspart (Novolog Vial Sliding Scale -) 1 vial SQ ACHS [facility]; Protocol Last Admin: 11/10/17 06:34 Dose: 2 units Metoprolol Tartrate (Lopressor -) 25 mg PO BID [facility] Last Admin: 11/09/17 21:24 Dose: 25 mg Mupirocin (Bactroban Ointment (For Decolonization) -) 1 applic NS BID [facility] Stop: 11/10/17 21:59 Last Admin: 11/09/17 21:26 Dose: Not Given Oxycodone HCl (Roxicodone -) 5 mg PO Q4H PRN PRN Reason: PAIN LEVEL 4 - 6 Last Admin: 11/09/17 15:26 Dose: 5 mg Oxycodone HCl (Roxicodone -) 10 mg PO Q4H PRN PRN Reason: PAIN LEVEL 7 - 10 Pantoprazole Sodium (Protonix Iv) 40 mg IVPUSH DAILY [facility] Last Admin: 11/09/17 10:19 Dose: 40 mg Potassium Chloride (K-Dur -) 40 meq PO ONCE ONE Stop: 11/10/17 08:47 - Objective Vital Signs: Vital Signs Temperature 98.3 F 11/10/17 06:39 Pulse Rate 71 11/10/17 06:39 Respiratory Rate 20 11/10/17 06:39 Blood Pressure 139/78 11/10/17 06:39 O2 Sat by Pulse Oximetry (%) 95 11/09/17 22:00 Cardiovascular: Yes: Regular Rate and Rhythm Respiratory: Yes: Regular, CTA Bilaterally Gastrointestinal: Yes: Normal Bowel Sounds, Soft Labs: CBC, BMP 11/10/17 06:00 11/10/17 06:00 INR, PTT INR 3.86 (0.83-1.09) H 11/09/17 05:30 Problem List - Problems (1) Adrenal mass Assessment/Plan: -Endo consult hydrocortisone 100mg tid andrenal lesion seen on CT scan Code(s): E27.9 - DISORDER OF ADRENAL GLAND, UNSPECIFIED (2) Sepsis Assessment/Plan: -Septic Shock 2/2 complicated UTI UA positive for bacteria, yeast, WBCs and 3+ LE ABX per ID f/u Urine Cx. and BCx. ID consult appreciated Microbiology 11/05/17 08:55 Urine Culture - Final Urine - Urine - Catheterized Pseudomonas Aeruginosa 11/05/17 08:55 Blood Culture - Preliminary Blood - Peripheral Venous NO GROWTH OBTAINED AFTER 48 HOURS, INCUBATION TO CONTINUE FOR 3 DAYS. 11/05/17 08:55 Blood Culture - Preliminary Blood - Peripheral Venous NO GROWTH OBTAINED AFTER 48 HOURS, INCUBATION TO CONTINUE FOR 3 DAYS. Code(s): A41.9 - SEPSIS, UNSPECIFIED ORGANISM Qualifiers: Sepsis type: sepsis due to unspecified organism Qualified Code(s): A41.9 - Sepsis, unspecified organism (3) Atrial fibrillation Assessment/Plan: Hold warfarin as INR is supra therapeutic to 4.83 Hold Metoprolol as Pt. is hypotensive on Levophed Code(s): I48.91 - UNSPECIFIED ATRIAL FIBRILLATION Qualifiers: Atrial fibrillation type: persistent Qualified Code(s): I48.1 - Persistent atrial fibrillation (4) CAD (coronary artery disease) Assessment/Plan: -Hypotension 2/2 septic shock monitor CVP on Levophed @ 2mcg Hold Spironolactone, Lisinopril and Metoprolol c/w ASA and Plavix Troponin - EKG appreciated: A.Fib w/ RVR, Code(s): I25.10 - ATHSCL HEART DISEASE OF [place] CORONARY ARTERY W/O ANG PCTRS Qualifiers: Coronary Disease-Associated Artery/Lesion type: [place] artery [place] vs. 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 Ruddy Mcguire) Nephrology Consult appreciated (Dr. Baltazar) Code(s): C67.9 - MALIGNANT NEOPLASM OF BLADDER, UNSPECIFIED; C78.7 - SECONDARY MALIG NEOPLASM OF LIVER AND INTRAHEPATIC BILE DUCT (7) Diabetes Code(s): E11.9 - TYPE 2 DIABETES MELLITUS WITHOUT COMPLICATIONS
[2017-11-10] MEDS: MUPIROCIN 2% TOPICAL OINTMENT FOR DECOLONIZATION NS SCH (10:09)
[2017-11-10] MEDS: oxyCODONE HCL 5 MG TABLET PO PRN (10:16)
[2017-11-10] MEDS: FLUDROCORTISONE ACETATE 0.1 MG TABLET (FP) PO SCH (10:18)
[2017-11-10] MEDS: CLOPIDOGREL BISULFATE 75 MG TABLET (FP) PO SCH (10:18)
[2017-11-10] MEDS: PANTOPRAZOLE SODIUM 40 MG VIAL IVPUSH SCH (10:18)
[2017-11-10] MEDS: ASPIRIN COATED 81 MG TABLET.EC PO SCH (10:18)
[2017-11-10] MEDS: METOPROLOL TARTRATE 25 MG TABLET (FP) PO SCH ×2 (10:18→21:52)
--- NOTE | 2017-11-10 11:18 | PN ---
Progress Note (short form) - Note Progress Note: Resting in NAD. No CP or SOB. Afebrile. No acute events overnight. Intake & Output 11/07/17 11/08/17 11/09/17 11/10/17 23:59 23:59 23:59 23:59 Intake Total 1535 980 170 250 Output Total 1700 2100 1600 1100 Balance -165 -1120 -1430 -850 Weight 188 lb 2 oz 189 lb 9 oz 189 lb 3 oz 187 lb 7 oz Last Vital Signs Temp Pulse Resp BP Pulse Ox 98.3 F 71 20 139/78 95 11/10/17 06:39 11/10/17 06:39 11/10/17 06:39 11/10/17 06:39 11/09/17 22:00 Active Medications Aspirin (Ecotrin -) 81 mg PO DAILY [facility] Last Admin: 11/10/17 10:18 Dose: 81 mg Chlorhexidine Gluconate (Hibiclens For Decolonization -) 1 applic TP HS [facility] Last Admin: 11/09/17 22:13 Dose: 1 applic Clopidogrel Bisulfate (Plavix -) 75 mg PO DAILY [facility] Last Admin: 11/10/17 10:18 Dose: 75 mg Fludrocortisone Acetate (Florinef -) 0.05 mg PO DAILY [facility] Last Admin: 11/10/17 10:18 Dose: 0.05 mg Hydrocortisone Sodium Succinate (Solu-Cortef -) 50 mg IVPB BID [facility] Last Admin: 11/10/17 10:18 Dose: 50 mg Piperacillin Sod/Tazobactam (Sod 3.375 gm/ Dextrose) 50 mls @ 100 mls/hr IVPB Q8H-IV [facility]; Protocol Last Admin: 11/10/17 10:19 Dose: 100 mls/hr Insulin Aspart (Novolog Vial Sliding Scale -) 1 vial SQ ACHS [facility]; Protocol Last Admin: 11/10/17 06:34 Dose: 2 units Metoprolol Tartrate (Lopressor -) 25 mg PO BID [facility] Last Admin: 11/10/17 10:18 Dose: 25 mg Mupirocin (Bactroban Ointment (For Decolonization) -) 1 applic NS BID [facility] Stop: 11/10/17 21:59 Last Admin: 11/10/17 10:09 Dose: Not Given Oxycodone HCl (Roxicodone -) 5 mg PO Q4H PRN PRN Reason: PAIN LEVEL 4 - 6 Last Admin: 11/09/17 15:26 Dose: 5 mg Oxycodone HCl (Roxicodone -) 10 mg PO Q4H PRN PRN Reason: PAIN LEVEL 7 - 10 Last Admin: 11/10/17 10:16 Dose: 10 mg Pantoprazole Sodium (Protonix Iv) 40 mg IVPUSH DAILY [facility] Last Admin: 11/10/17 10:18 Dose: 40 mg Gen: NAD at rest Heart: RRR Lung: decreased breath sounds at the bases Abd: soft, nontender Ext: no edema Laboratory Results - last 24 hr 11/06/17 11/08/17 11/09/17 16:15 23:00 05:30 WBC RBC Hgb Hct MCV MCH MCHC RDW Plt Count MPV Neutrophils % (Manual) 95.7 H Band Neutrophils % 0.0 Lymphocytes % (Manual) 1.1 L D Monocytes % (Manual) 3 L Eosinophils % (Manual) 0.0 Basophils % (Manual) 0.0 Myelocytes % (Man) 0 Promyelocytes % (Man) 0 Blast Cells % (Manual) 0 Nucleated RBC % 0 Metamyelocytes 0 Hypochromia 0 Platelet Estimate Normal Platelet Comment Present Polychromasia 0 Poikilocytosis 1+ Anisocytosis 1+ Microcytosis 1+ Macrocytosis 0 Spherocytes 1+ Acanthocytes (Spur) 1+ Sodium Potassium Chloride Carbon Dioxide Anion Gap BUN Creatinine Creat Clearance w eGFR POC Glucometer [phone] Random Glucose Calcium Phosphorus Magnesium Cortisol PM Sample 37.4 H 11/09/17 11/09/17 11/09/17 05:30 12:02 16:59 WBC RBC Hgb Hct MCV MCH MCHC RDW Plt Count MPV Neutrophils % (Manual) Band Neutrophils % Lymphocytes % (Manual) Monocytes % (Manual) Eosinophils % (Manual) Basophils % (Manual) Myelocytes % (Man) Promyelocytes % (Man) Blast Cells % (Manual) Nucleated RBC % Metamyelocytes Hypochromia Platelet Estimate Platelet Comment Polychromasia Poikilocytosis Anisocytosis Microcytosis Macrocytosis Spherocytes Acanthocytes (Spur) Sodium Potassium Chloride Carbon Dioxide Anion Gap BUN Creatinine Creat Clearance w eGFR POC Glucometer 147.65191 159.60613 133 Random Glucose Calcium Phosphorus Magnesium Cortisol PM Sample 11/09/17 11/10/1718 21:23 06:00 06:00 WBC 15.9 H RBC 4.04 Hgb 10.6 L Hct 33.4 L MCV 82.6 MCH 26.1 MCHC 31.6 L RDW 16.8 H Plt Count 356 MPV 8.9 Neutrophils % (Manual) Band Neutrophils % Lymphocytes % (Manual) Monocytes % (Manual) Eosinophils % (Manual) Basophils % (Manual) Myelocytes % (Man) Promyelocytes % (Man) Blast Cells % (Manual) Nucleated RBC % Metamyelocytes Hypochromia Platelet Estimate Platelet Comment Polychromasia Poikilocytosis Anisocytosis Microcytosis Macrocytosis Spherocytes Acanthocytes (Spur) Sodium 141 Potassium 3.3 L Chloride 112 H Carbon Dioxide 16 L Anion Gap 13 BUN 33 H Creatinine 1.1 Creat Clearance w eGFR > 60 POC Glucometer 218 Random Glucose 161 H Calcium 8.7 Phosphorus 2.7 Magnesium 1.9 Cortisol PM Sample 11/10/17 06:19 WBC RBC Hgb Hct MCV MCH MCHC RDW Plt Count MPV Neutrophils % (Manual) Band Neutrophils % Lymphocytes % (Manual) Monocytes % (Manual) Eosinophils % (Manual) Basophils % (Manual) Myelocytes % (Man) Promyelocytes % (Man) Blast Cells % (Manual) Nucleated RBC % Metamyelocytes Hypochromia Platelet Estimate Platelet Comment Polychromasia Poikilocytosis Anisocytosis Microcytosis Macrocytosis Spherocytes Acanthocytes (Spur) Sodium Potassium Chloride Carbon Dioxide Anion Gap BUN Creatinine Creat Clearance w eGFR POC Glucometer 157 Random Glucose Calcium Phosphorus Magnesium Cortisol PM Sample ASSESSMENT AND PLAN: UTI Septic Shock improved h/o Bladder Ca s/p Cystectomy Acute on Chronic Renal Failure improving Adrenal Insufficiency Atrial Fibrillation HTN DM - ABX per ID - monitor urine output, creatinine - Wean steroids - PO as tolerated - DVT prophylaxis Dr Varma
--- NOTE | 2017-11-10 13:10 | CONSULT ---
Consult Consult Specialty:: PM&R - History of Present Illness Chief Complaint: back pain History of Present Illness: This is a 67 year old man with a medical history of A fib, CHF, CAD, GERD, metastatic bladder cancer (mets to lung, liver, R adrenal) s/p cystectomy and ileal conduit, DM, who presented to the ED 11/05/17 with hypotension due to septic shock. He was admitted to the ICU for management of sepsis, where he was seen by Cards, Endo and Uro. Physiatry is being consulted for further recommendations. - Past Medical History Cardio/Vascular: Yes: AFIB, CAD, HTN, Hyperlipdemia Pulmonary: Yes: Sleep Apnea (rule out) Renal/: Yes: Renal Inusuff, Cancer (bladder) Endocrine: Yes: Diabetes Mellitus - Past Surgical History Past Surgical History: Yes: Stent - Alcohol/Substance Use Hx Alcohol Use: No History of Substance Use: reports: None - Smoking History Smoking history: Never smoked Have you smoked in the past 12 months: No Aproximately how many cigarettes per day: 0 - Social History ADL: Independent History of Recent Travel: Yes ([place]) Home Medications - Allergies Allergies/Adverse Reactions: Allergies Allergy/AdvReac Type Severity Reaction Status Date / Time No Known Allergies Allergy Verified 10/27/17 23:31 - Home Medications Home Medications: Ambulatory Orders Aspirin [Aspirin EC] 81 mg PO DAILY 08/25/17 Citalopram Hydrobromide [Citalopram HBr] 10 mg PO DAILY 08/25/17 Clopidogrel Bisulfate [Plavix] 75 mg PO DAILY 08/25/17 Oxycodone HCl/Acetaminophen [Endocet 5-325 Tablet] 1 each PO Q6H PRN 08/25/17 Pantoprazole Sodium [Protonix] 40 mg PO DAILY 08/25/17 Acetaminophen [Tylenol .Regular Strength -] 650 mg PO Q6H PRN #120 tablet MDD 6 09/03/17 Docusate Sodium [Colace -] 300 mg PO HS #90 capsule 09/03/17 Lisinopril [Prinivil] 2.5 mg PO DAILY #30 tablet 09/03/17 Metoprolol Succinate [Toprol XL -] 50 mg PO DAILY #30 tab.sr.24h 09/03/17 Spironolactone [Aldactone -] 25 mg PO DAILY #30 tablet 09/03/17 Warfarin Sodium [Coumadin] 4 mg PO HS #20 tablet MDD 1 11/03/17 Review of Systems Findings/Remarks: denies fevers, CP, SOB, abdominal pain, constipation, muscle/ joint pain at rest , and numbness; nursing reported back pain when he tried to stand for PT Physical Exam Vital Signs: Vital Signs Temperature 98.5 F 11/10/17 09:00 Pulse Rate 80 11/10/17 09:00 Respiratory Rate 19 11/10/17 09:00 Blood Pressure 156/85 11/10/17 09:00 O2 Sat by Pulse Oximetry (%) 95 11/10/17 09:00 Extremities: Yes: Other (General: calm elderly HM sitting in bed NAD N/M: full BUE ROM, 4+/5 BUE/ BLE except for 2/5 B HF; Pinprick decreased entire body including face but consistent Extremities: 1+ BLE pitting edema, no B calf tenderness, +SCDs in place) Labs: CBC, BMP 11/10/17 06:00 11/10/17 06:00 Assessment/Plan Impression: 1) Deficits mobility/ ADLs 2) Deconditioning 3) Gait abnormality 4) Septic shock 5) Pseudomoas aeruginosa UTI 6) HEYDI on CKD 7) hx A fib, CHF, CAD 8) hx GERD 9) Metastatic bladder cancer (mets to lung, liver, R adrenal) s/p cystectomy and ileal conduit 10) hx DM 11) Obesity 12) Up to date flu shot/ pneumovax 13) Anemia Recommendations: 1) PT for strengthening and functional mobility 2) Falls, safety precautions 3) Cardiac, diabetic precautions 4) Heat to low back prn 5) Monitor CBC given anemia 6) Monitor BMP given renal function 7) Nutrition consult for obesity 8) DVT ppx: INR supratherapeutic 9) Skin protection: float heels, frequent turning 10) Discharge planning: depending on his progress in therapy and pain control, he may need inpatient rehabilitation versus being able to return home with services; based on current assessment [facility] is more likely Thank you for this referral.
--- NOTE | 2017-11-10 14:00 | PN ---
Progress Note, Physician Chief Complaint: feeling better denies nausea or vomiting or dizzyness History of Present Illness: 67 YOM with h/o bladder CA with mets to lung, liver, and bone (delphine. vertebrae), s/p ileal conduit, A-fib (on warfarin, Plavix, and baby ASA), CHF, CAD, HTN, GERD, found to have adrenal mass likely metastatic, since admission adrenal support improving clinically,no longer feeling dizzy,or difficulty breathing - Current Medication List Current Medications: Active Medications Aspirin (Ecotrin -) 81 mg PO DAILY [facility] Last Admin: 11/10/17 10:18 Dose: 81 mg Chlorhexidine Gluconate (Hibiclens For Decolonization -) 1 applic TP HS [facility] Last Admin: 11/09/17 22:13 Dose: 1 applic Clopidogrel Bisulfate (Plavix -) 75 mg PO DAILY [facility] Last Admin: 11/10/17 10:18 Dose: 75 mg Fludrocortisone Acetate (Florinef -) 0.05 mg PO DAILY [facility] Last Admin: 11/10/17 10:18 Dose: 0.05 mg Hydrocortisone Sodium Succinate (Solu-Cortef -) 50 mg IVPB BID [facility] Last Admin: 11/10/17 10:18 Dose: 50 mg Piperacillin Sod/Tazobactam (Sod 3.375 gm/ Dextrose) 50 mls @ 100 mls/hr IVPB Q8H-IV [facility]; Protocol Last Admin: 11/10/17 10:19 Dose: 100 mls/hr Insulin Aspart (Novolog Vial Sliding Scale -) 1 vial SQ ACHS [facility]; Protocol Last Admin: 11/10/17 11:38 Dose: 2 units Metoprolol Tartrate (Lopressor -) 25 mg PO BID [facility] Last Admin: 11/10/17 10:18 Dose: 25 mg Mupirocin (Bactroban Ointment (For Decolonization) -) 1 applic NS BID [facility] Stop: 11/10/17 21:59 Last Admin: 11/10/17 10:09 Dose: Not Given Oxycodone HCl (Roxicodone -) 5 mg PO Q4H PRN PRN Reason: PAIN LEVEL 4 - 6 Last Admin: 11/09/17 15:26 Dose: 5 mg Oxycodone HCl (Roxicodone -) 10 mg PO Q4H PRN PRN Reason: PAIN LEVEL 7 - 10 Last Admin: 11/10/17 10:16 Dose: 10 mg Pantoprazole Sodium (Protonix Iv) 40 mg IVPUSH DAILY [facility] Last Admin: 11/10/17 10:18 Dose: 40 mg - Objective Vital Signs: Vital Signs Temperature 98.5 F 11/10/17 09:00 Pulse Rate 80 11/10/17 09:00 Respiratory Rate 19 11/10/17 09:00 Blood Pressure 156/85 11/10/17 09:00 O2 Sat by Pulse Oximetry (%) 95 11/10/17 09:00 Constitutional: Yes: Well Nourished Eyes: Yes: EOM Intact HENT: Yes: Normocephalic Neck: Yes: Trachea Midline Cardiovascular: Yes: Regular Rate and Rhythm Respiratory: Yes: SOB Gastrointestinal: Yes: Normal Bowel Sounds ...Rectal Exam: Yes: Deferred Genitourinary: Yes: WNL Musculoskeletal: Yes: Back Pain, Muscle Weakness Extremities: Yes: WNL Edema: Yes Edema: LLE: 1+, RLE: 1+ Neurological: Yes: Alert, Oriented Labs: CBC, BMP 11/10/17 06:00 11/10/17 06:00 INR, PTT INR 3.86 (0.83-1.09) H 11/09/17 05:30 Problem List - Problems (1) HEYDI (acute kidney injury) Code(s): N17.9 - ACUTE KIDNEY FAILURE, UNSPECIFIED (2) Adrenal mass Code(s): E27.9 - DISORDER OF ADRENAL GLAND, UNSPECIFIED (3) Hydronephrosis Code(s): N13.30 - UNSPECIFIED HYDRONEPHROSIS (4) Sepsis Code(s): A41.9 - SEPSIS, UNSPECIFIED ORGANISM Qualifiers: Sepsis type: sepsis due to unspecified organism Qualified Code(s): A41.9 - Sepsis, unspecified organism (5) Supratherapeutic INR Code(s): R79.1 - ABNORMAL COAGULATION PROFILE (6) Anemia Code(s): D64.9 - ANEMIA, UNSPECIFIED (7) Anxiety Code(s): F41.9 - ANXIETY DISORDER, UNSPECIFIED Assessment/Plan Current Active Problems HEYDI (acute kidney injury) (Acute) Adrenal mass (Acute) Hydronephrosis (Acute) Sepsis (Acute) Supratherapeutic INR (Acute) UTI (urinary tract infection) (Acute) Abnormal Lab Results 11/06/17 11/10/17 11/10/17 16:15 06:00 06:00 WBC 15.9 H Hgb 10.6 L Hct 33.4 L MCHC 31.6 L RDW 16.8 H Potassium 3.3 L Chloride 112 H Carbon Dioxide 16 L BUN 33 H Random Glucose 161 H Cortisol PM Sample 37.4 H Laboratory Tests 11/06/17 11/07/17 11/10/17 16:15 05:30 06:00 Sodium 141 Potassium 3.3 L Chloride 112 H Carbon Dioxide 16 L Anion Gap 13 BUN 33 H Creatinine 1.1 Creat Clearance w eGFR > 60 POC Glucometer Random Glucose 161 H Cortisol AM Sample 37.9 Cortisol PM Sample 37.4 H 11/10/17 06:19 Sodium Potassium Chloride Carbon Dioxide Anion Gap BUN Creatinine Creat Clearance w eGFR POC Glucometer 157 Random Glucose Cortisol AM Sample Cortisol PM Sample plan:given normal cortisol on admission taper steroid dose to lowest possible tolerated [place] young
--- NOTE | 2017-11-10 15:44 | PN ---
Progress Note (short form) - Note Progress Note: awake and alert NAD Vital Signs Period Temp Pulse Resp BP Sys/Maynard Pulse Ox Last 24 Hr 98.3 F-98.6 F 67-80 16-20 130-156/64-85 95-95 cor-rrr lungs clear abd soft,nt+urostomy ext no edema CBC, BMP 11/10/17 06:00 11/10/17 06:00 Microbiology 11/05/17 08:55 Blood - Peripheral Venous Blood Culture - Final NO GROWTH AFTER 5 DAYS INCUBATION 11/05/17 08:55 Blood - Peripheral Venous Blood Culture - Final NO GROWTH AFTER 5 DAYS INCUBATION 11/05/17 08:55 Urine - Urine - Catheterized Urine Culture - Final Pseudomonas Aeruginosa Current Medications Aspirin (Ecotrin -) 81 mg PO DAILY [facility] Last Admin: 11/10/17 10:18 Dose: 81 mg Chlorhexidine Gluconate (Hibiclens For Decolonization -) 1 applic TP HS [facility] Last Admin: 11/09/17 22:13 Dose: 1 applic Clopidogrel Bisulfate (Plavix -) 75 mg PO DAILY [facility] Last Admin: 11/10/17 10:18 Dose: 75 mg Hydrocortisone Sodium Succinate (Solu-Cortef -) 50 mg IVPB BID [facility] Last Admin: 11/10/17 10:18 Dose: 50 mg Piperacillin Sod/Tazobactam (Sod 3.375 gm/ Dextrose) 50 mls @ 100 mls/hr IVPB Q8H-IV [facility]; Protocol Last Admin: 11/10/17 10:19 Dose: 100 mls/hr Insulin Aspart (Novolog Vial Sliding Scale -) 1 vial SQ ACHS [facility]; Protocol Last Admin: 11/10/17 11:38 Dose: 2 units Metoprolol Tartrate (Lopressor -) 25 mg PO BID [facility] Last Admin: 11/10/17 10:18 Dose: 25 mg Mupirocin (Bactroban Ointment (For Decolonization) -) 1 applic NS BID [facility] Stop: 11/10/17 21:59 Last Admin: 11/10/17 10:09 Dose: Not Given Oxycodone HCl (Roxicodone -) 5 mg PO Q4H PRN PRN Reason: PAIN LEVEL 4 - 6 Last Admin: 11/09/17 15:26 Dose: 5 mg Oxycodone HCl (Roxicodone -) 10 mg PO Q4H PRN PRN Reason: PAIN LEVEL 7 - 10 Last Admin: 11/10/17 10:16 Dose: 10 mg Pantoprazole Sodium (Protonix Iv) 40 mg IVPUSH DAILY ANGELITA Last Admin: 11/10/17 10:18 Dose: 40 mg a/p sepsis- pseudomonas uti day #5 zosyn hydronephrosis- ?stricture- urology followup- suspect symptoms will recur if stricture is not fixed suspected adrenal insufficiency due to adrenal mass (new)-on steroids metastatic bladder cancer CAD- s/p stent leukocytosis most likely infection and steroids Problem List - Problems (1) Sepsis Code(s): A41.9 - SEPSIS, UNSPECIFIED ORGANISM Qualifiers: Sepsis type: sepsis due to unspecified organism Qualified Code(s): A41.9 - Sepsis, unspecified organism (2) Hydronephrosis Code(s): N13.30 - UNSPECIFIED HYDRONEPHROSIS (3) UTI (urinary tract infection) Code(s): N39.0 - URINARY TRACT INFECTION, SITE NOT SPECIFIED Qualifiers: Urinary tract infection type: acute cystitis Hematuria presence: with hematuria Qualified Code(s): N30.01 - Acute cystitis with hematuria (4) Supratherapeutic INR Code(s): R79.1 - ABNORMAL COAGULATION PROFILE (5) 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
--- NOTE | 2017-11-10 17:45 | PN ---
Progress Note, Physician History of Present Illness: Pt seen and examined at bedside. He is awake and appears comfortable. He denies shortness of breath. - Current Medication List Current Medications: Active Medications Aspirin (Ecotrin -) 81 mg PO DAILY [facility] Last Admin: 11/10/17 10:18 Dose: 81 mg Chlorhexidine Gluconate (Hibiclens For Decolonization -) 1 applic TP HS [facility] Last Admin: 11/09/17 22:13 Dose: 1 applic Clopidogrel Bisulfate (Plavix -) 75 mg PO DAILY [facility] Last Admin: 11/10/17 10:18 Dose: 75 mg Hydrocortisone Sodium Succinate (Solu-Cortef -) 50 mg IVPB BID [facility] Last Admin: 11/10/17 10:18 Dose: 50 mg Piperacillin Sod/Tazobactam (Sod 3.375 gm/ Dextrose) 50 mls @ 100 mls/hr IVPB Q8H-IV [facility]; Protocol Last Admin: 11/10/17 17:39 Dose: 100 mls/hr Insulin Aspart (Novolog Vial Sliding Scale -) 1 vial SQ ACHS [facility]; Protocol Last Admin: 11/10/17 17:05 Dose: Not Given Metoprolol Tartrate (Lopressor -) 25 mg PO BID [facility] Last Admin: 11/10/17 10:18 Dose: 25 mg Mupirocin (Bactroban Ointment (For Decolonization) -) 1 applic NS BID [facility] Stop: 11/10/17 21:59 Last Admin: 11/10/17 10:09 Dose: Not Given Oxycodone HCl (Roxicodone -) 5 mg PO Q4H PRN PRN Reason: PAIN LEVEL 4 - 6 Last Admin: 11/09/17 15:26 Dose: 5 mg Oxycodone HCl (Roxicodone -) 10 mg PO Q4H PRN PRN Reason: PAIN LEVEL 7 - 10 Last Admin: 11/10/17 10:16 Dose: 10 mg Pantoprazole Sodium (Protonix Iv) 40 mg IVPUSH DAILY [facility] Last Admin: 11/10/17 10:18 Dose: 40 mg - Objective Vital Signs: Vital Signs Temperature 98.5 F 11/10/17 14:34 Pulse Rate 72 11/10/17 14:34 Respiratory Rate 19 11/10/17 09:00 Blood Pressure 130/74 11/10/17 14:34 O2 Sat by Pulse Oximetry (%) 95 11/10/17 09:00 Constitutional: Yes: Calm Eyes: Yes: Conjunctiva Clear HENT: Yes: Atraumatic Neck: Yes: Supple Cardiovascular: Yes: S1, S2 Respiratory: Yes: CTA Bilaterally Gastrointestinal: Yes: Soft Genitourinary: Yes: Other (ileal conduit) Musculoskeletal: Yes: WNL Edema: No Neurological: Yes: Oriented Labs: CBC, BMP 11/10/17 06:00 11/10/17 06:00 INR, PTT INR 3.86 (0.83-1.09) H 11/09/17 05:30 Assessment/Plan Current Medications Generic Name Dose Route Start Last Admin Trade Name Freq PRN Reason Stop Dose Admin Aspirin 81 mg 11/09/17 10:00 11/10/17 10:18 Ecotrin - PO 81 mg DAILY ANGELITA Administration Chlorhexidine Gluconate 1 applic 11/09/17 22:00 11/09/17 22:13 Hibiclens For Decolonization - TP 1 applic HS ANGELITA Administration Clopidogrel Bisulfate 75 mg 11/09/17 10:00 11/10/17 10:18 Plavix - PO 75 mg DAILY ANGELITA Administration Hydrocortisone Sodium Succinate 50 mg 11/10/17 10:00 11/10/17 10:18 Solu-Cortef - IVPB 50 mg BID ANGELITA Administration Piperacillin Sod/Tazobactam 50 mls @ 100 mls/hr 11/09/17 10:00 11/10/17 17:39 Sod 3.375 gm/ Dextrose IVPB 100 mls/hr Q8H-IV ANGELITA Administration Protocol Insulin Aspart 1 vial 11/09/17 07:00 11/10/17 17:05 Novolog Vial Sliding Scale - SQ Not Given ACHS [facility] Protocol Metoprolol Tartrate 25 mg 11/08/17 22:00 11/10/17 10:18 Lopressor - PO 25 mg BID ANGELITA Administration Mupirocin 1 applic 11/09/17 10:00 11/10/17 10:09 Bactroban Ointment (For Decolonization) - NS 11/10/17 21:59 Not Given BID ANGELITA Oxycodone HCl 5 mg 11/09/17 06:58 11/09/17 15:26 Roxicodone - PO 5 mg Q4H PRN Administration PAIN LEVEL 4 - 6 Oxycodone HCl 10 mg 11/09/17 06:58 11/10/17 10:16 Roxicodone - PO 10 mg Q4H PRN Administration PAIN LEVEL 7 - 10 Pantoprazole Sodium 40 mg 11/09/17 10:00 11/10/17 10:18 Protonix Iv IVPUSH 40 mg DAILY ANGELITA Administration Impression 1. CKD 2. altered mental status 3. a-fib 4. DM 5. HTN 6. hx bladder cancer 7. leukocytosis 8. sepsis 9. hyperkalemia 10. chon Plan - replace potassium - urology eval - taper steroids and monitor bp - endocrine follow up - can restart yaima as tolerated - monitor bp Dr Baltazar
[2017-11-10] MEDS ORDERED: INSULIN (NOVOLOG) ASPART 100 UNITS/ML 10ML VIAL ONE (21:46)
[2017-11-10] MEDS: CHLORHEXIDINE GLUCONATE 4% CLEANSER FOR DECOLONIZATION TP SCH (21:54)
[2017-11-11] MEDS ORDERED: PIPERACILLIN/TAZOBACTAM 3.375 GM VIAL IVPB ONE ×3 (01:00→17:50)
[2017-11-11] MEDS ORDERED: DEXTROSE 5%-WATER - 50 ML IVPB ONE ×3 (01:00→17:50)
[2017-11-11] MEDS: PIPERACILLIN/TAZOB 3.375 GM 3.375 GM in DEXTROSE 5%-WATER - 50 ML IVPB SCH ×3 (01:25→18:03)
[2017-11-11] MEDS: INSULIN SLIDING SCALE (NOVOLOG) 1 VIAL SQ SCH ×4 (07:00→21:39)
--- NOTE | 2017-11-11 08:11 | CONSULT ---
Consult - text type - Consultation Consultation Note: CC: urosepsis with right hydronephrosis s/p ileal conduit with metastatic TCC HPI; Patient continues with leukocytosis on steroids. Patient with normal renal function and is without complaints of renal colic or nausea/vomiting. Patient is comfortable and is currently on Piperacillin. PE VSS; afeb abd-soft, nontender; no CVAT. Ostomy draining clear urine labs and CT scan reviewed interventional radiology consulted imp urosepsis right hydronephrosis metastatic TCC s/p radical cystectomy and ileal conduit plan will order a right percutaneous nephrostomy 25 minutes devoted to patient care
[2017-11-11] MEDS ORDERED: PT OWN MED DRAWER 7, Y5N ONE (09:17)
[2017-11-11] MEDS: PANTOPRAZOLE SODIUM 40 MG VIAL IVPUSH SCH (09:19)
[2017-11-11] MEDS: ASPIRIN COATED 81 MG TABLET.EC PO SCH (09:20)
[2017-11-11] MEDS: HYDROCORTISONE SOD SUCCINATE 100 MG/2 ML VIAL IVPB SCH ×2 (09:20→21:36)
[2017-11-11] MEDS: CLOPIDOGREL BISULFATE 75 MG TABLET (FP) PO SCH (09:20)
[2017-11-11] MEDS: oxyCODONE HCL 5 MG TABLET PO PRN (09:20)
[2017-11-11] MEDS: METOPROLOL TARTRATE 25 MG TABLET (FP) PO SCH ×2 (09:20→21:36)
--- NOTE | 2017-11-11 10:26 | PN ---
Progress Note, Physician Chief Complaint: AWAKE ALERT NAD - Current Medication List Current Medications: Active Medications Aspirin (Ecotrin -) 81 mg PO DAILY [facility] Last Admin: 11/11/17 09:20 Dose: 81 mg Chlorhexidine Gluconate (Hibiclens For Decolonization -) 1 applic TP HS [facility] Last Admin: 11/10/17 21:54 Dose: 1 applic Clopidogrel Bisulfate (Plavix -) 75 mg PO DAILY [facility] Last Admin: 11/11/17 09:20 Dose: 75 mg Hydrocortisone Sodium Succinate (Solu-Cortef -) 50 mg IVPB BID [facility] Last Admin: 11/11/17 09:20 Dose: 50 mg Piperacillin Sod/Tazobactam (Sod 3.375 gm/ Dextrose) 50 mls @ 100 mls/hr IVPB Q8H-IV [facility]; Protocol Last Admin: 11/11/17 09:19 Dose: 100 mls/hr Insulin Aspart (Novolog Vial Sliding Scale -) 1 vial SQ ACHS [facility]; Protocol Last Admin: 11/11/17 07:00 Dose: Not Given Metoprolol Tartrate (Lopressor -) 25 mg PO BID [facility] Last Admin: 11/11/17 09:20 Dose: 25 mg Oxycodone HCl (Roxicodone -) 5 mg PO Q4H PRN PRN Reason: PAIN LEVEL 4 - 6 Last Admin: 11/09/17 15:26 Dose: 5 mg Oxycodone HCl (Roxicodone -) 10 mg PO Q4H PRN PRN Reason: PAIN LEVEL 7 - 10 Last Admin: 11/11/17 09:20 Dose: 10 mg Pantoprazole Sodium (Protonix Iv) 40 mg IVPUSH DAILY [facility] Last Admin: 11/11/17 09:19 Dose: 40 mg - Objective Vital Signs: Vital Signs Temperature 97.7 F 11/11/17 05:28 Pulse Rate 67 11/11/17 05:28 Respiratory Rate 20 11/11/17 05:28 Blood Pressure 136/72 11/11/17 05:28 O2 Sat by Pulse Oximetry (%) 95 11/10/17 22:00 Constitutional: Yes: No Distress Eyes: Yes: WNL HENT: Yes: WNL Neck: Yes: WNL Cardiovascular: Yes: WNL Respiratory: Yes: WNL Gastrointestinal: Yes: WNL Genitourinary: Yes: Other Musculoskeletal: Yes: Muscle Weakness Edema: No Peripheral Pulses WNL: Yes Integumentary: Yes: Rash, Other Wound/Incision: Yes: Dressing Dry and Intact Neurological: Yes: Pre-Existing Deficit ...Motor Strength: LLE, RLE Psychiatric: Yes: Other Labs: CBC, BMP 11/10/17 06:00 11/10/17 06:00 INR, PTT INR 3.86 (0.83-1.09) H 11/09/17 05:30 Problem List - Problems (1) HEYDI (acute kidney injury) Code(s): N17.9 - ACUTE KIDNEY FAILURE, UNSPECIFIED (2) Adrenal mass Code(s): E27.9 - DISORDER OF ADRENAL GLAND, UNSPECIFIED (3) Hydronephrosis Code(s): N13.30 - UNSPECIFIED HYDRONEPHROSIS (4) Sepsis Code(s): A41.9 - SEPSIS, UNSPECIFIED ORGANISM Qualifiers: Sepsis type: sepsis due to unspecified organism Qualified Code(s): A41.9 - Sepsis, unspecified organism (5) Supratherapeutic INR Code(s): R79.1 - ABNORMAL COAGULATION PROFILE (6) UTI (urinary tract infection) Code(s): N39.0 - URINARY TRACT INFECTION, SITE NOT SPECIFIED Qualifiers: Urinary tract infection type: acute cystitis Hematuria presence: with hematuria Qualified Code(s): N30.01 - Acute cystitis with hematuria (7) Anemia Code(s): D64.9 - ANEMIA, UNSPECIFIED (8) Anxiety Code(s): F41.9 - ANXIETY DISORDER, UNSPECIFIED (9) Bladder cancer Code(s): C67.9 - MALIGNANT NEOPLASM OF BLADDER, UNSPECIFIED (10) 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, managed as type 2 Code(s): E10.9 - TYPE 1 DIABETES MELLITUS WITHOUT COMPLICATIONS (14) Hyperlipidemia Code(s): E78.5 - HYPERLIPIDEMIA, UNSPECIFIED Qualifiers: Hyperlipidemia type: pure hypercholesterolemia Qualified Code(s): E78.00 - Pure hypercholesterolemia, unspecified; E78.0 - Pure hypercholesterolemia (15) Hypertension Code(s): I10 - ESSENTIAL (PRIMARY) HYPERTENSION Qualifiers: Hypertension type: essential hypertension Qualified Code(s): I10 - Essential (primary) hypertension (16) Metastasis Code(s): C79.9 - SECONDARY MALIGNANT NEOPLASM OF UNSPECIFIED SITE (17) Poor appetite Code(s): R63.0 - ANOREXIA (18) S/P coronary artery stent placement Code(s): Z95.5 - PRESENCE OF CORONARY ANGIOPLASTY IMPLANT AND GRAFT Assessment/Plan PERCUTANEOUS NEPHROSTOMY TOMORROW STOP PLAVIX/ASA/COUMADIN CHECK LABS IN AM INR 1.59, CHECK AGAIN IIN MORNING CARDIOLOGY F/U PAIN CONTROL OOB TO CHAIR WITH PT /ID FOLLOW UP APPRECIATED
--- NOTE | 2017-11-11 11:08 | PN ---
Progress Note, Physician History of Present Illness: Pt seen and examined at bedside. He is awake and alert. - Current Medication List Current Medications: Active Medications Aspirin (Ecotrin -) 81 mg PO DAILY [facility] Last Admin: 11/11/17 09:20 Dose: 81 mg Chlorhexidine Gluconate (Hibiclens For Decolonization -) 1 applic TP HS [facility] Last Admin: 11/10/17 21:54 Dose: 1 applic Clopidogrel Bisulfate (Plavix -) 75 mg PO DAILY [facility] Last Admin: 11/11/17 09:20 Dose: 75 mg Hydrocortisone Sodium Succinate (Solu-Cortef -) 50 mg IVPB BID [facility] Last Admin: 11/11/17 09:20 Dose: 50 mg Piperacillin Sod/Tazobactam (Sod 3.375 gm/ Dextrose) 50 mls @ 100 mls/hr IVPB Q8H-IV [facility]; Protocol Last Admin: 11/11/17 09:19 Dose: 100 mls/hr Insulin Aspart (Novolog Vial Sliding Scale -) 1 vial SQ ACHS [facility]; Protocol Last Admin: 11/11/17 07:00 Dose: Not Given Metoprolol Tartrate (Lopressor -) 25 mg PO BID [facility] Last Admin: 11/11/17 09:20 Dose: 25 mg Oxycodone HCl (Roxicodone -) 5 mg PO Q4H PRN PRN Reason: PAIN LEVEL 4 - 6 Last Admin: 11/09/17 15:26 Dose: 5 mg Oxycodone HCl (Roxicodone -) 10 mg PO Q4H PRN PRN Reason: PAIN LEVEL 7 - 10 Last Admin: 11/11/17 09:20 Dose: 10 mg Pantoprazole Sodium (Protonix Iv) 40 mg IVPUSH DAILY [facility] Last Admin: 11/11/17 09:19 Dose: 40 mg - Objective Vital Signs: Vital Signs Temperature 97.7 F 11/11/17 05:28 Pulse Rate 67 11/11/17 05:28 Respiratory Rate 20 11/11/17 05:28 Blood Pressure 136/72 11/11/17 05:28 O2 Sat by Pulse Oximetry (%) 95 11/10/17 22:00 Constitutional: Yes: Calm Eyes: Yes: Conjunctiva Clear HENT: Yes: Atraumatic Neck: Yes: Supple Cardiovascular: Yes: S1, S2 Respiratory: Yes: CTA Bilaterally Gastrointestinal: Yes: Normal Bowel Sounds, Soft Genitourinary: Yes: Other (ileal coduit) Musculoskeletal: Yes: WNL Edema: No Neurological: Yes: Oriented Psychiatric: Yes: Oriented Labs: CBC, BMP 11/10/17 06:00 11/10/17 06:00 INR, PTT INR 3.86 (0.83-1.09) H 11/09/17 05:30 Assessment/Plan Current Medications Generic Name Dose Route Start Last Admin Trade Name Freq PRN Reason Stop Dose Admin Aspirin 81 mg 11/09/17 10:00 11/11/17 09:20 Ecotrin - PO 81 mg DAILY ANGELITA Administration Chlorhexidine Gluconate 1 applic 11/09/17 22:00 11/10/17 21:54 Hibiclens For Decolonization - TP 1 applic HS ANGELITA Administration Clopidogrel Bisulfate 75 mg 11/09/17 10:00 11/11/17 09:20 Plavix - PO 75 mg DAILY ANGELITA Administration Hydrocortisone Sodium Succinate 50 mg 11/10/17 10:00 11/11/17 09:20 Solu-Cortef - IVPB 50 mg BID ANGELITA Administration Piperacillin Sod/Tazobactam 50 mls @ 100 mls/hr 11/09/17 10:00 11/11/17 09:19 Sod 3.375 gm/ Dextrose IVPB 100 mls/hr Q8H-IV ANGELITA Administration Protocol Insulin Aspart 1 vial 11/09/17 07:00 11/11/17 07:00 Novolog Vial Sliding Scale - SQ Not Given ACHS [facility] Protocol Metoprolol Tartrate 25 mg 11/08/17 22:00 11/11/17 09:20 Lopressor - PO 25 mg BID ANGELITA Administration Oxycodone HCl 5 mg 11/09/17 06:58 11/09/17 15:26 Roxicodone - PO 5 mg Q4H PRN Administration PAIN LEVEL 4 - 6 Oxycodone HCl 10 mg 11/09/17 06:58 11/11/17 09:20 Roxicodone - PO 10 mg Q4H PRN Administration PAIN LEVEL 7 - 10 Pantoprazole Sodium 40 mg 11/09/17 10:00 11/11/17 09:19 Protonix Iv IVPUSH 40 mg DAILY ANGELITA Administration Impression 1. CKD 2. altered mental status 3. a-fib 4. DM 5. HTN 6. hx bladder cancer 7. leukocytosis 8. sepsis 9. hyperkalemia 10. chon Plan - check bmp - urology input appreciated - monitor vitals - taper steroids - endocrine follow up - will hold off yaima for now - monitor bp Dr Baltazar
--- NOTE | 2017-11-11 11:40 | PN ---
Progress Note, Physician - Current Medication List Current Medications: Active Medications Aspirin (Ecotrin -) 81 mg PO DAILY [facility] Last Admin: 11/11/17 09:20 Dose: 81 mg Chlorhexidine Gluconate (Hibiclens For Decolonization -) 1 applic TP HS [facility] Last Admin: 11/10/17 21:54 Dose: 1 applic Clopidogrel Bisulfate (Plavix -) 75 mg PO DAILY [facility] Last Admin: 11/11/17 09:20 Dose: 75 mg Hydrocortisone Sodium Succinate (Solu-Cortef -) 50 mg IVPB BID [facility] Last Admin: 11/11/17 09:20 Dose: 50 mg Piperacillin Sod/Tazobactam (Sod 3.375 gm/ Dextrose) 50 mls @ 100 mls/hr IVPB Q8H-IV [facility]; Protocol Last Admin: 11/11/17 09:19 Dose: 100 mls/hr Insulin Aspart (Novolog Vial Sliding Scale -) 1 vial SQ ACHS [facility]; Protocol Last Admin: 11/11/17 11:28 Dose: Not Given Metoprolol Tartrate (Lopressor -) 25 mg PO BID [facility] Last Admin: 11/11/17 09:20 Dose: 25 mg Oxycodone HCl (Roxicodone -) 5 mg PO Q4H PRN PRN Reason: PAIN LEVEL 4 - 6 Last Admin: 11/09/17 15:26 Dose: 5 mg Oxycodone HCl (Roxicodone -) 10 mg PO Q4H PRN PRN Reason: PAIN LEVEL 7 - 10 Last Admin: 11/11/17 09:20 Dose: 10 mg Pantoprazole Sodium (Protonix Iv) 40 mg IVPUSH DAILY [facility] Last Admin: 11/11/17 09:19 Dose: 40 mg - Objective Vital Signs: Vital Signs Temperature 97.7 F 11/11/17 05:28 Pulse Rate 67 11/11/17 05:28 Respiratory Rate 20 11/11/17 05:28 Blood Pressure 136/72 11/11/17 05:28 O2 Sat by Pulse Oximetry (%) 95 11/10/17 22:00 Eyes: Yes: WNL, Conjunctiva Clear, EOM Intact HENT: Yes: WNL, Atraumatic, Normocephalic Neck: Yes: WNL, Supple, Trachea Midline Cardiovascular: Yes: WNL, Regular Rate and Rhythm Respiratory: Yes: WNL, Regular, CTA Bilaterally Gastrointestinal: Yes: WNL, Normal Bowel Sounds Genitourinary: Yes: WNL Musculoskeletal: Yes: WNL Extremities: Yes: WNL Edema: No Integumentary: Yes: WNL Neurological: Yes: WNL, Alert, Oriented ...Motor Strength: WNL Psychiatric: Yes: WNL Labs: CBC, BMP 11/10/17 06:00 11/10/17 06:00 INR, PTT INR 3.86 (0.83-1.09) H 11/09/17 05:30 Assessment/Plan - Problems (1) Sepsis Assessment/Plan: [id number]; antibiotics per ID Code(s): A41.9 - SEPSIS, UNSPECIFIED ORGANISM Qualifiers: Sepsis type: sepsis due to unspecified organism Qualified Code(s): A41.9 - Sepsis, unspecified organism (2) Anemia Code(s): D64.9 - ANEMIA, UNSPECIFIED (3) Anxiety Code(s): F41.9 - ANXIETY DISORDER, UNSPECIFIED (4) Atrial fibrillation with rapid ventricular response Assessment/Plan: Pt;s HR again became tachycardia; now with elevated BP. Will restart metoprolol tartrate 25 mg bid; f/u HR and BP. Restart lisinopril and aldactone gradually, as BP and renal/electrolytes allow. 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 transplanted heart: [place] heart Associated angina: without angina Qualified Code(s): I25.10 - Atherosclerotic heart disease of [place] coronary artery without angina pectoris (7) Cardiomyopathy Code(s): I42.9 - CARDIOMYOPATHY, UNSPECIFIED Qualifiers: Cardiomyopathy type: ischemic Qualified Code(s): I25.5 - Ischemic cardiomyopathy (8) Chronic systolic (congestive) heart failure Code(s): I50.22 - CHRONIC SYSTOLIC (CONGESTIVE) HEART FAILURE (9) Hyperlipidemia Code(s): E78.5 - HYPERLIPIDEMIA, UNSPECIFIED Qualifiers: Hyperlipidemia type: pure hypercholesterolemia Qualified Code(s): E78.00 - Pure hypercholesterolemia, unspecified; E78.0 - Pure hypercholesterolemia (10) Hypertension Code(s): I10 - ESSENTIAL (PRIMARY) HYPERTENSION Qualifiers: Hypertension type: essential hypertension Qualified Code(s): I10 - Essential (primary) hypertension (11) S/P coronary artery stent placement Code(s): Z95.5 - PRESENCE OF CORONARY ANGIOPLASTY IMPLANT AND GRAFT (12) Supratherapeutic INR Code(s): R79.1 - ABNORMAL COAGULATION PROFILE
--- NOTE | 2017-11-11 12:26 | PN ---
Progress Note (short form) - Note Progress Note: awake and alert NAD Vital Signs Period Temp Pulse Resp BP Sys/Maynrad Pulse Ox Last 24 Hr 97.7 F-98.5 F 67-80 20-20 130-143/72-80 95 cor-rrr lungs clear abd soft, +urostomy ext no edema CBC, BMP 11/10/17 06:00 11/10/17 06:00 Microbiology 11/05/17 08:55 Blood - Peripheral Venous Blood Culture - Final NO GROWTH AFTER 5 DAYS INCUBATION 11/05/17 08:55 Blood - Peripheral Venous Blood Culture - Final NO GROWTH AFTER 5 DAYS INCUBATION 11/05/17 08:55 Urine - Urine - Catheterized Urine Culture - Final Pseudomonas Aeruginosa a/p sepsis- pseudomonas uti day #6 zosyn hydronephrosis- ?stricture- awaiting urology f/u to see if he needs an intervention prior to discharge adrenal mass (new)-on steroids metastatic bladder cancer CAD- s/p stent leukocytosis most likely infection and steroids d/w renal Problem List - Problems (1) Sepsis Code(s): A41.9 - SEPSIS, UNSPECIFIED ORGANISM Qualifiers: Sepsis type: sepsis due to unspecified organism Qualified Code(s): A41.9 - Sepsis, unspecified organism (2) Hydronephrosis Code(s): N13.30 - UNSPECIFIED HYDRONEPHROSIS (3) UTI (urinary tract infection) Code(s): N39.0 - URINARY TRACT INFECTION, SITE NOT SPECIFIED Qualifiers: Urinary tract infection type: acute cystitis Hematuria presence: with hematuria Qualified Code(s): N30.01 - Acute cystitis with hematuria (4) Supratherapeutic INR Code(s): R79.1 - ABNORMAL COAGULATION PROFILE (5) 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
[2017-11-11 13:19] LABS: ANION GAP 13 MMOL/L (8-16); BLOOD UREA NITROGEN 31 mg/dL (7-18); CALCIUM 8.5 mg/dL (8.5-10.1); CHLORIDE 112 mmol/L (98-107); CO2 17 mmol/L (21-32); CREATININE 1.1 mg/dL (0.55-1.3); GLUCOSE,RANDOM 132 mg/dL (74-106); POTASSIUM 3.2 mmol/L (3.5-5.1); SODIUM 141 mmol/L (136-145)
[2017-11-11] MEDS ORDERED: POTASSIUM CHLORIDE TABS 20 MEQ TABLET.ER (FP) PO ONE (14:15)
[2017-11-11 18:07] LABS: INR 1.59 (0.83-1.09); PROTHROMBIN TIME (PATIENT) 18.8 SEC (9.7-13.0)
[2017-11-11] MEDS: CHLORHEXIDINE GLUCONATE 4% CLEANSER FOR DECOLONIZATION TP SCH (22:00)
[2017-11-12] MEDS ORDERED: DEXTROSE 5%-WATER - 50 ML IVPB ONE ×3 (00:57→18:26)
[2017-11-12] MEDS ORDERED: PIPERACILLIN/TAZOBACTAM 3.375 GM VIAL IVPB ONE ×3 (00:57→18:25)
[2017-11-12] MEDS: PIPERACILLIN/TAZOB 3.375 GM 3.375 GM in DEXTROSE 5%-WATER - 50 ML IVPB SCH ×3 (01:07→18:34)
[2017-11-12] MEDS: INSULIN SLIDING SCALE (NOVOLOG) 1 VIAL SQ SCH ×4 (06:25→21:39)
[2017-11-12] MEDS ORDERED: PT OWN MED DRAWER 7, Y5N ONE (06:55)
[2017-11-12 08:47] LABS: HEMATOCRIT 34.2 % (35.4-49); MCH 26.8 pg (25.7-33.7); MCHC 32.1 g/dl (32.0-35.9); MEAN CELL VOLUME 83.5 fl (80-96); MEAN PLT VOLUME 9.3 fl (7.5-11.1); PLATELET COUNT 386 K/MM3 (134-434); WHITE BLOOD COUNT 18.3 K/mm3 (4.0-10.0)
[2017-11-12 08:48] LABS: ANION GAP 9 MMOL/L (8-16); BLOOD UREA NITROGEN 28 mg/dL (7-18); CALCIUM 8.9 mg/dL (8.5-10.1); CHLORIDE 112 mmol/L (98-107); CO2 21 mmol/L (21-32); CREATININE 1.2 mg/dL (0.55-1.3); GLUCOSE,RANDOM 117 mg/dL (74-106); POTASSIUM 3.1 mmol/L (3.5-5.1); SODIUM 142 mmol/L (136-145)
[2017-11-12] MEDS: HYDROCORTISONE SOD SUCCINATE 100 MG/2 ML VIAL IVPB SCH (09:30)
[2017-11-12] MEDS: PANTOPRAZOLE SODIUM 40 MG VIAL IVPUSH SCH (09:31)
[2017-11-12] MEDS: METOPROLOL TARTRATE 25 MG TABLET (FP) PO SCH ×2 (09:32→21:40)
[2017-11-12 10:04] LABS: INR 1.54 (0.83-1.09); PROTHROMBIN TIME (PATIENT) 18.3 SEC (9.7-13.0)
[2017-11-12] MEDS ORDERED: POTASSIUM CHLORIDE TABS 20 MEQ TABLET.ER (FP) PO ONE (11:00)
--- NOTE | 2017-11-12 12:04 | PN ---
Progress Note (short form) - Note Progress Note: Resting in NAD. No CP or SOB. Afebrile. No acute events overnight. Intake & Output 11/09/17 11/10/17 11/11/17 11/12/17 23:59 23:59 23:59 23:59 Intake Total 170 1250 1050 50 Output Total 1600 1600 2500 400 Balance -1430 -350 -1450 -350 Weight 189 lb 3 oz 187 lb 7 oz 188 lb 2 oz Last Vital Signs Temp Pulse Resp BP Pulse Ox 97.7 F 92 H 20 121/69 95 11/12/17 10:00 11/12/17 10:00 11/12/17 10:00 11/12/17 10:00 11/11/17 21:00 Active Medications Aspirin (Ecotrin -) 81 mg PO DAILY [facility] Last Admin: 11/11/17 09:20 Dose: 81 mg Chlorhexidine Gluconate (Hibiclens For Decolonization -) 1 applic TP HS [facility] Last Admin: 11/11/17 22:00 Dose: Not Given Clopidogrel Bisulfate (Plavix -) 75 mg PO DAILY [facility] Last Admin: 11/11/17 09:20 Dose: 75 mg Hydrocortisone Sodium Succinate (Solu-Cortef -) 50 mg IVPB BID [facility] Last Admin: 11/12/17 09:30 Dose: 50 mg Piperacillin Sod/Tazobactam (Sod 3.375 gm/ Dextrose) 50 mls @ 100 mls/hr IVPB Q8H-IV [facility]; Protocol Last Admin: 11/12/17 09:31 Dose: 100 mls/hr Insulin Aspart (Novolog Vial Sliding Scale -) 1 vial SQ ACHS [facility]; Protocol Last Admin: 11/12/17 11:36 Dose: Not Given Metoprolol Tartrate (Lopressor -) 25 mg PO BID [facility] Last Admin: 11/12/17 09:32 Dose: 25 mg Pantoprazole Sodium (Protonix Iv) 40 mg IVPUSH DAILY [facility] Last Admin: 11/12/17 09:31 Dose: 40 mg Gen: NAD at rest Heart: RRR Lung: decreased breath sounds at the bases Abd: soft, nontender, (+) Urostomy Ext: no edema Laboratory Results - last 24 hr 11/11/17 11/11/17 11/11/17 12:09 17:10 17:15 WBC RBC Hgb Hct MCV MCH MCHC RDW Plt Count MPV PT with INR 18.80 H INR 1.59 H Sodium 141 Potassium 3.2 L Chloride 112 H Carbon Dioxide 17 L Anion Gap 13 BUN 31 H Creatinine 1.1 Creat Clearance w eGFR > 60 POC Glucometer 144 Random Glucose 132 H Calcium 8.5 11/11/17 11/12/17 11/12/17 21:39 06:24 07:15 WBC RBC Hgb Hct MCV MCH MCHC RDW Plt Count MPV PT with INR INR Sodium 142 Potassium 3.1 L Chloride 112 H Carbon Dioxide 21 Anion Gap 9 BUN 28 H Creatinine 1.2 Creat Clearance w eGFR > 60 POC Glucometer 115 113 Random Glucose 117 H Calcium 8.9 11/12/17 11/12/17 11/12/17 08:00 09:22 11:34 WBC 18.3 H RBC 4.10 Hgb 11.0 L Hct 34.2 L MCV 83.5 MCH 26.8 MCHC 32.1 RDW 17.0 H Plt Count 386 MPV 9.3 PT with INR 18.30 H INR 1.54 H Sodium Potassium Chloride Carbon Dioxide Anion Gap BUN Creatinine Creat Clearance w eGFR POC Glucometer 138 Random Glucose Calcium ASSESSMENT AND PLAN: UTI Septic Shock improved h/o Bladder Ca s/p Cystectomy Acute on Chronic Renal Failure improving Adrenal Insufficiency Atrial Fibrillation HTN DM - ABX per ID - monitor urine output, creatinine - Noted Hydrocortisone - PO as tolerated - DVT prophylaxis Dr Varma
--- NOTE | 2017-11-12 13:31 | PN ---
Progress Note, Physician Chief Complaint: patient seen and examined - Current Medication List Current Medications: Active Medications Aspirin (Ecotrin -) 81 mg PO DAILY [facility] Last Admin: 11/11/17 09:20 Dose: 81 mg Chlorhexidine Gluconate (Hibiclens For Decolonization -) 1 applic TP HS [facility] Last Admin: 11/11/17 22:00 Dose: Not Given Clopidogrel Bisulfate (Plavix -) 75 mg PO DAILY [facility] Last Admin: 11/11/17 09:20 Dose: 75 mg Hydrocortisone Sodium Succinate (Solu-Cortef -) 50 mg IVPB BID [facility] Last Admin: 11/12/17 09:30 Dose: 50 mg Piperacillin Sod/Tazobactam (Sod 3.375 gm/ Dextrose) 50 mls @ 100 mls/hr IVPB Q8H-IV [facility]; Protocol Last Admin: 11/12/17 09:31 Dose: 100 mls/hr Insulin Aspart (Novolog Vial Sliding Scale -) 1 vial SQ ACHS [facility]; Protocol Last Admin: 11/12/17 11:36 Dose: Not Given Metoprolol Tartrate (Lopressor -) 25 mg PO BID [facility] Last Admin: 11/12/17 09:32 Dose: 25 mg Pantoprazole Sodium (Protonix Iv) 40 mg IVPUSH DAILY [facility] Last Admin: 11/12/17 09:31 Dose: 40 mg - Objective Vital Signs: Vital Signs Temperature 97.7 F 11/12/17 10:00 Pulse Rate 92 H 11/12/17 10:00 Respiratory Rate 20 11/12/17 10:00 Blood Pressure 121/69 11/12/17 10:00 O2 Sat by Pulse Oximetry (%) 96 11/12/17 09:00 Constitutional: Yes: Calm Neck: Yes: Trachea Midline Cardiovascular: Yes: Regular Rate and Rhythm, S1, S2 Respiratory: Yes: CTA Bilaterally Gastrointestinal: Yes: Normal Bowel Sounds, Soft, Other (urostomy) Extremities: Yes: Other (SCD) Labs: CBC, BMP 11/12/17 08:00 11/12/17 07:15 INR, PTT INR 1.54 (0.83-1.09) H 11/12/17 09:22 Problem List - Problems (1) Adrenal mass Assessment/Plan: endocrine on board steroids hydrocortisone 50mg bid will taper to 50mg daily andrenal lesion seen on CT scan Code(s): E27.9 - DISORDER OF ADRENAL GLAND, UNSPECIFIED (2) Atrial fibrillation Assessment/Plan: metoprolol bid on aspirin Code(s): I48.91 - UNSPECIFIED ATRIAL FIBRILLATION Qualifiers: Atrial fibrillation type: persistent Qualified Code(s): I48.1 - Persistent atrial fibrillation (3) 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 transplanted heart: [place] heart Associated angina: without angina Qualified Code(s): I25.10 - Atherosclerotic heart disease of [place] coronary artery without angina pectoris (5) Sepsis Assessment/Plan: Microbiology 11/05/17 08:55 Urine - Urine - Catheterized Urine Culture - Final Pseudomonas Aeruginosa on zosyn day 7 Code(s): A41.9 - SEPSIS, UNSPECIFIED ORGANISM Qualifiers: Sepsis type: sepsis due to unspecified organism Qualified Code(s): A41.9 - Sepsis, unspecified organism (6) Hypokalemia Assessment/Plan: repleted recheck mag in AM Code(s): E87.6 - HYPOKALEMIA
--- NOTE | 2017-11-12 15:54 | PN ---
Progress Note, Physician History of Present Illness: Pt seen and examined at bedside. He is awake and alert. He denies shortness of breath. - Current Medication List Current Medications: Active Medications Aspirin (Ecotrin -) [address] [facility] Last Admin: 11/11/17 09:20 Dose: 81 mg Chlorhexidine Gluconate (Hibiclens For Decolonization -) [address] [facility] Last Admin: 11/11/17 22:00 Dose: Not Given Clopidogrel Bisulfate (Plavix -) [address] [facility] Last Admin: 11/11/17 09:20 Dose: 75 mg Hydrocortisone Sodium Succinate (Solu-Cortef -) [address] [facility] Last Admin: 11/12/17 09:30 Dose: 50 mg Piperacillin Sod/Tazobactam (Sod 3.375 gm/ Dextrose) 50 mls @ 100 mls/hr IVPB Q8H-IV [facility]; Protocol Last Admin: 11/12/17 09:31 Dose: 100 mls/hr Insulin Aspart (Novolog Vial Sliding Scale -) [address] [facility]; Protocol Last Admin: 11/12/17 11:36 Dose: Not Given Metoprolol Tartrate (Lopressor -) [address] [facility] Last Admin: 11/12/17 09:32 Dose: 25 mg Pantoprazole Sodium (Protonix Iv) [address] [facility] Last Admin: 11/12/17 09:31 Dose: 40 mg - Objective Vital Signs: Vital Signs Temperature 97.5 F L 11/12/17 14:13 Pulse Rate 95 H 11/12/17 14:13 Respiratory Rate 20 11/12/17 10:00 Blood Pressure 127/66 11/12/17 14:13 O2 Sat by Pulse Oximetry (%) 96 11/12/17 09:00 Constitutional: Yes: Calm Eyes: Yes: Conjunctiva Clear Neck: Yes: Supple Cardiovascular: Yes: S1, S2 Respiratory: Yes: CTA Bilaterally Gastrointestinal: Yes: Soft Genitourinary: Yes: Other (ileal conduit) Musculoskeletal: Yes: WNL Edema: No Neurological: Yes: Oriented Labs: CBC, BMP 11/12/17 08:00 11/12/17 07:15 INR, PTT INR 1.54 (0.83-1.09) H 11/12/17 09:22 Assessment/Plan Current Medications Generic Name Dose Route Start Last Admin Trade Name Freq PRN Reason Stop Dose Admin Aspirin 81 mg 11/09/17 10:00 11/11/17 09:20 Ecotrin - PO 81 mg DAILY [facility] Administration Chlorhexidine Gluconate 1 applic 11/09/17 22:00 11/11/17 22:00 Hibiclens For Decolonization - TP Not Given HS [facility] Clopidogrel Bisulfate 75 mg 11/09/17 10:00 11/11/17 09:20 Plavix - PO 75 mg DAILY [facility] Administration Hydrocortisone Sodium Succinate 50 mg 11/10/17 10:00 11/12/17 09:30 Solu-Cortef - IVPB 50 mg BID [facility] Administration Piperacillin Sod/Tazobactam 50 mls @ 100 mls/hr 11/09/17 10:00 11/12/17 09:31 Sod 3.375 gm/ Dextrose IVPB 100 mls/hr Q8H-IV [facility] Administration Protocol Insulin Aspart 1 vial 11/09/17 07:00 11/12/17 11:36 Novolog Vial Sliding Scale - SQ Not Given ACHS [facility] Protocol Metoprolol Tartrate 25 mg 11/08/17 22:00 11/12/17 09:32 Lopressor - PO 25 mg BID [facility] Administration Pantoprazole Sodium 40 mg 11/09/17 10:00 11/12/17 09:31 Protonix Iv IVPUSH 40 mg DAILY [facility] Administration Impression 1. CKD 2. altered mental status 3. a-fib 4. DM 5. HTN 6. hx bladder cancer 7. leukocytosis 8. sepsis 9. hyperkalemia 10. chon Plan - replace potassium - check mag - repeat labs in am - urology followup, plan for nephrostomy - taper steroids - endocrine follow up - will hold off yaima for now as cliff is borderline low - monitor bp Dr Baltazar
--- NOTE | 2017-11-12 17:11 | PN ---
Progress Note (short form) - Note Progress Note: awake and alert NAD c/o left hip pain Vital Signs Period Temp Pulse Resp BP Sys/Maynard Pulse Ox Last 24 Hr 97.5 F-98.5 F 19-111 20-20 108-127/64-69 95-96 cor-rrr lungs decreased bs at bases abd soft,n+urostomy ext no edema CBC, BMP 11/12/17 08:00 11/12/17 07:15 Microbiology 11/05/17 08:55 Blood - Peripheral Venous Blood Culture - Final NO GROWTH AFTER 5 DAYS INCUBATION 11/05/17 08:55 Blood - Peripheral Venous Blood Culture - Final NO GROWTH AFTER 5 DAYS INCUBATION 11/05/17 08:55 Urine - Urine - Catheterized Urine Culture - Final Pseudomonas Aeruginosa a/p sepsis- pseudomonas uti day #7 zosyn hydronephrosis- ?stricture- adrenal mass (new)-on steroids metastatic bladder cancer CAD- s/p stent leukocytosis most likely infection and steroids Problem List - Problems (1) Sepsis Code(s): A41.9 - SEPSIS, UNSPECIFIED ORGANISM Qualifiers: Sepsis type: sepsis due to unspecified organism Qualified Code(s): A41.9 - Sepsis, unspecified organism (2) Hydronephrosis Code(s): N13.30 - UNSPECIFIED HYDRONEPHROSIS (3) UTI (urinary tract infection) Code(s): N39.0 - URINARY TRACT INFECTION, SITE NOT SPECIFIED Qualifiers: Urinary tract infection type: acute cystitis Hematuria presence: with hematuria Qualified Code(s): N30.01 - Acute cystitis with hematuria (4) Supratherapeutic INR Code(s): R79.1 - ABNORMAL COAGULATION PROFILE (5) 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
[2017-11-12] MEDS ORDERED: oxyCODONE HCL 5 MG TABLET PO PRN (18:16)
[2017-11-12] MEDS: oxyCODONE HCL 5 MG TABLET PO PRN (18:32)
--- NOTE | 2017-11-12 20:05 | PN ---
Progress Note (short form) - Note Progress Note: weak in bed no complaint Current Active Problems HEYDI (acute kidney injury) (Acute) Adrenal mass (Acute) Hydronephrosis (Acute) Hypokalemia (Acute) Sepsis (Acute) Supratherapeutic INR (Acute) UTI (urinary tract infection) (Acute) Abnormal Lab Results 11/12/17 11/12/17 11/12/17 07:15 08:00 09:22 WBC 18.3 H Hgb 11.0 L Hct 34.2 L RDW 17.0 H PT with INR 18.30 H INR 1.54 H Potassium 3.1 L Chloride 112 H BUN 28 H Random Glucose 117 H bp 110/69 pulse 88bpm r 20 at rest bp lower /hypokalemia suggestive mineral corticoid effect switch to decadron 4mg bid follow cortisol level taper decadron Problem List - Problems (1) HEYDI (acute kidney injury) Code(s): N17.9 - ACUTE KIDNEY FAILURE, UNSPECIFIED (2) Adrenal mass Code(s): E27.9 - DISORDER OF ADRENAL GLAND, UNSPECIFIED (3) Hydronephrosis Code(s): N13.30 - UNSPECIFIED HYDRONEPHROSIS (4) Sepsis Code(s): A41.9 - SEPSIS, UNSPECIFIED ORGANISM Qualifiers: Sepsis type: sepsis due to unspecified organism Qualified Code(s): A41.9 - Sepsis, unspecified organism (5) Supratherapeutic INR Code(s): R79.1 - ABNORMAL COAGULATION PROFILE (6) Anemia Code(s): D64.9 - ANEMIA, UNSPECIFIED (7) Anxiety Code(s): F41.9 - ANXIETY DISORDER, UNSPECIFIED
[2017-11-12] MEDS: DEXAMETHASONE 4 MG TABLET (FP) PO SCH (21:40)
--- NOTE | 2017-11-12 23:50 | PN ---
Progress Note, Physician Chief Complaint: Pt A&Ox3; no chest pain or SOB. 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 As per EMS the patients systolic was noted to be in the 60s and they placed a PIV and started a liter of NS prior to arrival in the emergency department. The patient denies chest pain, shortness of breath, headache and dizziness. Denies fever, chills, nausea, vomit, diarrhea and constipation. Denies dysuria, frequency, urgency and hematuria. - Current Medication List Current Medications: Active Medications Aspirin (Ecotrin -) 81 mg PO DAILY [facility] Last Admin: 11/11/17 09:20 Dose: 81 mg Clopidogrel Bisulfate (Plavix -) 75 mg PO DAILY [facility] Last Admin: 11/11/17 09:20 Dose: 75 mg Dexamethasone (Decadron -) 4 mg PO BID [facility] Last Admin: 11/12/17 21:40 Dose: 4 mg Piperacillin Sod/Tazobactam (Sod 3.375 gm/ Dextrose) 50 mls @ 100 mls/hr IVPB Q8H-IV [facility]; Protocol Last Admin: 11/12/17 18:34 Dose: 100 mls/hr Insulin Aspart (Novolog Vial Sliding Scale -) 1 vial SQ ACHS [facility]; Protocol Last Admin: 11/12/17 21:39 Dose: Not Given Metoprolol Tartrate (Lopressor -) 25 mg PO BID [facility] Last Admin: 11/12/17 21:40 Dose: 25 mg Oxycodone HCl (Roxicodone -) 5 mg PO Q4H PRN PRN Reason: PAIN LEVEL 1-5 Oxycodone HCl (Roxicodone -) 10 mg PO Q4H PRN PRN Reason: PAIN LEVEL 6-10 Last Admin: 11/12/17 18:32 Dose: 10 mg Pantoprazole Sodium (Protonix Iv) 40 mg IVPUSH DAILY [facility] Last Admin: 11/12/17 09:31 Dose: 40 mg - Objective Vital Signs: Vital Signs Temperature 97.5 F L 11/12/17 22:01 Pulse Rate 90 11/12/17 22:01 Respiratory Rate 20 11/12/17 22:01 Blood Pressure 120/55 L 11/12/17 22:01 O2 Sat by Pulse Oximetry (%) 96 11/12/17 09:00 Constitutional: Yes: Calm Eyes: Yes: WNL HENT: Yes: WNL Neck: Yes: WNL Cardiovascular: Yes: S1 (varies in intensity), S2 Respiratory: Yes: Regular Gastrointestinal: Yes: Soft, Abdomen, Obese ...Rectal Exam: Yes: Deferred Genitourinary: No: Anuria Musculoskeletal: Yes: Back Pain, Joint Stiffness, Muscle Weakness Extremities: Yes: Cool Edema: No Peripheral Pulses WNL: Yes Integumentary: Yes: WNL Neurological: Yes: Alert, Oriented, Weakness Psychiatric: Yes: Alert, Oriented Labs: CBC, BMP 11/12/17 08:00 11/12/17 07:15 INR, PTT INR 1.54 (0.83-1.09) H 11/12/17 09:22 Problem List - Problems (1) Sepsis Assessment/Plan: remains leukocytotic. On fluids; off antibiotics. F/u with ID. Code(s): A41.9 - SEPSIS, UNSPECIFIED ORGANISM Qualifiers: Sepsis type: sepsis due to unspecified organism Qualified Code(s): A41.9 - Sepsis, unspecified organism (2) Anemia Code(s): D64.9 - ANEMIA, UNSPECIFIED (3) Anxiety Code(s): F41.9 - ANXIETY DISORDER, UNSPECIFIED (4) Atrial fibrillation with rapid ventricular response Assessment/Plan: Pt;s HR again became tachycardia; now with elevated BP. On metoprolol tartrate 25 mg bid; f/u HR and BP. Restart lisinopril and aldactone gradually, as BP and renal/electrolytes allow. 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 transplanted heart: [place] heart Associated angina: without angina Qualified Code(s): I25.10 - Atherosclerotic heart disease of [place] coronary artery without angina pectoris (7) Cardiomyopathy Code(s): I42.9 - CARDIOMYOPATHY, UNSPECIFIED Qualifiers: Cardiomyopathy type: ischemic Qualified Code(s): I25.5 - Ischemic cardiomyopathy (8) Chronic systolic (congestive) heart failure Assessment/Plan: restart metoprolol, ACEI, aldactone when no longer hypotensive. F/u BUN/Cr, Is and Os, daily weight, electrolytes. Code(s): I50.22 - CHRONIC SYSTOLIC (CONGESTIVE) HEART FAILURE (9) Hyperlipidemia Code(s): E78.5 - HYPERLIPIDEMIA, UNSPECIFIED Qualifiers: Hyperlipidemia type: pure hypercholesterolemia Qualified Code(s): E78.00 - Pure hypercholesterolemia, unspecified; E78.0 - Pure hypercholesterolemia (10) Hypertension Code(s): I10 - ESSENTIAL (PRIMARY) HYPERTENSION Qualifiers: Hypertension type: essential hypertension Qualified Code(s): I10 - Essential (primary) hypertension (11) S/P coronary artery stent placement Code(s): Z95.5 - PRESENCE OF CORONARY ANGIOPLASTY IMPLANT AND GRAFT (12) Supratherapeutic INR Assessment/Plan: hold warfarin until INR < 2. Code(s): R79.1 - ABNORMAL COAGULATION PROFILE
--- NOTE | 2017-11-12 23:58 | PN ---
Progress Note, Physician Chief Complaint: A&O; no chest pain or dyspnea. - Current Medication List Current Medications: Active Medications Aspirin (Ecotrin -) 81 mg PO DAILY [facility] Last Admin: 11/11/17 09:20 Dose: 81 mg Clopidogrel Bisulfate (Plavix -) 75 mg PO DAILY [facility] Last Admin: 11/11/17 09:20 Dose: 75 mg Dexamethasone (Decadron -) 4 mg PO BID [facility] Last Admin: 11/12/17 21:40 Dose: 4 mg Piperacillin Sod/Tazobactam (Sod 3.375 gm/ Dextrose) 50 mls @ 100 mls/hr IVPB Q8H-IV [facility]; Protocol Last Admin: 11/12/17 18:34 Dose: 100 mls/hr Insulin Aspart (Novolog Vial Sliding Scale -) 1 vial SQ ACHS [facility]; Protocol Last Admin: 11/12/17 21:39 Dose: Not Given Losartan Potassium (Cozaar -) 25 mg PO DAILY [facility] Metoprolol Tartrate (Lopressor -) 25 mg PO BID [facility] Last Admin: 11/12/17 21:40 Dose: 25 mg Oxycodone HCl (Roxicodone -) 5 mg PO Q4H PRN PRN Reason: PAIN LEVEL 1-5 Oxycodone HCl (Roxicodone -) 10 mg PO Q4H PRN PRN Reason: PAIN LEVEL 6-10 Last Admin: 11/12/17 18:32 Dose: 10 mg Pantoprazole Sodium (Protonix Iv) 40 mg IVPUSH DAILY [facility] Last Admin: 11/12/17 09:31 Dose: 40 mg - Objective Vital Signs: Vital Signs Temperature 97.5 F L 11/12/17 22:01 Pulse Rate 90 11/12/17 22:01 Respiratory Rate 20 11/12/17 22:01 Blood Pressure 120/55 L 11/12/17 22:01 O2 Sat by Pulse Oximetry (%) 96 11/12/17 09:00 Constitutional: Yes: Calm Eyes: Yes: WNL HENT: Yes: WNL Neck: Yes: WNL Cardiovascular: Yes: S1 (varies in intensity), S2 Respiratory: Yes: Regular Gastrointestinal: Yes: Soft ...Rectal Exam: Yes: Deferred Genitourinary: No: Anuria Musculoskeletal: Yes: Muscle Weakness Extremities: Yes: Cool Edema: No Peripheral Pulses WNL: Yes Integumentary: Yes: WNL Neurological: Yes: Alert, Oriented, Weakness Psychiatric: Yes: Alert, Oriented Labs: CBC, BMP 11/12/17 08:00 11/12/17 07:15 INR, PTT INR 1.54 (0.83-1.09) H 11/12/17 09:22 Abnormal Lab Results 11/12/17 11/12/17 11/12/17 07:15 08:00 09:22 WBC 18.3 H Hgb 11.0 L Hct 34.2 L RDW 17.0 H PT with INR 18.30 H INR 1.54 H Potassium 3.1 L Chloride 112 H BUN 28 H Random Glucose 117 H Problem List - Problems (1) Sepsis Assessment/Plan: remains leukocytotic; likely due to both bacteremia and steroids. On Zosyn--day 7. F/u with ID. Code(s): A41.9 - SEPSIS, UNSPECIFIED ORGANISM Qualifiers: Sepsis type: sepsis due to unspecified organism Qualified Code(s): A41.9 - Sepsis, unspecified organism (2) Anemia Code(s): D64.9 - ANEMIA, UNSPECIFIED (3) Anxiety Code(s): F41.9 - ANXIETY DISORDER, UNSPECIFIED (4) Atrial fibrillation with rapid ventricular response Assessment/Plan: Pt;s HR and BP have been better-controlled. On metoprolol tartrate 25 mg bid; f/u HR and BP. Restart warfarin(INR now < 2); keep INR 2-3. EKG in am. 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 Code(s): C67.9 - MALIGNANT NEOPLASM OF BLADDER, UNSPECIFIED; C78.00 - SECONDARY MALIGNANT NEOPLASM OF UNSPECIFIED LUNG (6) CAD (coronary artery disease) Code(s): I25.10 - ATHSCL HEART DISEASE OF [place] CORONARY ARTERY W/O ANG PCTRS Qualifiers: Coronary Disease-Associated Artery/Lesion type: [place] artery [place] vs. transplanted heart: [place] heart Associated angina: without angina Qualified Code(s): I25.10 - Atherosclerotic heart disease of [place] coronary artery without angina pectoris (7) Cardiomyopathy Assessment/Plan: severely reduced LVEF. On metoprolol. Start losartan 25 mg daily. Code(s): I42.9 - CARDIOMYOPATHY, UNSPECIFIED Qualifiers: Cardiomyopathy type: ischemic Qualified Code(s): I25.5 - Ischemic cardiomyopathy (8) Chronic systolic (congestive) heart failure Assessment/Plan: On metoprolol. Start ARB (losartan 25 mg daily). Add aldactone if BP, renal function, and electrolytes allow. F/u BUN/Cr, Is and Os, daily weight, electrolytes. Code(s): I50.22 - CHRONIC SYSTOLIC (CONGESTIVE) HEART FAILURE (9) Hyperlipidemia Code(s): E78.5 - HYPERLIPIDEMIA, UNSPECIFIED Qualifiers: Hyperlipidemia type: pure hypercholesterolemia Qualified Code(s): E78.00 - Pure hypercholesterolemia, unspecified; E78.0 - Pure hypercholesterolemia (10) Hypertension Code(s): I10 - ESSENTIAL (PRIMARY) HYPERTENSION Qualifiers: Hypertension type: essential hypertension Qualified Code(s): I10 - Essential (primary) hypertension (11) S/P coronary artery stent placement Code(s): Z95.5 - PRESENCE OF CORONARY ANGIOPLASTY IMPLANT AND GRAFT (12) Supratherapeutic INR Assessment/Plan: INR now < 2; restart warfarin, and keep INR 2-3. Code(s): R79.1 - ABNORMAL COAGULATION PROFILE (13) Hypokalemia Assessment/Plan: replete K; f/u all electrolytes. Start ARB (losartan 25 mg daily); besides aid in systolic CHF, may help balance K+. Code(s): E87.6 - HYPOKALEMIA
[2017-11-13] MEDS ORDERED: DEXTROSE 5%-WATER - 50 ML IVPB ONE ×3 (01:47→18:24)
[2017-11-13] MEDS ORDERED: PIPERACILLIN/TAZOBACTAM 3.375 GM VIAL IVPB ONE ×3 (01:47→18:24)
[2017-11-13] MEDS: PIPERACILLIN/TAZOB 3.375 GM 3.375 GM in DEXTROSE 5%-WATER - 50 ML IVPB SCH ×3 (01:55→18:30)
[2017-11-13] MEDS: INSULIN SLIDING SCALE (NOVOLOG) 1 VIAL SQ SCH ×4 (06:30→22:44)
[2017-11-13 08:21] LABS: ALBUMIN 1.9 g/dl (3.4-5.0); ALK PHOS 211 U/L (45-117); ANION GAP 8 MMOL/L (8-16); BILIRUBIN,TOTAL 0.6 mg/dL (0.2-1); BLOOD UREA NITROGEN 26 mg/dL (7-18); CALCIUM 8.5 mg/dL (8.5-10.1); CHLORIDE 107 mmol/L (98-107); CO2 23 mmol/L (21-32); CREATININE 1.2 mg/dL (0.55-1.3); GLUCOSE,RANDOM 133 mg/dL (74-106); MAGNESIUM 1.9 mg/dL (1.8-2.4); POTASSIUM 3.4 mmol/L (3.5-5.1); SGOT/AST 17 U/L (15-37); SGPT/ALT 38 U/L (13-61); SODIUM 138 mmol/L (136-145); TOT PROT 5.6 g/dl (6.4-8.2)
--- NOTE | 2017-11-13 09:14 | EKG ---
Test Reason : Blood Pressure : / mmHG Vent. Rate : 082 BPM Atrial Rate : 082 BPM P-R Int : 142 ms QRS Dur : 090 ms QT Int : 394 ms P-R-T Axes : 058 032 -68 degrees QTc Int : 460 ms SINUS RHYTHM WITH PREMATURE ATRIAL COMPLEXES NONSPECIFIC ST AND T WAVE ABNORMALITY ABNORMAL ECG WHEN COMPARED WITH ECG OF 08-NOV-2017 17:35, PREMATURE ATRIAL COMPLEXES ARE NOW PRESENT NONSPECIFIC T WAVE ABNORMALITY NOW EVIDENT IN ANTEROLATERAL LEADS Confirmed by WEST ALDRIDGE MD ([id number]) on 11/13/2017 9:14:21 AM Referred By: Confirmed By:WEST ALDRIDGE MD
[2017-11-13] MEDS ORDERED: POTASSIUM CHLORIDE TABS 20 MEQ TABLET.ER (FP) PO ONE (09:29)
--- NOTE | 2017-11-13 10:13 | PN ---
Progress Note, Physician - Current Medication List Current Medications: Active Medications Aspirin (Ecotrin -) 81 mg PO DAILY [facility] Last Admin: 11/11/17 09:20 Dose: 81 mg Clopidogrel Bisulfate (Plavix -) 75 mg PO DAILY [facility] Last Admin: 11/11/17 09:20 Dose: 75 mg Dexamethasone (Decadron -) 4 mg PO BID [facility] Last Admin: 11/12/17 21:40 Dose: 4 mg Piperacillin Sod/Tazobactam (Sod 3.375 gm/ Dextrose) 50 mls @ 100 mls/hr IVPB Q8H-IV [facility]; Protocol Last Admin: 11/13/17 01:55 Dose: 100 mls/hr Insulin Aspart (Novolog Vial Sliding Scale -) 1 vial SQ ACHS [facility]; Protocol Last Admin: 11/13/17 06:30 Dose: 2 units Losartan Potassium (Cozaar -) 25 mg PO DAILY [facility] Metoprolol Tartrate (Lopressor -) 25 mg PO BID [facility] Last Admin: 11/12/17 21:40 Dose: 25 mg Oxycodone HCl (Roxicodone -) 5 mg PO Q4H PRN PRN Reason: PAIN LEVEL 1-5 Oxycodone HCl (Roxicodone -) 10 mg PO Q4H PRN PRN Reason: PAIN LEVEL 6-10 Last Admin: 11/12/17 18:32 Dose: 10 mg Pantoprazole Sodium (Protonix Iv) 40 mg IVPUSH DAILY [facility] Last Admin: 11/12/17 09:31 Dose: 40 mg - Objective Vital Signs: Vital Signs Temperature 98.4 F 11/13/17 06:59 Pulse Rate 80 11/13/17 06:59 Respiratory Rate 20 11/13/17 06:59 Blood Pressure 108/63 11/13/17 06:59 O2 Sat by Pulse Oximetry (%) 96 11/12/17 21:00 Eyes: Yes: WNL, Conjunctiva Clear, EOM Intact HENT: Yes: WNL, Atraumatic, Normocephalic Neck: Yes: WNL, Supple, Trachea Midline Cardiovascular: Yes: WNL, Regular Rate and Rhythm Respiratory: Yes: WNL, Regular, CTA Bilaterally Gastrointestinal: Yes: WNL, Normal Bowel Sounds Genitourinary: Yes: WNL Musculoskeletal: Yes: WNL Extremities: Yes: WNL Edema: No Integumentary: Yes: WNL Neurological: Yes: WNL, Alert, Oriented ...Motor Strength: WNL Psychiatric: Yes: WNL Labs: CBC, BMP 11/12/17 08:00 11/13/17 07:20 INR, PTT INR 1.54 (0.83-1.09) H 11/12/17 09:22 Assessment/Plan - Problems (1) Sepsis Assessment/Plan: remains leukocytotic; likely due to both bacteremia and steroids. On Zosyn--day 7. F/u with ID. Code(s): A41.9 - SEPSIS, UNSPECIFIED ORGANISM Qualifiers: Sepsis type: sepsis due to unspecified organism Qualified Code(s): A41.9 - Sepsis, unspecified organism (2) Anemia Code(s): D64.9 - ANEMIA, UNSPECIFIED (3) Anxiety Code(s): F41.9 - ANXIETY DISORDER, UNSPECIFIED (4) Atrial fibrillation with rapid ventricular response Assessment/Plan: Pt;s HR and BP have been better-controlled. On metoprolol tartrate 25 mg bid; f/u HR and BP. Restart warfarin(INR now < 2); keep INR 2-3. EKG in am. 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 Code(s): C67.9 - MALIGNANT NEOPLASM OF BLADDER, UNSPECIFIED; C78.00 - SECONDARY MALIGNANT NEOPLASM OF UNSPECIFIED LUNG (6) CAD (coronary artery disease) Code(s): I25.10 - ATHSCL HEART DISEASE OF [place] CORONARY ARTERY W/O ANG PCTRS s/p LIDIA mRCA June 2017. DAPT stopped (without our knowledge) prior to nephrostomy tube Restart DAPT as soon as possible after procedure. Patient is cleared for the procedure Qualifiers: Coronary Disease-Associated Artery/Lesion type: [place] artery [place] vs. transplanted heart: [place] heart Associated angina: without angina Qualified Code(s): I25.10 - Atherosclerotic heart disease of [place] coronary artery without angina pectoris (7) Cardiomyopathy Assessment/Plan: severely reduced LVEF. On metoprolol. Start losartan 25 mg daily. will d/w prognosis if life expectancy is not longer than the 6 months no ICD is indicated. Code(s): I42.9 - CARDIOMYOPATHY, UNSPECIFIED Qualifiers: Cardiomyopathy type: ischemic Qualified Code(s): I25.5 - Ischemic cardiomyopathy (8) Chronic systolic (congestive) heart failure Assessment/Plan: On metoprolol. Start ARB (losartan 25 mg daily). Add aldactone if BP, renal function, and electrolytes allow. F/u BUN/Cr, Is and Os, daily weight, electrolytes. Code(s): I50.22 - CHRONIC SYSTOLIC (CONGESTIVE) HEART FAILURE (9) Hyperlipidemia Code(s): E78.5 - HYPERLIPIDEMIA, UNSPECIFIED Qualifiers: Hyperlipidemia type: pure hypercholesterolemia Qualified Code(s): E78.00 - Pure hypercholesterolemia, unspecified; E78.0 - Pure hypercholesterolemia (10) Hypertension Code(s): I10 - ESSENTIAL (PRIMARY) HYPERTENSION Qualifiers: Hypertension type: essential hypertension Qualified Code(s): I10 - Essential (primary) hypertension (11) S/P coronary artery stent placement Code(s): Z95.5 - PRESENCE OF CORONARY ANGIOPLASTY IMPLANT AND GRAFT (12) Supratherapeutic INR Assessment/Plan: INR now < 2; restart warfarin, and keep INR 2-3. Code(s): R79.1 - ABNORMAL COAGULATION PROFILE (13) Hypokalemia Assessment/Plan: replete K; f/u all electrolytes. Start ARB (losartan 25 mg daily); besides aid in systolic CHF, may help balance K+. Code(s): E87.6 - HYPOKALEMIA
[2017-11-13] MEDS: PANTOPRAZOLE SODIUM 40 MG VIAL IVPUSH SCH (10:33)
[2017-11-13] MEDS: DEXAMETHASONE 4 MG TABLET (FP) PO SCH ×2 (10:34→22:44)
[2017-11-13] MEDS: LOSARTAN POTASSIUM 25 MG TABLET PO SCH (10:34)
[2017-11-13] MEDS: METOPROLOL TARTRATE 25 MG TABLET (FP) PO SCH ×2 (10:34→22:43)
--- NOTE | 2017-11-13 14:11 | PN ---
Progress Note, Physician Chief Complaint: AWAKE NAD SCHEDULED FOR PERCUTANEOUS NEPHROSTOMY TUBE - Current Medication List Current Medications: Active Medications Aspirin (Ecotrin -) 81 mg PO DAILY [facility] Last Admin: 11/11/17 09:20 Dose: 81 mg Clopidogrel Bisulfate (Plavix -) 75 mg PO DAILY [facility] Last Admin: 11/11/17 09:20 Dose: 75 mg Dexamethasone (Decadron -) 4 mg PO BID [facility] Last Admin: 11/13/17 10:34 Dose: 4 mg Piperacillin Sod/Tazobactam (Sod 3.375 gm/ Dextrose) 50 mls @ 100 mls/hr IVPB Q8H-IV [facility]; Protocol Last Admin: 11/13/17 10:33 Dose: 100 mls/hr Insulin Aspart (Novolog Vial Sliding Scale -) 1 vial SQ ACHS [facility]; Protocol Last Admin: 11/13/17 11:51 Dose: Not Given Losartan Potassium (Cozaar -) 25 mg PO DAILY [facility] Last Admin: 11/13/17 10:34 Dose: 25 mg Metoprolol Tartrate (Lopressor -) 25 mg PO BID [facility] Last Admin: 11/13/17 10:34 Dose: 25 mg Oxycodone HCl (Roxicodone -) 5 mg PO Q4H PRN PRN Reason: PAIN LEVEL 1-5 Oxycodone HCl (Roxicodone -) 10 mg PO Q4H PRN PRN Reason: PAIN LEVEL 6-10 Last Admin: 11/12/17 18:32 Dose: 10 mg Pantoprazole Sodium (Protonix Iv) 40 mg IVPUSH DAILY [facility] Last Admin: 11/13/17 10:33 Dose: 40 mg - Objective Vital Signs: Vital Signs Temperature 98.4 F 11/13/17 06:59 Pulse Rate 80 11/13/17 06:59 Respiratory Rate 20 11/13/17 06:59 Blood Pressure 108/63 11/13/17 06:59 O2 Sat by Pulse Oximetry (%) 96 11/12/17 21:00 Constitutional: Yes: Other Eyes: Yes: WNL HENT: Yes: WNL Neck: Yes: WNL Cardiovascular: Yes: WNL Respiratory: Yes: WNL Gastrointestinal: Yes: Other Genitourinary: Yes: Sal[place] Present, Other Musculoskeletal: Yes: Muscle Weakness Extremities: Yes: Other Edema: Yes Edema: LLE: 1+, RLE: 1+ Peripheral Pulses WNL: Yes Integumentary: Yes: Other Wound/Incision: Yes: Dressing Dry and Intact Neurological: Yes: Pre-Existing Deficit ...Motor Strength: LLE, RLE Psychiatric: Yes: Other Labs: CBC, BMP 11/12/17 08:00 11/13/17 07:20 INR, PTT INR 1.54 (0.83-1.09) H 11/12/17 09:22 Problem List - Problems (1) HEYDI (acute kidney injury) Code(s): N17.9 - ACUTE KIDNEY FAILURE, UNSPECIFIED (2) Adrenal mass Code(s): E27.9 - DISORDER OF ADRENAL GLAND, UNSPECIFIED (3) Hydronephrosis Code(s): N13.30 - UNSPECIFIED HYDRONEPHROSIS (4) Sepsis Code(s): A41.9 - SEPSIS, UNSPECIFIED ORGANISM Qualifiers: Sepsis type: sepsis due to unspecified organism Qualified Code(s): A41.9 - Sepsis, unspecified organism (5) Supratherapeutic INR Code(s): R79.1 - ABNORMAL COAGULATION PROFILE (6) UTI (urinary tract infection) Code(s): N39.0 - URINARY TRACT INFECTION, SITE NOT SPECIFIED Qualifiers: Urinary tract infection type: acute cystitis Hematuria presence: with hematuria Qualified Code(s): N30.01 - Acute cystitis with hematuria (7) Anemia Code(s): D64.9 - ANEMIA, UNSPECIFIED (8) Anxiety Code(s): F41.9 - ANXIETY DISORDER, UNSPECIFIED (9) Bladder cancer Code(s): C67.9 - MALIGNANT NEOPLASM OF BLADDER, UNSPECIFIED (10) 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, managed as type 2 Code(s): E10.9 - TYPE 1 DIABETES MELLITUS WITHOUT COMPLICATIONS (14) Hyperlipidemia Code(s): E78.5 - HYPERLIPIDEMIA, UNSPECIFIED Qualifiers: Hyperlipidemia type: pure hypercholesterolemia Qualified Code(s): E78.00 - Pure hypercholesterolemia, unspecified; E78.0 - Pure hypercholesterolemia (15) Hypertension Code(s): I10 - ESSENTIAL (PRIMARY) HYPERTENSION Qualifiers: Hypertension type: essential hypertension Qualified Code(s): I10 - Essential (primary) hypertension (16) Metastasis Code(s): C79.9 - SECONDARY MALIGNANT NEOPLASM OF UNSPECIFIED SITE (17) Poor appetite Code(s): R63.0 - ANOREXIA (18) S/P coronary artery stent placement Code(s): Z95.5 - PRESENCE OF CORONARY ANGIOPLASTY IMPLANT AND GRAFT Assessment/Plan STOP PLAVIX AND AC FFP NEEDED FOR THURSDAY PERCUTANEOUS NEPHROSTOMY TUBE PT EVAL F/U PAIN CONTROL
--- NOTE | 2017-11-13 16:33 | PN ---
Progress Note, Physician History of Present Illness: Pt seen and examined at bedside. He is awake and alert. He denies shortness of breath. - Current Medication List Current Medications: Active Medications Aspirin (Ecotrin -) 81 mg PO DAILY [facility] Last Admin: 11/11/17 09:20 Dose: 81 mg Clopidogrel Bisulfate (Plavix -) 75 mg PO DAILY [facility] Last Admin: 11/11/17 09:20 Dose: 75 mg Dexamethasone (Decadron -) 4 mg PO BID [facility] Last Admin: 11/13/17 10:34 Dose: 4 mg Piperacillin Sod/Tazobactam (Sod 3.375 gm/ Dextrose) 50 mls @ 100 mls/hr IVPB Q8H-IV [facility]; Protocol Last Admin: 11/13/17 10:33 Dose: 100 mls/hr Insulin Aspart (Novolog Vial Sliding Scale -) 1 vial SQ ACHS [facility]; Protocol Last Admin: 11/13/17 11:51 Dose: Not Given Losartan Potassium (Cozaar -) 25 mg PO DAILY [facility] Last Admin: 11/13/17 10:34 Dose: 25 mg Metoprolol Tartrate (Lopressor -) 25 mg PO BID [facility] Last Admin: 11/13/17 10:34 Dose: 25 mg Oxycodone HCl (Roxicodone -) 5 mg PO Q4H PRN PRN Reason: PAIN LEVEL 1-5 Oxycodone HCl (Roxicodone -) 10 mg PO Q4H PRN PRN Reason: PAIN LEVEL 6-10 Last Admin: 11/12/17 18:32 Dose: 10 mg Pantoprazole Sodium (Protonix Iv) 40 mg IVPUSH DAILY [facility] Last Admin: 11/13/17 10:33 Dose: 40 mg - Objective Vital Signs: Vital Signs Temperature 97.6 F 11/13/17 10:00 Pulse Rate 77 11/13/17 10:00 Respiratory Rate 20 11/13/17 10:00 Blood Pressure 126/75 11/13/17 10:00 O2 Sat by Pulse Oximetry (%) 95 11/13/17 09:00 Constitutional: Yes: Calm Eyes: Yes: Conjunctiva Clear HENT: Yes: Atraumatic Cardiovascular: Yes: S1, S2 Respiratory: Yes: CTA Bilaterally Genitourinary: Yes: Other (ileal conduit) Musculoskeletal: Yes: WNL Edema: No Neurological: Yes: Oriented Psychiatric: Yes: Oriented Labs: CBC, BMP 11/12/17 08:00 11/13/17 07:20 INR, PTT INR 1.54 (0.83-1.09) H 11/12/17 09:22 Assessment/Plan Current Medications Generic Name Dose Route Start Last Admin Trade Name Freq PRN Reason Stop Dose Admin Aspirin 81 mg 11/09/17 10:00 11/11/17 09:20 Ecotrin - PO 81 mg DAILY [facility] Administration Clopidogrel Bisulfate 75 mg 11/09/17 10:00 11/11/17 09:20 Plavix - PO 75 mg DAILY [facility] Administration Dexamethasone 4 mg 11/12/17 22:00 11/13/17 10:34 Decadron - PO 4 mg BID [facility] Administration Piperacillin Sod/Tazobactam 50 mls @ 100 mls/hr 11/09/17 10:00 11/13/17 10:33 Sod 3.375 gm/ Dextrose IVPB 100 mls/hr Q8H-IV [facility] Administration Protocol Insulin Aspart 1 vial 11/09/17 07:00 11/13/17 11:51 Novolog Vial Sliding Scale - SQ Not Given ACHS [facility] Protocol Losartan Potassium 25 mg 11/13/17 10:00 11/13/17 10:34 Cozaar - PO 25 mg DAILY [facility] Administration Metoprolol Tartrate 25 mg 11/08/17 22:00 11/13/17 10:34 Lopressor - PO 25 mg BID [facility] Administration Oxycodone HCl 5 mg 11/12/17 18:16 Roxicodone - PO Q4H PRN PAIN LEVEL 1-5 Oxycodone HCl 10 mg 11/12/17 18:16 11/12/17 18:32 Roxicodone - PO 10 mg Q4H PRN Administration PAIN LEVEL 6-10 Pantoprazole Sodium 40 mg 11/09/17 10:00 11/13/17 10:33 Protonix Iv IVPUSH 40 mg DAILY [facility] Administration Impression 1. CKD 2. altered mental status 3. a-fib 4. DM 5. HTN 6. hx bladder cancer 7. leukocytosis 8. sepsis 9. hyperkalemia 10. chon Plan - gave another dose of potassium - nephrostomy scheduled for thursday - monitor renal function - taper steroids - endocrine follow up - monitor bp Dr Baltazar
[2017-11-14] MEDS ORDERED: PIPERACILLIN/TAZOBACTAM 3.375 GM VIAL IVPB ONE ×3 (02:04→17:14)
[2017-11-14] MEDS ORDERED: DEXTROSE 5%-WATER - 50 ML IVPB ONE ×3 (02:04→17:15)
[2017-11-14] MEDS: PIPERACILLIN/TAZOB 3.375 GM 3.375 GM in DEXTROSE 5%-WATER - 50 ML IVPB SCH ×3 (02:22→17:36)
[2017-11-14] MEDS: INSULIN SLIDING SCALE (NOVOLOG) 1 VIAL SQ SCH ×4 (06:20→21:36)
[2017-11-14] MEDS: LOSARTAN POTASSIUM 25 MG TABLET PO SCH (11:03)
[2017-11-14] MEDS: METOPROLOL TARTRATE 25 MG TABLET (FP) PO SCH ×2 (11:03→21:36)
[2017-11-14] MEDS: DEXAMETHASONE 4 MG TABLET (FP) PO SCH ×2 (11:04→21:36)
--- NOTE | 2017-11-14 11:15 | PN ---
Progress Note, Physician Chief Complaint: AWAKE ALERT FAMILY BEDSIDE - Current Medication List Current Medications: Active Medications Aspirin (Ecotrin -) 81 mg PO DAILY [facility] Last Admin: 11/11/17 09:20 Dose: 81 mg Clopidogrel Bisulfate (Plavix -) 75 mg PO DAILY [facility] Last Admin: 11/11/17 09:20 Dose: 75 mg Dexamethasone (Decadron -) 4 mg PO BID [facility] Last Admin: 11/14/17 11:04 Dose: 4 mg Piperacillin Sod/Tazobactam (Sod 3.375 gm/ Dextrose) 50 mls @ 100 mls/hr IVPB Q8H-IV [facility]; Protocol Last Admin: 11/14/17 11:04 Dose: 100 mls/hr Insulin Aspart (Novolog Vial Sliding Scale -) 1 vial SQ ACHS [facility]; Protocol Last Admin: 11/14/17 06:20 Dose: 2 units Losartan Potassium (Cozaar -) 25 mg PO DAILY [facility] Last Admin: 11/14/17 11:03 Dose: 25 mg Metoprolol Tartrate (Lopressor -) 25 mg PO BID [facility] Last Admin: 11/14/17 11:03 Dose: 25 mg Oxycodone HCl (Roxicodone -) 5 mg PO Q4H PRN PRN Reason: PAIN LEVEL 1-5 Last Admin: 11/13/17 22:47 Dose: 5 mg Oxycodone HCl (Roxicodone -) 10 mg PO Q4H PRN PRN Reason: PAIN LEVEL 6-10 Last Admin: 11/12/17 18:32 Dose: 10 mg Pantoprazole Sodium (Protonix Iv) 40 mg IVPUSH DAILY [facility] Last Admin: 11/13/17 10:33 Dose: 40 mg - Objective Vital Signs: Vital Signs Temperature 98.5 F 11/14/17 06:00 Pulse Rate 101 H 11/14/17 06:00 Respiratory Rate 20 11/14/17 06:00 Blood Pressure 100/68 11/14/17 06:00 O2 Sat by Pulse Oximetry (%) 95 11/13/17 21:00 Constitutional: Yes: No Distress Eyes: Yes: WNL HENT: Yes: WNL Neck: Yes: WNL Cardiovascular: Yes: WNL Respiratory: Yes: WNL Gastrointestinal: Yes: Distention Genitourinary: Yes: Sal[place] Present Musculoskeletal: Yes: Muscle Weakness Extremities: Yes: Other Edema: No Integumentary: Yes: WNL Wound/Incision: Yes: Clean/Dry Neurological: Yes: Pre-Existing Deficit ...Motor Strength: LLE, RLE Psychiatric: Yes: Other Labs: CBC, BMP 11/12/17 08:00 11/13/17 07:20 INR, PTT INR 1.54 (0.83-1.09) H 11/12/17 09:22 Problem List - Problems (1) HEYDI (acute kidney injury) Code(s): N17.9 - ACUTE KIDNEY FAILURE, UNSPECIFIED (2) Adrenal mass Code(s): E27.9 - DISORDER OF ADRENAL GLAND, UNSPECIFIED (3) Hydronephrosis Code(s): N13.30 - UNSPECIFIED HYDRONEPHROSIS (4) Sepsis Code(s): A41.9 - SEPSIS, UNSPECIFIED ORGANISM Qualifiers: Sepsis type: sepsis due to unspecified organism Qualified Code(s): A41.9 - Sepsis, unspecified organism (5) Supratherapeutic INR Code(s): R79.1 - ABNORMAL COAGULATION PROFILE (6) UTI (urinary tract infection) Code(s): N39.0 - URINARY TRACT INFECTION, SITE NOT SPECIFIED Qualifiers: Urinary tract infection type: acute cystitis Hematuria presence: with hematuria Qualified Code(s): N30.01 - Acute cystitis with hematuria (7) Anemia Code(s): D64.9 - ANEMIA, UNSPECIFIED (8) Anxiety Code(s): F41.9 - ANXIETY DISORDER, UNSPECIFIED (9) Bladder cancer Code(s): C67.9 - MALIGNANT NEOPLASM OF BLADDER, UNSPECIFIED (10) 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, managed as type 2 Code(s): E10.9 - TYPE 1 DIABETES MELLITUS WITHOUT COMPLICATIONS (14) Hyperlipidemia Code(s): E78.5 - HYPERLIPIDEMIA, UNSPECIFIED Qualifiers: Hyperlipidemia type: pure hypercholesterolemia Qualified Code(s): E78.00 - Pure hypercholesterolemia, unspecified; E78.0 - Pure hypercholesterolemia (15) Hypertension Code(s): I10 - ESSENTIAL (PRIMARY) HYPERTENSION Qualifiers: Hypertension type: essential hypertension Qualified Code(s): I10 - Essential (primary) hypertension (16) Metastasis Code(s): C79.9 - SECONDARY MALIGNANT NEOPLASM OF UNSPECIFIED SITE (17) Poor appetite Code(s): R63.0 - ANOREXIA (18) S/P coronary artery stent placement Code(s): Z95.5 - PRESENCE OF CORONARY ANGIOPLASTY IMPLANT AND GRAFT Assessment/Plan NEPHROSTOMY THURSDAY PLATLETS 1 UNIT BEFORE PROCEDURE, 2ND UNIT BEING TRANSPORTED TO I.R. CHECK LABS PLAVIX/ASA ON HOLD
[2017-11-14] MEDS: PANTOPRAZOLE SODIUM 40 MG VIAL IVPUSH SCH (11:42)
--- NOTE | 2017-11-14 11:50 | PN ---
Progress Note, Physician - Current Medication List Current Medications: Active Medications Aspirin (Ecotrin -) 81 mg PO DAILY [facility] Last Admin: 11/11/17 09:20 Dose: 81 mg Clopidogrel Bisulfate (Plavix -) 75 mg PO DAILY [facility] Last Admin: 11/11/17 09:20 Dose: 75 mg Dexamethasone (Decadron -) 4 mg PO BID [facility] Last Admin: 11/14/17 11:04 Dose: 4 mg Piperacillin Sod/Tazobactam (Sod 3.375 gm/ Dextrose) 50 mls @ 100 mls/hr IVPB Q8H-IV [facility]; Protocol Last Admin: 11/14/17 11:04 Dose: 100 mls/hr Insulin Aspart (Novolog Vial Sliding Scale -) 1 vial SQ ACHS [facility]; Protocol Last Admin: 11/14/17 11:42 Dose: 4 units Losartan Potassium (Cozaar -) 25 mg PO DAILY [facility] Last Admin: 11/14/17 11:03 Dose: 25 mg Metoprolol Tartrate (Lopressor -) 25 mg PO BID [facility] Last Admin: 11/14/17 11:03 Dose: 25 mg Oxycodone HCl (Roxicodone -) 5 mg PO Q4H PRN PRN Reason: PAIN LEVEL 1-5 Last Admin: 11/13/17 22:47 Dose: 5 mg Oxycodone HCl (Roxicodone -) 10 mg PO Q4H PRN PRN Reason: PAIN LEVEL 6-10 Last Admin: 11/12/17 18:32 Dose: 10 mg Pantoprazole Sodium (Protonix Iv) 40 mg IVPUSH DAILY [facility] Last Admin: 11/14/17 11:42 Dose: 40 mg - Objective Vital Signs: Vital Signs Temperature 98.5 F 11/14/17 06:00 Pulse Rate 101 H 11/14/17 06:00 Respiratory Rate 20 11/14/17 06:00 Blood Pressure 100/68 11/14/17 06:00 O2 Sat by Pulse Oximetry (%) 95 11/13/17 21:00 Eyes: Yes: WNL, Conjunctiva Clear, EOM Intact HENT: Yes: WNL, Atraumatic, Normocephalic Neck: Yes: WNL, Supple, Trachea Midline Cardiovascular: Yes: WNL, Regular Rate and Rhythm Respiratory: Yes: WNL, Regular, CTA Bilaterally Gastrointestinal: Yes: WNL, Normal Bowel Sounds Genitourinary: Yes: WNL Musculoskeletal: Yes: WNL Extremities: Yes: WNL Edema: No Integumentary: Yes: WNL Neurological: Yes: WNL, Alert, Oriented ...Motor Strength: WNL Psychiatric: Yes: WNL Labs: CBC, BMP 11/12/17 08:00 11/13/17 07:20 INR, PTT INR 1.54 (0.83-1.09) H 11/12/17 09:22 Assessment/Plan - Problems (1) Sepsis Assessment/Plan: remains leukocytotic; likely due to both bacteremia and steroids. On Zosyn--day 7. F/u with ID. Code(s): A41.9 - SEPSIS, UNSPECIFIED ORGANISM Qualifiers: Sepsis type: sepsis due to unspecified organism Qualified Code(s): A41.9 - Sepsis, unspecified organism (2) Anemia Code(s): D64.9 - ANEMIA, UNSPECIFIED (3) Anxiety Code(s): F41.9 - ANXIETY DISORDER, UNSPECIFIED (4) Atrial fibrillation with rapid ventricular response Assessment/Plan: Pt;s HR and BP have been better-controlled. On metoprolol tartrate 25 mg bid; f/u HR and BP. Restart warfarin(INR now < 2); keep INR 2-3. EKG in am. 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 Code(s): C67.9 - MALIGNANT NEOPLASM OF BLADDER, UNSPECIFIED; C78.00 - SECONDARY MALIGNANT NEOPLASM OF UNSPECIFIED LUNG (6) CAD (coronary artery disease) Code(s): I25.10 - ATHSCL HEART DISEASE OF [place] CORONARY ARTERY W/O ANG PCTRS s/p LIDIA mRCA June 2017. DAPT stopped (without our knowledge) prior to nephrostomy tube Restart DAPT as soon as possible after procedure. Patient is cleared for the procedure Qualifiers: Coronary Disease-Associated Artery/Lesion type: [place] artery [place] vs. transplanted heart: [place] heart Associated angina: without angina Qualified Code(s): I25.10 - Atherosclerotic heart disease of [place] coronary artery without angina pectoris (7) Cardiomyopathy Assessment/Plan: severely reduced LVEF. On metoprolol. Start losartan 25 mg daily. will d/w prognosis if life expectancy is not longer than the 6 months no ICD is indicated. Code(s): I42.9 - CARDIOMYOPATHY, UNSPECIFIED Qualifiers: Cardiomyopathy type: ischemic Qualified Code(s): I25.5 - Ischemic cardiomyopathy (8) Chronic systolic (congestive) heart failure Assessment/Plan: On metoprolol. Start ARB (losartan 25 mg daily). Add aldactone if BP, renal function, and electrolytes allow. F/u BUN/Cr, Is and Os, daily weight, electrolytes. Code(s): I50.22 - CHRONIC SYSTOLIC (CONGESTIVE) HEART FAILURE (9) Hyperlipidemia Code(s): E78.5 - HYPERLIPIDEMIA, UNSPECIFIED Qualifiers: Hyperlipidemia type: pure hypercholesterolemia Qualified Code(s): E78.00 - Pure hypercholesterolemia, unspecified; E78.0 - Pure hypercholesterolemia (10) Hypertension Code(s): I10 - ESSENTIAL (PRIMARY) HYPERTENSION Qualifiers: Hypertension type: essential hypertension Qualified Code(s): I10 - Essential (primary) hypertension (11) S/P coronary artery stent placement Code(s): Z95.5 - PRESENCE OF CORONARY ANGIOPLASTY IMPLANT AND GRAFT (12) Supratherapeutic INR Assessment/Plan: INR now < 2; restart warfarin, and keep INR 2-3. Code(s): R79.1 - ABNORMAL COAGULATION PROFILE (13) Hypokalemia Assessment/Plan: replete K; f/u all electrolytes. Start ARB (losartan 25 mg daily); besides aid in systolic CHF, may help balance K+. Code(s): E87.6 - HYPOKALEMIA
--- NOTE | 2017-11-14 14:53 | PN ---
Progress Note (short form) - Note Progress Note: awake in bed comfortable denies pain dizzyness Laboratory Results - last 24 hr 11/13/17 11/13/17 11/13/17 07:20 16:30 22:41 POC Glucometer 151 197 Cortisol AM Sample 9.5 Cortisol PM Sample Cancelled 11/14/17 11/14/17 06:17 11:41 POC Glucometer 159 201 Cortisol AM Sample Cortisol PM Sample Current Active Problems HEYDI (acute kidney injury) (Acute) Adrenal mass (Acute) Hydronephrosis (Acute) Hypokalemia (Acute) Sepsis (Acute) Supratherapeutic INR (Acute) UTI (urinary tract infection) (Acute) Current Medications Generic Name Dose Route Start Last Admin Trade Name Freq PRN Reason Stop Dose Admin Aspirin 81 mg 11/09/17 10:00 11/11/17 09:20 Ecotrin - PO 81 mg DAILY ANGELITA Administration Clopidogrel Bisulfate 75 mg 11/09/17 10:00 11/11/17 09:20 Plavix - PO 75 mg DAILY ANGELITA Administration Dexamethasone 4 mg 11/12/17 22:00 11/14/17 11:04 Decadron - PO 4 mg BID ANGELITA Administration Piperacillin Sod/Tazobactam 50 mls @ 100 mls/hr 11/09/17 10:00 11/14/17 11:04 Sod 3.375 gm/ Dextrose IVPB 100 mls/hr Q8H-IV ANGELITA Administration Protocol Insulin Aspart 1 vial 11/09/17 07:00 11/14/17 11:42 Novolog Vial Sliding Scale - SQ 4 units ACHS ANGELITA Administration Protocol Losartan Potassium 25 mg 11/13/17 10:00 11/14/17 11:03 Cozaar - PO 25 mg DAILY ANGELITA Administration Metoprolol Tartrate 25 mg 11/08/17 22:00 11/14/17 11:03 Lopressor - PO 25 mg BID ANGELITA Administration Oxycodone HCl 5 mg 11/12/17 18:16 11/13/17 22:47 Roxicodone - PO 5 mg Q4H PRN Administration PAIN LEVEL 1-5 Oxycodone HCl 10 mg 11/12/17 18:16 11/12/17 18:32 Roxicodone - PO 10 mg Q4H PRN Administration PAIN LEVEL 6-10 Pantoprazole Sodium 40 mg 11/09/17 10:00 11/14/17 11:42 Protonix Iv IVPUSH 40 mg DAILY ANGELITA Administration check cortisol level am/pm on dexamethasone Problem List - Problems (1) HEYDI (acute kidney injury) Code(s): N17.9 - ACUTE KIDNEY FAILURE, UNSPECIFIED (2) Adrenal mass Code(s): E27.9 - DISORDER OF ADRENAL GLAND, UNSPECIFIED (3) Hydronephrosis Code(s): N13.30 - UNSPECIFIED HYDRONEPHROSIS (4) Sepsis Code(s): A41.9 - SEPSIS, UNSPECIFIED ORGANISM Qualifiers: Sepsis type: sepsis due to unspecified organism Qualified Code(s): A41.9 - Sepsis, unspecified organism (5) Supratherapeutic INR Code(s): R79.1 - ABNORMAL COAGULATION PROFILE (6) Anemia Code(s): D64.9 - ANEMIA, UNSPECIFIED (7) Anxiety Code(s): F41.9 - ANXIETY DISORDER, UNSPECIFIED
--- NOTE | 2017-11-14 15:03 | PN ---
Progress Note, Physician History of Present Illness: Pt seen and examined at bedside. He is awake and appears comfortable. He denies shortness of breath. - Current Medication List Current Medications: Active Medications Aspirin (Ecotrin -) 81 mg PO DAILY [facility] Last Admin: 11/11/17 09:20 Dose: 81 mg Clopidogrel Bisulfate (Plavix -) 75 mg PO DAILY [facility] Last Admin: 11/11/17 09:20 Dose: 75 mg Dexamethasone (Decadron -) 4 mg PO BID [facility] Last Admin: 11/14/17 11:04 Dose: 4 mg Piperacillin Sod/Tazobactam (Sod 3.375 gm/ Dextrose) 50 mls @ 100 mls/hr IVPB Q8H-IV [facility]; Protocol Last Admin: 11/14/17 11:04 Dose: 100 mls/hr Insulin Aspart (Novolog Vial Sliding Scale -) 1 vial SQ ACHS [facility]; Protocol Last Admin: 11/14/17 11:42 Dose: 4 units Losartan Potassium (Cozaar -) 25 mg PO DAILY [facility] Last Admin: 11/14/17 11:03 Dose: 25 mg Metoprolol Tartrate (Lopressor -) 25 mg PO BID [facility] Last Admin: 11/14/17 11:03 Dose: 25 mg Oxycodone HCl (Roxicodone -) 5 mg PO Q4H PRN PRN Reason: PAIN LEVEL 1-5 Last Admin: 11/13/17 22:47 Dose: 5 mg Oxycodone HCl (Roxicodone -) 10 mg PO Q4H PRN PRN Reason: PAIN LEVEL 6-10 Last Admin: 11/12/17 18:32 Dose: 10 mg Pantoprazole Sodium (Protonix Iv) 40 mg IVPUSH DAILY [facility] Last Admin: 11/14/17 11:42 Dose: 40 mg - Objective Vital Signs: Vital Signs Temperature 97.8 F 11/14/17 10:05 Pulse Rate 78 11/14/17 10:05 Respiratory Rate 18 11/14/17 10:05 Blood Pressure 102/59 L 11/14/17 10:05 O2 Sat by Pulse Oximetry (%) 95 11/13/17 21:00 Constitutional: Yes: Calm Eyes: Yes: Conjunctiva Clear HENT: Yes: Atraumatic Neck: Yes: Supple Cardiovascular: Yes: S1, S2 Respiratory: Yes: CTA Bilaterally Gastrointestinal: Yes: Soft Genitourinary: Yes: Other (ileal conduit) Edema: No Neurological: Yes: Oriented Psychiatric: Yes: Oriented Labs: CBC, BMP 11/12/17 08:00 11/13/17 07:20 INR, PTT INR 1.54 (0.83-1.09) H 11/12/17 09:22 Problem List - Problems (1) Hydronephrosis Code(s): N13.30 - UNSPECIFIED HYDRONEPHROSIS (2) Sepsis Code(s): A41.9 - SEPSIS, UNSPECIFIED ORGANISM Qualifiers: Sepsis type: sepsis due to unspecified organism Qualified Code(s): A41.9 - Sepsis, unspecified organism (3) UTI (urinary tract infection) Code(s): N39.0 - URINARY TRACT INFECTION, SITE NOT SPECIFIED Qualifiers: Urinary tract infection type: acute cystitis Hematuria presence: with hematuria Qualified Code(s): N30.01 - Acute cystitis with hematuria (4) Renal dysfunction Code(s): N28.9 - DISORDER OF KIDNEY AND URETER, UNSPECIFIED Assessment/Plan Current Medications Generic Name Dose Route Start Last Admin Trade Name Freq PRN Reason Stop Dose Admin Aspirin 81 mg 11/09/17 10:00 11/11/17 09:20 Ecotrin - PO 81 mg DAILY ANGELITA Administration Clopidogrel Bisulfate 75 mg 11/09/17 10:00 11/11/17 09:20 Plavix - PO 75 mg DAILY ANGELITA Administration Dexamethasone 4 mg 11/12/17 22:00 11/14/17 11:04 Decadron - PO 4 mg BID ANGELITA Administration Piperacillin Sod/Tazobactam 50 mls @ 100 mls/hr 11/09/17 10:00 11/14/17 11:04 Sod 3.375 gm/ Dextrose IVPB 100 mls/hr Q8H-IV ANGELITA Administration Protocol Insulin Aspart 1 vial 11/09/17 07:00 11/14/17 11:42 Novolog Vial Sliding Scale - SQ 4 units ACHS ANGELITA Administration Protocol Losartan Potassium 25 mg 11/13/17 10:00 11/14/17 11:03 Cozaar - PO 25 mg DAILY ANGELITA Administration Metoprolol Tartrate 25 mg 11/08/17 22:00 11/14/17 11:03 Lopressor - PO 25 mg BID ANGELITA Administration Oxycodone HCl 5 mg 11/12/17 18:16 11/13/17 22:47 Roxicodone - PO 5 mg Q4H PRN Administration PAIN LEVEL 1-5 Oxycodone HCl 10 mg 11/12/17 18:16 11/12/17 18:32 Roxicodone - PO 10 mg Q4H PRN Administration PAIN LEVEL 6-10 Pantoprazole Sodium 40 mg 11/09/17 10:00 11/14/17 11:42 Protonix Iv IVPUSH 40 mg DAILY ANGELITA Administration Impression 1. CKD 2. altered mental status 3. a-fib 4. DM 5. HTN 6. hx bladder cancer 7. leukocytosis 8. sepsis 9. hyperkalemia 10. chon Plan - check bmp - will hold cocaitlinar as he is hypotensive - nephrostomy scheduled for thursday - monitor renal function Dr Baltazar
[2017-11-15] MEDS ORDERED: DEXTROSE 5%-WATER - 50 ML IVPB ONE ×2 (01:41→17:13)
[2017-11-15] MEDS ORDERED: PIPERACILLIN/TAZOBACTAM 3.375 GM VIAL IVPB ONE ×3 (01:41→17:13)
[2017-11-15] MEDS: PIPERACILLIN/TAZOB 3.375 GM 3.375 GM in DEXTROSE 5%-WATER - 50 ML IVPB SCH ×3 (01:48→17:33)
[2017-11-15] MEDS: INSULIN SLIDING SCALE (NOVOLOG) 1 VIAL SQ SCH ×4 (06:06→21:13)
--- NOTE | 2017-11-15 08:29 | PN ---
Progress Note, Physician - Current Medication List Current Medications: Active Medications Aspirin (Ecotrin -) 81 mg PO DAILY [facility] Last Admin: 11/11/17 09:20 Dose: 81 mg Clopidogrel Bisulfate (Plavix -) 75 mg PO DAILY [facility] Last Admin: 11/11/17 09:20 Dose: 75 mg Dexamethasone (Decadron -) 4 mg PO BID [facility] Last Admin: 11/14/17 21:36 Dose: 4 mg Piperacillin Sod/Tazobactam (Sod 3.375 gm/ Dextrose) 50 mls @ 100 mls/hr IVPB Q8H-IV [facility]; Protocol Last Admin: 11/15/17 01:48 Dose: 100 mls/hr Insulin Aspart (Novolog Vial Sliding Scale -) 1 vial SQ ACHS [facility]; Protocol Last Admin: 11/15/17 06:06 Dose: Not Given Metoprolol Tartrate (Lopressor -) 25 mg PO BID [facility] Last Admin: 11/14/17 21:36 Dose: 25 mg Oxycodone HCl (Roxicodone -) 5 mg PO Q4H PRN PRN Reason: PAIN LEVEL 1-5 Last Admin: 11/13/17 22:47 Dose: 5 mg Oxycodone HCl (Roxicodone -) 10 mg PO Q4H PRN PRN Reason: PAIN LEVEL 6-10 Last Admin: 11/12/17 18:32 Dose: 10 mg Pantoprazole Sodium (Protonix Iv) 40 mg IVPUSH DAILY [facility] Last Admin: 11/14/17 11:42 Dose: 40 mg - Objective Vital Signs: Vital Signs Temperature 98.2 F 11/15/17 06:00 Pulse Rate 76 11/15/17 06:00 Respiratory Rate 18 11/15/17 06:00 Blood Pressure 109/71 11/15/17 06:00 O2 Sat by Pulse Oximetry (%) 95 11/14/17 22:00 Eyes: Yes: WNL, Conjunctiva Clear, EOM Intact HENT: Yes: WNL, Atraumatic, Normocephalic Neck: Yes: WNL, Supple, Trachea Midline Cardiovascular: Yes: WNL, Regular Rate and Rhythm Respiratory: Yes: WNL, Regular, CTA Bilaterally Gastrointestinal: Yes: WNL, Normal Bowel Sounds Genitourinary: Yes: WNL Musculoskeletal: Yes: WNL Extremities: Yes: WNL Edema: No Integumentary: Yes: WNL Neurological: Yes: WNL, Alert, Oriented ...Motor Strength: WNL Psychiatric: Yes: WNL Labs: CBC, BMP 11/12/17 08:00 INR, PTT INR 1.54 (0.83-1.09) H 11/12/17 09:22 Assessment/Plan - Problems (1) Sepsis Assessment/Plan: remains leukocytotic; likely due to both bacteremia and steroids. On Zosyn--day 7. F/u with ID. Code(s): A41.9 - SEPSIS, UNSPECIFIED ORGANISM Qualifiers: Sepsis type: sepsis due to unspecified organism Qualified Code(s): A41.9 - Sepsis, unspecified organism (2) Anemia Code(s): D64.9 - ANEMIA, UNSPECIFIED (3) Anxiety Code(s): F41.9 - ANXIETY DISORDER, UNSPECIFIED (4) Atrial fibrillation with rapid ventricular response Assessment/Plan: Pt;s HR and BP have been better-controlled. On metoprolol tartrate 25 mg bid; f/u HR and BP. Restart warfarin(INR now < 2); keep INR 2-3. EKG in am. 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 Code(s): C67.9 - MALIGNANT NEOPLASM OF BLADDER, UNSPECIFIED; C78.00 - SECONDARY MALIGNANT NEOPLASM OF UNSPECIFIED LUNG (6) CAD (coronary artery disease) Code(s): I25.10 - ATHSCL HEART DISEASE OF [place] CORONARY ARTERY W/O ANG PCTRS s/p LIDIA mRCA June 2017. DAPT stopped (without our knowledge) prior to nephrostomy tube Restart DAPT as soon as possible after procedure. Patient is cleared for the procedure Qualifiers: Coronary Disease-Associated Artery/Lesion type: [place] artery [place] vs. transplanted heart: [place] heart Associated angina: without angina Qualified Code(s): I25.10 - Atherosclerotic heart disease of [place] coronary artery without angina pectoris (7) Cardiomyopathy Assessment/Plan: severely reduced LVEF. On metoprolol. Start losartan 25 mg daily. will d/w prognosis if life expectancy is not longer than the 6 months no ICD is indicated. Code(s): I42.9 - CARDIOMYOPATHY, UNSPECIFIED Qualifiers: Cardiomyopathy type: ischemic Qualified Code(s): I25.5 - Ischemic cardiomyopathy (8) Chronic systolic (congestive) heart failure Assessment/Plan: On metoprolol. Start ARB (losartan 25 mg daily). Add aldactone if BP, renal function, and electrolytes allow. F/u BUN/Cr, Is and Os, daily weight, electrolytes. Code(s): I50.22 - CHRONIC SYSTOLIC (CONGESTIVE) HEART FAILURE (9) Hyperlipidemia Code(s): E78.5 - HYPERLIPIDEMIA, UNSPECIFIED Qualifiers: Hyperlipidemia type: pure hypercholesterolemia Qualified Code(s): E78.00 - Pure hypercholesterolemia, unspecified; E78.0 - Pure hypercholesterolemia (10) Hypertension Code(s): I10 - ESSENTIAL (PRIMARY) HYPERTENSION Qualifiers: Hypertension type: essential hypertension Qualified Code(s): I10 - Essential (primary) hypertension (11) S/P coronary artery stent placement Code(s): Z95.5 - PRESENCE OF CORONARY ANGIOPLASTY IMPLANT AND GRAFT (12) Supratherapeutic INR Assessment/Plan: INR now < 2; restart warfarin, and keep INR 2-3. Code(s): R79.1 - ABNORMAL COAGULATION PROFILE (13) Hypokalemia Assessment/Plan: replete K; f/u all electrolytes. Start ARB (losartan 25 mg daily); besides aid in systolic CHF, may help balance K+. Code(s): E87.6 - HYPOKALEMIA
[2017-11-15 08:52] LABS: ALK PHOS 250 U/L (45-117); ANION GAP 11 MMOL/L (8-16); BILIRUBIN,TOTAL 0.6 mg/dL (0.2-1); BLOOD UREA NITROGEN 26 mg/dL (7-18); CALCIUM 9.1 mg/dL (8.5-10.1); CHLORIDE 107 mmol/L (98-107); CO2 23 mmol/L (21-32); GLUCOSE,RANDOM 118 mg/dL (74-106); POTASSIUM 3.9 mmol/L (3.5-5.1); SGOT/AST 19 U/L (15-37); SGPT/ALT 41 U/L (13-61); SODIUM 141 mmol/L (136-145)
[2017-11-15] MEDS ORDERED: PT OWN MED DRAWER 7, Y5N ONE (09:15)
[2017-11-15] MEDS: oxyCODONE HCL 5 MG TABLET PO PRN (09:29)
[2017-11-15] MEDS: METOPROLOL TARTRATE 25 MG TABLET (FP) PO SCH ×2 (09:30→21:13)
[2017-11-15] MEDS: DEXAMETHASONE 4 MG TABLET (FP) PO SCH ×2 (09:30→21:13)
[2017-11-15] MEDS: PANTOPRAZOLE SODIUM 40 MG VIAL IVPUSH SCH (09:31)
--- NOTE | 2017-11-15 11:06 | PN ---
Progress Note, Physician Chief Complaint: AWAKE ALERT NAD - Current Medication List Current Medications: Active Medications Aspirin (Ecotrin -) 81 mg PO DAILY [facility] Last Admin: 11/11/17 09:20 Dose: 81 mg Clopidogrel Bisulfate (Plavix -) 75 mg PO DAILY [facility] Last Admin: 11/11/17 09:20 Dose: 75 mg Dexamethasone (Decadron -) 4 mg PO BID [facility] Last Admin: 11/15/17 09:30 Dose: 4 mg Piperacillin Sod/Tazobactam (Sod 3.375 gm/ Dextrose) 50 mls @ 100 mls/hr IVPB Q8H-IV [facility]; Protocol Last Admin: 11/15/17 09:30 Dose: 100 mls/hr Insulin Aspart (Novolog Vial Sliding Scale -) 1 vial SQ ACHS [facility]; Protocol Last Admin: 11/15/17 06:06 Dose: Not Given Metoprolol Tartrate (Lopressor -) 25 mg PO BID [facility] Last Admin: 11/15/17 09:30 Dose: 25 mg Oxycodone HCl (Roxicodone -) 5 mg PO Q4H PRN PRN Reason: PAIN LEVEL 1-5 Last Admin: 11/13/17 22:47 Dose: 5 mg Oxycodone HCl (Roxicodone -) 10 mg PO Q4H PRN PRN Reason: PAIN LEVEL 6-10 Last Admin: 11/15/17 09:29 Dose: 10 mg Pantoprazole Sodium (Protonix Iv) 40 mg IVPUSH DAILY [facility] Last Admin: 11/15/17 09:31 Dose: 40 mg - Objective Vital Signs: Vital Signs Temperature 98.2 F 11/15/17 06:00 Pulse Rate 76 11/15/17 06:00 Respiratory Rate 18 11/15/17 06:00 Blood Pressure 109/71 11/15/17 06:00 O2 Sat by Pulse Oximetry (%) 95 11/14/17 22:00 Constitutional: Yes: No Distress Eyes: Yes: WNL HENT: Yes: WNL Neck: Yes: WNL Cardiovascular: Yes: WNL Respiratory: Yes: WNL Gastrointestinal: Yes: Distention Genitourinary: Yes: [place] Present Musculoskeletal: Yes: Muscle Weakness Extremities: Yes: Other Edema: No Peripheral Pulses WNL: Yes Integumentary: Yes: WNL Wound/Incision: Yes: Clean/Dry Neurological: Yes: Pre-Existing Deficit ...Motor Strength: LLE, RLE Psychiatric: Yes: WNL Labs: CBC, BMP 11/12/17 08:00 11/15/17 06:00 INR, PTT INR 1.54 (0.83-1.09) H 11/12/17 09:22 Problem List - Problems (1) HEYDI (acute kidney injury) Code(s): N17.9 - ACUTE KIDNEY FAILURE, UNSPECIFIED (2) Adrenal mass Code(s): E27.9 - DISORDER OF ADRENAL GLAND, UNSPECIFIED (3) Hydronephrosis Code(s): N13.30 - UNSPECIFIED HYDRONEPHROSIS (4) Sepsis Code(s): A41.9 - SEPSIS, UNSPECIFIED ORGANISM Qualifiers: Sepsis type: sepsis due to unspecified organism Qualified Code(s): A41.9 - Sepsis, unspecified organism (5) Supratherapeutic INR Code(s): R79.1 - ABNORMAL COAGULATION PROFILE (6) UTI (urinary tract infection) Code(s): N39.0 - URINARY TRACT INFECTION, SITE NOT SPECIFIED Qualifiers: Urinary tract infection type: acute cystitis Hematuria presence: with hematuria Qualified Code(s): N30.01 - Acute cystitis with hematuria (7) Anemia Code(s): D64.9 - ANEMIA, UNSPECIFIED (8) Anxiety Code(s): F41.9 - ANXIETY DISORDER, UNSPECIFIED (9) Bladder cancer Code(s): C67.9 - MALIGNANT NEOPLASM OF BLADDER, UNSPECIFIED (10) 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 vs. 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, managed as type 2 Code(s): E10.9 - TYPE 1 DIABETES [place] WITHOUT COMPLICATIONS (14) Hyperlipidemia Code(s): E78.5 - HYPERLIPIDEMIA, UNSPECIFIED Qualifiers: Hyperlipidemia type: pure hypercholesterolemia Qualified Code(s): E78.00 - Pure hypercholesterolemia, unspecified; E78.0 - Pure hypercholesterolemia (15) Hypertension Code(s): I10 - ESSENTIAL (PRIMARY) HYPERTENSION Qualifiers: Hypertension type: essential hypertension Qualified Code(s): I10 - Essential (primary) hypertension (16) Metastasis Code(s): C79.9 - SECONDARY MALIGNANT NEOPLASM OF UNSPECIFIED SITE (17) Poor appetite Code(s): R63.0 - ANOREXIA (18) S/P coronary artery stent placement Code(s): Z95.5 - PRESENCE OF CORONARY ANGIOPLASTY IMPLANT AND GRAFT Assessment/Plan NEPHROSTOMY TOMORROW PLATLETS 1 UNIT BEFORE PROCEDURE, 2ND UNIT BEING TRANSPORTED TO I.R. CHECK LABS PLAVIX/ASA ON HOLD
--- NOTE | 2017-11-15 16:37 | PN ---
Progress Note, Physician History of Present Illness: Pt seen and examined at bedside. He denies shortness of breath. - Current Medication List Current Medications: Active Medications Aspirin (Ecotrin -) 81 mg PO DAILY [facility] Last Admin: 11/11/17 09:20 Dose: 81 mg Clopidogrel Bisulfate (Plavix -) 75 mg PO DAILY [facility] Last Admin: 11/11/17 09:20 Dose: 75 mg Dexamethasone (Decadron -) 4 mg PO BID [facility] Last Admin: 11/15/17 09:30 Dose: 4 mg Piperacillin Sod/Tazobactam (Sod 3.375 gm/ Dextrose) 50 mls @ 100 mls/hr IVPB Q8H-IV [facility]; Protocol Last Admin: 11/15/17 09:30 Dose: 100 mls/hr Insulin Aspart (Novolog Vial Sliding Scale -) 1 vial SQ ACHS [facility]; Protocol Last Admin: 11/15/17 12:02 Dose: 2 units Metoprolol Tartrate (Lopressor -) 25 mg PO BID [facility] Last Admin: 11/15/17 09:30 Dose: 25 mg Oxycodone HCl (Roxicodone -) 5 mg PO Q4H PRN PRN Reason: PAIN LEVEL 1-5 Last Admin: 11/13/17 22:47 Dose: 5 mg Oxycodone HCl (Roxicodone -) 10 mg PO Q4H PRN PRN Reason: PAIN LEVEL 6-10 Last Admin: 11/15/17 09:29 Dose: 10 mg Pantoprazole Sodium (Protonix Iv) 40 mg IVPUSH DAILY [facility] Last Admin: 11/15/17 09:31 Dose: 40 mg - Objective Vital Signs: Vital Signs Temperature 98.6 F 11/15/17 15:00 Pulse Rate 98 H 11/15/17 15:00 Respiratory Rate 18 11/15/17 15:00 Blood Pressure 110/59 L 11/15/17 15:00 O2 Sat by Pulse Oximetry (%) 97 11/15/17 09:00 Constitutional: Yes: Calm Eyes: Yes: Conjunctiva Clear HENT: Yes: Atraumatic Neck: Yes: Supple Cardiovascular: Yes: S1, S2 Respiratory: Yes: CTA Bilaterally Gastrointestinal: Yes: Normal Bowel Sounds, Soft Genitourinary: Yes: Other (ileal conduit) Musculoskeletal: Yes: WNL Edema: No Neurological: Yes: Oriented Psychiatric: Yes: Oriented Labs: CBC, BMP 10/04/18 08:00 11/15/17 06:00 INR, PTT INR 1.54 (0.83-1.09) H 11/12/17 09:22 Problem List - Problems (1) Hydronephrosis Code(s): N13.30 - UNSPECIFIED HYDRONEPHROSIS (2) Sepsis Code(s): A41.9 - SEPSIS, UNSPECIFIED ORGANISM Qualifiers: Sepsis type: sepsis due to unspecified organism Qualified Code(s): A41.9 - Sepsis, unspecified organism (3) UTI (urinary tract infection) Code(s): N39.0 - URINARY TRACT INFECTION, SITE NOT SPECIFIED Qualifiers: Urinary tract infection type: acute cystitis Hematuria presence: with hematuria Qualified Code(s): N30.01 - Acute cystitis with hematuria (4) Renal dysfunction Code(s): N28.9 - DISORDER OF KIDNEY AND URETER, UNSPECIFIED Assessment/Plan Current Medications Generic Name Dose Route Start Last Admin Trade Name Freq PRN Reason Stop Dose Admin Aspirin 81 mg 11/09/17 10:00 11/11/17 09:20 Ecotrin - PO 81 mg DAILY ANGELITA Administration Clopidogrel Bisulfate 75 mg 11/09/17 10:00 11/11/17 09:20 Plavix - PO 75 mg DAILY ANGELITA Administration Dexamethasone 4 mg 11/12/17 22:00 11/15/17 09:30 Decadron - PO 4 mg BID ANGELITA Administration Piperacillin Sod/Tazobactam 50 mls @ 100 mls/hr 11/09/17 10:00 11/15/17 09:30 Sod 3.375 gm/ Dextrose IVPB 100 mls/hr Q8H-IV ANGELITA Administration Protocol Insulin Aspart 1 vial 11/09/17 07:00 11/15/17 12:02 Novolog Vial Sliding Scale - SQ 2 units ACHS ANGELITA Administration Protocol Metoprolol Tartrate 25 mg 11/08/17 22:00 11/15/17 09:30 Lopressor - PO 25 mg BID ANGELITA Administration Oxycodone HCl 5 mg 11/12/17 18:16 11/13/17 22:47 Roxicodone - PO 5 mg Q4H PRN Administration PAIN LEVEL 1-5 Oxycodone HCl 10 mg 11/12/17 18:16 11/15/17 09:29 Roxicodone - PO 10 mg Q4H PRN Administration PAIN LEVEL 6-10 Pantoprazole Sodium 40 mg 11/09/17 10:00 11/15/17 09:31 Protonix Iv IVPUSH 40 mg DAILY ANGELITA Administration Impression 1. CKD 2. altered mental status 3. a-fib 4. DM 5. HTN 6. hx bladder cancer 7. leukocytosis 8. sepsis 9. hyperkalemia 10. chon Plan - nephrostomy tomorrow - potassium improved - monitor bp, has been labile - monitor renal function Dr Baltazar
[2017-11-16] MEDS ORDERED: DEXTROSE 5%-WATER - 50 ML IVPB ONE ×3 (02:37→18:11)
[2017-11-16] MEDS ORDERED: PIPERACILLIN/TAZOBACTAM 3.375 GM VIAL IVPB ONE ×3 (02:37→18:11)
[2017-11-16] MEDS: PIPERACILLIN/TAZOB 3.375 GM 3.375 GM in DEXTROSE 5%-WATER - 50 ML IVPB SCH ×3 (02:44→18:38)
[2017-11-16] MEDS: INSULIN SLIDING SCALE (NOVOLOG) 1 VIAL SQ SCH ×4 (06:29→21:14)
[2017-11-16] MEDS ORDERED: INSULIN (NOVOLOG) ASPART 100 UNITS/ML 10ML VIAL ONE ×2 (06:58→21:13)
[2017-11-16 07:39] LABS: HEMATOCRIT 38.2 % (35.4-49); HEMOGLOBIN 12.1 GM/dL (11.7-16.9); MCH 26.6 pg (25.7-33.7); MCHC 31.6 g/dl (32.0-35.9); MEAN CELL VOLUME 84.1 fl (80-96); MEAN PLT VOLUME 9.4 fl (7.5-11.1); PLATELET COUNT 260 K/MM3 (134-434); RBC 4.55 M/mm3 (4.00-5.60); RDW 17.6 % (11.9-15.9); WHITE BLOOD COUNT 21.9 K/mm3 (4.0-10.0)
[2017-11-16 08:08] LABS: INR 1.33 (0.83-1.09); PROTHROMBIN TIME (PATIENT) 15.7 SEC (9.7-13.0)
--- NOTE | 2017-11-16 09:02 | PN ---
Progress Note, Physician Chief Complaint: AWAKE LAERT SCHEDULED FOR NEPHROSTOMY TUBE TODAY PLATLET TRANSFUSION STARTED - Current Medication List Current Medications: Active Medications Aspirin (Ecotrin -) 81 mg PO DAILY [facility] Last Admin: 11/11/17 09:20 Dose: 81 mg Clopidogrel Bisulfate (Plavix -) 75 mg PO DAILY [facility] Last Admin: 11/11/17 09:20 Dose: 75 mg Dexamethasone (Decadron -) 4 mg PO BID [facility] Last Admin: 11/15/17 21:13 Dose: 4 mg Piperacillin Sod/Tazobactam (Sod 3.375 gm/ Dextrose) 50 mls @ 100 mls/hr IVPB Q8H-IV [facility]; Protocol Last Admin: 11/16/17 02:44 Dose: 100 mls/hr Insulin Aspart (Novolog Vial Sliding Scale -) 1 vial SQ ACHS [facility]; Protocol Last Admin: 11/16/17 06:29 Dose: Not Given Metoprolol Tartrate (Lopressor -) 25 mg PO BID [facility] Last Admin: 11/15/17 21:13 Dose: 25 mg Oxycodone HCl (Roxicodone -) 5 mg PO Q4H PRN PRN Reason: PAIN LEVEL 1-5 Last Admin: 11/13/17 22:47 Dose: 5 mg Pantoprazole Sodium (Protonix Iv) 40 mg IVPUSH DAILY [facility] Last Admin: 11/15/17 09:31 Dose: 40 mg - Objective Vital Signs: Vital Signs Temperature 98.1 F 11/16/17 06:45 Pulse Rate 104 H 11/16/17 06:45 Respiratory Rate 20 11/16/17 06:45 Blood Pressure 111/66 11/16/17 06:45 O2 Sat by Pulse Oximetry (%) 97 11/15/17 22:00 Constitutional: Yes: No Distress Eyes: Yes: WNL HENT: Yes: WNL Neck: Yes: WNL Cardiovascular: Yes: WNL Respiratory: Yes: WNL Gastrointestinal: Yes: Distention Genitourinary: Yes: [place] Present Musculoskeletal: Yes: Muscle Weakness Extremities: Yes: Other Edema: Yes Edema: LLE: Trace, RLE: Trace Peripheral Pulses WNL: Yes Integumentary: Yes: Other Wound/Incision: Yes: Clean/Dry Neurological: Yes: Confusion, Other ...Motor Strength: LLE, RLE Psychiatric: Yes: Other Labs: CBC, BMP 11/16/17 06:30 11/15/17 06:00 INR, PTT INR 1.33 (0.83-1.09) H 11/16/17 06:30 Problem List - Problems (1) HEYDI (acute kidney injury) Code(s): N17.9 - ACUTE KIDNEY FAILURE, UNSPECIFIED (2) Adrenal mass Code(s): E27.9 - DISORDER OF ADRENAL GLAND, UNSPECIFIED (3) Hydronephrosis Code(s): N13.30 - UNSPECIFIED HYDRONEPHROSIS (4) Sepsis Code(s): A41.9 - SEPSIS, UNSPECIFIED ORGANISM Qualifiers: Sepsis type: sepsis due to unspecified organism Qualified Code(s): A41.9 - Sepsis, unspecified organism (5) Supratherapeutic INR Code(s): R79.1 - ABNORMAL COAGULATION PROFILE (6) UTI (urinary tract infection) Code(s): N39.0 - URINARY TRACT INFECTION, SITE NOT SPECIFIED Qualifiers: Urinary tract infection type: acute cystitis Hematuria presence: with hematuria Qualified Code(s): N30.01 - Acute cystitis with hematuria (7) Anemia Code(s): D64.9 - ANEMIA, UNSPECIFIED (8) Anxiety Code(s): F41.9 - ANXIETY DISORDER, UNSPECIFIED (9) Bladder cancer Code(s): C67.9 - MALIGNANT NEOPLASM OF BLADDER, UNSPECIFIED (10) 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, managed as type 2 Code(s): E10.9 - TYPE 1 DIABETES MELLITUS WITHOUT COMPLICATIONS (14) Hyperlipidemia Code(s): E78.5 - HYPERLIPIDEMIA, UNSPECIFIED Qualifiers: Hyperlipidemia type: pure hypercholesterolemia Qualified Code(s): E78.00 - Pure hypercholesterolemia, unspecified; E78.0 - Pure hypercholesterolemia (15) Hypertension Code(s): I10 - ESSENTIAL (PRIMARY) HYPERTENSION Qualifiers: Hypertension type: essential hypertension Qualified Code(s): I10 - Essential (primary) hypertension (16) Metastasis Code(s): C79.9 - SECONDARY MALIGNANT NEOPLASM OF UNSPECIFIED SITE (17) Poor appetite Code(s): R63.0 - ANOREXIA (18) S/P coronary artery stent placement Code(s): Z95.5 - PRESENCE OF CORONARY ANGIOPLASTY IMPLANT AND GRAFT Assessment/Plan NEPHROSTOMY TODAY PLATLETS 1 UNIT BEFORE PROCEDURE, 2ND UNIT BEING TRANSPORTED TO [facility]. CHECK LABS PLAVIX/ASA ON HOLD SNF PLACEMENT TOMORROW
[2017-11-16] MEDS: DEXAMETHASONE 4 MG TABLET (FP) PO SCH ×2 (12:11→21:08)
[2017-11-16] MEDS: METOPROLOL TARTRATE 25 MG TABLET (FP) PO SCH ×2 (12:11→21:08)
[2017-11-16] MEDS: PANTOPRAZOLE SODIUM 40 MG VIAL IVPUSH SCH (12:11)
--- NOTE | 2017-11-16 12:18 | PN ---
Progress Note, Physician - Current Medication List Current Medications: Active Medications Aspirin (Ecotrin -) 81 mg PO DAILY [facility] Last Admin: 11/11/17 09:20 Dose: 81 mg Clopidogrel Bisulfate (Plavix -) 75 mg PO DAILY [facility] Last Admin: 11/11/17 09:20 Dose: 75 mg Dexamethasone (Decadron -) 4 mg PO BID [facility] Last Admin: 11/15/17 21:13 Dose: 4 mg Piperacillin Sod/Tazobactam (Sod 3.375 gm/ Dextrose) 50 mls @ 100 mls/hr IVPB Q8H-IV [facility]; Protocol Last Admin: 11/16/17 02:44 Dose: 100 mls/hr Insulin Aspart (Novolog Vial Sliding Scale -) 1 vial SQ ACHS [facility]; Protocol Last Admin: 11/16/17 12:11 Dose: Not Given Metoprolol Tartrate (Lopressor -) 25 mg PO BID [facility] Last Admin: 11/15/17 21:13 Dose: 25 mg Oxycodone HCl (Roxicodone -) 5 mg PO Q4H PRN PRN Reason: PAIN LEVEL 1-5 Last Admin: 11/13/17 22:47 Dose: 5 mg Pantoprazole Sodium (Protonix Iv) 40 mg IVPUSH DAILY [facility] Last Admin: 11/15/17 09:31 Dose: 40 mg - Objective Vital Signs: Vital Signs Temperature 97.7 F 11/16/17 09:00 Pulse Rate 107 H 11/16/17 11:24 Respiratory Rate 16 11/16/17 11:24 Blood Pressure 109/65 11/16/17 11:24 O2 Sat by Pulse Oximetry (%) 100 11/16/17 11:24 Eyes: Yes: WNL, Conjunctiva Clear, EOM Intact HENT: Yes: WNL, Atraumatic, Normocephalic Neck: Yes: WNL, Supple, Trachea Midline Cardiovascular: Yes: WNL, Regular Rate and Rhythm Respiratory: Yes: WNL, Regular, CTA Bilaterally Gastrointestinal: Yes: WNL, Normal Bowel Sounds Genitourinary: Yes: WNL Musculoskeletal: Yes: WNL Extremities: Yes: WNL Edema: No Integumentary: Yes: WNL Neurological: Yes: WNL, Alert, Oriented ...Motor Strength: WNL Psychiatric: Yes: WNL Labs: CBC, BMP 11/16/17 06:30 11/15/17 06:00 INR, PTT INR 1.33 (0.83-1.09) H 11/16/17 06:30 Assessment/Plan - Problems (1) Sepsis Assessment/Plan: remains leukocytotic; likely due to both bacteremia and steroids. On Zosyn--day 7. F/u with ID. Code(s): A41.9 - SEPSIS, UNSPECIFIED ORGANISM Qualifiers: Sepsis type: sepsis due to unspecified organism Qualified Code(s): A41.9 - Sepsis, unspecified organism (2) Anemia Code(s): D64.9 - ANEMIA, UNSPECIFIED (3) Anxiety Code(s): F41.9 - ANXIETY DISORDER, UNSPECIFIED (4) Atrial fibrillation with rapid ventricular response Assessment/Plan: Pt;s HR and BP have been better-controlled. On metoprolol tartrate 25 mg bid; f/u HR and BP. Restart warfarin(INR now < 2); keep INR 2-3. EKG in am. 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 Code(s): C67.9 - MALIGNANT NEOPLASM OF BLADDER, UNSPECIFIED; C78.00 - SECONDARY MALIGNANT NEOPLASM OF UNSPECIFIED LUNG (6) CAD (coronary artery disease) Code(s): I25.10 - ATHSCL HEART DISEASE OF [place] CORONARY ARTERY W/O ANG PCTRS s/p LIDIA mRCA June 2017. cont DAPT Patient is cleared for the procedure Qualifiers: Coronary Disease-Associated Artery/Lesion type: [place] artery [place] vs. transplanted heart: [place] heart Associated angina: without angina Qualified Code(s): I25.10 - Atherosclerotic heart disease of [place] coronary artery without angina pectoris (7) Cardiomyopathy Assessment/Plan: severely reduced LVEF. On metoprolol. Start losartan 25 mg daily. will d/w prognosis if life expectancy is not longer than the 6 months no ICD is indicated. Code(s): I42.9 - CARDIOMYOPATHY, UNSPECIFIED Qualifiers: Cardiomyopathy type: ischemic Qualified Code(s): I25.5 - Ischemic cardiomyopathy (8) Chronic systolic (congestive) heart failure Assessment/Plan: On metoprolol. Start ARB (losartan 25 mg daily). Add aldactone if BP, renal function, and electrolytes allow. F/u BUN/Cr, Is and Os, daily weight, electrolytes. Code(s): I50.22 - CHRONIC SYSTOLIC (CONGESTIVE) HEART FAILURE (9) Hyperlipidemia Code(s): E78.5 - HYPERLIPIDEMIA, UNSPECIFIED Qualifiers: Hyperlipidemia type: pure hypercholesterolemia Qualified Code(s): E78.00 - Pure hypercholesterolemia, unspecified; E78.0 - Pure hypercholesterolemia (10) Hypertension Code(s): I10 - ESSENTIAL (PRIMARY) HYPERTENSION Qualifiers: Hypertension type: essential hypertension Qualified Code(s): I10 - Essential (primary) hypertension (11) S/P coronary artery stent placement Code(s): Z95.5 - PRESENCE OF CORONARY ANGIOPLASTY IMPLANT AND GRAFT (12) Supratherapeutic INR Assessment/Plan: INR now < 2; restart warfarin, and keep INR 2-3. Code(s): R79.1 - ABNORMAL COAGULATION PROFILE (13) Hypokalemia Assessment/Plan: replete K; f/u all electrolytes. Start ARB (losartan 25 mg daily); besides aid in systolic CHF, may help balance K+. Code(s): E87.6 - HYPOKALEMIA
--- NOTE | 2017-11-16 13:50 | PN ---
Progress Note, Physician History of Present Illness: Pt seen and examined at bedside. He had the nephrostomy placed today. - Current Medication List Current Medications: Active Medications Aspirin (Ecotrin -) 81 mg PO DAILY [facility] Last Admin: 11/11/17 09:20 Dose: 81 mg Clopidogrel Bisulfate (Plavix -) 75 mg PO DAILY [facility] Last Admin: 11/11/17 09:20 Dose: 75 mg Dexamethasone (Decadron -) 4 mg PO BID [facility] Last Admin: 11/16/17 12:11 Dose: 4 mg Piperacillin Sod/Tazobactam (Sod 3.375 gm/ Dextrose) 50 mls @ 100 mls/hr IVPB Q8H-IV [facility]; Protocol Last Admin: 11/16/17 12:11 Dose: 100 mls/hr Insulin Aspart (Novolog Vial Sliding Scale -) 1 vial SQ ACHS [facility]; Protocol Last Admin: 11/16/17 12:11 Dose: Not Given Metoprolol Tartrate (Lopressor -) 25 mg PO BID [facility] Last Admin: 11/16/17 12:11 Dose: 25 mg Oxycodone HCl (Roxicodone -) 5 mg PO Q4H PRN PRN Reason: PAIN LEVEL 1-5 Last Admin: 11/13/17 22:47 Dose: 5 mg Pantoprazole Sodium (Protonix Iv) 40 mg IVPUSH DAILY [facility] Last Admin: 11/16/17 12:11 Dose: 40 mg - Objective Vital Signs: Vital Signs Temperature 97.7 F 11/16/17 09:00 Pulse Rate 107 H 11/16/17 11:24 Respiratory Rate 16 11/16/17 11:24 Blood Pressure 109/65 11/16/17 11:24 O2 Sat by Pulse Oximetry (%) 100 11/16/17 11:24 Constitutional: Yes: Calm Eyes: Yes: Conjunctiva Clear HENT: Yes: Atraumatic Neck: Yes: Supple Cardiovascular: Yes: S1, S2 Respiratory: Yes: CTA Bilaterally Gastrointestinal: Yes: Soft Genitourinary: Yes: Other (ileal conduit, right nephrostomy) Musculoskeletal: Yes: WNL Edema: No Neurological: Yes: Oriented Psychiatric: Yes: Oriented Labs: CBC, BMP 11/16/17 06:30 11/15/17 06:00 INR, PTT INR 1.33 (0.83-1.09) H 11/16/17 06:30 Problem List - Problems (1) Hydronephrosis Code(s): N13.30 - UNSPECIFIED HYDRONEPHROSIS (2) Sepsis Code(s): A41.9 - SEPSIS, UNSPECIFIED ORGANISM Qualifiers: Sepsis type: sepsis due to unspecified organism Qualified Code(s): A41.9 - Sepsis, unspecified organism (3) UTI (urinary tract infection) Code(s): N39.0 - URINARY TRACT INFECTION, SITE NOT SPECIFIED Qualifiers: Urinary tract infection type: acute cystitis Hematuria presence: with hematuria Qualified Code(s): N30.01 - Acute cystitis with hematuria (4) Renal dysfunction Code(s): N28.9 - DISORDER OF KIDNEY AND URETER, UNSPECIFIED Assessment/Plan Current Medications Generic Name Dose Route Start Last Admin Trade Name Freq PRN Reason Stop Dose Admin Aspirin 81 mg 11/09/17 10:00 11/11/17 09:20 Ecotrin - PO 81 mg DAILY ANGELITA Administration Clopidogrel Bisulfate 75 mg 11/09/17 10:00 11/11/17 09:20 Plavix - PO 75 mg DAILY ANGELITA Administration Dexamethasone 4 mg 11/12/17 22:00 11/16/17 12:11 Decadron - PO 4 mg BID ANGELITA Administration Piperacillin Sod/Tazobactam 50 mls @ 100 mls/hr 11/09/17 10:00 11/16/17 12:11 Sod 3.375 gm/ Dextrose IVPB 100 mls/hr Q8H-IV ANGELITA Administration Protocol Insulin Aspart 1 vial 11/09/17 07:00 11/16/17 12:11 Novolog Vial Sliding Scale - SQ Not Given ACHS [facility] Protocol Metoprolol Tartrate 25 mg 11/08/17 22:00 11/16/17 12:11 Lopressor - PO 25 mg BID ANGELITA Administration Oxycodone HCl 5 mg 11/12/17 18:16 11/13/17 22:47 Roxicodone - PO 5 mg Q4H PRN Administration PAIN LEVEL 1-5 Pantoprazole Sodium 40 mg 11/09/17 10:00 11/16/17 12:11 Protonix Iv IVPUSH 40 mg DAILY ANGELITA Administration Impression 1. CKD 2. altered mental status 3. a-fib 4. DM 5. HTN 6. hx bladder cancer 7. leukocytosis 8. sepsis 9. hyperkalemia 10. chon Plan - check bmp - nephrostomy care, monitor output - monitor vitals - check potassium and mag - monitor renal function Dr Baltazar
--- NOTE | 2017-11-16 14:50 | PN ---
Progress Note (short form) - Note Progress Note: awake and alert NAD s/p PCN today Vital Signs Period Temp Pulse Resp BP Sys/Maynard Pulse Ox Last 24 Hr 97.7 F-98.6 F 96-110 16-20 100-118/59-73 97-100 cor-rrr lungs clear abd soft,nt +urostom +PCN ext no edema CBC, BMP 11/16/17 06:30 11/15/17 06:00 Microbiology 11/16/17 11:02 Nephrostomy Tube Drainage Gram Stain - Final 11/05/17 08:55 Blood - Peripheral Venous Blood Culture - Final NO GROWTH AFTER 5 DAYS INCUBATION 11/05/17 08:55 Blood - Peripheral Venous Blood Culture - Final NO GROWTH AFTER 5 DAYS INCUBATION 11/05/17 08:55 Urine - Urine - Catheterized Urine Culture - Final Pseudomonas Aeruginosa a/p sepsis- pseudomonas uti day #11 zosyn hydronephrosis- ?stricture- s/p PCN adrenal mass (new)-on steroids metastatic bladder cancer CAD- s/p stent leukocytosis most likely infection and steroids if cultures are negative in am, will d/c zosyn Problem List - Problems (1) Sepsis Code(s): A41.9 - SEPSIS, UNSPECIFIED ORGANISM Qualifiers: Sepsis type: sepsis due to unspecified organism Qualified Code(s): A41.9 - Sepsis, unspecified organism (2) Hydronephrosis Code(s): N13.30 - UNSPECIFIED HYDRONEPHROSIS (3) UTI (urinary tract infection) Code(s): N39.0 - URINARY TRACT INFECTION, SITE NOT SPECIFIED Qualifiers: Urinary tract infection type: acute cystitis Hematuria presence: with hematuria Qualified Code(s): N30.01 - Acute cystitis with hematuria (4) Supratherapeutic INR Code(s): R79.1 - ABNORMAL COAGULATION PROFILE (5) 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
--- NOTE | 2017-11-16 15:04 | PN ---
Physical Exam: SUBJECTIVE: Patient seen and examined at bedside. No new complaints. S/p nephrostomy placement today. Tolerated procedure well. OBJECTIVE: Vital Signs Period Temp Pulse Resp BP Sys/Maynard Pulse Ox Last 24 Hr 97.7 F-98.6 F 96-110 16-20 100-118/59-73 97-100 GENERAL: awake, NAD HEAD: Normal with no signs of trauma. EYES: conjunctiva clear. ENT: moist mucous membranes. LUNGS: CTAB, no wheezes, no crackles, no accessory muscle use. HEART: RRR, S1, S2 without murmur, rub or gallop. ABDOMEN: Soft, nontender, nondistended, Ileal conduit and right nephrostomy EXTREMITIES: 2+ pulses, warm, well-perfused, no edema. Laboratory Results - last 24 hr 11/15/17 11/15/17 11/15/17 06:00 17:24 21:09 WBC RBC Hgb Hct MCV MCH MCHC RDW Plt Count MPV PT with INR INR POC Glucometer 131 123 Cortisol AM Sample 5.8 11/16/17 11/16/17 11/16/17 05:40 06:30 06:30 WBC 21.9 H RBC 4.55 Hgb 12.1 Hct 38.2 MCV 84.1 MCH 26.6 MCHC 31.6 L RDW 17.6 H Plt Count 260 D MPV 9.4 PT with INR 15.70 H INR 1.33 H POC Glucometer 131 Cortisol AM Sample 11/16/17 12:10 WBC RBC Hgb Hct MCV MCH MCHC RDW Plt Count MPV PT with INR INR POC Glucometer 110 Cortisol AM Sample Active Medications Generic Name Dose Route Start Last Admin Trade Name Freq PRN Reason Stop Dose Admin Aspirin 81 mg 11/09/17 10:00 11/11/17 09:20 Ecotrin - PO 81 mg DAILY ANGELITA Administration Clopidogrel Bisulfate 75 mg 11/09/17 10:00 11/11/17 09:20 Plavix - PO 75 mg DAILY ANGELITA Administration Dexamethasone 4 mg 11/12/17 22:00 11/16/17 12:11 Decadron - PO 4 mg BID ANGELITA Administration Piperacillin Sod/Tazobactam 50 mls @ 100 mls/hr 11/09/17 10:00 11/16/17 12:11 Sod 3.375 gm/ Dextrose IVPB 100 mls/hr Q8H-IV ANGELITA Administration Protocol Insulin Aspart 1 vial 11/09/17 07:00 11/16/17 12:11 Novolog Vial Sliding Scale - SQ Not Given ACHS [facility] Protocol Metoprolol Tartrate 25 mg 11/08/17 22:00 11/16/17 12:11 Lopressor - PO 25 mg BID ANGELITA Administration Oxycodone HCl 5 mg 11/12/17 18:16 11/13/17 22:47 Roxicodone - PO 5 mg Q4H PRN Administration PAIN LEVEL 1-5 Pantoprazole Sodium 40 mg 11/09/17 10:00 11/16/17 12:11 Protonix Iv IVPUSH 40 mg DAILY ANGELITA Administration ASSESSMENT/PLAN: 67 YOM with h/o bladder CA with mets to lung, liver, and bone , s/p ileal conduit, A-fib (on warfarin, Plavix, and baby ASA), CHF, CAD, HTN, GERD, and depression who was BIBEMS from [facility] (where he was recently admitted) who was found by care facility staff this morning half-off his bed and complaining of mid-back pain. He was readmitted for urospesis Problem List - Problems (1) 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 Assessment/Plan: poor peformance status * Family wishes to get him back to [facility] to ulitmately go home to [place] * ongoing discussions regarding goals of care. (2) Renal insufficiency Assessment/Plan: s/p nephrostomy tube today. Code(s): N28.9 - DISORDER OF KIDNEY AND URETER, UNSPECIFIED (3) Sepsis due to urinary tract infection Visit type - Emergency Visit Emergency Visit: Yes ED Registration Date: 11/05/17 Care time: The patient presented to the Emergency Department on the above date and was hospitalized for further evaluation of their emergent condition. - New Patient This patient is new to me today: Yes Date on this admission: 11/19/17 - Critical Care Critical Care patient: No - Discharge Referral Referred to [facility] Med P.C.: No
--- NOTE | 2017-11-16 22:52 | PN ---
Progress Note (short form) - Note Progress Note: sp nephrostomy tube insertion,alert comfortable on po dexamethason for adrenal support high wbc count Current Active Problems HEYDI (acute kidney injury) (Acute) Adrenal mass (Acute) Hydronephrosis (Acute) Hypokalemia (Acute) Sepsis (Acute) Supratherapeutic INR (Acute) UTI (urinary tract infection) (Acute) Abnormal Lab Results 11/16/17 11/16/17 06:30 06:30 WBC 21.9 H MCHC 31.6 L RDW 17.6 H PT with INR 15.70 H INR 1.33 H Laboratory Results - last 24 hr 11/15/17 11/16/17 11/16/17 06:00 05:40 06:30 WBC 21.9 H RBC 4.55 Hgb 12.1 Hct 38.2 MCV 84.1 MCH 26.6 MCHC 31.6 L RDW 17.6 H Plt Count 260 D MPV 9.4 PT with INR INR POC Glucometer 131 Cortisol AM Sample 5.8 11/16/17 11/16/17 11/16/17 06:30 12:10 17:11 WBC RBC Hgb Hct MCV MCH MCHC RDW Plt Count MPV PT with INR 15.70 H INR 1.33 H POC Glucometer 110 144 Cortisol AM Sample 11/16/17 21:10 WBC RBC Hgb Hct MCV MCH MCHC RDW Plt Count MPV PT with INR INR POC Glucometer 181 Cortisol AM Sample plan: cosyntropin stim test to evaluate adrenal reserve cortisol level ordered Problem List - Problems (1) HEYDI (acute kidney injury) Code(s): N17.9 - ACUTE KIDNEY FAILURE, UNSPECIFIED (2) Adrenal mass Code(s): E27.9 - DISORDER OF ADRENAL GLAND, UNSPECIFIED (3) Hydronephrosis Code(s): N13.30 - UNSPECIFIED HYDRONEPHROSIS (4) Sepsis Code(s): A41.9 - SEPSIS, UNSPECIFIED ORGANISM Qualifiers: Sepsis type: sepsis due to unspecified organism Qualified Code(s): A41.9 - Sepsis, unspecified organism (5) Supratherapeutic INR Code(s): R79.1 - ABNORMAL COAGULATION PROFILE (6) Anemia Code(s): D64.9 - ANEMIA, UNSPECIFIED (7) Anxiety Code(s): F41.9 - ANXIETY DISORDER, UNSPECIFIED
[2017-11-17] MEDS ORDERED: PIPERACILLIN/TAZOBACTAM 3.375 GM VIAL IVPB ONE ×3 (00:58→17:45)
[2017-11-17] MEDS ORDERED: DEXTROSE 5%-WATER - 50 ML IVPB ONE ×3 (00:58→17:45)
[2017-11-17] MEDS: PIPERACILLIN/TAZOB 3.375 GM 3.375 GM in DEXTROSE 5%-WATER - 50 ML IVPB SCH ×2 (01:19→09:41)
[2017-11-17] MEDS ORDERED: COSYNTROPIN 0.25 MG VIAL IVPUSH ONE (06:00)
[2017-11-17] MEDS: INSULIN SLIDING SCALE (NOVOLOG) 1 VIAL SQ SCH ×4 (06:14→21:21)
[2017-11-17 07:16] LABS: HEMATOCRIT 32.7 % (35.4-49); HEMOGLOBIN 10.4 GM/dL (11.7-16.9); MCH 26.5 pg (25.7-33.7); MCHC 31.8 g/dl (32.0-35.9); MEAN CELL VOLUME 83.2 fl (80-96); MEAN PLT VOLUME 8.6 fl (7.5-11.1); PLATELET COUNT 275 K/MM3 (134-434); RBC 3.93 M/mm3 (4.00-5.60); RDW 17.6 % (11.9-15.9); WHITE BLOOD COUNT 18.9 K/mm3 (4.0-10.0)
[2017-11-17 07:47] LABS: ALBUMIN 2.1 g/dl (3.4-5.0); ALK PHOS 262 U/L (45-117); ANION GAP 4 MMOL/L (8-16); BILIRUBIN,TOTAL 0.7 mg/dL (0.2-1); BLOOD UREA NITROGEN 26 mg/dL (7-18); CALCIUM 9.1 mg/dL (8.5-10.1); CHLORIDE 105 mmol/L (98-107); CO2 25 mmol/L (21-32); GLUCOSE,RANDOM 116 mg/dL (74-106); MAGNESIUM 1.8 mg/dL (1.8-2.4); POTASSIUM 4.1 mmol/L (3.5-5.1); SGOT/AST 22 U/L (15-37); SGPT/ALT 42 U/L (13-61); SODIUM 134 mmol/L (136-145); TOT PROT 5.9 g/dl (6.4-8.2)
[2017-11-17] MEDS: METOPROLOL TARTRATE 25 MG TABLET (FP) PO SCH ×3 (08:46→21:20)
[2017-11-17] MEDS: DEXAMETHASONE 4 MG TABLET (FP) PO SCH ×3 (08:47→21:20)
[2017-11-17] MEDS ORDERED: SODIUM CHLORIDE 1,000 ML IV SCH (09:15)
[2017-11-17] MEDS ORDERED: SODIUM CHLORIDE 250 ML IV STA (09:15)
--- NOTE | 2017-11-17 09:15 | PN ---
Progress Note, Physician Chief Complaint: TACHYCARDIA 130'S DENIES CHEST PAIN OR SOB POSTOP DAY #1 NEPHROSTOMY PLACEMENT - Current Medication List Current Medications: Active Medications Aspirin (Ecotrin -) 81 mg PO DAILY [facility] Last Admin: 11/11/17 09:20 Dose: 81 mg Clopidogrel Bisulfate (Plavix -) 75 mg PO DAILY [facility] Last Admin: 11/11/17 09:20 Dose: 75 mg Dexamethasone (Decadron -) 4 mg PO BID [facility] Last Admin: 11/17/17 08:47 Dose: 4 mg Piperacillin Sod/Tazobactam (Sod 3.375 gm/ Dextrose) 50 mls @ 100 mls/hr IVPB Q8H-IV [facility]; Protocol Last Admin: 11/17/17 01:19 Dose: 100 mls/hr Insulin Aspart (Novolog Vial Sliding Scale -) 1 vial SQ ACHS [facility]; Protocol Last Admin: 11/17/17 06:14 Dose: Not Given Metoprolol Tartrate (Lopressor -) 25 mg PO BID [facility] Last Admin: 11/17/17 08:46 Dose: 25 mg Pantoprazole Sodium (Protonix Iv) 40 mg IVPUSH DAILY [facility] Last Admin: 11/16/17 12:11 Dose: 40 mg - Objective Vital Signs: Vital Signs Temperature 98.4 F 11/17/17 08:51 Pulse Rate 134 H 11/17/17 08:51 Respiratory Rate 20 11/17/17 08:51 Blood Pressure 121/77 11/17/17 08:51 O2 Sat by Pulse Oximetry (%) 100 11/16/17 20:24 Constitutional: Yes: Mild Distress Eyes: Yes: WNL HENT: Yes: WNL Neck: Yes: WNL Cardiovascular: Yes: Tachycardia Respiratory: Yes: Diminished, On Nasal O2 Gastrointestinal: Yes: Soft, Distention Genitourinary: Yes: Other Musculoskeletal: Yes: Muscle Weakness Extremities: Yes: Other Edema: No Peripheral Pulses WNL: Yes Integumentary: Yes: WNL Wound/Incision: Yes: Dressing Dry and Intact Neurological: Yes: Pre-Existing Deficit ...Motor Strength: LLE, RLE Psychiatric: Yes: Other Labs: CBC, BMP 11/17/17 06:45 11/17/17 06:00 INR, PTT INR 1.33 (0.83-1.09) H 11/16/17 06:30 Problem List - Problems (1) HEYDI (acute kidney injury) Code(s): N17.9 - ACUTE KIDNEY FAILURE, UNSPECIFIED (2) Adrenal mass Code(s): E27.9 - DISORDER OF ADRENAL GLAND, UNSPECIFIED (3) Hydronephrosis Code(s): N13.30 - UNSPECIFIED HYDRONEPHROSIS (4) Sepsis Code(s): A41.9 - SEPSIS, UNSPECIFIED ORGANISM Qualifiers: Sepsis type: sepsis due to unspecified organism Qualified Code(s): A41.9 - Sepsis, unspecified organism (5) Supratherapeutic INR Code(s): R79.1 - ABNORMAL COAGULATION PROFILE (6) UTI (urinary tract infection) Code(s): N39.0 - URINARY TRACT INFECTION, SITE NOT SPECIFIED Qualifiers: Urinary tract infection type: acute cystitis Hematuria presence: with hematuria Qualified Code(s): N30.01 - Acute cystitis with hematuria (7) Anemia Code(s): D64.9 - ANEMIA, UNSPECIFIED (8) Anxiety Code(s): F41.9 - ANXIETY DISORDER, UNSPECIFIED (9) Bladder cancer Code(s): C67.9 - MALIGNANT NEOPLASM OF BLADDER, UNSPECIFIED (10) 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, managed as type 2 Code(s): E10.9 - TYPE 1 DIABETES MELLITUS WITHOUT COMPLICATIONS (14) Hyperlipidemia Code(s): E78.5 - HYPERLIPIDEMIA, UNSPECIFIED Qualifiers: Hyperlipidemia type: pure hypercholesterolemia Qualified Code(s): E78.00 - Pure hypercholesterolemia, unspecified; E78.0 - Pure hypercholesterolemia (15) Hypertension Code(s): I10 - ESSENTIAL (PRIMARY) HYPERTENSION Qualifiers: Hypertension type: essential hypertension Qualified Code(s): I10 - Essential (primary) hypertension (16) Metastasis Code(s): C79.9 - SECONDARY MALIGNANT NEOPLASM OF UNSPECIFIED SITE (17) Poor appetite Code(s): R63.0 - ANOREXIA (18) S/P coronary artery stent placement Code(s): Z95.5 - PRESENCE OF CORONARY ANGIOPLASTY IMPLANT AND GRAFT (19) Tachycardia Code(s): R00.0 - TACHYCARDIA, UNSPECIFIED Assessment/Plan EKG/CXR/ABG DOPPLER LEGS R/O DVT CHECK LABS PULMONARY EVAL R/O PULM EMBOLISM RESTART PLAVIX/ASA ON DVT PROPHYLAXIS WITH SEQUENTIALS METASTATIC RETROPERITONEAL CANCER
[2017-11-17] MEDS: CLOPIDOGREL BISULFATE 75 MG TABLET (FP) PO SCH ×2 (09:40→09:46)
[2017-11-17] MEDS: ASPIRIN COATED 81 MG TABLET.EC PO SCH ×2 (09:40→09:47)
[2017-11-17] MEDS: PANTOPRAZOLE SODIUM 40 MG VIAL IVPUSH SCH (09:41)
--- NOTE | 2017-11-17 09:43 | PN ---
Progress Note (short form) - Note Progress Note: TRANSFERRING TELEMETRY CARDIZEM IV 5MG X 1 NO AC DUE TO NEPHROSTOMY TUBE POD #1 Problem List - Problems (1) HEYDI (acute kidney injury) Code(s): N17.9 - ACUTE KIDNEY FAILURE, UNSPECIFIED (2) Adrenal mass Code(s): E27.9 - DISORDER OF ADRENAL GLAND, UNSPECIFIED (3) Hydronephrosis Code(s): N13.30 - UNSPECIFIED HYDRONEPHROSIS (4) Sepsis Code(s): A41.9 - SEPSIS, UNSPECIFIED ORGANISM Qualifiers: Sepsis type: sepsis due to unspecified organism Qualified Code(s): A41.9 - Sepsis, unspecified organism (5) Supratherapeutic INR Code(s): R79.1 - ABNORMAL COAGULATION PROFILE (6) UTI (urinary tract infection) Code(s): N39.0 - URINARY TRACT INFECTION, SITE NOT SPECIFIED Qualifiers: Urinary tract infection type: acute cystitis Hematuria presence: with hematuria Qualified Code(s): N30.01 - Acute cystitis with hematuria (7) Anemia Code(s): D64.9 - ANEMIA, UNSPECIFIED (8) Anxiety Code(s): F41.9 - ANXIETY DISORDER, UNSPECIFIED (9) Bladder cancer Code(s): C67.9 - MALIGNANT NEOPLASM OF BLADDER, UNSPECIFIED (10) 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 artery [place] vs. transplanted heart: [place] heart Associated angina: without angina Qualified Code(s): I25.10 - Atherosclerotic heart disease of 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, managed as type 2 Code(s): E10.9 - TYPE 1 DIABETES MELLITUS WITHOUT COMPLICATIONS (14) Hyperlipidemia Code(s): E78.5 - HYPERLIPIDEMIA, UNSPECIFIED Qualifiers: Hyperlipidemia type: pure hypercholesterolemia Qualified Code(s): E78.00 - Pure hypercholesterolemia, unspecified; E78.0 - Pure hypercholesterolemia (15) Hypertension Code(s): I10 - ESSENTIAL (PRIMARY) HYPERTENSION Qualifiers: Hypertension type: essential hypertension Qualified Code(s): I10 - Essential (primary) hypertension (16) Metastasis Code(s): C79.9 - SECONDARY MALIGNANT NEOPLASM OF UNSPECIFIED SITE (17) Poor appetite Code(s): R63.0 - ANOREXIA (18) S/P coronary artery stent placement Code(s): Z95.5 - PRESENCE OF CORONARY ANGIOPLASTY IMPLANT AND GRAFT (19) Tachycardia Code(s): R00.0 - TACHYCARDIA, UNSPECIFIED
--- NOTE | 2017-11-17 10:52 | PN ---
Progress Note (short form) - Note Progress Note: PULMONARY Called back to see patient after pt found to be in rapid atrial flutter. Had percutaneous nephrostomy placed yesterday. Pt denies shortness of breath, chest pain or palpitations. No leg pain or swelling. His anticoagulation had been on hold due to the nephrostomy placement. Vital Signs Period Temp Pulse Resp BP Sys/Maynard Pulse Ox Last 24 Hr 98.2 F-98.4 F 80-134 16-20 101-126/57-77 100-100 Gen: NAD at rest Heart: irregular Lung: decreased breath sounds at the bases Abd: soft, nontender Ext: no edema, no calf tenderness CBC, BMP 11/17/17 06:45 11/17/17 06:00 Active Medications Aspirin (Ecotrin -) 81 mg PO DAILY [facility] Last Admin: 11/17/17 09:47 Dose: Not Given Clopidogrel Bisulfate (Plavix -) 75 mg PO DAILY [facility] Last Admin: 11/17/17 09:46 Dose: Not Given Dexamethasone (Decadron -) 4 mg PO BID [facility] Last Admin: 11/17/17 09:41 Dose: Not Given Diltiazem HCl (Cardizem Injection -) 5 mg IVPB ONCE ONE Stop: 11/17/17 11:01 Piperacillin Sod/Tazobactam (Sod 3.375 gm/ Dextrose) 50 mls @ 100 mls/hr IVPB Q8H-IV [facility]; Protocol Last Admin: 11/17/17 09:41 Dose: 100 mls/hr Sodium Chloride (Normal Saline -) 1,000 mls @ 83 mls/hr IV ASDIR [facility] Last Admin: 11/17/17 09:41 Dose: 83 mls/hr Insulin Aspart (Novolog Vial Sliding Scale -) 1 vial SQ ACHS [facility]; Protocol Last Admin: 11/17/17 06:14 Dose: Not Given Metoprolol Tartrate (Lopressor -) 25 mg PO BID [facility] Last Admin: 11/17/17 09:41 Dose: Not Given Pantoprazole Sodium (Protonix Iv) 40 mg IVPUSH DAILY [facility] Last Admin: 11/17/17 09:41 Dose: 40 mg A/P UTI Septic Shock improved h/o Bladder Ca s/p Cystectomy Acute on Chronic Renal Failure improving Adrenal Insufficiency Atrial Fibrillation with RVR HTN DM - agree with telemetry transfer, LE dopplers - rate control - would resume anticoagulation - would not pursue CTA as pt requires anticoagulation for atrial fibrillation anyway and new PE diagnosis 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
[2017-11-17] MEDS ORDERED: dilTIAZem HCL 50 MG/10 ML - 10 ML VIAL IVPB ONE (11:00)
--- NOTE | 2017-11-17 11:45 | EKG ---
Test Reason : Blood Pressure : / mmHG Vent. Rate : 133 BPM Atrial Rate : 337 BPM P-R Int : 000 ms QRS Dur : 082 ms QT Int : 310 ms P-R-T Axes : 000 -13 236 degrees QTc Int : 461 ms ATRIAL FLUTTER WITH VARIABLE A-V BLOCK WITH PREMATURE VENTRICULAR OR ABERRANTLY CONDUCTED COMPLEXES NONSPECIFIC ST AND T WAVE ABNORMALITY ABNORMAL ECG WHEN COMPARED WITH ECG OF 13-NOV-2017 08:16, ATRIAL FLUTTER HAS REPLACED SINUS RHYTHM VENT. RATE HAS INCREASED BY 51 BPM Confirmed by Mahesh Melendez MD ([id number]) on 11/17/2017 11:45:39 AM Referred By: Nuria BAUM Confirmed By:Mahesh Melendez MD
--- NOTE | 2017-11-17 12:11 | PN ---
Progress Note, Physician Chief Complaint: resting in bed new onset arrythmia noted History of Present Illness: atrial flutter arrythmia,no cp,no nausea or weakness - Current Medication List Current Medications: Active Medications Aspirin (Ecotrin -) 81 mg PO DAILY [facility] Last Admin: 11/17/17 09:47 Dose: Not Given Clopidogrel Bisulfate (Plavix -) 75 mg PO DAILY [facility] Last Admin: 11/17/17 09:46 Dose: Not Given Dexamethasone (Decadron -) 4 mg PO BID [facility] Last Admin: 11/17/17 09:41 Dose: Not Given Piperacillin Sod/Tazobactam (Sod 3.375 gm/ Dextrose) 50 mls @ 100 mls/hr IVPB Q8H-IV [facility]; Protocol Last Admin: 11/17/17 09:41 Dose: 100 mls/hr Sodium Chloride (Normal Saline -) 1,000 mls @ 83 mls/hr IV ASDIR [facility] Last Admin: 11/17/17 09:41 Dose: 83 mls/hr Insulin Aspart (Novolog Vial Sliding Scale -) 1 vial SQ ACHS [facility]; Protocol Last Admin: 11/17/17 11:01 Dose: Not Given Metoprolol Tartrate (Lopressor -) 25 mg PO BID [facility] Last Admin: 11/17/17 09:41 Dose: Not Given Pantoprazole Sodium (Protonix Iv) 40 mg IVPUSH DAILY [facility] Last Admin: 11/17/17 09:41 Dose: 40 mg - Objective Vital Signs: Vital Signs Temperature 98.4 F 11/17/17 08:51 Pulse Rate 78 11/17/17 12:02 Respiratory Rate 20 11/17/17 12:02 Blood Pressure 127/73 11/17/17 12:02 O2 Sat by Pulse Oximetry (%) 99 11/17/17 09:00 Constitutional: Yes: Well Nourished Eyes: Yes: EOM Intact HENT: Yes: Normocephalic Neck: Yes: Trachea Midline Cardiovascular: Yes: Tachycardia, Pulse Irregular, S2 Respiratory: Yes: Tachypnea Gastrointestinal: Yes: Normal Bowel Sounds ...Rectal Exam: Yes: Deferred Genitourinary: Yes: WNL Musculoskeletal: Yes: Muscle Weakness Edema: No Neurological: Yes: Alert Labs: CBC, BMP 11/17/17 06:45 11/17/17 06:00 INR, PTT INR 1.33 (0.83-1.09) H 11/16/17 06:30 Problem List - Problems (1) HEYDI (acute kidney injury) Code(s): N17.9 - ACUTE KIDNEY FAILURE, UNSPECIFIED (2) Adrenal mass Code(s): E27.9 - DISORDER OF ADRENAL GLAND, UNSPECIFIED (3) Hydronephrosis Code(s): N13.30 - UNSPECIFIED HYDRONEPHROSIS (4) Sepsis Code(s): A41.9 - SEPSIS, UNSPECIFIED ORGANISM Qualifiers: Sepsis type: sepsis due to unspecified organism Qualified Code(s): A41.9 - Sepsis, unspecified organism (5) Supratherapeutic INR Code(s): R79.1 - ABNORMAL COAGULATION PROFILE (6) Anemia Code(s): D64.9 - ANEMIA, UNSPECIFIED (7) Anxiety Code(s): F41.9 - ANXIETY DISORDER, UNSPECIFIED Assessment/Plan Current Active Problems HEYDI (acute kidney injury) (Acute) Adrenal mass (Acute) Hydronephrosis (Acute) Hypokalemia (Acute) Sepsis (Acute) Supratherapeutic INR (Acute) Tachycardia (Acute) UTI (urinary tract infection) (Acute) atrial flutter arrythmia Abnormal Lab Results 11/17/17 11/17/17 06:00 06:45 WBC 18.9 H RBC 3.93 L Hgb 10.4 L Hct 32.7 L MCHC 31.8 L RDW 17.6 H Sodium 134 L Anion Gap 4 L BUN 26 H Random Glucose 116 H Alkaline Phosphatase 262 H Total Protein 5.9 L Albumin 2.1 L Laboratory Results - last 24 hr 11/14/17 11/15/17 11/16/17 15:40 06:00 12:10 WBC RBC Hgb Hct MCV MCH MCHC RDW Plt Count MPV Sodium Potassium Chloride Carbon Dioxide Anion Gap BUN Creatinine Creat Clearance w eGFR POC Glucometer 110 Random Glucose Calcium Magnesium Total Bilirubin AST ALT Alkaline Phosphatase Total Protein Albumin Cortisol AM Sample 5.8 Cortisol PM Sample 7.3 11/16/17 11/16/17 11/17/17 17:11 21:10 05:23 WBC RBC Hgb Hct MCV MCH MCHC RDW Plt Count MPV Sodium Potassium Chloride Carbon Dioxide Anion Gap BUN Creatinine Creat Clearance w eGFR POC Glucometer 144 181 135 Random Glucose Calcium Magnesium Total Bilirubin AST ALT Alkaline Phosphatase Total Protein Albumin Cortisol AM Sample Cortisol PM Sample 11/17/17 11/17/17 11/17/17 06:00 06:45 10:27 WBC 18.9 H RBC 3.93 L Hgb 10.4 L Hct 32.7 L MCV 83.2 MCH 26.5 MCHC 31.8 L RDW 17.6 H Plt Count 275 MPV 8.6 Sodium 134 L Potassium 4.1 Chloride 105 Carbon Dioxide 25 Anion Gap 4 L BUN 26 H Creatinine 1.0 Creat Clearance w eGFR > 60 POC Glucometer 127 Random Glucose 116 H Calcium 9.1 Magnesium 1.8 Total Bilirubin 0.7 AST 22 ALT 42 Alkaline Phosphatase 262 H Total Protein 5.9 L Albumin 2.1 L Cortisol AM Sample Cortisol PM Sample plan: cosyntropin stim test adrenal support
[2017-11-17 13:02] LABS: ARTERIAL BLD GAS O2 SATURATION 97.4 % (90-98.9); ARTERIAL BLOOD GAS BASE EXCESS -1.9 meq/l (-2-2); ARTERIAL BLOOD GAS PCO2 29.6 mmHg (35-45); ARTERIAL BLOOD GAS PO2 91.7 mmHg (80-100); ARTERIAL BLOOD GAS pH 7.46 (7.35-7.45)
[2017-11-17 13:05] LABS: ALLENS TEST POSITIVE
--- NOTE | 2017-11-17 13:19 | PN ---
Progress Note, Physician Chief Complaint: A&O; no chest pain,palpitations, or dyspnea. 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 As per EMS the patients systolic was noted to be in the 60s and they placed a PIV and started a liter of NS prior to arrival in the emergency department. The patient denies chest pain, shortness of breath, headache and dizziness. Denies fever, chills, nausea, vomit, diarrhea and constipation. Denies dysuria, frequency, urgency and hematuria. - Current Medication List Current Medications: Active Medications Aspirin (Ecotrin -) 81 mg PO DAILY [facility] Last Admin: 11/17/17 09:47 Dose: Not Given Clopidogrel Bisulfate (Plavix -) 75 mg PO DAILY [facility] Last Admin: 11/17/17 09:46 Dose: Not Given Dexamethasone (Decadron -) 4 mg PO BID [facility] Last Admin: 11/17/17 09:41 Dose: Not Given Piperacillin Sod/Tazobactam (Sod 3.375 gm/ Dextrose) 50 mls @ 100 mls/hr IVPB Q8H-IV [facility]; Protocol Last Admin: 11/17/17 09:41 Dose: 100 mls/hr Sodium Chloride (Normal Saline -) 1,000 mls @ 83 mls/hr IV ASDIR [facility] Last Admin: 11/17/17 09:41 Dose: 83 mls/hr Insulin Aspart (Novolog Vial Sliding Scale -) 1 vial SQ ACHS [facility]; Protocol Last Admin: 11/17/17 11:01 Dose: Not Given Metoprolol Tartrate (Lopressor -) 25 mg PO BID [facility] Last Admin: 11/17/17 09:41 Dose: Not Given Pantoprazole Sodium (Protonix Iv) 40 mg IVPUSH DAILY [facility] Last Admin: 11/17/17 09:41 Dose: 40 mg - Objective Vital Signs: Vital Signs Temperature 98.4 F 11/17/17 08:51 Pulse Rate 78 11/17/17 12:02 Respiratory Rate 20 11/17/17 12:02 Blood Pressure 127/73 11/17/17 12:02 O2 Sat by Pulse Oximetry (%) 99 11/17/17 09:00 Constitutional: Yes: Calm Eyes: Yes: WNL HENT: Yes: WNL Neck: Yes: WNL Cardiovascular: Yes: Tachycardia, Pulse Irregular, S1 (varies in intensity), S2 Respiratory: Yes: Regular Gastrointestinal: Yes: Soft ...Rectal Exam: Yes: Deferred Genitourinary: Yes: Hematuria, Other (percutaneous nephrostomy tube placed 11/16). No: Anuria Musculoskeletal: Yes: Muscle Weakness Extremities: Yes: Cool Edema: No Peripheral Pulses WNL: Yes Integumentary: Yes: Incision Wound/Incision: Yes: Draining Neurological: Yes: Alert, Weakness Psychiatric: Yes: Alert Labs: CBC, BMP 11/17/17 06:45 11/17/17 06:00 INR, PTT INR 1.33 (0.83-1.09) H 11/16/17 06:30 Abnormal Lab Results 11/17/17 11/17/17 11/17/17 06:00 06:45 12:59 WBC 18.9 H RBC 3.93 L Hgb 10.4 L Hct 32.7 L MCHC 31.8 L RDW 17.6 H ABG pH 7.46 H ABG pCO2 at Pt Temp 29.6 L ABG HCO3 20.7 L Sodium 134 L Anion Gap 4 L BUN 26 H Random Glucose 116 H Alkaline Phosphatase 262 H Total Protein 5.9 L Albumin 2.1 L - ....Imaging EKG: Image Reviewed (atrial flutter with variable AV block) Problem List - Problems (1) Sepsis Assessment/Plan: remains leukocytotic; likely due to both bacteremia and steroids. On antibiotics per ID. Code(s): A41.9 - SEPSIS, UNSPECIFIED ORGANISM Qualifiers: Sepsis type: sepsis due to unspecified organism Qualified Code(s): A41.9 - Sepsis, unspecified organism (2) Anemia Assessment/Plan: f/u Hb (12.1-->10.4 over the past 24 hours); post percutaneous nephrostomy 11/16. +hematuria. Recommend restarting anticoagulation (IV heparin until warfarin-->INR 2-3) as soon as possible; INR has been subtherapeutic since 11/11/2017, raising the risk of embolic CVA. Code(s): D64.9 - ANEMIA, UNSPECIFIED (3) Anxiety Code(s): F41.9 - ANXIETY DISORDER, UNSPECIFIED (4) Atrial fibrillation with rapid ventricular response Assessment/Plan: Noted to be in atrial flutter today, with variable AV block and VR 110-140 bpm. Agree with transfer to telemtry. On metoprolol tartrate for HR control;increase as necessary and as BP allows. If HR remains elevated, start diltiazem as well. Ideallyi, pt should be on an anticoagulant (warfarin was discontinued when INR noted supratherapeutic initially; it has been <2 since 11/11/2017), but this needs to be cleared by , in light of recent procedure and ongoing hematuria. He is also on ASA and clopidogrel due to arterial stent. F/u electrolytes in am (ordered). 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 f/u with oncologist, . Code(s): C67.9 - MALIGNANT NEOPLASM OF BLADDER, UNSPECIFIED; C78.00 - SECONDARY MALIGNANT NEOPLASM OF UNSPECIFIED LUNG (6) CAD (coronary artery disease) Code(s): I25.10 - ATHSCL HEART DISEASE OF [place] CORONARY ARTERY W/O ANG PCTRS Qualifiers: Coronary Disease-Associated Artery/Lesion type: [place] artery [place] vs. transplanted heart: [place] heart Associated angina: without angina Qualified Code(s): I25.10 - Atherosclerotic heart disease of [place] coronary artery without angina pectoris (7) Cardiomyopathy Assessment/Plan: severely reduced LVEF. On metoprolol. Start losartan 25 mg daily. Code(s): I42.9 - CARDIOMYOPATHY, UNSPECIFIED Qualifiers: Cardiomyopathy type: ischemic Qualified Code(s): I25.5 - Ischemic cardiomyopathy (8) Chronic systolic (congestive) heart failure Assessment/Plan: On metoprolol for HR control (AF) and systolic CHF. Start ARB (losartan 25 mg daily). Add aldactone later if BP, renal function, and electrolytes allow. F/u BUN/Cr, Is and Os, daily weight, electrolytes. Code(s): I50.22 - CHRONIC SYSTOLIC (CONGESTIVE) HEART FAILURE (9) Hyperlipidemia Code(s): E78.5 - HYPERLIPIDEMIA, UNSPECIFIED Qualifiers: Hyperlipidemia type: pure hypercholesterolemia Qualified Code(s): E78.00 - Pure hypercholesterolemia, unspecified; E78.0 - Pure hypercholesterolemia (10) Hypertension Code(s): I10 - ESSENTIAL (PRIMARY) HYPERTENSION Qualifiers: Hypertension type: essential hypertension Qualified Code(s): I10 - Essential (primary) hypertension (11) S/P coronary artery stent placement Code(s): Z95.5 - PRESENCE OF CORONARY ANGIOPLASTY IMPLANT AND GRAFT (12) Supratherapeutic INR Assessment/Plan: INR now < 2; restart warfarin, and keep INR 2-3. Code(s): R79.1 - ABNORMAL COAGULATION PROFILE (13) Hypokalemia Assessment/Plan: replete K; f/u all electrolytes. Start ARB (losartan 25 mg daily); besides aid in systolic CHF, may help balance K+. Code(s): E87.6 - HYPOKALEMIA
[2017-11-17] MEDS ORDERED: dilTIAZem HCL 25 MG/5 ML - 5 ML VIAL IVPUSH PRN (16:54)
[2017-11-17] MEDS ORDERED: METOPROLOL TARTRATE 25 MG TABLET (FP) PO ONE (17:00)
--- NOTE | 2017-11-17 17:57 | PN ---
Progress Note (short form) - Note Progress Note: awake and alert NAD s/p PCN transferred to telemetry for aflutter/afib no complaints Vital Signs Period Temp Pulse Resp BP Sys/Maynard Pulse Ox Last 24 Hr 97.8 F-98.4 F 78-134 18-22 108-146/57-95 99-100 cor-rrr lungs clear abd soft,nt +hematuria in pcn and urostomy ext no edema CBC, BMP 11/17/17 06:45 11/17/17 06:00 Microbiology 11/16/17 11:02 Nephrostomy Tube Drainage Gram Stain - Final 11/16/17 11:02 Nephrostomy Tube Drainage Body Fluid Culture - Preliminary NO AEROBIC GROWTH, 24 HRS 11/05/17 08:55 Blood - Peripheral Venous Blood Culture - Final NO GROWTH AFTER 5 DAYS INCUBATION 11/05/17 08:55 Blood - Peripheral Venous Blood Culture - Final NO GROWTH AFTER 5 DAYS INCUBATION 11/05/17 08:55 Urine - Urine - Catheterized Urine Culture - Final Pseudomonas Aeruginosa a/p aflutter- transferred to telemetry pseudomonas uti day #12 zosyn hydronephrosis- ?stricture- s/p PCN adrenal mass (new)-on steroids metastatic bladder cancer CAD- s/p stent leukocytosis most likely steroids will d/c zosyn Problem List - Problems (1) Sepsis Code(s): A41.9 - SEPSIS, UNSPECIFIED ORGANISM Qualifiers: Sepsis type: sepsis due to unspecified organism Qualified Code(s): A41.9 - Sepsis, unspecified organism (2) Hydronephrosis Code(s): N13.30 - UNSPECIFIED HYDRONEPHROSIS (3) UTI (urinary tract infection) Code(s): N39.0 - URINARY TRACT INFECTION, SITE NOT SPECIFIED Qualifiers: Urinary tract infection type: acute cystitis Hematuria presence: with hematuria Qualified Code(s): N30.01 - Acute cystitis with hematuria (4) Supratherapeutic INR Code(s): R79.1 - ABNORMAL COAGULATION PROFILE (5) 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
[2017-11-17] MEDS ORDERED: METOPROLOL TARTRATE 50 MG TABLET (FP) PO ONE (18:00)
[2017-11-17] MEDS ORDERED: PIPERACILLIN/TAZOB 3.375 GM 3.375 GM in DEXTROSE 5%-WATER - 50 ML IVPB SCH (18:00)
[2017-11-17] MEDS ORDERED: MAGNESIUM OXIDE 400 MG TABLET (FP) PO ONE (18:35)
--- NOTE | 2017-11-17 18:35 | PN ---
Progress Note, Physician History of Present Illness: Pt seen and examined at bedside. He is awake and alert. He denies chest pain. He was transferred to [facility] for a-flutter. - Current Medication List Current Medications: Active Medications Aspirin (Ecotrin -) 81 mg PO DAILY [facility] Clopidogrel Bisulfate (Plavix -) 75 mg PO DAILY [facility] Dexamethasone (Decadron -) 4 mg PO BID [facility] Diltiazem HCl (Cardizem Injection -) 15 mg IVPUSH Q4H PRN PRN Reason: HEART RATE >140 Sodium Chloride (Normal Saline -) 1,000 mls @ 83 mls/hr IV ASDIR [facility] Insulin Aspart (Novolog Vial Sliding Scale -) 1 vial SQ ACHS [facility]; Protocol Metoprolol Tartrate (Lopressor -) 50 mg PO BID [facility] Pantoprazole Sodium (Protonix Iv) 40 mg IVPUSH DAILY [facility] - Objective Vital Signs: Vital Signs Temperature 97.8 F 11/17/17 15:44 Pulse Rate 101 H 11/17/17 15:44 Respiratory Rate 22 H 11/17/17 15:44 Blood Pressure 146/95 11/17/17 15:44 O2 Sat by Pulse Oximetry (%) 99 11/17/17 09:00 Constitutional: Yes: Calm Eyes: Yes: Conjunctiva Clear HENT: Yes: Atraumatic Neck: Yes: Supple Cardiovascular: Yes: S1, S2 Respiratory: Yes: CTA Bilaterally Gastrointestinal: Yes: Soft Genitourinary: Yes: Other (ileal conduit, nephrostomy tube) Extremities: Yes: WNL Edema: No Neurological: Yes: Oriented Psychiatric: Yes: Oriented Labs: CBC, BMP 11/17/17 06:45 11/17/17 06:00 INR, PTT INR 1.33 (0.83-1.09) H 11/16/17 06:30 Problem List - Problems (1) Hydronephrosis Code(s): N13.30 - UNSPECIFIED HYDRONEPHROSIS (2) Sepsis Code(s): A41.9 - SEPSIS, UNSPECIFIED ORGANISM Qualifiers: Sepsis type: sepsis due to unspecified organism Qualified Code(s): A41.9 - Sepsis, unspecified organism (3) UTI (urinary tract infection) Code(s): N39.0 - URINARY TRACT INFECTION, SITE NOT SPECIFIED Qualifiers: Urinary tract infection type: acute cystitis Hematuria presence: with hematuria Qualified Code(s): N30.01 - Acute cystitis with hematuria (4) Renal dysfunction Code(s): N28.9 - DISORDER OF KIDNEY AND URETER, UNSPECIFIED Assessment/Plan Current Medications Generic Name Dose Route Start Last Admin Trade Name Freq PRN Reason Stop Dose Admin Aspirin 81 mg 11/18/17 10:00 Ecotrin - PO DAILY [facility] Clopidogrel Bisulfate 75 mg 11/18/17 10:00 Plavix - PO DAILY [facility] Dexamethasone 4 mg 11/17/17 22:00 Decadron - PO BID [facility] Diltiazem HCl 15 mg 11/17/17 16:54 Cardizem Injection - IVPUSH Q4H PRN HEART RATE >140 Sodium Chloride 1,000 mls @ 83 mls/hr 11/17/17 17:02 Normal Saline - IV ASDIR [facility] Insulin Aspart 1 vial 11/17/17 22:00 Novolog Vial Sliding Scale - SQ ACHS [facility] Protocol Metoprolol Tartrate 50 mg 11/17/17 22:00 Lopressor - PO BID [facility] Pantoprazole Sodium 40 mg 11/18/17 10:00 Protonix Iv IVPUSH DAILY [facility] Laboratory Tests 11/17/17 06:00 Potassium 4.1 Magnesium 1.8 Impression 1. CKD 2. altered mental status 3. a-fib 4. DM 5. HTN 6. hx bladder cancer 7. leukocytosis 8. sepsis 9. hyperkalemia 10. chon Plan - labs reviewed, monitor lytes - can give a dose of mag - pulm input appreciated, pt not going for cta - rate control - monitor renal function Dr Baltazar
[2017-11-17] MEDS ORDERED: INSULIN (NOVOLOG) ASPART 100 UNITS/ML 10ML VIAL ONE (20:46)
[2017-11-17] MEDS: SODIUM CHLORIDE 1,000 ML IV SCH (22:00)
[2017-11-18] MEDS: INSULIN SLIDING SCALE (NOVOLOG) 1 VIAL SQ SCH ×4 (06:14→21:26)
[2017-11-18 07:23] LABS: ALK PHOS 233 U/L (45-117); ANION GAP 9 MMOL/L (8-16); BILIRUBIN,TOTAL 0.6 mg/dL (0.2-1); BLOOD UREA NITROGEN 27 mg/dL (7-18); CALCIUM 8.7 mg/dL (8.5-10.1); CHLORIDE 107 mmol/L (98-107); CO2 23 mmol/L (21-32); CREATININE 0.9 mg/dL (0.55-1.3); GLUCOSE,RANDOM 112 mg/dL (74-106); PHOSPHOROUS 2.7 mg/dL (2.5-4.9); POTASSIUM 3.8 mmol/L (3.5-5.1); SGOT/AST 22 U/L (15-37); SGPT/ALT 44 U/L (13-61); SODIUM 139 mmol/L (136-145); TOT PROT 5.7 g/dl (6.4-8.2)
[2017-11-18] MEDS: METOPROLOL TARTRATE 25 MG TABLET (FP) PO SCH ×3 (08:57→21:23)
[2017-11-18] MEDS: DEXAMETHASONE 4 MG TABLET (FP) PO SCH ×3 (08:58→21:23)
[2017-11-18] MEDS: PANTOPRAZOLE SODIUM 40 MG VIAL IVPUSH SCH ×2 (08:59→11:21)
--- NOTE | 2017-11-18 10:14 | PN ---
Progress Note, Physician - Current Medication List Current Medications: Active Medications Aspirin (Ecotrin -) 81 mg PO DAILY [facility] Clopidogrel Bisulfate (Plavix -) 75 mg PO DAILY [facility] Dexamethasone (Decadron -) 4 mg PO BID [facility] Last Admin: 11/18/17 08:58 Dose: 4 mg Diltiazem HCl (Cardizem Injection -) 15 mg IVPUSH Q4H PRN PRN Reason: HEART RATE >140 Sodium Chloride (Normal Saline -) 1,000 mls @ 83 mls/hr IV ASDIR [facility] Last Admin: 11/17/17 22:00 Dose: 83 mls/hr Insulin Aspart (Novolog Vial Sliding Scale -) 1 vial SQ ACHS [facility]; Protocol Last Admin: 11/18/17 06:14 Dose: Not Given Metoprolol Tartrate (Lopressor -) 50 mg PO BID [facility] Last Admin: 11/18/17 08:57 Dose: 50 mg Pantoprazole Sodium (Protonix Iv) 40 mg IVPUSH DAILY [facility] Last Admin: 11/18/17 08:59 Dose: 40 mg - Objective Vital Signs: Vital Signs Temperature 98 F 11/18/17 09:00 Pulse Rate 100 H 11/18/17 09:00 Respiratory Rate 20 11/18/17 09:00 Blood Pressure 126/58 L 11/18/17 09:00 O2 Sat by Pulse Oximetry (%) 97 11/17/17 21:00 Eyes: Yes: WNL, Conjunctiva Clear, EOM Intact HENT: Yes: WNL, Atraumatic, Normocephalic Neck: Yes: WNL, Supple, Trachea Midline Cardiovascular: Yes: WNL, Regular Rate and Rhythm Respiratory: Yes: WNL, Regular, CTA Bilaterally Gastrointestinal: Yes: WNL, Normal Bowel Sounds Genitourinary: Yes: WNL Musculoskeletal: Yes: WNL Extremities: Yes: WNL Edema: No Integumentary: Yes: WNL Neurological: Yes: WNL, Alert, Oriented ...Motor Strength: WNL Psychiatric: Yes: WNL Labs: CBC, BMP 11/17/17 06:45 11/18/17 05:30 INR, PTT INR 1.33 (0.83-1.09) H 11/16/17 06:30 Assessment/Plan maribell (1) Sepsis Assessment/Plan: remains leukocytotic; likely due to both bacteremia and steroids. On antibiotics per ID. Code(s): A41.9 - SEPSIS, UNSPECIFIED ORGANISM Qualifiers: Sepsis type: sepsis due to unspecified organism Qualified Code(s): A41.9 - Sepsis, unspecified organism (2) Anemia Assessment/Plan: f/u Hb (12.1-->10.4 over the past 24 hours); post percutaneous nephrostomy 11/16. +hematuria. Recommend restarting anticoagulation (IV heparin until warfarin-->INR 2-3) as soon as possible; INR has been subtherapeutic since 11/11/2017, raising the risk of embolic CVA. Code(s): D64.9 - ANEMIA, UNSPECIFIED (3) Anxiety Code(s): F41.9 - ANXIETY DISORDER, UNSPECIFIED (4) Atrial fibrillation with rapid ventricular response Assessment/Plan: Noted to be in atrial flutter today, with variable AV block and VR 110-140 bpm. Agree with transfer to telemtry. On metoprolol tartrate for HR control;increase as necessary and as BP allows. If HR remains elevated, start diltiazem as well. Ideallyi, pt should be on an anticoagulant (warfarin was discontinued when INR noted supratherapeutic initially; it has been <2 since 11/11/2017), but this needs to be cleared by , in light of recent procedure and ongoing hematuria. He is also on ASA and clopidogrel due to arterial stent. F/u electrolytes in am (ordered). 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 f/u with oncologist, . Code(s): C67.9 - MALIGNANT NEOPLASM OF BLADDER, UNSPECIFIED; C78.00 - SECONDARY MALIGNANT NEOPLASM OF UNSPECIFIED LUNG (6) CAD (coronary artery disease) Code(s): I25.10 - ATHSCL HEART DISEASE OF [place] CORONARY ARTERY W/O ANG PCTRS Qualifiers: Coronary Disease-Associated Artery/Lesion type: [place] artery [place] vs. transplanted heart: [place] heart Associated angina: without angina Qualified Code(s): I25.10 - Atherosclerotic heart disease of [place] coronary artery without angina pectoris (7) Cardiomyopathy Assessment/Plan: severely reduced LVEF. On metoprolol. Start losartan 25 mg daily. Code(s): I42.9 - CARDIOMYOPATHY, UNSPECIFIED Qualifiers: Cardiomyopathy type: ischemic Qualified Code(s): I25.5 - Ischemic cardiomyopathy (8) Chronic systolic (congestive) heart failure Assessment/Plan: On metoprolol for HR control (PAF in sr now) and systolic CHF. Start ARB (losartan 25 mg daily). Add aldactone later if BP, renal function, and electrolytes allow. F/u BUN/Cr, Is and Os, daily weight, electrolytes. Code(s): I50.22 - CHRONIC SYSTOLIC (CONGESTIVE) HEART FAILURE (9) Hyperlipidemia Code(s): E78.5 - HYPERLIPIDEMIA, UNSPECIFIED Qualifiers: Hyperlipidemia type: pure hypercholesterolemia Qualified Code(s): E78.00 - Pure hypercholesterolemia, unspecified; E78.0 - Pure hypercholesterolemia (10) Hypertension Code(s): I10 - ESSENTIAL (PRIMARY) HYPERTENSION Qualifiers: Hypertension type: essential hypertension Qualified Code(s): I10 - Essential (primary) hypertension (11) S/P coronary artery stent placement Code(s): Z95.5 - PRESENCE OF CORONARY ANGIOPLASTY IMPLANT AND GRAFT (12) Supratherapeutic INR Code(s): R79.1 - ABNORMAL COAGULATION PROFILE (13) Hypokalemia Code(s): E87.6 - HYPOKALEMIA
--- NOTE | 2017-11-18 12:48 | PN ---
Progress Note, Physician History of Present Illness: Pt seen and examined at bedside. He does have hematuria. He denies shortness of breath. - Current Medication List Current Medications: Active Medications Aspirin (Ecotrin -) 81 mg PO DAILY [facility] Clopidogrel Bisulfate (Plavix -) 75 mg PO DAILY [facility] Dexamethasone (Decadron -) 4 mg PO BID [facility] Last Admin: 11/18/17 11:21 Dose: Not Given Diltiazem HCl (Cardizem Injection -) 15 mg IVPUSH Q4H PRN PRN Reason: HEART RATE >140 Sodium Chloride (Normal Saline -) 1,000 mls @ 83 mls/hr IV ASDIR [facility] Last Admin: 11/17/17 22:00 Dose: 83 mls/hr Insulin Aspart (Novolog Vial Sliding Scale -) 1 vial SQ ACHS [facility]; Protocol Last Admin: 11/18/17 06:14 Dose: Not Given Metoprolol Tartrate (Lopressor -) 50 mg PO BID [facility] Last Admin: 11/18/17 11:21 Dose: Not Given Pantoprazole Sodium (Protonix Iv) 40 mg IVPUSH DAILY [facility] Last Admin: 11/18/17 11:21 Dose: Not Given - Objective Vital Signs: Vital Signs Temperature 98 F 11/18/17 09:00 Pulse Rate 100 H 11/18/17 09:00 Respiratory Rate 20 11/18/17 09:00 Blood Pressure 126/58 L 11/18/17 09:00 O2 Sat by Pulse Oximetry (%) 97 11/18/17 09:00 Constitutional: Yes: Calm Eyes: Yes: Conjunctiva Clear Cardiovascular: Yes: S1, S2 Respiratory: Yes: CTA Bilaterally Gastrointestinal: Yes: Normal Bowel Sounds, Soft Genitourinary: Yes: Other (ileal conduit, nephrostomy) Musculoskeletal: Yes: WNL Edema: No Neurological: Yes: Oriented Psychiatric: Yes: Oriented Labs: CBC, BMP 11/17/17 06:45 11/18/17 05:30 INR, PTT INR 1.33 (0.83-1.09) H 11/16/17 06:30 Problem List - Problems (1) Hydronephrosis Code(s): N13.30 - UNSPECIFIED HYDRONEPHROSIS (2) Sepsis Code(s): A41.9 - SEPSIS, UNSPECIFIED ORGANISM Qualifiers: Sepsis type: sepsis due to unspecified organism Qualified Code(s): A41.9 - Sepsis, unspecified organism (3) UTI (urinary tract infection) Code(s): N39.0 - URINARY TRACT INFECTION, SITE NOT SPECIFIED Qualifiers: Urinary tract infection type: acute cystitis Hematuria presence: with hematuria Qualified Code(s): N30.01 - Acute cystitis with hematuria (4) Renal dysfunction Code(s): N28.9 - DISORDER OF KIDNEY AND URETER, UNSPECIFIED Assessment/Plan Current Medications Generic Name Dose Route Start Last Admin Trade Name Freq PRN Reason Stop Dose Admin Aspirin 81 mg 11/18/17 10:00 Ecotrin - PO DAILY [facility] Clopidogrel Bisulfate 75 mg 11/18/17 10:00 Plavix - PO DAILY [facility] Dexamethasone 4 mg 11/17/17 22:00 11/18/17 11:21 Decadron - PO Not Given BID [facility] Diltiazem HCl 15 mg 11/17/17 16:54 Cardizem Injection - IVPUSH Q4H PRN HEART RATE >140 Sodium Chloride 1,000 mls @ 83 mls/hr 11/17/17 17:02 11/17/17 22:00 Normal Saline - IV 83 mls/hr ASDIR [facility] Administration Insulin Aspart 1 vial 11/17/17 22:00 11/18/17 06:14 Novolog Vial Sliding Scale - SQ Not Given ACHS [facility] Protocol Metoprolol Tartrate 50 mg 11/17/17 22:00 11/18/17 11:21 Lopressor - PO Not Given BID [facility] Pantoprazole Sodium 40 mg 11/18/17 10:00 11/18/17 11:21 Protonix Iv IVPUSH Not Given DAILY [facility] Impression 1. CKD 2. altered mental status 3. a-fib 4. DM 5. HTN 6. hx bladder cancer 7. leukocytosis 8. sepsis 9. hyperkalemia 10. chon Plan - renal function stable - urology follow up for hematuria - monitor urine output - cardio follow up - monitor lytes - rate control - monitor renal function Dr Baltazar
--- NOTE | 2017-11-18 14:08 | PN ---
Progress Note (short form) - Note Progress Note: awake and alert NAD s/p PCN transferred to telemetry for aflutter/afib no complaints has hematuria Vital Signs Period Temp Pulse Resp BP Sys/Maynard Pulse Ox Last 24 Hr 97.8 F-98.7 F 77-101 20-22 110-146/58-95 97-97 cor-rrr lungs clear abd soft,n+urostomy pcn +hematuria CBC, BMP 11/17/17 06:45 11/18/17 05:30 Microbiology 11/16/17 11:02 Nephrostomy Tube Drainage Gram Stain - Final 11/16/17 11:02 Nephrostomy Tube Drainage Body Fluid Culture - Final NO GROWTH OF AEROBIC ORGANISMS AFTER 48 HOURS INCUBATION 11/16/17 11:02 Nephrostomy Tube Drainage Anaerobic Culture - Final NO ANAEROBES WERE ISOLATED 11/05/17 08:55 Blood - Peripheral Venous Blood Culture - Final NO GROWTH AFTER 5 DAYS INCUBATION 11/05/17 08:55 Blood - Peripheral Venous Blood Culture - Final NO GROWTH AFTER 5 DAYS INCUBATION 11/05/17 08:55 Urine - Urine - Catheterized Urine Culture - Final Pseudomonas Aeruginosa Current Medications Aspirin (Ecotrin -) 81 mg PO DAILY [facility] Clopidogrel Bisulfate (Plavix -) 75 mg PO DAILY [facility] Dexamethasone (Decadron -) 4 mg PO BID [facility] Last Admin: 11/18/17 11:21 Dose: Not Given Diltiazem HCl (Cardizem Injection -) 15 mg IVPUSH Q4H PRN PRN Reason: HEART RATE >140 Sodium Chloride (Normal Saline -) 1,000 mls @ 83 mls/hr IV ASDIR [facility] Last Admin: 11/17/17 22:00 Dose: 83 mls/hr Insulin Aspart (Novolog Vial Sliding Scale -) 1 vial SQ ACHS [facility]; Protocol Last Admin: 11/18/17 13:12 Dose: Not Given Metoprolol Tartrate (Lopressor -) 50 mg PO BID [facility] Last Admin: 11/18/17 11:21 Dose: Not Given Pantoprazole Sodium (Protonix Iv) 40 mg IVPUSH DAILY [facility] Last Admin: 11/18/17 11:21 Dose: Not Given a/p aflutter- transferred to nursing home assistant administrator hematuria hydronephrosis- ?stricture- s/p PCN adrenal mass (new)-on steroids metastatic bladder cancer CAD- s/p stent leukocytosis most likely steroids- decadron stable off zosyn please call back if needed Problem List - Problems (1) Sepsis Code(s): A41.9 - SEPSIS, UNSPECIFIED ORGANISM Qualifiers: Sepsis type: sepsis due to unspecified organism Qualified Code(s): A41.9 - Sepsis, unspecified organism (2) Hydronephrosis Code(s): N13.30 - UNSPECIFIED HYDRONEPHROSIS (3) UTI (urinary tract infection) Code(s): N39.0 - URINARY TRACT INFECTION, SITE NOT SPECIFIED Qualifiers: Urinary tract infection type: acute cystitis Hematuria presence: with hematuria Qualified Code(s): N30.01 - Acute cystitis with hematuria (4) Supratherapeutic INR Code(s): R79.1 - ABNORMAL COAGULATION PROFILE (5) 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
[2017-11-18] MEDS ORDERED: HEPARIN NA (PORCINE) 5,000 UNITS/ML 1ML VIAL IVPUSH PRN ×2 (16:20)
--- NOTE | 2017-11-18 16:32 | PN ---
Progress Note, Physician Chief Complaint: hydronephrosis anemia CAD a-fib History of Present Illness: s/p percutaneous nephrostomy tube +hematuria trx to tele for a-fib/a-flutter AC not started yet due to hematuria no repeat labs done today - Current Medication List Current Medications: Active Medications Aspirin (Ecotrin -) 81 mg PO DAILY [facility] Clopidogrel Bisulfate (Plavix -) 75 mg PO DAILY [facility] Dexamethasone (Decadron -) 4 mg PO BID [facility] Last Admin: 11/18/17 11:21 Dose: Not Given Diltiazem HCl (Cardizem Injection -) 15 mg IVPUSH Q4H PRN PRN Reason: HEART RATE >140 Heparin Sodium (Porcine) (Heparin -) 1,000 unit IVPUSH PRN PRN PRN Reason: Heparin Heparin Sodium (Porcine) (Heparin -) 5,000 unit IVPUSH PRN PRN PRN Reason: Heparin Sodium Chloride (Normal Saline -) 1,000 mls @ 83 mls/hr IV ASDIR [facility] Last Admin: 11/17/17 22:00 Dose: 83 mls/hr Heparin Sodium (Porcine) 25, (000 unit/ Sodium Chloride) 500 mls @ 20 mls/hr IV TITR [facility]; Protocol Insulin Aspart (Novolog Vial Sliding Scale -) 1 vial SQ ACHS [facility]; Protocol Last Admin: 11/18/17 13:12 Dose: Not Given Losartan Potassium (Cozaar -) 25 mg PO DAILY [facility] Metoprolol Tartrate (Lopressor -) 50 mg PO BID [facility] Last Admin: 11/18/17 11:21 Dose: Not Given Pantoprazole Sodium (Protonix Iv) 40 mg IVPUSH DAILY [facility] Last Admin: 11/18/17 11:21 Dose: Not Given Warfarin Sodium (Coumadin -) 4 mg PO ONCE@1800 ONE Stop: 11/19/17 18:01 - Objective Vital Signs: Vital Signs Temperature 97.9 F 11/18/17 14:00 Pulse Rate 78 11/18/17 14:00 Respiratory Rate 20 11/18/17 09:00 Blood Pressure 113/64 11/18/17 14:00 O2 Sat by Pulse Oximetry (%) 97 11/18/17 09:00 Constitutional: Yes: Well Nourished, No Distress, Calm Cardiovascular: Yes: Pulse Irregular Respiratory: Yes: WNL, CTA Bilaterally Gastrointestinal: Yes: Soft, Abdomen, Obese, Other (colostomy present) Genitourinary: Yes: [place] Present, Hematuria Musculoskeletal: Yes: Muscle Weakness Extremities: Yes: WNL Edema: No Peripheral Pulses WNL: Yes Wound/Incision: Yes: Clean/Dry, Dressing Dry and Intact (s/p R percutaneous nephrostomy, non tender) Neurological: Yes: Alert, Oriented Psychiatric: Yes: Alert, Oriented Labs: CBC, BMP 11/17/17 06:45 11/18/17 05:30 INR, PTT INR 1.33 (0.83-1.09) H 11/16/17 06:30 Problem List - Problems (1) Adrenal mass Assessment/Plan: -cont on decadron -seen by service observer chief Code(s): E27.9 - DISORDER OF ADRENAL GLAND, UNSPECIFIED (2) Hydronephrosis Assessment/Plan: -R hydronephrosis -s/p R percutaneous nephrostomy tube -nephrology on board Code(s): N13.30 - UNSPECIFIED HYDRONEPHROSIS (3) Sepsis Assessment/Plan: -finished IV ABT -continue routine labs monitor CBC -pt afebrile, last lactic acid WNL Code(s): A41.9 - SEPSIS, UNSPECIFIED ORGANISM Qualifiers: Sepsis type: sepsis due to unspecified organism Qualified Code(s): A41.9 - Sepsis, unspecified organism (4) Supratherapeutic INR Assessment/Plan: -cardiology on board and consult appreciated -started on IV heparin drip -warfarin PO x 1 dose 11/19, adjust dosage as per INR -PT/INR Daily Code(s): R79.1 - ABNORMAL COAGULATION PROFILE (5) Tachycardia Assessment/Plan: -cardiology on board -start on Losartan 25mg tab PO QD -cont with tele monitoring -already on BB and CCB Code(s): R00.0 - TACHYCARDIA, UNSPECIFIED (6) UTI (urinary tract infection) Assessment/Plan: -treated with ABT -ID on board -afebrile, asymptomatic Code(s): N39.0 - URINARY TRACT INFECTION, SITE NOT SPECIFIED Qualifiers: Urinary tract infection type: acute cystitis Hematuria presence: with hematuria Qualified Code(s): N30.01 - Acute cystitis with hematuria (7) Anemia Assessment/Plan: -serial CBC x 5 to monitor H/H -stool occult negative -iron profile shows iron deficiency, B12 and Thyroid unremarkable -Venofer Infusion x 1 Code(s): D64.9 - ANEMIA, UNSPECIFIED (8) Atrial fibrillation with rapid ventricular response Assessment/Plan: -tele monitoring -currently in NSR -cont with warfarin and adjust dose as needed -cardiology on board Code(s): I48.91 - UNSPECIFIED ATRIAL FIBRILLATION (9) CAD (coronary artery disease) Assessment/Plan: -on Plavix, ASA, and BB -lipid profile in AM -unsure why pt not on statin -re-start atorvastatin 40mg qhs Code(s): I25.10 - ATHSCL HEART DISEASE OF [place] CORONARY ARTERY W/O ANG PCTRS Qualifiers: Coronary Disease-Associated Artery/Lesion type: [place] artery [place] vs. 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
[2017-11-18] MEDS ORDERED: IRON SUCROSE INJECTION 300 MG in SODIUM CHLORIDE 235 ML IVPB ONE (16:48)
[2017-11-18] MEDS ORDERED: ACETAMINOPHEN 325 MG TABLET (FP) PO PRN (16:59)
[2017-11-18 17:11] LABS: BASO % 0.2 % (0-2.0); HEMATOCRIT 32.8 % (35.4-49); HEMOGLOBIN 10.4 GM/dL (11.7-16.9); LYMPH % 1.5 % (8-40); MCH 26.8 pg (25.7-33.7); MCHC 31.8 g/dl (32.0-35.9); MEAN CELL VOLUME 84.1 fl (80-96); MEAN PLT VOLUME 9.3 fl (7.5-11.1); MONO % 3.4 % (3.8-10.2); NEUT % 94.9 % (42.8-82.8); PLATELET COUNT 270 K/MM3 (134-434); RDW 18.1 % (11.9-15.9); WHITE BLOOD COUNT 21.8 K/mm3 (4.0-10.0)
[2017-11-18 17:54] LABS: ALK PHOS 273 U/L (45-117); ANION GAP 7 MMOL/L (8-16); BILIRUBIN,TOTAL 0.6 mg/dL (0.2-1); BLOOD UREA NITROGEN 27 mg/dL (7-18); CHLORIDE 106 mmol/L (98-107); CO2 23 mmol/L (21-32); CREATININE 0.9 mg/dL (0.55-1.3); GLUCOSE,RANDOM 167 mg/dL (74-106); POTASSIUM 3.9 mmol/L (3.5-5.1); SGOT/AST 21 U/L (15-37); SGPT/ALT 47 U/L (13-61); SODIUM 136 mmol/L (136-145); TOT PROT 5.7 g/dl (6.4-8.2)
[2017-11-18] MEDS: ASPIRIN COATED 81 MG TABLET.EC PO SCH (17:57)
[2017-11-18] MEDS: CLOPIDOGREL BISULFATE 75 MG TABLET (FP) PO SCH (17:58)
[2017-11-18] MEDS: HEPARIN - 25,000 UNIT in SODIUM CHLORIDE 495 ML IV SCH (18:01)
[2017-11-18] MEDS: LOSARTAN POTASSIUM 25 MG TABLET PO SCH (18:31)
[2017-11-18] MEDS: SODIUM CHLORIDE 1,000 ML IV SCH (18:32)
[2017-11-18] MEDS: ATORVASTATIN CA 40 MG TABLET (FP) PO SCH (21:23)
[2017-11-18 21:56] LABS: PLATELET ESTIMATE ADEQUATE
--- NOTE | 2017-11-18 22:53 | PN ---
Progress Note, Physician Chief Complaint: feeling weak in bed eating better History of Present Illness: dm,adrenal deficient,sp nephrostomy tube placement ,sp cosyntropin test result low cortisol - Current Medication List Current Medications: Active Medications Acetaminophen (Tylenol -) 650 mg PO Q4H PRN PRN Reason: FEVER Acetaminophen (Tylenol -) 650 mg PO Q4H PRN PRN Reason: PAIN LEVEL 1 - 3 Aspirin (Ecotrin -) 81 mg PO DAILY [facility] Last Admin: 11/18/17 17:57 Dose: Not Given Atorvastatin Calcium (Lipitor -) 40 mg PO HS [facility] Last Admin: 11/18/17 21:23 Dose: 40 mg Clopidogrel Bisulfate (Plavix -) 75 mg PO DAILY [facility] Last Admin: 11/18/17 17:58 Dose: Not Given Dexamethasone (Decadron -) 4 mg PO BID [facility] Last Admin: 11/18/17 21:23 Dose: 4 mg Diltiazem HCl (Cardizem Injection -) 15 mg IVPUSH Q4H PRN PRN Reason: HEART RATE >140 Heparin Sodium (Porcine) (Heparin -) 1,000 unit IVPUSH PRN PRN PRN Reason: Heparin Heparin Sodium (Porcine) (Heparin -) 5,000 unit IVPUSH PRN PRN PRN Reason: Heparin Sodium Chloride (Normal Saline -) 1,000 mls @ 83 mls/hr IV ASDIR [facility] Last Admin: 11/18/17 18:32 Dose: Not Given Heparin Sodium (Porcine) 25, (000 unit/ Sodium Chloride) 500 mls @ 20 mls/hr IV TITR [facility]; Protocol Last Admin: 11/18/17 18:01 Dose: 1,000 unit/hr, 20 mls/hr Insulin Aspart (Novolog Vial Sliding Scale -) 1 vial SQ ACHS [facility]; Protocol Last Admin: 11/18/17 21:26 Dose: 2 units Losartan Potassium (Cozaar -) 25 mg PO DAILY [facility] Last Admin: 11/18/17 18:31 Dose: 25 mg Metoprolol Tartrate (Lopressor -) 50 mg PO BID [facility] Last Admin: 11/18/17 21:23 Dose: 50 mg Oxycodone HCl (Roxicodone -) 5 mg PO Q6H PRN PRN Reason: PAIN LEVEL 7 - 10 Pantoprazole Sodium (Protonix Iv) 40 mg IVPUSH DAILY [facility] Last Admin: 11/18/17 11:21 Dose: Not Given Tramadol HCl (Ultram -) 50 mg PO Q8H PRN PRN Reason: PAIN LEVEL 4 - 6 Warfarin Sodium (Coumadin -) 4 mg PO ONCE@1800 ONE Stop: 11/19/17 18:01 - Objective Vital Signs: Vital Signs Temperature 98.5 F 11/18/17 22:00 Pulse Rate 86 11/18/17 22:00 Respiratory Rate 20 11/18/17 22:00 Blood Pressure 123/86 11/18/17 22:00 O2 Sat by Pulse Oximetry (%) 96 11/18/17 21:00 Constitutional: Yes: Well Nourished Eyes: Yes: EOM Intact HENT: Yes: Normocephalic Neck: Yes: Trachea Midline Cardiovascular: Yes: Pulse Irregular Respiratory: Yes: CTA Bilaterally Gastrointestinal: Yes: Normal Bowel Sounds ...Rectal Exam: Yes: Deferred Musculoskeletal: Yes: Back Pain, Muscle Weakness Labs: CBC, BMP 11/18/17 16:40 11/18/17 16:40 INR, PTT INR 1.33 (0.83-1.09) H 11/16/17 06:30 Problem List - Problems (1) HEYDI (acute kidney injury) Code(s): N17.9 - ACUTE KIDNEY FAILURE, UNSPECIFIED (2) Adrenal mass Code(s): E27.9 - DISORDER OF ADRENAL GLAND, UNSPECIFIED (3) Hydronephrosis Code(s): N13.30 - UNSPECIFIED HYDRONEPHROSIS (4) Sepsis Code(s): A41.9 - SEPSIS, UNSPECIFIED ORGANISM Qualifiers: Sepsis type: sepsis due to unspecified organism Qualified Code(s): A41.9 - Sepsis, unspecified organism (5) Supratherapeutic INR Code(s): R79.1 - ABNORMAL COAGULATION PROFILE (6) Anemia Code(s): D64.9 - ANEMIA, UNSPECIFIED (7) Anxiety Code(s): F41.9 - ANXIETY DISORDER, UNSPECIFIED Assessment/Plan Current Active Problems HEYDI (acute kidney injury) (Acute) Adrenal mass (Acute) Hydronephrosis (Acute) Hypokalemia (Acute) Sepsis (Acute) Supratherapeutic INR (Acute) Tachycardia (Acute) UTI (urinary tract infection) (Acute) Abnormal Lab Results 11/18/17 11/18/17 11/18/17 05:30 16:40 16:40 WBC 21.8 H RBC 3.90 L Hgb 10.4 L Hct 32.8 L MCHC 31.8 L RDW 18.1 H Absolute Neuts (auto) 20.7 H Neutrophils % 94.9 H Neutrophils % (Manual) 87.0 H Lymphocytes % 1.5 L D Lymphocytes % (Manual) 3.0 L D Monocytes % 3.4 L Anion Gap 7 L BUN 27 H 27 H Random Glucose 112 H 167 H Alkaline Phosphatase 233 H 273 H Total Protein 5.7 L 5.7 L Albumin 2.0 L 2.0 L Laboratory Results - last 24 hr 11/17/17 11/18/17 11/18/17 06:45 05:02 05:30 WBC RBC Hgb Hct MCV MCH MCHC RDW Plt Count MPV Absolute Neuts (auto) Neutrophils % Neutrophils % (Manual) Band Neutrophils % Lymphocytes % Lymphocytes % (Manual) Monocytes % Monocytes % (Manual) Eosinophils % Eosinophils % (Manual) Basophils % Nucleated RBC % Hypochromia Platelet Estimate Sodium 139 Potassium 3.8 Chloride 107 Carbon Dioxide 23 Anion Gap 9 BUN 27 H Creatinine 0.9 Creat Clearance w eGFR > 60 POC Glucometer 128 Random Glucose 112 H Calcium 8.7 Phosphorus 2.7 Magnesium 2.0 Total Bilirubin 0.6 AST 22 ALT 44 Alkaline Phosphatase 233 H Total Protein 5.7 L Albumin 2.0 L Cortisol AM Sample 5.8 11/18/17 11/18/17 11/18/17 16:40 16:40 17:32 WBC 21.8 H RBC 3.90 L Hgb 10.4 L Hct 32.8 L MCV 84.1 MCH 26.8 MCHC 31.8 L RDW 18.1 H Plt Count 270 MPV 9.3 Absolute Neuts (auto) 20.7 H Neutrophils % 94.9 H Neutrophils % (Manual) 87.0 H Band Neutrophils % 3.0 Lymphocytes % 1.5 L D Lymphocytes % (Manual) 3.0 L D Monocytes % 3.4 L Monocytes % (Manual) 6 D Eosinophils % 0.0 D Eosinophils % (Manual) 1.0 D Basophils % 0.2 Nucleated RBC % 0 Hypochromia 1+ Platelet Estimate Adequate Sodium 136 Potassium 3.9 Chloride 106 Carbon Dioxide 23 Anion Gap 7 L BUN 27 H Creatinine 0.9 Creat Clearance w eGFR > 60 POC Glucometer 203 Random Glucose 167 H Calcium 9.0 Phosphorus Magnesium Total Bilirubin 0.6 AST 21 ALT 47 Alkaline Phosphatase 273 H Total Protein 5.7 L Albumin 2.0 L Cortisol AM Sample 11/18/17 21:25 WBC RBC Hgb Hct MCV MCH MCHC RDW Plt Count MPV Absolute Neuts (auto) Neutrophils % Neutrophils % (Manual) Band Neutrophils % Lymphocytes % Lymphocytes % (Manual) Monocytes % Monocytes % (Manual) Eosinophils % Eosinophils % (Manual) Basophils % Nucleated RBC % Hypochromia Platelet Estimate Sodium Potassium Chloride Carbon Dioxide Anion Gap BUN Creatinine Creat Clearance w eGFR POC Glucometer 177 Random Glucose Calcium Phosphorus Magnesium Total Bilirubin AST ALT Alkaline Phosphatase Total Protein Albumin Cortisol AM Sample Laboratory Tests 11/17/17 06:45 Cortisol AM Sample 5.8 plan: dexamethasone 6mg daily will taper dexamethasone to 2mg daily dose maintenance for adrenal support
[2017-11-19] MEDS: INSULIN SLIDING SCALE (NOVOLOG) 1 VIAL SQ SCH ×3 (06:41→16:57)
[2017-11-19 06:47] LABS: BASO % 0.1 % (0-2.0); EOS % 0.1 % (0-4.5); HEMOGLOBIN 10.4 GM/dL (11.7-16.9); LYMPH % 1.3 % (8-40); MCH 26.4 pg (25.7-33.7); MCHC 31.5 g/dl (32.0-35.9); MEAN PLT VOLUME 9.8 fl (7.5-11.1); NEUT % 95.5 % (42.8-82.8); PLATELET COUNT 251 K/MM3 (134-434); RBC 3.93 M/mm3 (4.00-5.60); RDW 18.2 % (11.9-15.9); WHITE BLOOD COUNT 23.1 K/mm3 (4.0-10.0)
[2017-11-19 07:13] LABS: INR 1.32 (0.83-1.09); PROTHROMBIN TIME (PATIENT) 15.6 SEC (9.7-13.0)
[2017-11-19 08:57] LABS: ALK PHOS 276 U/L (45-117); ANION GAP 11 MMOL/L (8-16); BILIRUBIN,TOTAL 0.6 mg/dL (0.2-1); BLOOD UREA NITROGEN 26 mg/dL (7-18); CHLORIDE 108 mmol/L (98-107); CHOLESTEROL 152 mg/dL (50-200); CO2 20 mmol/L (21-32); CREATININE 0.8 mg/dL (0.55-1.3); GLUCOSE,RANDOM 116 mg/dL (74-106); HDL CHOLESTEROL 41 mg/dL (40-60); POTASSIUM 4.1 mmol/L (3.5-5.1); SGOT/AST 26 U/L (15-37); SGPT/ALT 49 U/L (13-61); SODIUM 139 mmol/L (136-145); TOT PROT 5.6 g/dl (6.4-8.2); TRIGLYCERIDES 127 mg/dL (0-150)
[2017-11-19] MEDS: METOPROLOL TARTRATE 25 MG TABLET (FP) PO SCH ×2 (09:08→21:17)
[2017-11-19] MEDS: DEXAMETHASONE 4 MG TABLET (FP) PO SCH ×2 (09:08→21:17)
[2017-11-19] MEDS: LOSARTAN POTASSIUM 25 MG TABLET PO SCH ×2 (09:08→10:16)
[2017-11-19] MEDS: HEPARIN - 25,000 UNIT in SODIUM CHLORIDE 495 ML IV SCH ×2 (09:09→17:15)
[2017-11-19] MEDS: PANTOPRAZOLE SODIUM 40 MG VIAL IVPUSH SCH (09:13)
--- NOTE | 2017-11-19 09:14 | PN ---
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 As per EMS the patients systolic was noted to be in the 60s and they placed a PIV and started a liter of NS prior to arrival in the emergency department. The patient denies chest pain, shortness of breath, headache and dizziness. Denies fever, chills, nausea, vomit, diarrhea and constipation. Denies dysuria, frequency, urgency and hematuria. - Current Medication List Current Medications: Active Medications Acetaminophen (Tylenol -) 650 mg PO Q4H PRN PRN Reason: FEVER Acetaminophen (Tylenol -) 650 mg PO Q4H PRN PRN Reason: PAIN LEVEL 1 - 3 Aspirin (Ecotrin -) 81 mg PO DAILY [facility] Last Admin: 11/18/17 17:57 Dose: Not Given Atorvastatin Calcium (Lipitor -) 40 mg PO HS [facility] Last Admin: 11/18/17 21:23 Dose: 40 mg Clopidogrel Bisulfate (Plavix -) 75 mg PO DAILY [facility] Last Admin: 11/18/17 17:58 Dose: Not Given Dexamethasone (Decadron -) 4 mg PO BID [facility] Last Admin: 11/18/17 21:23 Dose: 4 mg Diltiazem HCl (Cardizem Injection -) 15 mg IVPUSH Q4H PRN PRN Reason: HEART RATE >140 Heparin Sodium (Porcine) (Heparin -) 1,000 unit IVPUSH PRN PRN PRN Reason: Heparin Heparin Sodium (Porcine) (Heparin -) 5,000 unit IVPUSH PRN PRN PRN Reason: Heparin Sodium Chloride (Normal Saline -) 1,000 mls @ 83 mls/hr IV ASDIR [facility] Last Admin: 11/18/17 18:32 Dose: Not Given Heparin Sodium (Porcine) 25, (000 unit/ Sodium Chloride) 500 mls @ 20 mls/hr IV TITR [facility]; Protocol Last Admin: 11/18/17 18:01 Dose: 1,000 unit/hr, 20 mls/hr Insulin Aspart (Novolog Vial Sliding Scale -) 1 vial SQ ACHS [facility]; Protocol Last Admin: 11/19/17 06:41 Dose: Not Given Losartan Potassium (Cozaar -) 25 mg PO DAILY [facility] Last Admin: 11/18/17 18:31 Dose: 25 mg Metoprolol Tartrate (Lopressor -) 50 mg PO BID [facility] Last Admin: 11/18/17 21:23 Dose: 50 mg Oxycodone HCl (Roxicodone -) 5 mg PO Q6H PRN PRN Reason: PAIN LEVEL 7 - 10 Pantoprazole Sodium (Protonix Iv) 40 mg IVPUSH DAILY [facility] Last Admin: 11/18/17 11:21 Dose: Not Given Tramadol HCl (Ultram -) 50 mg PO Q8H PRN PRN Reason: PAIN LEVEL 4 - 6 Warfarin Sodium (Coumadin -) 4 mg PO ONCE@1800 ONE Stop: 11/19/17 18:01 - Objective Vital Signs: Vital Signs Temperature 97.6 F 11/19/17 06:00 Pulse Rate 90 11/19/17 06:00 Respiratory Rate 20 11/19/17 06:00 Blood Pressure 100/59 L 11/19/17 06:00 O2 Sat by Pulse Oximetry (%) 96 11/18/17 21:00 Constitutional: Yes: No Distress Eyes: Yes: WNL HENT: Yes: WNL Neck: Yes: WNL Cardiovascular: Yes: Tachycardia, Pulse Irregular, S1 (varies in intensity) Respiratory: Yes: Regular Gastrointestinal: Yes: Soft, Other (ileal conduit) ...Rectal Exam: Yes: Deferred Genitourinary: Yes: Other (nephrolstomy). No: Anuria Musculoskeletal: Yes: Muscle Weakness Edema: No Peripheral Pulses WNL: No Peripheral Pulses: Left Doralis Pedis: 1+, Right Dorsalis Pedis: 1+ Integumentary: Yes: WNL Neurological: Yes: Alert, Weakness Psychiatric: Yes: Alert Labs: CBC, BMP 11/19/17 05:30 11/19/17 05:30 INR, PTT INR 1.32 (0.83-1.09) H 11/19/17 05:30 Abnormal Lab Results 11/19/17 11/19/17 11/19/17 05:30 05:30 05:30 WBC RBC Hgb Hct MCHC RDW Absolute Neuts (auto) Neutrophils % Neutrophils % (Manual) 94.9 H Lymphocytes % Lymphocytes % (Manual) 3.1 L Monocytes % Monocytes % (Manual) 2 L PT with INR INR PTT (Actin FS) 52.2 H Chloride 108 H Carbon Dioxide 20 L Anion Gap BUN 26 H Random Glucose 116 H Alkaline Phosphatase 276 H Total Protein 5.6 L Albumin 2.0 L 11/20/17 11/20/17 11/20/17 05:30 05:30 05:30 WBC 22.3 H RBC 3.92 L Hgb 10.5 L Hct 33.1 L MCHC 31.6 L RDW 18.2 H Absolute Neuts (auto) 21.2 H Neutrophils % 94.8 H Neutrophils % (Manual) Lymphocytes % 1.3 L Lymphocytes % (Manual) Monocytes % 3.2 L Monocytes % (Manual) PT with INR 17.50 H INR 1.48 H PTT (Actin FS) 47.4 H Chloride 109 H Carbon Dioxide Anion Gap 7 L BUN 29 H Random Glucose 169 H Alkaline Phosphatase 271 H Total Protein 5.3 L Albumin 1.9 L - ....Imaging Other: Image Reviewed (Telemetry: AF; periods of RVR) Problem List - Problems (1) Sepsis Assessment/Plan: F?u with ID; being considered for stopping antibiotics. Code(s): A41.9 - SEPSIS, UNSPECIFIED ORGANISM Qualifiers: Sepsis type: sepsis due to unspecified organism Qualified Code(s): A41.9 - Sepsis, unspecified organism (2) Anemia Assessment/Plan: f/u Hb (12.1-->10.4 over the past 24 hours); post percutaneous nephrostomy 11/16. +hematuria. Now on anticoagulation (IV heparin until warfarin-->INR 2-3) Hb stable. ASA and clopidogrel held due to hematuria. Code(s): D64.9 - ANEMIA, UNSPECIFIED (3) Anxiety Code(s): F41.9 - ANXIETY DISORDER, UNSPECIFIED (4) Atrial fibrillation with rapid ventricular response Assessment/Plan: On metoprolol 50 bid for HR control, and increase dose as needed and as BP tolerates; f/u on telemetry. Severely reduced LVEF. 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 f/u with oncologist, . Code(s): C67.9 - MALIGNANT NEOPLASM OF BLADDER, UNSPECIFIED; C78.00 - SECONDARY MALIGNANT NEOPLASM OF UNSPECIFIED LUNG (6) CAD (coronary artery disease) Code(s): I25.10 - ATHSCL HEART DISEASE OF [place] CORONARY ARTERY W/O ANG PCTRS Qualifiers: Coronary Disease-Associated Artery/Lesion type: [place] artery [place] vs. transplanted heart: [place] heart Associated angina: without angina Qualified Code(s): I25.10 - Atherosclerotic heart disease of [place] coronary artery without angina pectoris (7) Cardiomyopathy Assessment/Plan: severely reduced LVEF. On metoprolol. Started losartan 25 mg daily. Code(s): I42.9 - CARDIOMYOPATHY, UNSPECIFIED Qualifiers: Cardiomyopathy type: ischemic Qualified Code(s): I25.5 - Ischemic cardiomyopathy (8) Chronic systolic (congestive) heart failure Code(s): I50.22 - CHRONIC SYSTOLIC (CONGESTIVE) HEART FAILURE (9) Hyperlipidemia Code(s): E78.5 - HYPERLIPIDEMIA, UNSPECIFIED Qualifiers: Hyperlipidemia type: pure hypercholesterolemia Qualified Code(s): E78.00 - Pure hypercholesterolemia, unspecified; E78.0 - Pure hypercholesterolemia (10) Hypertension Code(s): I10 - ESSENTIAL (PRIMARY) HYPERTENSION Qualifiers: Hypertension type: essential hypertension Qualified Code(s): I10 - Essential (primary) hypertension (11) S/P coronary artery stent placement Code(s): Z95.5 - PRESENCE OF CORONARY ANGIOPLASTY IMPLANT AND GRAFT (12) Supratherapeutic INR Code(s): R79.1 - ABNORMAL COAGULATION PROFILE (13) Hypokalemia Code(s): E87.6 - HYPOKALEMIA
[2017-11-19] MEDS: CLOPIDOGREL BISULFATE 75 MG TABLET (FP) PO SCH (10:16)
[2017-11-19] MEDS: ASPIRIN COATED 81 MG TABLET.EC PO SCH (10:16)
[2017-11-19 14:23] LABS: ANISOCYTOSIS 1+; MACROCYTOSIS 1+; OVALOCYTE 1+; PLATELET ESTIMATE NORMAL
[2017-11-19] MEDS ORDERED: PT OWN MED DRAWER 7, Y5N ONE (14:45)
--- NOTE | 2017-11-19 16:21 | PN ---
Progress Note, Physician History of Present Illness: Pt seen and examined at bedside. He is awake and alert. He denies chest pain or shortness of breath. - Current Medication List Current Medications: Active Medications Acetaminophen (Tylenol -) 650 mg PO Q4H PRN PRN Reason: FEVER Acetaminophen (Tylenol -) 650 mg PO Q4H PRN PRN Reason: PAIN LEVEL 1 - 3 Aspirin (Ecotrin -) 81 mg PO DAILY [facility] Last Admin: 11/19/17 10:16 Dose: Not Given Atorvastatin Calcium (Lipitor -) 40 mg PO HS [facility] Last Admin: 11/18/17 21:23 Dose: 40 mg Clopidogrel Bisulfate (Plavix -) 75 mg PO DAILY [facility] Last Admin: 11/19/17 10:16 Dose: Not Given Dexamethasone (Decadron -) 4 mg PO BID [facility] Last Admin: 11/19/17 09:08 Dose: 4 mg Diltiazem HCl (Cardizem Injection -) 15 mg IVPUSH Q4H PRN PRN Reason: HEART RATE >140 Heparin Sodium (Porcine) (Heparin -) 1,000 unit IVPUSH PRN PRN PRN Reason: Heparin Heparin Sodium (Porcine) (Heparin -) 5,000 unit IVPUSH PRN PRN PRN Reason: Heparin Sodium Chloride (Normal Saline -) 1,000 mls @ 83 mls/hr IV ASDIR [facility] Last Admin: 11/18/17 18:32 Dose: Not Given Heparin Sodium (Porcine) 25, (000 unit/ Sodium Chloride) 500 mls @ 20 mls/hr IV TITR [facility]; Protocol Last Admin: 11/19/17 09:09 Dose: 1,000 unit/hr, 20 mls/hr Insulin Aspart (Novolog Vial Sliding Scale -) 1 vial SQ ACHS [facility]; Protocol Last Admin: 11/19/17 11:35 Dose: Not Given Losartan Potassium (Cozaar -) 25 mg PO DAILY [facility] Last Admin: 11/19/17 10:16 Dose: Not Given Metoprolol Tartrate (Lopressor -) 50 mg PO BID [facility] Last Admin: 11/19/17 09:08 Dose: 50 mg Oxycodone HCl (Roxicodone -) 5 mg PO Q6H PRN PRN Reason: PAIN LEVEL 7 - 10 Pantoprazole Sodium (Protonix Iv) 40 mg IVPUSH DAILY [facility] Last Admin: 11/19/17 09:13 Dose: 40 mg Tramadol HCl (Ultram -) 50 mg PO Q8H PRN PRN Reason: PAIN LEVEL 4 - 6 Warfarin Sodium (Coumadin -) 4 mg PO ONCE@1800 ONE Stop: 11/19/17 18:01 - Objective Vital Signs: Vital Signs Temperature 98.1 F 11/19/17 14:00 Pulse Rate 108 H 11/19/17 14:00 Respiratory Rate 20 11/19/17 14:00 Blood Pressure 114/70 11/19/17 14:00 O2 Sat by Pulse Oximetry (%) 96 11/19/17 09:00 Constitutional: Yes: Calm Eyes: Yes: Conjunctiva Clear Cardiovascular: Yes: S1, S2 Respiratory: Yes: CTA Bilaterally Gastrointestinal: Yes: Soft Genitourinary: Yes: Other (ileal conduit, nephrostomy) Edema: No Neurological: Yes: Oriented Psychiatric: Yes: Oriented Labs: CBC, BMP 11/19/17 05:30 11/19/17 05:30 INR, PTT INR 1.32 (0.83-1.09) H 11/19/17 05:30 Problem List - Problems (1) Hydronephrosis Code(s): N13.30 - UNSPECIFIED HYDRONEPHROSIS (2) Sepsis Code(s): A41.9 - SEPSIS, UNSPECIFIED ORGANISM Qualifiers: Sepsis type: sepsis due to unspecified organism Qualified Code(s): A41.9 - Sepsis, unspecified organism (3) UTI (urinary tract infection) Code(s): N39.0 - URINARY TRACT INFECTION, SITE NOT SPECIFIED Qualifiers: Urinary tract infection type: acute cystitis Hematuria presence: with hematuria Qualified Code(s): N30.01 - Acute cystitis with hematuria (4) Renal dysfunction Code(s): N28.9 - DISORDER OF KIDNEY AND URETER, UNSPECIFIED Assessment/Plan Current Medications Generic Name Dose Route Start Last Admin Trade Name Freq PRN Reason Stop Dose Admin Acetaminophen 650 mg 11/18/17 16:59 Tylenol - PO Q4H PRN FEVER Acetaminophen 650 mg 11/18/17 16:59 Tylenol - PO Q4H PRN PAIN LEVEL 1 - 3 Aspirin 81 mg 11/18/17 10:00 11/19/17 10:16 Ecotrin - PO Not Given DAILY [facility] Atorvastatin Calcium 40 mg 11/18/17 22:00 11/18/17 21:23 Lipitor - PO 40 mg HS [facility] Administration Clopidogrel Bisulfate 75 mg 11/18/17 10:00 11/19/17 10:16 Plavix - PO Not Given DAILY [facility] Dexamethasone 4 mg 11/17/17 22:00 11/19/17 09:08 Decadron - PO 4 mg BID [facility] Administration Diltiazem HCl 15 mg 11/17/17 16:54 Cardizem Injection - IVPUSH Q4H PRN HEART RATE >140 Heparin Sodium (Porcine) 1,000 unit 11/18/17 16:20 Heparin - IVPUSH PRN PRN Heparin Heparin Sodium (Porcine) 5,000 unit 11/18/17 16:20 Heparin - IVPUSH PRN PRN Heparin Sodium Chloride 1,000 mls @ 83 mls/hr 11/17/17 17:02 11/18/17 18:32 Normal Saline - IV Not Given ASDIR [facility] Heparin Sodium (Porcine) 25, 500 mls @ 20 mls/hr 11/18/17 16:30 11/19/17 09: 09 000 unit/ Sodium Chloride IV 1,000 unit/hr TITR [facility] 20 mls/hr Administration Protocol 1,000 UNIT/HR Insulin Aspart 1 vial 11/17/17 22:00 11/19/17 11:35 Novolog Vial Sliding Scale - SQ Not Given ACHS [facility] Protocol Losartan Potassium 25 mg 11/18/17 16:30 11/19/17 10:16 Cozaar - PO Not Given DAILY [facility] Metoprolol Tartrate 50 mg 11/17/17 22:00 11/19/17 09:08 Lopressor - PO 50 mg BID [facility] Administration Oxycodone HCl 5 mg 11/18/17 17:02 Roxicodone - PO Q6H PRN PAIN LEVEL 7 - 10 Pantoprazole Sodium 40 mg 11/18/17 10:00 11/19/17 09:13 Protonix Iv IVPUSH 40 mg DAILY [facility] Administration Tramadol HCl 50 mg 11/18/17 17:01 Ultram - PO Q8H PRN PAIN LEVEL 4 - 6 Warfarin Sodium 4 mg 11/19/17 18:00 Coumadin - PO 11/19/17 18:01 ONCE@1800 ONE Impression 1. CKD 2. altered mental status 3. a-fib 4. DM 5. HTN 6. hx bladder cancer 7. leukocytosis 8. sepsis 9. hyperkalemia 10. chon Plan - monitor renal function - monitor output from nephrostomy - cardio input appreciated - rate control - no acute change in management from renal standpoint - discussed with family Dr Baltazar
[2017-11-19] MEDS: SODIUM CHLORIDE 1,000 ML IV SCH ×2 (17:15→23:27)
[2017-11-19] MEDS ORDERED: WARFARIN NA 2 MG TABLET (UD) PO ONE (18:00)
[2017-11-19] MEDS ORDERED: WARFARIN NA 5 MG TABLET (UD) PO ONE (18:26)
--- NOTE | 2017-11-19 18:31 | PN ---
Progress Note, Physician Chief Complaint: hydronephrosis anemia CAD a-fib History of Present Illness: s/p percutaneous nephrostomy tube +hematuria trx to tele for a-fib/a-flutter Warfarin restarted On IV heparin INR subtherapeutic - Current Medication List Current Medications: Active Medications Acetaminophen (Tylenol -) 650 mg PO Q4H PRN PRN Reason: FEVER Acetaminophen (Tylenol -) 650 mg PO Q4H PRN PRN Reason: PAIN LEVEL 1 - 3 Aspirin (Ecotrin -) 81 mg PO DAILY [facility] Last Admin: 11/19/17 10:16 Dose: Not Given Atorvastatin Calcium (Lipitor -) 40 mg PO HS [facility] Last Admin: 11/18/17 21:23 Dose: 40 mg Clopidogrel Bisulfate (Plavix -) 75 mg PO DAILY [facility] Last Admin: 11/19/17 10:16 Dose: Not Given Dexamethasone (Decadron -) 4 mg PO BID [facility] Last Admin: 11/19/17 09:08 Dose: 4 mg Diltiazem HCl (Cardizem Injection -) 15 mg IVPUSH Q4H PRN PRN Reason: HEART RATE >140 Heparin Sodium (Porcine) (Heparin -) 1,000 unit IVPUSH PRN PRN PRN Reason: Heparin Heparin Sodium (Porcine) (Heparin -) 5,000 unit IVPUSH PRN PRN PRN Reason: Heparin Sodium Chloride (Normal Saline -) 1,000 mls @ 83 mls/hr IV ASDIR [facility] Last Admin: 11/19/17 17:15 Dose: 83 mls/hr Heparin Sodium (Porcine) 25, (000 unit/ Sodium Chloride) 500 mls @ 20 mls/hr IV TITR [facility]; Protocol Last Admin: 11/19/17 17:15 Dose: 1,000 unit/hr, 20 mls/hr Insulin Aspart (Novolog Vial Sliding Scale -) 1 vial SQ ACHS [facility]; Protocol Last Admin: 11/19/17 16:57 Dose: 2 units Losartan Potassium (Cozaar -) 25 mg PO DAILY [facility] Last Admin: 11/19/17 10:16 Dose: Not Given Metoprolol Tartrate (Lopressor -) 50 mg PO BID [facility] Last Admin: 11/19/17 09:08 Dose: 50 mg Oxycodone HCl (Roxicodone -) 5 mg PO Q6H PRN PRN Reason: PAIN LEVEL 7 - 10 Pantoprazole Sodium (Protonix Iv) 40 mg IVPUSH DAILY [facility] Last Admin: 11/19/17 09:13 Dose: 40 mg Tramadol HCl (Ultram -) 50 mg PO Q8H PRN PRN Reason: PAIN LEVEL 4 - 6 - Objective Vital Signs: Vital Signs Temperature 98.1 F 11/19/17 14:00 Pulse Rate 108 H 11/19/17 14:00 Respiratory Rate 20 11/19/17 14:00 Blood Pressure 114/70 11/19/17 14:00 O2 Sat by Pulse Oximetry (%) 96 11/19/17 09:00 Constitutional: Yes: Well Nourished, No Distress, Calm Cardiovascular: Yes: Pulse Irregular Respiratory: Yes: Regular Gastrointestinal: Yes: Normal Bowel Sounds, Soft, Other (colostomy) Genitourinary: Yes: [place] Present Musculoskeletal: Yes: Muscle Weakness Neurological: Yes: Alert, Pre-Existing Deficit Psychiatric: Yes: Alert Labs: CBC, BMP 11/19/17 05:30 11/19/17 05:30 INR, PTT INR 1.32 (0.83-1.09) H 11/19/17 05:30 Problem List - Problems (1) Adrenal mass Assessment/Plan: -cont on decadron -seen by pneumatic press hand Code(s): E27.9 - DISORDER OF ADRENAL GLAND, UNSPECIFIED (2) Hydronephrosis Assessment/Plan: -R hydronephrosis -s/p R percutaneous nephrostomy tube -nephrology on board Code(s): N13.30 - UNSPECIFIED HYDRONEPHROSIS (3) Sepsis Assessment/Plan: -finished IV ABT -continue routine labs monitor CBC -pt afebrile, last lactic acid WNL Code(s): A41.9 - SEPSIS, UNSPECIFIED ORGANISM Qualifiers: Sepsis type: sepsis due to unspecified organism Qualified Code(s): A41.9 - Sepsis, unspecified organism (4) Supratherapeutic INR Assessment/Plan: -cardiology on board and consult appreciated -on IV heparin drip -warfarin 5 mg today- dose as per daily INR -PT/INR Daily Code(s): R79.1 - ABNORMAL COAGULATION PROFILE (5) Tachycardia Assessment/Plan: -cardiology on board -Losartan 25mg tab PO QD -cont with tele monitoring -already on BB and CCB Code(s): R00.0 - TACHYCARDIA, UNSPECIFIED (6) UTI (urinary tract infection) Assessment/Plan: -treated with ABT -ID on board -afebrile, asymptomatic Code(s): N39.0 - URINARY TRACT INFECTION, SITE NOT SPECIFIED Qualifiers: Urinary tract infection type: acute cystitis Hematuria presence: with hematuria Qualified Code(s): N30.01 - Acute cystitis with hematuria (7) Anemia Assessment/Plan: -serial CBC x 5 to monitor H/H -stool occult negative -iron profile shows iron deficiency, B12 and Thyroid unremarkable -Venofer Infusion x 1 yesterday Code(s): D64.9 - ANEMIA, UNSPECIFIED (8) Atrial fibrillation with rapid ventricular response Assessment/Plan: -tele monitoring -currently in NSR -cont with warfarin and adjust dose as needed -cardiology on board Code(s): I48.91 - UNSPECIFIED ATRIAL FIBRILLATION (9) CAD (coronary artery disease) Assessment/Plan: -on Plavix, ASA, and BB -lipid profile in AM -unsure why pt not on statin -re-start atorvastatin 40mg qhs Code(s): I25.10 - ATHSCL HEART DISEASE OF [place] CORONARY ARTERY W/O ANG PCTRS Qualifiers: Coronary Disease-Associated Artery/Lesion type: [place] artery [place] vs. 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
[2017-11-19] MEDS: oxyCODONE HCL 5 MG TABLET PO PRN (21:17)
[2017-11-19] MEDS: ATORVASTATIN CA 40 MG TABLET (FP) PO SCH (21:17)
[2017-11-19] MEDS ORDERED: WARFARIN NA 1 MG TABLET (FP) PO ONE (23:16)
[2017-11-20 06:40] LABS: INR 1.48 (0.83-1.09); PROTHROMBIN TIME (PATIENT) 17.5 SEC (9.7-13.0)
[2017-11-20 06:41] LABS: BASO % 0.6 % (0-2.0); EOS % 0.1 % (0-4.5); HEMATOCRIT 33.1 % (35.4-49); HEMOGLOBIN 10.5 GM/dL (11.7-16.9); LYMPH % 1.3 % (8-40); MCH 26.7 pg (25.7-33.7); MCHC 31.6 g/dl (32.0-35.9); MEAN CELL VOLUME 84.5 fl (80-96); MEAN PLT VOLUME 9.7 fl (7.5-11.1); MONO % 3.2 % (3.8-10.2); NEUT % 94.8 % (42.8-82.8); PLATELET COUNT 206 K/MM3 (134-434); RBC 3.92 M/mm3 (4.00-5.60); RDW 18.2 % (11.9-15.9); WHITE BLOOD COUNT 22.3 K/mm3 (4.0-10.0)
[2017-11-20 06:43] LABS: ACTIVATED PTT 47.4 SECONDS (25.2-36.5)
[2017-11-20 07:12] LABS: ALBUMIN 1.9 g/dl (3.4-5.0); ALK PHOS 271 U/L (45-117); ANION GAP 7 MMOL/L (8-16); BILIRUBIN,TOTAL 0.5 mg/dL (0.2-1); BLOOD UREA NITROGEN 29 mg/dL (7-18); CALCIUM 8.7 mg/dL (8.5-10.1); CHLORIDE 109 mmol/L (98-107); CO2 21 mmol/L (21-32); CREATININE 0.9 mg/dL (0.55-1.3); GLUCOSE,RANDOM 169 mg/dL (74-106); SGOT/AST 25 U/L (15-37); SGPT/ALT 49 U/L (13-61); SODIUM 137 mmol/L (136-145); TOT PROT 5.3 g/dl (6.4-8.2)
--- NOTE | 2017-11-20 08:20 | PN ---
Progress Note, Physician - Current Medication List Current Medications: Active Medications Acetaminophen (Tylenol -) 650 mg PO Q4H PRN PRN Reason: FEVER Acetaminophen (Tylenol -) 650 mg PO Q4H PRN PRN Reason: PAIN LEVEL 1 - 3 Aspirin (Ecotrin -) 81 mg PO DAILY [facility] Last Admin: 11/19/17 10:16 Dose: Not Given Atorvastatin Calcium (Lipitor -) 40 mg PO HS [facility] Last Admin: 11/19/17 21:17 Dose: 40 mg Clopidogrel Bisulfate (Plavix -) 75 mg PO DAILY [facility] Last Admin: 11/19/17 10:16 Dose: Not Given Dexamethasone (Decadron -) 4 mg PO BID [facility] Last Admin: 11/19/17 21:17 Dose: 4 mg Diltiazem HCl (Cardizem Injection -) 15 mg IVPUSH Q4H PRN PRN Reason: HEART RATE >140 Heparin Sodium (Porcine) (Heparin -) 1,000 unit IVPUSH PRN PRN PRN Reason: Heparin Heparin Sodium (Porcine) (Heparin -) 5,000 unit IVPUSH PRN PRN PRN Reason: Heparin Sodium Chloride (Normal Saline -) 1,000 mls @ 83 mls/hr IV ASDIR [facility] Last Admin: 11/19/17 23:27 Dose: 83 mls/hr Heparin Sodium (Porcine) 25, (000 unit/ Sodium Chloride) 500 mls @ 20 mls/hr IV TITR ANGELITA; Protocol Last Admin: 11/19/17 17:15 Dose: 1,000 unit/hr, 20 mls/hr Losartan Potassium (Cozaar -) 25 mg PO DAILY [facility] Last Admin: 11/19/17 10:16 Dose: Not Given Metoprolol Tartrate (Lopressor -) 50 mg PO BID [facility] Last Admin: 11/19/17 21:17 Dose: 50 mg Oxycodone HCl (Roxicodone -) 5 mg PO Q6H PRN PRN Reason: PAIN LEVEL 7 - 10 Last Admin: 11/19/17 21:17 Dose: 5 mg Pantoprazole Sodium (Protonix Iv) 40 mg IVPUSH DAILY [facility] Last Admin: 11/19/17 09:13 Dose: 40 mg Tramadol HCl (Ultram -) 50 mg PO Q8H PRN PRN Reason: PAIN LEVEL 4 - 6 - Objective Vital Signs: Vital Signs Temperature 98.1 F 11/20/17 06:00 Pulse Rate 111 H 11/20/17 06:00 Respiratory Rate 18 11/20/17 06:00 Blood Pressure 105/65 11/20/17 06:00 O2 Sat by Pulse Oximetry (%) 96 11/19/17 09:00 Cardiovascular: Yes: S1, S2 Respiratory: Yes: Regular, CTA Bilaterally Gastrointestinal: Yes: Normal Bowel Sounds, Soft, Abdomen, Obese Edema: No Neurological: Yes: Alert, Confusion Labs: CBC, BMP 11/20/17 05:30 11/20/17 05:30 INR, PTT INR 1.48 (0.83-1.09) H 11/20/17 05:30 Problem List - Problems (1) Adrenal mass Code(s): E27.9 - DISORDER OF ADRENAL GLAND, UNSPECIFIED (2) Sepsis Code(s): A41.9 - SEPSIS, UNSPECIFIED ORGANISM Qualifiers: Sepsis type: sepsis due to unspecified organism Qualified Code(s): A41.9 - Sepsis, unspecified organism (3) Atrial fibrillation Code(s): I48.91 - UNSPECIFIED ATRIAL FIBRILLATION Qualifiers: Atrial fibrillation type: persistent Qualified Code(s): I48.1 - Persistent atrial fibrillation (4) CAD (coronary artery disease) Code(s): I25.10 - ATHSCL HEART DISEASE OF [place] CORONARY ARTERY W/O ANG PCTRS Qualifiers: Coronary Disease-Associated Artery/Lesion type: [place] artery [place] vs. 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 Code(s): C67.9 - MALIGNANT NEOPLASM OF BLADDER, UNSPECIFIED; C78.7 - SECONDARY MALIG NEOPLASM OF LIVER AND INTRAHEPATIC BILE DUCT (7) Diabetes Code(s): E11.9 - TYPE 2 DIABETES MELLITUS WITHOUT COMPLICATIONS Assessment/Plan - Problems (1) Adrenal mass Assessment/Plan: -cont on decadron -seen by instructor private Code(s): E27.9 - DISORDER OF ADRENAL GLAND, UNSPECIFIED (2) Hydronephrosis Assessment/Plan: -R hydronephrosis -s/p R percutaneous nephrostomy tube -nephrology on board Code(s): N13.30 - UNSPECIFIED HYDRONEPHROSIS (3) Sepsis Assessment/Plan: -finished IV ABT -continue routine labs monitor CBC -pt afebrile, last lactic acid WNL Code(s): A41.9 - SEPSIS, UNSPECIFIED ORGANISM Qualifiers: Sepsis type: sepsis due to unspecified organism Qualified Code(s): A41.9 - Sepsis, unspecified organism (4) Supratherapeutic INR Assessment/Plan: -cardiology on board and consult appreciated -on IV heparin drip -warfarin 5 mg - dose as per daily INR -PT/INR Daily Code(s): R79.1 - ABNORMAL COAGULATION PROFILE (5) Tachycardia Assessment/Plan: -cardiology on board -cont with tele monitoring -already on BB and CCB Code(s): R00.0 - TACHYCARDIA, UNSPECIFIED (6) UTI (urinary tract infection) Assessment/Plan: -treated with ABT -ID on board -afebrile, asymptomatic Code(s): N39.0 - URINARY TRACT INFECTION, SITE NOT SPECIFIED Qualifiers: Urinary tract infection type: acute cystitis Hematuria presence: with hematuria Qualified Code(s): N30.01 - Acute cystitis with hematuria (7) Anemia Assessment/Plan: -serial CBC to monitor H/H -stool occult negative -iron profile shows iron deficiency, B12 and Thyroid unremarkable -Venofer Infusion x 1 yesterday Code(s): D64.9 - ANEMIA, UNSPECIFIED (8) Atrial fibrillation with rapid ventricular response Assessment/Plan: -tele monitoring -cont with warfarin and adjust dose as needed -cardiology on board Code(s): I48.91 - UNSPECIFIED ATRIAL FIBRILLATION (9) CAD (coronary artery disease) Assessment/Plan: -on Plavix, and BB -lipid profile in AM - atorvastatin 40mg qhs Code(s): I25.10 - ATHSCL HEART DISEASE OF [place] CORONARY ARTERY W/O ANG PCTRS Qualifiers: Coronary Disease-Associated Artery/Lesion type: [place] artery [place] vs. 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
[2017-11-20] MEDS: METOPROLOL TARTRATE 25 MG TABLET (FP) PO SCH ×2 (09:24→21:26)
[2017-11-20] MEDS: DEXAMETHASONE 4 MG TABLET (FP) PO SCH ×2 (09:25→21:26)
[2017-11-20] MEDS: CLOPIDOGREL BISULFATE 75 MG TABLET (FP) PO SCH (09:25)
[2017-11-20] MEDS: ASPIRIN COATED 81 MG TABLET.EC PO SCH (09:25)
[2017-11-20] MEDS: PANTOPRAZOLE SODIUM 40 MG VIAL IVPUSH SCH (09:25)
[2017-11-20] MEDS: LOSARTAN POTASSIUM 25 MG TABLET PO SCH (09:25)
[2017-11-20] MEDS: traMADol HCL 50 MG TABLET PO PRN ×2 (09:30→17:19)
[2017-11-20 11:10] LABS: PLATELET ESTIMATE NORMAL
[2017-11-20] MEDS: HEPARIN - 25,000 UNIT in SODIUM CHLORIDE 495 ML IV SCH ×2 (11:21→21:27)
--- NOTE | 2017-11-20 15:46 | PN ---
Progress Note, Physician History of Present Illness: Pt seen and examined at bedside. He is awake and alert. He denies shortness of breath or palpitations. - Current Medication List Current Medications: Active Medications Acetaminophen (Tylenol -) 650 mg PO Q4H PRN PRN Reason: FEVER Acetaminophen (Tylenol -) 650 mg PO Q4H PRN PRN Reason: PAIN LEVEL 1 - 3 Aspirin (Ecotrin -) 81 mg PO DAILY [facility] Last Admin: 11/20/17 09:25 Dose: 81 mg Atorvastatin Calcium (Lipitor -) 40 mg PO HS [facility] Last Admin: 11/19/17 21:17 Dose: 40 mg Clopidogrel Bisulfate (Plavix -) 75 mg PO DAILY [facility] Last Admin: 11/20/17 09:25 Dose: 75 mg Dexamethasone (Decadron -) 4 mg PO BID [facility] Last Admin: 11/20/17 09:25 Dose: 4 mg Heparin Sodium (Porcine) (Heparin -) 1,000 unit IVPUSH PRN PRN PRN Reason: Heparin Last Admin: 11/20/17 11:23 Dose: 1,000 unit Heparin Sodium (Porcine) (Heparin -) 5,000 unit IVPUSH PRN PRN PRN Reason: Heparin Sodium Chloride (Normal Saline -) 1,000 mls @ 83 mls/hr IV ASDIR [facility] Last Admin: 11/19/17 23:27 Dose: 83 mls/hr Heparin Sodium (Porcine) 25, (000 unit/ Sodium Chloride) 500 mls @ 20 mls/hr IV TITR ANGELITA; Protocol Last Admin: 11/20/17 11:21 Dose: 1,100 unit/hr, 22 mls/hr Losartan Potassium (Cozaar -) 25 mg PO DAILY [facility] Last Admin: 11/20/17 09:25 Dose: 25 mg Metoprolol Tartrate (Lopressor -) 75 mg PO BID [facility] Last Admin: 11/20/17 09:24 Dose: 75 mg Metoprolol Tartrate (Lopressor Injection -) 5 mg IVPUSH Q4H PRN PRN Reason: HYPERTENSION Oxycodone HCl (Roxicodone -) 5 mg PO Q6H PRN PRN Reason: PAIN LEVEL 7 - 10 Last Admin: 11/19/17 21:17 Dose: 5 mg Pantoprazole Sodium (Protonix Iv) 40 mg IVPUSH DAILY [facility] Last Admin: 11/20/17 09:25 Dose: 40 mg Tramadol HCl (Ultram -) 50 mg PO Q8H PRN PRN Reason: PAIN LEVEL 4 - 6 Last Admin: 11/20/17 09:30 Dose: 50 mg Warfarin Sodium (Coumadin -) 5 mg PO DAILY@1800 ANGELITA - Objective Vital Signs: Vital Signs Temperature 97.1 F L 11/20/17 14:00 Pulse Rate 85 11/20/17 14:00 Respiratory Rate 20 11/20/17 14:00 Blood Pressure 86/51 L 11/20/17 14:00 O2 Sat by Pulse Oximetry (%) 96 11/19/17 09:00 Constitutional: Yes: Calm Eyes: Yes: Conjunctiva Clear HENT: Yes: Atraumatic Cardiovascular: Yes: S1, S2 Respiratory: Yes: CTA Bilaterally Gastrointestinal: Yes: Soft Genitourinary: Yes: Hematuria, Other (ileal conduit, nephrostomy) Edema: No Neurological: Yes: Oriented Psychiatric: Yes: Oriented Labs: CBC, BMP 11/20/17 05:30 11/20/17 05:30 INR, PTT INR 1.48 (0.83-1.09) H 11/20/17 05:30 Problem List - Problems (1) Hydronephrosis Code(s): N13.30 - UNSPECIFIED HYDRONEPHROSIS (2) Sepsis Code(s): A41.9 - SEPSIS, UNSPECIFIED ORGANISM Qualifiers: Sepsis type: sepsis due to unspecified organism Qualified Code(s): A41.9 - Sepsis, unspecified organism (3) UTI (urinary tract infection) Code(s): N39.0 - URINARY TRACT INFECTION, SITE NOT SPECIFIED Qualifiers: Urinary tract infection type: acute cystitis Hematuria presence: with hematuria Qualified Code(s): N30.01 - Acute cystitis with hematuria (4) Renal dysfunction Code(s): N28.9 - DISORDER OF KIDNEY AND URETER, UNSPECIFIED Assessment/Plan Current Medications Generic Name Dose Route Start Last Admin Trade Name Freq PRN Reason Stop Dose Admin Acetaminophen 650 mg 11/18/17 16:59 Tylenol - PO Q4H PRN FEVER Acetaminophen 650 mg 11/18/17 16:59 Tylenol - PO Q4H PRN PAIN LEVEL 1 - 3 Aspirin 81 mg 11/18/17 10:00 11/20/17 09:25 Ecotrin - PO 81 mg DAILY ANGELITA Administration Atorvastatin Calcium 40 mg 11/18/17 22:00 11/19/17 21:17 Lipitor - PO 40 mg HS ANGELITA Administration Clopidogrel Bisulfate 75 mg 11/18/17 10:00 11/20/17 09:25 Plavix - PO 75 mg DAILY ANGELITA Administration Dexamethasone 4 mg 11/17/17 22:00 11/20/17 09:25 Decadron - PO 4 mg BID ANGELITA Administration Heparin Sodium (Porcine) 1,000 unit 11/18/17 16:20 11/20/17 11:23 Heparin - IVPUSH 1,000 unit PRN PRN Administration Heparin Heparin Sodium (Porcine) 5,000 unit 11/18/17 16:20 Heparin - IVPUSH PRN PRN Heparin Sodium Chloride 1,000 mls @ 83 mls/hr 11/17/17 17:02 11/19/17 23:27 Normal Saline - IV 83 mls/hr ASDIR ANGELITA Administration Heparin Sodium (Porcine) 25, 500 mls @ 20 mls/hr 11/18/17 16:30 11/20/17 11: 21 000 unit/ Sodium Chloride IV 1,100 unit/hr TITR ANGELITA 22 mls/hr Administration Protocol 1,000 UNIT/HR Losartan Potassium 25 mg 11/18/17 16:30 11/20/17 09:25 Cozaar - PO 25 mg DAILY [facility] Administration Metoprolol Tartrate 75 mg 11/20/17 10:00 11/20/17 09:24 Lopressor - PO 75 mg BID [facility] Administration Metoprolol Tartrate 5 mg 11/20/17 08:47 Lopressor Injection - IVPUSH Q4H PRN HYPERTENSION Oxycodone HCl 5 mg 11/18/17 17:02 11/19/17 21:17 Roxicodone - PO 5 mg Q6H PRN Administration PAIN LEVEL 7 - 10 Pantoprazole Sodium 40 mg 11/18/17 10:00 11/20/17 09:25 Protonix Iv IVPUSH 40 mg DAILY [facility] Administration Tramadol HCl 50 mg 11/18/17 17:01 11/20/17 09:30 Ultram - PO 50 mg Q8H PRN Administration PAIN LEVEL 4 - 6 Warfarin Sodium 5 mg 11/20/17 18:00 Coumadin - PO DAILY@1800 [facility] Impression 1. CKD 2. altered mental status 3. a-fib 4. DM 5. HTN 6. hx bladder cancer 7. leukocytosis 8. sepsis 9. hyperkalemia 10. chon Plan - renal function is stable - urology follow up - monitor lytes - cardio follow up - no acute change in management from renal standpoint - will follow PRN Dr Baltazar
[2017-11-20] MEDS: WARFARIN NA 5 MG TABLET (UD) PO SCH (17:02)
--- NOTE | 2017-11-20 17:16 | PN ---
Progress Note, Physician Chief Complaint: Pt is asymptomatic.; disoriented to time, place. 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 As per EMS the patients systolic was noted to be in the 60s and they placed a PIV and started a liter of NS prior to arrival in the emergency department. The patient denies chest pain, shortness of breath, headache and dizziness. Denies fever, chills, nausea, vomit, diarrhea and constipation. Denies dysuria, frequency, urgency and hematuria. - Current Medication List Current Medications: Active Medications Acetaminophen (Tylenol -) 650 mg PO Q4H PRN PRN Reason: FEVER Acetaminophen (Tylenol -) 650 mg PO Q4H PRN PRN Reason: PAIN LEVEL 1 - 3 Aspirin (Ecotrin -) 81 mg PO DAILY [facility] Last Admin: 11/20/17 09:25 Dose: 81 mg Atorvastatin Calcium (Lipitor -) 40 mg PO HS [facility] Last Admin: 11/19/17 21:17 Dose: 40 mg Clopidogrel Bisulfate (Plavix -) 75 mg PO DAILY [facility] Last Admin: 11/20/17 09:25 Dose: 75 mg Dexamethasone (Decadron -) 4 mg PO BID [facility] Last Admin: 11/20/17 09:25 Dose: 4 mg Heparin Sodium (Porcine) (Heparin -) 1,000 unit IVPUSH PRN PRN PRN Reason: Heparin Last Admin: 11/20/17 11:23 Dose: 1,000 unit Heparin Sodium (Porcine) (Heparin -) 5,000 unit IVPUSH PRN PRN PRN Reason: Heparin Sodium Chloride (Normal Saline -) 1,000 mls @ 83 mls/hr IV ASDIR [facility] Last Admin: 11/19/17 23:27 Dose: 83 mls/hr Heparin Sodium (Porcine) 25, (000 unit/ Sodium Chloride) 500 mls @ 20 mls/hr IV TITR ANGELITA; Protocol Last Admin: 11/20/17 11:21 Dose: 1,100 unit/hr, 22 mls/hr Losartan Potassium (Cozaar -) 25 mg PO DAILY [facility] Last Admin: 10/12/18 09:25 Dose: 25 mg Metoprolol Tartrate (Lopressor -) 75 mg PO BID [facility] Last Admin: 11/20/17 09:24 Dose: 75 mg Metoprolol Tartrate (Lopressor Injection -) 5 mg IVPUSH Q4H PRN PRN Reason: HYPERTENSION Oxycodone HCl (Roxicodone -) 5 mg PO Q6H PRN PRN Reason: PAIN LEVEL 7 - 10 Last Admin: 11/19/17 21:17 Dose: 5 mg Pantoprazole Sodium (Protonix Iv) 40 mg IVPUSH DAILY [facility] Last Admin: 11/20/17 09:25 Dose: 40 mg Tramadol HCl (Ultram -) 50 mg PO Q8H PRN PRN Reason: PAIN LEVEL 4 - 6 Last Admin: 11/20/17 09:30 Dose: 50 mg Warfarin Sodium (Coumadin -) 5 mg PO DAILY@1800 [facility] Last Admin: 11/20/17 17:02 Dose: 5 mg - Objective Vital Signs: Vital Signs Temperature 97.1 F L 11/20/17 14:00 Pulse Rate 85 11/20/17 14:00 Respiratory Rate 20 11/20/17 14:00 Blood Pressure 86/51 L 11/20/17 14:00 O2 Sat by Pulse Oximetry (%) 96 11/19/17 09:00 Constitutional: Yes: Calm Eyes: Yes: WNL Cardiovascular: Yes: S1 (varies in intensity) Labs: CBC, BMP 11/20/17 05:30 11/20/17 05:30 INR, PTT INR 1.48 (0.83-1.09) H 11/20/17 05:30 Problem List - Problems (1) Sepsis Assessment/Plan: Now off antibiotics. Code(s): A41.9 - SEPSIS, UNSPECIFIED ORGANISM Qualifiers: Sepsis type: sepsis due to unspecified organism Qualified Code(s): A41.9 - Sepsis, unspecified organism (2) Anemia Assessment/Plan: f/u Hb (12.1-->10.4 over the past 24 hours); post percutaneous nephrostomy 11/16. +hematuria. Now on anticoagulation (IV heparin until warfarin-->INR 2-3) Hb stable. ASA and clopidogrel held due to hematuria. Code(s): D64.9 - ANEMIA, UNSPECIFIED (3) Anxiety Code(s): F41.9 - ANXIETY DISORDER, UNSPECIFIED (4) Atrial fibrillation with rapid ventricular response Assessment/Plan: On metoprolol; dose increased to 75 mg bid for AF/flutter with recent rapid ventricular rate. Severely reduced LVEF: avoid diltiazem or verapamil. 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 f/u with oncologist, . Code(s): C67.9 - MALIGNANT NEOPLASM OF BLADDER, UNSPECIFIED; C78.00 - SECONDARY MALIGNANT NEOPLASM OF UNSPECIFIED LUNG (6) CAD (coronary artery disease) Code(s): I25.10 - ATHSCL HEART DISEASE OF [place] CORONARY ARTERY W/O ANG PCTRS Qualifiers: Coronary Disease-Associated Artery/Lesion type: [place] artery [place] vs. transplanted heart: [place] heart Associated angina: without angina Qualified Code(s): I25.10 - Atherosclerotic heart disease of [place] coronary artery without angina pectoris (7) Cardiomyopathy Code(s): I42.9 - CARDIOMYOPATHY, UNSPECIFIED Qualifiers: Cardiomyopathy type: ischemic Qualified Code(s): I25.5 - Ischemic cardiomyopathy (8) Chronic systolic (congestive) heart failure Assessment/Plan: On metoprolol for HR control (AF) and systolic CHF. Started ARB (losartan 25 mg daily). Add aldactone later if BP, renal function, and electrolytes allow. F/u BUN/Cr, Is and Os, daily weight, electrolytes. Code(s): I50.22 - CHRONIC SYSTOLIC (CONGESTIVE) HEART FAILURE (9) Hyperlipidemia Code(s): E78.5 - HYPERLIPIDEMIA, UNSPECIFIED Qualifiers: Hyperlipidemia type: pure hypercholesterolemia Qualified Code(s): E78.00 - Pure hypercholesterolemia, unspecified; E78.0 - Pure hypercholesterolemia (10) Hypertension Code(s): I10 - ESSENTIAL (PRIMARY) HYPERTENSION Qualifiers: Hypertension type: essential hypertension Qualified Code(s): I10 - Essential (primary) hypertension (11) S/P coronary artery stent placement Code(s): Z95.5 - PRESENCE OF CORONARY ANGIOPLASTY IMPLANT AND GRAFT (12) Supratherapeutic INR Code(s): R79.1 - ABNORMAL COAGULATION PROFILE (13) Hypokalemia Code(s): E87.6 - HYPOKALEMIA
[2017-11-20] MEDS: SODIUM CHLORIDE 1,000 ML IV SCH (18:42)
[2017-11-20] MEDS: ATORVASTATIN CA 40 MG TABLET (FP) PO SCH (21:26)
--- NOTE | 2017-11-20 22:08 | PN ---
Progress Note (short form) - Note Progress Note: sitting in bed comfortable no chest pain ,no complaint Current Active Problems HEYDI (acute kidney injury) (Acute) Adrenal mass (Acute) Hydronephrosis (Acute) Hypokalemia (Acute) Sepsis (Acute) Supratherapeutic INR (Acute) Tachycardia (Acute) UTI (urinary tract infection) (Acute) Abnormal Lab Results 11/20/17 11/20/17 11/20/17 05:30 05:30 05:30 WBC 22.3 H RBC 3.92 L Hgb 10.5 L Hct 33.1 L MCHC 31.6 L RDW 18.2 H Absolute Neuts (auto) 21.2 H Neutrophils % 94.8 H Neutrophils % (Manual) 96.0 H Lymphocytes % 1.3 L Lymphocytes % (Manual) 2.0 L D Monocytes % 3.2 L Monocytes % (Manual) 2 L PT with INR 17.50 H INR 1.48 H PTT (Actin FS) 47.4 H Chloride 109 H Anion Gap 7 L BUN 29 H Random Glucose 169 H Alkaline Phosphatase 271 H Total Protein 5.3 L Albumin 1.9 L 11/20/17 17:40 WBC RBC Hgb Hct MCHC RDW Absolute Neuts (auto) Neutrophils % Neutrophils % (Manual) Lymphocytes % Lymphocytes % (Manual) Monocytes % Monocytes % (Manual) PT with INR INR PTT (Actin FS) 74.1 H Chloride Anion Gap BUN Random Glucose Alkaline Phosphatase Total Protein Albumin plan: check tsh free t4 free t4 by dd ck cortisol level medrol 3mgbid Problem List - Problems (1) HEYDI (acute kidney injury) Code(s): N17.9 - ACUTE KIDNEY FAILURE, UNSPECIFIED (2) Adrenal mass Code(s): E27.9 - DISORDER OF ADRENAL GLAND, UNSPECIFIED (3) Hydronephrosis Code(s): N13.30 - UNSPECIFIED HYDRONEPHROSIS (4) Sepsis Code(s): A41.9 - SEPSIS, UNSPECIFIED ORGANISM Qualifiers: Sepsis type: sepsis due to unspecified organism Qualified Code(s): A41.9 - Sepsis, unspecified organism (5) Supratherapeutic INR Code(s): R79.1 - ABNORMAL COAGULATION PROFILE (6) Anemia Code(s): D64.9 - ANEMIA, UNSPECIFIED (7) Anxiety Code(s): F41.9 - ANXIETY DISORDER, UNSPECIFIED
[2017-11-21] MEDS: METOPROLOL TARTRATE 5 MG/5 ML VIAL IVPUSH PRN (04:57)
[2017-11-21 07:08] LABS: BASO % 0.2 % (0-2.0); EOS % 0.1 % (0-4.5); HEMATOCRIT 32.2 % (35.4-49); HEMOGLOBIN 10.2 GM/dL (11.7-16.9); LYMPH % 1.5 % (8-40); MCH 26.8 pg (25.7-33.7); MCHC 31.7 g/dl (32.0-35.9); MEAN CELL VOLUME 84.8 fl (80-96); MEAN PLT VOLUME 9.6 fl (7.5-11.1); MONO % 3.7 % (3.8-10.2); NEUT % 94.5 % (42.8-82.8); PLATELET COUNT 180 K/MM3 (134-434); RDW 18.6 % (11.9-15.9); WHITE BLOOD COUNT 19.9 K/mm3 (4.0-10.0)
[2017-11-21 07:27] LABS: INR 1.79 (0.83-1.09); PROTHROMBIN TIME (PATIENT) 21.2 SEC (9.7-13.0)
[2017-11-21 07:30] LABS: ACTIVATED PTT 55.3 SECONDS (25.2-36.5)
[2017-11-21] MEDS: traMADol HCL 50 MG TABLET PO PRN ×2 (08:53→22:40)
[2017-11-21 08:55] LABS: ALBUMIN 1.9 g/dl (3.4-5.0); ALK PHOS 271 U/L (45-117); ANION GAP 10 MMOL/L (8-16); BLOOD UREA NITROGEN 29 mg/dL (7-18); CALCIUM 8.7 mg/dL (8.5-10.1); CHLORIDE 109 mmol/L (98-107); CO2 21 mmol/L (21-32); CREATININE 0.8 mg/dL (0.55-1.3); GLUCOSE,RANDOM 163 mg/dL (74-106); POTASSIUM 4.1 mmol/L (3.5-5.1); SGOT/AST 21 U/L (15-37); SGPT/ALT 51 U/L (13-61); SODIUM 139 mmol/L (136-145); TOT PROT 5.3 g/dl (6.4-8.2)
[2017-11-21] MEDS ORDERED: PT OWN MED DRAWER 7, Y5N ONE ×3 (09:19→21:36)
--- NOTE | 2017-11-21 09:20 | PN ---
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 He is on tele for rapid atrial fibrillation. - Current Medication List Current Medications: Active Medications Acetaminophen (Tylenol -) 650 mg PO Q4H PRN PRN Reason: FEVER Acetaminophen (Tylenol -) 650 mg PO Q4H PRN PRN Reason: PAIN LEVEL 1 - 3 Aspirin (Ecotrin -) 81 mg PO DAILY [facility] Last Admin: 11/20/17 09:25 Dose: 81 mg Atorvastatin Calcium (Lipitor -) 40 mg PO HS [facility] Last Admin: 11/20/17 21:26 Dose: 40 mg Clopidogrel Bisulfate (Plavix -) 75 mg PO DAILY [facility] Last Admin: 11/20/17 09:25 Dose: 75 mg Dexamethasone (Decadron -) 3 mg PO BID [facility] Heparin Sodium (Porcine) (Heparin -) 1,000 unit IVPUSH PRN PRN PRN Reason: Heparin Last Admin: 11/20/17 11:23 Dose: 1,000 unit Heparin Sodium (Porcine) (Heparin -) 5,000 unit IVPUSH PRN PRN PRN Reason: Heparin Sodium Chloride (Normal Saline -) 1,000 mls @ 83 mls/hr IV ASDIR [facility] Last Admin: 11/20/17 18:42 Dose: Not Given Heparin Sodium (Porcine) 25, (000 unit/ Sodium Chloride) 500 mls @ 20 mls/hr IV TITR ANGELITA; Protocol Last Admin: 11/20/17 21:27 Dose: Not Given Losartan Potassium (Cozaar -) 25 mg PO DAILY [facility] Last Admin: 11/20/17 09:25 Dose: 25 mg Metoprolol Tartrate (Lopressor -) 75 mg PO BID [facility] Last Admin: 11/20/17 21:26 Dose: 75 mg Metoprolol Tartrate (Lopressor Injection -) 5 mg IVPUSH Q4H PRN PRN Reason: HYPERTENSION Last Admin: 11/21/17 04:57 Dose: 5 mg Oxycodone HCl (Roxicodone -) 5 mg PO Q6H PRN PRN Reason: PAIN LEVEL 7 - 10 Last Admin: 11/19/17 21:17 Dose: 5 mg Pantoprazole Sodium (Protonix Iv) 40 mg IVPUSH DAILY [facility] Last Admin: 11/20/17 09:25 Dose: 40 mg Tramadol HCl (Ultram -) 50 mg PO Q8H PRN PRN Reason: PAIN LEVEL 4 - 6 Last Admin: 11/21/17 08:53 Dose: 50 mg Warfarin Sodium (Coumadin -) 5 mg PO DAILY@1800 [facility] Last Admin: 11/20/17 17:02 Dose: 5 mg - Objective Vital Signs: Vital Signs Temperature 97.5 F L 11/21/17 05:00 Pulse Rate 152 H 11/21/17 05:00 Respiratory Rate 17 11/21/17 05:00 Blood Pressure 98/62 11/21/17 05:00 O2 Sat by Pulse Oximetry (%) 96 11/20/17 21:00 Constitutional: Yes: No Distress, Calm Cardiovascular: Yes: Tachycardia, Pulse Irregular Respiratory: Yes: CTA Bilaterally Gastrointestinal: Yes: Soft Edema: No Neurological: Yes: Alert Labs: CBC, BMP 11/21/17 05:30 11/21/17 05:30 INR, PTT INR 1.79 (0.83-1.09) H 11/21/17 05:30 Microbiology 11/05/17 08:55 Urine - Urine - Catheterized Urine Culture - Final Pseudomonas Aeruginosa 11/05/17 08:55 Blood - Peripheral Venous Blood Culture - Final NO GROWTH AFTER 5 DAYS INCUBATION 11/05/17 08:55 Blood - Peripheral Venous Blood Culture - Final NO GROWTH AFTER 5 DAYS INCUBATION Laboratory Tests 11/21/17 11/21/17 11/21/17 05:30 05:30 05:30 WBC 19.9 H Hgb 10.2 L Hct 32.2 L Plt Count 180 INR 1.79 H PTT (Actin FS) 55.3 H Sodium 139 Potassium 4.1 Chloride 109 H Carbon Dioxide 21 Anion Gap 10 BUN 29 H Creatinine 0.8 Creat Clearance w eGFR > 60 TSH 0.32 L D Free T4 11/21/17 05:30 WBC Hgb Hct Plt Count INR PTT (Actin FS) Sodium Potassium Chloride Carbon Dioxide Anion Gap BUN Creatinine Creat Clearance w eGFR TSH Free T4 1.28 H - ....Imaging EKG: Image Reviewed Assessment/Plan IMP: AF w/ RVR Cardiomyopathy w/ severely reduced LVEF CAD Urosepsis, on admission REC: 1. Needs rate control optimization: titrate Lopressor 100mg BID 2. Continue telemetry as meds titrated 3. Hep---> coumadin for INR 2-3. 4. Clarify timing of coronary PCI: if > than one month, can continue Warfarin ( for AF) + Clopidogrel and d/c ASA.
[2017-11-21] MEDS: ASPIRIN COATED 81 MG TABLET.EC PO SCH (10:09)
[2017-11-21] MEDS: LOSARTAN POTASSIUM 25 MG TABLET PO SCH (10:09)
[2017-11-21] MEDS: DEXAMETHASONE 1.5 MG TABLET PO SCH ×2 (10:09→22:40)
[2017-11-21] MEDS: CLOPIDOGREL BISULFATE 75 MG TABLET (FP) PO SCH (10:09)
[2017-11-21] MEDS: PANTOPRAZOLE SODIUM 40 MG VIAL IVPUSH SCH (10:10)
[2017-11-21] MEDS: METOPROLOL TARTRATE 50 MG TABLET (FP) PO SCH ×2 (10:11→22:40)
--- NOTE | 2017-11-21 11:00 | PN ---
Progress Note, Physician - Current Medication List Current Medications: Active Medications Acetaminophen (Tylenol -) 650 mg PO Q4H PRN PRN Reason: FEVER Acetaminophen (Tylenol -) 650 mg PO Q4H PRN PRN Reason: PAIN LEVEL 1 - 3 Aspirin (Ecotrin -) 81 mg PO DAILY [facility] Last Admin: 11/21/17 10:09 Dose: 81 mg Atorvastatin Calcium (Lipitor -) 40 mg PO HS [facility] Last Admin: 11/20/17 21:26 Dose: 40 mg Clopidogrel Bisulfate (Plavix -) 75 mg PO DAILY [facility] Last Admin: 11/21/17 10:09 Dose: 75 mg Dexamethasone (Decadron -) 3 mg PO BID [facility] Last Admin: 11/21/17 10:09 Dose: 3 mg Heparin Sodium (Porcine) (Heparin -) 1,000 unit IVPUSH PRN PRN PRN Reason: Heparin Last Admin: 11/20/17 11:23 Dose: 1,000 unit Heparin Sodium (Porcine) (Heparin -) 5,000 unit IVPUSH PRN PRN PRN Reason: Heparin Sodium Chloride (Normal Saline -) 1,000 mls @ 83 mls/hr IV ASDIR [facility] Last Admin: 11/20/17 18:42 Dose: Not Given Heparin Sodium (Porcine) 25, (000 unit/ Sodium Chloride) 500 mls @ 20 mls/hr IV TITR [facility]GELITA; Protocol Last Admin: 11/20/17 21:27 Dose: Not Given Losartan Potassium (Cozaar -) 25 mg PO DAILY [facility] Last Admin: 11/21/17 10:09 Dose: 25 mg Metoprolol Tartrate (Lopressor Injection -) 5 mg IVPUSH Q4H PRN PRN Reason: HYPERTENSION Last Admin: 11/21/17 04:57 Dose: 5 mg Metoprolol Tartrate (Lopressor -) 100 mg PO BID [facility] Last Admin: 11/21/17 10:11 Dose: 100 mg Oxycodone HCl (Roxicodone -) 5 mg PO Q6H PRN PRN Reason: PAIN LEVEL 7 - 10 Last Admin: 11/19/17 21:17 Dose: 5 mg Pantoprazole Sodium (Protonix Iv) 40 mg IVPUSH DAILY [facility] Last Admin: 11/21/17 10:10 Dose: 40 mg Tramadol HCl (Ultram -) 50 mg PO Q8H PRN PRN Reason: PAIN LEVEL 4 - 6 Last Admin: 11/21/17 08:53 Dose: 50 mg Warfarin Sodium (Coumadin -) 5 mg PO DAILY@1800 [facility] Last Admin: 11/20/17 17:02 Dose: 5 mg - Objective Vital Signs: Vital Signs Temperature 97.9 F 11/21/17 10:00 Pulse Rate 108 H 11/21/17 10:00 Respiratory Rate 17 11/21/17 10:00 Blood Pressure 114/55 L 11/21/17 10:00 O2 Sat by Pulse Oximetry (%) 95 11/21/17 09:00 Cardiovascular: Yes: S1, S2 Respiratory: Yes: Regular, CTA Bilaterally Gastrointestinal: Yes: Normal Bowel Sounds, Soft Labs: CBC, BMP 11/21/17 05:30 11/21/17 05:30 INR, PTT INR 1.79 (0.83-1.09) H 11/21/17 05:30 Problem List - Problems (1) Adrenal mass Code(s): E27.9 - DISORDER OF ADRENAL GLAND, UNSPECIFIED (2) Sepsis Code(s): A41.9 - SEPSIS, UNSPECIFIED ORGANISM Qualifiers: Sepsis type: sepsis due to unspecified organism Qualified Code(s): A41.9 - Sepsis, unspecified organism (3) Atrial fibrillation Code(s): I48.91 - UNSPECIFIED ATRIAL FIBRILLATION Qualifiers: Atrial fibrillation type: persistent Qualified Code(s): I48.1 - Persistent atrial fibrillation (4) CAD (coronary artery disease) Code(s): I25.10 - ATHSCL HEART DISEASE OF [place] CORONARY ARTERY W/O ANG PCTRS Qualifiers: Coronary Disease-Associated Artery/Lesion type: [place] artery [place] vs. 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 Code(s): C67.9 - MALIGNANT NEOPLASM OF BLADDER, UNSPECIFIED; C78.7 - SECONDARY MALIG NEOPLASM OF LIVER AND INTRAHEPATIC BILE DUCT (7) Diabetes Code(s): E11.9 - TYPE 2 DIABETES MELLITUS WITHOUT COMPLICATIONS Assessment/Plan - Problems (1) Adrenal mass Assessment/Plan: -cont on decadron -seen by boom stick man Code(s): E27.9 - DISORDER OF ADRENAL GLAND, UNSPECIFIED (2) Hydronephrosis Assessment/Plan: -R hydronephrosis -s/p R percutaneous nephrostomy tube -nephrology on board Code(s): N13.30 - UNSPECIFIED HYDRONEPHROSIS (3) Sepsis Assessment/Plan: -finished IV ABT -continue routine labs monitor CBC -pt afebrile, last lactic acid WNL Code(s): A41.9 - SEPSIS, UNSPECIFIED ORGANISM Qualifiers: Sepsis type: sepsis due to unspecified organism Qualified Code(s): A41.9 - Sepsis, unspecified organism (4) Supratherapeutic INR Assessment/Plan: -cardiology on board and consult appreciated -on IV heparin drip -warfarin 5 mg - dose as per daily INR -PT/INR Daily Code(s): R79.1 - ABNORMAL COAGULATION PROFILE (5) Tachycardia Assessment/Plan: -cardiology on board -cont with tele monitoring -already on BB and CCB Code(s): R00.0 - TACHYCARDIA, UNSPECIFIED (6) UTI (urinary tract infection) Assessment/Plan: -treated with ABT -ID on board -afebrile, asymptomatic Code(s): N39.0 - URINARY TRACT INFECTION, SITE NOT SPECIFIED Qualifiers: Urinary tract infection type: acute cystitis Hematuria presence: with hematuria Qualified Code(s): N30.01 - Acute cystitis with hematuria (7) Anemia Assessment/Plan: -serial CBC to monitor H/H -stool occult negative -iron profile shows iron deficiency, B12 and Thyroid unremarkable -Venofer Infusion x 1 yesterday Code(s): D64.9 - ANEMIA, UNSPECIFIED (8) Atrial fibrillation with rapid ventricular response Assessment/Plan: -tele monitoring -cont with warfarin and adjust dose as needed -cardiology on board Code(s): I48.91 - UNSPECIFIED ATRIAL FIBRILLATION (9) CAD (coronary artery disease) Assessment/Plan: -on Plavix, and BB -lipid profile in AM - atorvastatin 40mg qhs Code(s): I25.10 - ATHSCL HEART DISEASE OF [place] CORONARY ARTERY W/O ANG PCTRS Qualifiers: Coronary Disease-Associated Artery/Lesion type: [place] artery [place] vs. 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
[2017-11-21 11:22] LABS: ANISOCYTOSIS 1+; MACROCYTOSIS 0; PLATELET ESTIMATE NORMAL
[2017-11-21] MEDS: HEPARIN - 25,000 UNIT in SODIUM CHLORIDE 495 ML IV SCH (16:35)
[2017-11-21] MEDS: SODIUM CHLORIDE 1,000 ML IV SCH (17:19)
[2017-11-21] MEDS: WARFARIN NA 5 MG TABLET (UD) PO SCH (17:20)
[2017-11-21] MEDS: ATORVASTATIN CA 40 MG TABLET (FP) PO SCH (22:40)
[2017-11-22 07:29] LABS: BASO % 0.1 % (0-2.0); EOS % 0.2 % (0-4.5); HEMOGLOBIN 10.6 GM/dL (11.7-16.9); LYMPH % 1.4 % (8-40); MCH 27.4 pg (25.7-33.7); MCHC 32.1 g/dl (32.0-35.9); MEAN CELL VOLUME 85.2 fl (80-96); MEAN PLT VOLUME 10.1 fl (7.5-11.1); MONO % 2.5 % (3.8-10.2); NEUT % 95.8 % (42.8-82.8); PLATELET COUNT 167 K/MM3 (134-434); RBC 3.87 M/mm3 (4.00-5.60)
[2017-11-22 07:40] LABS: INR 2.83 (0.83-1.09); PROTHROMBIN TIME (PATIENT) 33.7 SEC (9.7-13.0)
[2017-11-22 07:42] LABS: ACTIVATED PTT 64.6 SECONDS (25.2-36.5)
[2017-11-22 08:13] LABS: ALBUMIN 1.8 g/dl (3.4-5.0); ALK PHOS 296 U/L (45-117); ANION GAP 9 MMOL/L (8-16); BILIRUBIN,TOTAL 0.6 mg/dL (0.2-1); BLOOD UREA NITROGEN 31 mg/dL (7-18); CALCIUM 8.8 mg/dL (8.5-10.1); CHLORIDE 112 mmol/L (98-107); CO2 22 mmol/L (21-32); CREATININE 0.9 mg/dL (0.55-1.3); GLUCOSE,RANDOM 146 mg/dL (74-106); POTASSIUM 4.2 mmol/L (3.5-5.1); SGOT/AST 30 U/L (15-37); SGPT/ALT 55 U/L (13-61); SODIUM 142 mmol/L (136-145); TOT PROT 5.2 g/dl (6.4-8.2)
--- NOTE | 2017-11-22 09:11 | PN ---
Progress Note, Physician Chief Complaint: Cardiology Coverage for Jenny Alert, no distress TELE: AF with average rate now approximately 100bpm over last 10 hours. Much improved. History of Present Illness: Denies CP, SOB or palpitations - Current Medication List Current Medications: Active Medications Acetaminophen (Tylenol -) 650 mg PO Q4H PRN PRN Reason: FEVER Acetaminophen (Tylenol -) 650 mg PO Q4H PRN PRN Reason: PAIN LEVEL 1 - 3 Aspirin (Ecotrin -) 81 mg PO DAILY [facility] Last Admin: 11/21/17 10:09 Dose: 81 mg Atorvastatin Calcium (Lipitor -) 40 mg PO HS [facility] Last Admin: 11/21/17 22:40 Dose: 40 mg Clopidogrel Bisulfate (Plavix -) 75 mg PO DAILY [facility] Last Admin: 11/21/17 10:09 Dose: 75 mg Dexamethasone (Decadron -) 3 mg PO BID [facility] Last Admin: 11/21/17 22:40 Dose: 3 mg Heparin Sodium (Porcine) (Heparin -) 1,000 unit IVPUSH PRN PRN PRN Reason: Heparin Last Admin: 11/20/17 11:23 Dose: 1,000 unit Heparin Sodium (Porcine) (Heparin -) 5,000 unit IVPUSH PRN PRN PRN Reason: Heparin Sodium Chloride (Normal Saline -) 1,000 mls @ 83 mls/hr IV ASDIR [facility] Last Admin: 11/21/17 17:19 Dose: 83 mls/hr Heparin Sodium (Porcine) 25, (000 unit/ Sodium Chloride) 500 mls @ 20 mls/hr IV TITR ANGELITA; Protocol Last Admin: 11/21/17 16:35 Dose: 1,100 unit/hr, 22 mls/hr Losartan Potassium (Cozaar -) 25 mg PO DAILY [facility] Last Admin: 11/21/17 10:09 Dose: 25 mg Metoprolol Tartrate (Lopressor Injection -) 5 mg IVPUSH Q4H PRN PRN Reason: HYPERTENSION Last Admin: 11/21/17 04:57 Dose: 5 mg Metoprolol Tartrate (Lopressor -) 100 mg PO BID [facility] Last Admin: 11/21/17 22:40 Dose: 100 mg Oxycodone HCl (Roxicodone -) 5 mg PO Q6H PRN PRN Reason: PAIN LEVEL 7 - 10 Last Admin: 11/19/17 21:17 Dose: 5 mg Pantoprazole Sodium (Protonix Iv) 40 mg IVPUSH DAILY [facility] Last Admin: 11/21/17 10:10 Dose: 40 mg Tramadol HCl (Ultram -) 50 mg PO Q8H PRN PRN Reason: PAIN LEVEL 4 - 6 Last Admin: 11/21/17 22:40 Dose: 50 mg Warfarin Sodium (Coumadin -) 5 mg PO DAILY@1800 [facility] Last Admin: 11/21/17 17:20 Dose: 5 mg - Objective Vital Signs: Vital Signs Temperature 97.6 F 11/22/17 02:00 Pulse Rate 99 H 11/22/17 02:00 Respiratory Rate 20 11/22/17 02:00 Blood Pressure 100/50 L 11/22/17 02:00 O2 Sat by Pulse Oximetry (%) 92 L 11/21/17 21:00 Constitutional: Yes: No Distress, Calm Cardiovascular: Yes: Pulse Irregular Respiratory: Yes: CTA Bilaterally Gastrointestinal: Yes: Soft Edema: No Neurological: Yes: Alert ...Motor Strength: WNL Labs: CBC, BMP 11/22/17 05:17 11/22/17 05:17 INR, PTT INR 2.83 (0.83-1.09) H 11/22/17 05:17 Microbiology 11/05/17 08:55 Urine - Urine - Catheterized Urine Culture - Final Pseudomonas Aeruginosa 11/05/17 08:55 Blood - Peripheral Venous Blood Culture - Final NO GROWTH AFTER 5 DAYS INCUBATION 11/05/17 08:55 Blood - Peripheral Venous Blood Culture - Final NO GROWTH AFTER 5 DAYS INCUBATION Laboratory Tests 11/22/17 11/22/17 11/22/17 05:17 05:17 05:17 WBC 20.0 H Hgb 10.6 L Hct 33.0 L Plt Count 167 INR 2.83 H PTT (Actin FS) 64.6 H Sodium 142 Potassium 4.2 BUN 31 H Creatinine 0.9 AST 30 ALT 55 - ....Imaging EKG: Image Reviewed Assessment/Plan IMP: AF w/ RVR- now improved Cardiomyopathy w/ severely reduced LVEF CAD Urosepsis, on admission REC: 1. Heart rate now improved to acceptable average rate with titration of Metoprolol tartrate to 100mg BID. Tolerated well. Prior to d/c, would consider switch to Metop Succinate (either 75 or 100mg BID) given proven benefit in CHF. 2. Continue telemetry as meds titrated 3. Hep---> coumadin for INR 2-3. Now therapeutic. Can d/c UFH gtts. Daily INR. 4. Clarify timing of coronary PCI: if > than one month, can continue Warfarin ( for AF) + Clopidogrel and d/c ASA. Cardiology coverage for Jenny
[2017-11-22] MEDS: METOPROLOL TARTRATE 50 MG TABLET (FP) PO SCH ×2 (09:34→21:30)
[2017-11-22] MEDS: CLOPIDOGREL BISULFATE 75 MG TABLET (FP) PO SCH (09:35)
[2017-11-22] MEDS: ASPIRIN COATED 81 MG TABLET.EC PO SCH (09:35)
[2017-11-22] MEDS: LOSARTAN POTASSIUM 25 MG TABLET PO SCH (09:35)
[2017-11-22] MEDS: DEXAMETHASONE 1.5 MG TABLET PO SCH ×2 (09:36→21:30)
--- NOTE | 2017-11-22 10:10 | PN ---
Progress Note, Physician - Current Medication List Current Medications: Active Medications Acetaminophen (Tylenol -) 650 mg PO Q4H PRN PRN Reason: FEVER Acetaminophen (Tylenol -) 650 mg PO Q4H PRN PRN Reason: PAIN LEVEL 1 - 3 Aspirin (Ecotrin -) 81 mg PO DAILY [facility] Last Admin: 11/22/17 09:35 Dose: 81 mg Atorvastatin Calcium (Lipitor -) 40 mg PO HS [facility] Last Admin: 11/21/17 22:40 Dose: 40 mg Clopidogrel Bisulfate (Plavix -) 75 mg PO DAILY [facility] Last Admin: 11/22/17 09:35 Dose: 75 mg Dexamethasone (Decadron -) 3 mg PO BID [facility] Last Admin: 11/22/17 09:36 Dose: 3 mg Losartan Potassium (Cozaar -) 25 mg PO DAILY [facility] Last Admin: 11/22/17 09:35 Dose: 25 mg Metoprolol Tartrate (Lopressor Injection -) 5 mg IVPUSH Q4H PRN PRN Reason: HYPERTENSION Last Admin: 11/21/17 04:57 Dose: 5 mg Metoprolol Tartrate (Lopressor -) 100 mg PO BID [facility] Last Admin: 11/22/17 09:34 Dose: 100 mg Oxycodone HCl (Roxicodone -) 5 mg PO Q6H PRN PRN Reason: PAIN LEVEL 7 - 10 Last Admin: 11/19/17 21:17 Dose: 5 mg Pantoprazole Sodium (Protonix Iv) 40 mg IVPUSH DAILY [facility] Last Admin: 11/21/17 10:10 Dose: 40 mg Tramadol HCl (Ultram -) 50 mg PO Q8H PRN PRN Reason: PAIN LEVEL 4 - 6 Last Admin: 11/21/17 22:40 Dose: 50 mg Warfarin Sodium (Coumadin -) 5 mg PO DAILY@1800 [facility] Last Admin: 11/21/17 17:20 Dose: 5 mg - Objective Vital Signs: Vital Signs Temperature 97.6 F 11/22/17 02:00 Pulse Rate 99 H 11/22/17 02:00 Respiratory Rate 20 11/22/17 02:00 Blood Pressure 100/50 L 11/22/17 02:00 O2 Sat by Pulse Oximetry (%) 92 L 11/21/17 21:00 Cardiovascular: Yes: S1, S2 Respiratory: Yes: Regular, CTA Bilaterally Gastrointestinal: Yes: Normal Bowel Sounds, Soft, Distention Labs: CBC, BMP 11/22/17 05:17 11/22/17 05:17 INR, PTT INR 2.83 (0.83-1.09) H 11/22/17 05:17 Problem List - Problems (1) Adrenal mass Code(s): E27.9 - DISORDER OF ADRENAL GLAND, UNSPECIFIED (2) Sepsis Code(s): A41.9 - SEPSIS, UNSPECIFIED ORGANISM Qualifiers: Sepsis type: sepsis due to unspecified organism Qualified Code(s): A41.9 - Sepsis, unspecified organism (3) Atrial fibrillation Code(s): I48.91 - UNSPECIFIED ATRIAL FIBRILLATION Qualifiers: Atrial fibrillation type: persistent Qualified Code(s): I48.1 - Persistent atrial fibrillation (4) CAD (coronary artery disease) Code(s): I25.10 - ATHSCL HEART DISEASE OF [place] CORONARY ARTERY W/O ANG PCTRS Qualifiers: Coronary Disease-Associated Artery/Lesion type: [place] artery [place] vs. 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 Code(s): C67.9 - MALIGNANT NEOPLASM OF BLADDER, UNSPECIFIED; C78.7 - SECONDARY MALIG NEOPLASM OF LIVER AND INTRAHEPATIC BILE DUCT (7) Diabetes Code(s): E11.9 - TYPE 2 DIABETES MELLITUS WITHOUT COMPLICATIONS Assessment/Plan - Problems (1) Adrenal mass Assessment/Plan: -cont on decadron -seen by hospice care consultant Code(s): E27.9 - DISORDER OF ADRENAL GLAND, UNSPECIFIED (2) Hydronephrosis Assessment/Plan: -R hydronephrosis -s/p R percutaneous nephrostomy tube -nephrology on board Code(s): N13.30 - UNSPECIFIED HYDRONEPHROSIS (3) Sepsis Assessment/Plan: -finished IV ABT -continue routine labs monitor CBC -pt afebrile, last lactic acid WNL Code(s): A41.9 - SEPSIS, UNSPECIFIED ORGANISM Qualifiers: Sepsis type: sepsis due to unspecified organism Qualified Code(s): A41.9 - Sepsis, unspecified organism (4) Supratherapeutic INR Assessment/Plan: -cardiology on board and consult appreciated -on IV heparin drip -warfarin 5 mg - dose as per daily INR -PT/INR Daily Code(s): R79.1 - ABNORMAL COAGULATION PROFILE (5) Tachycardia Assessment/Plan: -cardiology on board--Improved -cont with tele monitoring -already on BB and CCB Code(s): R00.0 - TACHYCARDIA, UNSPECIFIED (6) UTI (urinary tract infection) Assessment/Plan: -treated with ABT -ID on board -afebrile, asymptomatic Code(s): N39.0 - URINARY TRACT INFECTION, SITE NOT SPECIFIED Qualifiers: Urinary tract infection type: acute cystitis Hematuria presence: with hematuria Qualified Code(s): N30.01 - Acute cystitis with hematuria (7) Anemia Assessment/Plan: -serial CBC to monitor H/H -stool occult negative -iron profile shows iron deficiency, B12 and Thyroid unremarkable -Venofer Infusion x 1 yesterday Code(s): D64.9 - ANEMIA, UNSPECIFIED (8) Atrial fibrillation with rapid ventricular response Assessment/Plan: -tele monitoring -cont with warfarin and adjust dose as needed -cardiology on board Code(s): I48.91 - UNSPECIFIED ATRIAL FIBRILLATION (9) CAD (coronary artery disease) Assessment/Plan: -on Plavix asa, and BB - atorvastatin 40mg qhs Code(s): I25.10 - ATHSCL HEART DISEASE OF [place] CORONARY ARTERY W/O ANG PCTRS Qualifiers: Coronary Disease-Associated Artery/Lesion type: [place] artery [place] vs. 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
[2017-11-22] MEDS: PANTOPRAZOLE SODIUM 40 MG VIAL IVPUSH SCH (10:13)
[2017-11-22 10:36] LABS: PLATELET ESTIMATE ADEQUATE
[2017-11-22 13:54] VITALS: BMI 30.9
[2017-11-22] MEDS: WARFARIN NA 5 MG TABLET (UD) PO SCH (17:53)
[2017-11-22] MEDS: ATORVASTATIN CA 40 MG TABLET (FP) PO SCH (21:30)
[2017-11-22] MEDS: traMADol HCL 50 MG TABLET PO PRN (22:18)
[2017-11-23 06:58] LABS: INR 3.31 (0.83-1.09); PROTHROMBIN TIME (PATIENT) 39.5 SEC (9.7-13.0)
[2017-11-23 07:00] LABS: ACTIVATED PTT 33.2 SECONDS (25.2-36.5)
[2017-11-23 07:04] LABS: BASO % 0.1 % (0-2.0); EOS % 0.2 % (0-4.5); HEMATOCRIT 35.6 % (35.4-49); HEMOGLOBIN 11.2 GM/dL (11.7-16.9); LYMPH % 2.4 % (8-40); MCH 26.8 pg (25.7-33.7); MCHC 31.4 g/dl (32.0-35.9); MEAN CELL VOLUME 85.4 fl (80-96); MONO % 4.4 % (3.8-10.2); NEUT % 92.9 % (42.8-82.8); PLATELET COUNT 167 K/MM3 (134-434); RBC 4.17 M/mm3 (4.00-5.60); RDW 20.2 % (11.9-15.9); WHITE BLOOD COUNT 19.8 K/mm3 (4.0-10.0)
[2017-11-23 07:40] LABS: ALK PHOS 320 U/L (45-117); ANION GAP 10 MMOL/L (8-16); BILIRUBIN,TOTAL 0.7 mg/dL (0.2-1); BLOOD UREA NITROGEN 29 mg/dL (7-18); CHLORIDE 111 mmol/L (98-107); CO2 22 mmol/L (21-32); CREATININE 0.8 mg/dL (0.55-1.3); GLUCOSE,RANDOM 102 mg/dL (74-106); POTASSIUM 4.7 mmol/L (3.5-5.1); SGOT/AST 28 U/L (15-37); SGPT/ALT 65 U/L (13-61); SODIUM 143 mmol/L (136-145); TOT PROT 5.6 g/dl (6.4-8.2)
[2017-11-23] MEDS: PANTOPRAZOLE SODIUM 40 MG VIAL IVPUSH SCH (09:37)
[2017-11-23] MEDS: CLOPIDOGREL BISULFATE 75 MG TABLET (FP) PO SCH (09:38)
[2017-11-23] MEDS: METOPROLOL TARTRATE 50 MG TABLET (FP) PO SCH ×2 (09:39→22:23)
[2017-11-23] MEDS: DEXAMETHASONE 1.5 MG TABLET PO SCH ×2 (09:39→22:23)
[2017-11-23] MEDS: ASPIRIN COATED 81 MG TABLET.EC PO SCH (09:39)
[2017-11-23] MEDS: LOSARTAN POTASSIUM 25 MG TABLET PO SCH (09:41)
--- NOTE | 2017-11-23 09:44 | PN ---
Progress Note, Physician - Current Medication List Current Medications: Active Medications Acetaminophen (Tylenol -) 650 mg PO Q4H PRN PRN Reason: FEVER Acetaminophen (Tylenol -) 650 mg PO Q4H PRN PRN Reason: PAIN LEVEL 1 - 3 Aspirin (Ecotrin -) 81 mg PO DAILY [facility] Last Admin: 11/23/17 09:39 Dose: 81 mg Atorvastatin Calcium (Lipitor -) 40 mg PO HS [facility] Last Admin: 11/22/17 21:30 Dose: 40 mg Clopidogrel Bisulfate (Plavix -) 75 mg PO DAILY [facility] Last Admin: 11/23/17 09:38 Dose: 75 mg Dexamethasone (Decadron -) 3 mg PO BID [facility] Last Admin: 11/23/17 09:39 Dose: 3 mg Losartan Potassium (Cozaar -) 25 mg PO DAILY [facility] Last Admin: 11/23/17 09:41 Dose: 25 mg Metoprolol Tartrate (Lopressor Injection -) 5 mg IVPUSH Q4H PRN PRN Reason: HYPERTENSION Last Admin: 11/21/17 04:57 Dose: 5 mg Metoprolol Tartrate (Lopressor -) 100 mg PO BID [facility] Last Admin: 11/23/17 09:39 Dose: 100 mg Oxycodone HCl (Roxicodone -) 5 mg PO Q6H PRN PRN Reason: PAIN LEVEL 7 - 10 Last Admin: 11/19/17 21:17 Dose: 5 mg Pantoprazole Sodium (Protonix Iv) 40 mg IVPUSH DAILY [facility] Last Admin: 11/23/17 09:37 Dose: 40 mg Tramadol HCl (Ultram -) 50 mg PO Q8H PRN PRN Reason: PAIN LEVEL 4 - 6 Last Admin: 11/22/17 22:18 Dose: 50 mg Warfarin Sodium (Coumadin -) 5 mg PO DAILY@1800 [facility] Last Admin: 11/22/17 17:53 Dose: 5 mg - Objective Vital Signs: Vital Signs Temperature 97.7 F 11/23/17 08:07 Pulse Rate 111 H 11/23/17 08:07 Respiratory Rate 16 11/23/17 08:07 Blood Pressure 94/52 L 11/23/17 08:07 O2 Sat by Pulse Oximetry (%) 94 L 11/23/17 08:03 Eyes: Yes: WNL, Conjunctiva Clear, EOM Intact HENT: Yes: WNL, Atraumatic, Normocephalic Neck: Yes: WNL, Supple, Trachea Midline Cardiovascular: Yes: WNL, Regular Rate and Rhythm Respiratory: Yes: WNL, Regular, CTA Bilaterally Gastrointestinal: Yes: WNL, Normal Bowel Sounds Genitourinary: Yes: WNL Musculoskeletal: Yes: WNL Extremities: Yes: WNL Edema: No Integumentary: Yes: WNL Neurological: Yes: WNL, Alert, Oriented ...Motor Strength: WNL Psychiatric: Yes: WNL Labs: CBC, BMP 11/23/17 05:30 11/23/17 05:30 INR, PTT INR 3.31 (0.83-1.09) H 11/23/17 05:30 Assessment/Plan IMP: AF w/ RVR- now improved Cardiomyopathy w/ severely reduced LVEF CAD Urosepsis, on admission REC: 1. Heart rate now improved to acceptable average rate with titration of Metoprolol tartrate to 100mg BID. Tolerated well. Prior to d/c, would consider switch to Metop Succinate (either 75 or 100mg BID) given proven benefit in CHF. 2. Continue telemetry as meds titrated 3. Hep---> coumadin for INR 2-3. Now therapeutic. Can d/c UFH gtts. Daily INR. 4. Clarify timing of coronary PCI: if > than one month, can continue Warfarin ( for AF) + Clopidogrel and d/c ASA.
--- NOTE | 2017-11-23 11:28 | PN ---
Progress Note, Physician History of Present Illness: Pt seen and examined at bedside. He is awake and alert. He denies chest pain or palpitations. - Current Medication List Current Medications: Active Medications Acetaminophen (Tylenol -) 650 mg PO Q4H PRN PRN Reason: FEVER Acetaminophen (Tylenol -) 650 mg PO Q4H PRN PRN Reason: PAIN LEVEL 1 - 3 Aspirin (Ecotrin -) 81 mg PO DAILY [facility] Last Admin: 11/23/17 09:39 Dose: 81 mg Atorvastatin Calcium (Lipitor -) 40 mg PO HS [facility] Last Admin: 11/22/17 21:30 Dose: 40 mg Clopidogrel Bisulfate (Plavix -) 75 mg PO DAILY [facility] Last Admin: 11/23/17 09:38 Dose: 75 mg Dexamethasone (Decadron -) 3 mg PO BID [facility] Last Admin: 11/23/17 09:39 Dose: 3 mg Losartan Potassium (Cozaar -) 25 mg PO DAILY [facility] Last Admin: 11/23/17 09:41 Dose: 25 mg Metoprolol Tartrate (Lopressor Injection -) 5 mg IVPUSH Q4H PRN PRN Reason: HYPERTENSION Last Admin: 11/21/17 04:57 Dose: 5 mg Metoprolol Tartrate (Lopressor -) 100 mg PO BID [facility] Last Admin: 11/23/17 09:39 Dose: 100 mg Oxycodone HCl (Roxicodone -) 5 mg PO Q6H PRN PRN Reason: PAIN LEVEL 7 - 10 Last Admin: 11/19/17 21:17 Dose: 5 mg Pantoprazole Sodium (Protonix Iv) 40 mg IVPUSH DAILY [facility] Last Admin: 11/23/17 09:37 Dose: 40 mg Tramadol HCl (Ultram -) 50 mg PO Q8H PRN PRN Reason: PAIN LEVEL 4 - 6 Last Admin: 11/22/17 22:18 Dose: 50 mg Warfarin Sodium (Coumadin -) 5 mg PO DAILY@1800 [facility] Last Admin: 11/22/17 17:53 Dose: 5 mg - Objective Vital Signs: Vital Signs Temperature 97.7 F 11/23/17 08:07 Pulse Rate 111 H 11/23/17 08:07 Respiratory Rate 16 11/23/17 08:07 Blood Pressure 94/52 L 11/23/17 08:07 O2 Sat by Pulse Oximetry (%) 94 L 11/23/17 08:03 Constitutional: Yes: Calm Eyes: Yes: Conjunctiva Clear HENT: Yes: Atraumatic Neck: Yes: Supple Cardiovascular: Yes: S1, S2 Respiratory: Yes: CTA Bilaterally Gastrointestinal: Yes: Soft Genitourinary: Yes: Other (ileal conduit, nephrostomy) Musculoskeletal: Yes: WNL Edema: No Neurological: Yes: Oriented Psychiatric: Yes: Oriented Labs: CBC, BMP 11/23/17 05:30 11/23/17 05:30 INR, PTT INR 3.31 (0.83-1.09) H 11/23/17 05:30 Problem List - Problems (1) Hydronephrosis Code(s): N13.30 - UNSPECIFIED HYDRONEPHROSIS (2) Sepsis Code(s): A41.9 - SEPSIS, UNSPECIFIED ORGANISM Qualifiers: Sepsis type: sepsis due to unspecified organism Qualified Code(s): A41.9 - Sepsis, unspecified organism (3) UTI (urinary tract infection) Code(s): N39.0 - URINARY TRACT INFECTION, SITE NOT SPECIFIED Qualifiers: Urinary tract infection type: acute cystitis Hematuria presence: with hematuria Qualified Code(s): N30.01 - Acute cystitis with hematuria (4) Renal dysfunction Code(s): N28.9 - DISORDER OF KIDNEY AND URETER, UNSPECIFIED Assessment/Plan Current Medications Generic Name Dose Route Start Last Admin Trade Name Freq PRN Reason Stop Dose Admin Acetaminophen 650 mg 11/18/17 16:59 Tylenol - PO Q4H PRN FEVER Acetaminophen 650 mg 11/18/17 16:59 Tylenol - PO Q4H PRN PAIN LEVEL 1 - 3 Aspirin 81 mg 11/18/17 10:00 11/23/17 09:39 Ecotrin - PO 81 mg DAILY ANG[facility] Administration Atorvastatin Calcium 40 mg 11/18/17 22:00 11/22/17 21:30 Lipitor - PO 40 mg HS [facility] Administration Clopidogrel Bisulfate 75 mg 11/18/17 10:00 11/23/17 09:38 Plavix - PO 75 mg DAILY [facility] Administration Dexamethasone 3 mg 11/21/17 10:00 11/23/17 09:39 Decadron - PO 3 mg BID [facility] Administration Losartan Potassium 25 mg 11/18/17 16:30 11/23/17 09:41 Cozaar - PO 25 mg DAILY [facility] Administration Metoprolol Tartrate 5 mg 11/20/17 08:47 11/21/17 04:57 Lopressor Injection - IVPUSH 5 mg Q4H PRN Administration HYPERTENSION Metoprolol Tartrate 100 mg 11/21/17 10:00 11/23/17 09:39 Lopressor - PO 100 mg BID ANG[facility] Administration Oxycodone HCl 5 mg 11/18/17 17:02 11/19/17 21:17 Roxicodone - PO 5 mg Q6H PRN Administration PAIN LEVEL 7 - 10 Pantoprazole Sodium 40 mg 11/18/17 10:00 11/23/17 09:37 Protonix Iv IVPUSH 40 mg DAILY [facility] Administration Tramadol HCl 50 mg 11/18/17 17:01 11/22/17 22:18 Ultram - PO 50 mg Q8H PRN Administration PAIN LEVEL 4 - 6 Warfarin Sodium 5 mg 11/20/17 18:00 11/22/17 17:53 Coumadin - PO 5 mg DAILY@1800 [facility] Administration Impression 1. CKD 2. altered mental status 3. a-fib 4. DM 5. HTN 6. hx bladder cancer 7. leukocytosis 8. sepsis 9. hyperkalemia 10. chon Plan - reviewed labs - renal function stable - monitor coags - monitor urine output - will follow PRN Dr Baltazar
--- NOTE | 2017-11-23 12:06 | PN ---
Progress Note, Physician Chief Complaint: hydronephrosis anemia CAD a-fib History of Present Illness: s/p percutaneous nephrostomy tube +hematuria trx to tele for a-fib/a-flutter Warfarin restarted On IV heparin INR subtherapeutic - Current Medication List Current Medications: Active Medications Acetaminophen (Tylenol -) 650 mg PO Q4H PRN PRN Reason: FEVER Acetaminophen (Tylenol -) 650 mg PO Q4H PRN PRN Reason: PAIN LEVEL 1 - 3 Aspirin (Ecotrin -) 81 mg PO DAILY [facility] Last Admin: 11/23/17 09:39 Dose: 81 mg Atorvastatin Calcium (Lipitor -) 40 mg PO HS [facility] Last Admin: 11/22/17 21:30 Dose: 40 mg Clopidogrel Bisulfate (Plavix -) 75 mg PO DAILY [facility] Last Admin: 11/23/17 09:38 Dose: 75 mg Dexamethasone (Decadron -) 3 mg PO BID [facility] Last Admin: 11/23/17 09:39 Dose: 3 mg Losartan Potassium (Cozaar -) 25 mg PO DAILY [facility] Last Admin: 11/23/17 09:41 Dose: 25 mg Metoprolol Tartrate (Lopressor Injection -) 5 mg IVPUSH Q4H PRN PRN Reason: HYPERTENSION Last Admin: 11/21/17 04:57 Dose: 5 mg Metoprolol Tartrate (Lopressor -) 100 mg PO BID [facility] Last Admin: 11/23/17 09:39 Dose: 100 mg Oxycodone HCl (Roxicodone -) 5 mg PO Q6H PRN PRN Reason: PAIN LEVEL 7 - 10 Last Admin: 11/19/17 21:17 Dose: 5 mg Pantoprazole Sodium (Protonix -) 40 mg PO DAILY [facility] Tramadol HCl (Ultram -) 50 mg PO Q8H PRN PRN Reason: PAIN LEVEL 4 - 6 Last Admin: 11/22/17 22:18 Dose: 50 mg - Objective Vital Signs: Vital Signs Temperature 97.7 F 11/23/17 08:07 Pulse Rate 111 H 11/23/17 08:07 Respiratory Rate 16 11/23/17 08:07 Blood Pressure 94/52 L 11/23/17 08:07 O2 Sat by Pulse Oximetry (%) 94 L 11/23/17 08:03 Labs: CBC, BMP 11/23/17 05:30 11/23/17 05:30 INR, PTT INR 3.31 (0.83-1.09) H 11/23/17 05:30 Problem List - Problems (1) Adrenal mass Code(s): E27.9 - DISORDER OF ADRENAL GLAND, UNSPECIFIED (2) Hydronephrosis Code(s): N13.30 - UNSPECIFIED HYDRONEPHROSIS (3) Sepsis Code(s): A41.9 - SEPSIS, UNSPECIFIED ORGANISM Qualifiers: Sepsis type: sepsis due to unspecified organism Qualified Code(s): A41.9 - Sepsis, unspecified organism (4) Supratherapeutic INR Code(s): R79.1 - ABNORMAL COAGULATION PROFILE (5) Tachycardia Code(s): R00.0 - TACHYCARDIA, UNSPECIFIED (6) UTI (urinary tract infection) Code(s): N39.0 - URINARY TRACT INFECTION, SITE NOT SPECIFIED Qualifiers: Urinary tract infection type: acute cystitis Hematuria presence: with hematuria Qualified Code(s): N30.01 - Acute cystitis with hematuria (7) Anemia Code(s): D64.9 - ANEMIA, UNSPECIFIED (8) Atrial fibrillation with rapid ventricular response Code(s): I48.91 - UNSPECIFIED ATRIAL FIBRILLATION (9) CAD (coronary artery disease) Code(s): I25.10 - ATHSCL HEART DISEASE OF [place] CORONARY ARTERY W/O ANG PCTRS Qualifiers: Coronary Disease-Associated Artery/Lesion type: [place] artery [place] vs. 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
[2017-11-23 12:29] LABS: ANISOCYTOSIS 1+; MACROCYTOSIS 0; PLATELET ESTIMATE NORMAL
[2017-11-23] MEDS: oxyCODONE HCL 5 MG TABLET PO PRN (18:19)
[2017-11-23] MEDS: ACETAMINOPHEN 325 MG TABLET (FP) PO PRN (18:20)
[2017-11-23] MEDS ORDERED: PT OWN MED DRAWER 7, Y5N ONE (21:05)
[2017-11-23] MEDS: ATORVASTATIN CA 40 MG TABLET (FP) PO SCH (22:23)
--- NOTE | 2017-11-24 01:00 | PN ---
Progress Note, Physician Chief Complaint: awake in bed ,no complaint History of Present Illness: sp atrial fibrillation,chf,cad,angina, hypoadrenal,showing subclinical hyperthyrodism - Current Medication List Current Medications: Active Medications Acetaminophen (Tylenol -) 650 mg PO Q4H PRN PRN Reason: FEVER Last Admin: 11/23/17 18:20 Dose: 650 mg Acetaminophen (Tylenol -) 650 mg PO Q4H PRN PRN Reason: PAIN LEVEL 1 - 3 Aspirin (Ecotrin -) 81 mg PO DAILY [facility] Last Admin: 11/23/17 09:39 Dose: 81 mg Atorvastatin Calcium (Lipitor -) 40 mg PO HS [facility] Last Admin: 11/23/17 22:23 Dose: Not Given Clopidogrel Bisulfate (Plavix -) 75 mg PO DAILY [facility] Last Admin: 11/23/17 09:38 Dose: 75 mg Dexamethasone (Decadron -) 3 mg PO BID [facility] Last Admin: 11/23/17 22:23 Dose: Not Given Losartan Potassium (Cozaar -) 25 mg PO DAILY [facility] Last Admin: 11/23/17 09:41 Dose: 25 mg Metoprolol Tartrate (Lopressor Injection -) 5 mg IVPUSH Q4H PRN PRN Reason: HYPERTENSION Last Admin: 11/21/17 04:57 Dose: 5 mg Metoprolol Tartrate (Lopressor -) 100 mg PO BID [facility] Last Admin: 11/23/17 22:23 Dose: Not Given Oxycodone HCl (Roxicodone -) 5 mg PO Q6H PRN PRN Reason: PAIN LEVEL 7 - 10 Last Admin: 11/23/17 18:19 Dose: 5 mg Pantoprazole Sodium (Protonix -) 40 mg PO DAILY [facility] Tramadol HCl (Ultram -) 50 mg PO Q8H PRN PRN Reason: PAIN LEVEL 4 - 6 Last Admin: 11/22/17 22:18 Dose: 50 mg - Objective Vital Signs: Vital Signs Temperature 97.7 F 11/23/17 22:00 Pulse Rate 86 11/23/17 22:00 Respiratory Rate 20 11/23/17 22:00 Blood Pressure 90/51 L 11/23/17 22:00 O2 Sat by Pulse Oximetry (%) 94 L 11/23/17 21:00 Constitutional: Yes: Anxious Eyes: Yes: EOM Intact HENT: Yes: Normocephalic Neck: Yes: Trachea Midline Cardiovascular: Yes: Tachycardia, S3 Respiratory: Yes: Rales, SOB, SOB on Exertion Gastrointestinal: Yes: Normal Bowel Sounds ...Rectal Exam: Yes: Deferred Genitourinary: Yes: WNL Musculoskeletal: Yes: Joint Swelling, Muscle Pain, Muscle Weakness Extremities: Yes: WNL Edema: Yes Neurological: Yes: Alert, Tremors, Weakness Labs: CBC, BMP 11/23/17 05:30 11/23/17 05:30 INR, PTT INR 3.31 (0.83-1.09) H 11/23/17 05:30 Problem List - Problems (1) HEYDI (acute kidney injury) Code(s): N17.9 - ACUTE KIDNEY FAILURE, UNSPECIFIED (2) Adrenal mass Code(s): E27.9 - DISORDER OF ADRENAL GLAND, UNSPECIFIED (3) Hydronephrosis Code(s): N13.30 - UNSPECIFIED HYDRONEPHROSIS (4) Sepsis Code(s): A41.9 - SEPSIS, UNSPECIFIED ORGANISM Qualifiers: Sepsis type: sepsis due to unspecified organism Qualified Code(s): A41.9 - Sepsis, unspecified organism (5) Supratherapeutic INR Code(s): R79.1 - ABNORMAL COAGULATION PROFILE (6) Anemia Code(s): D64.9 - ANEMIA, UNSPECIFIED (7) Anxiety Code(s): F41.9 - ANXIETY DISORDER, UNSPECIFIED Assessment/Plan Current Active Problems HEYDI (acute kidney injury) (Acute) Adrenal mass (Acute) Hydronephrosis (Acute) Hypokalemia (Acute) Sepsis (Acute) Supratherapeutic INR (Acute) Tachycardia (Acute) UTI (urinary tract infection) (Acute) subclinical hyperthyroidism Abnormal Lab Results 11/23/17 11/23/17 11/23/17 05:30 05:30 05:30 WBC 19.8 H Hgb 11.2 L MCHC 31.4 L RDW 20.2 H Absolute Neuts (auto) 18.4 H Neutrophils % 92.9 H Neutrophils % (Manual) 96.9 H Lymphocytes % 2.4 L D Lymphocytes % (Manual) 1.1 L D Monocytes % (Manual) 1 L PT with INR 39.50 H INR 3.31 H Chloride 111 H BUN 29 H ALT 65 H Alkaline Phosphatase 320 H Total Protein 5.6 L Albumin 2.0 L Laboratory Results - last 24 hr 11/23/17 11/23/17 11/23/17 05:30 05:30 05:30 WBC 19.8 H RBC 4.17 Hgb 11.2 L Hct 35.6 MCV 85.4 MCH 26.8 MCHC 31.4 L RDW 20.2 H Plt Count 167 MPV 10.0 Absolute Neuts (auto) 18.4 H Neutrophils % 92.9 H Neutrophils % (Manual) 96.9 H Band Neutrophils % 0.0 Lymphocytes % 2.4 L D Lymphocytes % (Manual) 1.1 L D Monocytes % 4.4 Monocytes % (Manual) 1 L Eosinophils % 0.2 Eosinophils % (Manual) 0.0 Basophils % 0.1 Basophils % (Manual) 0.0 Myelocytes % (Man) 0 Promyelocytes % (Man) 0 Blast Cells % (Manual) 0 Nucleated RBC % 0 Metamyelocytes 0 Hypochromia 0 Platelet Estimate Normal Polychromasia 0 Poikilocytosis 0 Anisocytosis 1+ Microcytosis 1+ Macrocytosis 0 PT with INR 39.50 H INR 3.31 H PTT (Actin FS) 33.2 Sodium 143 Potassium 4.7 Chloride 111 H Carbon Dioxide 22 Anion Gap 10 BUN 29 H Creatinine 0.8 Creat Clearance w eGFR > 60 Random Glucose 102 Calcium 10.0 Total Bilirubin 0.7 AST 28 ALT 65 H Alkaline Phosphatase 320 H Total Protein 5.6 L Albumin 2.0 L plan; free t4 direct dialysis pending
[2017-11-24] MEDS: ACETAMINOPHEN 325 MG TABLET (FP) PO PRN ×2 (04:41→18:07)
[2017-11-24 06:50] LABS: HEMATOCRIT 33.5 % (35.4-49); HEMOGLOBIN 10.5 GM/dL (11.7-16.9); MCH 26.9 pg (25.7-33.7); MCHC 31.2 g/dl (32.0-35.9); MEAN PLT VOLUME 10.1 fl (7.5-11.1); PLATELET COUNT 138 K/MM3 (134-434); RDW 19.9 % (11.9-15.9); WHITE BLOOD COUNT 19.3 K/mm3 (4.0-10.0)
[2017-11-24 07:22] LABS: PROTHROMBIN TIME (PATIENT) 52.2 SEC (9.7-13.0)
[2017-11-24 08:10] LABS: INR 4.36 (0.83-1.09)
--- NOTE | 2017-11-24 08:33 | CON.GU ---
Consult Consult Specialty:: urology Referred by:: Celia Reason for Consultation:: right ureteral obstruction/metastatic TCC - History of Present Illness Chief Complaint: right ureteral obstruction s/p nephrostomy tube - History Source History Provided By: Patient, Medical Record, Caregiver Limitations to Obtaining History: No Limitations - Past Medical History Cardio/Vascular: Yes: AFIB, CAD, HTN, Hyperlipdemia Pulmonary: Yes: Sleep Apnea (rule out) Renal/: Yes: Renal Inusuff, Cancer (bladder) Endocrine: Yes: Diabetes Mellitus - Past Surgical History Past Surgical History: Yes: Stent - Alcohol/Substance Use Hx Alcohol Use: No History of Substance Use: reports: None - Smoking History Smoking history: Never smoked Have you smoked in the past 12 months: No Aproximately how many cigarettes per day: 0 - Social History ADL: Independent History of Recent Travel: Yes ([place]) Home Medications - Allergies Allergies/Adverse Reactions: Allergies Allergy/AdvReac Type Severity Reaction Status Date / Time No Known Allergies Allergy Verified 10/27/17 23:31 - Home Medications Home Medications: Ambulatory Orders Aspirin [Aspirin EC] 81 mg PO DAILY 08/25/17 Citalopram Hydrobromide [Citalopram HBr] 10 mg PO DAILY 08/25/17 Clopidogrel Bisulfate [Plavix] 75 mg PO DAILY 08/25/17 Oxycodone HCl/Acetaminophen [Endocet 5-325 Tablet] 1 each PO Q6H PRN 08/25/17 Pantoprazole Sodium [Protonix] 40 mg PO DAILY 08/25/17 Acetaminophen [Tylenol .Regular Strength -] 650 mg PO Q6H PRN #120 tablet MDD 6 09/03/17 Docusate Sodium [Colace -] 300 mg PO HS #90 capsule 09/03/17 Lisinopril [Prinivil] 2.5 mg PO DAILY #30 tablet 09/03/17 Metoprolol Succinate [Toprol XL -] 50 mg PO DAILY #30 tab.sr.24h 09/03/17 Spironolactone [Aldactone -] 25 mg PO DAILY #30 tablet 09/03/17 Warfarin Sodium [Coumadin] 4 mg PO HS #20 tablet MDD 1 11/03/17 Physical Exam- Vital Signs: Vital Signs Temperature 98.2 F 11/24/17 05:56 Pulse Rate 68 11/24/17 05:56 Respiratory Rate 20 11/24/17 05:56 Blood Pressure 90/53 L 11/24/17 05:56 O2 Sat by Pulse Oximetry (%) 94 L 11/23/17 21:00 Constitutional: Yes: Calm, [place] Eyes: Yes: WNL, Conjunctiva Clear HENT: Yes: WNL, Atraumatic, Normocephalic Neck: Yes: WNL, Supple, Trachea Midline Cardiovascular: Yes: Regular Rate and Rhythm Respiratory: Yes: Regular Gastrointestinal: Yes: Normal Bowel Sounds, Soft (ileaostomy draining urine/no output from right nephrostomy tube) Renal/: Yes: WNL Testicles: Yes: WNL Scrotum: Yes: WNL Penis: Yes: WNL Prostate Exam: Yes: Deferred Labs: CBC, BMP 11/24/17 05:30 11/23/17 05:30 Assessment/Plan impression metastatic TCC right ureteral obstruction plan discussed with Dr Laureano Tinsley feels that there is no significant ureteral obstruction will order a diuretic renal scan to assess patency or right ureter the nephrostomy tube was irrigated by the urologist without fluid able to be drawn back which lends credebility of no significant obstruction
--- NOTE | 2017-11-24 08:40 | PN ---
Progress Note, Physician - Current Medication List Current Medications: Active Medications Acetaminophen (Tylenol -) 650 mg PO Q4H PRN PRN Reason: FEVER Last Admin: 11/24/17 04:41 Dose: 650 mg Acetaminophen (Tylenol -) 650 mg PO Q4H PRN PRN Reason: PAIN LEVEL 1 - 3 Aspirin (Ecotrin -) 81 mg PO DAILY [facility] Last Admin: 11/23/17 09:39 Dose: 81 mg Atorvastatin Calcium (Lipitor -) 40 mg PO HS [facility] Last Admin: 11/23/17 22:23 Dose: Not Given Clopidogrel Bisulfate (Plavix -) 75 mg PO DAILY [facility] Last Admin: 11/23/17 09:38 Dose: 75 mg Dexamethasone (Decadron -) 3 mg PO BID [facility] Last Admin: 11/23/17 22:23 Dose: Not Given Losartan Potassium (Cozaar -) 25 mg PO DAILY [facility] Last Admin: 11/23/17 09:41 Dose: 25 mg Metoprolol Tartrate (Lopressor Injection -) 5 mg IVPUSH Q4H PRN PRN Reason: HYPERTENSION Last Admin: 11/21/17 04:57 Dose: 5 mg Metoprolol Tartrate (Lopressor -) 100 mg PO BID [facility] Last Admin: 11/23/17 22:23 Dose: Not Given Oxycodone HCl (Roxicodone -) 5 mg PO Q6H PRN PRN Reason: PAIN LEVEL 7 - 10 Last Admin: 11/23/17 18:19 Dose: 5 mg Pantoprazole Sodium (Protonix -) 40 mg PO DAILY [facility] Tramadol HCl (Ultram -) 50 mg PO Q8H PRN PRN Reason: PAIN LEVEL 4 - 6 Last Admin: 11/22/17 22:18 Dose: 50 mg - Objective Vital Signs: Vital Signs Temperature 98.2 F 11/24/17 05:56 Pulse Rate 68 11/24/17 05:56 Respiratory Rate 20 11/24/17 05:56 Blood Pressure 90/53 L 11/24/17 05:56 O2 Sat by Pulse Oximetry (%) 94 L 11/23/17 21:00 Cardiovascular: Yes: S1, S2 Respiratory: Yes: Regular, CTA Bilaterally Gastrointestinal: Yes: Normal Bowel Sounds, Soft Genitourinary: Yes: Other (NEPHROSTOMY) Labs: CBC, BMP 11/24/17 05:30 11/23/17 05:30 INR, PTT INR 4.36 (0.83-1.09) H* 11/24/17 05:30 Problem List - Problems (1) Adrenal mass Code(s): E27.9 - DISORDER OF ADRENAL GLAND, UNSPECIFIED (2) Sepsis Code(s): A41.9 - SEPSIS, UNSPECIFIED ORGANISM Qualifiers: Sepsis type: sepsis due to unspecified organism Qualified Code(s): A41.9 - Sepsis, unspecified organism (3) Atrial fibrillation Code(s): I48.91 - UNSPECIFIED ATRIAL FIBRILLATION Qualifiers: Atrial fibrillation type: persistent Qualified Code(s): I48.1 - Persistent atrial fibrillation (4) CAD (coronary artery disease) Code(s): I25.10 - ATHSCL HEART DISEASE OF [place] CORONARY ARTERY W/O ANG PCTRS Qualifiers: Coronary Disease-Associated Artery/Lesion type: [place] artery [place] vs. 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 Code(s): C67.9 - MALIGNANT NEOPLASM OF BLADDER, UNSPECIFIED; C78.7 - SECONDARY MALIG NEOPLASM OF LIVER AND INTRAHEPATIC BILE DUCT (7) Diabetes Code(s): E11.9 - TYPE 2 DIABETES MELLIT[place] WITHOUT COMPLICATIONS Assessment/Plan - Problems (1) Adrenal mass Assessment/Plan: -cont on decadron -seen by clinical nursing coordinator Code(s): E27.9 - DISORDER OF ADRENAL GLAND, UNSPECIFIED (2) Hydronephrosis Assessment/Plan: -R hydronephrosis -s/p R percutaneous nephrostomy tube-D/W UROLOGY IR WILL CLAMP AND ASSES TODAY -nephrology on board Code(s): N13.30 - UNSPECIFIED HYDRONEPHROSIS (3) Sepsis Assessment/Plan: -finished IV ABT -continue routine labs monitor CBC -pt afebrile, last lactic acid WNL Code(s): A41.9 - SEPSIS, UNSPECIFIED ORGANISM Qualifiers: Sepsis type: sepsis due to unspecified organism Qualified Code(s): A41.9 - Sepsis, unspecified organism (4) Supratherapeutic INR Assessment/Plan: -cardiology on board and consult appreciated -on IV heparin drip -warfarin 5 mg - dose as per daily INR -PT/INR Daily Code(s): R79.1 - ABNORMAL COAGULATION PROFILE (5) Tachycardia Assessment/Plan: -cardiology on board--Improved -cont with tele monitoring -already on BB and CCB Code(s): R00.0 - TACHYCARDIA, UNSPECIFIED (6) UTI (urinary tract infection) Assessment/Plan: -treated with ABT -ID on board -afebrile, asymptomatic Code(s): N39.0 - URINARY TRACT INFECTION, SITE NOT SPECIFIED Qualifiers: Urinary tract infection type: acute cystitis Hematuria presence: with hematuria Qualified Code(s): N30.01 - Acute cystitis with hematuria (7) Anemia Assessment/Plan: -serial CBC to monitor H/H -stool occult negative -iron profile shows iron deficiency, B12 and Thyroid unremarkable -Venofer Infusion x 1 yesterday Code(s): D64.9 - ANEMIA, UNSPECIFIED (8) Atrial fibrillation with rapid ventricular response Assessment/Plan: -tele monitoring -cont with warfarin and adjust dose as needed -cardiology on board Code(s): I48.91 - UNSPECIFIED ATRIAL FIBRILLATION (9) CAD (coronary artery disease) Assessment/Plan: -on Plavix asa, and BB - atorvastatin 40mg qhs Code(s): I25.10 - ATHSCL HEART DISEASE OF [place] CORONARY ARTERY W/O ANG PCTRS Qualifiers: Coronary Disease-Associated Artery/Lesion type: [place] artery [place] vs. 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
[2017-11-24] MEDS ORDERED: PT OWN MED DRAWER 7, Y5N ONE (09:33)
[2017-11-24] MEDS: ASPIRIN COATED 81 MG TABLET.EC PO SCH (10:00)
[2017-11-24] MEDS: PANTOPRAZOLE 40 MG TABLET (FP) PO SCH (10:00)
[2017-11-24] MEDS: CLOPIDOGREL BISULFATE 75 MG TABLET (FP) PO SCH (10:00)
[2017-11-24] MEDS: METOPROLOL TARTRATE 50 MG TABLET (FP) PO SCH ×2 (10:01→21:35)
[2017-11-24] MEDS: LOSARTAN POTASSIUM 25 MG TABLET PO SCH (10:01)
[2017-11-24] MEDS: DEXAMETHASONE 1.5 MG TABLET PO SCH ×2 (10:01→21:35)
--- NOTE | 2017-11-24 10:12 | PN ---
Progress Note, Physician Chief Complaint: Pt is asymptomatic.; He appears disoriented to person, place, and time. Staff says he screams when he is moved (assumed to be in pain). History of Present Illness: The patient is a 67 year old male (b. 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 As per EMS the patients systolic was noted to be in the 60s and they placed a PIV and started a liter of NS prior to arrival in the emergency department. The patient denies chest pain, shortness of breath, headache and dizziness. Denies fever, chills, nausea, vomit, diarrhea and constipation. Denies dysuria, frequency, urgency and hematuria. - Current Medication List Current Medications: Active Medications Acetaminophen (Tylenol -) 650 mg PO Q4H PRN PRN Reason: FEVER Last Admin: 11/24/17 04:41 Dose: 650 mg Acetaminophen (Tylenol -) 650 mg PO Q4H PRN PRN Reason: PAIN LEVEL 1 - 3 Aspirin (Ecotrin -) 81 mg PO DAILY [facility] Last Admin: 11/24/17 10:00 Dose: 81 mg Atorvastatin Calcium (Lipitor -) 40 mg PO HS [facility] Last Admin: 11/23/17 22:23 Dose: Not Given Clopidogrel Bisulfate (Plavix -) 75 mg PO DAILY [facility] Last Admin: 11/24/17 10:00 Dose: 75 mg Dexamethasone (Decadron -) 3 mg PO BID [facility] Last Admin: 11/24/17 10:01 Dose: 3 mg Losartan Potassium (Cozaar -) 25 mg PO DAILY [facility] Last Admin: 11/24/17 10:01 Dose: Not Given Metoprolol Tartrate (Lopressor Injection -) 5 mg IVPUSH Q4H PRN PRN Reason: HYPERTENSION Last Admin: 11/21/17 04:57 Dose: 5 mg Metoprolol Tartrate (Lopressor -) 100 mg PO BID [facility] Last Admin: 11/24/17 10:01 Dose: Not Given Oxycodone HCl (Roxicodone -) 5 mg PO Q6H PRN PRN Reason: PAIN LEVEL 7 - 10 Last Admin: 10/15/18 18:19 Dose: 5 mg Pantoprazole Sodium (Protonix -) 40 mg PO DAILY [facility] Last Admin: 11/24/17 10:00 Dose: 40 mg Tramadol HCl (Ultram -) 50 mg PO Q8H PRN PRN Reason: PAIN LEVEL 4 - 6 Last Admin: 11/22/17 22:18 Dose: 50 mg - Objective Vital Signs: Vital Signs Temperature 98.6 F 11/24/17 09:16 Pulse Rate 101 H 11/24/17 09:16 Respiratory Rate 18 11/24/17 09:16 Blood Pressure 76/52 L 11/24/17 09:16 O2 Sat by Pulse Oximetry (%) 98 11/24/17 09:00 Constitutional: Yes: Calm Eyes: Yes: WNL HENT: Yes: WNL Neck: Yes: WNL Cardiovascular: Yes: Tachycardia, Pulse Irregular, S1 (varies in intensity), S2 Respiratory: Yes: Regular Gastrointestinal: Yes: Soft, Other ...Rectal Exam: Yes: Deferred Genitourinary: No: Anuria Breast(s): Yes: WNL Musculoskeletal: Yes: Muscle Weakness Extremities: Yes: Cool Edema: No Peripheral Pulses WNL: Yes Integumentary: Yes: Incision Wound/Incision: Yes: Clean/Dry (ostomy site) Neurological: Yes: Alert, Confusion, Weakness Psychiatric: Yes: Other (?dementia) Labs: CBC, BMP 11/24/17 05:30 11/23/17 05:30 INR, PTT INR 4.36 (0.83-1.09) H* 11/24/17 05:30 - ....Imaging Other: Image Reviewed (telemetry: AF; periods of RVR) Problem List - Problems (1) Sepsis Assessment/Plan: Now off antibiotics. Code(s): A41.9 - SEPSIS, UNSPECIFIED ORGANISM Qualifiers: Sepsis type: sepsis due to unspecified organism Qualified Code(s): A41.9 - Sepsis, unspecified organism (2) Anemia Assessment/Plan: f/u Hb (12.1-->10.4 over the past 24 hours); post percutaneous nephrostomy 11/16. +hematuria. Off anticoagulants (suprtherapeutic INR despite this; ; liver metastases liekly major contirbuter). Hb stable. ASA and clopidogrel held earlier due to hematuria; now again on both agents. ( Hx CAD-->PCI; if stents were placed> 1 year ago, would stop clopidogrel).. Code(s): D64.9 - ANEMIA, UNSPECIFIED (3) Atrial fibrillation with rapid ventricular response Assessment/Plan: On metoprolol; dose increased again, now 100 mg bid for AF/flutter with recent rapid ventricular rate. Severely reduced LVEF: avoid diltiazem or verapamil. 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 Reportedly has poor appetite. f/u with oncologist, . Would recommend conseervative management for cardiac issues, in veiw of multi- organ and bone metastases with liver dysfunction; pt also appears to be disoriented. Code(s): C67.9 - MALIGNANT NEOPLASM OF BLADDER, UNSPECIFIED; C78.00 - SECONDARY MALIGNANT NEOPLASM OF UNSPECIFIED LUNG (5) CAD (coronary artery disease) Code(s): I25.10 - ATHSCL HEART DISEASE OF [place] CORONARY ARTERY W/O ANG PCTRS Qualifiers: Coronary Disease-Associated Artery/Lesion type: [place] artery [place] vs. transplanted heart: [place] heart Associated angina: without angina Qualified Code(s): I25.10 - Atherosclerotic heart disease of [place] coronary artery without angina pectoris (6) Cardiomyopathy Assessment/Plan: severely reduced LVEF. On metoprolol. Started losartan 25 mg daily (lheld presently due to periods of hypotension). Code(s): I42.9 - CARDIOMYOPATHY, UNSPECIFIED Qualifiers: Cardiomyopathy type: ischemic Qualified Code(s): I25.5 - Ischemic cardiomyopathy (7) Chronic systolic (congestive) heart failure Assessment/Plan: On metoprolol for HR control (AF) and systolic CHF. Started ARB (losartan 25 mg daily). Add aldactone later if BP, renal function, and electrolytes allow. This is problematic because of periods of hypotension; even losartan has had to be held lately. F/u BUN/Cr, Is and Os, daily weight, electrolytes. Code(s): I50.22 - CHRONIC SYSTOLIC (CONGESTIVE) HEART FAILURE (8) Hyperlipidemia Code(s): E78.5 - HYPERLIPIDEMIA, UNSPECIFIED Qualifiers: Hyperlipidemia type: pure hypercholesterolemia Qualified Code(s): E78.00 - Pure hypercholesterolemia, unspecified; E78.0 - Pure hypercholesterolemia (9) Hypertension Code(s): I10 - ESSENTIAL (PRIMARY) HYPERTENSION Qualifiers: Hypertension type: essential hypertension Qualified Code(s): I10 - Essential (primary) hypertension (10) S/P coronary artery stent placement Code(s): Z95.5 - PRESENCE OF CORONARY ANGIOPLASTY IMPLANT AND GRAFT (11) Supratherapeutic INR Assessment/Plan: INR again >4; off warfarin. Metatstatic CA noted in liver a likely strong contributer to derangement in coagulation. Will discontinue ASA. Code(s): R79.1 - ABNORMAL COAGULATION PROFILE (12) Hypokalemia Assessment/Plan: repleted K; f/u all electrolytes. On ARB (losartan 25 mg daily); besides aid in systolic CHF, may help balance K+ .However, has had to be held lately due to hypotension. Code(s): E87.6 - HYPOKALEMIA (13) Hypoalbuminemia Code(s): E88.09 - OTH DISORDERS OF PLASMA-PROTEIN METABOLISM, NEC
--- NOTE | 2017-11-24 13:26 | PN ---
Progress Note, Physician History of Present Illness: Pt seen and examined at bedside. He appears comfortable. - Current Medication List Current Medications: Active Medications Acetaminophen (Tylenol -) 650 mg PO Q4H PRN PRN Reason: FEVER Last Admin: 11/24/17 04:41 Dose: 650 mg Acetaminophen (Tylenol -) 650 mg PO Q4H PRN PRN Reason: PAIN LEVEL 1 - 3 Aspirin (Asa -) 81 mg PO DAILY [facility] Atorvastatin Calcium (Lipitor -) 40 mg PO HS [facility] Last Admin: 11/23/17 22:23 Dose: Not Given Clopidogrel Bisulfate (Plavix -) 75 mg PO DAILY [facility] Last Admin: 11/24/17 10:00 Dose: 75 mg Dexamethasone (Decadron -) 3 mg PO BID [facility] Last Admin: 11/24/17 10:01 Dose: 3 mg Losartan Potassium (Cozaar -) 25 mg PO DAILY [facility] Last Admin: 11/24/17 10:01 Dose: Not Given Metoprolol Tartrate (Lopressor Injection -) 5 mg IVPUSH Q4H PRN PRN Reason: HYPERTENSION Last Admin: 11/21/17 04:57 Dose: 5 mg Metoprolol Tartrate (Lopressor -) 100 mg PO BID [facility] Last Admin: 11/24/17 10:01 Dose: Not Given Oxycodone HCl (Roxicodone -) 5 mg PO Q6H PRN PRN Reason: PAIN LEVEL 7 - 10 Last Admin: 11/23/17 18:19 Dose: 5 mg Pantoprazole Sodium (Protonix -) 40 mg PO DAILY [facility] Last Admin: 11/24/17 10:00 Dose: 40 mg Tramadol HCl (Ultram -) 50 mg PO Q8H PRN PRN Reason: PAIN LEVEL 4 - 6 Last Admin: 11/22/17 22:18 Dose: 50 mg - Objective Vital Signs: Vital Signs Temperature 98.6 F 11/24/17 09:16 Pulse Rate 106 H 11/24/17 10:38 Respiratory Rate 16 11/24/17 10:38 Blood Pressure 78/47 L 11/24/17 10:38 O2 Sat by Pulse Oximetry (%) 98 11/24/17 09:00 Constitutional: Yes: Calm Eyes: Yes: Conjunctiva Clear HENT: Yes: Atraumatic Neck: Yes: Supple Cardiovascular: Yes: S1, S2 Respiratory: Yes: CTA Bilaterally Gastrointestinal: Yes: Soft Genitourinary: Yes: Other (ileal conduit and nephrostomy) Musculoskeletal: Yes: Muscle Weakness Edema: No Neurological: Yes: Oriented Psychiatric: Yes: Oriented Labs: CBC, BMP 11/24/17 05:30 11/23/17 05:30 INR, PTT INR 4.36 (0.83-1.09) H* 11/24/17 05:30 Problem List - Problems (1) Hydronephrosis Code(s): N13.30 - UNSPECIFIED HYDRONEPHROSIS (2) Sepsis Code(s): A41.9 - SEPSIS, UNSPECIFIED ORGANISM Qualifiers: Sepsis type: sepsis due to unspecified organism Qualified Code(s): A41.9 - Sepsis, unspecified organism (3) UTI (urinary tract infection) Code(s): N39.0 - URINARY TRACT INFECTION, SITE NOT SPECIFIED Qualifiers: Urinary tract infection type: acute cystitis Hematuria presence: with hematuria Qualified Code(s): N30.01 - Acute cystitis with hematuria (4) Renal dysfunction Code(s): N28.9 - DISORDER OF KIDNEY AND URETER, UNSPECIFIED Assessment/Plan Current Medications Generic Name Dose Route Start Last Admin Trade Name Freq PRN Reason Stop Dose Admin Acetaminophen 650 mg 11/18/17 16:59 11/24/17 04:41 Tylenol - PO 650 mg Q4H PRN Administration FEVER Acetaminophen 650 mg 11/18/17 16:59 Tylenol - PO Q4H PRN PAIN LEVEL 1 - 3 Aspirin 81 mg 11/25/17 10:00 Asa - PO DAILY [facility] Atorvastatin Calcium 40 mg 11/18/17 22:00 11/23/17 22:23 Lipitor - PO Not Given HS [facility] Clopidogrel Bisulfate 75 mg 11/18/17 10:00 11/24/17 10:00 Plavix - PO 75 mg DAILY [facility] Administration Dexamethasone 3 mg 11/21/17 10:00 11/24/17 10:01 Decadron - PO 3 mg BID [facility] Administration Losartan Potassium 25 mg 11/18/17 16:30 11/24/17 10:01 Cozaar - PO Not Given DAILY [facility] Metoprolol Tartrate 5 mg 11/20/17 08:47 11/21/17 04:57 Lopressor Injection - IVPUSH 5 mg Q4H PRN Administration HYPERTENSION Metoprolol Tartrate 100 mg 11/21/17 10:00 11/24/17 10:01 Lopressor - PO Not Given BID [facility] Oxycodone HCl 5 mg 11/18/17 17:02 11/23/17 18:19 Roxicodone - PO 5 mg Q6H PRN Administration PAIN LEVEL 7 - 10 Pantoprazole Sodium 40 mg 11/24/17 10:00 11/24/17 10:00 Protonix - PO 40 mg DAILY [facility] Administration Tramadol HCl 50 mg 11/18/17 17:01 11/22/17 22:18 Ultram - PO 50 mg Q8H PRN Administration PAIN LEVEL 4 - 6 Impression 1. CKD 2. altered mental status 3. a-fib 4. DM 5. HTN 6. hx bladder cancer 7. leukocytosis 8. sepsis 9. hyperkalemia 10. chon Plan - urology input appreciated - hematuria is improved - monitor renal function - monitor coags - monitor urine output - will follow PRN Dr Baltazar
[2017-11-24] MEDS: oxyCODONE HCL 5 MG TABLET PO PRN (18:08)
[2017-11-24] MEDS: ATORVASTATIN CA 40 MG TABLET (FP) PO SCH (21:35)
[2017-11-25 08:08] LABS: ANION GAP 8 MMOL/L (8-16); BLOOD UREA NITROGEN 46 mg/dL (7-18); CALCIUM 9.9 mg/dL (8.5-10.1); CHLORIDE 110 mmol/L (98-107); CO2 22 mmol/L (21-32); CREATININE 1.1 mg/dL (0.55-1.3); GLUCOSE,RANDOM 187 mg/dL (74-106); POTASSIUM 4.8 mmol/L (3.5-5.1); SODIUM 141 mmol/L (136-145)
[2017-11-25 08:41] LABS: INR 3.08 (0.83-1.09); PROTHROMBIN TIME (PATIENT) 36.8 SEC (9.7-13.0)
[2017-11-25] MEDS: LOSARTAN POTASSIUM 25 MG TABLET PO SCH (09:08)
[2017-11-25] MEDS: METOPROLOL TARTRATE 50 MG TABLET (FP) PO SCH ×3 (09:08→22:34)
[2017-11-25] MEDS: ACETAMINOPHEN 325 MG TABLET (FP) PO PRN (10:04)
[2017-11-25] MEDS ORDERED: PT OWN MED DRAWER 7, Y5N ONE ×2 (10:30→22:33)
[2017-11-25] MEDS: CLOPIDOGREL BISULFATE 75 MG TABLET (FP) PO SCH (10:34)
[2017-11-25] MEDS: ASPIRIN 81 MG CHEWABLE TABLETS PO SCH (10:34)
[2017-11-25] MEDS: PANTOPRAZOLE 40 MG TABLET (FP) PO SCH (10:34)
[2017-11-25] MEDS: DEXAMETHASONE 1.5 MG TABLET PO SCH ×2 (10:34→22:34)
--- NOTE | 2017-11-25 12:18 | PN ---
Progress Note, Physician - Current Medication List Current Medications: Active Medications Acetaminophen (Tylenol -) 650 mg PO Q4H PRN PRN Reason: FEVER Last Admin: 11/25/17 10:04 Dose: 650 mg Acetaminophen (Tylenol -) 650 mg PO Q4H PRN PRN Reason: PAIN LEVEL 1 - 3 Aspirin (Asa -) 81 mg PO DAILY [facility] Last Admin: 11/25/17 10:34 Dose: 81 mg Atorvastatin Calcium (Lipitor -) 40 mg PO HS [facility] Last Admin: 11/24/17 21:35 Dose: 40 mg Clopidogrel Bisulfate (Plavix -) 75 mg PO DAILY [facility] Last Admin: 11/25/17 10:34 Dose: 75 mg Dexamethasone (Decadron -) 3 mg PO BID [facility] Last Admin: 11/25/17 10:34 Dose: 3 mg Losartan Potassium (Cozaar -) 25 mg PO DAILY [facility] Last Admin: 11/25/17 09:08 Dose: Not Given Metoprolol Tartrate (Lopressor Injection -) 5 mg IVPUSH Q4H PRN PRN Reason: HYPERTENSION Last Admin: 11/21/17 04:57 Dose: 5 mg Metoprolol Tartrate (Lopressor -) 100 mg PO BID [facility] Last Admin: 11/25/17 09:08 Dose: Not Given Oxycodone HCl (Roxicodone -) 5 mg PO Q6H PRN PRN Reason: PAIN LEVEL 7 - 10 Last Admin: 11/24/17 18:08 Dose: 5 mg Pantoprazole Sodium (Protonix -) 40 mg PO DAILY [facility] Last Admin: 11/25/17 10:34 Dose: 40 mg Tramadol HCl (Ultram -) 50 mg PO Q8H PRN PRN Reason: PAIN LEVEL 4 - 6 Last Admin: 11/22/17 22:18 Dose: 50 mg - Objective Vital Signs: Vital Signs Temperature 97.8 F 11/25/17 10:49 Pulse Rate 93 H 11/25/17 10:49 Respiratory Rate 18 11/25/17 10:49 Blood Pressure 101/59 L 11/25/17 10:49 O2 Sat by Pulse Oximetry (%) 98 11/25/17 10:51 Eyes: Yes: WNL, Conjunctiva Clear, EOM Intact HENT: Yes: WNL, Atraumatic, Normocephalic Neck: Yes: WNL, Supple, Trachea Midline Cardiovascular: Yes: WNL, Regular Rate and Rhythm Respiratory: Yes: WNL, Regular, CTA Bilaterally Gastrointestinal: Yes: WNL, Normal Bowel Sounds Genitourinary: Yes: WNL Musculoskeletal: Yes: WNL Extremities: Yes: WNL Edema: No Integumentary: Yes: WNL Neurological: Yes: WNL, Alert, Oriented ...Motor Strength: WNL Psychiatric: Yes: WNL Labs: CBC, BMP 11/24/17 05:30 11/25/17 05:30 INR, PTT INR 3.08 (0.83-1.09) H 11/25/17 05:30 Assessment/Plan - Problems (1) Sepsis Assessment/Plan: Now off antibiotics. Code(s): A41.9 - SEPSIS, UNSPECIFIED ORGANISM Qualifiers: Sepsis type: sepsis due to unspecified organism Qualified Code(s): A41.9 - Sepsis, unspecified organism (2) Anemia Assessment/Plan: f/u Hb (12.1-->10.4 over the past 24 hours); post percutaneous nephrostomy 11/16. +hematuria. Off anticoagulants (suprtherapeutic INR despite this; ; liver metastases liekly major contirbuter). Hb stable. ASA and clopidogrel held earlier due to hematuria; now again on both agents. ( Hx CAD-->PCI; if stents were placed> 1 year ago, would stop clopidogrel).. Code(s): D64.9 - ANEMIA, UNSPECIFIED (3) Atrial fibrillation with rapid ventricular response Assessment/Plan: On metoprolol; dose increased again, now 100 mg bid for AF/flutter with recent rapid ventricular rate. Severely reduced LVEF: avoid diltiazem or verapamil. 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 Reportedly has poor appetite. f/u with oncologist, . Would recommend conseervative management for cardiac issues, in veiw of multi- organ and bone metastases with liver dysfunction; pt also appears to be disoriented. Code(s): C67.9 - MALIGNANT NEOPLASM OF BLADDER, UNSPECIFIED; C78.00 - SECONDARY MALIGNANT NEOPLASM OF UNSPECIFIED LUNG (5) CAD (coronary artery disease) Code(s): I25.10 - ATHSCL HEART DISEASE OF [place] CORONARY ARTERY W/O ANG PCTRS Qualifiers: Coronary Disease-Associated Artery/Lesion type: [place] artery [place] vs. transplanted heart: [place] heart Associated angina: without angina Qualified Code(s): I25.10 - Atherosclerotic heart disease of [place] coronary artery without angina pectoris (6) Cardiomyopathy Assessment/Plan: severely reduced LVEF. On metoprolol. Started losartan 25 mg daily (lheld presently due to periods of hypotension). Code(s): I42.9 - CARDIOMYOPATHY, UNSPECIFIED Qualifiers: Cardiomyopathy type: ischemic Qualified Code(s): I25.5 - Ischemic cardiomyopathy (7) Chronic systolic (congestive) heart failure Assessment/Plan: On metoprolol for HR control (AF) and systolic CHF. Started ARB (losartan 25 mg daily). Add aldactone later if BP, renal function, and electrolytes allow. This is problematic because of periods of hypotension; even losartan has had to be held lately. F/u BUN/Cr, Is and Os, daily weight, electrolytes. Code(s): I50.22 - CHRONIC SYSTOLIC (CONGESTIVE) HEART FAILURE (8) Hyperlipidemia Code(s): E78.5 - HYPERLIPIDEMIA, UNSPECIFIED Qualifiers: Hyperlipidemia type: pure hypercholesterolemia Qualified Code(s): E78.00 - Pure hypercholesterolemia, unspecified; E78.0 - Pure hypercholesterolemia (9) Hypertension Code(s): I10 - ESSENTIAL (PRIMARY) HYPERTENSION Qualifiers: Hypertension type: essential hypertension Qualified Code(s): I10 - Essential (primary) hypertension (10) S/P coronary artery stent placement Code(s): Z95.5 - PRESENCE OF CORONARY ANGIOPLASTY IMPLANT AND GRAFT (11) Supratherapeutic INR Assessment/Plan: INR again >4; off warfarin. Metatstatic CA noted in liver a likely strong contributer to derangement in coagulation. Will discontinue ASA. Code(s): R79.1 - ABNORMAL COAGULATION PROFILE (12) Hypokalemia Assessment/Plan: repleted K; f/u all electrolytes. On ARB (losartan 25 mg daily); besides aid in systolic CHF, may help balance K+ .However, has had to be held lately due to hypotension. Code(s): E87.6 - HYPOKALEMIA (13) Hypoalbuminemia Code(s): E88.09 - OTH DISORDERS OF PLASMA-PROTEIN METABOLISM, NEC
[2017-11-25] MEDS: METOPROLOL TARTRATE 5 MG/5 ML VIAL IVPUSH PRN ×2 (12:30→18:05)
[2017-11-25] MEDS: oxyCODONE HCL 5 MG TABLET PO PRN (12:51)
--- NOTE | 2017-11-25 16:27 | PN ---
Progress Note, Physician Chief Complaint: hydronephrosis anemia CAD a-fib right ureteral obstruction/metastatic TCC History of Present Illness: s/p percutaneous nephrostomy tube +hematuria Tele for a-fib/a-flutter- in 160's at this time Lopressor 100 mg po ordered by Cardiology Warfarin on hold for supra-therapeutic INR - Current Medication List Current Medications: Active Medications Acetaminophen (Tylenol -) 650 mg PO Q4H PRN PRN Reason: FEVER Last Admin: 11/25/17 10:04 Dose: 650 mg Acetaminophen (Tylenol -) 650 mg PO Q4H PRN PRN Reason: PAIN LEVEL 1 - 3 Aspirin (Asa -) 81 mg PO DAILY [facility] Last Admin: 11/25/17 10:34 Dose: 81 mg Atorvastatin Calcium (Lipitor -) 40 mg PO HS [facility] Last Admin: 11/24/17 21:35 Dose: 40 mg Clopidogrel Bisulfate (Plavix -) 75 mg PO DAILY [facility] Last Admin: 11/25/17 10:34 Dose: 75 mg Dexamethasone (Decadron -) 3 mg PO BID [facility] Last Admin: 11/25/17 10:34 Dose: 3 mg Losartan Potassium (Cozaar -) 25 mg PO DAILY [facility] Last Admin: 11/25/17 09:08 Dose: Not Given Metoprolol Tartrate (Lopressor Injection -) 5 mg IVPUSH Q4H PRN PRN Reason: HYPERTENSION Last Admin: 11/25/17 12:30 Dose: 5 mg Metoprolol Tartrate (Lopressor -) 100 mg PO BID [facility] Last Admin: 11/25/17 16:18 Dose: 100 mg Oxycodone HCl (Roxicodone -) 5 mg PO Q6H PRN PRN Reason: PAIN LEVEL 7 - 10 Last Admin: 11/25/17 12:51 Dose: 5 mg Pantoprazole Sodium (Protonix -) 40 mg PO DAILY [facility] Last Admin: 11/25/17 10:34 Dose: 40 mg Tramadol HCl (Ultram -) 50 mg PO Q8H PRN PRN Reason: PAIN LEVEL 4 - 6 Last Admin: 11/22/17 22:18 Dose: 50 mg - Objective Vital Signs: Vital Signs Temperature 98.9 F 11/25/17 14:13 Pulse Rate 158 H 11/25/17 14:13 Respiratory Rate 20 11/25/17 14:13 Blood Pressure 79/51 L 11/25/17 14:13 O2 Sat by Pulse Oximetry (%) 98 11/25/17 10:51 Constitutional: Yes: Well Nourished, No Distress, Calm Cardiovascular: Yes: Tachycardia, Pulse Irregular Respiratory: Yes: Regular Gastrointestinal: Yes: Normal Bowel Sounds, Soft, Abdomen, Obese Genitourinary: Yes: Other (nephrostomy tube) Musculoskeletal: Yes: WNL Extremities: Yes: WNL Edema: No Peripheral Pulses WNL: Yes Neurological: Yes: Alert, Oriented Psychiatric: Yes: Alert, Oriented Labs: CBC, BMP 11/24/17 05:30 11/25/17 05:30 INR, PTT INR 3.08 (0.83-1.09) H 11/25/17 05:30 Problem List - Problems (1) Adrenal mass Assessment/Plan: -cont on decadron -seen by assistant chief engineer Code(s): E27.9 - DISORDER OF ADRENAL GLAND, UNSPECIFIED (2) Hydronephrosis Assessment/Plan: -R hydronephrosis -s/p R percutaneous nephrostomy tube -nephrology and urology on board -diuretic renal scan to assess patency or right ureter in AM Code(s): N13.30 - UNSPECIFIED HYDRONEPHROSIS (3) Sepsis Assessment/Plan: -finished IV ABT -continue routine labs monitor CBC -pt afebrile, last lactic acid WNL Code(s): A41.9 - SEPSIS, UNSPECIFIED ORGANISM Qualifiers: Sepsis type: sepsis due to unspecified organism Qualified Code(s): A41.9 - Sepsis, unspecified organism (4) Supratherapeutic INR Assessment/Plan: -cardiology on board and consult appreciated -warfarin on hold -PT/INR Daily Code(s): R79.1 - ABNORMAL COAGULATION PROFILE (5) Tachycardia Assessment/Plan: -cardiology on board -Losartan 25mg tab PO QD -cont with tele monitoring -already on lopressor 100 mg po bid, extra dose given by cardiology this afternoon -Added Cardizem 30 mg po TID -Cardizem 10 mg IVP Q4H PRN for HR >100 BPM Code(s): R00.0 - TACHYCARDIA, UNSPECIFIED (6) UTI (urinary tract infection) Assessment/Plan: -treated with ABT -ID on board -afebrile, asymptomatic Code(s): N39.0 - URINARY TRACT INFECTION, SITE NOT SPECIFIED Qualifiers: Urinary tract infection type: acute cystitis Hematuria presence: with hematuria Qualified Code(s): N30.01 - Acute cystitis with hematuria (7) Anemia Assessment/Plan: -serial CBC x 5 to monitor H/H -stool occult negative -iron profile shows iron deficiency, B12 and Thyroid unremarkable -Venofer Infusion x 1 yesterday Code(s): D64.9 - ANEMIA, UNSPECIFIED (8) Atrial fibrillation with rapid ventricular response Assessment/Plan: -tele monitoring -HR consistently >160 -Hold Warfarin for now -cardiology on board -Ordered Cardizem 10 mg IVP Q4H PRN for HR >110 BPM -Add Cardizem 30 mg po TID Code(s): I48.91 - UNSPECIFIED ATRIAL FIBRILLATION (9) 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 Assessment/Plan: -oncology on board -palliative consult Code(s): C67.9 - MALIGNANT NEOPLASM OF BLADDER, UNSPECIFIED; C78.7 - SECONDARY MALIG NEOPLASM OF LIVER AND INTRAHEPATIC BILE DUCT (10) Diabetes Assessment/Plan: -repeat A1C at 6.7 -Although on Decadron 4 mg, BGM well below 200, would d/c BGM and novolog sliding scale -Diabetic diet Code(s): E11.9 - TYPE 2 DIABETES MELLITUS WITHOUT COMPLICATIONS (11) Hyperthyroidism Assessment/Plan: -Endocrinology on board -free T4 dialysis pending Code(s): E05.90 - THYROTOXICOSIS, UNSP WITHOUT THYROTOXIC CRISIS OR STORM Assessment/Plan see problem list Pt minimally participating in Physical therapy Seen by Palliative care team
[2017-11-25] MEDS ORDERED: dilTIAZem HCL 50 MG/10 ML - 10 ML VIAL IVPUSH PRN (16:30)
[2017-11-25] MEDS ORDERED: SODIUM CHLORIDE 1,000 ML IV SCH ×2 (18:15→19:15)
--- NOTE | 2017-11-25 18:25 | HOSP ---
Subjective - Review of Symptoms Events since last encounter: Asked to see patient for hypotension (71/42) and tachycardia (154) since 12:30 PM. Morning dose of Lopressor 100 held for BP 100/55, P86. At around 12 PM, HR in 160s and Lopresor 5 mg IVP given without effect. At 4:15 PM, BP 71/47, HR 162, pilot plant technician Dr. Michelle notified and he ordered Lopressor 100 mg PO. At 6 PM, BP 71/42 ,HR 154, patient seen and examined by this marketing writer. Lopressor 5 mg IVP with NS 200 cc bolus x 1 hr, then decrease to 60 cc/hr. General: Yes: Fatigue, Appetite. No: Chills, Night Sweats, Malaise, Other HEENT: No: Head Aches, Visual Changes, Eye Pain, Ear Pain, Dysphasia, Sinus Congestion, Post Nasal Drip, Sore Throat, Other Pulmonary: No: Dyspnea, Cough, Pleuritic Chest Pain, Other Cardiovascular: No: Chest Pain, Palpitations, Orthopnea, Paroxysmal Noc. Dyspnea , Edema, Light Headedness, Other Gastrointestinal: No: Nausea, NOSYM, Vomiting, Abdominal Pain, Diarrhea, Constipation, Melena, Hematochezia, Other Genitourinary: No: Dysuria, NOSYM, Frequency, Incontinence, Hematuria, Retention , Other Neurological: No: Weakness, Numbness, Incoordination, Change in speech, Confusion, Seizures, Other Physical Examination Vital Signs: Vital Signs Temperature 98.9 F 11/25/17 14:13 Pulse Rate 154 H 11/25/17 18:05 Respiratory Rate 20 11/25/17 14:13 Blood Pressure 71/42 L 11/25/17 18:05 O2 Sat by Pulse Oximetry (%) 98 11/25/17 10:51 Constitutional: Yes: Pallor Eyes: Yes: WNL, Conjunctiva Clear, EOM Intact HENT: Yes: WNL, Atraumatic, Normocephalic Neck: Yes: WNL, Supple, Trachea Midline Cardiovascular: Yes: Tachycardia Respiratory: Yes: WNL, Regular, CTA Bilaterally Gastrointestinal: Yes: WNL, Normal Bowel Sounds Musculoskeletal: Yes: WNL Extremities: Yes: WNL Edema: No Integumentary: Yes: WNL Neurological: Yes: WNL, Alert, Oriented ...Motor Strength: WNL Psychiatric: Yes: WNL Labs: CBC, BMP 11/24/17 05:30 11/25/17 05:30 Hospitalist Encounter Recommendations/Interventions: Metoprolol 5 mg IVP x 1 1L NS @ 200cc/hr x 1 hr then decrease to 60 cc/hr. Critical Care Total Critical Care Time (in minutes): 15
[2017-11-25] MEDS ORDERED: METOPROLOL TARTRATE 5 MG/5 ML VIAL IVPUSH ONE (18:45)
[2017-11-25] MEDS: ATORVASTATIN CA 40 MG TABLET (FP) PO SCH (22:34)
--- NOTE | 2017-11-25 23:19 | PN ---
Progress Note, Physician Chief Complaint: awake alert feel weak History of Present Illness: dm,sp nephrostomy tube,afib,chf,hyperthyroidism,hypoadrenal - Current Medication List Current Medications: Active Medications Acetaminophen (Tylenol -) 650 mg PO Q4H PRN PRN Reason: FEVER Last Admin: 11/25/17 10:04 Dose: 650 mg Acetaminophen (Tylenol -) 650 mg PO Q4H PRN PRN Reason: PAIN LEVEL 1 - 3 Aspirin (Asa -) 81 mg PO DAILY [facility] Last Admin: 11/25/17 10:34 Dose: 81 mg Atorvastatin Calcium (Lipitor -) 40 mg PO HS [facility] Last Admin: 11/25/17 22:34 Dose: 40 mg Clopidogrel Bisulfate (Plavix -) 75 mg PO DAILY [facility] Last Admin: 11/25/17 10:34 Dose: 75 mg Dexamethasone (Decadron -) 3 mg PO BID [facility] Last Admin: 11/25/17 22:34 Dose: 3 mg Sodium Chloride (Normal Saline -) 1,000 mls @ 60 mls/hr IV ASDIR [facility] Stop: 11/26/17 11:54 Last Admin: 11/25/17 19:02 Dose: 60 mls/hr Losartan Potassium (Cozaar -) 25 mg PO DAILY [facility] Last Admin: 11/25/17 09:08 Dose: Not Given Metoprolol Tartrate (Lopressor Injection -) 5 mg IVPUSH Q4H PRN PRN Reason: HYPERTENSION Last Admin: 11/25/17 18:05 Dose: 5 mg Metoprolol Tartrate (Lopressor -) 100 mg PO BID [facility] Last Admin: 11/25/17 22:34 Dose: Not Given Oxycodone HCl (Roxicodone -) 5 mg PO Q6H PRN PRN Reason: PAIN LEVEL 7 - 10 Last Admin: 11/25/17 12:51 Dose: 5 mg Pantoprazole Sodium (Protonix -) 40 mg PO DAILY [facility] Last Admin: 11/25/17 10:34 Dose: 40 mg Tramadol HCl (Ultram -) 50 mg PO Q8H PRN PRN Reason: PAIN LEVEL 4 - 6 Last Admin: 11/22/17 22:18 Dose: 50 mg - Objective Vital Signs: Vital Signs Temperature 98.8 F 11/25/17 17:30 Pulse Rate 87 11/25/17 18:25 Respiratory Rate 20 11/25/17 18:25 Blood Pressure 81/46 L 11/25/17 18:25 O2 Sat by Pulse Oximetry (%) 98 11/25/17 10:51 Constitutional: Yes: Anxious Eyes: Yes: EOM Intact HENT: Yes: Normocephalic Neck: Yes: Trachea Midline Cardiovascular: Yes: Tachycardia, Pulse Irregular Respiratory: Yes: On Nasal O2, Rales Gastrointestinal: Yes: Normal Bowel Sounds ...Rectal Exam: Yes: Deferred Musculoskeletal: Yes: Back Pain, Muscle Weakness Edema: LLE: 1+, RLE: 1+ Neurological: Yes: Alert, Oriented, Weakness Labs: CBC, BMP 11/24/17 05:30 11/25/17 05:30 INR, PTT INR 3.08 (0.83-1.09) H 11/25/17 05:30 Problem List - Problems (1) HEYDI (acute kidney injury) Code(s): N17.9 - ACUTE KIDNEY FAILURE, UNSPECIFIED (2) Adrenal mass Code(s): E27.9 - DISORDER OF ADRENAL GLAND, UNSPECIFIED (3) Hydronephrosis Code(s): N13.30 - UNSPECIFIED HYDRONEPHROSIS (4) Sepsis Code(s): A41.9 - SEPSIS, UNSPECIFIED ORGANISM Qualifiers: Sepsis type: sepsis due to unspecified organism Qualified Code(s): A41.9 - Sepsis, unspecified organism (5) Supratherapeutic INR Code(s): R79.1 - ABNORMAL COAGULATION PROFILE (6) Anemia Code(s): D64.9 - ANEMIA, UNSPECIFIED Assessment/Plan Current Active Problems HEYDI (acute kidney injury) (Acute) Adrenal mass (Acute) Hydronephrosis (Acute) Hyperthyroidism (Acute) Hypoalbuminemia (Acute) Hypokalemia (Acute) Sepsis (Acute) Supratherapeutic INR (Acute) Tachycardia (Acute) UTI (urinary tract infection) (Acute) Abnormal Lab Results 11/25/17 11/25/17 05:30 05:30 PT with INR 36.80 H INR 3.08 H Chloride 110 H BUN 46 H Random Glucose 187 H Laboratory Results - last 24 hr 11/25/17 11/25/17 05:30 05:30 PT with INR 36.80 H INR 3.08 H Sodium 141 Potassium 4.8 Chloride 110 H Carbon Dioxide 22 Anion Gap 8 BUN 46 H Creatinine 1.1 Creat Clearance w eGFR > 60 Random Glucose 187 H Calcium 9.9 Laboratory Tests 11/17/17 11/21/17 11/21/17 06:45 05:30 05:30 TSH 0.32 L D Free T4 1.28 H Cortisol AM Sample 5.8 plan: cortef 50mg bid florinef .1mg daily dc dexamethasone methimazole 10mg bid to normalize free t4
[2017-11-25] MEDS: METHIMAZOLE 10 MG TABLET (FP) PO SCH (23:37)
[2017-11-26] MEDS ORDERED: INSULIN (NOVOLOG) ASPART 100 UNITS/ML 10ML VIAL ONE (07:22)
[2017-11-26 07:29] LABS: INR 2.5 (0.83-1.09); PROTHROMBIN TIME (PATIENT) 29.8 SEC (9.7-13.0)
[2017-11-26 07:37] LABS: BASO % 0.2 % (0-2.0); EOS % 0.3 % (0-4.5); HEMATOCRIT 36.1 % (35.4-49); HEMOGLOBIN 11.1 GM/dL (11.7-16.9); LYMPH % 2.9 % (8-40); MCH 26.6 pg (25.7-33.7); MCHC 30.7 g/dl (32.0-35.9); MEAN CELL VOLUME 86.7 fl (80-96); MEAN PLT VOLUME 10.6 fl (7.5-11.1); MONO % 3.6 % (3.8-10.2); PLATELET COUNT 155 K/MM3 (134-434); RBC 4.16 M/mm3 (4.00-5.60); RDW 20.8 % (11.9-15.9); WHITE BLOOD COUNT 16.5 K/mm3 (4.0-10.0)
[2017-11-26 07:57] LABS: ALBUMIN 1.9 g/dl (3.4-5.0); ALK PHOS 378 U/L (45-117); ANION GAP 9 MMOL/L (8-16); BILIRUBIN,TOTAL 0.8 mg/dL (0.2-1); BLOOD UREA NITROGEN 48 mg/dL (7-18); CALCIUM 10.7 mg/dL (8.5-10.1); CHLORIDE 111 mmol/L (98-107); CO2 23 mmol/L (21-32); GLUCOSE,RANDOM 149 mg/dL (74-106); POTASSIUM 4.9 mmol/L (3.5-5.1); SGOT/AST 30 U/L (15-37); SGPT/ALT 72 U/L (13-61); SODIUM 142 mmol/L (136-145); TOT PROT 5.8 g/dl (6.4-8.2)
[2017-11-26] MEDS: METOPROLOL TARTRATE 50 MG TABLET (FP) PO SCH ×3 (08:44→21:45)
[2017-11-26] MEDS: ASPIRIN 81 MG CHEWABLE TABLETS PO SCH ×2 (08:44→10:22)
[2017-11-26] MEDS: LOSARTAN POTASSIUM 25 MG TABLET PO SCH ×2 (08:45→10:22)
[2017-11-26] MEDS: CLOPIDOGREL BISULFATE 75 MG TABLET (FP) PO SCH ×2 (08:45→10:22)
[2017-11-26] MEDS ORDERED: HYDROCORTISONE 20 MG TABLET PO SCH (10:00)
--- NOTE | 2017-11-26 10:12 | PN ---
Progress Note, Physician Chief Complaint: Pt denies chest pain or dyspnea; initially denies abdominal discomfort, but later says he has pain, though is vague in describing it. History of Present Illness: The patient is a 67 year old male (b. 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 As per EMS the patients systolic was noted to be in the 60s and they placed a PIV and started a liter of NS prior to arrival in the emergency department. The patient denies chest pain, shortness of breath, headache and dizziness. Denies fever, chills, nausea, vomit, diarrhea and constipation. Denies dysuria, frequency, urgency and hematuria. - Current Medication List Current Medications: Active Medications Acetaminophen (Tylenol -) 650 mg PO Q4H PRN PRN Reason: FEVER Last Admin: 11/25/17 10:04 Dose: 650 mg Acetaminophen (Tylenol -) 650 mg PO Q4H PRN PRN Reason: PAIN LEVEL 1 - 3 Aspirin (Asa -) 81 mg PO DAILY [facility] Last Admin: 11/26/17 08:44 Dose: 81 mg Atorvastatin Calcium (Lipitor -) 40 mg PO HS [facility] Last Admin: 11/25/17 22:34 Dose: 40 mg Clopidogrel Bisulfate (Plavix -) 75 mg PO DAILY [facility] Last Admin: 11/26/17 08:45 Dose: 75 mg Fludrocortisone Acetate (Florinef -) 0.1 mg PO DAILY [facility] Hydrocortisone 20 mg/ (Hydrocortisone 5 mg) 25 mg PO BID [facility] Sodium Chloride (Normal Saline -) 1,000 mls @ 60 mls/hr IV ASDIR [facility] Stop: 11/26/17 11:54 Last Admin: 11/25/17 19:02 Dose: 60 mls/hr Losartan Potassium (Cozaar -) 25 mg PO DAILY [facility] Last Admin: 11/26/17 08:45 Dose: 25 mg Methimazole (Tapazole -) 10 mg PO BID [facility] Last Admin: 11/25/17 23:37 Dose: 10 mg Metoprolol Tartrate (Lopressor Injection -) 5 mg IVPUSH Q4H PRN PRN Reason: HYPERTENSION Last Admin: 11/25/17 18:05 Dose: 5 mg Metoprolol Tartrate (Lopressor -) 100 mg PO BID [facility] Last Admin: 11/26/17 08:44 Dose: 100 mg Oxycodone HCl (Roxicodone -) 5 mg PO Q6H PRN PRN Reason: PAIN LEVEL 7 - 10 Last Admin: 11/25/17 12:51 Dose: 5 mg Pantoprazole Sodium (Protonix -) 40 mg PO DAILY [facility] Last Admin: 11/25/17 10:34 Dose: 40 mg Tramadol HCl (Ultram -) 50 mg PO Q8H PRN PRN Reason: PAIN LEVEL 4 - 6 Last Admin: 11/22/17 22:18 Dose: 50 mg - Objective Vital Signs: Vital Signs Temperature 97.8 F 11/26/17 06:31 Pulse Rate 90 11/26/17 08:49 Respiratory Rate 18 11/26/17 08:49 Blood Pressure 116/62 11/26/17 08:49 O2 Sat by Pulse Oximetry (%) 92 L 11/25/17 21:00 Constitutional: Yes: Calm Eyes: Yes: WNL HENT: Yes: WNL Neck: Yes: WNL Cardiovascular: Yes: S1 (varies in intensity), S2 Respiratory: Yes: Diminished Gastrointestinal: Yes: Soft, Other (ileostomy site without erythema) Genitourinary: Yes: Oliguria Musculoskeletal: Yes: Muscle Weakness Edema: No Peripheral Pulses WNL: No Peripheral Pulses: Left Doralis Pedis: 1+, Right Dorsalis Pedis: 1+ Neurological: Yes: Confusion, Weakness Psychiatric: Yes: Other (dementia) Labs: CBC, BMP 11/26/17 05:30 11/26/17 05:30 INR, PTT INR 2.50 (0.83-1.09) H 11/26/17 05:30 Abnormal Lab Results 11/26/17 11/26/17 11/27/17 05:30 05:30 05:30 Neutrophils % (Manual) 94.0 H Lymphocytes % (Manual) 2.0 L D PT with INR 34.30 H INR 2.88 H Chloride 111 H BUN 48 H Random Glucose 149 H Calcium 10.7 H ALT 72 H Alkaline Phosphatase 378 H Total Protein 5.8 L Albumin 1.9 L Free T4 1.22 H - ....Imaging Other: Image Reviewed (telemetry: AF/flutter; periors of RVR) Problem List - Problems (1) Sepsis Assessment/Plan: Now off antibiotics. Code(s): A41.9 - SEPSIS, UNSPECIFIED ORGANISM Qualifiers: Sepsis type: sepsis due to unspecified organism Qualified Code(s): A41.9 - Sepsis, unspecified organism (2) Anemia Assessment/Plan: f/u Hb (12.1-->10.4 over the past 24 hours); post percutaneous nephrostomy 11/16. +hematuria. Off anticoagulants (suprtherapeutic INR despite this; ; liver metastases liekly major contirbuter). Hb stable. ASA and clopidogrel held earlier due to hematuria; now again on both agents. ( Hx CAD-->PCI; if stents were placed> 1 year ago, would stop clopidogrel).. Code(s): D64.9 - ANEMIA, UNSPECIFIED (3) Atrial fibrillation with rapid ventricular response Assessment/Plan: On metoprolol; dose increased again, now 100 mg bid for AF/flutter with recent rapid ventricular rate.Periods of hypotension make regular dosing problematic. Severely reduced LVEF: avoid diltiazem or verapamil. If necessary to control rapid ventricular response, would use digoxin or amiodarone. 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 f/u with oncologist, . Would recommend conseervative management for cardiac issues, in veiw of multi- organ and bone metastases with liver dysfunction; pt also appears to be disoriented and demented. Consider palliatvie Rx. Code(s): C67.9 - MALIGNANT NEOPLASM OF BLADDER, UNSPECIFIED; C78.00 - SECONDARY MALIGNANT NEOPLASM OF UNSPECIFIED LUNG (5) Cardiomyopathy Assessment/Plan: severely reduced LVEF. On metoprolol. Started losartan 25 mg daily (lheld presently due to periods of hypotension). F/u BUN/Cr, electrolytes, daily wt, Is and Os. Code(s): I42.9 - CARDIOMYOPATHY, UNSPECIFIED Qualifiers: Cardiomyopathy type: ischemic Qualified Code(s): I25.5 - Ischemic cardiomyopathy (6) Chronic systolic (congestive) heart failure Code(s): I50.22 - CHRONIC SYSTOLIC (CONGESTIVE) HEART FAILURE (7) Hyperlipidemia Code(s): E78.5 - HYPERLIPIDEMIA, UNSPECIFIED Qualifiers: Hyperlipidemia type: pure hypercholesterolemia Qualified Code(s): E78.00 - Pure hypercholesterolemia, unspecified; E78.0 - Pure hypercholesterolemia (8) Hypertension Code(s): I10 - ESSENTIAL (PRIMARY) HYPERTENSION Qualifiers: Hypertension type: essential hypertension Qualified Code(s): I10 - Essential (primary) hypertension (9) S/P coronary artery stent placement Code(s): Z95.5 - PRESENCE OF CORONARY ANGIOPLASTY IMPLANT AND GRAFT (10) Supratherapeutic INR Code(s): R79.1 - ABNORMAL COAGULATION PROFILE (11) Hypokalemia Code(s): E87.6 - HYPOKALEMIA (12) Hypoalbuminemia Code(s): E88.09 - OTH DISORDERS OF PLASMA-PROTEIN METABOLISM, NEC
[2017-11-26] MEDS ORDERED: PT OWN MED DRAWER 7, Y5N ONE (10:21)
[2017-11-26] MEDS: HYDROCORTISONE 20 MG, HYDROCORTISONE 5 MG PO SCH ×2 (10:25→21:44)
[2017-11-26] MEDS: FLUDROCORTISONE ACETATE 0.1 MG TABLET (FP) PO SCH (10:25)
[2017-11-26] MEDS: METHIMAZOLE 10 MG TABLET (FP) PO SCH ×2 (10:30→21:45)
[2017-11-26] MEDS: PANTOPRAZOLE 40 MG TABLET (FP) PO SCH (10:30)
[2017-11-26 10:48] LABS: ANISOCYTOSIS 1+; MACROCYTOSIS 0; PLATELET ESTIMATE NORMAL
--- NOTE | 2017-11-26 11:38 | PN ---
Progress Note, Physician Chief Complaint: hydronephrosis anemia CAD a-fib right ureteral obstruction/metastatic TCC History of Present Illness: s/p percutaneous nephrostomy tube +hematuria Tele for a-fib/a-flutter- in 160's at this time Lopressor 100 mg po ordered by Cardiology Warfarin on hold for supra-therapeutic INR - Current Medication List Current Medications: Active Medications Acetaminophen (Tylenol -) 650 mg PO Q4H PRN PRN Reason: FEVER Last Admin: 11/25/17 10:04 Dose: 650 mg Acetaminophen (Tylenol -) 650 mg PO Q4H PRN PRN Reason: PAIN LEVEL 1 - 3 Aspirin (Asa -) 81 mg PO DAILY [facility] Last Admin: 11/26/17 10:22 Dose: Not Given Atorvastatin Calcium (Lipitor -) 40 mg PO HS [facility] Last Admin: 11/25/17 22:34 Dose: 40 mg Clopidogrel Bisulfate (Plavix -) 75 mg PO DAILY [facility] Last Admin: 11/26/17 10:22 Dose: Not Given Fludrocortisone Acetate (Florinef -) 0.1 mg PO DAILY [facility] Last Admin: 11/26/17 10:25 Dose: 0.1 mg Hydrocortisone 20 mg/ (Hydrocortisone 5 mg) 25 mg PO BID [facility] Last Admin: 11/26/17 10:25 Dose: 25 mg Sodium Chloride (Normal Saline -) 1,000 mls @ 60 mls/hr IV ASDIR [facility] Stop: 11/26/17 11:54 Last Admin: 11/25/17 19:02 Dose: 60 mls/hr Losartan Potassium (Cozaar -) 25 mg PO DAILY [facility] Last Admin: 11/26/17 10:22 Dose: Not Given Methimazole (Tapazole -) 10 mg PO BID [facility] Last Admin: 11/26/17 10:30 Dose: 10 mg Metoprolol Tartrate (Lopressor Injection -) 5 mg IVPUSH Q4H PRN PRN Reason: HYPERTENSION Last Admin: 11/25/17 18:05 Dose: 5 mg Metoprolol Tartrate (Lopressor -) 100 mg PO BID [facility] Last Admin: 11/26/17 10:22 Dose: Not Given Oxycodone HCl (Roxicodone -) 5 mg PO Q6H PRN PRN Reason: PAIN LEVEL 7 - 10 Last Admin: 11/25/17 12:51 Dose: 5 mg Pantoprazole Sodium (Protonix -) 40 mg PO DAILY [facility] Last Admin: 11/26/17 10:30 Dose: 40 mg Tramadol HCl (Ultram -) 50 mg PO Q8H PRN PRN Reason: PAIN LEVEL 4 - 6 Last Admin: 11/22/17 22:18 Dose: 50 mg - Objective Vital Signs: Vital Signs Temperature 97.8 F 11/26/17 06:31 Pulse Rate 90 11/26/17 08:49 Respiratory Rate 18 11/26/17 08:49 Blood Pressure 116/62 11/26/17 08:49 O2 Sat by Pulse Oximetry (%) 92 L 11/25/17 21:00 Constitutional: Yes: Well Nourished, No Distress, Calm Cardiovascular: Yes: Pulse Irregular Respiratory: Yes: Regular Neurological: Yes: Alert, Confusion, Pre-Existing Deficit Psychiatric: Yes: Alert, Oriented Labs: CBC, BMP 11/26/17 05:30 11/26/17 05:30 INR, PTT INR 2.50 (0.83-1.09) H 11/26/17 05:30 Problem List - Problems (1) Adrenal mass Assessment/Plan: -cont on decadron -seen by biogeographer Code(s): E27.9 - DISORDER OF ADRENAL GLAND, UNSPECIFIED (2) Hydronephrosis Assessment/Plan: -R hydronephrosis -s/p R percutaneous nephrostomy tube -nephrology and urology on board -diuretic renal scan to assess patency or right ureter, as there was no output from nephrostomy Code(s): N13.30 - UNSPECIFIED HYDRONEPHROSIS (3) Sepsis Assessment/Plan: -finished IV ABT -continue routine labs monitor CBC -pt afebrile, last lactic acid WNL Code(s): A41.9 - SEPSIS, UNSPECIFIED ORGANISM Qualifiers: Sepsis type: sepsis due to unspecified organism Qualified Code(s): A41.9 - Sepsis, unspecified organism (4) Supratherapeutic INR Assessment/Plan: -cardiology on board and consult appreciated -warfarin on hold -PT/INR Daily Code(s): R79.1 - ABNORMAL COAGULATION PROFILE (5) Tachycardia Assessment/Plan: -cardiology on board -Losartan 25mg tab PO QD -cont with tele monitoring -already on lopressor 100 mg po bid, extra dose given by cardiology this afternoon -Added Cardizem 30 mg po TID -Cardizem 10 mg IVP Q4H PRN for HR >100 BPM Code(s): R00.0 - TACHYCARDIA, UNSPECIFIED (6) UTI (urinary tract infection) Assessment/Plan: -treated with ABT -ID on board -afebrile, asymptomatic Code(s): N39.0 - URINARY TRACT INFECTION, SITE NOT SPECIFIED Qualifiers: Urinary tract infection type: acute cystitis Hematuria presence: with hematuria Qualified Code(s): N30.01 - Acute cystitis with hematuria (7) Anemia Assessment/Plan: -serial CBC x 5 to monitor H/H -stool occult negative -iron profile shows iron deficiency, B12 and Thyroid unremarkable -Venofer Infusion x 1 yesterday Code(s): D64.9 - ANEMIA, UNSPECIFIED (8) Atrial fibrillation with rapid ventricular response Code(s): I48.91 - UNSPECIFIED ATRIAL FIBRILLATION (9) 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
[2017-11-26] MEDS: oxyCODONE HCL 5 MG TABLET PO PRN ×2 (13:00→21:50)
[2017-11-26] MEDS: ACETAMINOPHEN 325 MG TABLET (FP) PO PRN (13:01)
--- NOTE | 2017-11-26 16:39 | PN ---
Progress Note, Physician History of Present Illness: Pt seen and examined at bedside. He is awake and alert. He denies shortness of breath. - Current Medication List Current Medications: Active Medications Acetaminophen (Tylenol -) 650 mg PO Q4H PRN PRN Reason: FEVER Last Admin: 11/26/17 13:01 Dose: 650 mg Acetaminophen (Tylenol -) 650 mg PO Q4H PRN PRN Reason: PAIN LEVEL 1 - 3 Aspirin (Asa -) 81 mg PO DAILY [facility] Last Admin: 11/26/17 10:22 Dose: Not Given Atorvastatin Calcium (Lipitor -) 40 mg PO HS [facility] Last Admin: 11/25/17 22:34 Dose: 40 mg Clopidogrel Bisulfate (Plavix -) 75 mg PO DAILY [facility] Last Admin: 11/26/17 10:22 Dose: Not Given Fludrocortisone Acetate (Florinef -) 0.1 mg PO DAILY [facility] Last Admin: 11/26/17 10:25 Dose: 0.1 mg Hydrocortisone 20 mg/ (Hydrocortisone 5 mg) 25 mg PO BID [facility] Last Admin: 11/26/17 10:25 Dose: 25 mg Losartan Potassium (Cozaar -) 25 mg PO DAILY [facility] Last Admin: 11/26/17 10:22 Dose: Not Given Methimazole (Tapazole -) 10 mg PO BID [facility] Last Admin: 11/26/17 10:30 Dose: 10 mg Metoprolol Tartrate (Lopressor Injection -) 5 mg IVPUSH Q4H PRN PRN Reason: HYPERTENSION Last Admin: 11/25/17 18:05 Dose: 5 mg Metoprolol Tartrate (Lopressor -) 100 mg PO BID [facility] Last Admin: 11/26/17 10:22 Dose: Not Given Oxycodone HCl (Roxicodone -) 5 mg PO Q6H PRN PRN Reason: PAIN LEVEL 7 - 10 Last Admin: 11/26/17 13:00 Dose: 5 mg Pantoprazole Sodium (Protonix -) 40 mg PO DAILY [facility] Last Admin: 11/26/17 10:30 Dose: 40 mg Tramadol HCl (Ultram -) 50 mg PO Q8H PRN PRN Reason: PAIN LEVEL 4 - 6 Last Admin: 11/22/17 22:18 Dose: 50 mg Warfarin Sodium (Coumadin -) 2.5 mg PO ONCE@1800 ONE Stop: 11/26/17 18:01 - Objective Vital Signs: Vital Signs Temperature 98.7 F 11/26/17 14:00 Pulse Rate 68 11/26/17 14:00 Respiratory Rate 18 11/26/17 14:00 Blood Pressure 94/60 11/26/17 14:00 O2 Sat by Pulse Oximetry (%) 96 11/26/17 09:00 Constitutional: Yes: Calm Eyes: Yes: Conjunctiva Clear HENT: Yes: Atraumatic Neck: Yes: Supple Cardiovascular: Yes: S1, S2 Respiratory: Yes: CTA Bilaterally Gastrointestinal: Yes: Soft Genitourinary: Yes: Salas Present, Other (nephrostomy) Musculoskeletal: Yes: WNL Edema: No Neurological: Yes: Oriented Psychiatric: Yes: Oriented Labs: CBC, BMP 11/26/17 05:30 11/26/17 05:30 INR, PTT INR 2.50 (0.83-1.09) H 11/26/17 05:30 Problem List - Problems (1) Hydronephrosis Code(s): N13.30 - UNSPECIFIED HYDRONEPHROSIS (2) Sepsis Code(s): A41.9 - SEPSIS, UNSPECIFIED ORGANISM Qualifiers: Sepsis type: sepsis due to unspecified organism Qualified Code(s): A41.9 - Sepsis, unspecified organism (3) UTI (urinary tract infection) Code(s): N39.0 - URINARY TRACT INFECTION, SITE NOT SPECIFIED Qualifiers: Urinary tract infection type: acute cystitis Hematuria presence: with hematuria Qualified Code(s): N30.01 - Acute cystitis with hematuria (4) Renal dysfunction Code(s): N28.9 - DISORDER OF KIDNEY AND URETER, UNSPECIFIED Assessment/Plan Current Medications Generic Name Dose Route Start Last Admin Trade Name Freq PRN Reason Stop Dose Admin Acetaminophen 650 mg 11/18/17 16:59 11/26/17 13:01 Tylenol - PO 650 mg Q4H PRN Administration FEVER Acetaminophen 650 mg 11/18/17 16:59 Tylenol - PO Q4H PRN PAIN LEVEL 1 - 3 Aspirin 81 mg 11/25/17 10:00 11/26/17 10:22 Asa - PO Not Given DAILY [facility] Atorvastatin Calcium 40 mg 11/18/17 22:00 11/25/17 22:34 Lipitor - PO 40 mg HS [facility] Administration Clopidogrel Bisulfate 75 mg 11/18/17 10:00 11/26/17 10:22 Plavix - PO Not Given DAILY [facility] Fludrocortisone Acetate 0.1 mg 11/26/17 10:00 11/26/17 10:25 Florinef - PO 0.1 mg DAILY [facility] Administration Hydrocortisone 20 mg/ 25 mg 11/26/17 10:00 11/26/17 10:25 Hydrocortisone 5 mg PO 25 mg BID [facility] Administration Losartan Potassium 25 mg 11/18/17 16:30 11/26/17 10:22 Cozaar - PO Not Given DAILY [facility] Methimazole 10 mg 11/25/17 23:30 11/26/17 10:30 Tapazole - PO 10 mg BID [facility] Administration Metoprolol Tartrate 5 mg 11/20/17 08:47 11/25/17 18:05 Lopressor Injection - IVPUSH 5 mg Q4H PRN Administration HYPERTENSION Metoprolol Tartrate 100 mg 11/21/17 10:00 11/26/17 10:22 Lopressor - PO Not Given BID [facility] Oxycodone HCl 5 mg 11/18/17 17:02 11/26/17 13:00 Roxicodone - PO 5 mg Q6H PRN Administration PAIN LEVEL 7 - 10 Pantoprazole Sodium 40 mg 11/24/17 10:00 11/26/17 10:30 Protonix - PO 40 mg DAILY [facility] Administration Tramadol HCl 50 mg 11/18/17 17:01 11/22/17 22:18 Ultram - PO 50 mg Q8H PRN Administration PAIN LEVEL 4 - 6 Warfarin Sodium 2.5 mg 11/26/17 18:00 Coumadin - PO 11/26/17 18:01 ONCE@1800 ONE Impression 1. CKD 2. altered mental status 3. a-fib 4. DM 5. HTN 6. hx bladder cancer 7. leukocytosis 8. sepsis 9. hyperkalemia 10. chon Plan - follow up renal scan - will give 1/2 ns and monitor labs - hematuria is improved - monitor urine output - will follow Dr Baltazar
[2017-11-26] MEDS ORDERED: SODIUM CHLORIDE 0.45% 1,000 ML IV SCH (16:45)
[2017-11-26] MEDS ORDERED: WARFARIN NA 2.5 MG TABLET (FP) PO ONE (18:00)
[2017-11-26] MEDS: ATORVASTATIN CA 40 MG TABLET (FP) PO SCH (21:44)
[2017-11-27 06:57] LABS: INR 2.88 (0.83-1.09); PROTHROMBIN TIME (PATIENT) 34.3 SEC (9.7-13.0)
[2017-11-27 07:57] LABS: ANION GAP 11 MMOL/L (8-16); BLOOD UREA NITROGEN 55 mg/dL (7-18); CALCIUM 9.7 mg/dL (8.5-10.1); CHLORIDE 108 mmol/L (98-107); CO2 21 mmol/L (21-32); CREATININE 1.2 mg/dL (0.55-1.3); GLUCOSE,RANDOM 79 mg/dL (74-106); POTASSIUM 4.7 mmol/L (3.5-5.1); SODIUM 140 mmol/L (136-145)
--- NOTE | 2017-11-27 08:06 | PN ---
Progress Note, Physician Chief Complaint: Pt moves all extremities on request; remains pleasant, but disoriented to person , place, time. History of Present Illness: The patient is a 67 year old male (b. 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 As per EMS the patients systolic was noted to be in the 60s and they placed a PIV and started a liter of NS prior to arrival in the emergency department. The patient denies chest pain, shortness of breath, headache and dizziness. Denies fever, chills, nausea, vomit, diarrhea and constipation. Denies dysuria, frequency, urgency and hematuria. - Current Medication List Current Medications: Active Medications Acetaminophen (Tylenol -) 650 mg PO Q4H PRN PRN Reason: FEVER Last Admin: 11/26/17 13:01 Dose: 650 mg Acetaminophen (Tylenol -) 650 mg PO Q4H PRN PRN Reason: PAIN LEVEL 1 - 3 Aspirin (Asa -) 81 mg PO DAILY [facility] Last Admin: 11/26/17 10:22 Dose: Not Given Atorvastatin Calcium (Lipitor -) 40 mg PO HS [facility] Last Admin: 11/26/17 21:44 Dose: 40 mg Clopidogrel Bisulfate (Plavix -) 75 mg PO DAILY [facility] Last Admin: 11/26/17 10:22 Dose: Not Given Digoxin (Lanoxin Injection -) 0.5 mg IVPUSH ONCE ONE Stop: 11/27/17 07:48 Fludrocortisone Acetate (Florinef -) 0.1 mg PO DAILY [facility] Last Admin: 11/26/17 10:25 Dose: 0.1 mg Hydrocortisone 20 mg/ (Hydrocortisone 5 mg) 25 mg PO BID [facility] Last Admin: 11/26/17 21:44 Dose: 25 mg Losartan Potassium (Cozaar -) 25 mg PO DAILY [facility] Last Admin: 11/26/17 10:22 Dose: Not Given Methimazole (Tapazole -) 10 mg PO BID [facility] Last Admin: 11/26/17 21:45 Dose: 10 mg Metoprolol Tartrate (Lopressor Injection -) 5 mg IVPUSH Q4H PRN PRN Reason: HYPERTENSION Last Admin: 11/25/17 18:05 Dose: 5 mg Metoprolol Tartrate (Lopressor -) 100 mg PO BID [facility] Last Admin: 11/26/17 21:45 Dose: 100 mg Oxycodone HCl (Roxicodone -) 5 mg PO Q6H PRN PRN Reason: PAIN LEVEL 7 - 10 Last Admin: 11/26/17 21:50 Dose: 5 mg Pantoprazole Sodium (Protonix -) 40 mg PO DAILY [facility] Last Admin: 11/26/17 10:30 Dose: 40 mg Tramadol HCl (Ultram -) 50 mg PO Q8H PRN PRN Reason: PAIN LEVEL 4 - 6 Last Admin: 11/22/17 22:18 Dose: 50 mg - Objective Vital Signs: Vital Signs Temperature 97.9 F 11/27/17 06:00 Pulse Rate 82 11/27/17 06:00 Respiratory Rate 18 11/27/17 06:00 Blood Pressure 94/48 L 11/27/17 06:00 O2 Sat by Pulse Oximetry (%) 98 11/26/17 21:00 Constitutional: Yes: Calm Eyes: Yes: WNL HENT: Yes: WNL Neck: Yes: Decreased ROM Cardiovascular: Yes: Tachycardia, S1 (varies in intensity), S2 Respiratory: Yes: Regular Gastrointestinal: Yes: Soft, Other (iliostomy bag) Genitourinary: Yes: Oliguria, Other (nephrostomy tube) Musculoskeletal: Yes: Muscle Weakness Extremities: Yes: Cool Edema: No Peripheral Pulses WNL: No Peripheral Pulses: Left Doralis Pedis: 1+, Right Dorsalis Pedis: 1+ Neurological: Yes: Confusion, Weakness Psychiatric: Yes: Other Labs: CBC, BMP 11/26/17 05:30 11/27/17 05:30 INR, PTT INR 2.88 (0.83-1.09) H 11/27/17 05:30 Abnormal Lab Results 11/27/17 11/27/17 05:30 05:30 PT with INR 34.30 H INR 2.88 H Chloride 108 H BUN 55 H - ....Imaging Chest X-ray: Pending Other: Image Reviewed (telemetry: AF with RVR) Problem List - Problems (1) Sepsis Assessment/Plan: Remains leukocytotic; periods of hypotension. F/u CXR. F/u with ID. Code(s): A41.9 - SEPSIS, UNSPECIFIED ORGANISM Qualifiers: Sepsis type: sepsis due to unspecified organism Qualified Code(s): A41.9 - Sepsis, unspecified organism (2) Anemia Assessment/Plan: f/u Hb (stable x 48 hrs); post percutaneous nephrostomy 11/16/17. +hematuria. Off anticoagulants (suprtherapeutic INR despite this; ; liver metastases liekly major contirbuter). Hb stable. ASA and clopidogrel held earlier due to hematuria; now again on both agents. ( Hx CAD-->PCI; if stents were placed> 1 year ago, would stop clopidogrel). Code(s): D64.9 - ANEMIA, UNSPECIFIED (3) Atrial fibrillation with rapid ventricular response Assessment/Plan: Telemetry: AF with RVR. Hypotension makes regular dosing of metoprolol problematic. Start digoxin (bolus IV doses x 24 hours). F/U CXR. Rising BUn/Cr; no JVD; give fluids. If unable to control HR with above, will start amiodarone. 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 f/u with oncologist, . Would recommend conservative management for cardiac issues, in veiw of multi- organ and bone metastases with liver dysfunction; pt also appears to be disoriented and demented. Consider palliative Rx. Code(s): C67.9 - MALIGNANT NEOPLASM OF BLADDER, UNSPECIFIED; C78.00 - SECONDARY MALIGNANT NEOPLASM OF UNSPECIFIED LUNG (5) Cardiomyopathy Assessment/Plan: severely reduced LVEF. + JVD. On metoprolol and losartan (lheld presently due to periods of hypotension). F/u BUN/Cr, electrolytes, daily wt, Is and Os. F/u chest Xray; may need to reduce IV fluids. Code(s): I42.9 - CARDIOMYOPATHY, UNSPECIFIED Qualifiers: Cardiomyopathy type: ischemic Qualified Code(s): I25.5 - Ischemic cardiomyopathy (6) Chronic systolic (congestive) heart failure Assessment/Plan: Problematic giving medication regimen due to hypotension. Digoxin started for HR control. On fluids (renal dysfunction; rising BUN). F/u CXR. Code(s): I50.22 - CHRONIC SYSTOLIC (CONGESTIVE) HEART FAILURE (7) Hyperlipidemia Code(s): E78.5 - HYPERLIPIDEMIA, UNSPECIFIED Qualifiers: Hyperlipidemia type: pure hypercholesterolemia Qualified Code(s): E78.00 - Pure hypercholesterolemia, unspecified; E78.0 - Pure hypercholesterolemia (8) Hypertension Code(s): I10 - ESSENTIAL (PRIMARY) HYPERTENSION Qualifiers: Hypertension type: essential hypertension Qualified Code(s): I10 - Essential (primary) hypertension (9) S/P coronary artery stent placement Code(s): Z95.5 - PRESENCE OF CORONARY ANGIOPLASTY IMPLANT AND GRAFT (10) Supratherapeutic INR Assessment/Plan: INR decreasing to 2.8; off warfarin. Metatstatic CA noted in liver a likely strong contributor to derangement in coagulation. Code(s): R79.1 - ABNORMAL COAGULATION PROFILE (11) Hypoalbuminemia Code(s): E88.09 - OTH DISORDERS OF PLASMA-PROTEIN METABOLISM, NEC
[2017-11-27] MEDS ORDERED: DIGOXIN 0.5 MG/2 ML AMPUL IVPUSH ONE (08:45)
[2017-11-27] MEDS: LOSARTAN POTASSIUM 25 MG TABLET PO SCH (09:59)
[2017-11-27] MEDS: HYDROCORTISONE 20 MG, HYDROCORTISONE 5 MG PO SCH (10:19)
[2017-11-27] MEDS: FLUDROCORTISONE ACETATE 0.1 MG TABLET (FP) PO SCH (10:20)
[2017-11-27] MEDS: CLOPIDOGREL BISULFATE 75 MG TABLET (FP) PO SCH (10:22)
[2017-11-27] MEDS: METHIMAZOLE 10 MG TABLET (FP) PO SCH ×2 (10:22→22:26)
[2017-11-27] MEDS: ASPIRIN 81 MG CHEWABLE TABLETS PO SCH (10:22)
[2017-11-27] MEDS: PANTOPRAZOLE 40 MG TABLET (FP) PO SCH (10:22)
[2017-11-27] MEDS: METOPROLOL TARTRATE 50 MG TABLET (FP) PO SCH (11:25)
[2017-11-27] MEDS ORDERED: METOPROLOL TARTRATE 50 MG TABLET (FP) PO ONE (11:45)
--- NOTE | 2017-11-27 11:46 | PN ---
Progress Note, Physician Chief Complaint: hydronephrosis anemia CAD a-fib right ureteral obstruction/metastatic TCC History of Present Illness: s/p percutaneous nephrostomy tube +hematuria Tele for a-fib/a-flutter- in 130's at this time [id number] mg PO once ordered by cardiology INR 2.88 noted - Current Medication List Current Medications: Active Medications Acetaminophen (Tylenol -) 650 mg PO Q4H PRN PRN Reason: FEVER Last Admin: 11/26/17 13:01 Dose: 650 mg Acetaminophen (Tylenol -) 650 mg PO Q4H PRN PRN Reason: PAIN LEVEL 1 - 3 Aspirin (Asa -) 81 mg PO DAILY [facility] Last Admin: 11/27/17 10:22 Dose: 81 mg Atorvastatin Calcium (Lipitor -) 40 mg PO HS [facility] Last Admin: 11/26/17 21:44 Dose: 40 mg Clopidogrel Bisulfate (Plavix -) 75 mg PO DAILY [facility] Last Admin: 11/27/17 10:22 Dose: 75 mg Digoxin (Lanoxin Injection -) 0.25 mg IVPUSH 0245,0845,1445,2045 [facility] Stop: 11/28/17 08:46 Fludrocortisone Acetate (Florinef -) 0.1 mg PO DAILY [facility] Last Admin: 11/27/17 10:20 Dose: 0.1 mg Hydrocortisone 20 mg/ (Hydrocortisone 5 mg) 25 mg PO BID [facility] Last Admin: 11/27/17 10:19 Dose: 25 mg Losartan Potassium (Cozaar -) 25 mg PO DAILY [facility] Last Admin: 11/27/17 09:59 Dose: Not Given Methimazole (Tapazole -) 10 mg PO BID [facility] Last Admin: 11/27/17 10:22 Dose: 10 mg Metoprolol Tartrate (Lopressor Injection -) 5 mg IVPUSH Q4H PRN PRN Reason: HYPERTENSION Last Admin: 11/25/17 18:05 Dose: 5 mg Metoprolol Tartrate (Lopressor -) 100 mg PO BID [facility] Last Admin: 11/27/17 11:25 Dose: Not Given Metoprolol Tartrate (Lopressor -) 50 mg PO ONCE ONE Stop: 11/27/17 11:46 Oxycodone HCl (Roxicodone -) 5 mg PO Q6H PRN PRN Reason: PAIN LEVEL 7 - 10 Last Admin: 11/26/17 21:50 Dose: 5 mg Pantoprazole Sodium (Protonix -) 40 mg PO DAILY [facility] Last Admin: 11/27/17 10:22 Dose: 40 mg Tramadol HCl (Ultram -) 50 mg PO Q8H PRN PRN Reason: PAIN LEVEL 4 - 6 Last Admin: 11/22/17 22:18 Dose: 50 mg - Objective Vital Signs: Vital Signs Temperature 97 F L 11/27/17 09:00 Pulse Rate 130 H 11/27/17 09:06 Respiratory Rate 18 11/27/17 09:00 Blood Pressure 78/50 L 11/27/17 09:00 O2 Sat by Pulse Oximetry (%) 98 11/26/17 21:00 Constitutional: Yes: Well Nourished, No Distress, Calm Cardiovascular: Yes: Tachycardia, Pulse Irregular Respiratory: Yes: Regular Labs: CBC, BMP 11/26/17 05:30 11/27/17 05:30 INR, PTT INR 2.88 (0.83-1.09) H 11/27/17 05:30 Problem List - Problems (1) Adrenal mass Code(s): E27.9 - DISORDER OF ADRENAL GLAND, UNSPECIFIED (2) Hydronephrosis Code(s): N13.30 - UNSPECIFIED HYDRONEPHROSIS (3) Sepsis Code(s): A41.9 - SEPSIS, UNSPECIFIED ORGANISM Qualifiers: Sepsis type: sepsis due to unspecified organism Qualified Code(s): A41.9 - Sepsis, unspecified organism (4) Supratherapeutic INR Code(s): R79.1 - ABNORMAL COAGULATION PROFILE (5) Tachycardia Code(s): R00.0 - TACHYCARDIA, UNSPECIFIED (6) UTI (urinary tract infection) Code(s): N39.0 - URINARY TRACT INFECTION, SITE NOT SPECIFIED Qualifiers: Urinary tract infection type: acute cystitis Hematuria presence: with hematuria Qualified Code(s): N30.01 - Acute cystitis with hematuria (7) Anemia Code(s): D64.9 - ANEMIA, UNSPECIFIED (8) Atrial fibrillation with rapid ventricular response Code(s): I48.91 - UNSPECIFIED ATRIAL FIBRILLATION (9) 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
[2017-11-27] MEDS ORDERED: AMIODARONE HCL 150 MG/3 ML VIAL IVPUSH ONE ×3 (14:28→14:40)
--- NOTE | 2017-11-27 14:43 | PN ---
Physical Exam: SUBJECTIVE: Patient seen and examined OBJECTIVE: Vital Signs Period Temp Pulse Resp BP Sys/Maynard Pulse Ox Last 24 Hr 97 F-98.0 F 72-140 18-18 78-98/42-55 98 GENERAL: The patient is awake, alert, and fully oriented, in no acute distress. HEAD: Normal with no signs of trauma. EYES: PERRL, extraocular movements intact, sclera anicteric, conjunctiva clear. No ptosis. ENT: Ears normal, nares patent, oropharynx clear without exudates, moist mucous membranes. NECK: Trachea midline, full range of motion, supple. LUNGS: Breath sounds equal, clear to auscultation bilaterally, no wheezes, no crackles, no accessory muscle use. HEART: Regular rate and rhythm, S1, S2 without murmur, rub or gallop. ABDOMEN: Soft, nontender, nondistended, normoactive bowel sounds, no guarding, no rebound, no hepatosplenomegaly, no masses. EXTREMITIES: 2+ pulses, warm, well-perfused, no edema. NEUROLOGICAL: Cranial nerves II through XII grossly intact. Normal speech, gait not observed. PSYCH: Normal mood, normal affect. SKIN: Warm, dry, normal turgor, no rashes or lesions noted Laboratory Results - last 24 hr 11/26/17 11/27/17 11/27/17 05:30 05:30 05:30 PT with INR 34.30 H INR 2.88 H Sodium 140 Potassium 4.7 Chloride 108 H Carbon Dioxide 21 Anion Gap 11 BUN 55 H Creatinine 1.2 Creat Clearance w eGFR > 60 Random Glucose 79 Calcium 9.7 Cortisol AM Sample 4.2 Active Medications Generic Name Dose Route Start Last Admin Trade Name Freq PRN Reason Stop Dose Admin Acetaminophen 650 mg 11/18/17 16:59 11/26/17 13:01 Tylenol - PO 650 mg Q4H PRN Administration FEVER Acetaminophen 650 mg 11/18/17 16:59 Tylenol - PO Q4H PRN PAIN LEVEL 1 - 3 Amiodarone HCl 150 mg 11/27/17 14:28 Cordarone Injection - IVPUSH 11/27/17 14:29 ONCE ONE Amiodarone HCl 150 mg 11/27/17 14:40 Cordarone Injection - IVPUSH 11/27/17 14:41 ONCE ONE Aspirin 81 mg 11/25/17 10:00 11/27/17 10:22 Asa - PO 81 mg DAILY [facility] Administration Atorvastatin Calcium 40 mg 11/18/17 22:00 11/26/17 21:44 Lipitor - PO 40 mg HS [facility] Administration Clopidogrel Bisulfate 75 mg 11/18/17 10:00 11/27/17 10:22 Plavix - PO 75 mg DAILY [facility] Administration Digoxin 0.25 mg 11/27/17 14:45 Lanoxin Injection - IVPUSH 11/28/17 08:46 [id number],1445,2045 [facility] Fludrocortisone Acetate 0.1 mg 11/26/17 10:00 11/27/17 10:20 Florinef - PO 0.1 mg DAILY [facility] Administration Hydrocortisone 20 mg/ 25 mg 11/26/17 10:00 11/27/17 10:19 Hydrocortisone 5 mg PO 25 mg BID [facility] Administration Losartan Potassium 25 mg 11/18/17 16:30 11/27/17 09:59 Cozaar - PO Not Given DAILY [facility] Methimazole 10 mg 11/25/17 23:30 11/27/17 10:22 Tapazole - PO 10 mg BID [facility] Administration Metoprolol Tartrate 5 mg 11/20/17 08:47 11/25/17 18:05 Lopressor Injection - IVPUSH 5 mg Q4H PRN Administration HYPERTENSION Metoprolol Tartrate 100 mg 11/21/17 10:00 11/27/17 11:25 Lopressor - PO Not Given BID [facility] Oxycodone HCl 5 mg 11/18/17 17:02 11/26/17 21:50 Roxicodone - PO 5 mg Q6H PRN Administration PAIN LEVEL 7 - 10 Pantoprazole Sodium 40 mg 11/24/17 10:00 11/27/17 10:22 Protonix - PO 40 mg DAILY [facility] Administration Tramadol HCl 50 mg 11/18/17 17:01 11/22/17 22:18 Ultram - PO 50 mg Q8H PRN Administration PAIN LEVEL 4 - 6 Warfarin Sodium 1 mg 11/27/17 18:00 Coumadin - PO DAILY@1800 [facility] ASSESSMENT/PLAN:
--- NOTE | 2017-11-27 14:44 | RAPID ---
Physical Examination Vital Signs: Vital Signs Temperature 97 F L 11/27/17 09:00 Pulse Rate 128 H 11/27/17 11:00 Respiratory Rate 18 11/27/17 11:00 Blood Pressure 80/50 L 11/27/17 11:00 O2 Sat by Pulse Oximetry (%) 98 11/26/17 21:00 Labs: CBC, BMP 11/26/17 05:30 11/27/17 05:30 Rapid Response - Rapid Response Assessment: Rapid response called at 2:19pm. Response team arrived. Patient was reported to be hypotensive and tachycardic. General:awake, alert, on nonrebreather mask VS:BP 65/31 MD 126 Lungs: clear to auscultation bilaterally Heart: Irregularly irregular, tachycardic Abd: soft, nondistended Ext: 2+ pulses, good capillary refill, no edema A/P AF with RVR, hemodynamically unstable. Amiodarone 150mg IV push x2 given Patient remained tachycardic at 120s and hypotensive at 60s/40s. Synchronized cardioversion at 120 joules once. Rate controlled at 90s but patient remained hypotensive at 70/40. Started on Amiodarone drip. Daughter was called multiple times to get consent for central line, with no response. Decision to put emergent central line done. Central line placed to start pressors. Transfer to ICU for closer monitoring.
[2017-11-27] MEDS: AMIODARONE IN DEXTROSE,ISO-OSM 360 MG/200 ML BAG IVPB SCH (15:13)
--- NOTE | 2017-11-27 15:14 | CONSULT ---
Consultation: REQUESTING PROVIDER: Mery Baeza MD CONSULT REQUEST: We have been asked to medically evaluate this patient for Afib/ RVR and hypotension non-responsive to bolus. HISTORY OF PRESENT ILLNESS: 67 y/o M w/ PMHx bladder Ca with mets to lung, liver, and bone, s/p ileal conduit, A-fib, CHF, CAD, HTN, GERD, and depression, recently treated in ICU for septic shock 2/2 UTI and adrenal insufficiency, stabilized and transferred to floors. Has been on floors since for ongoing acute management of cardiac issues. Rapid response called as per RR note when Pt was found unresponsive and hypotensive 2/2 afib w/ RVR. Did not respond to pushes of Lopressor. S/p synchronized cardioversion and amiodarone gtt which did not convert to sinus but did establish rate control. Central line placed on floor for hemodynamic support. Transferred to ICU for titration of pressors and ongoing monitoring. REVIEW OF SYSTEMS: As per HPI PHYSICAL EXAMINATION Vital Signs - 24 hr 11/26/17 11/26/17 11/26/17 17:30 20:51 21:00 Temperature 98.0 F 97.4 F L Pulse Rate 72 78 Respiratory 18 18 18 Rate Blood Pressure 87/55 L 98/53 L O2 Sat by Pulse 98 Oximetry (%) 11/27/17 11/27/17 11/27/17 02:02 06:00 09:00 Temperature 97.8 F 97.9 F 97 F L Pulse Rate 97 H 82 140 H Respiratory 18 18 18 Rate Blood Pressure 88/42 L 94/48 L 78/50 L O2 Sat by Pulse Oximetry (%) 11/27/17 11/27/17 09:06 11:00 Temperature Pulse Rate 130 H 128 H Respiratory 18 Rate Blood Pressure 80/50 L O2 Sat by Pulse Oximetry (%) GENERAL: Awake, minimally verbally responsive, non-rebreather on. Pt is fluent in [place], does not speak [place] HEAD: NC/AT EYES: PERRLA, EOMI EARS, NOSE, THROAT: Dry mucous membranes NECK: Supple without lymphadenopathy, +JVD. LUNGS: Exam limited by patient access and compliance. No adventitious sounds in anterior lind HEART: Borderline tachy, irregularly irregular ABDOMEN: exam limited. soft, NT, ND UPPER EXTREMITIES: 1+ pulses, warm, well-perfused. No cyanosis. No clubbing. Cap refill <2 seconds. No peripheral edema. LOWER EXTREMITIES: 1+ pulses, warm, well-perfused. No calf tenderness. No peripheral edema. NEUROLOGICAL: Moving four extremities spontaneously PSYCHIATRIC: Could not be assessed Laboratory Results - last 24 hr 11/26/17 11/27/17 11/27/17 05:30 05:30 05:30 PT with INR 34.30 H INR 2.88 H Sodium 140 Potassium 4.7 Chloride 108 H Carbon Dioxide 21 Anion Gap 11 BUN 55 H Creatinine 1.2 Creat Clearance w eGFR > 60 Random Glucose 79 Calcium 9.7 Cortisol AM Sample 4.2 Active Medications Generic Name Dose Route Start Last Admin Trade Name Freq PRN Reason Stop Dose Admin Acetaminophen 650 mg 11/18/17 16:59 11/26/17 13:01 Tylenol - PO 650 mg Q4H PRN Administration FEVER Acetaminophen 650 mg 11/18/17 16:59 Tylenol - PO Q4H PRN PAIN LEVEL 1 - 3 Aspirin 81 mg 11/25/17 10:00 11/27/17 10:22 Asa - PO 81 mg DAILY [facility] Administration Atorvastatin Calcium 40 mg 11/18/17 22:00 11/26/17 21:44 Lipitor - PO 40 mg HS [facility] Administration Clopidogrel Bisulfate 75 mg 11/18/17 10:00 11/27/17 10:22 Plavix - PO 75 mg DAILY [facility] Administration Digoxin 0.25 mg 11/27/17 14:45 Lanoxin Injection - IVPUSH 11/28/17 08:46 0245,0845,1445,2045 [facility] Fludrocortisone Acetate 0.1 mg 11/26/17 10:00 11/27/17 10:20 Florinef - PO 0.1 mg DAILY [facility] Administration Hydrocortisone 20 mg/ 25 mg 11/26/17 10:00 11/27/17 10:19 Hydrocortisone 5 mg PO 25 mg BID [facility] Administration Amiodarone HCl/Dextrose 360 mg in 200 mls @ 16.667 mls/hr 11/27/17 15:15 Nexterone 360 Mg/200 Ml Bag IVPB TITR [facility] Protocol 0.5 MG/MIN Losartan Potassium 25 mg 11/18/17 16:30 11/27/17 09:59 Cozaar - PO Not Given DAILY [facility] Methimazole 10 mg 11/25/17 23:30 11/27/17 10:22 Tapazole - PO 10 mg BID [facility] Administration Metoprolol Tartrate 5 mg 11/20/17 08:47 11/25/17 18:05 Lopressor Injection - IVPUSH 5 mg Q4H PRN Administration HYPERTENSION Metoprolol Tartrate 100 mg 11/21/17 10:00 11/27/17 11:25 Lopressor - PO Not Given BID [facility] Oxycodone HCl 5 mg 11/18/17 17:02 11/26/17 21:50 Roxicodone - PO 5 mg Q6H PRN Administration PAIN LEVEL 7 - 10 Pantoprazole Sodium 40 mg 11/24/17 10:00 11/27/17 10:22 Protonix - PO 40 mg DAILY [facility] Administration Tramadol HCl 50 mg 11/18/17 17:01 11/22/17 22:18 Ultram - PO 50 mg Q8H PRN Administration PAIN LEVEL 4 - 6 Warfarin Sodium 1 mg 11/27/17 18:00 Coumadin - PO DAILY@1800 [facility]: 67 y/o M w/ PMHx bladder Ca with mets to lung, liver, and bone, s/p ileal conduit, A-fib, CHF, CAD, HTN, GERD, and depression. Initially BIBEMS from [facility] and admitted to ICU w/ septic shock. Stabilized and transferred to floors. No re-admitted to ICU with episode of rapid afib and hypotension non- reponsive to bolus, s/p cardioversion and amiodarone gtt initiation. #Cardiovascular -Hypotension 2/2 afib w/ RVR s/p cardioversion and amiodarone gtt, did not convert to sinus but now rate-controlled -central line placed on floor -titrate pressors for MAP > 65 -CVP monitoring for intravascular status -Pt has severe CHF, use intravascular status to guide bolus vs diuresis, no standing fluids -cont hydrocortisone/fludrocortisone -cont warfarin -cont digoxin x 4 doses -cont lipitor -amiodarone drip -hold antihypertensives -cont ASA/Plavix #Endocrinology -Adrenal Insufficiency, cont hydrocortisone/fludrocortisone -cont methimazole #Pulmonary -no active issues -supplemental oxygen to maintain saturation, currently on non-rebreather -Pulmonary Metastases -stable CXR (11/05/17) confirmed pulmonary nodules, no acute pathology CT Scan (11/05/17): shows multiple mets to liver, lungs, worsening hydronephrosis , suspicious for distal ureteral strictures at conduit, worsening L2-L4 bone metastases, new right adrenal metastases stable #Urology/Renal -s/p cystectomy and ileal conduit for Metastatic Bladder Ca -Urology following (Dr. Ruddy Mcguire) -Nephrology following #F/E/N -no standing IVF -Strict Is & Os -monitor electrolytes and replete as necessary -diabetic diet as tolerated #PPx. -DVT: Warfarin -GI: PTX #Dispo -We will continue to follow the patient in the ICU. Thank you for this consultative opportunity. Visit type - Emergency Visit Emergency Visit: No - New Patient This patient is new to me today: No - Critical Care Critical Care patient: Yes Total Critical Care Time (in minutes): 40 Critical Care Statement: The care of this patient involved high complexity decision making to prevent further life threatening deterioration of the patient 's condition and/or to evaluate & treat vital organ system(s) failure or risk of failure.
[2017-11-27] MEDS ORDERED: AMIODARONE IN DEXTROSE,ISO-OSM 360 MG/200 ML BAG IVPB SCH (15:15)
[2017-11-27] MEDS ORDERED: SODIUM CHLORIDE 1,000 ML IV ONE (15:30)
--- NOTE | 2017-11-27 15:39 | PN ---
Progress Note, Physician History of Present Illness: Pt seen and examined. He was fount to be hypotensive and tachycardic. He is awake. He was found in rapid a-fib. - Current Medication List Current Medications: Active Medications Acetaminophen (Tylenol -) 650 mg PO Q4H PRN PRN Reason: FEVER Last Admin: 11/26/17 13:01 Dose: 650 mg Acetaminophen (Tylenol -) 650 mg PO Q4H PRN PRN Reason: PAIN LEVEL 1 - 3 Aspirin (Asa -) 81 mg PO DAILY [facility] Last Admin: 11/27/17 10:22 Dose: 81 mg Atorvastatin Calcium (Lipitor -) 40 mg PO HS [facility] Last Admin: 11/26/17 21:44 Dose: 40 mg Chlorhexidine Gluconate (Hibiclens For Decolonization -) 1 applic TP HS [facility] Clopidogrel Bisulfate (Plavix -) 75 mg PO DAILY [facility] Last Admin: 11/27/17 10:22 Dose: 75 mg Digoxin (Lanoxin Injection -) 0.25 mg IVPUSH 0245,0845,1445,2045 [facility] Stop: 11/28/17 08:46 Fludrocortisone Acetate (Florinef -) 0.1 mg PO DAILY [facility] Last Admin: 11/27/17 10:20 Dose: 0.1 mg Hydrocortisone 20 mg/ (Hydrocortisone 5 mg) 25 mg PO BID [facility] Last Admin: 11/27/17 10:19 Dose: 25 mg Amiodarone HCl/Dextrose (Nexterone 360 Mg/200 Ml Bag) 360 mg in 200 mls @ 16.667 mls/hr IVPB TITR [facility]; Protocol Last Admin: 11/27/17 15:13 Dose: 0.5 mg/min, 16.667 mls/hr Sodium Chloride (Normal Saline -) 1,000 mls @ 1,000 mls/hr IV ONCE ONE Stop: 11/27/17 16:29 Losartan Potassium (Cozaar -) 25 mg PO DAILY [facility] Last Admin: 11/27/17 09:59 Dose: Not Given Methimazole (Tapazole -) 10 mg PO BID [facility] Last Admin: 11/27/17 10:22 Dose: 10 mg Metoprolol Tartrate (Lopressor Injection -) 5 mg IVPUSH Q4H PRN PRN Reason: HYPERTENSION Last Admin: 11/25/17 18:05 Dose: 5 mg Metoprolol Tartrate (Lopressor -) 100 mg PO BID [facility] Last Admin: 11/27/17 11:25 Dose: Not Given Mupirocin (Bactroban Ointment (For Decolonization) -) 1 applic NS BID [facility] Stop: 12/02/17 21:59 Oxycodone HCl (Roxicodone -) 5 mg PO Q6H PRN PRN Reason: PAIN LEVEL 7 - 10 Last Admin: 11/26/17 21:50 Dose: 5 mg Pantoprazole Sodium (Protonix -) 40 mg PO DAILY [facility] Last Admin: 11/27/17 10:22 Dose: 40 mg Tramadol HCl (Ultram -) 50 mg PO Q8H PRN PRN Reason: PAIN LEVEL 4 - 6 Last Admin: 11/22/17 22:18 Dose: 50 mg Warfarin Sodium (Coumadin -) 1 mg PO DAILY@1800 [facility] - Objective Vital Signs: Vital Signs Temperature 97 F L 11/27/17 09:00 Pulse Rate 128 H 11/27/17 11:00 Respiratory Rate 18 11/27/17 11:00 Blood Pressure 80/50 L 11/27/17 11:00 O2 Sat by Pulse Oximetry (%) 98 11/26/17 21:00 Constitutional: Yes: Calm Eyes: Yes: Conjunctiva Clear HENT: Yes: Atraumatic Cardiovascular: Yes: S1, S2 Respiratory: Yes: CTA Bilaterally Gastrointestinal: Yes: Soft Genitourinary: Yes: Other (ileal conduit, nephrostomy) Musculoskeletal: Yes: Muscle Weakness Edema: No Neurological: Yes: Other (awake) Labs: CBC, BMP 11/26/17 05:30 11/27/17 05:30 INR, PTT INR 2.88 (0.83-1.09) H 11/27/17 05:30 Problem List - Problems (1) Hydronephrosis Code(s): N13.30 - UNSPECIFIED HYDRONEPHROSIS (2) Sepsis Code(s): A41.9 - SEPSIS, UNSPECIFIED ORGANISM Qualifiers: Qualified Code(s): A41.9 - Sepsis, unspecified organism (3) UTI (urinary tract infection) Code(s): N39.0 - URINARY TRACT INFECTION, SITE NOT SPECIFIED Qualifiers: Qualified Code(s): N30.01 - Acute cystitis with hematuria (4) Renal dysfunction Code(s): N28.9 - DISORDER OF KIDNEY AND URETER, UNSPECIFIED Assessment/Plan Current Medications Generic Name Dose Route Start Last Admin Trade Name Freq PRN Reason Stop Dose Admin Acetaminophen 650 mg 11/18/17 16:59 11/26/17 13:01 Tylenol - PO 650 mg Q4H PRN Administration FEVER Acetaminophen 650 mg 11/18/17 16:59 Tylenol - PO Q4H PRN PAIN LEVEL 1 - 3 Aspirin 81 mg 11/25/17 10:00 11/27/17 10:22 Asa - PO 81 mg DAILY [facility] Administration Atorvastatin Calcium 40 mg 11/18/17 22:00 11/26/17 21:44 Lipitor - PO 40 mg HS [facility] Administration Chlorhexidine Gluconate 1 applic 11/27/17 22:00 Hibiclens For Decolonization - TP HS [facility] Clopidogrel Bisulfate 75 mg 11/18/17 10:00 11/27/17 10:22 Plavix - PO 75 mg DAILY [facility] Administration Digoxin 0.25 mg 11/27/17 14:45 Lanoxin Injection - IVPUSH 11/28/17 08:46 0245,0845,1445,2045 [facility] Fludrocortisone Acetate 0.1 mg 11/26/17 10:00 11/27/17 10:20 Florinef - PO 0.1 mg DAILY [facility] Administration Hydrocortisone 20 mg/ 25 mg 11/26/17 10:00 11/27/17 10:19 Hydrocortisone 5 mg PO 25 mg BID [facility] Administration Amiodarone HCl/Dextrose 360 mg in 200 mls @ 16.667 mls/hr 11/27/17 15:15 15:13 Nexterone 360 Mg/200 Ml Bag IVPB 0.5 mg/min TITR [facility] 16.667 mls/hr Administration Protocol 0.5 MG/MIN Sodium Chloride 1,000 mls @ 1,000 mls/hr 11/27/17 15:30 11/27/17 15:35 Normal Saline - IV 11/27/17 16:29 1,000 mls/hr ONCE ONE Administration Losartan Potassium 25 mg 11/18/17 16:30 11/27/17 09:59 Cozaar - PO Not Given DAILY [facility] Methimazole 10 mg 11/25/17 23:30 11/27/17 10:22 Tapazole - PO 10 mg BID [facility] Administration Metoprolol Tartrate 5 mg 11/20/17 08:47 11/25/17 18:05 Lopressor Injection - IVPUSH 5 mg Q4H PRN Administration HYPERTENSION Metoprolol Tartrate 100 mg 11/21/17 10:00 11/27/17 11:25 Lopressor - PO Not Given BID [facility] Mupirocin 1 applic 11/27/17 22:00 Bactroban Ointment (For Decolonization) - NS 12/02/17 21:59 BID [facility] Oxycodone HCl 5 mg 11/18/17 17:02 11/26/17 21:50 Roxicodone - PO 5 mg Q6H PRN Administration PAIN LEVEL 7 - 10 Pantoprazole Sodium 40 mg 11/24/17 10:00 11/27/17 10:22 Protonix - PO 40 mg DAILY [facility] Administration Tramadol HCl 50 mg 11/18/17 17:01 11/22/17 22:18 Ultram - PO 50 mg Q8H PRN Administration PAIN LEVEL 4 - 6 Warfarin Sodium 1 mg 11/27/17 18:00 Coumadin - PO DAILY@1800 [facility] Impression 1. CKD 2. altered mental status 3. a-fib 4. DM 5. HTN 6. hx bladder cancer 7. leukocytosis 8. sepsis 9. hyperkalemia 10. chon 11. rapid a-fib 12. hypotension Plan - saline bolus - cardio evuating pt now for rythm/rate control - monitor renal function - cont fluids - monitor urine output - will follow Dr Baltazar
[2017-11-27] MEDS: NOREPINEPHRINE BITARTRATE 4,000 MCG in DEXTROSE 5%-WATER - 496 ML IV SCH (16:50)
[2017-11-27] MEDS ORDERED: SODIUM CHLORIDE 1,000 ML IV SCH (17:30)
[2017-11-27] MEDS ORDERED: WARFARIN NA 1 MG TABLET (FP) PO SCH (18:00)
--- NOTE | 2017-11-27 18:05 | PROC ---
Central Line Insertion Indication: Vasopressor Risks and Benefits Explained: No (2 PC consent, cant reach proxy) Consent on Chart: Yes (2 PC consent, cant reach proxy) Central Line: Triple Lumen Catheter Anesthesia: 1% Lidocaine Sterile Technique: Yes Ultrasound Guided Assistance: Yes Position: Right Internal Jugular Post Insertion: Yes: Bilateral Breath Sounds, Bilateral Chest Expansion, Chest X-Ray Ordered Sterile Dressing Applied: Yes Remarks: Central line was placed emergently for vasopressor BP control in response to marked hypotension in the setting of atrial fibrillation with rapid ventricular response unresponsive to fluid resuscitation and synchronized cardioversion. Patient's daughter was called for consent 3x without any response or call-back. Decision was made to place central line emergently. 2 physician consent was obtained. Sterilized area with chlorhexidine x2 Draped patient Anesthetized area with 1% lidocaine Using sterile technique, inserted central venous catheter into right IJ using Seldinger method and ultrasound guidance Flushed all ports Sutured line into surrounding skin and applied sterile dressing Procedure went uncomplicated Patient in no distress Breath sounds auscultated bilaterally Chest x-ray ordered for placement confirmation Estimated blood loss - minimal - 5cc Sergio Iniguez D.O., PGY2 Supervised by Dr. Aryan M.D.
[2017-11-27] MEDS: DIGOXIN 0.5 MG/2 ML AMPUL IVPUSH SCH ×2 (22:24→22:25)
[2017-11-27] MEDS: MUPIROCIN 2% TOPICAL OINTMENT FOR DECOLONIZATION NS SCH (22:25)
[2017-11-27] MEDS: HYDROCORTISONE SOD SUCCINATE 100 MG/2 ML VIAL IVPB SCH (22:25)
[2017-11-27] MEDS: ATORVASTATIN CA 40 MG TABLET (FP) PO SCH (22:26)
[2017-11-27] MEDS: CHLORHEXIDINE GLUCONATE 4% CLEANSER FOR DECOLONIZATION TP SCH (22:26)
[2017-11-28] MEDS ORDERED: NOREPINEPHRINE BITARTRATE 4 MG/4 ML ML IV ONE ×2 (00:32→09:01)
--- NOTE | 2017-11-28 00:42 | PN ---
Progress Note, Physician Chief Complaint: in icu,events noted, family at bedside History of Present Illness: afib,rapid rate,hypotension,hypoadrenal,hyperthyroid,awake comfortable no complaint,afebrile - Current Medication List Current Medications: Active Medications Acetaminophen (Tylenol -) 650 mg PO Q4H PRN PRN Reason: FEVER Last Admin: 11/26/17 13:01 Dose: 650 mg Acetaminophen (Tylenol -) 650 mg PO Q4H PRN PRN Reason: PAIN LEVEL 1 - 3 Aspirin (Asa -) 81 mg PO DAILY [facility] Last Admin: 11/27/17 10:22 Dose: 81 mg Atorvastatin Calcium (Lipitor -) 40 mg PO HS [facility] Last Admin: 11/27/17 22:26 Dose: 40 mg Chlorhexidine Gluconate (Hibiclens For Decolonization -) 1 applic TP HS [facility] Last Admin: 11/27/17 22:26 Dose: 1 applic Clopidogrel Bisulfate (Plavix -) 75 mg PO DAILY [facility] Last Admin: 11/27/17 10:22 Dose: 75 mg Digoxin (Lanoxin Injection -) 0.25 mg IVPUSH [id number] [facility] Stop: 11/28/17 08:46 Last Admin: 11/27/17 22:24 Dose: 0.25 mg Hydrocortisone Sodium Succinate (Solu-Cortef -) 100 mg IVPB Q8H-IV [facility] Last Admin: 11/27/17 22:25 Dose: 100 mg Amiodarone HCl/Dextrose (Nexterone 360 Mg/200 Ml Bag) 360 mg in 200 mls @ 16.667 mls/hr IVPB TITR [facility]; Protocol Last Admin: 11/27/17 15:13 Dose: 0.5 mg/min, 16.667 mls/hr Norepinephrine Bitartrate 4, (000 mcg/ Dextrose) 500 mls @ 37.5 mls/hr IV TITR [facility]; Protocol Last Admin: 11/27/17 16:50 Dose: 20 mcg/min, 150 mls/hr Sodium Chloride (Normal Saline -) 1,000 mls @ 75 mls/hr IV ASDIR [facility]GEL[facility] Stop: 11/28/17 06:49 Last Admin: 11/27/17 18:11 Dose: 75 mls/hr Methimazole (Tapazole -) 10 mg PO BID ANG[facility] Last Admin: 11/27/17 22:26 Dose: 10 mg Mupirocin (Bactroban Ointment (For Decolonization) -) 1 applic NS BID [facility] Stop: 12/02/17 21:59 Last Admin: 11/27/17 22:25 Dose: 1 applic Oxycodone HCl (Roxicodone -) 5 mg PO Q6H PRN PRN Reason: PAIN LEVEL 7 - 10 Last Admin: 11/26/17 21:50 Dose: 5 mg Pantoprazole Sodium (Protonix -) 40 mg PO DAILY [facility] Last Admin: 11/27/17 10:22 Dose: 40 mg Tramadol HCl (Ultram -) 50 mg PO Q8H PRN PRN Reason: PAIN LEVEL 4 - 6 Last Admin: 11/22/17 22:18 Dose: 50 mg Warfarin Sodium (Coumadin -) 1 mg PO DAILY@1800 [facility] Last Admin: 11/27/17 18:31 Dose: 1 mg - Objective Vital Signs: Vital Signs Temperature 97 F L 11/27/17 09:00 Pulse Rate 134 H 11/27/17 22:24 Respiratory Rate 18 11/27/17 11:00 Blood Pressure 58/48 L 11/27/17 16:50 O2 Sat by Pulse Oximetry (%) 98 11/26/17 21:00 Constitutional: Yes: Well Nourished, Calm Eyes: Yes: EOM Intact HENT: Yes: Normocephalic Neck: Yes: Trachea Midline Cardiovascular: Yes: Tachycardia, Pulse Irregular Respiratory: Yes: CTA Bilaterally Gastrointestinal: Yes: Normal Bowel Sounds ...Rectal Exam: Yes: Deferred Musculoskeletal: Yes: WNL Edema: Yes Edema: LLE: 1+, RLE: 1+ Neurological: Yes: Alert, Oriented Labs: CBC, BMP 11/26/17 05:30 11/27/17 05:30 INR, PTT INR 2.88 (0.83-1.09) H 11/27/17 05:30 Problem List - Problems (1) HEYDI (acute kidney injury) Code(s): N17.9 - ACUTE KIDNEY FAILURE, UNSPECIFIED (2) Adrenal mass Code(s): E27.9 - DISORDER OF ADRENAL GLAND, UNSPECIFIED (3) Hydronephrosis Code(s): N13.30 - UNSPECIFIED HYDRONEPHROSIS (4) Sepsis Code(s): A41.9 - SEPSIS, UNSPECIFIED ORGANISM Qualifiers: Sepsis type: sepsis due to unspecified organism Qualified Code(s): A41.9 - Sepsis, unspecified organism (5) Supratherapeutic INR Code(s): R79.1 - ABNORMAL COAGULATION PROFILE (6) Anemia Code(s): D64.9 - ANEMIA, UNSPECIFIED Assessment/Plan Current Active Problems HEYDI (acute kidney injury) (Acute) Adrenal mass (Acute) Hydronephrosis (Acute) Hyperthyroidism (Acute) Hypoalbuminemia (Acute) Sepsis (Acute) Supratherapeutic INR (Acute) Tachycardia (Acute) UTI (urinary tract infection) (Acute) Abnormal Lab Results 11/27/17 11/27/17 05:30 05:30 PT with INR 34.30 H INR 2.88 H Chloride 108 H BUN 55 H Laboratory Results - last 24 hr 11/26/17 11/27/17 11/27/17 05:30 05:30 05:30 PT with INR 34.30 H INR 2.88 H Sodium 140 Potassium 4.7 Chloride 108 H Carbon Dioxide 21 Anion Gap 11 BUN 55 H Creatinine 1.2 Creat Clearance w eGFR > 60 Random Glucose 79 Calcium 9.7 Cortisol AM Sample 4.2 plan: iv solucortef stress dose methimazole 10mg bid iv pressor id consult
[2017-11-28] MEDS: HYDROCORTISONE SOD SUCCINATE 100 MG/2 ML VIAL IVPB SCH ×2 (02:48→10:01)
[2017-11-28] MEDS: DIGOXIN 0.5 MG/2 ML AMPUL IVPUSH SCH ×2 (03:45→08:25)
[2017-11-28 06:22] LABS: BASO % 2.4 % (0-2.0); HEMATOCRIT 34.7 % (35.4-49); HEMOGLOBIN 10.7 GM/dL (11.7-16.9); LYMPH % 1.1 % (8-40); MCH 26.6 pg (25.7-33.7); MCHC 30.7 g/dl (32.0-35.9); MEAN CELL VOLUME 86.5 fl (80-96); MEAN PLT VOLUME 10.3 fl (7.5-11.1); MONO % 3.2 % (3.8-10.2); NEUT % 93.3 % (42.8-82.8); PLATELET COUNT 220 K/MM3 (134-434); RBC 4.01 M/mm3 (4.00-5.60); RDW 20.3 % (11.9-15.9); WHITE BLOOD COUNT 26.2 K/mm3 (4.0-10.0)
[2017-11-28 07:09] LABS: INR 3.12 (0.83-1.09); PROTHROMBIN TIME (PATIENT) 37.3 SEC (9.7-13.0)
[2017-11-28 07:17] LABS: ALBUMIN 1.6 g/dl (3.4-5.0); ALK PHOS 385 U/L (45-117); ANION GAP 12 MMOL/L (8-16); BILIRUBIN,TOTAL 0.9 mg/dL (0.2-1); BLOOD UREA NITROGEN 58 mg/dL (7-18); CALCIUM 9.4 mg/dL (8.5-10.1); CHLORIDE 108 mmol/L (98-107); CO2 18 mmol/L (21-32); CREATININE 1.4 mg/dL (0.55-1.3); GLUCOSE,RANDOM 260 mg/dL (74-106); POTASSIUM 4.6 mmol/L (3.5-5.1); SGOT/AST 53 U/L (15-37); SGPT/ALT 83 U/L (13-61); SODIUM 138 mmol/L (136-145); TOT PROT 5.5 g/dl (6.4-8.2)
--- NOTE | 2017-11-28 09:30 | CONSULT ---
Consult Consult Specialty:: PULM/CCM Referred by:: Dr. Iris Morales Reason for Consultation:: A-Fib w/ RVR - History of Present Illness Chief Complaint: Hypotension History of Present Illness: Mr. Pace is a 67 y/o man, SNF resident, w/ A-Fib on AC, end stage CHF & CAD as well as end stage bladder CA w/ mets --> lungs, s/p cystectomy/ileal conduit, c/ c/b hypoadrenal (on fludro/solucortef) and hyperthyroid (on methimazole). Mr. Pace was on the floor in progress of transition to Hospice and then CODE 99 yesterday for hypotension in the setting of A-Fib w/ RVR. Thus, pt started on Amiodarone & suddenly rushed down to the ICU. The pt has a Hx/o slipping into A- Fib w/ RVR. Of note, his chart includes rhythm strips from a similar incident on November 08. - History Source History Provided By: Medical Record Limitations to Obtaining History: Language Barrier - Past Medical History Cardio/Vascular: Yes: AFIB, CAD, HTN, Hyperlipdemia Pulmonary: Yes: Sleep Apnea (rule out) Renal/: Yes: Renal Inusuff, Cancer (bladder) Heme/Onc: Yes: Cancer Psych: Yes: Depression Endocrine: Yes: Diabetes Mellitus - Past Surgical History Past Surgical History: Yes: Ileal Conduit, Stent - Alcohol/Substance Use Hx Alcohol Use: No History of Substance Use: reports: None - Smoking History Smoking history: Never smoked Have you smoked in the past 12 months: No Aproximately how many cigarettes per day: 0 - Social History ADL: Independent History of Recent Travel: Yes ([place]) Home Medications - Allergies Allergies/Adverse Reactions: Allergies Allergy/AdvReac Type Severity Reaction Status Date / Time No Known Allergies Allergy Verified 10/27/17 23:31 - Home Medications Home Medications: Ambulatory Orders Aspirin [Aspirin EC] 81 mg PO DAILY 08/25/17 Citalopram Hydrobromide [Citalopram HBr] 10 mg PO DAILY 08/25/17 Clopidogrel Bisulfate [Plavix] 75 mg PO DAILY 08/25/17 Oxycodone HCl/Acetaminophen [Endocet 5-325 Tablet] 1 each PO Q6H PRN 08/25/17 Pantoprazole Sodium [Protonix] 40 mg PO DAILY 08/25/17 Acetaminophen [Tylenol .Regular Strength -] 650 mg PO Q6H PRN #120 tablet MDD 6 09/03/17 Docusate Sodium [Colace -] 300 mg PO HS #90 capsule 09/03/17 Lisinopril [Prinivil] 2.5 mg PO DAILY #30 tablet 09/03/17 Metoprolol Succinate [Toprol XL -] 50 mg PO DAILY #30 tab.sr.24h 09/03/17 Spironolactone [Aldactone -] 25 mg PO DAILY #30 tablet 09/03/17 Warfarin Sodium [Coumadin] 4 mg PO HS #20 tablet MDD 1 11/03/17 Family Disease History - Family Disease History Family History: Unable to Obtain Review of Systems Unable to obtain ROS, reason: Language barrier Physical Exam Vital Signs: Vital Signs Temperature 97.9 F 11/27/17 22:00 Pulse Rate 90 11/28/17 06:00 Respiratory Rate 18 11/28/17 02:00 Blood Pressure 103/71 11/28/17 06:00 O2 Sat by Pulse Oximetry (%) 100 11/27/17 21:00 Constitutional: Yes: Calm Eyes: Yes: WNL, Conjunctiva Clear HENT: Yes: WNL, Atraumatic, Normocephalic Neck: Yes: WNL, Supple, Trachea Midline Cardiovascular: Yes: Pulse Irregular Respiratory: Yes: WNL, Regular, CTA Bilaterally Gastrointestinal: Yes: Other (Ileostomy) ...Rectal Exam: Yes: Deferred Renal/: Yes: Other (Nephrostomy) Breast(s): Yes: WNL Musculoskeletal: Yes: Muscle Weakness Extremities: Yes: WNL Edema: Yes Edema: LUE: Trace, RUE: Trace, LLE: 1+, RLE: 1+ Peripheral Pulses WNL: Yes Integumentary: Yes: WNL Wound/Incision: Yes: Clean/Dry Neurological: Yes: WNL ...Motor Strength: WNL Psychiatric: Yes: Other (Depressed) Labs: CBC, BMP 11/28/17 05:30 11/28/17 05:30 INR, PTT INR 3.12 (0.83-1.09) H 11/28/17 05:30 Imaging - Results Chest X-ray: Report Reviewed (CXR 11/28: Since 11/27/2017 at 1611 hours again noted the diffuse metastatic foci with a right jugular line and lower cervical spine fusion. Tubing projects over the left chest. Impression : no significant change since prior study.), Image Reviewed (Metastatic dz) EKG: Image Reviewed (EKG 11/17: A-Fib w/ RVR @ 133, no specific ST or T-wave aberration, QTc = 461ms, no acute process (My Read).) Problem List - Problems (1) HEYDI (acute kidney injury) Code(s): N17.9 - ACUTE KIDNEY FAILURE, UNSPECIFIED (2) Adrenal mass Code(s): E27.9 - DISORDER OF ADRENAL GLAND, UNSPECIFIED (3) Hyperthyroidism Code(s): E05.90 - THYROTOXICOSIS, UNSP WITHOUT THYROTOXIC CRISIS OR STORM (4) Tachycardia Code(s): R00.0 - TACHYCARDIA, UNSPECIFIED (5) Atrial fibrillation Code(s): I48.91 - UNSPECIFIED ATRIAL FIBRILLATION Qualifiers: Atrial fibrillation type: persistent Qualified Code(s): I48.1 - Persistent atrial fibrillation (6) Atrial fibrillation with rapid ventricular response Code(s): I48.91 - UNSPECIFIED ATRIAL FIBRILLATION (7) 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 (8) CHF (congestive heart failure) Code(s): I50.9 - HEART FAILURE, UNSPECIFIED (9) Cardiomyopathy Code(s): I42.9 - CARDIOMYOPATHY, UNSPECIFIED Qualifiers: Cardiomyopathy type: ischemic Qualified Code(s): I25.5 - Ischemic cardiomyopathy (10) Chronic anticoagulation Code(s): Z79.01 - SERVICE DIRECTOR (CURRENT) USE OF ANTICOAGULANTS (11) Chronic systolic (congestive) heart failure Code(s): I50.22 - CHRONIC SYSTOLIC (CONGESTIVE) HEART FAILURE (12) Diabetes Code(s): E11.9 - TYPE 2 DIABETES MELLITUS WITHOUT COMPLICATIONS Assessment/Plan ASSESS: -Recurrent A-Fib w/ RVR -Hypotension m/l multi-factorial (UTI + hypo-adrenal) -CKD -CHF -CAD -End Stage PLAN: -10G Amio load -Transition to PO Amio -Cont Dig -Fio2 for an SpO2 > 92% -Nebs -Strict I's & O's -Monitor UOP -Replete e-lytes prn -Cont Plavix -Cont Coumadin for a goal of 2-3 -Follow LFTs -Cont Solu-Cortef -Cont Methimazole -Oxycodone for pain as much as pt wants -SCDs -PPI -GOC -No Further need for ICU -F/U Onc DGL, ACNP-BC [facility] ICU PULM/CCM [id number] Critical Care Time/MDM Note Total Critical Care Time: 39 Critical Care Statement: The care of this patient involved high complexity decision making to prevent further life threatening deterioration of the patient 's condition and/or to evaluate & treat vital organ system(s) failure or risk of failure.
[2017-11-28] MEDS: PANTOPRAZOLE 40 MG TABLET (FP) PO SCH (09:59)
[2017-11-28] MEDS: ASPIRIN 81 MG CHEWABLE TABLETS PO SCH (09:59)
[2017-11-28] MEDS: CLOPIDOGREL BISULFATE 75 MG TABLET (FP) PO SCH (09:59)
[2017-11-28] MEDS: MUPIROCIN 2% TOPICAL OINTMENT FOR DECOLONIZATION NS SCH ×2 (10:01→21:58)
[2017-11-28] MEDS ORDERED: PT OWN MED DRAWER 7, Y5N ONE ×2 (10:03→21:45)
[2017-11-28] MEDS: METHIMAZOLE 10 MG TABLET (FP) PO SCH (10:15)
--- NOTE | 2017-11-28 10:28 | PN ---
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 Currently with HR in 90s. No acute overnight events. Objective: Telemetry Review: atrial fibrillation with RVR Vital Signs - 24 hr 11/27/17 11/27/17 11/27/17 11:00 16:50 20:00 Temperature Pulse Rate 128 H 95 H 103 H Respiratory 18 17 Rate Blood Pressure 80/50 L 58/48 L 99/56 L O2 Sat by Pulse Oximetry (%) 11/27/17 11/27/17 11/27/17 21:00 22:00 22:25 Temperature 97.9 F Pulse Rate 104 H 134 H Respiratory 20 Rate Blood Pressure 98/67 O2 Sat by Pulse 100 Oximetry (%) 11/28/17 11/28/17 11/28/17 00:00 02:00 03:45 Temperature Pulse Rate 84 87 88 Respiratory 20 18 Rate Blood Pressure 117/66 109/63 O2 Sat by Pulse Oximetry (%) 11/28/17 06:00 Temperature Pulse Rate 90 Respiratory Rate Blood Pressure 103/71 O2 Sat by Pulse Oximetry (%) Physical Exam: Gen: elderly chronically ill male Cardiac: irreg, irreg, S1/S2, 2/6 systolic murmur loudest at LSB Pulm: clear breath sounds in anterior lung lind Ext: WWP. trace edema below ankles CBC,CMP WBC 26.2 K/mm3 (4.0-10.0) H 11/28/17 05:30 RBC 4.01 M/mm3 (4.00-5.60) 11/28/17 05:30 Hgb 10.7 GM/dL (11.7-16.9) L 11/28/17 05:30 Hct 34.7 % (35.4-49) L 11/28/17 05:30 MCV 86.5 fl (80-96) 11/28/17 05:30 MCH 26.6 pg (25.7-33.7) 11/28/17 05:30 MCHC 30.7 g/dl (32.0-35.9) L 11/28/17 05:30 RDW 20.3 % (11.9-15.9) H 11/28/17 05:30 Plt Count 220 K/MM3 (134-434) D 11/28/17 05:30 MPV 10.3 fl (7.5-11.1) 11/28/17 05:30 Absolute Neuts (auto) 24.5 K/mm3 (1.5-8.0) H 11/28/17 05:30 Total Counted 100 11/22/17 05:17 Neutrophils % 93.3 % (42.8-82.8) H 11/28/17 05:30 Neutrophils % (Manual) 94.0 % (42.8-82.8) H 11/26/17 05:30 Band Neutrophils % 0.0 % 11/26/17 05:30 Lymphocytes % 1.1 % (8-40) L D 11/28/17 05:30 Lymphocytes % (Manual) 2.0 % (8-40) L D 11/26/17 05:30 Monocytes % 3.2 % (3.8-10.2) L 11/28/17 05:30 Monocytes % (Manual) 4 % (3.8-10.2) D 11/26/17 05:30 Eosinophils % 0.0 % (0-4.5) D 11/28/17 05:30 Eosinophils % (Manual) 0.0 % (0-4.5) 11/26/17 05:30 Basophils % 2.4 % (0-2.0) H D 11/28/17 05:30 Basophils % (Manual) 0.0 % (0-2.0) 11/26/17 05:30 Myelocytes % (Man) 0 % (0-2) 11/26/17 05:30 Promyelocytes % (Man) 0 % (0-2) 11/26/17 05:30 Blast Cells % (Manual) 0 % (0-0) 11/26/17 05:30 Nucleated RBC % 0 % (0-0) 11/28/17 05:30 Metamyelocytes 0 % (0-2) 11/26/17 05:30 Hypochromia 0 11/26/17 05:30 Toxic Granulation 0 11/05/17 08:55 Dohle Bodies 0 11/05/17 08:55 Platelet Estimate Normal 11/26/17 05:30 Platelet Comment Present 11/21/17 05:30 Polychromasia 0 11/26/17 05:30 Poikilocytosis 0 11/26/17 05:30 Basophilic Stippling 0 11/05/17 08:55 Anisocytosis 1+ 11/26/17 05:30 Microcytosis 1+ 11/26/17 05:30 Macrocytosis 0 11/26/17 05:30 Spherocytes 1+ 11/09/17 05:30 Sickle Cells 0 11/05/17 08:55 Target Cells 0 11/05/17 08:55 Tear Drop Cells 0 11/05/17 08:55 Ovalocytes 1+ 11/19/17 05:30 Stomatocytes 0 11/05/17 08:55 Helmet Cells 0 11/05/17 08:55 [place] Bodies 0 11/05/17 08:55 Gr[place] Rings 0 11/05/17 08:55 Sonja Cells 1+ 11/06/17 05:30 Acanthocytes (Spur) 1+ 11/09/17 05:30 Rouleaux 0 11/05/17 08:55 Fragmented RBCs 0 11/05/17 08:55 Schistocytes 1+ 11/19/17 05:30 Sodium 138 mmol/L (136-145) 11/28/17 05:30 Potassium 4.6 mmol/L (3.5-5.1) 11/28/17 05:30 Chloride 108 mmol/L (98-107) H 11/28/17 05:30 Carbon Dioxide 18 mmol/L (21-32) L 11/28/17 05:30 Anion Gap 12 MMOL/L (8-16) 11/28/17 05:30 BUN 58 mg/dL (7-18) H 11/28/17 05:30 Creatinine 1.4 mg/dL (0.55-1.3) H 11/28/17 05:30 Creat Clearance w eGFR 50.25 (>60) 11/28/17 05:30 POC Glucometer 129 UNITS (80-120) 11/22/17 11:56 Random Glucose 260 mg/dL (74-106) H 11/28/17 05:30 Hemoglobin A1c % 6.7 % (4.2-6.3) H 11/19/17 05:30 Lactic Acid 1.5 mmol/L (0.4-2.0) 11/05/17 10:46 Calcium 9.4 mg/dL (8.5-10.1) 11/28/17 05:30 Phosphorus 2.7 mg/dL (2.5-4.9) 11/18/17 05:30 Magnesium 2.0 mg/dL (1.8-2.4) 11/18/17 05:30 Total Bilirubin 0.9 mg/dL (0.2-1) 11/28/17 05:30 Direct Bilirubin 0.2 mg/dL (0.0-0.2) 11/07/17 05:30 AST 53 U/L (15-37) H 11/28/17 05:30 ALT 83 U/L (13-61) H 11/28/17 05:30 Alkaline Phosphatase 385 U/L (45-117) H 11/28/17 05:30 Creatine Kinase 42 IU/L (26-308) 11/05/17 08:55 CK-MB (CK-2) 1.9 ng/mL (0.5-3.6) 11/05/17 08:55 Troponin I < 0.02 ng/ml (0.00-0.05) 11/05/17 08:55 Total Protein 5.5 g/dl (6.4-8.2) L 11/28/17 05:30 Albumin 1.6 g/dl (3.4-5.0) L 11/28/17 05:30 Triglycerides 127 mg/dL (0-150) 11/19/17 05:30 Cholesterol 152 mg/dL (50-200) 11/19/17 05:30 Total LDL Cholesterol 83 mg/dL (5-100) 11/19/17 05:30 HDL Cholesterol 41 mg/dL (40-60) 11/19/17 05:30 TSH 0.32 uIU/ml (0.358-3.74) L D 11/21/17 05:30 Free T4 1.22 ng/dl (0.76-1.16) H 11/26/17 05:30 Cortisol AM Sample 4.2 ug/dL (.) 11/26/17 05:30 Cortisol PM Sample 44.1 ug/dL (2.3-11.9) H 11/26/17 12:15 A/P: 67 year old male with past medical history significant for 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 Currently with HR in 90s. #Atrial fibrillation with RVR Etiology: underlying sepsis Treatment: Rate: None Rhythm: s/p IV amiodarone, ensure 10 g load with maintenance therapy (please discuss with pharmacy given drug-drug interactions) --please have pharmacy continue to dose digoxin AC: on coumadin with goal INR 2-3 (low threshold to stop if concern for significant bleed) --continue to follow LFTs #Anemia: hemoglobin stable, patient with hx of CAD s/p PCI but again if stents placed >1 year ago would recommend STOPPING plavix. #AHA/ACC Stage C HF; holding guideline directed medical therapy in setting of hypotension and sepsis. On metoprolol and losartan (held presently due to periods of hypotension). F/u BUN/Cr, electrolytes, daily wt, Is and Os. F/u chest Xray; may need to reduce IV fluids. #Sepsis; management per ICU team Continue to discuss with family goals of care. Pool Ji MD
[2017-11-28 12:16] LABS: ANISOCYTOSIS 1+; MACROCYTOSIS 0; PLATELET ESTIMATE NORMAL
--- NOTE | 2017-11-28 12:36 | PN ---
Progress Note, Physician Chief Complaint: AWAKE DEPRESSED S/P CODE 99 YESTERDAY FOR AFIB/RVR TACHYCARDIA EVENTS AND NOTES REVIEWED IN ICU NOW DENIES CHEST PAIN OR SOB - Current Medication List Current Medications: Active Medications Acetaminophen (Tylenol -) 650 mg PO Q4H PRN PRN Reason: FEVER Last Admin: 11/26/17 13:01 Dose: 650 mg Acetaminophen (Tylenol -) 650 mg PO Q4H PRN PRN Reason: PAIN LEVEL 1 - 3 Aspirin (Asa -) 81 mg PO DAILY [facility] Last Admin: 11/28/17 09:59 Dose: 81 mg Atorvastatin Calcium (Lipitor -) 40 mg PO HS [facility] Last Admin: 11/27/17 22:26 Dose: 40 mg Chlorhexidine Gluconate (Hibiclens For Decolonization -) 1 applic TP HS [facility] Last Admin: 11/27/17 22:26 Dose: 1 applic Clopidogrel Bisulfate (Plavix -) 75 mg PO DAILY [facility] Last Admin: 11/28/17 09:59 Dose: 75 mg Hydrocortisone Sodium Succinate (Solu-Cortef -) 100 mg IVPB Q8H-IV [facility] Last Admin: 11/28/17 10:01 Dose: 100 mg Amiodarone HCl/Dextrose (Nexterone 360 Mg/200 Ml Bag) 360 mg in 200 mls @ 16.667 mls/hr IVPB TITR [facility]; Protocol Last Admin: 11/27/17 15:13 Dose: 0.5 mg/min, 16.667 mls/hr Norepinephrine Bitartrate 4, (000 mcg/ Dextrose) 500 mls @ 37.5 mls/hr IV TITR [facility]; Protocol Last Titration: 11/28/17 06:00 Dose: 12 mcg/min, 90 mls/hr Methimazole (Tapazole -) 10 mg PO BID [facility] Last Admin: 11/28/17 10:15 Dose: 10 mg Mupirocin (Bactroban Ointment (For Decolonization) -) 1 applic NS BID [facility] Stop: 12/02/17 21:59 Last Admin: 11/28/17 10:01 Dose: 1 applic Oxycodone HCl (Roxicodone -) 5 mg PO Q6H PRN PRN Reason: PAIN LEVEL 7 - 10 Last Admin: 11/26/17 21:50 Dose: 5 mg Pantoprazole Sodium (Protonix -) 40 mg PO DAILY [facility] Last Admin: 11/28/17 09:59 Dose: 40 mg Tramadol HCl (Ultram -) 50 mg PO Q8H PRN PRN Reason: PAIN LEVEL 4 - 6 Last Admin: 11/22/17 22:18 Dose: 50 mg Warfarin Sodium (Coumadin -) 1 mg PO DAILY@1800 [facility] Last Admin: 11/27/17 18:31 Dose: 1 mg - Objective Vital Signs: Vital Signs Temperature 97.9 F 11/27/17 22:00 Pulse Rate 90 11/28/17 06:00 Respiratory Rate 18 11/28/17 09:00 Blood Pressure 103/71 11/28/17 06:00 O2 Sat by Pulse Oximetry (%) 100 11/28/17 09:00 Constitutional: Yes: Mild Distress Eyes: Yes: WNL HENT: Yes: WNL Neck: Yes: WNL Cardiovascular: Yes: Pulse Irregular Respiratory: Yes: WNL Gastrointestinal: Yes: Abdomen, Obese, Distention, Other (HARD) Genitourinary: Yes: [place] Present, Incontinence Musculoskeletal: Yes: Muscle Weakness Extremities: Yes: Other Edema: Yes Peripheral Pulses WNL: Yes Integumentary: Yes: WNL Wound/Incision: Yes: Clean/Dry, Dressing Dry and Intact Neurological: Yes: Confusion ...Motor Strength: LLE, RLE Psychiatric: Yes: Other Labs: CBC, BMP 11/28/17 05:30 11/28/17 05:30 INR, PTT INR 3.12 (0.83-1.09) H 11/28/17 05:30 Problem List - Problems (1) HEYDI (acute kidney injury) Code(s): N17.9 - ACUTE KIDNEY FAILURE, UNSPECIFIED (2) Adrenal mass Code(s): E27.9 - DISORDER OF ADRENAL GLAND, UNSPECIFIED (3) Hydronephrosis Code(s): N13.30 - UNSPECIFIED HYDRONEPHROSIS (4) Sepsis Code(s): A41.9 - SEPSIS, UNSPECIFIED ORGANISM Qualifiers: Sepsis type: sepsis due to unspecified organism Qualified Code(s): A41.9 - Sepsis, unspecified organism (5) Supratherapeutic INR Code(s): R79.1 - ABNORMAL COAGULATION PROFILE (6) UTI (urinary tract infection) Code(s): N39.0 - URINARY TRACT INFECTION, SITE NOT SPECIFIED Qualifiers: Urinary tract infection type: acute cystitis Hematuria presence: with hematuria Qualified Code(s): N30.01 - Acute cystitis with hematuria (7) Anemia Code(s): D64.9 - ANEMIA, UNSPECIFIED (8) Anxiety Code(s): F41.9 - ANXIETY DISORDER, UNSPECIFIED (9) Bladder cancer Code(s): C67.9 - MALIGNANT NEOPLASM OF BLADDER, UNSPECIFIED (10) 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, managed as type 2 Code(s): E10.9 - TYPE 1 DIABETES MELLITUS WITHOUT COMPLICATIONS (14) Hyperlipidemia Code(s): E78.5 - HYPERLIPIDEMIA, UNSPECIFIED Qualifiers: Hyperlipidemia type: pure hypercholesterolemia Qualified Code(s): E78.00 - Pure hypercholesterolemia, unspecified; E78.0 - Pure hypercholesterolemia (15) Hypertension Code(s): I10 - ESSENTIAL (PRIMARY) HYPERTENSION Qualifiers: Hypertension type: essential hypertension Qualified Code(s): I10 - Essential (primary) hypertension (16) Metastasis Code(s): C79.9 - SECONDARY MALIGNANT NEOPLASM OF UNSPECIFIED SITE (17) Poor appetite Code(s): R63.0 - ANOREXIA (18) S/P coronary artery stent placement Code(s): Z95.5 - PRESENCE OF CORONARY ANGIOPLASTY IMPLANT AND GRAFT (19) Tachycardia Code(s): R00.0 - TACHYCARDIA, UNSPECIFIED (20) Depression Code(s): F32.9 - MAJOR DEPRESSIVE DISORDER, SINGLE EPISODE, UNSPECIFIED Assessment/Plan START LEXAPRO FAMILY AWARE OF POOR PROGNOSIS PATIENT IS A FULL CODE SO FAR PAIN CONTROL DVT PROPHYLAXIS ONCOLOGY F/U
--- NOTE | 2017-11-28 14:36 | PN ---
Progress Note (short form) - Note Progress Note: Covering dr johnson chart reviewed bladder ca w mets lungs s/p cystectomy/ileal conduit hypoadrenal on fludro/solucortef severe chf/cad hyperthyroidism on methimazole Problemm 1. CKD 2. altered mental status 3. Rapid a-fib 4. DM 5. HTN 6. hx bladder cancer 7. leukocytosis 8. sepsis 9. hyperkalemia 10. chon 12. hypotension Active Medications Acetaminophen (Tylenol -) 650 mg PO Q4H PRN PRN Reason: FEVER Last Admin: 11/26/17 13:01 Dose: 650 mg Acetaminophen (Tylenol -) 650 mg PO Q4H PRN PRN Reason: PAIN LEVEL 1 - 3 Aspirin (Asa -) 81 mg PO DAILY [facility] Last Admin: 11/28/17 09:59 Dose: 81 mg Atorvastatin Calcium (Lipitor -) 40 mg PO HS [facility] Last Admin: 11/27/17 22:26 Dose: 40 mg Chlorhexidine Gluconate (Hibiclens For Decolonization -) 1 applic TP HS [facility] Last Admin: 11/27/17 22:26 Dose: 1 applic Clopidogrel Bisulfate (Plavix -) 75 mg PO DAILY [facility] Last Admin: 11/28/17 09:59 Dose: 75 mg Hydrocortisone Sodium Succinate (Solu-Cortef -) 100 mg IVPB Q8H-IV [facility] Last Admin: 11/28/17 10:01 Dose: 100 mg Amiodarone HCl/Dextrose (Nexterone 360 Mg/200 Ml Bag) 360 mg in 200 mls @ 16.667 mls/hr IVPB TITR [facility]; Protocol Last Admin: 11/27/17 15:13 Dose: 0.5 mg/min, 16.667 mls/hr Norepinephrine Bitartrate 4, (000 mcg/ Dextrose) 500 mls @ 37.5 mls/hr IV TITR [facility]; Protocol Last Titration: 11/28/17 06:00 Dose: 12 mcg/min, 90 mls/hr Methimazole (Tapazole -) 10 mg PO BID [facility] Last Admin: 11/28/17 10:15 Dose: 10 mg Mupirocin (Bactroban Ointment (For Decolonization) -) 1 applic NS BID [facility] Stop: 12/02/17 21:59 Last Admin: 11/28/17 10:01 Dose: 1 applic Oxycodone HCl (Roxicodone -) 5 mg PO Q6H PRN PRN Reason: PAIN LEVEL 7 - 10 Last Admin: 11/26/17 21:50 Dose: 5 mg Pantoprazole Sodium (Protonix -) 40 mg PO DAILY [facility] Last Admin: 11/28/17 09:59 Dose: 40 mg Tramadol HCl (Ultram -) 50 mg PO Q8H PRN PRN Reason: PAIN LEVEL 4 - 6 Last Admin: 11/22/17 22:18 Dose: 50 mg Warfarin Sodium (Coumadin -) 1 mg PO DAILY@1800 [facility] Last Admin: 11/27/17 18:31 Dose: 1 mg Last Vital Signs Temp Pulse Resp BP Pulse Ox 97.9 F 88 18 118/70 100 11/27/17 22:00 11/28/17 14:09 11/28/17 14:09 11/28/17 14:09 11/28/17 09:00 CBC, BMP 11/28/17 05:30 11/28/17 05:30 IMP- ckd with renal function acceptable so far non oliguric at present obstructive uropathy UTI Metabolic acidosis Prognosis is poor Plan same IVF on IV meds monitor urine output
[2017-11-28] MEDS: oxyCODONE HCL 5 MG TABLET PO PRN (16:49)
[2017-11-28] MEDS: AMIODARONE IN DEXTROSE,ISO-OSM 360 MG/200 ML BAG IVPB SCH (16:55)
--- NOTE | 2017-11-28 18:08 | EKG ---
Test Reason : Blood Pressure : / mmHG Vent. Rate : 099 BPM Atrial Rate : 131 BPM P-R Int : 000 ms QRS Dur : 074 ms QT Int : 286 ms P-R-T Axes : 000 -13 244 degrees QTc Int : 367 ms ATRIAL FIBRILLATION LOW VOLTAGE QRS ABNORMAL ECG WHEN COMPARED WITH ECG OF 17-NOV-2017 09:30, ATRIAL FIBRILLATION HAS REPLACED ATRIAL FLUTTER Confirmed by KAMLESH CAMARGO MD ([id number]) on 11/28/2017 6:07:53 PM Referred By: ARNOLD PICKERING Confirmed By:KAMLESH CAMARGO MD
[2017-11-28 18:27] LABS: URINE APPEARANCE CLOUDY; URINE BILIRUBIN NEGATIVE (<2.0 mg/dL); URINE COLOR YELLOW; URINE GLUCOSE (UA) NEGATIVE (NEGATIVE); URINE KETONE NEGATIVE (NEGATIVE); URINE LEUK ESTERASE 3+ (NEGATIVE); URINE NITRITE NEGATIVE (NEGATIVE); URINE PROTEIN 1+ (NEGATIVE); URINE UROBILINOGEN NEGATIVE mg/dL (0.2-1.0)
[2017-11-28 18:35] LABS: URINE BACTERIA RARE /hpf (NONE SEEN); URINE MUCUS RARE
[2017-11-28] MEDS: ATORVASTATIN CA 40 MG TABLET (FP) PO SCH (21:57)
[2017-11-28] MEDS: NOREPINEPHRINE BITARTRATE 4,000 MCG in DEXTROSE 5%-WATER - 496 ML IV SCH (21:58)
[2017-11-28] MEDS: CHLORHEXIDINE GLUCONATE 4% CLEANSER FOR DECOLONIZATION TP SCH (21:58)
[2017-11-29] MEDS: METHIMAZOLE 10 MG TABLET (FP) PO SCH ×2 (00:40→09:43)
[2017-11-29] MEDS: HYDROCORTISONE SOD SUCCINATE 100 MG/2 ML VIAL IVPB SCH ×3 (02:54→19:27)
--- NOTE | 2017-11-29 09:04 | PN ---
Progress Note (short form) - Note Progress Note: PULM/CCM Pt Seen & Examined in the ICU. CA+OX3, NAD, remains on low dose Levo. Active Medications Acetaminophen (Tylenol -) 650 mg PO Q4H PRN PRN Reason: FEVER Last Admin: 11/26/17 13:01 Dose: 650 mg Acetaminophen (Tylenol -) 650 mg PO Q4H PRN PRN Reason: PAIN LEVEL 1 - 3 Aspirin (Asa -) 81 mg PO DAILY [facility] Last Admin: 11/29/17 09:43 Dose: 81 mg Atorvastatin Calcium (Lipitor -) 40 mg PO HS [facility] Last Admin: 11/28/17 21:57 Dose: 40 mg Chlorhexidine Gluconate (Hibiclens For Decolonization -) 1 applic TP HS [facility] Last Admin: 11/28/17 21:58 Dose: 1 applic Clopidogrel Bisulfate (Plavix -) 75 mg PO DAILY [facility] Last Admin: 11/29/17 09:43 Dose: 75 mg Hydrocortisone Sodium Succinate (Solu-Cortef -) 100 mg IVPB Q8H-IV [facility] Last Admin: 11/29/17 09:43 Dose: 100 mg Amiodarone HCl/Dextrose (Nexterone 360 Mg/200 Ml Bag) 360 mg in 200 mls @ 16.667 mls/hr IVPB TITR [facility]; Protocol Last Admin: 11/28/17 16:55 Dose: 0.5 mg/min, 16.667 mls/hr Norepinephrine Bitartrate 4, (000 mcg/ Dextrose) 500 mls @ 37.5 mls/hr IV TITR [facility]; Protocol Last Titration: 11/29/17 05:51 Dose: 12 mcg/min, 90 mls/hr Methimazole (Tapazole -) 10 mg PO BID [facility] Last Admin: 11/29/17 09:43 Dose: 10 mg Mupirocin (Bactroban Ointment (For Decolonization) -) 1 applic NS BID [facility] Stop: 12/02/17 21:59 Last Admin: 11/29/17 09:43 Dose: 1 applic Oxycodone HCl (Roxicodone -) 5 mg PO Q6H PRN PRN Reason: PAIN LEVEL 7 - 10 Last Admin: 11/28/17 16:49 Dose: 5 mg Pantoprazole Sodium (Protonix -) 40 mg PO DAILY [facility] Last Admin: 11/29/17 09:43 Dose: 40 mg Tramadol HCl (Ultram -) 50 mg PO Q8H PRN PRN Reason: PAIN LEVEL 4 - 6 Last Admin: 11/22/17 22:18 Dose: 50 mg Warfarin Sodium (Coumadin -) 1 mg PO DAILY@1800 [facility] Last Admin: 11/27/17 18:31 Dose: 1 mg Vital Signs Period Temp Pulse Resp BP Sys/Maynard Pulse Ox Last 24 Hr 97.9 F-98.3 F 88-121 17-22 74-135/52-70 98-98 Intake & Output 11/26/17 11/27/17 11/28/17 11/29/17 23:59 23:59 23:59 23:59 Intake Total 840 1395 2762.2 676.6 Output Total 3100 500 1950 750 Balance -2260 895 812.2 -73.4 Weight 78.608 kg GEN: elderly chronically ill male, CA+OX3, NAD PULM: CTAB CV: irreg, irreg, S1/S2, 2/6 systolic murmur loudest at LSB Neck: Right IJ line c/d/i Ext: WWP. trace edema below ankles (no change from day prior) CBC, BMP 11/28/17 05:30 11/28/17 05:30 Microbiology 11/16/17 11:02 Nephrostomy Tube Drainage Gram Stain - Final 11/16/17 11:02 Nephrostomy Tube Drainage Body Fluid Culture - Final NO GROWTH OF AEROBIC ORGANISMS AFTER 48 HOURS INCUBATION 11/16/17 11:02 Nephrostomy Tube Drainage Anaerobic Culture - Final NO ANAEROBES WERE ISOLATED 11/05/17 08:55 Blood - Peripheral Venous Blood Culture - Final NO GROWTH AFTER 5 DAYS INCUBATION 11/05/17 08:55 Blood - Peripheral Venous Blood Culture - Final NO GROWTH AFTER 5 DAYS INCUBATION 11/05/17 08:55 Urine - Urine - Catheterized Urine Culture - Final Pseudomonas Aeruginosa CXR 11/28: Since 11/27/2017 at 1611 hours again noted the diffuse metastatic foci with a right jugular line and lower cervical spine fusion. Tubing projects over the left chest. Impression : no significant change since prior study ASSESS: -Recurrent A-Fib w/ RVR -Hypotension m/l multi-factorial (UTI + hypo-adrenal) -CKD -CHF -CAD -End Stage PLAN: -10G Amio load -Transition to PO Amio -Cont Dig -Fio2 for an SpO2 > 92% -Nebs -Strict I's & O's -Monitor UOP -Replete e-lytes prn -Cont Plavix -Cont Coumadin for a goal of 2-3 -Follow LFTs -Cont Solu-Cortef -Cont Methimazole -Oxycodone for pain as much as pt wants -SCDs -PPI -GOC -No Further need for ICU -F/U Onc DGL, ACNP-BC [facility] ICU PULM/CCM 4436 Critical Care Total Critical Care Time (in minutes): 38 Critical Care Statement: The care of this patient involved high complexity decision making to prevent further life threatening deterioration of the patient 's condition and/or to evaluate & treat vital organ system(s) failure or risk of failure. Problem List - Problems (1) HEYDI (acute kidney injury) Code(s): N17.9 - ACUTE KIDNEY FAILURE, UNSPECIFIED (2) Adrenal mass Code(s): E27.9 - DISORDER OF ADRENAL GLAND, UNSPECIFIED (3) Hyperthyroidism Code(s): E05.90 - THYROTOXICOSIS, UNSP WITHOUT THYROTOXIC CRISIS OR STORM (4) Tachycardia Code(s): R00.0 - TACHYCARDIA, UNSPECIFIED (5) Atrial fibrillation Code(s): I48.91 - UNSPECIFIED ATRIAL FIBRILLATION Qualifiers: Atrial fibrillation type: persistent Qualified Code(s): I48.1 - Persistent atrial fibrillation (6) Atrial fibrillation with rapid ventricular response Code(s): I48.91 - UNSPECIFIED ATRIAL FIBRILLATION (7) 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 (8) CHF (congestive heart failure) Code(s): I50.9 - HEART FAILURE, UNSPECIFIED (9) Cardiomyopathy Code(s): I42.9 - CARDIOMYOPATHY, UNSPECIFIED Qualifiers: Cardiomyopathy type: ischemic Qualified Code(s): I25.5 - Ischemic cardiomyopathy (10) Chronic anticoagulation Code(s): Z79.01 - INTERMEDIATE (CURRENT) USE OF ANTICOAGULANTS (11) Chronic systolic (congestive) heart failure Code(s): I50.22 - CHRONIC SYSTOLIC (CONGESTIVE) HEART FAILURE (12) Diabetes Code(s): E11.9 - TYPE 2 DIABETES MELLITUS WITHOUT COMPLICATIONS
[2017-11-29] MEDS ORDERED: PT OWN MED DRAWER 7, Y5N ONE ×3 (09:42→20:43)
[2017-11-29] MEDS: CLOPIDOGREL BISULFATE 75 MG TABLET (FP) PO SCH (09:43)
[2017-11-29] MEDS: ASPIRIN 81 MG CHEWABLE TABLETS PO SCH (09:43)
[2017-11-29] MEDS: PANTOPRAZOLE 40 MG TABLET (FP) PO SCH (09:43)
[2017-11-29] MEDS: MUPIROCIN 2% TOPICAL OINTMENT FOR DECOLONIZATION NS SCH ×2 (09:43→23:50)
--- NOTE | 2017-11-29 10:40 | PN ---
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 Currently with HR in 110s. --No acute overnight events. --denies any chest pain Objective: Telemetry Review: atrial fibrillation with RVR HR 110s Physical Exam: Vital Signs - 24 hr 11/28/17 11/28/17 11/28/17 14:09 16:00 18:00 Temperature Pulse Rate 88 109 H 121 H Respiratory 18 22 H 20 Rate Blood Pressure 118/70 105/60 88/61 L O2 Sat by Pulse Oximetry (%) 11/28/17 11/28/17 11/28/17 20:00 21:00 21:58 Temperature 98.2 F Pulse Rate 121 H 118 H Respiratory 19 Rate Blood Pressure 100/65 87/58 L O2 Sat by Pulse 98 Oximetry (%) 11/28/17 11/29/17 11/29/17 22:00 00:00 02:00 Temperature 97.9 F Pulse Rate 114 H 116 H 110 H Respiratory 17 19 19 Rate Blood Pressure 87/61 L 74/54 L 82/61 L O2 Sat by Pulse Oximetry (%) 11/29/17 11/29/17 11/29/17 03:00 04:00 05:00 Temperature Pulse Rate 114 H 117 H 107 H Respiratory 19 18 18 Rate Blood Pressure 98/57 L 91/52 L 90/56 L O2 Sat by Pulse Oximetry (%) 11/29/17 11/29/17 11/29/17 05:51 06:00 07:00 Temperature 98.3 F Pulse Rate 113 H 101 H 118 H Respiratory 18 18 Rate Blood Pressure 90/56 L 113/55 L 108/58 L O2 Sat by Pulse Oximetry (%) 11/29/17 11/29/17 08:00 10:00 Temperature Pulse Rate 116 H 112 H Respiratory 18 18 Rate Blood Pressure 115/69 135/68 O2 Sat by Pulse 98 Oximetry (%) Gen: elderly chronically ill male Cardiac: irreg, irreg, S1/S2, 2/6 systolic murmur loudest at LSB Neck: Right IJ line c/d/i Pulm: clear breath sounds in anterior lung lind Ext: WWP. trace edema below ankles (no change from day prior) Labs: reviewed. AM labs pending WBC 26.2 K/mm3 (4.0-10.0) H 11/28/17 05:30 RBC 4.01 M/mm3 (4.00-5.60) 11/28/17 05:30 Hgb 10.7 GM/dL (11.7-16.9) L 11/28/17 05:30 Hct 34.7 % (35.4-49) L 11/28/17 05:30 MCV 86.5 fl (80-96) 11/28/17 05:30 MCH 26.6 pg (25.7-33.7) 11/28/17 05:30 MCHC 30.7 g/dl (32.0-35.9) L 11/28/17 05:30 RDW 20.3 % (11.9-15.9) H 11/28/17 05:30 Plt Count 220 K/MM3 (134-434) D 11/28/17 05:30 MPV 10.3 fl (7.5-11.1) 11/28/17 05:30 Absolute Neuts (auto) 24.5 K/mm3 (1.5-8.0) H 11/28/17 05:30 Total Counted 100 11/22/17 05:17 Neutrophils % 93.3 % (42.8-82.8) H 11/28/17 05:30 Neutrophils % (Manual) 94.0 % (42.8-82.8) H 11/26/17 05:30 Band Neutrophils % 0.0 % 11/26/17 05:30 Lymphocytes % 1.1 % (8-40) L D 11/28/17 05:30 Lymphocytes % (Manual) 2.0 % (8-40) L D 11/26/17 05:30 Monocytes % 3.2 % (3.8-10.2) L 11/28/17 05:30 Monocytes % (Manual) 4 % (3.8-10.2) D 11/26/17 05:30 Eosinophils % 0.0 % (0-4.5) D 11/28/17 05:30 Eosinophils % (Manual) 0.0 % (0-4.5) 11/26/17 05:30 Basophils % 2.4 % (0-2.0) H D 11/28/17 05:30 Basophils % (Manual) 0.0 % (0-2.0) 11/26/17 05:30 Myelocytes % (Man) 0 % (0-2) 11/26/17 05:30 Promyelocytes % (Man) 0 % (0-2) 11/26/17 05:30 Blast Cells % (Manual) 0 % (0-0) 11/26/17 05:30 Nucleated RBC % 0 % (0-0) 11/28/17 05:30 Metamyelocytes 0 % (0-2) 11/26/17 05:30 Hypochromia 0 11/26/17 05:30 Toxic Granulation 0 11/05/17 08:55 Dohle Bodies 0 11/05/17 08:55 Platelet Estimate Normal 11/26/17 05:30 Platelet Comment Present 11/21/17 05:30 Polychromasia 0 11/26/17 05:30 Poikilocytosis 0 11/26/17 05:30 Basophilic Stippling 0 11/05/17 08:55 Anisocytosis 1+ 11/26/17 05:30 Microcytosis 1+ 11/26/17 05:30 Macrocytosis 0 11/26/17 05:30 Spherocytes 1+ 11/09/17 05:30 Sickle Cells 0 11/05/17 08:55 Target Cells 0 11/05/17 08:55 Tear Drop Cells 0 11/05/17 08:55 Ovalocytes 1+ 11/19/17 05:30 Stomatocytes 0 11/05/17 08:55 Helmet Cells 0 11/05/17 08:55 [place] Bodies 0 11/05/17 08:55 Waddy Rings 0 11/05/17 08:55 Flora Cells 1+ 11/06/17 05:30 Acanthocytes (Spur) 1+ 11/09/17 05:30 Rouleaux 0 11/05/17 08:55 Fragmented RBCs 0 11/05/17 08:55 Schistocytes 1+ 11/19/17 05:30 Sodium 138 mmol/L (136-145) 11/28/17 05:30 Potassium 4.6 mmol/L (3.5-5.1) 11/28/17 05:30 Chloride 108 mmol/L (98-107) H 11/28/17 05:30 Carbon Dioxide 18 mmol/L (21-32) L 11/28/17 05:30 Anion Gap 12 MMOL/L (8-16) 11/28/17 05:30 BUN 58 mg/dL (7-18) H 11/28/17 05:30 Creatinine 1.4 mg/dL (0.55-1.3) H 11/28/17 05:30 Creat Clearance w eGFR 50.25 (>60) 11/28/17 05:30 POC Glucometer 129 UNITS (80-120) 11/22/17 11:56 Random Glucose 260 mg/dL (74-106) H 11/28/17 05:30 Hemoglobin A1c % 6.7 % (4.2-6.3) H 11/19/17 05:30 Lactic Acid 1.5 mmol/L (0.4-2.0) 11/05/17 10:46 Calcium 9.4 mg/dL (8.5-10.1) 11/28/17 05:30 Phosphorus 2.7 mg/dL (2.5-4.9) 11/18/17 05:30 Magnesium 2.0 mg/dL (1.8-2.4) 11/18/17 05:30 Total Bilirubin 0.9 mg/dL (0.2-1) 11/28/17 05:30 Direct Bilirubin 0.2 mg/dL (0.0-0.2) 11/07/17 05:30 AST 53 U/L (15-37) H 11/28/17 05:30 ALT 83 U/L (13-61) H 11/28/17 05:30 Alkaline Phosphatase 385 U/L (45-117) H 11/28/17 05:30 Creatine Kinase 42 IU/L (26-308) 11/05/17 08:55 CK-MB (CK-2) 1.9 ng/mL (0.5-3.6) 11/05/17 08:55 Troponin I < 0.02 ng/ml (0.00-0.05) 11/05/17 08:55 Total Protein 5.5 g/dl (6.4-8.2) L 11/28/17 05:30 Albumin 1.6 g/dl (3.4-5.0) L 11/28/17 05:30 Triglycerides 127 mg/dL (0-150) 11/19/17 05:30 Cholesterol 152 mg/dL (50-200) 11/19/17 05:30 Total LDL Cholesterol 83 mg/dL (5-100) 11/19/17 05:30 HDL Cholesterol 41 mg/dL (40-60) 11/19/17 05:30 TSH 0.32 uIU/ml (0.358-3.74) L D 11/21/17 05:30 Free T4 1.22 ng/dl (0.76-1.16) H 11/26/17 05:30 Cortisol AM Sample 4.2 ug/dL (.) 11/26/17 05:30 Cortisol PM Sample 44.1 ug/dL (2.3-11.9) H 11/26/17 12:15 A/P: 67 year old male with past medical history significant for 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 Currently with HR in 110ss. #Atrial fibrillation with RVR Etiology: underlying sepsis Treatment: Rate: None Rhythm: s/p IV amiodarone, ensure 10 g load followed by maintenance therapy ( please discuss with pharmacy re: dosing given drug-drug interactions) --please have pharmacy continue to dose digoxin AC: on coumadin with goal INR 2-3 (low threshold to stop if concern for significant bleed) --continue to follow LFTs #Anemia: hemoglobin stable, patient with hx of CAD s/p PCI but again if stents placed >1 year ago would recommend STOPPING plavix. #AHA/ACC Stage C HF; holding guideline directed medical therapy in setting of hypotension and sepsis. On metoprolol and losartan (held presently due to periods of hypotension). F/u BUN/Cr, electrolytes, daily wt, Is and Os. #Sepsis; management per ICU team Continue to discuss with family goals of care. Pool Ji MD
[2017-11-29] MEDS ORDERED: ACETAMINOPHEN 325 MG TABLET (FP) PO PRN ×2 (13:53)
[2017-11-29] MEDS ORDERED: METOPROLOL TARTRATE 5 MG/5 ML VIAL IVPUSH ONE (13:53)
[2017-11-29] MEDS ORDERED: oxyCODONE HCL 5 MG TABLET PO PRN (13:53)
[2017-11-29] MEDS ORDERED: traMADol HCL 50 MG TABLET PO PRN (13:53)
[2017-11-29] MEDS ORDERED: AMIODARONE IN DEXTROSE,ISO-OSM 360 MG/200 ML BAG IVPB SCH (13:53)
--- NOTE | 2017-11-29 14:30 | PN ---
Progress Note, Physician Chief Complaint: AWAKE ALERT DEPRESSED DENIES CHEST PAIN OR SOB - Current Medication List Current Medications: Active Medications Acetaminophen (Tylenol -) 650 mg PO Q4H PRN PRN Reason: FEVER Acetaminophen (Tylenol -) 650 mg PO Q4H PRN PRN Reason: PAIN LEVEL 1 - 3 Aspirin (Asa -) 81 mg PO DAILY [facility] Atorvastatin Calcium (Lipitor -) 40 mg PO HS [facility] Chlorhexidine Gluconate (Hibiclens For Decolonization -) 1 applic TP HS [facility] Last Admin: 11/28/17 21:58 Dose: 1 applic Clopidogrel Bisulfate (Plavix -) 75 mg PO DAILY [facility] Hydrocortisone Sodium Succinate (Solu-Cortef -) 100 mg IVPB Q8H-IV [facility] Last Admin: 11/29/17 09:43 Dose: 100 mg Norepinephrine Bitartrate 4, (000 mcg/ Dextrose) 500 mls @ 37.5 mls/hr IV TITR [facility]; Protocol Last Titration: 11/29/17 05:51 Dose: 12 mcg/min, 90 mls/hr Amiodarone HCl/Dextrose (Nexterone 360 Mg/200 Ml Bag) 360 mg in 200 mls @ 16.667 mls/hr IVPB TITR [facility]; Protocol Methimazole (Tapazole -) 10 mg PO BID [facility] Mupirocin (Bactroban Ointment (For Decolonization) -) 1 applic NS BID [facility] Stop: 12/02/17 21:59 Last Admin: 11/29/17 09:43 Dose: 1 applic Oxycodone HCl (Roxicodone -) 5 mg PO Q6H PRN PRN Reason: PAIN LEVEL 7 - 10 Pantoprazole Sodium (Protonix -) 40 mg PO DAILY [facility] Tramadol HCl (Ultram -) 50 mg PO Q8H PRN PRN Reason: PAIN LEVEL 4 - 6 Warfarin Sodium (Coumadin -) 1 mg PO DAILY@1800 [facility] - Objective Vital Signs: Vital Signs Temperature 98.3 F 11/29/17 06:00 Pulse Rate 108 H 11/29/17 13:00 Respiratory Rate 20 11/29/17 13:00 Blood Pressure 116/62 11/29/17 13:00 O2 Sat by Pulse Oximetry (%) 98 11/29/17 10:00 Constitutional: Yes: Mild Distress Eyes: Yes: WNL HENT: Yes: WNL Neck: Yes: WNL Cardiovascular: Yes: Pulse Irregular Respiratory: Yes: On Nasal O2, Poor Air Entry Gastrointestinal: Yes: Distention, Other Genitourinary: Yes: [place] Present Musculoskeletal: Yes: Muscle Weakness Extremities: Yes: Other Edema: Yes Edema: LLE: 1+, RLE: 1+ Peripheral Pulses WNL: Yes Integumentary: Yes: Erythema, Venous Stasis Changes Wound/Incision: Yes: Open to air, Reddened Neurological: Yes: Pre-Existing Deficit, Weakness ...Motor Strength: LLE, RLE Psychiatric: Yes: Other Labs: CBC, BMP 11/28/17 05:30 11/28/17 05:30 INR, PTT INR 3.12 (0.83-1.09) H 11/28/17 05:30 Problem List - Problems (1) HEYDI (acute kidney injury) Code(s): N17.9 - ACUTE KIDNEY FAILURE, UNSPECIFIED (2) Adrenal mass Code(s): E27.9 - DISORDER OF ADRENAL GLAND, UNSPECIFIED (3) Hydronephrosis Code(s): N13.30 - UNSPECIFIED HYDRONEPHROSIS (4) Sepsis Code(s): A41.9 - SEPSIS, UNSPECIFIED ORGANISM Qualifiers: Sepsis type: sepsis due to unspecified organism Qualified Code(s): A41.9 - Sepsis, unspecified organism (5) Supratherapeutic INR Code(s): R79.1 - ABNORMAL COAGULATION PROFILE (6) UTI (urinary tract infection) Code(s): N39.0 - URINARY TRACT INFECTION, SITE NOT SPECIFIED Qualifiers: Urinary tract infection type: acute cystitis Hematuria presence: with hematuria Qualified Code(s): N30.01 - Acute cystitis with hematuria (7) Anemia Code(s): D64.9 - ANEMIA, UNSPECIFIED (8) Anxiety Code(s): F41.9 - ANXIETY DISORDER, UNSPECIFIED (9) Bladder cancer Code(s): C67.9 - MALIGNANT NEOPLASM OF BLADDER, UNSPECIFIED (10) 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, managed as type 2 Code(s): E10.9 - TYPE 1 DIABETES MELLITUS WITHOUT COMPLICATIONS (14) Hyperlipidemia Code(s): E78.5 - HYPERLIPIDEMIA, UNSPECIFIED Qualifiers: Hyperlipidemia type: pure hypercholesterolemia Qualified Code(s): E78.00 - Pure hypercholesterolemia, unspecified; E78.0 - Pure hypercholesterolemia (15) Hypertension Code(s): I10 - ESSENTIAL (PRIMARY) HYPERTENSION Qualifiers: Hypertension type: essential hypertension Qualified Code(s): I10 - Essential (primary) hypertension (16) Metastasis Code(s): C79.9 - SECONDARY MALIGNANT NEOPLASM OF UNSPECIFIED SITE (17) Poor appetite Code(s): R63.0 - ANOREXIA (18) S/P coronary artery stent placement Code(s): Z95.5 - PRESENCE OF CORONARY ANGIOPLASTY IMPLANT AND GRAFT (19) Tachycardia Code(s): R00.0 - TACHYCARDIA, UNSPECIFIED (20) Depression Code(s): F32.9 - MAJOR DEPRESSIVE DISORDER, SINGLE EPISODE, UNSPECIFIED Assessment/Plan START [facility] FAMILY AWARE OF POOR PROGNOSIS PATIENT IS A FULL CODE SO FAR NEED PALLIATIVE CARE DISCUSSION WILL DISCUSS DNR/DNI PAIN CONTROL DVT PROPHYLAXIS ONCOLOGY F/U SHOULD BE A SNF PLACEMENT UNDER COMFORT CARE AT THIS POINT
--- NOTE | 2017-11-29 16:09 | PN ---
Progress Note (short form) - Note Progress Note: Covering dr johnson chart reviewed bladder ca w mets lungs s/p cystectomy/ileal conduit hypoadrenal on fludro/solucortef severe chf/cad hyperthyroidism on methimazole Problemm 1. CKD 2. altered mental status 3. Rapid a-fib 4. DM 5. HTN 6. hx bladder cancer 7. leukocytosis 8. sepsis 9. hyperkalemia 10. chon 12. hypotension Current Medications Acetaminophen (Tylenol -) 650 mg PO Q4H PRN PRN Reason: FEVER Acetaminophen (Tylenol -) 650 mg PO Q4H PRN PRN Reason: PAIN LEVEL 1 - 3 Aspirin (Asa -) 81 mg PO DAILY [facility] Atorvastatin Calcium (Lipitor -) 40 mg PO HS [facility] Chlorhexidine Gluconate (Hibiclens For Decolonization -) 1 applic TP HS COUNTS INCLUDE 234 BEDS AT THE [facility] Last Admin: 11/28/17 21:58 Dose: 1 applic Clopidogrel Bisulfate (Plavix -) 75 mg PO DAILY COUNTS INCLUDE 234 BEDS AT THE [facility] Hydrocortisone Sodium Succinate (Solu-Cortef -) 100 mg IVPB Q8H-IV [facility] Last Admin: 11/29/17 09:43 Dose: 100 mg Norepinephrine Bitartrate 4, (000 mcg/ Dextrose) 500 mls @ 37.5 mls/hr IV TITR ANGELITA; Protocol Last Titration: 11/29/17 05:51 Dose: 12 mcg/min, 90 mls/hr Amiodarone HCl/Dextrose (Nexterone 360 Mg/200 Ml Bag) 360 mg in 200 mls @ 16.667 mls/hr IVPB TITR COUNTS INCLUDE 234 BEDS AT THE [facility]; Protocol Methimazole (Tapazole -) 10 mg PO BID COUNTS INCLUDE 234 BEDS AT THE [facility] Mupirocin (Bactroban Ointment (For Decolonization) -) 1 applic NS BID COUNTS INCLUDE 234 BEDS AT THE [facility] Stop: 12/02/17 21:59 Last Admin: 11/29/17 09:43 Dose: 1 applic Oxycodone HCl (Roxicodone -) 5 mg PO Q6H PRN PRN Reason: PAIN LEVEL 7 - 10 Pantoprazole Sodium (Protonix -) 40 mg PO DAILY COUNTS INCLUDE 234 BEDS AT THE [facility] Tramadol HCl (Ultram -) 50 mg PO Q8H PRN PRN Reason: PAIN LEVEL 4 - 6 Warfarin Sodium (Coumadin -) 1 mg PO DAILY@1800 ANGELITA Last Vital Signs Temp Pulse Resp BP Pulse Ox 98.3 F 92 H 20 110/67 98 10/21/18 06:00 11/29/17 15:00 11/29/17 15:00 11/29/17 15:00 11/29/17 10:00 Lungs clear Heart reg abd soft nontender ext no edema CBC, BMP 11/28/17 05:30 11/28/17 05:30 IMP- ckd with renal function acceptable so far non oliguric at present obstructive uropathy UTI Metabolic acidosis Prognosis is poor Plan same IVF on IV meds monitor urine output
[2017-11-29] MEDS ORDERED: WARFARIN NA 1 MG TABLET (FP) PO SCH (18:00)
[2017-11-29] MEDS: NOREPINEPHRINE BITARTRATE 4,000 MCG in DEXTROSE 5%-WATER - 496 ML IV SCH ×2 (19:18→19:21)
[2017-11-29] MEDS: ATORVASTATIN CA 40 MG TABLET (FP) PO SCH (23:50)
[2017-11-30] MEDS: CHLORHEXIDINE GLUCONATE 4% CLEANSER FOR DECOLONIZATION TP SCH ×2 (00:05→21:50)
[2017-11-30] MEDS: METHIMAZOLE 10 MG TABLET (FP) PO SCH ×3 (00:12→21:50)
[2017-11-30] MEDS ORDERED: NOREPINEPHRINE BITARTRATE 4 MG/4 ML ML IV ONE ×2 (01:51→14:27)
[2017-11-30] MEDS: HYDROCORTISONE SOD SUCCINATE 100 MG/2 ML VIAL IVPB SCH ×4 (02:02→21:49)
[2017-11-30] MEDS: NOREPINEPHRINE BITARTRATE 4,000 MCG in DEXTROSE 5%-WATER - 496 ML IV SCH ×2 (02:06→20:57)
[2017-11-30 06:39] LABS: HEMATOCRIT 33.2 % (35.4-49); HEMOGLOBIN 10.5 GM/dL (11.7-16.9); MCHC 31.7 g/dl (32.0-35.9); MEAN PLT VOLUME 10.6 fl (7.5-11.1); PLATELET COUNT 225 K/MM3 (134-434); RBC 3.91 M/mm3 (4.00-5.60); WHITE BLOOD COUNT 19.2 K/mm3 (4.0-10.0)
[2017-11-30 07:38] LABS: ALBUMIN 1.6 g/dl (3.4-5.0); ALK PHOS 386 U/L (45-117); ANION GAP 14 MMOL/L (8-16); BILIRUBIN,TOTAL 0.8 mg/dL (0.2-1); BLOOD UREA NITROGEN 55 mg/dL (7-18); CALCIUM 9.9 mg/dL (8.5-10.1); CHLORIDE 101 mmol/L (98-107); CO2 18 mmol/L (21-32); CREATININE 1.4 mg/dL (0.55-1.3); SGOT/AST 25 U/L (15-37); SGPT/ALT 78 U/L (13-61); SODIUM 133 mmol/L (136-145); TOT PROT 5.5 g/dl (6.4-8.2)
[2017-11-30 08:07] LABS: GLUCOSE,RANDOM 301 mg/dL (74-106)
--- NOTE | 2017-11-30 08:29 | PN ---
Progress Note, Physician - Current Medication List Current Medications: Active Medications Acetaminophen (Tylenol -) 650 mg PO Q4H PRN PRN Reason: FEVER Acetaminophen (Tylenol -) 650 mg PO Q4H PRN PRN Reason: PAIN LEVEL 1 - 3 Aspirin (Asa -) 81 mg PO DAILY [facility] Atorvastatin Calcium (Lipitor -) 40 mg PO HS [facility] Last Admin: 11/29/17 23:50 Dose: 40 mg Chlorhexidine Gluconate (Hibiclens For Decolonization -) 1 applic TP HS [facility] Last Admin: 11/30/17 00:05 Dose: 1 applic Clopidogrel Bisulfate (Plavix -) 75 mg PO DAILY [facility] Hydrocortisone Sodium Succinate (Solu-Cortef -) 100 mg IVPB Q8H-IV [facility] Last Admin: 11/30/17 02:02 Dose: 100 mg Norepinephrine Bitartrate 4, (000 mcg/ Dextrose) 500 mls @ 37.5 mls/hr IV TITR [facility]; Protocol Last Titration: 11/30/17 06:00 Dose: 7 mcg/min, 52.5 mls/hr Amiodarone HCl/Dextrose (Nexterone 360 Mg/200 Ml Bag) 360 mg in 200 mls @ 16.667 mls/hr IVPB TITR [facility]; Protocol Last Admin: 11/29/17 19:19 Dose: 0.5 mg/min, 16.667 mls/hr Methimazole (Tapazole -) 10 mg PO BID [facility] Last Admin: 11/30/17 00:12 Dose: 10 mg Mupirocin (Bactroban Ointment (For Decolonization) -) 1 applic NS BID [facility] Stop: 12/02/17 21:59 Last Admin: 11/29/17 23:50 Dose: 1 applic Oxycodone HCl (Roxicodone -) 5 mg PO Q6H PRN PRN Reason: PAIN LEVEL 7 - 10 Pantoprazole Sodium (Protonix -) 40 mg PO DAILY [facility] Tramadol HCl (Ultram -) 50 mg PO Q8H PRN PRN Reason: PAIN LEVEL 4 - 6 Warfarin Sodium (Coumadin -) 1 mg PO DAILY@1800 [facility] Last Admin: 11/29/17 17:37 Dose: Not Given - Objective Vital Signs: Vital Signs Temperature 98 F 11/30/17 06:00 Pulse Rate 106 H 11/30/17 07:00 Respiratory Rate 22 H 11/30/17 07:00 Blood Pressure 92/58 L 11/30/17 07:00 O2 Sat by Pulse Oximetry (%) 96 11/29/17 21:00 Labs: CBC, BMP 11/30/17 05:30 11/30/17 05:30 INR, PTT INR 3.12 (0.83-1.09) H 11/28/17 05:30 Problem List - Problems (1) Adrenal mass Code(s): E27.9 - DISORDER OF ADRENAL GLAND, UNSPECIFIED (2) Sepsis Code(s): A41.9 - SEPSIS, UNSPECIFIED ORGANISM Qualifiers: Sepsis type: sepsis due to unspecified organism Qualified Code(s): A41.9 - Sepsis, unspecified organism (3) Atrial fibrillation Code(s): I48.91 - UNSPECIFIED ATRIAL FIBRILLATION Qualifiers: Atrial fibrillation type: persistent Qualified Code(s): I48.1 - Persistent atrial fibrillation (4) CAD (coronary artery disease) Code(s): I25.10 - ATHSCL HEART DISEASE OF [place] CORONARY ARTERY W/O ANG PCTRS Qualifiers: Coronary Disease-Associated Artery/Lesion type: [place] artery [place] vs. 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 Code(s): C67.9 - MALIGNANT NEOPLASM OF BLADDER, UNSPECIFIED; C78.7 - SECONDARY MALIG NEOPLASM OF LIVER AND INTRAHEPATIC BILE DUCT (7) Diabetes Code(s): E11.9 - TYPE 2 DIABETES MELLITUS WITHOUT COMPLICATIONS Assessment/Plan - Problems (1) Adrenal mass Assessment/Plan: -cont on decadron -seen by forest logistics manager Code(s): E27.9 - DISORDER OF ADRENAL GLAND, UNSPECIFIED (2) Hydronephrosis Assessment/Plan: -R hydronephrosis -s/p R percutaneous nephrostomy tube -nephrology and urology on board -diuretic renal scan to assess patency or right ureter, as there was no output from nephrostomy Code(s): N13.30 - UNSPECIFIED HYDRONEPHROSIS (3) Sepsis Assessment/Plan: -finished IV ABT -continue routine labs monitor CBC -pt afebrile, last lactic acid WNL Code(s): A41.9 - SEPSIS, UNSPECIFIED ORGANISM Qualifiers: Sepsis type: sepsis due to unspecified organism Qualified Code(s): A41.9 - Sepsis, unspecified organism (4) Supratherapeutic INR Assessment/Plan: -warfarin PER INR -PT/INR Daily Code(s): R79.1 - ABNORMAL COAGULATION PROFILE (5) Tachycardia Assessment/Plan: -cardiology on board -Losartan 25mg tab PO QD -cont with tele monitoring -already on lopressor 100 mg po bid, Code(s): R00.0 - TACHYCARDIA, UNSPECIFIED (6) UTI (urinary tract infection) Assessment/Plan: -treated with ABT -ID on board -afebrile, asymptomatic Code(s): N39.0 - URINARY TRACT INFECTION, SITE NOT SPECIFIED Qualifiers: Urinary tract infection type: acute cystitis Hematuria presence: with hematuria Qualified Code(s): N30.01 - Acute cystitis with hematuria (7) Anemia Assessment/Plan: -serial CBC x 5 to monitor H/H -stool occult negative -iron profile shows iron deficiency, B12 and Thyroid unremarkable -Venofer Infusion x 1 yesterday Code(s): D64.9 - ANEMIA, UNSPECIFIED (8) Atrial fibrillation with rapid ventricular response ON AMIODORONE TRIAL OF DIG CARDIO ON BOARD Code(s): I48.91 - UNSPECIFIED ATRIAL FIBRILLATION (9) 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
--- NOTE | 2017-11-30 08:53 | PN ---
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 Currently with HR in 110ss. - Current Medication List Current Medications: Active Medications Acetaminophen (Tylenol -) 650 mg PO Q4H PRN PRN Reason: FEVER Acetaminophen (Tylenol -) 650 mg PO Q4H PRN PRN Reason: PAIN LEVEL 1 - 3 Aspirin (Asa -) 81 mg PO DAILY [facility] Atorvastatin Calcium (Lipitor -) 40 mg PO HS [facility] Last Admin: 11/29/17 23:50 Dose: 40 mg Chlorhexidine Gluconate (Hibiclens For Decolonization -) 1 applic TP HS [facility] Last Admin: 11/30/17 00:05 Dose: 1 applic Clopidogrel Bisulfate (Plavix -) 75 mg PO DAILY [facility] Digoxin (Lanoxin Injection -) 0.25 mg IVPUSH ONCE ONE Stop: 11/30/17 09:01 Hydrocortisone Sodium Succinate (Solu-Cortef -) 100 mg IVPB Q8H-IV [facility] Last Admin: 11/30/17 02:02 Dose: 100 mg Norepinephrine Bitartrate 4, (000 mcg/ Dextrose) 500 mls @ 37.5 mls/hr IV TITR [facility]; Protocol Last Titration: 11/30/17 06:00 Dose: 7 mcg/min, 52.5 mls/hr Amiodarone HCl/Dextrose (Nexterone 360 Mg/200 Ml Bag) 360 mg in 200 mls @ 16.667 mls/hr IVPB TITR [facility]; Protocol Last Admin: 11/29/17 19:19 Dose: 0.5 mg/min, 16.667 mls/hr Methimazole (Tapazole -) 10 mg PO BID [facility] Last Admin: 11/30/17 00:12 Dose: 10 mg Mupirocin (Bactroban Ointment (For Decolonization) -) 1 applic NS BID [facility] Stop: 12/02/17 21:59 Last Admin: 11/29/17 23:50 Dose: 1 applic Oxycodone HCl (Roxicodone -) 5 mg PO Q6H PRN PRN Reason: PAIN LEVEL 7 - 10 Pantoprazole Sodium (Protonix -) 40 mg PO DAILY [facility] Tramadol HCl (Ultram -) 50 mg PO Q8H PRN PRN Reason: PAIN LEVEL 4 - 6 Warfarin Sodium (Coumadin -) 1 mg PO DAILY@1800 [facility] Last Admin: 11/29/17 17:37 Dose: Not Given - Objective Vital Signs: Vital Signs Temperature 98 F 11/30/17 06:00 Pulse Rate 106 H 11/30/17 07:00 Respiratory Rate 22 H 11/30/17 07:00 Blood Pressure 92/58 L 11/30/17 07:00 O2 Sat by Pulse Oximetry (%) 96 11/29/17 21:00 Eyes: Yes: WNL, Conjunctiva Clear, EOM Intact HENT: Yes: WNL, Atraumatic, Normocephalic Neck: Yes: WNL, Supple, Trachea Midline Cardiovascular: Yes: Pulse Irregular, S1, S2 Respiratory: Yes: WNL, Regular, CTA Bilaterally Gastrointestinal: Yes: WNL, Normal Bowel Sounds Genitourinary: Yes: WNL Musculoskeletal: Yes: WNL Extremities: Yes: WNL Edema: No Integumentary: Yes: WNL Neurological: Yes: WNL, Alert, Oriented ...Motor Strength: WNL Psychiatric: Yes: WNL Labs: CBC, BMP 11/30/17 05:30 11/30/17 05:30 INR, PTT INR 3.12 (0.83-1.09) H 11/28/17 05:30 Assessment/Plan 67 year old male with past medical history significant for 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 Currently with HR in 110ss. #Atrial fibrillation with RVR Etiology: underlying sepsis Treatment: Rate: None Rhythm: s/p IV amiodarone, change to po 400 bid after iv loading , use dig prn for rate control AC: on coumadin with goal INR 2-3 (low threshold to stop if concern for significant bleed) --continue to follow LFTs #Anemia: hemoglobin stable, patient with hx of CAD s/p PCI but again if stents placed >1 year ago would recommend STOPPING plavix. #AHA/ACC Stage C HF; holding guideline directed medical therapy in setting of hypotension and sepsis. On metoprolol and losartan (held presently due to periods of hypotension). F/u BUN/Cr, electrolytes, daily wt, Is and Os. #Sepsis; management per ICU team cc time spent 37 min
[2017-11-30] MEDS ORDERED: DIGOXIN 0.5 MG/2 ML AMPUL IVPUSH ONE (09:00)
[2017-11-30] MEDS: MUPIROCIN 2% TOPICAL OINTMENT FOR DECOLONIZATION NS SCH ×2 (09:57→21:49)
[2017-11-30] MEDS: ASPIRIN 81 MG CHEWABLE TABLETS PO SCH (09:57)
[2017-11-30] MEDS: PANTOPRAZOLE 40 MG TABLET (FP) PO SCH (09:58)
[2017-11-30] MEDS ORDERED: CLOPIDOGREL BISULFATE 75 MG TABLET (FP) PO SCH (10:00)
[2017-11-30] MEDS ORDERED: PT OWN MED DRAWER 7, Y5N ONE ×2 (10:05→21:25)
[2017-11-30 11:11] LABS: PROTHROMBIN TIME (PATIENT) 48.4 SEC (9.7-13.0)
[2017-11-30 11:21] LABS: INR 4.04 (0.83-1.09)
--- NOTE | 2017-11-30 13:17 | PN ---
Teaching Attending Note Name of Resident: Gudelia Cortez ATTENDING PHYSICIAN STATEMENT I saw and evaluated the patient. I reviewed the resident's note and discussed the case with the resident. I agree with the resident's findings and plan as documented. SUBJECTIVE: Patient seen and examined in the ICU. Awake and interactive. Remains on Phenylephrine drip for hemodynamic support. Denies CP or SOB. Intake & Output 11/27/17 11/28/17 11/29/17 11/30/17 23:59 23:59 23:59 23:59 Intake Total 1395 2762.2 3166.8 1060 Output Total 500 1950 1650 200 Balance 895 812.2 1516.8 860 Weight 173 lb 4.8 oz 176 lb 1 oz Last Vital Signs Temp Pulse Resp BP Pulse Ox 98 F 108 H 20 103/65 96 11/30/17 09:49 11/30/17 13:00 11/30/17 13:00 11/30/17 13:00 11/29/17 21:00 Active Medications Acetaminophen (Tylenol -) 650 mg PO Q4H PRN PRN Reason: FEVER Acetaminophen (Tylenol -) 650 mg PO Q4H PRN PRN Reason: PAIN LEVEL 1 - 3 Aspirin (Asa -) 81 mg PO DAILY [facility] Last Admin: 11/30/17 09:57 Dose: 81 mg Atorvastatin Calcium (Lipitor -) 40 mg PO HS [facility] Last Admin: 11/29/17 23:50 Dose: 40 mg Chlorhexidine Gluconate (Hibiclens For Decolonization -) 1 applic TP HS [facility] Last Admin: 11/30/17 00:05 Dose: 1 applic Clopidogrel Bisulfate (Plavix -) 75 mg PO DAILY [facility] Last Admin: 11/30/17 09:57 Dose: 75 mg Hydrocortisone Sodium Succinate (Solu-Cortef -) 100 mg IVPB Q8H-IV [facility] Last Admin: 11/30/17 09:58 Dose: 100 mg Norepinephrine Bitartrate 4, (000 mcg/ Dextrose) 500 mls @ 37.5 mls/hr IV TITR [facility]; Protocol Last Titration: 11/30/17 11:00 Dose: 5 mcg/min, 37.5 mls/hr Amiodarone HCl/Dextrose (Nexterone 360 Mg/200 Ml Bag) 360 mg in 200 mls @ 16.667 mls/hr IVPB TITR [facility]; Protocol Last Admin: 11/29/17 19:19 Dose: 0.5 mg/min, 16.667 mls/hr Methimazole (Tapazole -) 10 mg PO BID [facility] Last Admin: 11/30/17 10:06 Dose: 10 mg Mupirocin (Bactroban Ointment (For Decolonization) -) 1 applic NS BID [facility] Stop: 12/02/17 21:59 Last Admin: 11/30/17 09:57 Dose: 1 applic Oxycodone HCl (Roxicodone -) 5 mg PO Q6H PRN PRN Reason: PAIN LEVEL 7 - 10 Pantoprazole Sodium (Protonix -) 40 mg PO DAILY [facility] Last Admin: 11/30/17 09:58 Dose: 40 mg Tramadol HCl (Ultram -) 50 mg PO Q8H PRN PRN Reason: PAIN LEVEL 4 - 6 Warfarin Sodium (Coumadin -) 1 mg PO DAILY@1800 [facility] Last Admin: 11/29/17 17:37 Dose: Not Given Constitutional: Yes: NAD Eyes: Yes: WNL, Conjunctiva Clear HENT: Yes: WNL, Atraumatic, Normocephalic Neck: Yes: WNL, Supple, Trachea Midline Cardiovascular: Yes: Pulse Irregular Respiratory: Yes: WNL, Regular, CTA Bilaterally Gastrointestinal: Yes: Other (Ileostomy) ...Rectal Exam: Yes: Deferred Renal/: Yes: Other (Nephrostomy) Breast(s): Yes: WNL Musculoskeletal: Yes: Muscle Weakness Extremities: Yes: WNL Edema: Yes Edema: LUE: Trace, RUE: Trace, LLE: 1+, RLE: 1+ Peripheral Pulses WNL: Yes Integumentary: Yes: WNL Wound/Incision: Yes: Clean/Dry Neurological: Yes: WNL ...Motor Strength: WNL Psychiatric: Yes: Other (Depressed) Labs: Laboratory Results - last 24 hr 11/30/17 11/30/17 11/30/17 05:30 05:30 10:39 WBC 19.2 H RBC 3.91 L Hgb 10.5 L Hct 33.2 L MCV 85.0 MCH 27.0 MCHC 31.7 L RDW 20.0 H Plt Count 225 MPV 10.6 PT with INR 48.40 H INR 4.04 H* Sodium 133 L Potassium 4.0 Chloride 101 Carbon Dioxide 18 L Anion Gap 14 BUN 55 H Creatinine 1.4 H Creat Clearance w eGFR 50.25 Random Glucose 301 H* Calcium 9.9 Total Bilirubin 0.8 AST 25 ALT 78 H Alkaline Phosphatase 386 H Total Protein 5.5 L Albumin 1.6 L Problem List - Problems (1) HEYDI (acute kidney injury) Code(s): N17.9 - ACUTE KIDNEY FAILURE, UNSPECIFIED (2) Adrenal mass Code(s): E27.9 - DISORDER OF ADRENAL GLAND, UNSPECIFIED (3) Hyperthyroidism Code(s): E05.90 - THYROTOXICOSIS, UNSP WITHOUT THYROTOXIC CRISIS OR STORM (4) Tachycardia Code(s): R00.0 - TACHYCARDIA, UNSPECIFIED (5) Atrial fibrillation Code(s): I48.91 - UNSPECIFIED ATRIAL FIBRILLATION Qualifiers: Atrial fibrillation type: persistent Qualified Code(s): I48.1 - Persistent atrial fibrillation (6) Atrial fibrillation with rapid ventricular response Code(s): I48.91 - UNSPECIFIED ATRIAL FIBRILLATION (7) 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 (8) CHF (congestive heart failure) Code(s): I50.9 - HEART FAILURE, UNSPECIFIED (9) Cardiomyopathy Code(s): I42.9 - CARDIOMYOPATHY, UNSPECIFIED Qualifiers: Cardiomyopathy type: ischemic Qualified Code(s): I25.5 - Ischemic cardiomyopathy (10) Chronic anticoagulation Code(s): Z79.01 - CARE HOME (CURRENT) USE OF ANTICOAGULANTS (11) Chronic systolic (congestive) heart failure Code(s): I50.22 - CHRONIC SYSTOLIC (CONGESTIVE) HEART FAILURE (12) Diabetes Code(s): E11.9 - TYPE 2 DIABETES MELLITUS WITHOUT COMPLICATIONS Assessment/Plan -Septic Shock / suspect component of Adreal failure -Recurrent A-Fib w/ RVR -CKD -CHF -CAD -End Stage PLAN: -IV Amio and transition to PO -Digoxin PRN -FiO2 for an SpO2 > 92% -Nebs -Strict I's & O's -Monitor UOP -Replete e-lytes prn -D/C plavix -Follow INR -Follow LFTs -Solu-Cortef: 50mg Q6h -Methimazole -Add Fludrocortisone -PPI Dr Varma Critical Care Time/MDM Note Total Critical Care Time: 39 Critical Care Statement: The care of this patient involved high complexity decision making to prevent further life threatening deterioration of the patient 's condition and/or to evaluate & treat vital organ system(s) failure or risk of failure.
--- NOTE | 2017-11-30 13:28 | PN ---
Progress Note, Physician History of Present Illness: Pt seen and examined at beside. He is awake and alert. His blood pressure and rate are improved. - Current Medication List Current Medications: Active Medications Acetaminophen (Tylenol -) 650 mg PO Q4H PRN PRN Reason: FEVER Acetaminophen (Tylenol -) 650 mg PO Q4H PRN PRN Reason: PAIN LEVEL 1 - 3 Aspirin (Asa -) 81 mg PO DAILY [facility] Last Admin: 11/30/17 09:57 Dose: 81 mg Atorvastatin Calcium (Lipitor -) 40 mg PO HS [facility] Last Admin: 11/29/17 23:50 Dose: 40 mg Chlorhexidine Gluconate (Hibiclens For Decolonization -) 1 applic TP HS [facility] Last Admin: 11/30/17 00:05 Dose: 1 applic Clopidogrel Bisulfate (Plavix -) 75 mg PO DAILY [facility] Last Admin: 11/30/17 09:57 Dose: 75 mg Hydrocortisone Sodium Succinate (Solu-Cortef -) 100 mg IVPB Q8H-IV [facility] Last Admin: 11/30/17 09:58 Dose: 100 mg Norepinephrine Bitartrate 4, (000 mcg/ Dextrose) 500 mls @ 37.5 mls/hr IV TITR [facility]; Protocol Last Titration: 11/30/17 11:00 Dose: 5 mcg/min, 37.5 mls/hr Amiodarone HCl/Dextrose (Nexterone 360 Mg/200 Ml Bag) 360 mg in 200 mls @ 16.667 mls/hr IVPB TITR [facility]; Protocol Last Admin: 11/29/17 19:19 Dose: 0.5 mg/min, 16.667 mls/hr Methimazole (Tapazole -) 10 mg PO BID [facility] Last Admin: 11/30/17 10:06 Dose: 10 mg Mupirocin (Bactroban Ointment (For Decolonization) -) 1 applic NS BID [facility] Stop: 12/02/17 21:59 Last Admin: 11/30/17 09:57 Dose: 1 applic Oxycodone HCl (Roxicodone -) 5 mg PO Q6H PRN PRN Reason: PAIN LEVEL 7 - 10 Pantoprazole Sodium (Protonix -) 40 mg PO DAILY [facility] Last Admin: 11/30/17 09:58 Dose: 40 mg Tramadol HCl (Ultram -) 50 mg PO Q8H PRN PRN Reason: PAIN LEVEL 4 - 6 Warfarin Sodium (Coumadin -) 1 mg PO DAILY@1800 [facility] Last Admin: 11/29/17 17:37 Dose: Not Given - Objective Vital Signs: Vital Signs Temperature 98 F 11/30/17 09:49 Pulse Rate 108 H 11/30/17 13:00 Respiratory Rate 20 11/30/17 13:00 Blood Pressure 103/65 11/30/17 13:00 O2 Sat by Pulse Oximetry (%) 96 11/29/17 21:00 Constitutional: Yes: Calm Eyes: Yes: Conjunctiva Clear HENT: Yes: Atraumatic Cardiovascular: Yes: S1, S2 Respiratory: Yes: CTA Bilaterally Gastrointestinal: Yes: Soft Genitourinary: Yes: Other (ileal conduit, nephrostomy tube) Musculoskeletal: Yes: WNL Edema: No Neurological: Yes: Oriented Psychiatric: Yes: Oriented Labs: CBC, BMP 11/30/17 05:30 11/30/17 05:30 INR, PTT INR 4.04 (0.83-1.09) H* 11/30/17 10:39 Problem List - Problems (1) Hydronephrosis Code(s): N13.30 - UNSPECIFIED HYDRONEPHROSIS (2) Sepsis Code(s): A41.9 - SEPSIS, UNSPECIFIED ORGANISM Qualifiers: Sepsis type: sepsis due to unspecified organism Qualified Code(s): A41.9 - Sepsis, unspecified organism (3) UTI (urinary tract infection) Code(s): N39.0 - URINARY TRACT INFECTION, SITE NOT SPECIFIED Qualifiers: Urinary tract infection type: acute cystitis Hematuria presence: with hematuria Qualified Code(s): N30.01 - Acute cystitis with hematuria (4) Renal dysfunction Code(s): N28.9 - DISORDER OF KIDNEY AND URETER, UNSPECIFIED Assessment/Plan Current Medications Generic Name Dose Route Start Last Admin Trade Name Freq PRN Reason Stop Dose Admin Acetaminophen 650 mg 11/29/17 13:53 Tylenol - PO Q4H PRN FEVER Acetaminophen 650 mg 11/29/17 13:53 Tylenol - PO Q4H PRN PAIN LEVEL 1 - 3 Aspirin 81 mg 11/30/17 10:00 11/30/17 09:57 Asa - PO 81 mg DAILY [facility] Administration Atorvastatin Calcium 40 mg 11/29/17 22:00 11/29/17 23:50 Lipitor - PO 40 mg HS [facility] Administration Chlorhexidine Gluconate 1 applic 11/27/17 22:00 11/30/17 00:05 Hibiclens For Decolonization - TP 1 applic HS [facility] Administration Clopidogrel Bisulfate 75 mg 11/30/17 10:00 11/30/17 09:57 Plavix - PO 75 mg DAILY [facility] Administration Hydrocortisone Sodium Succinate 100 mg 11/27/17 19:00 11/30/17 09:58 Solu-Cortef - IVPB 100 mg Q8H-IV [facility] Administration Norepinephrine Bitartrate 4, 500 mls @ 37.5 mls/hr 11/27/17 17:00 11/30/17 11 :00 000 mcg/ Dextrose IV 5 mcg/min TITR [facility] 37.5 mls/hr Titration Protocol 5 MCG/MIN Amiodarone HCl/Dextrose 360 mg in 200 mls @ 16.667 mls/hr 11/29/17 13:53 19:19 Nexterone 360 Mg/200 Ml Bag IVPB 0.5 mg/min TITR [facility] 16.667 mls/hr Administration Protocol 0.5 MG/MIN Methimazole 10 mg 11/29/17 22:00 11/30/17 10:06 Tapazole - PO 10 mg BID [facility] Administration Mupirocin 1 applic 11/27/17 22:00 11/30/17 09:57 Bactroban Ointment (For Decolonization) - NS 12/02/17 21:59 1 applic BID [facility] Administration Oxycodone HCl 5 mg 11/29/17 13:53 Roxicodone - PO Q6H PRN PAIN LEVEL 7 - 10 Pantoprazole Sodium 40 mg 11/30/17 10:00 11/30/17 09:58 Protonix - PO 40 mg DAILY [facility] Administration Tramadol HCl 50 mg 11/29/17 13:53 Ultram - PO Q8H PRN PAIN LEVEL 4 - 6 Warfarin Sodium 1 mg 11/29/17 18:00 11/29/17 17:37 Coumadin - PO Not Given DAILY@1800 [facility] Impression 1. CKD 2. altered mental status 3. a-fib 4. DM 5. HTN 6. hx bladder cancer 7. leukocytosis 8. sepsis 9. hyperkalemia 10. chon 11. rapid a-fib 12. hypotension Plan - monitor renal function - monitor output - pulse and pressure are improved - repeat labs in am - cardiology follow up - will follow Dr Baltazar
[2017-11-30] MEDS ORDERED: AMIODARONE HCL 200 MG TABLET (FP) PO SCH (13:45)
[2017-11-30] MEDS ORDERED: LACTATED RINGERS SOLUTION 1,000 ML/1,000 ML INFUS.BAG IV SCH (14:00)
--- NOTE | 2017-11-30 16:29 | PN ---
Physical Exam: SUBJECTIVE: Patient seen and examined at bedside this morning. No acute events overnight. Patient has no new complaints, denies chest pain, SOB, palpitations, abdominal pain. OBJECTIVE: Vital Signs Period Temp Pulse Resp BP Sys/Maynard Pulse Ox Last 24 Hr 98 F-98.6 F 99-117 19- 88-134/50-96 96 GENERAL: The patient is awake, alert, minimally verbally responsive, in no acute distress. HEAD: Normal with no signs of trauma. EYES: PERRLA, EOMI, sclera anicteric, conjunctiva clear. ENT: Ears normal, nares patent, dry mucous membranes. NECK: Trachea midline, full range of motion, supple. LUNGS: Breath sounds equal, clear to auscultation bilaterally. HEART: Tachycardic, irregularly irregular, S1, S2 without murmur, rub or gallop. ABDOMEN: Soft, nontender, nondistended, normoactive bowel sounds. EXTREMITIES: 1+ pulses, warm, well-perfused, no edema. SKIN: Warm, dry, normal turgor. Laboratory Results - last 24 hr 11/30/17 11/30/17 11/30/17 05:30 05:30 10:39 WBC 19.2 H RBC 3.91 L Hgb 10.5 L Hct 33.2 L MCV 85.0 MCH 27.0 MCHC 31.7 L RDW 20.0 H Plt Count 225 MPV 10.6 PT with INR 48.40 H INR 4.04 H* Sodium 133 L Potassium 4.0 Chloride 101 Carbon Dioxide 18 L Anion Gap 14 BUN 55 H Creatinine 1.4 H Creat Clearance w eGFR 50.25 Random Glucose 301 H* Calcium 9.9 Total Bilirubin 0.8 AST 25 ALT 78 H Alkaline Phosphatase 386 H Total Protein 5.5 L Albumin 1.6 L Active Medications Generic Name Dose Route Start Last Admin Trade Name Freq PRN Reason Stop Dose Admin Acetaminophen 650 mg 11/29/17 13:53 Tylenol - PO Q4H PRN FEVER Acetaminophen 650 mg 11/29/17 13:53 Tylenol - PO Q4H PRN PAIN LEVEL 1 - 3 Amiodarone HCl 500 mg 11/30/17 13:45 11/30/17 15:27 Cordarone - PO 500 mg BID [facility] Administration Aspirin 81 mg 11/30/17 10:00 11/30/17 09:57 Asa - PO 81 mg DAILY ANGELITA Administration Atorvastatin Calcium 40 mg 11/29/17 22:00 11/29/17 23:50 Lipitor - PO 40 mg HS ANGEL[facility] Administration Chlorhexidine Gluconate 1 applic 11/27/17 22:00 11/30/17 00:05 Hibiclens For Decolonization - TP 1 applic HS ANGELITA Administration Fludrocortisone Acetate 0.05 mg 12/01/17 10:00 Florinef - PO DAILY ANGELITA Hydrocortisone Sodium Succinate 50 mg 11/30/17 15:00 11/30/17 15:27 Solu-Cortef - IVPB 50 mg Q6H-IV ANGEL[facility] Administration Norepinephrine Bitartrate 4, 500 mls @ 37.5 mls/hr 11/27/17 17:00 11/30/17 14 :00 000 mcg/ Dextrose IV 4 mcg/min TITR ANG[facility] 30 mls/hr Titration Protocol 5 MCG/MIN Lactated Ringer's 1,000 ml in 1,000 mls @ 42 mls/hr 11/30/17 14:00 11/30/17 13:59 Lactated Ringers Solution IV 42 mls/hr ASDIR [facility] Administration Methimazole 10 mg 11/29/17 22:00 11/30/17 10:06 Tapazole - PO 10 mg BID ANG[facility] Administration Mupirocin 1 applic 11/27/17 22:00 11/30/17 09:57 Bactroban Ointment (For Decolonization) - NS 12/02/17 21:59 1 applic BID ANGEL[facility] Administration Oxycodone HCl 5 mg 11/29/17 13:53 Roxicodone - PO Q6H PRN PAIN LEVEL 7 - 10 Pantoprazole Sodium 40 mg 11/30/17 10:00 11/30/17 09:58 Protonix - PO 40 mg DAILY ANGEL[facility] Administration Tramadol HCl 50 mg 11/29/17 13:53 Ultram - PO Q8H PRN PAIN LEVEL 4 - 6 ASSESSMENT/PLAN: Patient is a 67 year old male with past medical history of 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 Initially BIBEMS from [facility] and admitted to ICU w/ septic shock 2/2 UTI. Stabilized and transferred to floors. Now re-admitted to ICU with episode of rapid afib and hypotension, non-reponsive to bolus, s/p cardioversion and amiodarone gtt initiation. #Cardiovascular 1)Hypotension 2/2 afib w/ RVR s/p cardioversion and amiodarone gtt, did not convert to sinus but now rate-controlled; Adrenal Insufficiency 2/2 adrenal gland mets -central line placed on floor -titrate pressors for MAP > 65 -CVP monitoring for intravascular status -Pt has severe CHF, use intravascular status to guide bolus vs diuresis -IV LR @42ml/hr started. Will monitor. -Levophed decreased to 5 mcg/min. -Amiodarone drip discontinued. -Started Amiodarone 400mg BID PO. -Continue Methimazole 10mg BID -Solu-cortef decreased to 50mg q6h. -Started Fludrocortisone 0.05mg daily. -INR elevated today at 4.04. Hold Warfarin for now. -will continue to monitor INR, to keep at 2-3. -Digoxin PRN for rate control -Plavix discontinued. 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 -Started Fludrocortisone 0.05mg daily. #Pulmonary -no active issues -saturating well on room air -Nebs PRN -Pulmonary Metastases -stable -CXR (11/05/17) confirmed pulmonary nodules, no acute pathology -CT Scan (11/05/17): shows multiple mets to liver, lungs, worsening hydronephrosis, suspicious for distal ureteral strictures at conduit, worsening L2-L4 bone metastases, new right adrenal metastases #Urology/Renal -s/p cystectomy and ileal conduit for Metastatic Bladder Ca -Urology following (Dr. Ruddy Mcguire). -Nephrology following. #F/E/N -IV LR @42ml/hr -Strict Is & Os -monitor electrolytes and replete as necessary -diabetic diet as tolerated #Prophylaxis 1)DVT -patient on Warfarin 2)GI -Protonix #Dispo -We will continue to follow the patient in the ICU. Thank you for this consultative opportunity. Visit type - Emergency Visit Emergency Visit: Yes ED Registration Date: 11/05/17 Care time: The patient presented to the Emergency Department on the above date and was hospitalized for further evaluation of their emergent condition. - New Patient This patient is new to me today: Yes Date on this admission: 11/30/17 - Critical Care Critical Care patient: No Total Critical Care Time (in minutes): 45 Critical Care Statement: The care of this patient involved high complexity decision making to prevent further life threatening deterioration of the patient 's condition and/or to evaluate & treat vital organ system(s) failure or risk of failure.
[2017-11-30] MEDS: AMIODARONE HCL 200 MG TABLET (FP) PO SCH (21:50)
[2017-11-30] MEDS: ATORVASTATIN CA 40 MG TABLET (FP) PO SCH (21:50)
[2017-12-01] MEDS: HYDROCORTISONE SOD SUCCINATE 100 MG/2 ML VIAL IVPB SCH ×4 (02:02→21:19)
[2017-12-01] MEDS ORDERED: ALBUTEROL SO4 2.5/IPRATROPIUM 0.5 INH SOL 3 ML VIAL.NEB. NEB ONE (04:18)
--- NOTE | 2017-12-01 04:18 | PN ---
Progress Note (short form) - Note Progress Note: Patient 02 sat dropped from 90's to 88% on 4L NC. Non-rebreather mask given and now saturating between 90%-92% Will order Nebulizer treatment If no improvement with treatment, will check ABG
[2017-12-01] MEDS ORDERED: PROPOFOL 1,000,000 MCG/100 ML VIAL ONE ×2 (04:35→04:37)
[2017-12-01] MEDS ORDERED: ETOMIDATE 20 MG/10 ML AMPUL IVPUSH ONE (04:35)
[2017-12-01] MEDS ORDERED: SUCCINYLCHOLINE CHLORIDE 200 MG/10 ML VIAL ONE (04:36)
[2017-12-01 06:04] LABS: ARTERIAL BLD GAS O2 SATURATION 96.8 % (90-98.9); ARTERIAL BLOOD GAS BASE EXCESS -7.7 meq/l (-2-2); ARTERIAL BLOOD GAS PCO2 27.2 mmHg (35-45); ARTERIAL BLOOD GAS pH 7.37 (7.35-7.45)
[2017-12-01 06:21] LABS: ALLENS TEST POSITIVE
[2017-12-01 06:35] LABS: BASO % 0.1 % (0-2.0); HEMATOCRIT 34.4 % (35.4-49); HEMOGLOBIN 10.6 GM/dL (11.7-16.9); LYMPH % 1.4 % (8-40); MCH 26.4 pg (25.7-33.7); MEAN CELL VOLUME 85.1 fl (80-96); MONO % 3.3 % (3.8-10.2); NEUT % 95.2 % (42.8-82.8); PLATELET COUNT 254 K/MM3 (134-434); RBC 4.04 M/mm3 (4.00-5.60); RDW 20.3 % (11.9-15.9); WHITE BLOOD COUNT 20.4 K/mm3 (4.0-10.0)
[2017-12-01 06:47] LABS: INR 3.66 (0.83-1.09); PROTHROMBIN TIME (PATIENT) 43.8 SEC (9.7-13.0)
[2017-12-01 07:33] LABS: ALBUMIN 1.6 g/dl (3.4-5.0); ALK PHOS 437 U/L (45-117); ANION GAP 14 MMOL/L (8-16); BLOOD UREA NITROGEN 58 mg/dL (7-18); CALCIUM 9.5 mg/dL (8.5-10.1); CHLORIDE 101 mmol/L (98-107); CO2 17 mmol/L (21-32); CREATININE 1.6 mg/dL (0.55-1.3); GLUCOSE,RANDOM 257 mg/dL (74-106); MAGNESIUM 1.9 mg/dL (1.8-2.4); PHOSPHOROUS 3.2 mg/dL (2.5-4.9); POTASSIUM 4.1 mmol/L (3.5-5.1); SGOT/AST 117 U/L (15-37); SGPT/ALT 100 U/L (13-61); SODIUM 132 mmol/L (136-145); TOT PROT 5.2 g/dl (6.4-8.2)
--- NOTE | 2017-12-01 07:47 | PN ---
Progress Note, Physician History of Present Illness: 67 y.o. M w/ PMHx. of A.Fib (on warfarin), sCHF, CAD, HTN, GERD, s/p cystectomy and ileal conduit for Metastatic Bladder Ca (Lungs, Liver, L2-L4 vertebrae and right adrenal gland), and recent (discharged 11/04/17) hospital admission for UTI( completed Amoxicillin for E.Coli and Enterrococcus Faecium) presents to the ED with hypotension, tachycardia and generalized weakness. EVENTS NOTED --ON BIPAP - Current Medication List Current Medications: Active Medications Acetaminophen (Tylenol -) 650 mg PO Q4H PRN PRN Reason: FEVER Acetaminophen (Tylenol -) 650 mg PO Q4H PRN PRN Reason: PAIN LEVEL 1 - 3 Amiodarone HCl (Cordarone -) 400 mg PO BID [facility] Last Admin: 11/30/17 21:50 Dose: 400 mg Aspirin (Asa -) 81 mg PO DAILY [facility] Last Admin: 11/30/17 09:57 Dose: 81 mg Atorvastatin Calcium (Lipitor -) 40 mg PO HS [facility] Last Admin: 11/30/17 21:50 Dose: 40 mg Chlorhexidine Gluconate (Hibiclens For Decolonization -) 1 applic TP HS [facility] Last Admin: 11/30/17 21:50 Dose: 1 applic Fludrocortisone Acetate (Florinef -) 0.05 mg PO DAILY [facility] Hydrocortisone Sodium Succinate (Solu-Cortef -) 50 mg IVPB Q6H-IV [facility] Last Admin: 12/01/17 02:02 Dose: 50 mg Norepinephrine Bitartrate 4, (000 mcg/ Dextrose) 500 mls @ 37.5 mls/hr IV TITR [facility]; Protocol Last Titration: 12/01/17 03:00 Dose: 10 mcg/min, 75 mls/hr Lactated Ringer's (Lactated Ringers Solution) 1,000 ml in 1,000 mls @ 42 mls/ hr IV ASDIR [facility] Last Admin: 11/30/17 13:59 Dose: 42 mls/hr Methimazole (Tapazole -) 10 mg PO BID [facility] Last Admin: 11/30/17 21:50 Dose: 10 mg Mupirocin (Bactroban Ointment (For Decolonization) -) 1 applic NS BID [facility] Stop: 12/02/17 21:59 Last Admin: 11/30/17 21:49 Dose: 1 applic Oxycodone HCl (Roxicodone -) 5 mg PO Q6H PRN PRN Reason: PAIN LEVEL 7 - 10 Pantoprazole Sodium (Protonix -) 40 mg PO DAILY [facility] Last Admin: 11/30/17 09:58 Dose: 40 mg Tramadol HCl (Ultram -) 50 mg PO Q8H PRN PRN Reason: PAIN LEVEL 4 - 6 - Objective Vital Signs: Vital Signs Temperature 98.6 F 12/01/17 06:00 Pulse Rate 112 H 12/01/17 06:00 Respiratory Rate 25 H 12/01/17 06:00 Blood Pressure 93/57 L 12/01/17 06:00 O2 Sat by Pulse Oximetry (%) 92 L 12/01/17 06:56 Cardiovascular: Yes: S1, S2 Respiratory: Yes: Other (BIPAP) Gastrointestinal: Yes: Soft, Ascites Labs: CBC, BMP 12/01/17 06:00 12/01/17 06:00 INR, PTT INR 3.66 (0.83-1.09) H 12/01/17 06:00 Problem List - Problems (1) Adrenal mass Code(s): E27.9 - DISORDER OF ADRENAL GLAND, UNSPECIFIED (2) Sepsis Code(s): A41.9 - SEPSIS, UNSPECIFIED ORGANISM Qualifiers: Sepsis type: sepsis due to unspecified organism Qualified Code(s): A41.9 - Sepsis, unspecified organism (3) Atrial fibrillation Code(s): I48.91 - UNSPECIFIED ATRIAL FIBRILLATION Qualifiers: Atrial fibrillation type: persistent Qualified Code(s): I48.1 - Persistent atrial fibrillation (4) CHF (congestive heart failure) Code(s): I50.9 - HEART FAILURE, UNSPECIFIED (5) 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 Code(s): C67.9 - MALIGNANT NEOPLASM OF BLADDER, UNSPECIFIED; C78.7 - SECONDARY MALIG NEOPLASM OF LIVER AND INTRAHEPATIC BILE DUCT (6) Diabetes Code(s): E11.9 - TYPE 2 DIABETES MELLITUS WITHOUT COMPLICATIONS Assessment/Plan - Problems (1) Respiratory Failure Assessment/Plan: -Bipap -Icu monitoring -Palliative care -Will d/w family (2) Hydronephrosis Assessment/Plan: -R hydronephrosis -s/p R percutaneous nephrostomy tube -nephrology and urology on board -diuretic renal scan to assess patency or right ureter, as there was no output from nephrostomy Code(s): N13.30 - UNSPECIFIED HYDRONEPHROSIS (3) Sepsis Assessment/Plan: -finished IV ABT -continue routine labs monitor CBC -pt afebrile, last lactic acid WNL Code(s): A41.9 - SEPSIS, UNSPECIFIED ORGANISM Qualifiers: Sepsis type: sepsis due to unspecified organism Qualified Code(s): A41.9 - Sepsis, unspecified organism (4) Anemia Assessment/Plan: -serial CBC x 5 to monitor H/H -stool occult negative -iron profile shows iron deficiency, B12 and Thyroid unremarkable -Venofer Infusion x 1 yesterday Code(s): D64.9 - ANEMIA, UNSPECIFIED (5) Atrial fibrillation with rapid ventricular response ON AMIODORONE TRIAL OF DIG CARDIO ON BOARD Code(s): I48.91 - UNSPECIFIED ATRIAL FIBRILLATION (6) 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 Code(s): C67.9 - MALIGNANT NEOPLASM OF BLADDER, UNSPECIFIED; C78.7 - SECONDARY MALIG NEOPLASM OF LIVER AND INTRAHEPATIC BILE DUCT (7) Diabetes Code(s): E11.9 - TYPE 2 DIABETES MELLITUS WITHOUT COMPLICATIONS
[2017-12-01 10:55] LABS: ANISOCYTOSIS 2+; MACROCYTOSIS 0; PLATELET ESTIMATE NORMAL
[2017-12-01] MEDS ORDERED: NOREPINEPHRINE BITARTRATE 4 MG/4 ML ML IV ONE ×3 (11:08→23:04)
[2017-12-01] MEDS: NOREPINEPHRINE BITARTRATE 4,000 MCG in DEXTROSE 5%-WATER - 496 ML IV SCH ×2 (11:23→18:32)
[2017-12-01] MEDS: ASPIRIN 81 MG CHEWABLE TABLETS PO SCH (12:18)
[2017-12-01] MEDS: MUPIROCIN 2% TOPICAL OINTMENT FOR DECOLONIZATION NS SCH ×2 (12:18→21:19)
[2017-12-01] MEDS: AMIODARONE HCL 200 MG TABLET (FP) PO SCH ×2 (12:18→21:19)
[2017-12-01] MEDS: FLUDROCORTISONE ACETATE 0.1 MG TABLET (FP) PO SCH (12:19)
[2017-12-01] MEDS: PANTOPRAZOLE 40 MG TABLET (FP) PO SCH (12:19)
[2017-12-01] MEDS: METHIMAZOLE 10 MG TABLET (FP) PO SCH ×2 (12:19→21:20)
--- NOTE | 2017-12-01 15:02 | PN ---
Teaching Attending Note Name of Resident: Gudelia Cortez ATTENDING PHYSICIAN STATEMENT I saw and evaluated the patient. I reviewed the resident's note and discussed the case with the resident. I agree with the resident's findings and plan as documented. SUBJECTIVE: Patient seen and examined in the ICU. Lethargic on NIPPV. Remains on NE drip for hemodynamic support. Intake & Output 11/28/17 11/29/17 11/30/17 12/01/17 23:59 23:59 23:59 23:59 Intake Total 2762.2 3166.8 2284.6 896 Output Total 1950 1650 650 450 Balance 812.2 1516.8 1634.6 446 Weight 173 lb 4.8 oz 176 lb 1 oz 172 lb 9 oz Last Vital Signs Temp Pulse Resp BP Pulse Ox 98.9 F 92 H 24 H 93/48 L 96 12/01/17 13:13 12/01/17 13:13 12/01/17 13:13 12/01/17 13:13 12/01/17 12:05 Active Medications Acetaminophen (Tylenol -) 650 mg PO Q4H PRN PRN Reason: FEVER Acetaminophen (Tylenol -) 650 mg PO Q4H PRN PRN Reason: PAIN LEVEL 1 - 3 Amiodarone HCl (Cordarone -) 400 mg PO BID [facility] Last Admin: 12/01/17 12:18 Dose: Not Given Aspirin (Asa -) 81 mg PO DAILY [facility] Last Admin: 12/01/17 12:18 Dose: Not Given Atorvastatin Calcium (Lipitor -) 40 mg PO HS [facility] Last Admin: 11/30/17 21:50 Dose: 40 mg Chlorhexidine Gluconate (Hibiclens For Decolonization -) 1 applic TP HS [facility] Last Admin: 11/30/17 21:50 Dose: 1 applic Fludrocortisone Acetate (Florinef -) 0.05 mg PO DAILY [facility] Last Admin: 12/01/17 12:19 Dose: Not Given Hydrocortisone Sodium Succinate (Solu-Cortef -) 50 mg IVPB Q6H-IV [facility] Last Admin: 12/01/17 09:53 Dose: 50 mg Norepinephrine Bitartrate 4, (000 mcg/ Dextrose) 500 mls @ 37.5 mls/hr IV TITR [facility]; Protocol Last Admin: 12/01/17 11:23 Dose: 10 mcg/min, 75 mls/hr Lactated Ringer's (Lactated Ringers Solution) 1,000 ml in 1,000 mls @ 42 mls/ hr IV ASDIR [facility] Last Admin: 11/30/17 13:59 Dose: 42 mls/hr Methimazole (Tapazole -) 10 mg PO BID [facility] Last Admin: 12/01/17 12:19 Dose: Not Given Morphine Sulfate (Morphine Sulfate) 2 mg IVPUSH Q4H PRN PRN Reason: PAIN LEVEL 7 - 10 Mupirocin (Bactroban Ointment (For Decolonization) -) 1 applic NS BID [facility] Stop: 12/02/17 21:59 Last Admin: 12/01/17 12:18 Dose: Not Given Oxycodone HCl (Roxicodone -) 5 mg PO Q6H PRN PRN Reason: PAIN LEVEL 7 - 10 Pantoprazole Sodium (Protonix -) 40 mg PO DAILY [facility] Last Admin: 12/01/17 12:19 Dose: Not Given Tramadol HCl (Ultram -) 50 mg PO Q8H PRN PRN Reason: PAIN LEVEL 4 - 6 Constitutional: Yes: Lethargic on NIPPV Eyes: Yes: WNL, Conjunctiva Clear HENT: Yes: WNL, Atraumatic, Normocephalic Neck: Yes: WNL, Supple, Trachea Midline Cardiovascular: Yes: Pulse Irregular Respiratory: Yes: Bilateral coarse rhonchi, on NIPPV Gastrointestinal: Yes: Other (Ileostomy) ...Rectal Exam: Yes: Deferred Renal/: Yes: Other (Nephrostomy) Breast(s): Yes: WNL Musculoskeletal: Yes: Muscle Weakness Extremities: Yes: WNL Edema: Yes Edema: LUE: Trace, RUE: Trace, LLE: 1+, RLE: 1+ Peripheral Pulses WNL: Yes Integumentary: Yes: WNL Wound/Incision: Yes: Clean/Dry Neurological: Yes: WNL ...Motor Strength: WNL Psychiatric: Yes: Other (Depressed) Labs: Laboratory Results - last 24 hr 12/01/17 12/01/17 12/01/17 05:15 06:00 06:00 WBC 20.4 H RBC 4.04 Hgb 10.6 L Hct 34.4 L MCV 85.1 MCH 26.4 MCHC 31.0 L RDW 20.3 H Plt Count 254 MPV 10.0 Absolute Neuts (auto) 19.4 H Neutrophils % 95.2 H Neutrophils % (Manual) 93.0 H Band Neutrophils % 2.0 Lymphocytes % 1.4 L D Lymphocytes % (Manual) 0.0 L Monocytes % 3.3 L Monocytes % (Manual) 5 Eosinophils % 0.0 Eosinophils % (Manual) 0.0 Basophils % 0.1 Basophils % (Manual) 0.0 Myelocytes % (Man) 0 D Promyelocytes % (Man) 0 Blast Cells % (Manual) 0 Nucleated RBC % 0 Metamyelocytes 0 Hypochromia 0 Platelet Estimate Normal Polychromasia 0 Poikilocytosis 0 Anisocytosis 2+ Microcytosis 2+ Macrocytosis 0 PT with INR 43.80 H INR 3.66 H Anticoagulation Therapy No Result Required. Puncture Site Right radial ABG pH 7.37 ABG pCO2 at Pt Temp 27.2 L ABG pO2 at Pt Temp 101.0 H ABG HCO3 15.4 L ABG O2 Sat (Measured) 96.8 ABG O2 Content 25.7 H ABG Base Excess -7.7 L Hayes Test Positive O2 Delivery Device Bipap Oxygen Flow Rate 100% Vent Mode No Result Required. Vent Rate No Result Required. Mechanical Rate No Result Required. Pressure Support Vent No Result Required. Sodium Potassium Chloride Carbon Dioxide Anion Gap BUN Creatinine Creat Clearance w eGFR Random Glucose Calcium Phosphorus Magnesium Total Bilirubin AST ALT Alkaline Phosphatase Total Protein Albumin 12/01/17 06:00 WBC RBC Hgb Hct MCV MCH MCHC RDW Plt Count MPV Absolute Neuts (auto) Neutrophils % Neutrophils % (Manual) Band Neutrophils % Lymphocytes % Lymphocytes % (Manual) Monocytes % Monocytes % (Manual) Eosinophils % Eosinophils % (Manual) Basophils % Basophils % (Manual) Myelocytes % (Man) Promyelocytes % (Man) Blast Cells % (Manual) Nucleated RBC % Metamyelocytes Hypochromia Platelet Estimate Polychromasia Poikilocytosis Anisocytosis Microcytosis Macrocytosis PT with INR INR Anticoagulation Therapy Puncture Site ABG pH ABG pCO2 at Pt Temp ABG pO2 at Pt Temp ABG HCO3 ABG O2 Sat (Measured) ABG O2 Content ABG Base Excess Hayes Test O2 Delivery Device Oxygen Flow Rate Vent Mode Vent Rate Mechanical Rate Pressure Support Vent Sodium 132 L Potassium 4.1 Chloride 101 Carbon Dioxide 17 L Anion Gap 14 BUN 58 H Creatinine 1.6 H Creat Clearance w eGFR 43.07 Random Glucose 257 H Calcium 9.5 Phosphorus 3.2 Magnesium 1.9 Total Bilirubin 1.0 AST 117 H ALT 100 H Alkaline Phosphatase 437 H Total Protein 5.2 L Albumin 1.6 L Problem List - Problems (1) HEYDI (acute kidney injury) Code(s): N17.9 - ACUTE KIDNEY FAILURE, UNSPECIFIED (2) Adrenal mass Code(s): E27.9 - DISORDER OF ADRENAL GLAND, UNSPECIFIED (3) Hyperthyroidism Code(s): E05.90 - THYROTOXICOSIS, UNSP WITHOUT THYROTOXIC CRISIS OR STORM (4) Tachycardia Code(s): R00.0 - TACHYCARDIA, UNSPECIFIED (5) Atrial fibrillation Code(s): I48.91 - UNSPECIFIED ATRIAL FIBRILLATION Qualifiers: Atrial fibrillation type: persistent Qualified Code(s): I48.1 - Persistent atrial fibrillation (6) Atrial fibrillation with rapid ventricular response Code(s): I48.91 - UNSPECIFIED ATRIAL FIBRILLATION (7) 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 (8) CHF (congestive heart failure) Code(s): I50.9 - HEART FAILURE, UNSPECIFIED (9) Cardiomyopathy Code(s): I42.9 - CARDIOMYOPATHY, UNSPECIFIED Qualifiers: Cardiomyopathy type: ischemic Qualified Code(s): I25.5 - Ischemic cardiomyopathy (10) Chronic anticoagulation Code(s): Z79.01 - [employer] (CURRENT) USE OF ANTICOAGULANTS (11) Chronic systolic (congestive) heart failure Code(s): I50.22 - CHRONIC SYSTOLIC (CONGESTIVE) HEART FAILURE (12) Diabetes Code(s): E11.9 - TYPE 2 DIABETES MELLITUS WITHOUT COMPLICATIONS Assessment/Plan -Septic Shock / suspect component of Adrenal failure -Recurrent A-Fib w/ RVR -CKD -CHF -CAD -End Stage PLAN: -Amiodarone -Digoxin PRN -NIPPV support -BD TX PRN -Strict I's & O's -Monitor UOP -Replete e-lytes prn -Monitor off plavix -Follow INR -Follow LFTs -Solu-Cortef: 50mg Q6h -Methimazole -Fludrocortisone -PPI -Will need further GOC discussions given overall grave prognosis Dr Varma Critical Care Time/MDM Note Total Critical Care Time: 39 Critical Care Statement: The care of this patient involved high complexity decision making to prevent further life threatening deterioration of the patient 's condition and/or to evaluate & treat vital organ system(s) failure or risk of failure.
--- NOTE | 2017-12-01 15:05 | PN ---
Progress Note, Physician History of Present Illness: Pt seen and examined at bedside. He is now hypoxic and on on bipap. Pt is lethargic. - Current Medication List Current Medications: Active Medications Acetaminophen (Tylenol -) 650 mg PO Q4H PRN PRN Reason: FEVER Acetaminophen (Tylenol -) 650 mg PO Q4H PRN PRN Reason: PAIN LEVEL 1 - 3 Amiodarone HCl (Cordarone -) 400 mg PO BID [facility] Last Admin: 12/01/17 12:18 Dose: Not Given Aspirin (Asa -) 81 mg PO DAILY [facility] Last Admin: 12/01/17 12:18 Dose: Not Given Atorvastatin Calcium (Lipitor -) 40 mg PO HS [facility] Last Admin: 11/30/17 21:50 Dose: 40 mg Chlorhexidine Gluconate (Hibiclens For Decolonization -) 1 applic TP HS [facility] Last Admin: 11/30/17 21:50 Dose: 1 applic Fludrocortisone Acetate (Florinef -) 0.05 mg PO DAILY [facility] Last Admin: 12/01/17 12:19 Dose: Not Given Hydrocortisone Sodium Succinate (Solu-Cortef -) 50 mg IVPB Q6H-IV [facility] Last Admin: 12/01/17 09:53 Dose: 50 mg Norepinephrine Bitartrate 4, (000 mcg/ Dextrose) 500 mls @ 37.5 mls/hr IV TITR [facility]; Protocol Last Admin: 12/01/17 11:23 Dose: 10 mcg/min, 75 mls/hr Lactated Ringer's (Lactated Ringers Solution) 1,000 ml in 1,000 mls @ 42 mls/ hr IV ASDIR [facility] Last Admin: 11/30/17 13:59 Dose: 42 mls/hr Methimazole (Tapazole -) 10 mg PO BID [facility] Last Admin: 12/01/17 12:19 Dose: Not Given Morphine Sulfate (Morphine Sulfate) 2 mg IVPUSH Q4H PRN PRN Reason: PAIN LEVEL 7 - 10 Mupirocin (Bactroban Ointment (For Decolonization) -) 1 applic NS BID [facility] Stop: 12/02/17 21:59 Last Admin: 12/01/17 12:18 Dose: Not Given Oxycodone HCl (Roxicodone -) 5 mg PO Q6H PRN PRN Reason: PAIN LEVEL 7 - 10 Pantoprazole Sodium (Protonix -) 40 mg PO DAILY [facility] Last Admin: 12/01/17 12:19 Dose: Not Given Tramadol HCl (Ultram -) 50 mg PO Q8H PRN PRN Reason: PAIN LEVEL 4 - 6 - Objective Vital Signs: Vital Signs Temperature 98.9 F 12/01/17 13:13 Pulse Rate 92 H 12/01/17 13:13 Respiratory Rate 24 H 12/01/17 13:13 Blood Pressure 93/48 L 12/01/17 13:13 O2 Sat by Pulse Oximetry (%) 96 12/01/17 12:05 Constitutional: Yes: Calm Eyes: Yes: Conjunctiva Clear HENT: Yes: Atraumatic Cardiovascular: Yes: S1, S2 Respiratory: Yes: On BiPap Gastrointestinal: Yes: Soft Genitourinary: Yes: Salas Present, Other (nephrostomy tube) Edema: No Neurological: Yes: Lethargy Labs: CBC, BMP 12/01/17 06:00 12/01/17 06:00 INR, PTT INR 3.66 (0.83-1.09) H 12/01/17 06:00 - ....Imaging Chest X-ray: Report Reviewed Problem List - Problems (1) Hydronephrosis Code(s): N13.30 - UNSPECIFIED HYDRONEPHROSIS (2) Sepsis Code(s): A41.9 - SEPSIS, UNSPECIFIED ORGANISM Qualifiers: Qualified Code(s): A41.9 - Sepsis, unspecified organism (3) UTI (urinary tract infection) Code(s): N39.0 - URINARY TRACT INFECTION, SITE NOT SPECIFIED Qualifiers: Qualified Code(s): N30.01 - Acute cystitis with hematuria (4) Renal dysfunction Code(s): N28.9 - DISORDER OF KIDNEY AND URETER, UNSPECIFIED Assessment/Plan Current Medications Generic Name Dose Route Start Last Admin Trade Name Freq PRN Reason Stop Dose Admin Acetaminophen 650 mg 11/29/17 13:53 Tylenol - PO Q4H PRN FEVER Acetaminophen 650 mg 11/29/17 13:53 Tylenol - PO Q4H PRN PAIN LEVEL 1 - 3 Amiodarone HCl 400 mg 11/30/17 22:00 12/01/17 12:18 Cordarone - PO Not Given BID [facility] Aspirin 81 mg 11/30/17 10:00 12/01/17 12:18 Asa - PO Not Given DAILY [facility] Atorvastatin Calcium 40 mg 11/29/17 22:00 11/30/17 21:50 Lipitor - PO 40 mg HS [facility] Administration Chlorhexidine Gluconate 1 applic 11/27/17 22:00 11/30/17 21:50 Hibiclens For Decolonization - TP 1 applic HS [facility] Administration Fludrocortisone Acetate 0.05 mg 12/01/17 10:00 12/01/17 12:19 Florinef - PO Not Given DAILY [facility] Hydrocortisone Sodium Succinate 50 mg 11/30/17 15:00 12/01/17 09:53 Solu-Cortef - IVPB 50 mg Q6H-IV [facility] Administration Norepinephrine Bitartrate 4, 500 mls @ 37.5 mls/hr 11/27/17 17:00 12/01/17 11 :23 000 mcg/ Dextrose IV 10 mcg/min TITR [facility] 75 mls/hr Administration Protocol 5 MCG/MIN Lactated Ringer's 1,000 ml in 1,000 mls @ 42 mls/hr 11/30/17 14:00 11/30/17 13:59 Lactated Ringers Solution IV 42 mls/hr ASDIR [facility] Administration Methimazole 10 mg 11/29/17 22:00 12/01/17 12:19 Tapazole - PO Not Given BID [facility] Morphine Sulfate 2 mg 12/01/17 11:32 Morphine Sulfate IVPUSH Q4H PRN PAIN LEVEL 7 - 10 Mupirocin 1 applic 11/27/17 22:00 12/01/17 12:18 Bactroban Ointment (For Decolonization) - NS 12/02/17 21:59 Not Given BID [facility] Oxycodone HCl 5 mg 11/29/17 13:53 Roxicodone - PO Q6H PRN PAIN LEVEL 7 - 10 Pantoprazole Sodium 40 mg 11/30/17 10:00 12/01/17 12:19 Protonix - PO Not Given DAILY [facility] Tramadol HCl 50 mg 11/29/17 13:53 Ultram - PO Q8H PRN PAIN LEVEL 4 - 6 Impression 1. CKD 2. altered mental status 3. a-fib 4. DM 5. HTN 6. hx bladder cancer 7. leukocytosis 8. sepsis 9. hyperkalemia 10. chon 11. rapid a-fib 12. hypotension 13. resp failure requiring bipap Plan - renal function is worsening - cont bipap - hold fluids - monitor pulse ox - monitor urine output - will need to discuss GOC - will follow Dr Baltazar
--- NOTE | 2017-12-01 17:56 | PN ---
Physical Exam: SUBJECTIVE: Patient seen and examined at bedside this morning. Patient decompensated overnight with O2 saturation at 60-70s. Non-rebreather mask was tried, did not improve saturation. Anesthesia called for intubation, but patient improved on the bag-mask valve. He was then put on bipap and remained saturating at the 90s. OBJECTIVE: Vital Signs Period Temp Pulse Resp BP Sys/Maynard Pulse Ox Last 24 Hr 98.2 F-98.9 F 92-114 16-29 73-103/34-63 92-97 GENERAL: The patient is awake, alert, on bipap. HEAD: Normal with no signs of trauma. EYES: PERRLA, EOMI, sclera anicteric, conjunctiva clear. ENT: Ears normal, nares patent, dry mucous membranes. NECK: Trachea midline, full range of motion, supple. LUNGS: +Coarse breath sounds bilaterally HEART: Tachycardic, irregularly irregular, S1, S2 without murmur, rub or gallop. ABDOMEN: Soft, +LUQ tenderness, nondistended, normoactive bowel sounds. EXTREMITIES: 1+ pulses, warm, well-perfused, no edema. SKIN: Warm, dry, normal turgor. Laboratory Results - last 24 hr 12/01/17 12/01/17 12/01/17 05:15 06:00 06:00 WBC 20.4 H RBC 4.04 Hgb 10.6 L Hct 34.4 L MCV 85.1 MCH 26.4 MCHC 31.0 L RDW 20.3 H Plt Count 254 MPV 10.0 Absolute Neuts (auto) 19.4 H Neutrophils % 95.2 H Neutrophils % (Manual) 93.0 H Band Neutrophils % 2.0 Lymphocytes % 1.4 L D Lymphocytes % (Manual) 0.0 L Monocytes % 3.3 L Monocytes % (Manual) 5 Eosinophils % 0.0 Eosinophils % (Manual) 0.0 Basophils % 0.1 Basophils % (Manual) 0.0 Myelocytes % (Man) 0 D Promyelocytes % (Man) 0 Blast Cells % (Manual) 0 Nucleated RBC % 0 Metamyelocytes 0 Hypochromia 0 Platelet Estimate Normal Polychromasia 0 Poikilocytosis 0 Anisocytosis 2+ Microcytosis 2+ Macrocytosis 0 PT with INR 43.80 H INR 3.66 H Anticoagulation Therapy No Result Required. Puncture Site Right radial ABG pH 7.37 ABG pCO2 at Pt Temp 27.2 L ABG pO2 at Pt Temp 101.0 H ABG HCO3 15.4 L ABG O2 Sat (Measured) 96.8 ABG O2 Content 25.7 H ABG Base Excess -7.7 L Hayes Test Positive O2 Delivery Device Bipap Oxygen Flow Rate 100% Vent Mode No Result Required. Vent Rate No Result Required. Mechanical Rate No Result Required. Pressure Support Vent No Result Required. Sodium Potassium Chloride Carbon Dioxide Anion Gap BUN Creatinine Creat Clearance w eGFR Random Glucose Calcium Phosphorus Magnesium Total Bilirubin AST ALT Alkaline Phosphatase Total Protein Albumin 12/01/17 06:00 WBC RBC Hgb Hct MCV MCH MCHC RDW Plt Count MPV Absolute Neuts (auto) Neutrophils % Neutrophils % (Manual) Band Neutrophils % Lymphocytes % Lymphocytes % (Manual) Monocytes % Monocytes % (Manual) Eosinophils % Eosinophils % (Manual) Basophils % Basophils % (Manual) Myelocytes % (Man) Promyelocytes % (Man) Blast Cells % (Manual) Nucleated RBC % Metamyelocytes Hypochromia Platelet Estimate Polychromasia Poikilocytosis Anisocytosis Microcytosis Macrocytosis PT with INR INR Anticoagulation Therapy Puncture Site ABG pH ABG pCO2 at Pt Temp ABG pO2 at Pt Temp ABG HCO3 ABG O2 Sat (Measured) ABG O2 Content ABG Base Excess Hayes Test O2 Delivery Device Oxygen Flow Rate Vent Mode Vent Rate Mechanical Rate Pressure Support Vent Sodium 132 L Potassium 4.1 Chloride 101 Carbon Dioxide 17 L Anion Gap 14 BUN 58 H Creatinine 1.6 H Creat Clearance w eGFR 43.07 Random Glucose 257 H Calcium 9.5 Phosphorus 3.2 Magnesium 1.9 Total Bilirubin 1.0 AST 117 H ALT 100 H Alkaline Phosphatase 437 H Total Protein 5.2 L Albumin 1.6 L Active Medications Generic Name Dose Route Start Last Admin Trade Name Freq PRN Reason Stop Dose Admin Acetaminophen 650 mg 11/29/17 13:53 Tylenol - PO Q4H PRN FEVER Acetaminophen 650 mg 11/29/17 13:53 Tylenol - PO Q4H PRN PAIN LEVEL 1 - 3 Amiodarone HCl 400 mg 11/30/17 22:00 12/01/17 12:18 Cordarone - PO Not Given BID [facility] Aspirin 81 mg 11/30/17 10:00 12/01/17 12:18 Asa - PO Not Given DAILY [facility] Atorvastatin Calcium 40 mg 11/29/17 22:00 11/30/17 21:50 Lipitor - PO 40 mg HS ANGELITA Administration Chlorhexidine Gluconate 1 applic 11/27/17 22:00 11/30/17 21:50 Hibiclens For Decolonization - TP 1 applic HS ANGELITA Administration Fludrocortisone Acetate 0.05 mg 12/01/17 10:00 12/01/17 12:19 Florinef - PO Not Given DAILY ANGELITA Hydrocortisone Sodium Succinate 50 mg 11/30/17 15:00 12/01/17 15:30 Solu-Cortef - IVPB 50 mg Q6H-IV ANGELITA Administration Norepinephrine Bitartrate 4, 500 mls @ 37.5 mls/hr 11/27/17 17:00 12/01/17 11 :23 000 mcg/ Dextrose IV 10 mcg/min TITR ANGELITA 75 mls/hr Administration Protocol 5 MCG/MIN Methimazole 10 mg 11/29/17 22:00 12/01/17 12:19 Tapazole - PO Not Given BID [facility] Morphine Sulfate 2 mg 12/01/17 11:32 Morphine Sulfate IVPUSH Q4H PRN PAIN LEVEL 7 - 10 Mupirocin 1 applic 11/27/17 22:00 12/01/17 12:18 Bactroban Ointment (For Decolonization) - NS 12/02/17 21:59 Not Given BID [facility] Oxycodone HCl 5 mg 11/29/17 13:53 Roxicodone - PO Q6H PRN PAIN LEVEL 7 - 10 Pantoprazole Sodium 40 mg 11/30/17 10:00 12/01/17 12:19 Protonix - PO Not Given DAILY [facility] Tramadol HCl 50 mg 11/29/17 13:53 Ultram - PO Q8H PRN PAIN LEVEL 4 - 6 ASSESSMENT/PLAN: Patient is a 67 year old male with past medical history of 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 Initially BIBEMS from [facility] and admitted to ICU w/ septic shock 2/2 UTI. Stabilized and transferred to floors. Now re-admitted to ICU with episode of rapid afib and hypotension, non-reponsive to bolus, s/p cardioversion and amiodarone gtt initiation. 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 -Levophed decreased to 5 mcg/min. -Amiodarone drip discontinued. -Started Amiodarone 400mg BID PO. -Continue Methimazole 10mg BID -Solu-cortef decreased to 50mg q6h. -Started Fludrocortisone 0.05mg daily. -INR 3.6. Hold Warfarin for now. -will continue to monitor INR, to keep at 2-3. -Digoxin PRN for rate control -Plavix discontinued. 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 -Started Fludrocortisone 0.05mg daily. #Pulmonary 1)Acute on chronic hypoxic respiratory failure -patient desaturated overnight to 60s-70s -initially placed on nonrebreather mask, with no improvement -Bag-mask valve increased saturation, patient stabilized on bipap. -Nebs PRN 2)Pulmonary Metastases -CXR (12/01/17): bilateral diffuse lung nodules, metastatic lesions. -CT Scan (11/05/17): shows multiple mets to liver, lungs, worsening hydronephrosis, suspicious for distal ureteral strictures at conduit, worsening L2-L4 bone metastases, new right adrenal metastases #Urology/Renal -s/p cystectomy and ileal conduit for Metastatic Bladder Ca -Urology following (Dr. Ruddy cMguire). -Nephrology following (Dr. Baltazar). #F/E/N -not on any standing fluids -Strict Is & Os -monitor electrolytes and replete as necessary -NPO #Prophylaxis 1)DVT -patient on Warfarin 2)GI -Protonix #Dispo -We will continue to follow the patient in the ICU. Thank you for this consultative opportunity. Visit type - Emergency Visit Emergency Visit: Yes ED Registration Date: 11/05/17 Care time: The patient presented to the Emergency Department on the above date and was hospitalized for further evaluation of their emergent condition. - New Patient This patient is new to me today: Yes Date on this admission: 12/01/17 - Critical Care Critical Care patient: Yes Total Critical Care Time (in minutes): 45 Critical Care Statement: The care of this patient involved high complexity decision making to prevent further life threatening deterioration of the patient 's condition and/or to evaluate & treat vital organ system(s) failure or risk of failure.
--- NOTE | 2017-12-01 20:38 | PN ---
Progress Note (short form) - Note Progress Note: Notified by RN that patient is having Tachycardia in the 120's Chart reviewed and patient did not receive amio doses today due to NPO because of BIPAP Patient currently drowsy and lethargic NPO order placed Digoxin 0.25mg IVP ordered
[2017-12-01] MEDS ORDERED: DIGOXIN 0.5 MG/2 ML AMPUL IVPUSH ONE (20:45)
[2017-12-01] MEDS: MORPHINE SULFATE 2 MG/ML VIAL IVPUSH PRN (21:17)
[2017-12-01] MEDS: ATORVASTATIN CA 40 MG TABLET (FP) PO SCH (21:19)
[2017-12-01] MEDS: CHLORHEXIDINE GLUCONATE 4% CLEANSER FOR DECOLONIZATION TP SCH (22:18)
--- NOTE | 2017-12-01 22:29 | PN ---
Progress Note, Physician Chief Complaint: Pt is on BiPAP; lethargic. History of Present Illness: The patient is a 67 year old male (b. 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 As per EMS the patients systolic was noted to be in the 60s and they placed a PIV and started a liter of NS prior to arrival in the emergency department. The patient denies chest pain, shortness of breath, headache and dizziness. Denies fever, chills, nausea, vomit, diarrhea and constipation. Denies dysuria, frequency, urgency and hematuria. - Current Medication List Current Medications: Active Medications Acetaminophen (Tylenol -) 650 mg PO Q4H PRN PRN Reason: FEVER Acetaminophen (Tylenol -) 650 mg PO Q4H PRN PRN Reason: PAIN LEVEL 1 - 3 Amiodarone HCl (Cordarone -) 400 mg PO BID [facility] Last Admin: 12/01/17 21:19 Dose: Not Given Aspirin (Asa -) 81 mg PO DAILY [facility] Last Admin: 12/01/17 12:18 Dose: Not Given Atorvastatin Calcium (Lipitor -) 40 mg PO HS [facility] Last Admin: 12/01/17 21:19 Dose: Not Given Chlorhexidine Gluconate (Hibiclens For Decolonization -) 1 applic TP HS [facility] Last Admin: 12/01/17 22:18 Dose: 1 applic Fludrocortisone Acetate (Florinef -) 0.05 mg PO DAILY [facility] Last Admin: 12/01/17 12:19 Dose: Not Given Hydrocortisone Sodium Succinate (Solu-Cortef -) 50 mg IVPB Q6H-IV [facility] Last Admin: 12/01/17 21:19 Dose: 50 mg Norepinephrine Bitartrate 4, (000 mcg/ Dextrose) 500 mls @ 37.5 mls/hr IV TITR [facility]; Protocol Last Admin: 12/01/17 18:32 Dose: 10 mcg/min, 75 mls/hr Methimazole (Tapazole -) 10 mg PO BID [facility] Last Admin: 12/01/17 21:20 Dose: Not Given Morphine Sulfate (Morphine Sulfate) 2 mg IVPUSH Q4H PRN PRN Reason: PAIN LEVEL 7 - 10 Last Admin: 12/01/17 21:17 Dose: 2 mg Mupirocin (Bactroban Ointment (For Decolonization) -) 1 applic NS BID [facility] Stop: 12/02/17 21:59 Last Admin: 12/01/17 21:19 Dose: 1 applic Oxycodone HCl (Roxicodone -) 5 mg PO Q6H PRN PRN Reason: PAIN LEVEL 7 - 10 Pantoprazole Sodium (Protonix -) 40 mg PO DAILY [facility] Last Admin: 12/01/17 12:19 Dose: Not Given Tramadol HCl (Ultram -) 50 mg PO Q8H PRN PRN Reason: PAIN LEVEL 4 - 6 - Objective Vital Signs: Vital Signs Temperature 97.5 F L 12/01/17 20:00 Pulse Rate 107 H 12/01/17 21:00 Respiratory Rate 29 H 12/01/17 21:00 Blood Pressure 92/65 12/01/17 21:00 O2 Sat by Pulse Oximetry (%) 93 L 12/01/17 21:00 Constitutional: Yes: Other (pt, previously always brief with answers but responsive, now is more lethargic, not following commands) Eyes: Yes: WNL HENT: Yes: Hoarseness Neck: Yes: Decreased ROM Cardiovascular: Yes: Tachycardia, Pulse Irregular, S1 (varies in intensity) Respiratory: Yes: Diminished Gastrointestinal: Yes: Soft Genitourinary: No: Anuria Musculoskeletal: Yes: Muscle Weakness Extremities: Yes: Cool Edema: No Peripheral Pulses WNL: No Peripheral Pulses: Left Doralis Pedis: 1+, Right Dorsalis Pedis: 1+ Integumentary: Yes: Other Neurological: Yes: Lethargy, Weakness Psychiatric: Yes: Other Labs: CBC, BMP 12/01/17 06:00 12/01/17 06:00 INR, PTT INR 3.66 (0.83-1.09) H 12/01/17 06:00 Abnormal Lab Results 12/01/17 12/01/17 12/01/17 05:15 06:00 06:00 WBC 20.4 H Hgb 10.6 L Hct 34.4 L MCHC 31.0 L RDW 20.3 H Absolute Neuts (auto) 19.4 H Neutrophils % 95.2 H Neutrophils % (Manual) 93.0 H Lymphocytes % 1.4 L D Lymphocytes % (Manual) 0.0 L Monocytes % 3.3 L PT with INR 43.80 H INR 3.66 H ABG pCO2 at Pt Temp 27.2 L ABG pO2 at Pt Temp 101.0 H ABG HCO3 15.4 L ABG O2 Content 25.7 H ABG Base Excess -7.7 L Sodium Carbon Dioxide BUN Creatinine Random Glucose AST ALT Alkaline Phosphatase Total Protein Albumin 12/01/17 06:00 WBC Hgb Hct MCHC RDW Absolute Neuts (auto) Neutrophils % Neutrophils % (Manual) Lymphocytes % Lymphocytes % (Manual) Monocytes % PT with INR INR ABG pCO2 at Pt Temp ABG pO2 at Pt Temp ABG HCO3 ABG O2 Content ABG Base Excess Sodium 132 L Carbon Dioxide 17 L BUN 58 H Creatinine 1.6 H Random Glucose 257 H AST 117 H ALT 100 H Alkaline Phosphatase 437 H Total Protein 5.2 L Albumin 1.6 L - ....Imaging Other: Image Reviewed (telemetry: AF with periods of RVR) Problem List - Problems (1) Atrial fibrillation with rapid ventricular response Assessment/Plan: Telemetry: AF with RVR. On amiodarone (IV changed to PO). If digoxin is thought necessary, will keep in mind interaction with amiodarone. INR supratherapeutic despite being off anticoagulant for more than a week. Code(s): I48.91 - UNSPECIFIED ATRIAL FIBRILLATION (2) 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 Assessment/Plan: s/p percutaneous nephrostomy tube. f/u with oncologist, . Would recommend conservative management for cardiac issues, in view of multi- organ and bone metastases with liver dysfunction; pt also appears to be disoriented and demented. Consider palliative Rx. Code(s): C67.9 - MALIGNANT NEOPLASM OF BLADDER, UNSPECIFIED; C78.00 - SECONDARY MALIGNANT NEOPLASM OF UNSPECIFIED LUNG (3) Hyperlipidemia Code(s): E78.5 - HYPERLIPIDEMIA, UNSPECIFIED Qualifiers: Hyperlipidemia type: pure hypercholesterolemia Qualified Code(s): E78.00 - Pure hypercholesterolemia, unspecified; E78.0 - Pure hypercholesterolemia (4) S/P coronary artery stent placement Code(s): Z95.5 - PRESENCE OF CORONARY ANGIOPLASTY IMPLANT AND GRAFT (5) Supratherapeutic INR Assessment/Plan: Metatstatic CA noted in liver a likely strong contributor to derangement in coagulation; INR remains suprtherapeutic off anticoagulants Elevated LFTs. Code(s): R79.1 - ABNORMAL COAGULATION PROFILE (6) Septic shock Assessment/Plan: On norepinephrine, which had to be increased early am when BP plumeted. Cautious use of fluids, given poor LVEF. On amiodarone for HR control (AF). CCU time spent evaluating pt and formulating plan: 35 minutes. Code(s): A41.9 - SEPSIS, UNSPECIFIED ORGANISM; R65.21 - SEVERE SEPSIS WITH SEPTIC SHOCK (7) Acute on chronic systolic (congestive) heart failure Assessment/Plan: on amiodarone. Cautious use of fluids, given poor LVEF. Presently unable to wean off norepinephrine. F/u BUN/Cr, electrolytes, Is and Os, daily weight. Code(s): I50.23 - ACUTE ON CHRONIC SYSTOLIC (CONGESTIVE) HEART FAILURE
[2017-12-02] MEDS: NOREPINEPHRINE BITARTRATE 4,000 MCG in DEXTROSE 5%-WATER - 496 ML IV SCH ×5 (01:00→17:52)
[2017-12-02] MEDS: HYDROCORTISONE SOD SUCCINATE 100 MG/2 ML VIAL IVPB SCH ×3 (03:45→17:24)
[2017-12-02 05:56] LABS: HEMATOCRIT 35.4 % (35.4-49); MCH 26.5 pg (25.7-33.7); MEAN CELL VOLUME 85.4 fl (80-96); MEAN PLT VOLUME 10.6 fl (7.5-11.1); PLATELET COUNT 236 K/MM3 (134-434); RBC 4.14 M/mm3 (4.00-5.60); RDW 19.9 % (11.9-15.9); WHITE BLOOD COUNT 23.8 K/mm3 (4.0-10.0)
[2017-12-02 06:10] LABS: INR 3.04 (0.83-1.09); PROTHROMBIN TIME (PATIENT) 36.3 SEC (9.7-13.0)
[2017-12-02 06:38] LABS: ALBUMIN 1.6 g/dl (3.4-5.0); ALK PHOS 472 U/L (45-117); ANION GAP 15 MMOL/L (8-16); BILIRUBIN,TOTAL 1.2 mg/dL (0.2-1); BLOOD UREA NITROGEN 64 mg/dL (7-18); CALCIUM 9.5 mg/dL (8.5-10.1); CHLORIDE 96 mmol/L (98-107); CO2 16 mmol/L (21-32); CREATININE 2.2 mg/dL (0.55-1.3); MAGNESIUM 1.9 mg/dL (1.8-2.4); POTASSIUM 4.4 mmol/L (3.5-5.1); SGOT/AST 56 U/L (15-37); SGPT/ALT 103 U/L (13-61); SODIUM 128 mmol/L (136-145); TOT PROT 5.3 g/dl (6.4-8.2)
[2017-12-02 06:41] LABS: GLUCOSE,RANDOM 395 mg/dL (74-106)
[2017-12-02] MEDS ORDERED: INSULIN (NOVOLOG) ASPART 100 UNITS/ML 10ML VIAL SQ ONE (06:43)
[2017-12-02] MEDS: INSULIN SLIDING SCALE (NOVOLOG) 1 VIAL SQ SCH ×3 (07:36→17:20)
--- NOTE | 2017-12-02 07:57 | PN ---
Progress Note, Physician - Current Medication List Current Medications: Active Medications Acetaminophen (Tylenol -) 650 mg PO Q4H PRN PRN Reason: FEVER Acetaminophen (Tylenol -) 650 mg PO Q4H PRN PRN Reason: PAIN LEVEL 1 - 3 Amiodarone HCl (Cordarone -) 400 mg PO BID [facility] Last Admin: 12/01/17 21:19 Dose: Not Given Aspirin (Asa -) 81 mg PO DAILY [facility] Last Admin: 12/01/17 12:18 Dose: Not Given Atorvastatin Calcium (Lipitor -) 40 mg PO HS [facility] Last Admin: 12/01/17 21:19 Dose: Not Given Chlorhexidine Gluconate (Hibiclens For Decolonization -) 1 applic TP HS [facility] Last Admin: 12/01/17 22:18 Dose: 1 applic Fludrocortisone Acetate (Florinef -) 0.05 mg PO DAILY [facility] Last Admin: 12/01/17 12:19 Dose: Not Given Hydrocortisone Sodium Succinate (Solu-Cortef -) 50 mg IVPB Q6H-IV [facility] Last Admin: 12/02/17 03:45 Dose: 50 mg Norepinephrine Bitartrate 4, (000 mcg/ Dextrose) 500 mls @ 37.5 mls/hr IV TITR [facility]; Protocol Last Titration: 12/02/17 03:00 Dose: 20 mcg/min, 150 mls/hr Insulin Aspart (Novolog Vial Sliding Scale -) 1 vial SQ ACHS [facility]; Protocol Last Admin: 12/02/17 07:36 Dose: Not Given Methimazole (Tapazole -) 10 mg PO BID [facility] Last Admin: 12/01/17 21:20 Dose: Not Given Morphine Sulfate (Morphine Sulfate) 2 mg IVPUSH Q4H PRN PRN Reason: PAIN LEVEL 7 - 10 Last Admin: 12/01/17 21:17 Dose: 2 mg Mupirocin (Bactroban Ointment (For Decolonization) -) 1 applic NS BID [facility] Stop: 12/02/17 21:59 Last Admin: 12/01/17 21:19 Dose: 1 applic Oxycodone HCl (Roxicodone -) 5 mg PO Q6H PRN PRN Reason: PAIN LEVEL 7 - 10 Pantoprazole Sodium (Protonix -) 40 mg PO DAILY [facility] Last Admin: 12/01/17 12:19 Dose: Not Given Tramadol HCl (Ultram -) 50 mg PO Q8H PRN PRN Reason: PAIN LEVEL 4 - 6 - Objective Vital Signs: Vital Signs Temperature 98.2 F 12/02/17 06:00 Pulse Rate 98 H 12/02/17 06:00 Respiratory Rate 25 H 12/02/17 06:00 Blood Pressure 100/62 12/02/17 06:00 O2 Sat by Pulse Oximetry (%) 94 L 12/02/17 07:17 Cardiovascular: Yes: S1, S2 Respiratory: Yes: On BiPap Gastrointestinal: Yes: Normal Bowel Sounds, Soft Labs: CBC, BMP 12/02/17 05:30 12/02/17 05:30 INR, PTT INR 3.04 (0.83-1.09) H 12/02/17 05:30 Problem List - Problems (1) Adrenal mass Code(s): E27.9 - DISORDER OF ADRENAL GLAND, UNSPECIFIED (2) Atrial fibrillation Code(s): I48.91 - UNSPECIFIED ATRIAL FIBRILLATION Qualifiers: Atrial fibrillation type: persistent Qualified Code(s): I48.1 - Persistent atrial fibrillation (3) CHF (congestive heart failure) Code(s): I50.9 - HEART FAILURE, UNSPECIFIED (4) 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 Code(s): C67.9 - MALIGNANT NEOPLASM OF BLADDER, UNSPECIFIED; C78.7 - SECONDARY MALIG NEOPLASM OF LIVER AND INTRAHEPATIC BILE DUCT (5) Diabetes Code(s): E11.9 - TYPE 2 DIABETES MELLITUS WITHOUT COMPLICATIONS Assessment/Plan - Problems (1) Respiratory Failure Assessment/Plan: -Bipap -Icu monitoring -Palliative care -Will d/w family (2) Hydronephrosis Assessment/Plan: -R hydronephrosis -s/p R percutaneous nephrostomy tube -nephrology and urology on board -diuretic renal scan to assess patency or right ureter, as there was no output from nephrostomy Code(s): N13.30 - UNSPECIFIED HYDRONEPHROSIS (3) Sepsis Assessment/Plan: -finished IV ABT -continue routine labs monitor CBC -pt afebrile, last lactic acid WNL Code(s): A41.9 - SEPSIS, UNSPECIFIED ORGANISM Qualifiers: Sepsis type: sepsis due to unspecified organism Qualified Code(s): A41.9 - Sepsis, unspecified organism (4) Anemia Assessment/Plan: -serial CBC x 5 to monitor H/H -stool occult negative -iron profile shows iron deficiency, B12 and Thyroid unremarkable -Venofer Infusion x 1 yesterday Code(s): D64.9 - ANEMIA, UNSPECIFIED (5) Atrial fibrillation with rapid ventricular response ON AMIODORONE TRIAL OF DIG CARDIO ON BOARD Code(s): I48.91 - UNSPECIFIED ATRIAL FIBRILLATION (6) 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 Code(s): C67.9 - MALIGNANT NEOPLASM OF BLADDER, UNSPECIFIED; C78.7 - SECONDARY MALIG NEOPLASM OF LIVER AND INTRAHEPATIC BILE DUCT (7) Diabetes Code(s): E11.9 - TYPE 2 DIABETES MELLITUS WITHOUT COMPLICATIONS
[2017-12-02] MEDS: MUPIROCIN 2% TOPICAL OINTMENT FOR DECOLONIZATION NS SCH (09:22)
--- NOTE | 2017-12-02 11:22 | PN ---
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 Currently with HR in 110ss. - Current Medication List Current Medications: Active Medications Acetaminophen (Tylenol -) 650 mg PO Q4H PRN PRN Reason: FEVER Acetaminophen (Tylenol -) 650 mg PO Q4H PRN PRN Reason: PAIN LEVEL 1 - 3 Amiodarone HCl (Cordarone -) 400 mg PO BID [facility] Last Admin: 12/01/17 21:19 Dose: Not Given Aspirin (Asa -) 81 mg PO DAILY [facility] Last Admin: 12/01/17 12:18 Dose: Not Given Atorvastatin Calcium (Lipitor -) 40 mg PO HS [facility] Last Admin: 12/01/17 21:19 Dose: Not Given Chlorhexidine Gluconate (Hibiclens For Decolonization -) 1 applic TP HS [facility] Last Admin: 12/01/17 22:18 Dose: 1 applic Fludrocortisone Acetate (Florinef -) 0.05 mg PO DAILY [facility] Last Admin: 12/01/17 12:19 Dose: Not Given Hydrocortisone Sodium Succinate (Solu-Cortef -) 50 mg IVPB Q6H-IV [facility] Last Admin: 12/02/17 08:44 Dose: 50 mg Norepinephrine Bitartrate 4, (000 mcg/ Dextrose) 500 mls @ 37.5 mls/hr IV TITR [facility]; Protocol Last Admin: 12/02/17 09:16 Dose: 20 mcg/min, 150 mls/hr Insulin Aspart (Novolog Vial Sliding Scale -) 1 vial SQ ACHS [facility]; Protocol Last Admin: 12/02/17 07:36 Dose: Not Given Methimazole (Tapazole -) 10 mg PO BID [facility] Last Admin: 12/01/17 21:20 Dose: Not Given Morphine Sulfate (Morphine Sulfate) 2 mg IVPUSH Q4H PRN PRN Reason: PAIN LEVEL 7 - 10 Last Admin: 12/01/17 21:17 Dose: 2 mg Mupirocin (Bactroban Ointment (For Decolonization) -) 1 applic NS BID [facility] Stop: 12/02/17 21:59 Last Admin: 12/02/17 09:22 Dose: 1 applic Oxycodone HCl (Roxicodone -) 5 mg PO Q6H PRN PRN Reason: PAIN LEVEL 7 - 10 Pantoprazole Sodium (Protonix -) 40 mg PO DAILY [facility] Last Admin: 12/01/17 12:19 Dose: Not Given Tramadol HCl (Ultram -) 50 mg PO Q8H PRN PRN Reason: PAIN LEVEL 4 - 6 - Objective Vital Signs: Vital Signs Temperature 98.6 F 12/02/17 10:00 Pulse Rate 92 H 12/02/17 11:09 Respiratory Rate 24 H 12/02/17 11:09 Blood Pressure 113/70 12/02/17 11:09 O2 Sat by Pulse Oximetry (%) 94 L 12/02/17 07:17 Eyes: Yes: WNL, Conjunctiva Clear, EOM Intact HENT: Yes: WNL, Atraumatic, Normocephalic Neck: Yes: WNL, Supple, Trachea Midline Cardiovascular: Yes: Pulse Irregular, S1, S2 Respiratory: Yes: WNL, Regular, CTA Bilaterally Gastrointestinal: Yes: WNL, Normal Bowel Sounds Genitourinary: Yes: WNL Musculoskeletal: Yes: WNL Extremities: Yes: WNL Edema: No Edema: LLE: 2+, RLE: 2+ Integumentary: Yes: WNL Neurological: Yes: WNL, Alert, Oriented ...Motor Strength: WNL Psychiatric: Yes: WNL Labs: CBC, BMP 12/02/17 05:30 12/02/17 05:30 INR, PTT INR 3.04 (0.83-1.09) H 12/02/17 05:30 Assessment/Plan - Problems (1) Atrial fibrillation with rapid ventricular response Assessment/Plan: Telemetry: AF with RVR. On amiodarone (IV changed to PO). If digoxin is thought necessary, will keep in mind interaction with amiodarone. INR supratherapeutic despite being off anticoagulant for more than a week. Code(s): I48.91 - UNSPECIFIED ATRIAL FIBRILLATION (2) 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 Assessment/Plan: s/p percutaneous nephrostomy tube. f/u with oncologist, . Would recommend conservative management for cardiac issues, in view of multi- organ and bone metastases with liver dysfunction; pt also appears to be disoriented and demented. Consider palliative Rx. Code(s): C67.9 - MALIGNANT NEOPLASM OF BLADDER, UNSPECIFIED; C78.00 - SECONDARY MALIGNANT NEOPLASM OF UNSPECIFIED LUNG (3) Hyperlipidemia Code(s): E78.5 - HYPERLIPIDEMIA, UNSPECIFIED Qualifiers: Hyperlipidemia type: pure hypercholesterolemia Qualified Code(s): E78.00 - Pure hypercholesterolemia, unspecified; E78.0 - Pure hypercholesterolemia (4) S/P coronary artery stent placement Code(s): Z95.5 - PRESENCE OF CORONARY ANGIOPLASTY IMPLANT AND GRAFT (5) Supratherapeutic INR Assessment/Plan: Metatstatic CA noted in liver a likely strong contributor to derangement in coagulation; INR remains suprtherapeutic off anticoagulants Elevated LFTs. Code(s): R79.1 - ABNORMAL COAGULATION PROFILE (6) Septic shock Assessment/Plan: On norepinephrine, which had to be increased early am when BP plumeted. Cautious use of fluids, given poor LVEF. On amiodarone for HR control (AF). CCU time spent evaluating pt and formulating plan: 35 minutes. Code(s): A41.9 - SEPSIS, UNSPECIFIED ORGANISM; R65.21 - SEVERE SEPSIS WITH SEPTIC SHOCK (7) Acute on chronic systolic (congestive) heart failure Assessment/Plan: on amiodarone. Cautious use of fluids, given poor LVEF. Presently unable to wean off norepinephrine. F/u BUN/Cr, electrolytes, Is and Os, daily weight. Code(s): I50.23 - ACUTE ON CHRONIC SYSTOLIC (CONGESTIVE) HEART FAILURE cc time spent 36 min
[2017-12-02] MEDS: METHIMAZOLE 10 MG TABLET (FP) PO SCH ×2 (12:12→21:39)
[2017-12-02] MEDS: FLUDROCORTISONE ACETATE 0.1 MG TABLET (FP) PO SCH (12:12)
[2017-12-02] MEDS: ASPIRIN 81 MG CHEWABLE TABLETS PO SCH (12:12)
[2017-12-02] MEDS: AMIODARONE HCL 200 MG TABLET (FP) PO SCH ×2 (12:12→21:39)
[2017-12-02] MEDS: PANTOPRAZOLE 40 MG TABLET (FP) PO SCH (12:12)
--- NOTE | 2017-12-02 12:38 | PN ---
Progress Note, Physician History of Present Illness: Pt seen and examined at bedside. He remains in the ICU. Pt remains lethargic. - Current Medication List Current Medications: Active Medications Acetaminophen (Tylenol -) 650 mg PO Q4H PRN PRN Reason: FEVER Acetaminophen (Tylenol -) 650 mg PO Q4H PRN PRN Reason: PAIN LEVEL 1 - 3 Amiodarone HCl (Cordarone -) 400 mg PO BID [facility] Last Admin: 12/02/17 12:12 Dose: Not Given Aspirin (Asa -) 81 mg PO DAILY [facility] Last Admin: 12/02/17 12:12 Dose: Not Given Atorvastatin Calcium (Lipitor -) 40 mg PO HS [facility] Last Admin: 12/01/17 21:19 Dose: Not Given Chlorhexidine Gluconate (Hibiclens For Decolonization -) 1 applic TP HS [facility] Last Admin: 12/01/17 22:18 Dose: 1 applic Fludrocortisone Acetate (Florinef -) 0.05 mg PO DAILY [facility] Last Admin: 12/02/17 12:12 Dose: Not Given Hydrocortisone Sodium Succinate (Solu-Cortef -) 50 mg IVPB Q6H-IV [facility] Last Admin: 12/02/17 08:44 Dose: 50 mg Norepinephrine Bitartrate 4, (000 mcg/ Dextrose) 500 mls @ 37.5 mls/hr IV TITR [facility]; Protocol Last Admin: 12/02/17 09:16 Dose: 20 mcg/min, 150 mls/hr Insulin Aspart (Novolog Vial Sliding Scale -) 1 vial SQ ACHS [facility]; Protocol Last Admin: 12/02/17 12:13 Dose: 10 units Methimazole (Tapazole -) 10 mg PO BID [facility] Last Admin: 12/02/17 12:12 Dose: Not Given Morphine Sulfate (Morphine Sulfate) 2 mg IVPUSH Q4H PRN PRN Reason: PAIN LEVEL 7 - 10 Last Admin: 12/01/17 21:17 Dose: 2 mg Mupirocin (Bactroban Ointment (For Decolonization) -) 1 applic NS BID [facility] Stop: 12/02/17 21:59 Last Admin: 12/02/17 09:22 Dose: 1 applic Oxycodone HCl (Roxicodone -) 5 mg PO Q6H PRN PRN Reason: PAIN LEVEL 7 - 10 Pantoprazole Sodium (Protonix -) 40 mg PO DAILY [facility] Last Admin: 12/02/17 12:12 Dose: Not Given Tramadol HCl (Ultram -) 50 mg PO Q8H PRN PRN Reason: PAIN LEVEL 4 - 6 - Objective Vital Signs: Vital Signs Temperature 98.6 F 12/02/17 10:00 Pulse Rate 92 H 12/02/17 12:00 Respiratory Rate 26 H 12/02/17 12:00 Blood Pressure 111/55 L 12/02/17 12:00 O2 Sat by Pulse Oximetry (%) 93 L 12/02/17 09:10 Constitutional: Yes: Mild Distress Eyes: Yes: Conjunctiva Clear Cardiovascular: Yes: S1, S2 Respiratory: Yes: On BiPap Gastrointestinal: Yes: Soft Genitourinary: Yes: Other (ileal conduit, nephrostomy tube) Musculoskeletal: Yes: Muscle Weakness Edema: Yes Edema: LLE: 1+, RLE: 1+ Neurological: Yes: Lethargy Labs: CBC, BMP 12/02/17 05:30 12/02/17 05:30 INR, PTT INR 3.04 (0.83-1.09) H 12/02/17 05:30 - ....Imaging Chest X-ray: Report Reviewed Problem List - Problems (1) Hydronephrosis Code(s): N13.30 - UNSPECIFIED HYDRONEPHROSIS (2) Sepsis Code(s): A41.9 - SEPSIS, UNSPECIFIED ORGANISM Qualifiers: Sepsis type: sepsis due to unspecified organism Qualified Code(s): A41.9 - Sepsis, unspecified organism (3) UTI (urinary tract infection) Code(s): N39.0 - URINARY TRACT INFECTION, SITE NOT SPECIFIED Qualifiers: Urinary tract infection type: acute cystitis Hematuria presence: with hematuria Qualified Code(s): N30.01 - Acute cystitis with hematuria (4) Renal dysfunction Code(s): N28.9 - DISORDER OF KIDNEY AND URETER, UNSPECIFIED Assessment/Plan Current Medications Generic Name Dose Route Start Last Admin Trade Name Freq PRN Reason Stop Dose Admin Acetaminophen 650 mg 11/29/17 13:53 Tylenol - PO Q4H PRN FEVER Acetaminophen 650 mg 11/29/17 13:53 Tylenol - PO Q4H PRN PAIN LEVEL 1 - 3 Amiodarone HCl 400 mg 11/30/17 22:00 12/02/17 12:12 Cordarone - PO Not Given BID [facility] Aspirin 81 mg 11/30/17 10:00 12/02/17 12:12 Asa - PO Not Given DAILY [facility] Atorvastatin Calcium 40 mg 11/29/17 22:00 12/01/17 21:19 Lipitor - PO Not Given HS [facility] Chlorhexidine Gluconate 1 applic 11/27/17 22:00 12/01/17 22:18 Hibiclens For Decolonization - TP 1 applic HS [facility] Administration Fludrocortisone Acetate 0.05 mg 12/01/17 10:00 12/02/17 12:12 Florinef - PO Not Given DAILY [facility] Hydrocortisone Sodium Succinate 50 mg 11/30/17 15:00 12/02/17 08:44 Solu-Cortef - IVPB 50 mg Q6H-IV [facility] Administration Norepinephrine Bitartrate 4, 500 mls @ 37.5 mls/hr 11/27/17 17:00 12/02/17 09 :16 000 mcg/ Dextrose IV 20 mcg/min TITR [facility] 150 mls/hr Administration Protocol 5 MCG/MIN Insulin Aspart 1 vial 12/02/17 07:00 12/02/17 12:13 Novolog Vial Sliding Scale - SQ 10 units ACHS [facility] Administration Protocol Methimazole 10 mg 11/29/17 22:00 12/02/17 12:12 Tapazole - PO Not Given BID [facility] Morphine Sulfate 2 mg 12/01/17 11:32 12/01/17 21:17 Morphine Sulfate IVPUSH 2 mg Q4H PRN Administration PAIN LEVEL 7 - 10 Mupirocin 1 applic 11/27/17 22:00 12/02/17 09:22 Bactroban Ointment (For Decolonization) - NS 12/02/17 21:59 1 applic BID [facility] Administration Oxycodone HCl 5 mg 11/29/17 13:53 Roxicodone - PO Q6H PRN PAIN LEVEL 7 - 10 Pantoprazole Sodium 40 mg 11/30/17 10:00 12/02/17 12:12 Protonix - PO Not Given DAILY [facility] Tramadol HCl 50 mg 11/29/17 13:53 Ultram - PO Q8H PRN PAIN LEVEL 4 - 6 Impression 1. CKD 2. altered mental status 3. a-fib 4. DM 5. HTN 6. hx bladder cancer 7. leukocytosis 8. sepsis 9. hyperkalemia 10. chon 11. rapid a-fib 12. hypotension 13. resp failure requiring bipap Plan - cont pressors to a map of 65 - fluids on hold - cont bipap - pulmonary follow up - daily cxr - monitor pulse ox - monitor urine output - pt likely developing ATN - will need to discuss GOC - will follow Dr Baltazar
--- NOTE | 2017-12-02 13:04 | PN ---
Teaching Attending Note Name of Resident: Gudelia Cortez ATTENDING PHYSICIAN STATEMENT I saw and evaluated the patient. I reviewed the resident's note and discussed the case with the resident. I agree with the resident's findings and plan as documented. SUBJECTIVE: Pt seen and examined in the ICU. Lethargic on BiPAP. Remains on levophed gtt. Pt now DNR/DNI. OBJECTIVE: Vital Signs Period Temp Pulse Resp BP Sys/Maynard Pulse Ox Last 24 Hr 97.5 F-98.9 F 70-111 16-30 69-113/39-70 92-97 Intake & Output 11/29/17 11/30/17 12/01/17 12/02/17 23:59 23:59 23:59 23:59 Intake Total 3166.8 2284.6 2262 948 Output Total 1650 650 550 100 Balance 1516.8 1634.6 1712 848 Weight 78.608 kg 79.861 kg 78.273 kg 84.141 kg Gen: lethargic, tachypneic Heart: irregular Lung: scattered rhonchi Abd: soft, nontender Ext: + edema CBC, BMP 12/02/17 05:30 12/02/17 05:30 Active Medications Acetaminophen (Tylenol -) 650 mg PO Q4H PRN PRN Reason: FEVER Acetaminophen (Tylenol -) 650 mg PO Q4H PRN PRN Reason: PAIN LEVEL 1 - 3 Amiodarone HCl (Cordarone -) 400 mg PO BID [facility] Last Admin: 12/02/17 12:12 Dose: Not Given Aspirin (Asa -) 81 mg PO DAILY [facility] Last Admin: 12/02/17 12:12 Dose: Not Given Atorvastatin Calcium (Lipitor -) 40 mg PO HS [facility] Last Admin: 12/01/17 21:19 Dose: Not Given Chlorhexidine Gluconate (Hibiclens For Decolonization -) 1 applic TP [facility] Last Admin: 12/01/17 22:18 Dose: 1 applic Fludrocortisone Acetate (Florinef -) 0.05 mg PO DAILY [facility] Last Admin: 12/02/17 12:12 Dose: Not Given Hydrocortisone Sodium Succinate (Solu-Cortef -) 50 mg IVPB Q6H-IV [facility] Last Admin: 12/02/17 08:44 Dose: 50 mg Norepinephrine Bitartrate 4, (000 mcg/ Dextrose) 500 mls @ 37.5 mls/hr IV TITR [facility]; Protocol Last Admin: 12/02/17 09:16 Dose: 20 mcg/min, 150 mls/hr Insulin Aspart (Novolog Vial Sliding Scale -) 1 vial SQ ACHS [facility]; Protocol Last Admin: 12/02/17 12:13 Dose: 10 units Methimazole (Tapazole -) 10 mg PO BID [facility] Last Admin: 12/02/17 12:12 Dose: Not Given Morphine Sulfate (Morphine Sulfate) 2 mg IVPUSH Q4H PRN PRN Reason: PAIN LEVEL 7 - 10 Last Admin: 12/01/17 21:17 Dose: 2 mg Mupirocin (Bactroban Ointment (For Decolonization) -) 1 applic NS BID [facility] Stop: 12/02/17 21:59 Last Admin: 12/02/17 09:22 Dose: 1 applic Oxycodone HCl (Roxicodone -) 5 mg PO Q6H PRN PRN Reason: PAIN LEVEL 7 - 10 Pantoprazole Sodium (Protonix -) 40 mg PO DAILY [facility] Last Admin: 12/02/17 12:12 Dose: Not Given Tramadol HCl (Ultram -) 50 mg PO Q8H PRN PRN Reason: PAIN LEVEL 4 - 6 ASSESSMENT AND PLAN: Metastatic Bladder Cancer UTI Septic Shock Multiorgan Failure Acute Hypoxic Respiratory Failure Acute on Chronic Renal Failure Elevated LFTs likely Ischemic Injury Coagulopathy Atrial Fibrillation with RVR Hyponatremia HTN DM - antibiotics per ID - titrate levophed gtt to MAP >65 - rate control - monitor urine output, creatinine - BiPAP to assist in work of breathing - trend LFTs, coags - given worsening multiorgan failure in pt with metastatic disease, recommend comfort measures, continue discussions with family critical care time spent in reviewing chart, evaluating patient and formulating plan 35 min
[2017-12-02] MEDS: MORPHINE SULFATE 2 MG/ML VIAL IVPUSH PRN (13:06)
[2017-12-02] MEDS ORDERED: NOREPINEPHRINE BITARTRATE 4 MG/4 ML ML IV ONE ×2 (13:26→17:48)
--- NOTE | 2017-12-02 15:04 | PN ---
Physical Exam: SUBJECTIVE: Patient seen and examined at bedside this morning. Patient was tachycardic overnight. Given Digoxin 0.25mg once. OBJECTIVE: Vital Signs Period Temp Pulse Resp BP Sys/Maynard Pulse Ox Last 24 Hr 97.5 F-98.6 F 70-111 16-30 69-113/39-70 92-97 GENERAL: The patient is awake, alert, on bipap. HEAD: Normal with no signs of trauma. EYES: PERRLA, EOMI, sclera anicteric, conjunctiva clear. ENT: Ears normal, nares patent, dry mucous membranes. NECK: Trachea midline, full range of motion, supple. LUNGS: +Coarse breath sounds bilaterally HEART: Tachycardic, irregularly irregular, S1, S2 without murmur, rub or gallop. ABDOMEN: Soft, nontender, nondistended, normoactive bowel sounds. EXTREMITIES: 1+ pulses, warm, well-perfused, no edema. SKIN: Warm, dry, normal turgor Laboratory Results - last 24 hr 12/02/17 12/02/17 12/02/17 05:30 05:30 05:30 WBC 23.8 H RBC 4.14 Hgb 11.0 L Hct 35.4 MCV 85.4 MCH 26.5 MCHC 31.0 L RDW 19.9 H Plt Count 236 MPV 10.6 PT with INR 36.30 H INR 3.04 H Sodium 128 L Potassium 4.4 Chloride 96 L Carbon Dioxide 16 L Anion Gap 15 BUN 64 H Creatinine 2.2 H Creat Clearance w eGFR 29.83 Random Glucose 395 H* Calcium 9.5 Phosphorus 4.0 Magnesium 1.9 Total Bilirubin 1.2 H AST 56 H ALT 103 H Alkaline Phosphatase 472 H Total Protein 5.3 L Albumin 1.6 L Active Medications Generic Name Dose Route Start Last Admin Trade Name Freq PRN Reason Stop Dose Admin Acetaminophen 650 mg 11/29/17 13:53 Tylenol - PO Q4H PRN FEVER Acetaminophen 650 mg 11/29/17 13:53 Tylenol - PO Q4H PRN PAIN LEVEL 1 - 3 Amiodarone HCl 400 mg 11/30/17 22:00 12/02/17 12:12 Cordarone - PO Not Given BID [facility] Aspirin 81 mg 11/30/17 10:00 12/02/17 12:12 Asa - PO Not Given DAILY [facility] Atorvastatin Calcium 40 mg 11/29/17 22:00 12/01/17 21:19 Lipitor - PO Not Given HS [facility] Chlorhexidine Gluconate 1 applic 11/27/17 22:00 12/01/17 22:18 Hibiclens For Decolonization - TP 1 applic HS [facility] Administration Fludrocortisone Acetate 0.1 mg 12/03/17 10:00 Florinef - PO DAILY [facility] Hydrocortisone Sodium Succinate 50 mg 12/02/17 17:00 Solu-Cortef - IVPB Q8H [facility] Norepinephrine Bitartrate 4, 500 mls @ 37.5 mls/hr 11/27/17 17:00 12/02/17 13 :28 000 mcg/ Dextrose IV 20 mcg/min TITR [facility] 150 mls/hr Administration Protocol 5 MCG/MIN Insulin Aspart 1 vial 12/02/17 07:00 12/02/17 12:13 Novolog Vial Sliding Scale - SQ 10 units ACHS [facility] Administration Protocol Methimazole 10 mg 11/29/17 22:00 12/02/17 12:12 Tapazole - PO Not Given BID [facility] Morphine Sulfate 2 mg 12/01/17 11:32 12/02/17 13:06 Morphine Sulfate IVPUSH 2 mg Q4H PRN Administration PAIN LEVEL 7 - 10 Mupirocin 1 applic 11/27/17 22:00 12/02/17 09:22 Bactroban Ointment (For Decolonization) - NS 12/02/17 21:59 1 applic BID [facility] Administration Pantoprazole Sodium 40 mg 11/30/17 10:00 12/02/17 12:12 Protonix - PO Not Given DAILY [facility] ASSESSMENT/PLAN: Patient is a 67 year old male with past medical history of 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 Initially BIBEMS from [facility] and admitted to ICU w/ septic shock 2/2 UTI. Stabilized and transferred to floors. Now re-admitted to ICU with episode of rapid afib and hypotension, non-reponsive to bolus, s/p cardioversion and amiodarone gtt initiation. 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 -Levophed increased to 20mcg/min -Amiodarone drip discontinued. -Started Amiodarone 400mg BID PO. -Continue Methimazole 10mg BID -Solu-cortef decreased to 50mg q6h. -Started Fludrocortisone 0.05mg daily. -INR 3.04. Hold Warfarin for now. -will continue to monitor INR, to keep at 2-3. -Digoxin PRN for rate control -Plavix discontinued. 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 -Started Fludrocortisone 0.05mg daily. #Pulmonary 1)Acute on chronic hypoxic respiratory failure -patient desaturated overnight to 60s-70s -initially placed on nonrebreather mask, with no improvement -Bag-mask valve increased saturation, patient stabilized on bipap. -Nebs PRN 2)Pulmonary Metastases -CXR (12/01/17): bilateral diffuse lung nodules, metastatic lesions. -CT Scan (11/05/17): shows multiple mets to liver, lungs, worsening hydronephrosis, suspicious for distal ureteral strictures at conduit, worsening L2-L4 bone metastases, new right adrenal metastases #Urology/Renal -s/p cystectomy and ileal conduit for Metastatic Bladder Ca -Urology following (Dr. Ruddy Mcguire). -Nephrology following (Dr. Baltazar). #F/E/N -not on any standing fluids -Strict Is & Os -monitor electrolytes and replete as necessary -NPO #Prophylaxis 1)DVT -patient on Warfarin 2)GI -Protonix #Dispo -DNR/DNI -We will continue to follow the patient in the ICU. Thank you for this consultative opportunity. Visit type - Emergency Visit Emergency Visit: Yes ED Registration Date: 11/05/17 Care time: The patient presented to the Emergency Department on the above date and was hospitalized for further evaluation of their emergent condition. - New Patient This patient is new to me today: Yes Date on this admission: 12/02/17 - Critical Care Critical Care patient: Yes Total Critical Care Time (in minutes): 45 Critical Care Statement: The care of this patient involved high complexity decision making to prevent further life threatening deterioration of the patient 's condition and/or to evaluate & treat vital organ system(s) failure or risk of failure.
[2017-12-02] MEDS: ATORVASTATIN CA 40 MG TABLET (FP) PO SCH (21:39)
[2017-12-02] MEDS: NOREPINEPHRINE BITARTRATE 8,000 MCG in DEXTROSE 5%-WATER - 492 ML IV SCH (21:40)
[2017-12-02] MEDS: CHLORHEXIDINE GLUCONATE 4% CLEANSER FOR DECOLONIZATION TP SCH (21:42)
--- NOTE | 2017-12-02 22:36 | PN ---
Progress Note (short form) - Note Progress Note: awake lethargic weak dyspneic at rest Current Active Problems HEYDI (acute kidney injury) (Acute) Acute on chronic systolic (congestive) heart failure (Acute) Adrenal mass (Acute) Depression (Acute) Hydronephrosis (Acute) Hyperthyroidism (Acute) Septic shock (Acute) Supratherapeutic INR (Acute) Tachycardia (Acute) UTI (urinary tract infection) (Acute) Abnormal Lab Results 12/02/17 12/02/17 12/02/17 05:30 05:30 05:30 WBC 23.8 H Hgb 11.0 L MCHC 31.0 L RDW 19.9 H PT with INR 36.30 H INR 3.04 H Sodium 128 L Chloride 96 L Carbon Dioxide 16 L BUN 64 H Creatinine 2.2 H Random Glucose 395 H* Total Bilirubin 1.2 H AST 56 H ALT 103 H Alkaline Phosphatase 472 H Total Protein 5.3 L Albumin 1.6 L Laboratory Results - last 24 hr 12/02/17 12/02/17 12/02/17 05:30 05:30 05:30 WBC 23.8 H RBC 4.14 Hgb 11.0 L Hct 35.4 MCV 85.4 MCH 26.5 MCHC 31.0 L RDW 19.9 H Plt Count 236 MPV 10.6 PT with INR 36.30 H INR 3.04 H Sodium 128 L Potassium 4.4 Chloride 96 L Carbon Dioxide 16 L Anion Gap 15 BUN 64 H Creatinine 2.2 H Creat Clearance w eGFR 29.83 POC Glucometer Random Glucose 395 H* Calcium 9.5 Phosphorus 4.0 Magnesium 1.9 Total Bilirubin 1.2 H AST 56 H ALT 103 H Alkaline Phosphatase 472 H Total Protein 5.3 L Albumin 1.6 L 12/02/17 12/02/17 12:12 17:01 WBC RBC Hgb Hct MCV MCH MCHC RDW Plt Count MPV PT with INR INR Sodium Potassium Chloride Carbon Dioxide Anion Gap BUN Creatinine Creat Clearance w eGFR POC Glucometer [phone] Random Glucose Calcium Phosphorus Magnesium Total Bilirubin AST ALT Alkaline Phosphatase Total Protein Albumin 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 symptomatic plan; tapazole 10mg bid iv solucortef 50mg bid po florinef .1mg hs repeat tsh free t4 am cortisol acth Problem List - Problems (1) HEYDI (acute kidney injury) Code(s): N17.9 - ACUTE KIDNEY FAILURE, UNSPECIFIED (2) Adrenal mass Code(s): E27.9 - DISORDER OF ADRENAL GLAND, UNSPECIFIED (3) Hydronephrosis Code(s): N13.30 - UNSPECIFIED HYDRONEPHROSIS (4) Sepsis Code(s): A41.9 - SEPSIS, UNSPECIFIED ORGANISM Qualifiers: Sepsis type: sepsis due to unspecified organism Qualified Code(s): A41.9 - Sepsis, unspecified organism (5) Supratherapeutic INR Code(s): R79.1 - ABNORMAL COAGULATION PROFILE (6) Anemia Code(s): D64.9 - ANEMIA, UNSPECIFIED
[2017-12-03] MEDS: INSULIN SLIDING SCALE (NOVOLOG) 1 VIAL SQ SCH ×5 (00:34→22:14)
[2017-12-03] MEDS: HYDROCORTISONE SOD SUCCINATE 100 MG/2 ML VIAL IVPB SCH ×3 (01:27→17:20)
[2017-12-03 06:24] LABS: INR 3.56 (0.83-1.09); PROTHROMBIN TIME (PATIENT) 42.5 SEC (9.7-13.0)
[2017-12-03 06:25] LABS: HEMATOCRIT 36.1 % (35.4-49); HEMOGLOBIN 11.3 GM/dL (11.7-16.9); MCH 26.6 pg (25.7-33.7); MCHC 31.2 g/dl (32.0-35.9); MEAN CELL VOLUME 85.4 fl (80-96); MEAN PLT VOLUME 10.3 fl (7.5-11.1); PLATELET COUNT 195 K/MM3 (134-434); RBC 4.23 M/mm3 (4.00-5.60); RDW 19.3 % (11.9-15.9); WHITE BLOOD COUNT 24.4 K/mm3 (4.0-10.0)
[2017-12-03] MEDS: INSULIN (LEVEMIR) 100 UNITS/ML UNITS SQ SCH (06:54)
[2017-12-03 07:02] LABS: ALBUMIN 1.5 g/dl (3.4-5.0); ALK PHOS 478 U/L (45-117); ANION GAP 18 MMOL/L (8-16); BILIRUBIN,TOTAL 1.3 mg/dL (0.2-1); BLOOD UREA NITROGEN 73 mg/dL (7-18); CALCIUM 9.5 mg/dL (8.5-10.1); CHLORIDE 90 mmol/L (98-107); CO2 15 mmol/L (21-32); CREATININE 2.7 mg/dL (0.55-1.3); GLUCOSE,RANDOM 192 mg/dL (74-106); MAGNESIUM 2.1 mg/dL (1.8-2.4); PHOSPHOROUS 4.5 mg/dL (2.5-4.9); POTASSIUM 4.5 mmol/L (3.5-5.1); SGOT/AST 156 U/L (15-37); SGPT/ALT 136 U/L (13-61); SODIUM 123 mmol/L (136-145); TOT PROT 5.2 g/dl (6.4-8.2)
--- NOTE | 2017-12-03 08:28 | PN ---
Progress Note, Physician - Current Medication List Current Medications: Active Medications Acetaminophen (Tylenol -) 650 mg PO Q4H PRN PRN Reason: FEVER Acetaminophen (Tylenol -) 650 mg PO Q4H PRN PRN Reason: PAIN LEVEL 1 - 3 Amiodarone HCl (Cordarone -) 400 mg PO BID [facility] Last Admin: 12/02/17 21:39 Dose: Not Given Aspirin (Asa -) 81 mg PO DAILY [facility] Last Admin: 12/02/17 12:12 Dose: Not Given Atorvastatin Calcium (Lipitor -) 40 mg PO HS [facility] Last Admin: 12/02/17 21:39 Dose: Not Given Chlorhexidine Gluconate (Hibiclens For Decolonization -) 1 applic TP HS [facility] Last Admin: 12/02/17 21:42 Dose: 1 applic Fludrocortisone Acetate (Florinef -) 0.1 mg PO DAILY [facility] Hydrocortisone Sodium Succinate (Solu-Cortef -) 50 mg IVPB Q8H [facility] Last Admin: 12/03/17 01:27 Dose: 50 mg Norepinephrine Bitartrate 8, (000 mcg/ Dextrose) 500 mls @ 18.75 mls/hr IV TITR [facility]; Protocol Last Titration: 12/03/17 00:00 Dose: 30 mcg/min, 112.5 mls/hr Insulin Aspart (Novolog Vial Sliding Scale -) 1 vial SQ ACHS [facility]; Protocol Last Admin: 12/03/17 06:54 Dose: 8 units Insulin Detemir (Levemir Vial) 20 units SQ AM [facility] Last Admin: 12/03/17 06:54 Dose: 20 units Methimazole (Tapazole -) 10 mg PO BID [facility] Last Admin: 12/02/17 21:39 Dose: Not Given Morphine Sulfate (Morphine Sulfate) 2 mg IVPUSH Q4H PRN PRN Reason: PAIN LEVEL 7 - 10 Last Admin: 12/02/17 13:06 Dose: 2 mg Pantoprazole Sodium (Protonix -) 40 mg PO DAILY [facility] Last Admin: 12/02/17 12:12 Dose: Not Given - Objective Vital Signs: Vital Signs Temperature 98.0 F 12/03/17 06:00 Pulse Rate 111 H 12/03/17 06:00 Respiratory Rate 22 H 12/03/17 06:00 Blood Pressure 92/71 12/03/17 06:00 O2 Sat by Pulse Oximetry (%) 96 12/03/17 07:00 Cardiovascular: Yes: S1, S2 Respiratory: Yes: Regular, CTA Bilaterally Gastrointestinal: Yes: Normal Bowel Sounds, Soft Labs: CBC, BMP 12/03/17 05:30 12/03/17 05:30 INR, PTT INR 3.56 (0.83-1.09) H 12/03/17 05:30 Problem List - Problems (1) Adrenal mass Code(s): E27.9 - DISORDER OF ADRENAL GLAND, UNSPECIFIED (2) Atrial fibrillation Code(s): I48.91 - UNSPECIFIED ATRIAL FIBRILLATION Qualifiers: Atrial fibrillation type: persistent Qualified Code(s): I48.1 - Persistent atrial fibrillation (3) CHF (congestive heart failure) Code(s): I50.9 - HEART FAILURE, UNSPECIFIED (4) 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 Code(s): C67.9 - MALIGNANT NEOPLASM OF BLADDER, UNSPECIFIED; C78.7 - SECONDARY MALIG NEOPLASM OF LIVER AND INTRAHEPATIC BILE DUCT (5) Diabetes Code(s): E11.9 - TYPE 2 DIABETES MELLITUS WITHOUT COMPLICATIONS Assessment/Plan - Problems (1) Respiratory Failure Assessment/Plan: -Bipap -Icu monitoring -Palliative care -Will d/w family (2) Hydronephrosis Assessment/Plan: -R hydronephrosis -s/p R percutaneous nephrostomy tube -nephrology and urology on board -diuretic renal scan to assess patency or right ureter, as there was no output from nephrostomy Code(s): N13.30 - UNSPECIFIED HYDRONEPHROSIS (3) Sepsis Assessment/Plan: -finished IV ABT -continue routine labs monitor CBC -pt afebrile, last lactic acid WNL Code(s): A41.9 - SEPSIS, UNSPECIFIED ORGANISM Qualifiers: Sepsis type: sepsis due to unspecified organism Qualified Code(s): A41.9 - Sepsis, unspecified organism (4) Anemia Assessment/Plan: -serial CBC x 5 to monitor H/H -stool occult negative -iron profile shows iron deficiency, B12 and Thyroid unremarkable -Venofer Infusion x 1 yesterday Code(s): D64.9 - ANEMIA, UNSPECIFIED (5) Atrial fibrillation with rapid ventricular response ON AMIODORONE TRIAL OF DIG CARDIO ON BOARD Code(s): I48.91 - UNSPECIFIED ATRIAL FIBRILLATION (6) 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 Code(s): C67.9 - MALIGNANT NEOPLASM OF BLADDER, UNSPECIFIED; C78.7 - SECONDARY MALIG NEOPLASM OF LIVER AND INTRAHEPATIC BILE DUCT (7) Diabetes Code(s): E11.9 - TYPE 2 DIABETES MELLITUS WITHOUT COMPLICATIONS
[2017-12-03] MEDS: MORPHINE SULFATE 2 MG/ML VIAL IVPUSH PRN ×3 (08:37→19:30)
[2017-12-03] MEDS ORDERED: NOREPINEPHRINE BITARTRATE 4 MG/4 ML ML IV ONE ×3 (09:22→22:10)
[2017-12-03] MEDS: NOREPINEPHRINE BITARTRATE 8,000 MCG in DEXTROSE 5%-WATER - 492 ML IV SCH ×2 (09:27→15:05)
[2017-12-03] MEDS ORDERED: FLUDROCORTISONE ACETATE 0.1 MG TABLET (FP) PO SCH (10:00)
--- NOTE | 2017-12-03 12:20 | PN ---
Teaching Attending Note Name of Resident: Gudelia Cortez ATTENDING PHYSICIAN STATEMENT I saw and evaluated the patient. I reviewed the resident's note and discussed the case with the resident. I agree with the resident's findings and plan as documented. SUBJECTIVE: Patient seen and examined in the ICU. Lethargic on NIPPV. Remains on 25 mcq NE drip for hemodynamic support. Intake & Output 11/30/17 12/01/17 12/02/17 12/03/17 23:59 23:59 23:59 23:59 Intake Total 2284.6 2262 2748 1200 Output Total 650 550 500 20 Balance 1634.6 1712 2248 1180 Weight 176 lb 1 oz 172 lb 9 oz 185 lb 8 oz 183 lb 3.266 oz Last Vital Signs Temp Pulse Resp BP Pulse Ox 98.4 F 110 H 22 H 115/73 98 12/03/17 10:00 12/03/17 10:00 12/03/17 10:00 12/03/17 10:00 12/03/17 11:04 Active Medications Acetaminophen (Tylenol -) 650 mg PO Q4H PRN PRN Reason: FEVER Acetaminophen (Tylenol -) 650 mg PO Q4H PRN PRN Reason: PAIN LEVEL 1 - 3 Amiodarone HCl (Cordarone -) 400 mg PO BID [facility] Last Admin: 12/02/17 21:39 Dose: Not Given Aspirin (Asa -) 81 mg PO DAILY [facility] Last Admin: 12/02/17 12:12 Dose: Not Given Atorvastatin Calcium (Lipitor -) 40 mg PO HS [facility] Last Admin: 12/02/17 21:39 Dose: Not Given Chlorhexidine Gluconate (Hibiclens For Decolonization -) 1 applic TP HS [facility] Last Admin: 12/02/17 21:42 Dose: 1 applic Fludrocortisone Acetate (Florinef -) 0.1 mg PO DAILY [facility] Hydrocortisone Sodium Succinate (Solu-Cortef -) 50 mg IVPB Q8H [facility] Last Admin: 12/03/17 08:48 Dose: 50 mg Norepinephrine Bitartrate 8, (000 mcg/ Dextrose) 500 mls @ 18.75 mls/hr IV TITR [facility]; Protocol Last Admin: 12/03/17 09:27 Dose: 30 mcg/min, 112.5 mls/hr Insulin Aspart (Novolog Vial Sliding Scale -) 1 vial SQ ACHS [facility]; Protocol Last Admin: 12/03/17 06:54 Dose: 8 units Insulin Detemir (Levemir Vial) 20 units SQ AM [facility] Last Admin: 12/03/17 06:54 Dose: 20 units Methimazole (Tapazole -) 10 mg PO BID [facility] Last Admin: 12/02/17 21:39 Dose: Not Given Morphine Sulfate (Morphine Sulfate) 2 mg IVPUSH Q4H PRN PRN Reason: PAIN LEVEL 7 - 10 Last Admin: 12/03/17 08:37 Dose: 2 mg Pantoprazole Sodium (Protonix -) 40 mg PO DAILY [facility] Last Admin: 12/02/17 12:12 Dose: Not Given Constitutional: Yes: Lethargic on NIPPV Eyes: Yes: WNL, Conjunctiva Clear HENT: Yes: WNL, Atraumatic, Normocephalic Neck: Yes: WNL, Supple, Trachea Midline Cardiovascular: Yes: Pulse Irregular Respiratory: Yes: Bilateral coarse rhonchi, on NIPPV Gastrointestinal: Yes: Other (Ileostomy) ...Rectal Exam: Yes: Deferred Renal/: Yes: Other (Nephrostomy) Breast(s): Yes: WNL Musculoskeletal: Yes: Muscle Weakness Extremities: Yes: WNL Edema: Yes Edema: LUE: Trace, RUE: Trace, LLE: 1+, RLE: 1+ Peripheral Pulses WNL: Yes Integumentary: Yes: WNL Wound/Incision: Yes: Clean/Dry Neurological: Yes: WNL ...Motor Strength: WNL Labs: Laboratory Results - last 24 hr 12/02/17 12/02/17 12/02/17 12:12 17:01 22:06 WBC RBC Hgb Hct MCV MCH MCHC RDW Plt Count MPV PT with INR INR Sodium Potassium Chloride Carbon Dioxide Anion Gap BUN Creatinine Creat Clearance w eGFR POC Glucometer [phone] [phone] Random Glucose Calcium Phosphorus Magnesium Total Bilirubin AST ALT Alkaline Phosphatase Total Protein Albumin TSH Free T4 12/03/17 12/03/17 12/03/17 05:30 05:30 05:30 WBC 24.4 H RBC 4.23 Hgb 11.3 L Hct 36.1 MCV 85.4 MCH 26.6 MCHC 31.2 L RDW 19.3 H Plt Count 195 MPV 10.3 PT with INR 42.50 H INR 3.56 H Sodium 123 L Potassium 4.5 Chloride 90 L Carbon Dioxide 15 L Anion Gap 18 H BUN 73 H Creatinine 2.7 H Creat Clearance w eGFR 23.55 POC Glucometer Random Glucose 192 H Calcium 9.5 Phosphorus 4.5 Magnesium 2.1 Total Bilirubin 1.3 H AST 156 H ALT 136 H Alkaline Phosphatase 478 H Total Protein 5.2 L Albumin 1.5 L TSH 0.10 L D Free T4 12/03/17 05:30 WBC RBC Hgb Hct MCV MCH MCHC RDW Plt Count MPV PT with INR INR Sodium Potassium Chloride Carbon Dioxide Anion Gap BUN Creatinine Creat Clearance w eGFR POC Glucometer Random Glucose Calcium Phosphorus Magnesium Total Bilirubin AST ALT Alkaline Phosphatase Total Protein Albumin TSH Free T4 1.45 H Problem List - Problems (1) HEYDI (acute kidney injury) Code(s): N17.9 - ACUTE KIDNEY FAILURE, UNSPECIFIED (2) Adrenal mass Code(s): E27.9 - DISORDER OF ADRENAL GLAND, UNSPECIFIED (3) Hyperthyroidism Code(s): E05.90 - THYROTOXICOSIS, UNSP WITHOUT THYROTOXIC CRISIS OR STORM (4) Tachycardia Code(s): R00.0 - TACHYCARDIA, UNSPECIFIED (5) Atrial fibrillation Code(s): I48.91 - UNSPECIFIED ATRIAL FIBRILLATION Qualifiers: Atrial fibrillation type: persistent Qualified Code(s): I48.1 - Persistent atrial fibrillation (6) Atrial fibrillation with rapid ventricular response Code(s): I48.91 - UNSPECIFIED ATRIAL FIBRILLATION (7) 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 (8) CHF (congestive heart failure) Code(s): I50.9 - HEART FAILURE, UNSPECIFIED (9) Cardiomyopathy Code(s): I42.9 - CARDIOMYOPATHY, UNSPECIFIED Qualifiers: Cardiomyopathy type: ischemic Qualified Code(s): I25.5 - Ischemic cardiomyopathy (10) Chronic anticoagulation Code(s): Z79.01 - INTERMEDIATE (CURRENT) USE OF ANTICOAGULANTS (11) Chronic systolic (congestive) heart failure Code(s): I50.22 - CHRONIC SYSTOLIC (CONGESTIVE) HEART FAILURE (12) Diabetes Code(s): E11.9 - TYPE 2 DIABETES MELLITUS WITHOUT COMPLICATIONS Assessment/Plan -Septic Shock / suspect component of Adrenal failure -Recurrent A-Fib w/ RVR -CKD -CHF -CAD -End Stage PLAN: -NE for BP support -Digoxin PRN -NIPPV support -BD TX PRN -Strict I's & O's -Monitor UOP -Replete e-lytes prn -Monitor off plavix -Follow INR -Follow LFTs -Solu-Cortef: 50mg Q6h -Methimazole -Fludrocortisone -PPI -Will need further GOC discussions given overall grave prognosis Dr Varma Critical Care Time/MDM Note Total Critical Care Time: 39 Critical Care Statement: The care of this patient involved high complexity decision making to prevent further life threatening deterioration of the patient 's condition and/or to evaluate & treat vital organ system(s) failure or risk of failure.
[2017-12-03] MEDS: METHIMAZOLE 10 MG TABLET (FP) PO SCH ×2 (12:22→21:41)
[2017-12-03] MEDS: PANTOPRAZOLE 40 MG TABLET (FP) PO SCH (12:22)
[2017-12-03] MEDS: ASPIRIN 81 MG CHEWABLE TABLETS PO SCH (12:22)
[2017-12-03] MEDS: AMIODARONE HCL 200 MG TABLET (FP) PO SCH ×2 (12:22→21:41)
--- NOTE | 2017-12-03 15:11 | PN ---
Physical Exam: SUBJECTIVE: Patient seen and examined at bedside this morning. Patient remains on bipap. No acute events overnight. Talked to family today regarding goals of care. They want comfort care for the patient, but will decide upon it tomorrow. As for now, they do not want anymore labs or imaging done. Consent signed in the DNR/DNI form. OBJECTIVE: Vital Signs Period Temp Pulse Resp BP Sys/Maynard Pulse Ox Last 24 Hr 97.5 F-98.7 F 52-112 19-22 78-132/52-116 96-99 GENERAL: The patient is awake, on bipap. HEAD: Normal with no signs of trauma. EYES: PERRLA, EOMI, sclera anicteric, conjunctiva clear. ENT: Ears normal, nares patent, dry mucous membranes. NECK: Trachea midline, full range of motion, supple. LUNGS: +Coarse breath sounds bilaterally HEART: Tachycardic, irregularly irregular, S1, S2 without murmur, rub or gallop. ABDOMEN: Soft, nontender, nondistended, normoactive bowel sounds. EXTREMITIES: 1+ pulses, warm, well-perfused, no edema. SKIN: Warm, dry, normal turgor Laboratory Results - last 24 hr 12/02/17 12/02/17 12/02/17 12:12 17:01 22:06 WBC RBC Hgb Hct MCV MCH MCHC RDW Plt Count MPV PT with INR INR Sodium Potassium Chloride Carbon Dioxide Anion Gap BUN Creatinine Creat Clearance w eGFR POC Glucometer [phone] [phone] Random Glucose Calcium Phosphorus Magnesium Total Bilirubin AST ALT Alkaline Phosphatase Total Protein Albumin TSH Free T4 12/03/17 12/03/17 12/03/17 05:30 05:30 05:30 WBC 24.4 H RBC 4.23 Hgb 11.3 L Hct 36.1 MCV 85.4 MCH 26.6 MCHC 31.2 L RDW 19.3 H Plt Count 195 MPV 10.3 PT with INR 42.50 H INR 3.56 H Sodium 123 L Potassium 4.5 Chloride 90 L Carbon Dioxide 15 L Anion Gap 18 H BUN 73 H Creatinine 2.7 H Creat Clearance w eGFR 23.55 POC Glucometer Random Glucose 192 H Calcium 9.5 Phosphorus 4.5 Magnesium 2.1 Total Bilirubin 1.3 H AST 156 H ALT 136 H Alkaline Phosphatase 478 H Total Protein 5.2 L Albumin 1.5 L TSH 0.10 L D Free T4 12/03/17 12/03/17 05:30 05:58 WBC RBC Hgb Hct MCV MCH MCHC RDW Plt Count MPV PT with INR INR Sodium Potassium Chloride Carbon Dioxide Anion Gap BUN Creatinine Creat Clearance w eGFR POC Glucometer [phone] Random Glucose Calcium Phosphorus Magnesium Total Bilirubin AST ALT Alkaline Phosphatase Total Protein Albumin TSH Free T4 1.45 H Active Medications Generic Name Dose Route Start Last Admin Trade Name Freq PRN Reason Stop Dose Admin Acetaminophen 650 mg 11/29/17 13:53 Tylenol - PO Q4H PRN FEVER Acetaminophen 650 mg 11/29/17 13:53 Tylenol - PO Q4H PRN PAIN LEVEL 1 - 3 Amiodarone HCl 400 mg 11/30/17 22:00 12/03/17 12:22 Cordarone - PO Not Given BID [facility] Aspirin 81 mg 11/30/17 10:00 12/03/17 12:22 Asa - PO Not Given DAILY [facility] Atorvastatin Calcium 40 mg 11/29/17 22:00 12/02/17 21:39 Lipitor - PO Not Given HS [facility] Chlorhexidine Gluconate 1 applic 11/27/17 22:00 12/02/17 21:42 Hibiclens For Decolonization - TP 1 applic HS [facility] Administration Fludrocortisone Acetate 0.1 mg 12/03/17 10:00 12/03/17 12:22 Florinef - PO Not Given DAILY [facility] Hydrocortisone Sodium Succinate 50 mg 12/02/17 17:00 12/03/17 08:48 Solu-Cortef - IVPB 50 mg Q8H [facility] Administration Norepinephrine Bitartrate 8, 500 mls @ 18.75 mls/hr 12/02/17 20:00 12/03/17 15:05 000 mcg/ Dextrose IV 30 mcg/min TITR [facility] 112.5 mls/hr Administration Protocol 5 MCG/MIN Insulin Aspart 1 vial 12/02/17 07:00 12/03/17 12:23 Novolog Vial Sliding Scale - SQ 2 units ACHS [facility] Administration Protocol Insulin Detemir 20 units 12/03/17 07:00 12/03/17 06:54 Levemir Vial SQ 20 units AM [facility] Administration Methimazole 10 mg 11/29/17 22:00 12/03/17 12:22 Tapazole - PO Not Given BID [facility] Morphine Sulfate 2 mg 12/01/17 11:32 12/03/17 08:37 Morphine Sulfate IVPUSH 2 mg Q4H PRN Administration PAIN LEVEL 7 - 10 Pantoprazole Sodium 40 mg 11/30/17 10:00 12/03/17 12:22 Protonix - PO Not Given DAILY [facility] ASSESSMENT/PLAN: Patient is a 67 year old male with past medical history of 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 Initially BIBEMS from [facility] and admitted to ICU w/ septic shock 2/2 UTI. Stabilized and transferred to floors. Now re-admitted to ICU with episode of rapid afib and hypotension, non-reponsive to bolus, s/p cardioversion and amiodarone gtt initiation. 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 -Levophed increased to 20mcg/min -Amiodarone drip discontinued. -Started Amiodarone 400mg BID PO. -Continue Methimazole 10mg BID -Solu-cortef decreased to 50mg q6h. -Started Fludrocortisone 0.05mg daily. -INR 3.04. Hold Warfarin for now. -will continue to monitor INR, to keep at 2-3. -Digoxin PRN for rate control -Plavix discontinued. 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 Ortiz) consulted. Recommendations appreciated. -tapazole 10mg bid -iv solucortef 50mg bid -po florinef .1mg hs -repeat tsh - 0.1 -free t4 - 1.45 -am cortisol pending -acth pending #Pulmonary 1)Acute on chronic hypoxic respiratory failure -patient desaturated overnight to 60s-70s -initially placed on nonrebreather mask, with no improvement -Bag-mask valve increased saturation, patient stabilized on bipap. -Nebs PRN 2)Pulmonary Metastases -CXR : bilateral diffuse lung nodules, metastatic lesions. -CT Scan (11/05/17): shows multiple mets to liver, lungs, worsening hydronephrosis, suspicious for distal ureteral strictures at conduit, worsening L2-L4 bone metastases, new right adrenal metastases #Urology/Renal -s/p cystectomy and ileal conduit for Metastatic Bladder Ca -Urology following (Dr. Ruddy Mcguire). -Nephrology following (Dr. Baltazar). #F/E/N -not on any standing fluids -Strict Is & Os -monitor electrolytes and replete as necessary -NPO #Prophylaxis 1)DVT -patient on Warfarin 2)GI -Protonix #Dispo -DNR/DNI -Talked to family today regarding GOC. They want comfort care for the patient, but will decide upon it tomorrow. -As for now, they do not want anymore labs or imaging done. Consent signed in the DNR/DNI form. -We will continue to follow the patient in the ICU. Thank you for this consultative opportunity. Visit type - Emergency Visit Emergency Visit: Yes ED Registration Date: 11/05/17 Care time: The patient presented to the Emergency Department on the above date and was hospitalized for further evaluation of their emergent condition. - New Patient This patient is new to me today: Yes Date on this admission: 12/03/17 - Critical Care Critical Care patient: Yes Total Critical Care Time (in minutes): 40 Critical Care Statement: The care of this patient involved high complexity decision making to prevent further life threatening deterioration of the patient 's condition and/or to evaluate & treat vital organ system(s) failure or risk of failure.
--- NOTE | 2017-12-03 16:39 | PN ---
Progress Note, Physician History of Present Illness: Pt seen and examined at bedside. He remains in ICU. He remains on Bipap. Pt is lethargic. - Current Medication List Current Medications: Active Medications Acetaminophen (Tylenol -) 650 mg PO Q4H PRN PRN Reason: FEVER Acetaminophen (Tylenol -) 650 mg PO Q4H PRN PRN Reason: PAIN LEVEL 1 - 3 Amiodarone HCl (Cordarone -) 400 mg PO BID [facility] Last Admin: 12/03/17 12:22 Dose: Not Given Aspirin (Asa -) 81 mg PO DAILY [facility] Last Admin: 12/03/17 12:22 Dose: Not Given Atorvastatin Calcium (Lipitor -) 40 mg PO HS [facility] Last Admin: 12/02/17 21:39 Dose: Not Given Chlorhexidine Gluconate (Hibiclens For Decolonization -) 1 applic TP HS [facility] Last Admin: 12/02/17 21:42 Dose: 1 applic Fludrocortisone Acetate (Florinef -) 0.1 mg PO DAILY [facility] Last Admin: 12/03/17 12:22 Dose: Not Given Hydrocortisone Sodium Succinate (Solu-Cortef -) 50 mg IVPB Q8H [facility] Last Admin: 12/03/17 08:48 Dose: 50 mg Norepinephrine Bitartrate 8, (000 mcg/ Dextrose) 500 mls @ 18.75 mls/hr IV TITR [facility]; Protocol Last Titration: 12/03/17 16:07 Dose: 25 mcg/min, 93.75 mls/hr Insulin Aspart (Novolog Vial Sliding Scale -) 1 vial SQ ACHS [facility]; Protocol Last Admin: 12/03/17 12:23 Dose: 2 units Insulin Detemir (Levemir Vial) 20 units SQ AM [facility] Last Admin: 12/03/17 06:54 Dose: 20 units Methimazole (Tapazole -) 10 mg PO BID [facility] Last Admin: 12/03/17 12:22 Dose: Not Given Morphine Sulfate (Morphine Sulfate) 2 mg IVPUSH Q4H PRN PRN Reason: PAIN LEVEL 7 - 10 Last Admin: 12/03/17 15:41 Dose: 2 mg Pantoprazole Sodium (Protonix -) 40 mg PO DAILY [facility] Last Admin: 12/03/17 12:22 Dose: Not Given - Objective Vital Signs: Vital Signs Temperature 97.5 F L 12/03/17 13:09 Pulse Rate 103 H 12/03/17 16:07 Respiratory Rate 22 H 12/03/17 13:09 Blood Pressure 160/103 H 12/03/17 16:07 O2 Sat by Pulse Oximetry (%) 98 12/03/17 11:04 Constitutional: Yes: Calm Eyes: Yes: Conjunctiva Clear Cardiovascular: Yes: S1, S2 Respiratory: Yes: On BiPap, Rhonchi Gastrointestinal: Yes: Soft Genitourinary: Yes: Salas Present, Other (nephrostomy tube) Edema: Yes Edema: LLE: 1+, RLE: 1+ Neurological: Yes: Lethargy Labs: CBC, BMP 12/03/17 05:30 12/03/17 05:30 INR, PTT INR 3.56 (0.83-1.09) H 12/03/17 05:30 - ....Imaging Chest X-ray: Report Reviewed Problem List - Problems (1) Hydronephrosis Code(s): N13.30 - UNSPECIFIED HYDRONEPHROSIS (2) Sepsis Code(s): A41.9 - SEPSIS, UNSPECIFIED ORGANISM Qualifiers: Sepsis type: sepsis due to unspecified organism Qualified Code(s): A41.9 - Sepsis, unspecified organism (3) UTI (urinary tract infection) Code(s): N39.0 - URINARY TRACT INFECTION, SITE NOT SPECIFIED Qualifiers: Urinary tract infection type: acute cystitis Hematuria presence: with hematuria Qualified Code(s): N30.01 - Acute cystitis with hematuria (4) Renal dysfunction Code(s): N28.9 - DISORDER OF KIDNEY AND URETER, UNSPECIFIED Assessment/Plan Current Medications Generic Name Dose Route Start Last Admin Trade Name Freq PRN Reason Stop Dose Admin Acetaminophen 650 mg 11/29/17 13:53 Tylenol - PO Q4H PRN FEVER Acetaminophen 650 mg 11/29/17 13:53 Tylenol - PO Q4H PRN PAIN LEVEL 1 - 3 Amiodarone HCl 400 mg 11/30/17 22:00 12/03/17 12:22 Cordarone - PO Not Given BID [facility] Aspirin 81 mg 11/30/17 10:00 12/03/17 12:22 Asa - PO Not Given DAILY [facility] Atorvastatin Calcium 40 mg 11/29/17 22:00 12/02/17 21:39 Lipitor - PO Not Given HS [facility] Chlorhexidine Gluconate 1 applic 11/27/17 22:00 12/02/17 21:42 Hibiclens For Decolonization - TP 1 applic HS [facility] Administration Fludrocortisone Acetate 0.1 mg 12/03/17 10:00 12/03/17 12:22 Florinef - PO Not Given DAILY [facility] Hydrocortisone Sodium Succinate 50 mg 12/02/17 17:00 12/03/17 08:48 Solu-Cortef - IVPB 50 mg Q8H [facility] Administration Norepinephrine Bitartrate 8, 500 mls @ 18.75 mls/hr 12/02/17 20:00 12/03/17 16:07 000 mcg/ Dextrose IV 25 mcg/min TITR [facility] 93.75 mls/hr Titration Protocol 5 MCG/MIN Insulin Aspart 1 vial 12/02/17 07:00 12/03/17 12:23 Novolog Vial Sliding Scale - SQ 2 units ACHS [facility] Administration Protocol Insulin Detemir 20 units 12/03/17 07:00 12/03/17 06:54 Levemir Vial SQ 20 units AM [facility] Administration Methimazole 10 mg 11/29/17 22:00 12/03/17 12:22 Tapazole - PO Not Given BID [facility] Morphine Sulfate 2 mg 12/01/17 11:32 12/03/17 15:41 Morphine Sulfate IVPUSH 2 mg Q4H PRN Administration PAIN LEVEL 7 - 10 Pantoprazole Sodium 40 mg 11/30/17 10:00 12/03/17 12:22 Protonix - PO Not Given DAILY [facility] Impression 1. CKD 2. altered mental status 3. a-fib 4. DM 5. HTN 6. hx bladder cancer 7. leukocytosis 8. sepsis 9. hyperkalemia 10. chon 11. rapid a-fib 12. hypotension 13. resp failure requiring bipap Plan - renal function is worse and urine output worsening - cont support care - per primary team, family want comfort care but will decide tomorrow - cont bipap - cxr reviewed - hold fluids - monitor pulse ox - monitor urine output - pt likely developing ATN - will need to discuss GOC - will follow Dr Baltazar
[2017-12-03] MEDS: ATORVASTATIN CA 40 MG TABLET (FP) PO SCH (21:41)
[2017-12-03] MEDS: CHLORHEXIDINE GLUCONATE 4% CLEANSER FOR DECOLONIZATION TP SCH (22:13)
[2017-12-04] MEDS: NOREPINEPHRINE BITARTRATE 8,000 MCG in DEXTROSE 5%-WATER - 492 ML IV SCH (00:37)
[2017-12-04] MEDS: HYDROCORTISONE SOD SUCCINATE 100 MG/2 ML VIAL IVPB SCH (00:37)
[2017-12-04] MEDS ORDERED: NOREPINEPHRINE BITARTRATE 4 MG/4 ML ML IV ONE (03:03)
[2017-12-04 06:06] LABS: CORTISOL AM 74.7 ug/dL (.)
[2017-12-04 06:35] VITALS: TEMP 96.8
[2017-12-04] MEDS: INSULIN SLIDING SCALE (NOVOLOG) 1 VIAL SQ SCH (06:36)
[2017-12-04] MEDS: INSULIN (LEVEMIR) 100 UNITS/ML UNITS SQ SCH (06:36)
[2017-12-04 08:15] VITALS: BP 94/60; PULSE 36
--- NOTE | 2017-12-04 08:17 | PN ---
Progress Note, Physician - Current Medication List Current Medications: Active Medications Acetaminophen (Tylenol -) 650 mg PO Q4H PRN PRN Reason: FEVER Acetaminophen (Tylenol -) 650 mg PO Q4H PRN PRN Reason: PAIN LEVEL 1 - 3 Amiodarone HCl (Cordarone -) 400 mg PO BID [facility] Last Admin: 12/03/17 21:41 Dose: Not Given Aspirin (Asa -) 81 mg PO DAILY [facility] Last Admin: 12/03/17 12:22 Dose: Not Given Atorvastatin Calcium (Lipitor -) 40 mg PO HS [facility] Last Admin: 12/03/17 21:41 Dose: Not Given Chlorhexidine Gluconate (Hibiclens For Decolonization -) 1 applic TP HS [facility] Last Admin: 12/03/17 22:13 Dose: 1 applic Fludrocortisone Acetate (Florinef -) 0.1 mg PO DAILY [facility] Last Admin: 12/03/17 12:22 Dose: Not Given Hydrocortisone Sodium Succinate (Solu-Cortef -) 50 mg IVPB Q8H [facility] Last Admin: 12/04/17 00:37 Dose: 50 mg Norepinephrine Bitartrate 8, (000 mcg/ Dextrose) 500 mls @ 18.75 mls/hr IV TITR [facility]; Protocol Last Admin: 12/04/17 00:37 Dose: 25 mcg/min, 93.75 mls/hr Insulin Aspart (Novolog Vial Sliding Scale -) 1 vial SQ ACHS [facility]; Protocol Last Admin: 12/04/17 06:36 Dose: Not Given Insulin Detemir (Levemir Vial) 20 units SQ AM [facility] Last Admin: 12/04/17 06:36 Dose: Not Given Methimazole (Tapazole -) 10 mg PO BID [facility] Last Admin: 12/03/17 21:41 Dose: Not Given Morphine Sulfate (Morphine Sulfate) 2 mg IVPUSH Q4H PRN PRN Reason: PAIN LEVEL 7 - 10 Last Admin: 12/03/17 19:30 Dose: 2 mg Pantoprazole Sodium (Protonix -) 40 mg PO DAILY [facility] Last Admin: 12/03/17 12:22 Dose: Not Given - Objective Vital Signs: Vital Signs Temperature 96.8 F L 12/04/17 06:00 Pulse Rate 36 L 12/04/17 08:00 Respiratory Rate 15 12/04/17 08:00 Blood Pressure 94/60 12/04/17 08:00 O2 Sat by Pulse Oximetry (%) 100 12/04/17 08:01 Cardiovascular: Yes: Bradycardia, S1, S2 Respiratory: Yes: On BiPap Labs: CBC, BMP 12/03/17 05:30 12/03/17 05:30 INR, PTT INR 3.56 (0.83-1.09) H 12/03/17 05:30 Problem List - Problems (1) Adrenal mass Code(s): E27.9 - DISORDER OF ADRENAL GLAND, UNSPECIFIED (2) Atrial fibrillation Code(s): I48.91 - UNSPECIFIED ATRIAL FIBRILLATION Qualifiers: Atrial fibrillation type: persistent Qualified Code(s): I48.1 - Persistent atrial fibrillation (3) CHF (congestive heart failure) Code(s): I50.9 - HEART FAILURE, UNSPECIFIED (4) 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 Code(s): C67.9 - MALIGNANT NEOPLASM OF BLADDER, UNSPECIFIED; C78.7 - SECONDARY MALIG NEOPLASM OF LIVER AND INTRAHEPATIC BILE DUCT (5) Diabetes Code(s): E11.9 - TYPE 2 DIABETES MELLITUS WITHOUT COMPLICATIONS Assessment/Plan - Problems (1) Respiratory Failure Assessment/Plan: -Bipap -Icu monitoring -Palliative care -Will d/w family--unable to reach this am (2) Hydronephrosis Assessment/Plan: -R hydronephrosis -s/p R percutaneous nephrostomy tube -nephrology and urology on board -diuretic renal scan to assess patency or right ureter, as there was no output from nephrostomy Code(s): N13.30 - UNSPECIFIED HYDRONEPHROSIS (3) Sepsis Assessment/Plan: -finished IV ABT -continue routine labs monitor CBC -pt afebrile, last lactic acid WNL Code(s): A41.9 - SEPSIS, UNSPECIFIED ORGANISM Qualifiers: Sepsis type: sepsis due to unspecified organism Qualified Code(s): A41.9 - Sepsis, unspecified organism (4) Anemia Assessment/Plan: -serial CBC x 5 to monitor H/H -stool occult negative -iron profile shows iron deficiency, B12 and Thyroid unremarkable -Venofer Infusion x 1 yesterday Code(s): D64.9 - ANEMIA, UNSPECIFIED (5) Atrial fibrillation with rapid ventricular response ON AMIODORONE TRIAL OF DIG CARDIO ON BOARD Code(s): I48.91 - UNSPECIFIED ATRIAL FIBRILLATION (6) 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
--- NOTE | 2017-12-04 13:52 | PN ---
Physical Exam: SUBJECTIVE: Patient seen and examined at bedside this morning. Patient unresponsive to voice and sternal rub. Eyes open, non reactive to light. On max dose of Levophed. OBJECTIVE: Vital Signs Period Temp Pulse Resp BP Sys/Maynard Pulse Ox Last 24 Hr 96.8 F-97.4 F 36-105 15-28 51-197/36-115 88-100 GENERAL: The patient on bipap, unresponsive to voice and pain. HEAD: Normal with no signs of trauma. EYES: Eyes nonreactive to light. ENT: Ears normal, nares patent, dry mucous membranes. NECK: Trachea midline, full range of motion, supple. LUNGS: +Coarse breath sounds bilaterally HEART: Regular rate, S1, S2 without murmur, rub or gallop. ABDOMEN: Soft, nontender, nondistended, normoactive bowel sounds. EXTREMITIES: 1+ pulsesno edema. SKIN: Warm, dry, normal turgor Laboratory Results - last 24 hr 12/03/17 12/03/17 12/03/17 05:30 12:19 12:21 POC Glucometer 58.62838 186.44866 Cortisol AM Sample 74.7 12/03/17 12/03/17 17:16 21:48 POC Glucometer 164.40338 201.23367 Cortisol AM Sample ASSESSMENT/PLAN: Patient is a 67 year old male with past medical history of 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 Initially BIBEMS from [facility] and admitted to ICU w/ septic shock 2/2 UTI. Stabilized and transferred to floors. Now re-admitted to ICU with episode of rapid afib and hypotension, non-reponsive to bolus, s/p cardioversion and amiodarone gtt initiation. 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 -Levophed increased to 20mcg/min -Amiodarone drip discontinued. -Started Amiodarone 400mg BID PO. -Continue Methimazole 10mg BID -Solu-cortef decreased to 50mg q6h. -Started Fludrocortisone 0.05mg daily. -Digoxin PRN for rate control -Plavix discontinued. 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 Ortiz) consulted. Recommendations appreciated. -tapazole 10mg bid -iv solucortef 50mg bid -po florinef .1mg hs -repeat tsh - 0.1 -free t4 - 1.45 -am cortisol pending -acth pending #Pulmonary 1)Acute on chronic hypoxic respiratory failure -patient desaturated overnight to 60s-70s -initially placed on nonrebreather mask, with no improvement -Bag-mask valve increased saturation, patient stabilized on bipap. -Nebs PRN 2)Pulmonary Metastases -CXR : bilateral diffuse lung nodules, metastatic lesions. -CT Scan (11/05/17): shows multiple mets to liver, lungs, worsening hydronephrosis, suspicious for distal ureteral strictures at conduit, worsening L2-L4 bone metastases, new right adrenal metastases #Urology/Renal -s/p cystectomy and ileal conduit for Metastatic Bladder Ca -Urology following (Dr. Ruddy Mcguire). -Nephrology following (Dr. Baltazar). #F/E/N -not on any standing fluids -Strict Is & Os -monitor electrolytes and replete as necessary -NPO #Prophylaxis 1)DVT -patient on Warfarin 2)GI -Protonix #Dispo -DNR/DNI Visit type - Emergency Visit Emergency Visit: Yes ED Registration Date: 11/05/17 Care time: The patient presented to the Emergency Department on the above date and was hospitalized for further evaluation of their emergent condition. - New Patient This patient is new to me today: Yes Date on this admission: 12/04/17 - Critical Care Critical Care patient: Yes Total Critical Care Time (in minutes): 40 Critical Care Statement: The care of this patient involved high complexity decision making to prevent further life threatening deterioration of the patient 's condition and/or to evaluate & treat vital organ system(s) failure or risk of failure.
--- NOTE | 2017-12-04 15:35 | PN ---
Progress Note (short form) - Note Progress Note: Patient seen and examined at bedside. He was noted to be in Asystole. He had no pulses. Pupils dilated and fixed. Corneal reflexes absent. Doll eye reflex absent. No response to painful stimuli. No spontaneous breathing on auscultation. No cardiac sounds on auscultation. BP unrecordable. Patient pronounced at 09:20 AM. Family called multiple times with no answer. Family came at around 2pm. Family informed. Arrangements made for them to see patient. Primary team informed.
[2017-12-04 16:27] LABS: ADRENOCORTICOTROPIC HORMONE 87.3 pg/mL (7.2-63.3)
== END 2017-12-04 09:20 | disposition expired | DRG 871 ==
LOC: JER 08:33 → JERBED 13:29 → JICU 15:09 → J6S 11-09 16:30 → J4W 11-17 14:05 → JICU 11-27 16:47
PROVIDERS: ADMIT Family Medicine; ATTEND Family Medicine
PROC: 0T9030Z Drainage of Right Kidney with Drainage Device, Percutaneous Approach (ICD-10-PCS; principal; 2017-11-16)
PROC: BT11YZZ Fluoroscopy of Right Kidney using Other Contrast (ICD-10-PCS; 2017-11-16)
PROC: 02HV33Z Insertion of Infusion Device into Superior Vena Cava, Percutaneous Approach (ICD-10-PCS; 2017-11-27)
PROC: B548ZZA Ultrasonography of Superior Vena Cava, Guidance (ICD-10-PCS; 2017-11-27)
DX: A41.9 Sepsis, unspecified organism (principal); R65.21 Severe sepsis with septic shock; J96.21 Acute and chronic respiratory failure with hypoxia; C78.00 Secondary malignant neoplasm of unspecified lung; C78.7 Secondary malignant neoplasm of liver and intrahepatic bile duct; C79.51 Secondary malignant neoplasm of bone; N17.9 Acute kidney failure, unspecified; I50.22 Chronic systolic (congestive) heart failure; N13.30 Unspecified hydronephrosis; N39.0 Urinary tract infection, site not specified; E27.40 Unspecified adrenocortical insufficiency; I48.1 Persistent atrial fibrillation; E87.2 Acidosis; I13.0 Hypertensive heart and chronic kidney disease with heart failure and stage 1 through stage 4 chronic kidney disease, or unspecified chronic kidney disease; C79.71 Secondary malignant neoplasm of right adrenal gland; E87.1 Hypo-osmolality and hyponatremia; Z79.01 Long term (current) use of anticoagulants; I25.10 Atherosclerotic heart disease of native coronary artery without angina pectoris; K21.9 Gastro-esophageal reflux disease without esophagitis; I11.0 Hypertensive heart disease with heart failure; F32.9 Major depressive disorder, single episode, unspecified; C67.9 Malignant neoplasm of bladder, unspecified; D64.9 Anemia, unspecified; I25.5 Ischemic cardiomyopathy; F41.9 Anxiety disorder, unspecified; E78.5 Hyperlipidemia, unspecified; R79.1 Abnormal coagulation profile; Z79.4 Long term (current) use of insulin; E87.5 Hyperkalemia; Z93.2 Ileostomy status; E27.9 Disorder of adrenal gland, unspecified; Z95.5 Presence of coronary angioplasty implant and graft; N18.9 Chronic kidney disease, unspecified; B96.5 Pseudomonas (aeruginosa) (mallei) (pseudomallei) as the cause of diseases classified elsewhere; E66.9 Obesity, unspecified; E11.22 Type 2 diabetes mellitus with diabetic chronic kidney disease; E87.6 Hypokalemia; E88.09 Other disorders of plasma-protein metabolism, not elsewhere classified; E05.90 Thyrotoxicosis, unspecified without thyrotoxic crisis or storm; Z66 Do not resuscitate; Z68.29 Body mass index [BMI] 29.0-29.9, adult
CPT/HCPCS: 36415; 36430; 36511; 36600; 50432; 71045-TC-FY; 74176-TC; 76000-TC-FY; 76098-TC-FY; 76998-TC; 78708-TC; 80048; 80053; 80061; 81003; 81015; 82024; 82248; 82272; 82533; 82550; 82553; 82803; 82962; 83036; 83605; 83721; 83735; 84100; 84439; 84443; 84484; 85025; 85027; 85610; 85730; 86850; 86900; 86901; 87040; 87070; 87075; 87086; 87186; 87205; 87899; 93005; 93010; 93970-TC; 94640; 94660; 99285-25; A4358; A9562; C1729; C1769; G0480; J0131; J0833; J1644; J1756; J7030; P9034; P9038